=== PATIENT | female | born 1950 | race Caucasian/White ===

== ENCOUNTER → 2017-07-30 12:55 | Outpatient (CLI) | payer MEDICARE, OTHER, SELFPAY ==
--- NOTE | 2017-07-30 12:58 | HPBI_ITS ---
MAMMOGRAPHY - UNILATERAL DIAGNOSTIC: LEFT BREAST REASON FOR EXAM: Female, 67 years old. Six-month follow-up for a ultrasound-guided biopsy of the left breast. PERTINENT HISTORY: Sister with breast cancer. TECHNIQUE: Digital unilateral breast reginald (3D mammographic acquisition) in the CC and MLO projections. 2-D mediolateral oblique (MLO) and craniocaudad (CC) views of both breasts were obtained. CAD: Full Field Digital Mammography with Computer Added Detection was performed. COMPARISON: Comparison is made with prior sonogram of the left breast dated January 19, 2017 and prior mammogram dated December 28, 2016. FINDINGS: Breast Composition: The breasts are heterogeneously dense, which may obscure small masses. There are no dominant masses or suspicious calcifications. A tissue clip marker is seen in the retroareolar region of the left breast in keeping with prior biopsy. The nodular density has decreased in size. No other significant abnormalities are identified. HPBI/DIAG MAMM W/CAD, UNILAT IMPRESSION: Stable unilateral diagnostic mammogram. One year follow-up mammogram recommended. (A) ASSESSMENT CATEGORY: BIRADS Category 2: Benign. A letter regarding these results will be sent to the patient by the facility within 30 days. Approximately 10% of breast cancers are not detected by mammography. A normal mammogram should not delay biopsy of a clinically suspicious abnormality. Electronically Signed: Dmitri Riley MD at 14:11 EST Tel [phone], Service support ,
== END ==
PROVIDERS: Family Provider Family Medicine; PCP Family Medicine; Visit Provider Family Medicine
DX: R92.8 Other abnormal and inconclusive findings on diagnostic imaging of breast (principal); Z80.3 Family history of malignant neoplasm of breast
CPT/HCPCS: 77061; 77065; G0279

== ENCOUNTER → 2017-09-19 10:21 | Outpatient (CLI) | payer MEDICARE, OTHER, SELFPAY ==
--- NOTE | 2017-09-19 10:42 | RAD_ITS ---
STUDY: X-RAY - RIGHT KNEE REASON FOR EXAM: Female, 67 years old. Worsening right knee pain. TECHNIQUE: 4 view(s) of the knee. COMPARISON: None. FINDINGS: Normal visualized distal femur. Normal visualized proximal tibia and fibula. Normal proximal tibiofibular articulation. There is severe degenerative arthrosis of the medial femorotibial compartment with severe joint space narrowing. Normal lateral femorotibial compartment. There is mild degenerative arthrosis of the patellofemoral articulation. The soft tissue structures are unremarkable. RAD/Knee 4 or More Views IMPRESSION: Degenerative arthrosis. Electronically Signed: Dmitri Riley MD at 16:03 EDT Tel [phone], Service support ,
[2017-09-19 11:02] LABS: Absolute Lymphocyte Count 2.39 X10^3/ul (0.83-4.51); Absolute Neutrophil Count 3.6 X10^3/uL (2.0-7.7); Basophil# 0.05 X10^3/uL; Basophil% 0.8 % (0-1); Eosinophil# 0.23 X10^3/uL; Eosinophils% 3.5 % (0-5); Hematocrit 41.4 % (37-47); Hemoglobin 13.8 g/dl (12.0-15.0); Lymphocyte # 2.39 X10^3/ul (4.0); Lymphocyte % 36.2 % (19-41); Mean Corp Hgb Conc 33.3 g/gl (32-36); Mean Corpuscular Hgb 31.1 pg (27.0-32.0); Mean Corpuscular Volume 93.2 fL (81-99); Mean Platelet Vol. 9.7 fl (6.2-12.0); Monocyte# 0.38 X10^3/uL; Monocyte% 5.7 % (0-10); Neutrophil # 3.55 X10^3/uL (2.7-7.7); Neutrophil % 53.6 % (47-70); POSITIVE COUNT NO; POSITIVE DIFFERENTIAL NO; POSITIVE MORPHOLOGY NO; Platelet Count 290 K/mm3 (150-450); Red Blood Count 4.44 M/mm3 (4.2-5.4); White Blood Count 6.6 K/mm3 (4.4-11.0)
[2017-09-19 11:31] LABS: ALB/GLOB Ratio 1.1 RATIO (0.9-2.4); AST(SGOT) 24 U/L (15-37); Alanine Aminotransfer ALT/SGPT 24 U/L (13-56); Alkaline Phosphatase 86 U/L (45-117); Anion Gap 8 (5-15); BUN 17 mg/dL (7-18); BUN/Creat Ratio 20.2 RATIO (10-20); Calcium,Total 9.5 mg/dL (8.5-10.1); Chloride 102 mmol/L (98-107); Creatinine, Serum 0.84 mg/dL (0.55-1.02); EST Glomerular Filtration Rate 72 mL/min (>60); Est Glom Filt Rate - Afr Amer 87 mL/min (>60); Globulin 3.8 g/dL (2.2-4.2); Glucose 99 mg/dL (74-106); Iron 94 ug/dL (50-170); Potassium 4.5 mmol/L (3.5-5.1); Protein, Total 7.8 g/dL (6.4-8.2); Sodium Level 140 mmol/L (136-145)
[2017-09-19 11:35] LABS: Vitamin B12 1238 pg/mL (211-911)
== END ==
PROVIDERS: Family Provider Family Medicine; PCP Family Medicine; Visit Provider Family Medicine
DX: M25.561 Pain in right knee (principal); D64.9 Anemia, unspecified; R53.83 Other fatigue; E61.1 Iron deficiency; E53.8 Deficiency of other specified B group vitamins
CPT/HCPCS: 36415; 73564; 80053; 82607; 83540; 85025

== ENCOUNTER → 2018-01-03 11:56 | Outpatient (CLI) | payer MEDICARE, OTHER, SELFPAY ==
--- NOTE | 2018-01-03 11:58 | BI_ITS ---
MAMMOGRAPHY - BILATERAL SCREENING 3-D ARCHIE SYNTHESIS REASON FOR EXAM: Female, 67 years old. Bilateral Screening 3-D tomosynthesis PERTINENT HISTORY: Sister with breast cancer.. TECHNIQUE: 2-D mammograms and 3-D Archie synthesis of the breast (s) were performed. CAD was performed. COMPARISON: None. FINDINGS: The breast composition is heterogeneously dense that can obscure small breast masses. Scattered benign calcifications are seen. No dense spiculated masses or suspicious microcalcifications are identified. No architectural distortion is identified. There is no skin thickening or retraction. There has been no significant change since the prior study. BI/SCREENING MAMM (CAD), BILAT IMPRESSION: No mammographic signs of malignancy. Routine yearly mammograms recommended. ASSESSMENT CATEGORY: BIRADS Category 2: Benign. A letter regarding these results will be sent to the patient by the facility within 30 days. FOLLOW UP RECOMMENDATION: Yearly follow up mammogram recommended. (A) Approximately 10% of breast cancers are not detected by mammography. A normal mammogram should not delay biopsy of a clinically suspicious abnormality. Electronically Signed: Travis Suarez MD at 12:50 EDT , Service support ,
== END ==
PROVIDERS: Family Provider Family Medicine; PCP Family Medicine; Visit Provider Family Medicine
DX: Z12.31 Encounter for screening mammogram for malignant neoplasm of breast (principal)
CPT/HCPCS: 77063; 77067

== ENCOUNTER → 2018-05-14 11:39 | Outpatient (CLI) | payer MEDICARE, OTHER, SELFPAY ==
[2018-05-14 12:21] LABS: Absolute Lymphocyte Count 1.99 X10^3/ul (0.83-4.51); Absolute Neutrophil Count 4.2 X10^3/uL (2.0-7.7); Basophil# 0.03 X10^3/uL; Basophil% 0.4 % (0-1); Eosinophil# 0.12 X10^3/uL; Eosinophils% 1.8 % (0-5); Hematocrit 41.9 % (37-47); Hemoglobin 13.8 g/dl (12.0-15.0); Lymphocyte # 1.99 X10^3/ul (4.0); Lymphocyte % 29.7 % (19-41); Mean Corp Hgb Conc 32.9 g/gl (32-36); Mean Corpuscular Hgb 30.7 pg (27.0-32.0); Mean Corpuscular Volume 93.1 fL (81-99); Mean Platelet Vol. 9.6 fl (6.2-12.0); Monocyte# 0.32 X10^3/uL; Monocyte% 4.8 % (0-10); Neutrophil # 4.23 X10^3/uL (2.7-7.7); Neutrophil % 63.2 % (47-70); Platelet Count 293 K/mm3 (150-450); RBC Distribution Width CV 12.2 % (11.6-14.6); RBC Distribution Width SD 41.2 fl (35.1-43.9); White Blood Count 6.7 K/mm3 (4.4-11.0)
[2018-05-14 12:25] LABS: POSITIVE COUNT NO; POSITIVE DIFFERENTIAL NO; POSITIVE MORPHOLOGY NO
== END ==
LOC: LAB.FUTURE 11:42 → WOBLAB 17:06
PROVIDERS: Family Provider Family Medicine; PCP Family Medicine; Referring Provider Specialist; Visit Provider Obstetrics & Gynecology
DX: N39.0 Urinary tract infection, site not specified (principal); M17.11 Unilateral primary osteoarthritis, right knee
CPT/HCPCS: 36415; 85025; 87086

== ENCOUNTER → 2018-06-18 12:21 | Outpatient (CLI) | payer MEDICARE, OTHER, SELFPAY ==
--- NOTE | 2018-06-18 12:25 | US_ITS ---
STUDY: ULTRASOUND OF THE FEMALE PELVIS - COMPLETE REASON FOR EXAM: Female, 68 years old. Lower abdominal pain. TECHNIQUE: Transabdominal and Transvaginal TECHNICAL QUALITY: Adequate. COMPARISON: CT dated November 21, 2016 and a pelvic ultrasound dated August 15, 2010 FINDINGS: The uterus is anteverted and is in a midline position. The uterus measures 4.9 x 4.4 x 3.1 cm. Normal uterine cervix. The endometrium measures 1.6 mm in thickness, and is hyperechoic. There is no demonstrated endometrial mass. There is a 1.2 x 1.1 x 1.1 cm round hypoechoic focus within the posterior uterine fundus. I.U.D. - The patient does not have an I.U.D. The right ovary is non-visualized. The left ovary is non-visualized. There is no fluid in the cul-de-sac. US/Transvaginal Non- IMPRESSION: 1.2 x 1.1 x 1.1 cm round soft tissue focus within the uterine fundus that likely reflects an intramural fibroid. Nonvisualization of the ovaries. Electronically Signed: Trintiy Mendes MD at 17:20 EST Tel , Service support ,
--- NOTE | 2018-06-18 12:25 | US_ITS ---
STUDY: ULTRASOUND OF THE FEMALE PELVIS - COMPLETE REASON FOR EXAM: Female, 68 years old. Lower abdominal pain. TECHNIQUE: Transabdominal and Transvaginal TECHNICAL QUALITY: Adequate. COMPARISON: CT dated November 21, 2016 and a pelvic ultrasound dated August 15, 2010 FINDINGS: The uterus is anteverted and is in a midline position. The uterus measures 4.9 x 4.4 x 3.1 cm. Normal uterine cervix. The endometrium measures 1.6 mm in thickness, and is hyperechoic. There is no demonstrated endometrial mass. There is a 1.2 x 1.1 x 1.1 cm round hypoechoic focus within the posterior uterine fundus. I.U.D. - The patient does not have an I.U.D. The right ovary is non-visualized. The left ovary is non-visualized. There is no fluid in the cul-de-sac. US/Pelvic (Non ) IMPRESSION: 1.2 x 1.1 x 1.1 cm round soft tissue focus within the uterine fundus that likely reflects an intramural fibroid. Nonvisualization of the ovaries. Electronically Signed: Trinity Mendes MD at 17:20 EST Tel , Service support ,
== END ==
PROVIDERS: Referring Provider Obstetrics & Gynecology; Visit Provider Obstetrics & Gynecology
DX: R10.84 Generalized abdominal pain (principal)
CPT/HCPCS: 76830; 76856

== ENCOUNTER → 2018-06-19 12:05 | Outpatient (CLI) | payer MEDICARE, OTHER, SELFPAY ==
[2018-06-19 13:33] LABS: Hematocrit 42.8 % (37-47); Hemoglobin 13.9 g/dl (12.0-15.0); Mean Corp Hgb Conc 32.5 g/gl (32-36); Mean Corpuscular Hgb 30.2 pg (27.0-32.0); Platelet Count 279 K/mm3 (150-450); RBC Distribution Width CV 12.2 % (11.6-14.6); RBC Distribution Width SD 41.3 fl (35.1-43.9); White Blood Count 7.5 K/mm3 (4.4-11.0)
[2018-06-19 13:38] LABS: Scan Indicated on CBC? Y/N NO
== END ==
LOC: WOBLAB 05-22 15:01 → LAB 12:08
PROVIDERS: Family Provider Family Medicine; PCP Family Medicine; Referring Provider Obstetrics & Gynecology; Visit Provider Obstetrics & Gynecology
DX: R10.9 Unspecified abdominal pain (principal)
CPT/HCPCS: 36415; 82274; 83036; 84439; 84443; 84481; 85027; 87177; 87209; 87493; 87506

== ENCOUNTER → 2018-07-08 15:15 | Outpatient (CLI) | payer MEDICARE, OTHER, SELFPAY ==
[2018-07-08 15:23] LABS: Bacteria 0 SEEN /hpf (None Seen); Mucous, Urine 0 SEEN /hpf (<or=2+); Red Blood Cells-Urine 0 SEEN /hpf (0-5); Squamous Epithelial Cells - UA 0 SEEN /hpf (5-10); White Blood Cells 0 SEEN /hpf (0-5)
[2018-07-08 16:30] LABS: AST(SGOT) 19 U/L (15-37); Alanine Aminotransfer ALT/SGPT 25 U/L (13-56); Alkaline Phosphatase 86 U/L (45-117); Amylase 38 U/L (25-115); Anion Gap 12 (5-15); BUN 16 mg/dL (7-18); BUN/Creat Ratio 20.3 RATIO (10-20); Calcium,Total 9.4 mg/dL (8.5-10.1); Chloride 102 mmol/L (98-107); Creatinine, Serum 0.79 mg/dL (0.55-1.02); EST Glomerular Filtration Rate 77 mL/min (>60); Est Glom Filt Rate - Afr Amer 93 mL/min (>60); Globulin 3.9 g/dL (2.2-4.2); Glucose 93 mg/dL (74-106); Lipase 80 U/L (73-393); Magnesium 2.3 mg/dL (1.6-2.6); Potassium 3.7 mmol/L (3.5-5.1); Protein, Total 7.9 g/dL (6.4-8.2); Sodium Level 139 mmol/L (136-145); Thyroid Stim Hormone (TSH) 1.09 uIU/mL (0.358-3.74)
[2018-07-08 18:31] LABS: Color, Urine Yellow (Yellow); Glucose, Dipstick Normal (Normal); Ketone-Dipstick Negative (Negative); Leukocyte Esterase-Dipstick 25 /ul (Negative); Nitrite-Dipstick Negative (Negative); Occult Blood-Urine Negative /ul (Negative); Protein-Dipstick Negative (Negative); Urine Bilirubin Dipstick Negative (Negative); Urine Clarity Clear (Clear); Urine Urobilinogen Normal (Normal)
[2018-07-08 20:30] LABS: Chlamydia Trachomatis by PCR Negative (Negative); Neisserai gonorrhoeae by PCR Negative (Negative); Probe Check PASS; Sample Adequacy Control PASS; Specimen Processing Control PASS
== END ==
PROVIDERS: Family Provider Family Medicine; PCP Family Medicine; Referring Provider Family Medicine; Visit Provider Family Medicine
DX: R19.7 Diarrhea, unspecified (principal); R10.9 Unspecified abdominal pain; R53.83 Other fatigue; R30.0 Dysuria; N76.0 Acute vaginitis
CPT/HCPCS: 36415; 80053; 81001; 82150; 83690; 83735; 84443; 87491; 87591

== ENCOUNTER → 2018-10-08 15:15 | Outpatient (CLI) | payer MEDICARE, OTHER, SELFPAY ==
[2018-10-08 17:18] LABS: ALB/GLOB Ratio 1.1 RATIO (0.9-2.4); AST(SGOT) 20 U/L (15-37); Alanine Aminotransfer ALT/SGPT 23 U/L (13-56); Alkaline Phosphatase 86 U/L (45-117); Anion Gap 10 (5-15); BUN 16 mg/dL (7-18); BUN/Creat Ratio 18.5 RATIO (10-20); Calcium,Total 9.3 mg/dL (8.5-10.1); Chloride 99 mmol/L (98-107); Creatinine, Serum 0.87 mg/dL (0.55-1.02); EST Glomerular Filtration Rate 69 mL/min (>60); Est Glom Filt Rate - Afr Amer 83 mL/min (>60); Free T3 2.9 pg/mL (2.18-3.98); Globulin 3.7 g/dL (2.2-4.2); Glucose 92 mg/dL (74-106); Potassium 3.8 mmol/L (3.5-5.1); Protein, Total 7.7 g/dL (6.4-8.2); Sodium Level 136 mmol/L (136-145); T4 Free Direct 1.05 ng/dL (0.76-1.46); Thyroid Stim Hormone (TSH) 1.54 uIU/mL (0.358-3.74)
== END ==
PROVIDERS: Family Provider Family Medicine; PCP Family Medicine; Referring Provider Family Medicine; Visit Provider Family Medicine
DX: R53.83 Other fatigue (principal); R06.02 Shortness of breath
CPT/HCPCS: 36415; 80053; 84439; 84443; 84481

== ENCOUNTER → 2018-10-10 11:14 | Outpatient (CLI) | payer MEDICARE, OTHER, SELFPAY ==
--- NOTE | 2018-10-10 11:17 | US_ITS ---
STUDY: ULTRASOUND BREAST - LEFT REASON FOR EXAM: Female, 68 years old. Pain in the left breast. TECHNIQUE: Axial and longitudinal images of the LEFT breast were performed with a high resolution ultrasound transducer. COMPARISON: Comparison is made with prior ultrasound of the left breast dated January 19, 2017 and January 01, 2017. FINDINGS: LEFT Breast: There is a 7 mm x 7 mm x 5 mm well-defined hypoechoic solid nodule at the 9:00 position of the breast. This was previously biopsied. US/Breast Limited Unilateral IMPRESSION: Prior biopsy of a small benign-appearing hypoechoic solid nodule at the 9:00 position of the breast. No other abnormality is seen. ASSESSMENT CATEGORY: BIRADS Category 2: Benign. A letter regarding these results will be sent to the patient by the facility within 30 days. Electronically Signed: Dmitri Riley, at 14:43 EDT , Service support ,
--- NOTE | 2018-10-10 11:17 | BI_ITS ---
MAMMOGRAPHY - BILATERAL DIAGNOSTIC REASON FOR EXAM: Female, 68 years old. Left lateral breast pain x2 weeks PERTINENT HISTORY: . Family history with sister diagnosed with breast cancer at age 61 and niece at age 40. TECHNIQUE: Digital examination. Mediolateral oblique (MLO) and craniocaudad (CC) views of both breasts were obtained. CAD: CAD was performed on this study. COMPARISON: January 03, 2018 FINDINGS: Breast Composition: The breasts are heterogeneously dense, which may obscure small masses. There are no dominant masses or suspicious calcifications. There are scattered, typically benign appearing calcifications bilaterally. No other significant abnormalities are identified. BI/DIAG MAMM W/CAD, BILAT IMPRESSION: Stable bilateral diagnostic mammogram. ASSESSMENT CATEGORY: BIRADS Category 1: Negative. A letter regarding these results will be sent to the patient by the facility within 30 days. FOLLOW UP RECOMMENDATION: Approximately 10% of breast cancers are not detected by mammography. A normal mammogram should not delay biopsy of a clinically suspicious abnormality. Recommendation: If there is a focal palpable abnormality or there are focal symptoms, highly recommend referral for further evaluation consisting of additional mammography and sonography. Electronically Signed: mSooth Martinez MD at 14:36 EDT , Service support ,
== END ==
PROVIDERS: Family Provider Family Medicine; PCP Family Medicine; Referring Provider Family Medicine; Visit Provider Family Medicine
DX: N64.4 Mastodynia (principal)
CPT/HCPCS: 76642; 77062; 77066; G0279

== ENCOUNTER → 2018-10-21 12:31 | Outpatient (CLI) | payer MEDICARE, OTHER, SELFPAY ==
[2018-10-21 13:20] LABS: Absolute Lymphocyte Count 2.47 X10^3/ul (0.83-4.51); Absolute Neutrophil Count 3.4 X10^3/uL (2.0-7.7); Basophil# 0.04 X10^3/uL; Basophil% 0.6 % (0-1); Eosinophil# 0.11 X10^3/uL; Eosinophils% 1.7 % (0-5); Hematocrit 44.4 % (37-47); Hemoglobin 15.2 g/dl (12.0-15.0); Lymphocyte # 2.47 X10^3/ul (4.0); Lymphocyte % 39.2 % (19-41); Mean Corp Hgb Conc 34.2 g/gl (32-36); Mean Corpuscular Hgb 30.3 pg (27.0-32.0); Mean Corpuscular Volume 88.4 fL (81-99); Monocyte# 0.33 X10^3/uL; Monocyte% 5.2 % (0-10); Neutrophil # 3.35 X10^3/uL (2.7-7.7); Neutrophil % 53.3 % (47-70); POSITIVE COUNT NO; POSITIVE DIFFERENTIAL NO; POSITIVE MORPHOLOGY NO; Platelet Count 314 K/mm3 (150-450); RBC Distribution Width CV 12.1 % (11.6-14.6); RBC Distribution Width SD 38.6 fl (35.1-43.9); Red Blood Count 5.02 M/mm3 (4.2-5.4); White Blood Count 6.3 K/mm3 (4.4-11.0)
[2018-10-21 13:41] LABS: ALB/GLOB Ratio 1.2 RATIO (0.9-2.4); AST(SGOT) 20 U/L (15-37); Alanine Aminotransfer ALT/SGPT 26 U/L (13-56); Albumin, Serum 4.5 g/dL (3.2-5.0); Alkaline Phosphatase 91 U/L (45-117); Anion Gap 11 (5-15); BUN 16 mg/dL (7-18); BUN/Creat Ratio 16.3 RATIO (10-20); Calcium,Total 9.9 mg/dL (8.5-10.1); Chloride 106 mmol/L (98-107); Creatinine, Serum 0.98 mg/dL (0.55-1.02); EST Glomerular Filtration Rate 60 mL/min (>60); Est Glom Filt Rate - Afr Amer 72 mL/min (>60); Globulin 3.9 g/dL (2.2-4.2); Glucose 103 mg/dL (74-106); Potassium 3.4 mmol/L (3.5-5.1); Protein, Total 8.4 g/dL (6.4-8.2); Sodium Level 140 mmol/L (136-145)
[2018-10-21 13:55] LABS: BNP,B-Type NATRIURETIC PEPTIDE 28.4 pg/mL (0-100)
--- NOTE | 2018-10-21 14:19 | CT_ITS ---
STUDY: CTA CHEST REASON FOR EXAM: Female, 68 years old. Elevated d-dimer RADIATION DOSAGE (If Supplied By Facility): CTDIvol = ( 7.55 ) mGy, DLP = ( 370.20 ) mGycm TECHNIQUE: The examination was performed with the intravenous administration of 100 IV Isovue 370. Post-processing of the angiographic images was performed, with multiplanar reformation and 3D reconstruction. Individualized dose optimization techniques were used for this CT. COMPARISON: None. FINDINGS: There is postoperative change in the left breast soft tissue metallic density or biopsy in the medial aspect of the left breast. Normal enhancement of the main pulmonary artery and right and left pulmonary arteries. Normal enhancement of the bilateral peripheral pulmonary arteries. There is no demonstrated pulmonary embolism. There is atherosclerotic tortuosity of the aortic arch and descending thoracic aorta. Is a bovine arch. There is no demonstrated aortic dissection. Normal heart and pericardium. Within the diaphragmatic fat adjacent to the diaphragm and inferior vena cava there is a 0.68 cm lymph node.. Normal mediastinum. Normal hilar regions. Normal visualized trachea and bronchi. As are hyperinflated. There is no focal consolidation pleural effusion or pulmonary edema. Normal pulmonary parenchyma. Normal pleura. Normal chest wall structures. There are degenerative changes of thoracic spine. The liver appears borderline enlarged. There is a minimal right hernia. CT/CTA Chest W/WO Contrast IMPRESSION: No evidence of pulmonary embolism. Partially calcified tortuous aorta. Nonspecific hyperinflation of the lungs no evidence of focal infiltrate. Visualized postoperative change status post biopsy left breast. Electronically Signed: Oralia Kilpatrick MD at 15:31 EDT Tel , Service support ,
== END ==
PROVIDERS: Family Provider Family Medicine; PCP Family Medicine; Referring Provider Family Medicine; Visit Provider Family Medicine
DX: R07.9 Chest pain, unspecified (principal); R06.00 Dyspnea, unspecified; I48.2 Chronic atrial fibrillation; R53.83 Other fatigue; R79.89 Other specified abnormal findings of blood chemistry
CPT/HCPCS: 36415; 71275; 80053; 83880; 84484; 85025; 85379; Q9967

== ENCOUNTER → 2018-10-25 12:32 | Outpatient (CLI) | payer MEDICARE, OTHER, SELFPAY ==
--- NOTE | 2018-10-25 12:35 | STEWCON_ITS ---
Reason For Study: Dyspnea Stress Results Protocol: Elias Protocol Maximum Predicted HR: 151 bpm Target HR: 128 bpm % Maximum Predicted HR: 83 % DurationHeart Rate Stage (mm:ss) (bpm) BP Comment Baseline 67 144/70No Chest Pain; Diluted Definity 3 ML Given Elias Protocol Stage I 3:00 97 164/70No Chest Pain Elias Protocol Stage II 3:00 120 170/68No Chest Pain Elias Protocol Stage III 3:00 125 / No Chest Pain Recovery 78 130/68No Chest Pain Stress Duration: 9:00 mm:ss Maximum Stress HR: 125 bpm METS: 10 Baseline Echocardiogram Findings Stress Echo Wall motion Data Resting WM Intermediate WM Stress WM Resting Wall Motion Wall Motion Stress All segments Normal. All segments Hyperkinetic. Ejection Fraction 60 %. Ejection Fraction 70 %. Stress Results Heart rate response: inadequate Blood pressure response: normal resting BP - appropriate response Arrhythmias: rare PVC durng exercise and rare PAC / PVC during early recovery Functional capacity: good Stopped secondary to: dyspnea. EKG Data Baseline ECG: Normal Sinus Rhythm. Peak exercise ECG: No Obvious ECG Changes. Symptoms with Stress No c/o chest discomfort during exercise / recovery. Interpretation Summary Negative (Inadequate: %PMHR <85%) Stress Echocardiogram The study was technically difficult. Contrast injection was performed. Ordering Physician: Vivian Payne Referring Physician: Jay Pinzon Performed By: Sagar Lopez RCS
== END ==
PROVIDERS: Family Provider Family Medicine; PCP Family Medicine; Referring Provider Family Medicine; Visit Provider Family Medicine
DX: R06.00 Dyspnea, unspecified (principal); I48.2 Chronic atrial fibrillation; R07.9 Chest pain, unspecified
CPT/HCPCS: 93017; 93350; Q9957; A4216; C8928

== ENCOUNTER → 2018-12-05 14:49 | Outpatient (CLI) | payer MEDICARE, OTHER, SELFPAY ==
--- NOTE | 2018-12-05 15:18 | ECHOD_ITS ---
Reason For Study: Dyspnea Procedure This was a 2D Doppler, Color Flow transthoracic echocardiogram. The study was technically difficult. Exam performed in department. Left Ventricle Normal LV size. Left ventricular systolic function is normal. The estimated ejection fraction is 65 %. No evidence for diastolic dysfunction. No regional wall motion abnormalities noted. Right Ventricle Normal RV size. Normal systolic function. Atria Normal left atrium. Normal right atrium. No doppler evidence for ASD. Mitral Valve There is no mitral annular calcification. Normal mitral valve. Mild-Moderate (1-2+) mitral valve insufficiency. Tricuspid Valve Normal tricuspid valve. Mild tricuspid valve insufficiency. Right ventricular systolic pressure estimated to be 29 mmHg. Aortic Valve Trisinus/trileaflet aortic valve. Normal aortic valve. Trivial aortic valve insufficiency. Pulmonic Valve The pulmonic valve is not well visualized. Great Vessels Normal sized aortic root. Pericardium/Pleural No pericardial effusion. MMode/2D Measurements & Calculations LVIDd: 4.4 cm IVSd: 1.2 cm Ao root diam: 3.3 cm LVIDs: 2.5 cm LVPWd: 1.0 cm RVDd: 3.4 cm FS: 44.2 % LAV(MOD-bp): 31.2 ml LVAd ap4: 23.6 cm2 SV(MOD-sp4): 44.6 ml LAV(MOD-bp) Indexed: 18.0 ml/m2 EDV(MOD-sp4): 63.9 ml LAV(MOD-sp2): 42.2 ml EDV(sp4-el): 66.0 ml LAV(MOD-sp4): 22.0 ml LVAs ap4: 11.8 cm2 ESV(MOD-sp4): 19.3 ml ESV(sp4-el): 20.1 ml EF(MOD-sp4): 69.8 % EF(sp4-el): 69.6 % SV(sp4-el): 45.9 ml LA A4 area: 9.5 cm2 LA dimension(2D): 3.6 cm RA A4 area: 13.0 cm2 Doppler Measurements & Calculations MV E max fabiano: 90.1 cm/sec Lat Peak E' Fabiano: 10.3 cm/sec Med Peak E' Fabiano: 7.4 cm/sec MV A max fabiano: 47.5 cm/sec E/E' lat: 8.7 E/E' med: 12.2 MV E/A: 1.9 Ao V2 max: 166.1 cm/sec LV V1 max: 166.6 cm/sec PA V2 max: 105.7 cm/sec Ao max P.0 mmHg LV V1 max P.1 mmHg Ao V2 mean: 107.0 cm/sec Ao mean P.2 mmHg Ao V2 VTI: 37.5 cm TR max fabiano: 256.7 cm/sec TR max P.4 mmHg Interpretation Summary The study was technically difficult. Left ventricular systolic function is normal. The estimated ejection fraction is 65 %. Mild-Moderate (1-2+) mitral valve insufficiency. Mild tricuspid valve insufficiency. Trivial aortic valve insufficiency. Right ventricular systolic pressure estimated to be 29 mmHg. No evidence for diastolic dysfunction. Ordering Physician: Vivian Payne Referring Physician: Vivian Payne Performed By: Vida Webster, RDCS, RVT
== END ==
PROVIDERS: Family Provider Family Medicine; PCP Family Medicine; Referring Provider Family Medicine; Visit Provider Family Medicine
DX: R06.00 Dyspnea, unspecified (principal); I48.2 Chronic atrial fibrillation; R60.9 Edema, unspecified
CPT/HCPCS: 93306

== ENCOUNTER → 2019-02-18 10:04 | Outpatient (CLI) | payer MEDICARE, OTHER, SELFPAY ==
--- NOTE | 2019-02-18 10:15 | RAD_ITS ---
STUDY: X-RAY CHEST REASON FOR EXAM: Female, 69 years old. Cough and dyspnea x12 days TECHNIQUE: PA and lateral views of the chest. COMPARISON: Previous study of 06/16/2014 FINDINGS: The lungs are clear and expanded. There is no demonstrated pleural abnormality. Normal size heart. Normal mediastinum and phyllis. Normal visualized pulmonary arteries. There are calcified plaques of the aortic arch. Normal visualized thoracic spine. Normal visualized ribs, clavicles, and shoulders. There is no demonstrated abnormality of the visualized soft tissue structures of the upper abdomen. RAD/Chest PA and Lateral IMPRESSION: Calcified plaques of the aortic arch. No acute cardiopulmonary disease process is seen. Electronically Signed: Rudy Carter MD at 23:42 EDT , Service support ,
[2019-02-18 10:39] LABS: Absolute Lymphocyte Count 1.92 X10^3/uL (0.83-4.51); Absolute Neutrophil Count 4.1 X10^3/uL (2.0-7.7); Basophil# 0.05 X10^3/uL; Basophil% 0.7 % (0-1); Eosinophil# 0.16 X10^3/uL; Eosinophils% 2.3 % (0-5); Hematocrit 38.9 % (37-47); Hemoglobin 12.8 g/dL (12.0-15.0); Lymphocyte # 1.92 X10^3/ul (4.0); Mean Corp Hgb Conc 32.9 g/dL (32-36); Mean Corpuscular Hgb 30.2 pg (27.0-32.0); Mean Corpuscular Volume 91.7 fL (81-99); Mean Platelet Vol. 9.1 fl (6.2-12.0); Monocyte# 0.58 X10^3/uL; Monocyte% 8.5 % (0-10); NRBC Flagged by Analyzer 0 % (0-5); Neutrophil # 4.12 X10^3/uL (2.7-7.7); Neutrophil % 60.1 % (47-70); Platelet Count 406 K/mm3 (150-450); RBC Distribution Width CV 12.1 % (11.6-14.6); RBC Distribution Width SD 40.5 fl (35.1-43.9); Red Blood Count 4.24 M/mm3 (4.2-5.4); White Blood Count 6.9 K/mm3 (4.4-11.0)
[2019-02-18 11:14] LABS: ALB/GLOB Ratio 0.9 RATIO (0.9-2.4); AST(SGOT) 17 U/L (15-37); Alanine Aminotransfer ALT/SGPT 24 U/L (13-56); Albumin, Serum 3.6 g/dL (3.2-5.0); Alkaline Phosphatase 86 U/L (45-117); Anion Gap 7 (5-15); BUN 13 mg/dL (7-18); BUN/Creat Ratio 15.3 RATIO (10-20); Calcium,Total 9.3 mg/dL (8.5-10.1); Chloride 106 mmol/L (98-107); Creatinine, Serum 0.85 mg/dL (0.55-1.02); EST Glomerular Filtration Rate 70 mL/min (>60); Est Glom Filt Rate - Afr Amer 85 mL/min (>60); Glucose 105 mg/dL (74-106); Potassium 4.3 mmol/L (3.5-5.1); Protein, Total 7.6 g/dL (6.4-8.2); Sodium Level 137 mmol/L (136-145)
== END ==
PROVIDERS: Family Provider Family Medicine; PCP Family Medicine; Referring Provider Family Medicine; Visit Provider Family Medicine
DX: R05 Cough (principal); R53.83 Other fatigue; R06.00 Dyspnea, unspecified
CPT/HCPCS: 36415; 71046; 80053; 85025

== ENCOUNTER 2019-02-27 18:51 | Emergency (ER) | payer MEDICARE, OTHER, SELFPAY ==
[2019-02-27 18:54] VITALS: BP 155/81; PULSE 90; RESP 18; TEMP 36.2; O2SAT 97; BMI 50.8
--- NOTE | 2019-02-27 19:31 | US_ITS ---
STUDY: VENOUS DOPPLER ULTRASOUND - LEFT LOWER EXTREMITY REASON FOR EXAM: Female, 69 years old. Pain TECHNIQUE: Ultrasound evaluation of the deep vein system to include arroyo-scale imaging and compression was performed. Arroyo-scale imaging and Doppler sonographic evaluation, including duplex spectral analysis and qualitative color flow sonography, was performed. COMPARISON: None. FINDINGS: Common Femoral Vein: Normal compression, spontaneity and augmentation. Normal color Doppler. Common Femoral Vein/Greater Saphenous Junction: Normal compression, spontaneity and augmentation. Normal color Doppler. Deep Femoral Vein: Normal compression, spontaneity and augmentation. Normal color Doppler. Femoral Proximal: Normal compression, spontaneity and augmentation. Normal color Doppler. Femoral Middle: Normal compression, spontaneity and augmentation. Normal color Doppler. Femoral Distal: Normal compression, spontaneity and augmentation. Normal color Doppler. Popliteal Vein: Normal compression, spontaneity and augmentation. Normal color Doppler. Posterior Tibial Vein: Normal compression, spontaneity and augmentation. Normal color Doppler. Peroneal Vein: Normal compression, spontaneity and augmentation. Normal color Doppler. US/Venous Duplex Imag/Limited/Uni IMPRESSION: Normal venous Doppler ultrasound of the lower extremity. Electronically Signed: Cipriano Rolon, at 20:05 EDT Tel , Service support ,
--- NOTE | 2019-02-27 19:34 | RAD_ITS ---
STUDY: X-RAY - LUMBAR SPINE REASON FOR EXAM: Female, 69 years old. Back pain TECHNIQUE: 3 view(s) of the lumbar spine were obtained. COMPARISON: None FINDINGS: There is mild osteophytosis from L2 through L4. Alignment is normal. No displaced fractures are present. Vertebral body heights are maintained. There are no significant degenerative changes. RAD/Lumbar Spine 2 or 3 Views IMPRESSION: No displaced fracture or subluxation. Mild osteophytosis from L2 through L4. Electronically Signed: Cipriano Rolon, at 19:57 EDT Tel , Service support ,
[2019-02-27] MEDS: Ketorolac 30 MG/ML Syringe IM (20:02)
[2019-02-27] MEDS: Morphine 4 MG/ML Syringe IM (20:43)
[2019-02-27] MEDS: Ondansetron ODT 4 MG Tablet 8 MG PO (20:59)
[2019-02-27 21:00] VITALS: BP 155/66; PULSE 64; RESP 18; O2SAT 99
--- NOTE | 2019-02-27 21:15 | ED.DCSUM_ITS ---
- ER Visit Summary Date of Service: 02/27/19 Chief Complaint: Back pain History of Present Illness: The patient is a 69 F who presents with back pain that radiates down the left leg. It started yesterday. She states that she has sharp pain in the left lumbar back and radiates down the left leg to the ankle. She states that she has been sick recently with URI-like symptoms. She was on a steroid pack and a Z-Jelani last week. She took 2 tramadol today but it just made her nauseous. She does have a history of sciatica in the past. Physical Examination: Vital signs are reviewed. HEENT exam unremarkable. Heart is regular rate and rhythm. Lungs are clear. Abdomen soft. Back is tender in the left lumbar paraspinal area. Extremities are nontender. She has no swelling. Her left foot is slightly colder than the right. However there is no cyanosis. She has full range of motion without any pain. Her neurologic exam is normal. Test Results: Lumbar spine x-rays show chronic changes. Duplex ultrasound is negative for DVT. Emergency Department Course and Treatment: Patient was given Toradol which did not help with her pain so she is given morphine IM and Zofran ODT. Patient is feeling some improvement. I will send her home with Lidoderm patches and prednisone. She will follow-up with her PCP Treatment Plan: [] Disposition: Discharge Impression: Sciatica This note was generated with [employer] dictation software. It may contain incorrect words, spelling, and punctuation that were not noted in review of the chart prior to signing ED Disposition - Plan for ED Patient: Referrals: Vivian Payne DO [Primary Care Provider] -
--- NOTE | 2019-02-27 21:17 | ED.DEP ---
ED Disposition - Plan for ED Patient: Disposition: Home or Assisted Living Instructions: BACK PAIN w/ SCIATICA Prescriptions: Prednisone [Deltasone] 40 mg PO DAILY #10 tab Prescription Printed Lidocaine [Lidoderm Patch] 1 patch TOPICAL DAILY #10 patch Prescription Printed Referrals: Vivian Payne DO [Primary Care Provider] -
== END 2019-02-27 21:35 | disposition home or self-care (01) ==
PROVIDERS: Emergency Provider Emergency Medicine; Family Provider Family Medicine; PCP Family Medicine
DX: M54.42 Lumbago with sciatica, left side (principal); M79.605 Pain in left leg; Z79.82 Long term (current) use of aspirin; Z79.52 Long term (current) use of systemic steroids; Z79.899 Other long term (current) drug therapy
CPT/HCPCS: 72100; 93971; 96372; 99283

== ENCOUNTER → 2019-08-25 10:23 | Outpatient (CLI) | payer MEDICARE, OTHER, SELFPAY ==
--- NOTE | 2019-08-25 10:29 | US_ITS ---
STUDY: ABDOMINAL ULTRASOUND - RIGHT UPPER QUADRANT REASON FOR VISIT: Female, 69 years old RUQ PAIN TECHNIQUE: Ultrasound evaluation of the right upper quadrant was performed with real-time and static ramos-scale imaging. TECHNICAL QUALITY: Adequate. COMPARISON: Comparison is made with prior ultrasound of the abdomen dated February 23, 2015. FINDINGS: Liver: The liver measures 14.7 cm. There is increased echogenicity consistent with fatty infiltration. The bile ducts are within normal limits. There is hepatic color flow. The direction of portal flow is hepatopetal. There is no demonstrated mass lesion. Gallbladder: Normal distended gallbladder. The gallbladder wall measures 3.0 mm. There is a negative sonographic Oleary''s sign. There is no pericholecystic fluid. There are no gallstones. Common Bile Duct (C.B.D.): The common bile duct measures 6.0 mm. Pancreas: Normal size of the head, body and tail of the pancreas. There is normal echogenicity of the pancreas. There is no demonstrated pancreatic mass or cyst. Right Kidney: Normal size of the right kidney. The right kidney measures 11.9 cm x 5.2 cm x 4.6 cm. Normal renal cortex. The right cortex measures 1.7 cm. There is no demonstrated renal mass or cyst. There is no right hydronephrosis. US/Abdomen Limited IMPRESSION: Fatty infiltration of the liver. Electronically Signed: Dmitri Riley, at 15:22 EDT , Service support ,
--- NOTE | 2019-08-25 10:29 | RAD_ITS ---
STUDY: X-RAY - RIGHT KNEE REASON FOR EXAM: Female, 69 years old. OSTEOARTHRITIS, RT KNEE PAIN TECHNIQUE: 4 view(s) of the knee. COMPARISON: None. FINDINGS: Osteophytosis of the distal femur and proximal tibia, more severe medially. Otherwise normal visualized distal femur. Normal visualized proximal tibia and fibula. There is arthrosis of the proximal tibiofibular articulation. There is no demonstrated fracture. There is severe degenerative arthrosis of the medial femorotibial compartment with severe joint space narrowing. There is mild degenerative arthrosis of the lateral femorotibial compartment. There is mild degenerative arthrosis of the patellofemoral articulation. Minimal joint effusion. The soft tissue structures are unremarkable. RAD/Knee 4 or More Views IMPRESSION: Degenerative disease as described. Electronically Signed: Kaye Barton MD at 0:35 EDT , Service support ,
[2019-08-25 11:26] LABS: Absolute Lymphocyte Count 2.02 X10^3/uL (0.83-4.51); Absolute Neutrophil Count 3.1 X10^3/uL (2.0-7.7); Basophil# 0.05 X10^3/uL; Basophil% 0.9 % (0-1); Eosinophil# 0.18 X10^3/uL; Eosinophils% 3.1 % (0-5); Hematocrit 40.3 % (37-47); Lymphocyte # 2.02 X10^3/ul (4.0); Lymphocyte % 34.8 % (19-41); Mean Corp Hgb Conc 32.3 g/dL (32-36); Mean Corpuscular Hgb 29.3 pg (27.0-32.0); Mean Corpuscular Volume 90.8 fL (81-99); Mean Platelet Vol. 9.5 fl (6.2-12.0); Monocyte# 0.42 X10^3/uL; Monocyte% 7.2 % (0-10); NRBC Flagged by Analyzer 0 % (0-5); Neutrophil # 3.13 X10^3/uL (2.7-7.7); Neutrophil % 53.8 % (47-70); Platelet Count 300 K/mm3 (150-450); RBC Distribution Width CV 12.1 % (11.6-14.6); RBC Distribution Width SD 40.2 fl (35.1-43.9); Red Blood Count 4.44 M/mm3 (4.2-5.4); White Blood Count 5.8 K/mm3 (4.4-11.0)
[2019-08-25 11:53] LABS: Vitamin B12 390 pg/mL (211-911); Vitamin D,25 Hydroxy 37.1 ng/mL
[2019-08-25 12:10] LABS: ALB/GLOB Ratio 1.1 RATIO (0.9-2.4); AST(SGOT) 16 U/L (15-37); Alanine Aminotransfer ALT/SGPT 23 U/L (13-56); Albumin, Serum 3.7 g/dL (3.2-5.0); Alkaline Phosphatase 84 U/L (45-117); Anion Gap 5 (5-15); BUN 19 mg/dL (7-18); BUN/Creat Ratio 21.1 RATIO (10-20); Calcium,Total 9.3 mg/dL (8.5-10.1); Chloride 110 mmol/L (98-107); Cholesterol 207 mg/dL (200); EST Glomerular Filtration Rate 66 mL/min (>60); Est Glom Filt Rate - Afr Amer 79 mL/min (>60); Ferritin 37 ng/mL (8-252); Globulin 3.4 g/dL (2.2-4.2); Glucose 101 mg/dL (74-106); High Density Lipoprotein 57 mg/dL; Iron 81 ug/dL (50-170); Potassium 4.1 mmol/L (3.5-5.1); Protein, Total 7.1 g/dL (6.4-8.2); Sodium Level 142 mmol/L (136-145); T4 Free Direct 0.91 ng/dL (0.76-1.46); Thyroid Stim Hormone (TSH) 1.61 uIU/mL (0.358-3.74); Triglycerides 186 mg/dL; Very Low Density Lipoprotein 37 mg/dL (5-40)
== END ==
PROVIDERS: PCP Family Medicine; Referring Provider Family Medicine; Visit Provider Family Medicine
DX: R10.11 Right upper quadrant pain (principal); R19.7 Diarrhea, unspecified; M25.561 Pain in right knee; E78.5 Hyperlipidemia, unspecified; R53.83 Other fatigue; D64.9 Anemia, unspecified; E55.9 Vitamin D deficiency, unspecified; D51.9 Vitamin B12 deficiency anemia, unspecified; Z51.81 Encounter for therapeutic drug level monitoring
CPT/HCPCS: 36415; 73564; 76705; 80053; 80061; 82306; 82607; 82728; 83540; 84439; 84443; 84481; 85025

== ENCOUNTER → 2019-11-26 13:50 | Outpatient (CLI) | payer MEDICARE, OTHER, SELFPAY ==
--- NOTE | 2019-11-26 13:52 | BI_ITS ---
MAMMOGRAPHY - BILATERAL SCREENING REASON FOR EXAM: Female, 69 years old. Routine annual screening examination. PERTINENT HISTORY: Sister with breast cancer. Aunt with breast cancer. TECHNIQUE: Digital bilateral breast archie (3D mammographic acquisition) in the CC and MLO projections. 2-D mediolateral oblique (MLO) and craniocaudad (CC) views of both breasts were obtained. CAD: Full Field Digital Mammography with Computer Added Detection was performed. COMPARISON: Comparison is made with prior examination dated January 03, 2018. FINDINGS: Breast Composition: The breasts are heterogeneously dense, which may obscure small masses. There are no dominant masses or suspicious calcifications. No other significant abnormalities are identified. There has been no significant change since the prior study. BI/SCREEN MAMM (CAD) W/ARCHIE BILAT IMPRESSION: Stable bilateral screening mammogram. Yearly follow-up mammogram recommended. (A) ASSESSMENT CATEGORY: BIRADS Category 2: Benign. A letter regarding these results will be sent to the patient by the facility within 30 days. Approximately 10% of breast cancers are not detected by mammography. A normal mammogram should not delay biopsy of a clinically suspicious abnormality. [id number] Electronically Signed: Dmitri Riley, at 14:48 EDT , Service support ,
== END ==
PROVIDERS: PCP Family Medicine; Referring Provider Family Medicine; Visit Provider Family Medicine
DX: Z12.31 Encounter for screening mammogram for malignant neoplasm of breast (principal); Z80.3 Family history of malignant neoplasm of breast
CPT/HCPCS: 77063; 77067

== ENCOUNTER → 2019-12-29 09:55 | Outpatient (CLI) | payer MEDICARE, OTHER, SELFPAY ==
--- NOTE | 2019-12-29 09:57 | RAD_ITS ---
STUDY: UPPER GI WITH AIR-CONTRAST AND SMALL BOWEL FOLLOW-THROUGH REASON FOR EXAM: Female, 69 years old. Right upper quadrant , diarrhea, cramping, 12 inches colon removed in 2016. RADIATION DOSAGE (If Supplied By Facility): CTDIvol = ( ) mGy, DLP = ( ) mGycm. Individualized dose optimization techniques were used for this CT.? FLUOROSCOPY TIME (if supplied): ( 2 Minutes 20 seconds ) minutes/seconds TECHNIQUE: Air-contrast COMPARISON: None. FINDINGS: Tare Weigher film demonstrates an unremarkable bowel gas pattern. 3 hyperdensities in the right lower quadrant likely represent ingested medication. Bony structures show degenerative change. Swallowing was initiated normally. No nasopharyngeal reflux or aspiration. No Zenker''s diverticulum noted on the lateral view. Normal peristaltic activity noted in the esophagus. There was evidence of significant GE reflux. No evidence of a hiatal hernia noted. No suspicious mucosal abnormalities noted within the esophagus, stomach or duodenum. There is a focal diverticulum within the proximal stomach unchanged from a previous CT from 2017. Small bowel follow-through study was then performed. The small bowel loops distend normally. No abnormal wall thickening, ileus or obstruction noted. No abnormal separation of bowel loops to suspect an acute inflammatory process. Transit time to the terminal ileum was less than 105 minutes which is within normal range. RAD/Upper GI/w Small Bowel IMPRESSION: GE reflux Stomach diverticulum, no specific follow-up needed Normal small bowel follow-through Electronically Signed: Travis Suarez MD at 13:26 EDT , Service support ,
== END ==
PROVIDERS: PCP Family Medicine; Referring Provider Nurse Practitioner Adult Health; Visit Provider Nurse Practitioner Adult Health
DX: R11.0 Nausea (principal); R10.11 Right upper quadrant pain; R19.4 Change in bowel habit
CPT/HCPCS: 74246; 74248

== ENCOUNTER → 2020-01-07 10:26 | Outpatient (CLI) | payer MEDICARE, OTHER, SELFPAY ==
--- NOTE | 2020-01-07 10:30 | NM_ITS ---
CLINICAL: 69-year-old female with reported history of abdominal pain and nausea. RADIONUCLIDE HEPATOBILIARY SCINTIGRAPHY COMPARISON: Upper gastrointestinal series report 12/29/2019 FINDINGS: Following the intravenous administration of 5.7 mCi of 99m Tc Mebrofenin, hepatobiliary images reveal: 1. Relatively prompt and homogeneous radiopharmaceutical concentration is noted by a normal sized liver. No parenchymal defects are identified. 2. Gallbladder activity is identified at 20 minutes post radiopharmaceutical administration. 3. Small intestinal tract is observed at 15 minutes following tracer injection. 4. Washout of the radiopharmaceutical by the hepatic parenchyma appears qualitatively normal. Cholecystokinin (0.02 ug/kg) was administered intravenously over a 30-minute period. The post CCK gallbladder ejection fraction calculated at 21 minutes following Cholecystokinin administration was noted to be 54.0 % (normal greater than 35%). During 30 minutes of post CCK imaging, there is no scintigraphic evidence of reflux of the radiotracer into the common hepatic duct or refilling of the gallbladder. FL/Hepatobilliary Img w/Pharm Int IMPRESSION: 1. NORMAL 99m Tc Mebrofenin hepatobiliary imaging examination with Cholecystokinin. A. A gallbladder ejection fraction calculated to be greater than 35% following the administration of Cholecystokinin makes the probability of functional hepatobiliary disease (gallbladder and/or sphincter of Oddi dyskinesia) and/or organic hepatobiliary disease (chronic acalculous cholecystitis and/or cystic duct syndrome) to be low. (Tawana Cooper et al, Journal of Nuclear Medicine 32:1695, 1991). Electronically Signed: Milton Tavares DO at 22:54 EDT Tel , Service support ,
== END ==
PROVIDERS: PCP Family Medicine; Referring Provider Nurse Practitioner Adult Health; Visit Provider Nurse Practitioner Adult Health
DX: R10.11 Right upper quadrant pain (principal); R11.0 Nausea
CPT/HCPCS: 78227; A9537; J2805

== ENCOUNTER → 2020-05-04 | Outpatient (CLI) | payer MEDICARE, OTHER, SELFPAY | END | disposition home or self-care (01) | LOC: LABSPEC 13:30 | PROVIDERS: PCP Family Medicine; Visit Provider Student in an Organized Health Care Education/Training Program | DX: N39.0 Urinary tract infection, site not specified (principal) | CPT/HCPCS: 87086 ==

== ENCOUNTER → 2020-05-12 11:32 | Outpatient (CLI) | payer MEDICARE, OTHER, SELFPAY ==
[2020-05-12 11:49] LABS: Absolute Lymphocyte Count 2.24 X10^3/uL (0.83-4.51); Absolute Neutrophil Count 4.9 X10^3/uL (2.0-7.7); Basophil# 0.06 X10^3/uL; Basophil% 0.8 % (0-1); Eosinophil# 0.17 X10^3/uL; Eosinophils% 2.2 % (0-5); Hemoglobin 14.7 g/dL (12.0-15.0); Lymphocyte # 2.24 X10^3/ul (4.0); Lymphocyte % 28.6 % (19-41); Mean Corp Hgb Conc 32.7 g/dL (32-36); Mean Corpuscular Hgb 31.1 pg (27.0-32.0); Mean Corpuscular Volume 95.3 fL (81-99); Mean Platelet Vol. 9.5 fl (6.2-12.0); Monocyte# 0.48 X10^3/uL; Monocyte% 6.1 % (0-10); NRBC Flagged by Analyzer 0 % (0-5); Neutrophil # 4.86 X10^3/uL (2.7-7.7); Platelet Count 345 K/mm3 (150-450); RBC Distribution Width CV 11.9 % (11.6-14.6); Red Blood Count 4.72 M/mm3 (4.2-5.4); White Blood Count 7.8 K/mm3 (4.4-11.0)
[2020-05-12 12:03] LABS: D-Dimer Quantitative (DVT/PE) 0.39 FEU/ug/m (0.27-0.49)
[2020-05-12 12:49] LABS: AST(SGOT) 24 U/L (15-37); Alanine Aminotransfer ALT/SGPT 33 U/L (13-56); Albumin, Serum 4.2 g/dL (3.2-5.0); Alkaline Phosphatase 93 U/L (45-117); Anion Gap 6 (5-15); BUN 13 mg/dL (7-18); BUN/Creat Ratio 14.7 RATIO (10-20); Chloride 103 mmol/L (98-107); Creatinine, Serum 0.88 mg/dL (0.55-1.02); EST Glomerular Filtration Rate 67 mL/min (>60); Est Glom Filt Rate - Afr Amer 81 mL/min (>60); Ferritin 42 ng/mL (8-252); Glucose 121 mg/dL (74-106); Iron 97 ug/dL (50-170); Magnesium 2.5 mg/dL (1.6-2.6); Potassium 3.6 mmol/L (3.5-5.1); Protein, Total 8.2 g/dL (6.4-8.2); Sodium Level 137 mmol/L (136-145)
[2020-05-12 12:58] LABS: Vitamin B12 420 pg/mL (211-911)
[2020-05-12 15:44] LABS: Hemoglobin A1c 5.3 % (3.8-5.6)
== END ==
PROVIDERS: PCP Family Medicine; Visit Provider Family Medicine
DX: R25.2 Cramp and spasm (principal); M79.606 Pain in leg, unspecified; D64.9 Anemia, unspecified; M79.10 Myalgia, unspecified site; R73.01 Impaired fasting glucose
CPT/HCPCS: 36415; 80053; 82607; 82728; 83036; 83540; 83735; 85025; 85379

== ENCOUNTER → 2020-08-27 14:19 | Outpatient (CLI) | payer MEDICARE, OTHER, SELFPAY ==
[2020-08-27 15:27] LABS: Absolute Lymphocyte Count 1.96 X10^3/uL (0.83-4.51); Absolute Neutrophil Count 3.5 X10^3/uL (2.0-7.7); Basophil# 0.04 X10^3/uL; Basophil% 0.7 % (0-1); Eosinophil# 0.07 X10^3/uL; Eosinophils% 1.2 % (0-5); Hematocrit 42.7 % (37-47); Hemoglobin 14.1 g/dL (12.0-15.0); Lymphocyte # 1.96 X10^3/ul (4.0); Lymphocyte % 33.1 % (19-41); Mean Corpuscular Hgb 30.7 pg (27.0-32.0); Mean Platelet Vol. 9.9 fl (6.2-12.0); Monocyte# 0.38 X10^3/uL; Monocyte% 6.4 % (0-10); NRBC Flagged by Analyzer 0 % (0-5); Neutrophil # 3.45 X10^3/uL (2.7-7.7); Neutrophil % 58.3 % (47-70); Platelet Count 371 K/mm3 (150-450); RBC Distribution Width CV 11.6 % (11.6-14.6); RBC Distribution Width SD 39.2 fl (35.1-43.9); Red Blood Count 4.59 M/mm3 (4.2-5.4); White Blood Count 5.9 K/mm3 (4.4-11.0)
[2020-08-27 15:55] LABS: AST(SGOT) 16 U/L (15-37); Alanine Aminotransfer ALT/SGPT 29 U/L (13-56); Albumin, Serum 3.9 g/dL (3.2-5.0); Alkaline Phosphatase 79 U/L (45-117); Anion Gap 9 (5-15); BUN 15 mg/dL (7-18); BUN/Creat Ratio 17.4 RATIO (10-20); Calcium,Total 9.4 mg/dL (8.5-10.1); Chloride 101 mmol/L (98-107); Creatinine, Serum 0.86 mg/dL (0.55-1.02); EST Glomerular Filtration Rate 69 mL/min (>60); Est Glom Filt Rate - Afr Amer 83 mL/min (>60); Ferritin 81 ng/mL (8-252); Glucose 102 mg/dL (74-106); Lipase 97 U/L (73-393); Magnesium 2.4 mg/dL (1.6-2.6); Potassium 4.3 mmol/L (3.5-5.1); Protein, Total 7.9 g/dL (6.4-8.2); Sodium Level 138 mmol/L (136-145); Vitamin B12 829 pg/mL (211-911)
== END ==
PROVIDERS: PCP Family Medicine; Visit Provider Family Medicine
DX: R25.2 Cramp and spasm (principal); D64.9 Anemia, unspecified; E87.6 Hypokalemia; E83.42 Hypomagnesemia; R10.9 Unspecified abdominal pain; Z51.81 Encounter for therapeutic drug level monitoring
CPT/HCPCS: 36415; 80053; 82607; 82728; 83690; 83735; 85025

== ENCOUNTER → 2020-11-29 14:58 | Outpatient (CLI) | payer MEDICARE, OTHER, SELFPAY ==
--- NOTE | 2020-11-29 15:00 | BI_ITS ---
MAMMOGRAPHY - BILATERAL SCREENING 3-D TOMOSYNTHESIS REASON FOR EXAM: Female, 70 years old. SCREENING PERTINENT HISTORY: No significant family history. TECHNIQUE: 2-D mammograms and 3-D Tomosynthesis of the breast (s) were performed. CAD was performed. COMPARISON: 11/26/2019 FINDINGS: Scattered benign calcifications are seen. No dense spiculated masses or suspicious microcalcifications are identified. No architectural distortion is identified. There is no skin thickening or retraction. Benign calcifications noted particularly on the left There has been no significant change since the prior study of November 2019. BI/SCRN MAMM (CAD)W/ARCHIE BILAT IMPRESSION: No mammographic signs of malignancy. Routine yearly mammograms recommended. ASSESSMENT CATEGORY: FOLLOW UP RECOMMENDATION: Yearly follow up mammogram recommended. (A) Approximately 10% of breast cancers are not detected by mammography. A normal mammogram should not delay biopsy of a clinically suspicious abnormality. Electronically Signed: Roro Bradley, at 12:04 EDT Tel , Service support ,
== END ==
PROVIDERS: PCP Family Medicine; Referring Provider Family Medicine; Visit Provider Family Medicine
DX: Z12.31 Encounter for screening mammogram for malignant neoplasm of breast (principal)
CPT/HCPCS: 77063; 77067

== ENCOUNTER 2021-01-05 19:01 | Emergency (ER) | payer MEDICARE, OTHER, SELFPAY ==
[2021-01-05 19:02] VITALS: BP 142/87; PULSE 78; RESP 16; TEMP 36.3; O2SAT 98; BMI 24.1
[2021-01-05 19:06] VITALS: BP 142/87; PULSE 78; RESP 16; TEMP 36.3; O2SAT 98
--- NOTE | 2021-01-05 19:10 | RAD_ITS ---
STUDY: X-RAY CHEST REASON FOR EXAM: Female, 70 years old. COUGH TECHNIQUE: Single frontal view of the chest. COMPARISON: 02/18/2019 FINDINGS: The lungs are clear and expanded. There is no demonstrated pleural abnormality. Normal size heart. Normal mediastinum and phyllis. Normal visualized pulmonary arteries. Normal visualized aortic arch and descending thoracic aorta. Normal visualized thoracic spine. Normal visualized ribs, clavicles, and shoulders. There is no demonstrated abnormality of the visualized soft tissue structures of the upper abdomen. RAD/Chest 1 View IMPRESSION: No acute cardiopulmonary process. Electronically Signed: Alberto Santamaria MD at 20:14 EDT Tel , Service support ,
--- NOTE | 2021-01-05 20:09 | EDS_ITS ---
HPI History of Present Illness Chief Complaint: Cough Informant: patient Narrative Narrative: 70-year-old female presents to the emergency department with the chief complaint of cough and fatigue. Patient states that 4 days ago she developed a dry hacking cough. Slight sensation of shortness of breath as well as generalized fatigue. She denies any reported fevers notes some nasal congestion. She states she also lost her taste and smell. She has not Covid v accinated. [facility] Medical History (Updated 01/05/21 @ 20:[address] Ladarius Dill DO) GERD (gastroesophageal reflux disease) Home Medications aspirin 81 mg SL DAILY 02/27/19 [History Last Taken Unknown] esomeprazole magnesium 20 mg PO Q48H 02/27/19 [History Last Taken Unknown] lidocaine 1 patch TOPICAL DAILY #10 patch 02/27/19 [Rx Last Taken Unknown] prednisone 40 mg PO DAILY #10 tab 02/27/19 [Rx Last Taken Unknown] colestipol 1 g PO DAILY 01/05/21 [History Last Taken Unknown] dexamethasone [Decadron] 6 mg PO DAILY #6 tab 01/05/21 [Rx Last Taken Unknown] potassium chloride 20 meq PO DAILY 01/05/21 [History Last Taken Unknown] rabeprazole 20 mg PO DAILY 01/05/21 [History Last Taken Unknown] Allergy/AdvReac Type Severity Reaction Status Date / Time procainamide Allergy Unknown Unknown Verified 02/27/19 18:53 ciprofloxacin [From Cipro] Allergy Other Verified 01/05/21 19:07 metronidazole [From Flagyl] Allergy Diarrhea Verified 02/27/19 18:53 Sulfa (Sulfonamide Allergy Anaphylaxis Verified 02/27/19 18:53 Antibiotics) tramadol AdvReac Vomiting Verified 02/27/19 19:17 ALMOST ALL HEART MEDS Allergy Unknown Uncoded 02/27/19 18:53 Social History (Updated 01/05/21 @ 20:[address] Ladarius Dill DO) Smoking Status: Never smoker substance use type: does not use ROS ROS ED Constitutional Constitutional ED: Reports chills; Denies weight loss Eyes Eyes: Denies change in vision or diplopia ENT ENT ED: Reports rhinorrhea and other Details: Loss of taste and smell ; Denies ear pain or sore throat Cardiovascular Cardiovascular: Denies chest pain, orthopnea, palpitations or racing heartbeat Respiratory/Chest Respiratory/Chest: Reports cough and dyspnea; Denies orthopnea Gastrointestinal Gastrointestinal: Denies abdominal pain, diarrhea, nausea or vomiting Genitourinary Genitourinary ED: Denies dysuria, hematuria or urinary frequency Musculoskeletal Musculoskeletal: Reports myalgias; Denies arthralgias Integumentary Denies abscess or rash Neurologic Neurologic: Denies headache(s) or weakness Psychiatric Psychiatric: Denies anxiety, depression, suicidal ideation or suicidal thoughts Endocrine Endocrinology: Denies polydipsia, polyphagia or polyuria Allergic/Immunologic Allergic/Immunologic ED: Denies mouth swelling, tongue swelling or urticaria EXAM Physical Exam Const Vital Signs: 01/05/21 19:02 01/05/21 19:06 Temperature 97.4 F L 97.4 F L Temperature Source Temporal Temporal Pulse Rate 78 78 Respiratory Rate 16 16 Blood Pressure 142/87 H 142/87 H Blood Pressure Mean 105 105 Pulse Ox 98 98 Oxygen Delivery Method Room Air Room Air Positive well nourished and well developed General Appearance ED: well developed HEENT Reports normocephalic, head/scalp atraumatic and moist mucous membranes Eyes PERRL and EOMs intact bilaterally Neck no lymphadenopathy, supple and no JVD Resp normal respiratory effort and clear to auscultation bilaterally Resp Narrative: Dry cough Cardio regular rate, regular rhythm and no murmurs GI normal to inspection, nondistended, normoactive bowel sounds and non-tender Palpation: soft Back/Spine no CVA tenderness and normal ROM Extremity normal to inspection General Extremety ED: Negative for edema General Extremity: Negative for edema Neuro oriented x3 and CN's II-XII intact bilaterally Sensorium / Orientation: alert Motor Exam: strength 5/5 throughout Psych mental status grossly normal Mood & Affect: Negative for depressed or tearful Skin no rashes or lesions noted and no wounds MDM MDM MDM Narrative Medical decision making narrative: Patient's COVID-19 test was positive. My interpretation of the chest x-ray is no focal infiltrate. Patient's vital signs are normal she is 98% on room air. She is otherwise well-appearing. I think the patient can be safely discharged home. She is on day for symptoms. I can prescribe her some Decadron. Recommend self monitoring and quarantine. Return if worsening or concerns Discharge Plan Triage Chief Complaint: Cough ED Provider: Ladarius Dill Dx/Rx/DC Orders Clinical Impression: COVID-19 Instructions: Coronavirus Disease 2019 (COVID-19): Caring for Yourself or Others Prescriptions: New dexamethasone [Decadron] 6 mg tablet 6 mg PO DAILY Qty: 6 RF: 0 No Action aspirin 81 MG tablet,delayed release (DR/EC) 81 mg SL DAILY RF: 0 esomeprazole magnesium 20 MG capsule 20 mg PO Q48H RF: 0 prednisone 20 MG tablet 40 mg PO DAILY Qty: 10 RF: 0 lidocaine 1 PATCH patch 1 patch topical DAILY Qty: 10 RF: 0 potassium chloride 10 mEq capsule, extended release 20 meq PO DAILY RF: 0 rabeprazole 20 mg tablet,delayed release (DR/EC) 20 mg PO DAILY RF: 0 colestipol 1 gram tablet 1 g PO DAILY RF: 0 Primary Care Provider: Vivian Payne Referrals: Vivian Payne DO [Primary Care Provider] - As Needed Disposition Disposition: Home, Self Care
[2021-01-05 20:10] VITALS: O2SAT 97
== END 2021-01-05 20:44 | disposition home or self-care (01) ==
LOC: ED 20:17
PROVIDERS: Emergency Provider Emergency Medicine; PCP Family Medicine
DX: U07.1 COVID-19 (principal); K21.9 Gastro-esophageal reflux disease without esophagitis; Z79.82 Long term (current) use of aspirin; Z79.52 Long term (current) use of systemic steroids; Z79.899 Other long term (current) drug therapy
CPT/HCPCS: 71045; 87426; 99282

== ENCOUNTER 2021-01-07 17:05 | Emergency (ER) | payer MEDICARE, OTHER, SELFPAY ==
[2021-01-07 17:07] VITALS: BP 141/66; TEMP 38.8; BMI 23.8
[2021-01-07 18:06] VITALS: RESP 17; O2SAT 97; O2SAT 99
--- NOTE | 2021-01-07 18:06 | EKG12_ITS ---
Test Reason : CONFUSION Blood Pressure : / mmHG Vent. Rate : 068 BPM Atrial Rate : 068 BPM P-R Int : 132 ms QRS Dur : 078 ms QT Int : 406 ms P-R-T Axes : 039 022 048 degrees QTc Int : 431 ms Normal sinus rhythm Nonspecific ST abnormality Abnormal ECG Confirmed by RENETTA HANKS, CHER ([id number]), index editor WILLIAM CASEY ([id number]) on 01/13/2021 1:12:30 PM Referred By: ARMAND/RJ Confirmed By:CHER JACKSON MD
[2021-01-07 18:25] VITALS: O2SAT 99
--- NOTE | 2021-01-07 18:36 | EDS_ITS ---
HPI History of Present Illness Chief Complaint: Confusion Informant: patient and family Onset/Context/Timing Onset: Today Current Severity: Gone Maximum Severity: Severe Narrative Narrative: Patient started having Covid symptoms 1 week ago, she tested positive several days ago, she lives at home by herself. One of her daughters talk to her this morning and she was very confused and sounded very sleepy. The other daughter, who accompanies her today, states then she called her and had the same issue; she was nonsensical, saying 1 or 2 words at a time, almost aphasic and she was very concerned. She sounded very sleepy. Now, she states she is acting normal. It is around 1830 when I evaluate her here. Last seen normal last night at some point, time is not knowing exactly. At this time she has no focal complaints. In the last week her symptoms have consisted of intermittent headache, myalgias, diarrhea, cough, dyspnea with exertion, chest tightness, lo ss of taste and smell. She is healthy except for paroxysmal atrial fibrillation for which she takes aspirin because she is symptomatic every time she goes into atrial fibrillation. She has not felt any of that recently. She has not been vaccinated against COVID-19 prior to this illness. [facility] Medical History (Updated 01/07/21 @ 21:[address] Bryce Dalal MD) GERD (gastroesophageal reflux disease) Paroxysmal atrial fibrillation Home Medications aspirin 81 mg SL DAILY 02/27/19 [History Last Taken Unknown] esomeprazole magnesium 20 mg PO Q48H 02/27/19 [History Last Taken Unknown] dexamethasone [Decadron] 6 mg PO DAILY #6 tab 01/05/21 [Rx Last Taken Unknown] potassium chloride 20 meq PO DAILY 01/05/21 [History Last Taken Unknown] Allergy/AdvReac Type Severity Reaction Status Date / Time procainamide Allergy Unknown Unknown Verified 01/07/21 17:06 ciprofloxacin [From Cipro] Allergy Other Verified 01/07/21 17:06 metronidazole [From Flagyl] Allergy Diarrhea Verified 01/07/21 17:06 Sulfa (Sulfonamide Allergy Anaphylaxis Verified 01/07/21 17:06 Antibiotics) tramadol AdvReac Vomiting Verified 01/07/21 17:06 ALMOST ALL HEART MEDS Allergy Unknown Uncoded 01/07/21 17:06 Social History Smoking Status: Never smoker substance use type: does not use ROS ROS ED Constitutional Constitutional ED: Reports body ache(s), fever(s), headache(s) and malaise; Denies chills Eyes Eyes: Denies change in vision or diplopia ENT ENT ED: Denies rhinorrhea or sore throat Cardiovascular Cardiovascular: Denies chest pain or palpitations Respiratory/Chest Respiratory/Chest: Reports as per HPI, cough and dyspnea on exertion; Denies dyspnea, excessive phlegm production or hemoptysis Gastrointestinal Gastrointestinal: Reports diarrhea; Denies abdominal pain, nausea or vomiting Genitourinary Genitourinary ED: Denies dysuria or hematuria Musculoskeletal Musculoskeletal: Denies back pain or neck pain Integumentary Denies abscess or rash Neurologic Neurologic: Reports headache(s); Denies paresthesias or weakness Psychiatric Psychiatric: Denies anxiety or suicidal thoughts EXAM Physical Exam Const Vital Signs: 01/07/21 17:07 01/07/21 18:06 01/07/21 18:25 Temperature 102 F H Temperature Source Temporal Pulse Rate Respiratory Rate 17 Respiratory Effort Normal Non-Labored Respiratory Depth Normal Respiratory Pattern Normal Blood Pressure 141/66 H Blood Pressure Mean 91 Pulse Ox 97 Oxygen Delivery Method Room Air Room Air 01/07/21 19:00 01/07/21 21:00 Temperature Temperature Source Pulse Rate 63 55 L Respiratory Rate 18 12 Respiratory Effort Respiratory Depth Respiratory Pattern Blood Pressure 127/59 H 109/57 L Blood Pressure Mean 81 74 Pulse Ox 98 95 Oxygen Delivery Method Room Air Room Air Positive well nourished and well developed Constitutional Narrative: Well-appearing, conversive in full sentences General Appearance ED: well developed and NAD HEENT Reports moist mucous membranes normocephalic and atraumatic Eyes PERRL and EOMs intact bilaterally Neck full ROM, No nuchal rigidity, supple and no meningeal signs General: normal visual inspection Resp normal respiratory effort and clear to auscultation bilaterally Cardio regular rate, regular rhythm and no murmurs GI non-tender and non-distended Auscultation: normoactive bowel sounds Palpation: soft Back/Spine no CVA tenderness General Back: other FROM Extremity normal to inspection General Extremety ED: Negative for edema, pulses abnormal or tenderness General Extremity: Negative for edema or pulses abnormal Neuro oriented x3, CN's II-XII intact bilaterally and no sensory deficits noted Sensorium / Orientation: awake and alert Motor Exam: strength 5/5 throughout Skin no rashes or lesions noted and no wounds MDM MDM MDM Narrative Medical decision making narrative: Work-up was obtained including D-dimer which returned within normal limits when corrected for age. Therefore she was sent for CT of the head only, as she did not require CTA of the chest, her oxygen levels are doing well and clinically she is doing well without confusion. We will treat her fever. She does not hypoxic. She is a candidate for monoclonal antibody and fusion, stable for discharge home. I did offer admission, she declined, the daughter states that she will stay with her. Lab Data Attestation: I reviewed the patient's lab results. Labs: Laboratory Results - last 24 hr 01/07/21 01/07/21 01/07/21 19:15 19:15 19:15 WBC 5.3 RBC 4.84 Hgb 14.6 Hct 44.1 MCV 91.1 MCH 30.2 MCHC 33.1 RDW Std Deviation 40.5 RDW Coeff of Tammy 12.0 Plt Count 224 MPV 10.2 Immature Gran % (Auto) 0.400 Neut % (Auto) 73.2 H Lymph % (Auto) 17.5 L Rawlins % (Auto) 8.9 Eos % (Auto) 0.0 Baso % (Auto) 0.0 Absolute Neuts (auto) 3.9 Absolute Lymphs (auto) 0.92 Nucleated RBC % 0 D-Dimer Quant (PE/DVT) 0.66 H* Sodium 138 Potassium 4.0 Chloride 102 Carbon Dioxide 26.0 Anion Gap 10 BUN 18 Creatinine 0.97 Estim Creat Clear Calc 49.80 Est GFR (MDRD) Af Amer 73 Est GFR (MDRD) Non-Af 60 BUN/Creatinine Ratio 18.6 Glucose 101 Calcium 9.0 Total Bilirubin 0.70 AST 45 H ALT 42 Alkaline Phosphatase 59 Troponin I High Sens 16.4 Total Protein 8.1 Albumin 4.0 Globulin 4.1 Albumin/Globulin Ratio 1.0 Radiography Chest X-Ray - ED: 1 View, Read by ED Physician and Chronic Changes Diagnostic Testing: Radiology Impression Chest X-Ray 01/07/21 18:38 IMPRESSION: Subtle patchy opacities in the bilateral lung bases consistent with covid pneumonia. Electronically Signed: Harris Krishna MD at 19:22 EDT Tel , Service support , Brain CT 01/07/21 20:15 IMPRESSION: No acute intracranial findings. Possible acute bilateral maxillary sinusitis. Individualized dose optimization techniques were used for this CT. at 2107 Reported and signed by: Bam Dwyer MD Electronically Signed: Bam Dwyer MD at 21:06 EDT Tel , Service support , EKG Initial EKG: Attestation: I personally reviewed and interpreted this EKG as follows: Interpretation: Sinus Rhythm and No Acute Injury Pattern Discharge Plan Triage Chief Complaint: Confusion ED Provider: Bryce Dalal Dx/Rx/DC Orders Clinical Impression: COVID-19 Instructions: Coronavirus Disease 2019 (COVID-19): Caring for Yourself or Others, ED - COVID Monoclonal AB Infusion ... Prescriptions: No Action aspirin 81 MG tablet,delayed release (DR/EC) 81 mg SL DAILY RF: 0 esomeprazole magnesium 20 MG capsule 20 mg PO Q48H RF: 0 dexamethasone [Decadron] 6 mg tablet 6 mg PO DAILY Qty: 6 RF: 0 potassium chloride 10 mEq capsule, extended release 20 meq PO DAILY RF: 0 Other Ambulatory Orders: COVID: Outpatient Monoclonal Antibody Referral (Routine) Location: None Selected Ordered By: Dr. Bryce Dalal Primary Care Provider: Vivian Payne Referrals: Vivian Payne DO [Primary Care Provider] - As Needed Activity Restrictions/Additional Instructions: You are a candidate for the Covid monoclonal antibody infusion, its goal is to prevent your COVID-19 from getting worse and requiring hospitalization. If you are a candidate you will receive a phone call regarding it. It is performed as an outpatient, not here now.
--- NOTE | 2021-01-07 18:38 | RAD_ITS ---
INDICATION: COVID EXAMINATION/TECHNIQUE: X-RAY - XR Chest 1 View COMPARISON: 01/05/2021. FINDINGS: There are subtle patchy opacities in the bilateral lung bases. Tortuous and calcified thoracic aorta. The heart is not enlarged. No pleural effusion or pneumothorax. Biapical pleural scarring. Degenerative changes of the thoracic spine and shoulders. RAD/Chest 1 View (Portable) IMPRESSION: Subtle patchy opacities in the bilateral lung bases consistent with covid pneumonia. Electronically Signed: Harris Krishna MD at 19:22 EDT Tel , Service support ,
[2021-01-07 19:00] VITALS: BP 127/59; PULSE 63; RESP 18; O2SAT 98
[2021-01-07] MEDS: Acetaminophen 500 MG Tablet 1000 MG PO (19:07)
[2021-01-07 19:26] LABS: Absolute Lymphocyte Count 0.92 X10^3/uL (0.83-4.51); Absolute Neutrophil Count 3.9 X10^3/uL (2.0-7.7); Hematocrit 44.1 % (37-47); Hemoglobin 14.6 g/dL (12.0-15.0); Lymphocyte # 0.92 X10^3/ul (0.83-4.51); Lymphocyte % 17.5 % (19-41); Mean Corp Hgb Conc 33.1 g/dL (32-36); Mean Corpuscular Hgb 30.2 pg (27.0-32.0); Mean Corpuscular Volume 91.1 fL (81-99); Mean Platelet Vol. 10.2 fl (6.2-12.0); Monocyte# 0.47 X10^3/uL; Monocyte% 8.9 % (0-10); NRBC Flagged by Analyzer 0 % (0-5); Neutrophil # 3.85 X10^3/uL (2.7-7.7); Neutrophil % 73.2 % (47-70); Platelet Count 224 K/mm3 (150-450); RBC Distribution Width SD 40.5 fl (35.1-43.9); Red Blood Count 4.84 M/mm3 (4.2-5.4); White Blood Count 5.3 K/mm3 (4.4-11.0)
[2021-01-07 19:54] LABS: D-Dimer Quantitative (DVT/PE) 0.66 FEU/ug/m (0.27-0.49)
--- NOTE | 2021-01-07 20:15 | CT_ITS ---
HISTORY: confusion TECHNIQUE: Multiple axial images were obtained of the brain without intravenous contrast. A radiation dose optimization technique was used for this scan. IV Contrast dosage and agent: None. COMPARISON: None FINDINGS: # of images incl. paperwork: 231 PARANASAL SINUSES AND MASTOID AIR CELLS: Scattered mucoperiosteal disease with probable small fluid levels in the bilateral maxillary sinuses. INTRACRANIAL HEMORRHAGE: None. BRAIN PARENCHYMA: No CT evidence of stroke. No intracranial masses. There is preservation of the ramos/white matter interface. Posterior fossa structures are unremarkable. CSF SPACES: Appropriate for age. There is no hydrocephalus. MASS EFFECT: None. CALVARIUM: Intact. CT/Brain/Head without Contrast IMPRESSION: No acute intracranial findings. Possible acute bilateral maxillary sinusitis. Individualized dose optimization techniques were used for this CT. at 2107 Reported and signed by: Bam Dwyer MD Electronically Signed: Bam Dwyer MD at 21:06 EDT Tel , Service support ,
[2021-01-07 20:21] LABS: AST(SGOT) 45 U/L (15-37); Alanine Aminotransfer ALT/SGPT 42 U/L (13-56); Alkaline Phosphatase 59 U/L (45-117); Anion Gap 10 (5-15); BUN 18 mg/dL (7-18); BUN/Creat Ratio 18.6 RATIO (10-20); Chloride 102 mmol/L (98-107); Creatinine, Serum 0.97 mg/dL (0.55-1.02); EST Glomerular Filtration Rate 60 mL/min (>60); Est Glom Filt Rate - Afr Amer 73 mL/min (>60); Globulin 4.1 g/dL (2.2-4.2); Glucose 101 mg/dL (74-106); Protein, Total 8.1 g/dL (6.4-8.2); Sodium Level 138 mmol/L (136-145); Troponin-I HS 16.4 pg/mL (3.0-53.7)
[2021-01-07 21:00] VITALS: BP 109/57; PULSE 55; RESP 12; O2SAT 95
[2021-01-07 21:56] VITALS: BP 106/53; PULSE 54; RESP 18; O2SAT 95
== END 2021-01-07 21:57 | disposition home or self-care (01) ==
LOC: ED 18:45
PROVIDERS: Emergency Provider Emergency Medicine; PCP Family Medicine
DX: U07.1 COVID-19 (principal); R41.0 Disorientation, unspecified; R19.7 Diarrhea, unspecified; I48.0 Paroxysmal atrial fibrillation; K21.9 Gastro-esophageal reflux disease without esophagitis; Z79.82 Long term (current) use of aspirin; Z79.52 Long term (current) use of systemic steroids; Z79.899 Other long term (current) drug therapy
CPT/HCPCS: 70450; 71045; 80053; 84484; 85025; 85379; 93005; 94760; 99285; A4216

== ENCOUNTER 2021-01-09 13:07 | Emergency (ER) | payer MEDICARE, OTHER, SELFPAY ==
[2021-01-09 13:08] VITALS: BP 119/51; PULSE 77; RESP 20; TEMP 36.9; O2SAT 92; BMI 23.3
[2021-01-09 13:17] VITALS: O2SAT 92
--- NOTE | 2021-01-09 13:29 | EKG12_ITS ---
Test Reason : SOB Blood Pressure : / mmHG Vent. Rate : 062 BPM Atrial Rate : 062 BPM P-R Int : 142 ms QRS Dur : 078 ms QT Int : 418 ms P-R-T Axes : 061 027 047 degrees QTc Int : 424 ms Normal sinus rhythm Nonspecific ST abnormality Abnormal ECG Confirmed by RENETTA HANKS, CHER ([id number]), material expeditor WILLIAM CASEY ([id number]) on 01/13/2021 1:27:23 PM Referred By: Elen Edwards Confirmed By:CHER JACKSON MD
--- NOTE | 2021-01-09 13:30 | RAD_ITS ---
EXAM: XR CHEST, 1 VIEW : 1950 CLINICAL INDICATION: cough TECHNIQUE: Frontal view of the chest. This report was created using [employer] report generation technology. COMPARISON: 01/07/2021 FINDINGS: LUNGS AND PLEURAL SPACES: Unremarkable. No consolidation or edema. No pneumothorax. No effusion. HEART: Unremarkable. Cardiac silhouette not enlarged. MEDIASTINUM: Central airways and mediastinal contour are unremarkable. BONES/JOINTS: Unremarkable. SOFT TISSUES: Unremarkable. RAD/Chest 1 View (Portable) IMPRESSION: No radiographic evidence of acute cardiopulmonary disease. at 1515 Reported and signed by: Braulio Roach MD Electronically Signed: Braulio Roach MD at 15:14 EDT Tel , Service support ,
[2021-01-09 13:58] LABS: Absolute Lymphocyte Count 0.42 X10^3/uL (0.83-4.51); Absolute Neutrophil Count 8.4 X10^3/uL (2.0-7.7); Hematocrit 41.2 % (37-47); Hemoglobin 13.7 g/dL (12.0-15.0); Lymphocyte # 0.42 X10^3/ul (0.83-4.51); Lymphocyte % 4.5 % (19-41); Mean Corp Hgb Conc 33.3 g/dL (32-36); Mean Corpuscular Hgb 30.4 pg (27.0-32.0); Mean Corpuscular Volume 91.4 fL (81-99); Mean Platelet Vol. 9.9 fl (6.2-12.0); Monocyte% 5.4 % (0-10); NRBC Flagged by Analyzer 0 % (0-5); Neutrophil # 8.35 X10^3/uL (2.7-7.7); Neutrophil % 89.6 % (47-70); POSITIVE DIFFERENTIAL YES; Platelet Count 289 K/mm3 (150-450); RBC Distribution Width CV 12.2 % (11.6-14.6); RBC Distribution Width SD 40.7 fl (35.1-43.9); Red Blood Count 4.51 M/mm3 (4.2-5.4); White Blood Count 9.3 K/mm3 (4.4-11.0)
[2021-01-09 14:13] VITALS: O2SAT 93
[2021-01-09 14:14] LABS: ALB/GLOB Ratio 0.9 RATIO (0.9-2.4); AST(SGOT) 31 U/L (15-37); Alanine Aminotransfer ALT/SGPT 36 U/L (13-56); Albumin, Serum 3.5 g/dL (3.2-5.0); Alkaline Phosphatase 51 U/L (45-117); Anion Gap 9 (5-15); BUN 17 mg/dL (7-18); BUN/Creat Ratio 20.1 RATIO (10-20); Calcium,Total 8.4 mg/dL (8.5-10.1); Chloride 105 mmol/L (98-107); Creatinine, Serum 0.85 mg/dL (0.55-1.02); EST Glomerular Filtration Rate 70 mL/min (>60); Est Glom Filt Rate - Afr Amer 85 mL/min (>60); Estimated Creatinine Clearance 56.83 ml/min; Globulin 3.9 g/dL (2.2-4.2); Glucose 105 mg/dL (74-106); Potassium 3.5 mmol/L (3.5-5.1); Protein, Total 7.4 g/dL (6.4-8.2); Sodium Level 136 mmol/L (136-145)
[2021-01-09 14:16] LABS: Differential Comment SCANNED; Differential Indicated SCAN CRITERIA MET; Lactic Acid 2.2 mmol/L (0.4-1.9)
[2021-01-09 14:34] LABS: D-Dimer Quantitative (DVT/PE) 0.55 FEU/ug/m (0.27-0.49)
[2021-01-09 15:07] VITALS: BP 110/57; PULSE 59; RESP 16; O2SAT 92
--- NOTE | 2021-01-09 17:07 | EDS_ITS ---
HPI History of Present Illness Chief Complaint: Shortness of Breath Informant: patient and family Onset/Context/Timing Onset: Days Context: Gradual Onset Current Severity: Mild Maximum Severity: Mild Narrative Narrative: Patient was diagnosed with Covid last week. She is currently on day 8 of her illness. She reports increased shortness of breath today. She is on steroids and has 1 day left of this treatment. On ambulation from triage to the room patient's O2 sat dropped to 88 to 89%. Sitting at rest she is 92 to 95% on room air. Patient has been seen in the ER multiple times with this illness. She was seen 2 days ago secondary to confusion but work-up was unremarkable. Family states yesterday she did really well but today felt more short of breath. [facility] Medical History GERD (gastroesophageal reflux disease) Paroxysmal atrial fibrillation Home Medications aspirin 81 mg SL DAILY 02/27/19 [History Last Taken Unknown] esomeprazole magnesium 20 mg PO Q48H 02/27/19 [History Last Taken Unknown] dexamethasone [Decadron] 6 mg PO DAILY #6 tab 01/05/21 [Rx Last Taken Unknown] potassium chloride 20 meq PO DAILY 01/05/21 [History Last Taken Unknown] azithromycin 250 mg PO DAILY #6 tablet 01/07/21 [Rx Last Taken Unknown] Allergy/AdvReac Type Severity Reaction Status Date / Time procainamide Allergy Unknown Unknown Verified 01/09/21 13:12 ciprofloxacin [From Cipro] Allergy Other Verified 01/09/21 13:12 metronidazole [From Flagyl] Allergy Diarrhea Verified 01/09/21 13:12 Sulfa (Sulfonamide Allergy Anaphylaxis Verified 01/09/21 13:12 Antibiotics) tramadol AdvReac Vomiting Verified 01/09/21 13:12 ALMOST ALL HEART MEDS Allergy Unknown Uncoded 01/09/21 13:12 Social History Smoking Status: Never smoker substance use type: does not use ROS ROS ED Constitutional Constitutional ED: Denies chills Eyes Eyes: Denies change in vision ENT ENT ED: Denies sore throat Cardiovascular Cardiovascular: Denies chest pain Respiratory/Chest Respiratory/Chest: Reports cough and dyspnea Gastrointestinal Gastrointestinal: Denies abdominal pain, diarrhea, nausea or vomiting Genitourinary Genitourinary ED: Denies dysuria Musculoskeletal Musculoskeletal: Denies back pain Integumentary Denies rash Neurologic Neurologic: Denies headache(s) or weakness Psychiatric Psychiatric: Denies anxiety or depression Allergic/Immunologic Allergic/Immunologic ED: Denies urticaria EXAM Physical Exam Const Vital Signs: 01/09/21 13:08 01/09/21 14:13 01/09/21 15:07 Temperature 98.4 F Temperature Source Temporal Pulse Rate 77 59 L Respiratory Rate 20 H 16 Respiratory Effort Short of Breath Respiratory Depth Normal Respiratory Pattern Normal Blood Pressure 119/51 L 110/57 L Blood Pressure Mean 73 74 Pulse Ox 92 92 Oxygen Delivery Method Room Air Room Air Room Air 01/09/21 17:12 Temperature Temperature Source Pulse Rate 72 Respiratory Rate 16 Respiratory Effort Respiratory Depth Respiratory Pattern Blood Pressure 103/95 H Blood Pressure Mean Pulse Ox 94 Oxygen Delivery Method Positive well nourished and well developed General Appearance ED: well developed HEENT Reports normocephalic and head/scalp atraumatic Eyes PERRL and EOMs intact bilaterally Neck supple Chest Wall inspection of chest normal and palpation of chest normal Resp normal respiratory effort and clear to auscultation bilaterally Cardio regular rate and regular rhythm GI normal to inspection, nondistended, normoactive bowel sounds Palpation: soft Extremity normal to inspection Neuro oriented x3 and no sensory deficits noted Sensorium / Orientation: alert Motor Exam: strength 5/5 throughout Psych mental status grossly normal Skin no rashes or lesions noted MDM MDM MDM Narrative Medical decision making narrative: EKG, labs, chest x-ray obtained. Lab Data Attestation: I reviewed the patient's lab results. Labs: Laboratory Results - last 24 hr 01/09/21 01/09/21 01/09/21 13:40 13:40 13:40 WBC 9.3 RBC 4.51 Hgb 13.7 Hct 41.2 MCV 91.4 MCH 30.4 MCHC 33.3 RDW Std Deviation 40.7 RDW Coeff of Tammy 12.2 Plt Count 289 MPV 9.9 Immature Gran % (Auto) 0.500 Neut % (Auto) 89.6 H Lymph % (Auto) 4.[address] % (Auto) 5.4 Eos % (Auto) 0.0 Baso % (Auto) 0.0 Absolute Neuts (auto) 8.4 H Absolute Lymphs (auto) 0.42 L Nucleated RBC % 0 Differential Comment SCANNED D-Dimer Quant (PE/DVT) Sodium 136 Potassium 3.5 Chloride 105 Carbon Dioxide 22.0 Anion Gap 9 BUN 17 Creatinine 0.85 Estim Creat Clear Calc 56.83 Est GFR (MDRD) Af Amer 85 Est GFR (MDRD) Non-Af 70 BUN/Creatinine Ratio 20.1 H Glucose 105 Lactic Acid 2.2 H* Calcium 8.4 L Total Bilirubin 0.60 AST 31 ALT 36 Alkaline Phosphatase 51 Total Protein 7.4 Albumin 3.5 Globulin 3.9 Albumin/Globulin Ratio 0.9 01/09/21 14:02 WBC RBC Hgb Hct MCV MCH MCHC RDW Std Deviation RDW Coeff of Tammy Plt Count MPV Immature Gran % (Auto) Neut % (Auto) Lymph % (Auto) [place] % (Auto) Eos % (Auto) Baso % (Auto) Absolute Neuts (auto) Absolute Lymphs (auto) Nucleated RBC % Differential Comment D-Dimer Quant (PE/DVT) 0.55 H* Sodium Potassium Chloride Carbon Dioxide Anion Gap BUN Creatinine Estim Creat Clear Calc Est GFR (MDRD) Af Amer Est GFR (MDRD) Non-Af BUN/Creatinine Ratio Glucose Lactic Acid Calcium Total Bilirubin AST ALT Alkaline Phosphatase Total Protein Albumin Globulin Albumin/Globulin Ratio Radiography Chest X-Ray - ED: 1 View, Read by ED Physician, Normal, Heart, Lungs and Mediastinum Diagnostic Testing: Radiology Impression Chest X-Ray 01/09/21 13:30 IMPRESSION: No radiographic evidence of acute cardiopulmonary disease. at 1515 Reported and signed by: Braulio Roach MD Electronically Signed: Braulio Roach MD at 15:14 EDT Tel , Service support , EKG Initial EKG: Attestation: I personally reviewed and interpreted this EKG as follows: Interpretation: Sinus Rhythm (Sinus at 62. No acute ST change.) Treatment and Re-Evaluation Comments:: Lab work is unremarkable. Patient's O2 sat is stable sitting in the room. I did get her up and walker in the room and her O2 sat remained 92 to 95%. Patient is hoping to get monoclonal antibody therapy. I did advise that if she is admitted to the hospital she would not be a candidate for this. At this time she does feel comfortable going home. She is a pulse ox meter to watch her oxygen. She is expecting a call tomorrow to be scheduled for the monoclonal antibodies. Discharge Plan Triage Chief Complaint: Shortness of Breath ED Provider: Jerrica De Los Santos Dx/Rx/DC Orders Clinical Impression: COVID-19 Instructions: Coronavirus Disease 2019 (COVID-19): Caring for Yourself or Others Prescriptions: No Action aspirin 81 MG tablet,delayed release (DR/EC) 81 mg SL DAILY RF: 0 esomeprazole magnesium 20 MG capsule 20 mg PO Q48H RF: 0 dexamethasone [Decadron] 6 mg tablet 6 mg PO DAILY Qty: 6 RF: 0 potassium chloride 10 mEq capsule, extended release 20 meq PO DAILY RF: 0 azithromycin 250 mg tablet 250 mg PO DAILY Qty: 6 RF: 0 Primary Care Provider: Vivian Payne Referrals: Vivian Payne DO [Primary Care Provider] - Disposition Disposition: Home, Self Care Discharge Date/Time: 01/09/21 17:23
[2021-01-09 17:12] VITALS: BP 103/95; PULSE 72; RESP 16; O2SAT 94
[2021-01-09 17:49] LABS: Reflex Lactate? Y
== END 2021-01-09 17:23 | disposition home or self-care (01) ==
PROVIDERS: Emergency Provider Emergency Medicine; PCP Family Medicine
DX: U07.1 COVID-19 (principal); I48.0 Paroxysmal atrial fibrillation; K21.9 Gastro-esophageal reflux disease without esophagitis; Z79.82 Long term (current) use of aspirin; Z79.52 Long term (current) use of systemic steroids
CPT/HCPCS: 71045; 80053; 83605; 85025; 85379; 87040; 93005; 99285; A4216

== ENCOUNTER 2021-01-10 14:28 | Outpatient (CLI) | payer MEDICARE, OTHER, SELFPAY ==
[2021-01-10 10:34] VITALS: BMI 23.3
[2021-01-10 14:54] VITALS: BP 104/59; PULSE 59; RESP 18; TEMP 37.1; O2SAT 93; BMI 23.3
[2021-01-10] MEDS: 0.9% Saline Lock 10 ML Syringe IV ×2 (15:00→15:24)
[2021-01-10 15:02] VITALS: BP 111/61; PULSE 59; RESP 18; TEMP 36.9; O2SAT 93
[2021-01-10 15:24] VITALS: BP 108/64; PULSE 52; RESP 18; TEMP 37; O2SAT 93
[2021-01-10 15:54] VITALS: BP 104/63; PULSE 51; RESP 18; TEMP 36.7; O2SAT 93
[2021-01-10 16:24] VITALS: BP 117/52; PULSE 54; RESP 18; TEMP 36.9; O2SAT 93
[2021-01-10 16:31] VITALS: BP 117/52; PULSE 54; RESP 18; TEMP 36.9; O2SAT 93
--- NOTE | 2021-01-14 14:39 | CASEMGMT ---
RN CM Follow-up: Referral received from triple valve tester. TC made to pt who states it remains hard to breathe but notes her PO to be 92-93% on RA with the lowest at 90% after activity. Pt states she tries to do things around the house but then has to sit and rest intermittently. No conversational dyspnea noted during the conversation. An occasional dry cough noted. Pt states she lives alone and her daughter visits her daily to assist her as needed. Pt states she has been in contact with PCP Dr. Payne yesterday and new prescriptions were obtained (Ivermectin and methylprednisone) which she has started to take today. Pt states she is anxious about having COVID and concerned about not recovering. Pt describes her mentation as being foggy and having difficulty completing tasks such paying bills that she has always been able to do independently. Pt states her daughter has been assisting her with these tasks. This RN CM reassured pt that these are common symptoms experienced by pt's with COVID-19. Reassured pt that if her breathing worsens that she can present back to [facility] or call her PCP. Pt expressed understanding. Pt denied any further needs at this time. This RN CM will remain available if any additional needs are identified. Destiny Shaw, RN CM
== END 2021-01-10 16:35 | disposition home or self-care (01) ==
LOC: ICUOUT 14:29 → ICU 14:30
PROVIDERS: PCP Family Medicine; Referring Provider Nurse Practitioner Acute Care; Visit Provider Nurse Practitioner Acute Care
DX: Z23 Encounter for immunization (principal); U07.1 COVID-19
CPT/HCPCS: J7050; M0243; A4216; Q0244

== ENCOUNTER 2021-01-17 18:47 | Inpatient (IN) | payer MEDICARE, OTHER, SELFPAY ==
[2021-01-17] VITALS (12 sets, daily range): BP systolic 95–120; BP diastolic 63–84; PULSE 70–160; RESP 11–20; TEMP 36.3–36.6; O2SAT 95–98; BMI 22.6
--- NOTE | 2021-01-17 18:51 | EKG12_ITS ---
Test Reason : CP/AFIB Blood Pressure : / mmHG Vent. Rate : 160 BPM Atrial Rate : 320 BPM P-R Int : 000 ms QRS Dur : 072 ms QT Int : 306 ms P-R-T Axes : 000 026 135 degrees QTc Int : 499 ms Atrial flutter Nonspecific ST and T wave abnormality Abnormal ECG Confirmed by RENETTA HANKS, CHER ([id number]), department editor WILLIAM CASEY ([id number]) on 01/19/2021 10:40:04 AM Referred By: CRESCENCIO Confirmed By:CHER JACKSON MD
--- NOTE | 2021-01-17 19:17 | EDS_ITS ---
HPI History of Present Illness Chief Complaint: Palpitations Informant: patient Onset/Context/Timing Onset: Today Activity at onset: sudden Timing: Continuous Quality: Positive for Aching Current Severity: Mild Maximum Severity: Mild Associated Symptoms: Positive for Dyspnea; Negative for Nausea and Vomiting Narrative Narrative: 70-year-old female history of A. fib 2 prior cardiac ablations last o ne done at [facility] [place] in 2003. Just recently got over Covid after getting the monoclonal antibody infusions. Today she went into A. fib. At home. She took 4 baby aspirin. She took Cardizem 60 mg 3 different times and could not control her rate and was told by her primary care physician to come in. She also is complaining of some exertional dyspnea and chest discomfort the last several weeks since she is had a Covid. Denies any hemoptysis. No history of DVT or PE. No history of coronary disease. Prior Similar Symptoms: Yes Recent Illness/Hospitalization: No PFSH PFSH Medical History GERD (gastroesophageal reflux disease) Paroxysmal atrial fibrillation Home Medications aspirin 81 mg SUBLINGUAL DAILY 02/27/19 [History Last Taken 01/08/21] esomeprazole magnesium 20 mg PO Q48H 02/27/19 [History Last Taken 01/10/21] dexamethasone [Decadron] 6 mg PO DAILY #6 tab 01/05/21 [Rx Last Taken 01/10/21] potassium chloride 20 meq PO DAILY 01/05/21 [History Last Taken 01/10/21] azithromycin 250 mg PO DAILY #6 tablet 01/07/21 [Rx Last Taken 01/10/21] Allergy/AdvReac Type Severity Reaction Status Date / Time procainamide Allergy Unknown Unknown Verified 01/17/21 18:48 ciprofloxacin [From Cipro] Allergy Other Verified 01/17/21 18:48 metronidazole [From Flagyl] Allergy Diarrhea Verified 01/17/21 18:48 Sulfa (Sulfonamide Allergy Anaphylaxis Verified 01/17/21 18:48 Antibiotics) tramadol AdvReac Vomiting Verified 01/17/21 18:48 ALMOST ALL HEART MEDS Allergy Unknown Uncoded 01/17/21 18:48 Social History Smoking Status: Never smoker substance use type: does not use ROS ROS ED ROS Narrative Denies recent illness. Has had recent dyspnea and chest pain post Covid. Review of Systems ROS Unobtainable: Denies due to encephalopathy Constitutional Constitutional ED: Denies chills or fever(s) Eyes Eyes: Denies none ENT ENT ED: Denies ear pain or sore throat Cardiovascular Cardiovascular: Reports chest pain, palpitations and racing heartbeat; Denies as per HPI Respiratory/Chest Respiratory/Chest: Reports dyspnea Gastrointestinal Gastrointestinal: Denies abdominal pain, diarrhea, nausea or vomiting Genitourinary Genitourinary ED: Denies dysuria Integumentary Denies rash Neurologic Neurologic: Denies headache(s) Psychiatric Psychiatric: Denies depression Endocrine Endocrinology: Denies polyuria Hematologic/Lymphatic Hematologic/Lymphatic: Denies easy bruising Allergic/Immunologic Allergic/Immunologic ED: Denies urticaria EXAM Physical Exam Narrative Exam Narrative: Older female A. fib RVR on the monitor rate of 160. Blood pressure 105/77. HEENT exam unremarkable. Neck nontender no lymphadenopathy. Lungs clear to auscultation. Heart tachycardic 160 A. fib flutter on the monitor. Abdomen soft nontender. Moving all 4 extremities. Calves nontender no edema no cords. Neurologically she is awake alert. Const Vital Signs: 01/17/21 18:48 01/17/21 19:55 01/17/21 20:05 Temperature 97.3 F L 97.3 F L Temperature Source Temporal Temporal Pulse Rate 160 H 157 H 122 H Respiratory Rate 16 16 Respiratory Effort Short of Breath Respiratory Pattern Normal Blood Pressure 105/77 103/82 H Blood Pressure Mean 86 89 Pulse Ox 97 97 Oxygen Delivery Method Room Air Room Air Oxygen Flow Rate (L/min) 01/17/21 20:44 01/17/21 21:24 Temperature Temperature Source Pulse Rate 157 H 154 H Respiratory Rate 17 20 H Respiratory Effort Respiratory Pattern Blood Pressure 113/72 95/75 Blood Pressure Mean 85 81 Pulse Ox 97 98 Oxygen Delivery Method Nasal Cannula Oxygen Flow Rate (L/min) 2 2 Positive well nourished and well developed; Negative for unkempt General Appearance ED: well developed; Negative for unkempt or pallor HEENT Reports moist mucous membranes normocephalic and atraumatic Eyes PERRL and EOMs intact bilaterally Neck no lymphadenopathy, supple and no JVD General: Negative for tenderness Chest Wall inspection of chest normal and palpation of chest normal Resp normal respiratory effort and clear to auscultation bilaterally Effort and Inspection: respiratory distress Cardio Negative for regular rate or regular rhythm Rhythm: abnormal rhythm GI normal to inspection, nondistended, normoactive bowel sounds, soft to palpation, non-tender and non-distended Back/Spine no CVA tenderness and no thoracic nor lumbar tenderness Extremity normal to inspection General Extremety ED: Negative for edema or tenderness General Extremity: Negative for edema Neuro oriented x3 Sensorium / Orientation: awake, alert, oriented to person, oriented to place and oriented to time Motor Exam: strength 5/5 throughout Psych mental status grossly normal Appearance: Negative for unkempt Skin no rashes or lesions noted and no wounds General Skin Exam: Negative for jaundice or pallor MDM MDM MDM Narrative Medical decision making narrative: 70-year-old female recurrent A. fib RVR and unable to control her rate at home in spite of Cardizem 60 mg 3 different times a day. Was started on Cardizem drip and admitted. She undergo cardiac work-up. I am doing a D-dimer due to her recent Covid and recent exertional dyspnea before she went back in A. fib. Repeat exam at 938 patient is doing well but her heart rate is 155. Initial bolus her heart rate came down to 110 but is progressively gone back up. She is on a Cardizem drip. The hospitalist Dr. Jay Macias is evaluate the patient in the room at this time. She will be admitted to the PCU. Lab Data Attestation: I reviewed the patient's lab results. Lab results narrative: CBC shows a white count 1.5. Hemoglobin 14. D-dimer is elevated 1.5. Due to the elevated D-dimer her chest pain, and for the recent Covid I am obtaining a CTA of her chest. Her electrolytes unremarkable gap 11. Normal creatinine. Glucose 107. Troponin XX 2 and normal. Labs: Laboratory Results - last 24 hr 01/17/21 01/17/21 01/17/21 19:50 20:38 20:38 WBC 11.5 H RBC 4.67 Hgb 14.2 Hct 42.1 MCV 90.1 MCH 30.4 MCHC 33.7 RDW Std Deviation 39.1 RDW Coeff of Tammy 11.9 Plt Count 629 H MPV 9.0 Immature Gran % (Auto) 0.700 Neut % (Auto) 70.6 H Lymph % (Auto) 20.9 [place] % (Auto) 7.3 Eos % (Auto) 0.2 Baso % (Auto) 0.3 Absolute Neuts (auto) 8.1 H Absolute Lymphs (auto) 2.41 Nucleated RBC % 0 D-Dimer Quant (PE/DVT) 1.50 H* Sodium 137 Potassium 4.0 Chloride 104 Carbon Dioxide 22.0 Anion Gap 11 BUN 23 H Creatinine 0.82 Estim Creat Clear Calc 58.91 Est GFR (MDRD) Af Amer 89 Est GFR (MDRD) Non-Af 73 BUN/Creatinine Ratio 28.2 H Glucose 107 H Calcium 9.5 Troponin I High Sens 22.4 Radiography Chest X-Ray - ED: 1 View, Read by ED Physician, Read by Radiologist, Heart, Lungs, Mediastinum, Bony Structures, Right Infiltrate and Left Infiltrate Diagnostic Testing: Radiology Impression Chest X-Ray 01/17/21 20:02 IMPRESSION: Bibasilar airspace opacities consistent with Covid pneumonia. Electronically Signed: Harris Krishna MD at 20:52 EDT Tel , Service support , Portable single view chest x-ray shows infiltrates more so on the right than the left consistent with recent Covid diagnosis. EKG Initial EKG: Attestation: I personally reviewed and interpreted this EKG as follows: Interpretation: Atrial Fibrillation Comments: Acute atrial flutter rate of [address] depression in V3 through V6 most likely rate dependent. Prior EKG tracings: not available for review Critical Care Time Critical Care Time: Yes Critical care time (excluding procedures): 30-74 minutes, Including time spent:, Discussing w/Patient &/or Family/Concrete [employer]ence [employer], Discussing w/Consultants, Arranging Admission or Transfer, Performing Direct Patient Care at Bedside and - (32 min) Discharge Plan Triage Chief Complaint: Palpitations ED Provider: Carlos Mejia Dx/Rx/DC Orders Clinical Impression: COVID-19, Atrial fibrillation with rapid ventricular response Prescriptions: No Action aspirin 81 MG tablet,delayed release (DR/EC) 81 mg sublingual DAILY RF: 0 esomeprazole magnesium 20 MG capsule 20 mg PO Q48H RF: 0 dexamethasone [Decadron] 6 mg tablet 6 mg PO DAILY Qty: 6 RF: 0 potassium chloride 10 mEq capsule, extended release 20 meq PO DAILY RF: 0 azithromycin 250 mg tablet 250 mg PO DAILY Qty: 6 RF: 0 Primary Care Provider: Vivian Payne Referrals: Vivian Payne DO [Primary Care Provider] - Disposition Disposition: Acute Care [facility]
[2021-01-17] MEDS: dilTIAZem 25 MG/5 ML Vial 20 MG IV BOLUS (19:54)
--- NOTE | 2021-01-17 20:02 | RAD_ITS ---
INDICATION: chest pain EXAMINATION/TECHNIQUE: X-RAY - XR Chest 1 View COMPARISON: None. FINDINGS: Bibasilar airspace opacities. Tortuous and calcified thoracic aorta. The heart is not enlarged. No pleural effusion or pneumothorax. No acute osseous abnormalities. RAD/Chest 1 View (Portable) IMPRESSION: Bibasilar airspace opacities consistent with Covid pneumonia. Electronically Signed: Harris Krishna MD at 20:52 EDT Tel , Service support ,
[2021-01-17 21:11] LABS: Absolute Lymphocyte Count 2.41 X10^3/uL (0.83-4.51); Absolute Neutrophil Count 8.1 X10^3/uL (2.0-7.7); Basophil# 0.04 X10^3/uL; Basophil% 0.3 % (0-1); Eosinophil# 0.02 X10^3/uL; Eosinophils% 0.2 % (0-5); Hematocrit 42.1 % (37-47); Hemoglobin 14.2 g/dL (12.0-15.0); Lymphocyte # 2.41 X10^3/ul (0.83-4.51); Lymphocyte % 20.9 % (19-41); Mean Corp Hgb Conc 33.7 g/dL (32-36); Mean Corpuscular Hgb 30.4 pg (27.0-32.0); Mean Corpuscular Volume 90.1 fL (81-99); Monocyte# 0.84 X10^3/uL; Monocyte% 7.3 % (0-10); NRBC Flagged by Analyzer 0 % (0-5); Neutrophil # 8.12 X10^3/uL (2.7-7.7); Neutrophil % 70.6 % (47-70); Platelet Count 629 K/mm3 (150-450); RBC Distribution Width CV 11.9 % (11.6-14.6); RBC Distribution Width SD 39.1 fl (35.1-43.9); Red Blood Count 4.67 M/mm3 (4.2-5.4); White Blood Count 11.5 K/mm3 (4.4-11.0)
[2021-01-17 21:19] LABS: Anion Gap 11 (5-15); BUN 23 mg/dL (7-18); BUN/Creat Ratio 28.2 RATIO (10-20); Calcium,Total 9.5 mg/dL (8.5-10.1); Chloride 104 mmol/L (98-107); Creatinine, Serum 0.82 mg/dL (0.55-1.02); EST Glomerular Filtration Rate 73 mL/min (>60); Est Glom Filt Rate - Afr Amer 89 mL/min (>60); Estimated Creatinine Clearance 58.91 ml/min; Glucose 107 mg/dL (74-106); Sodium Level 137 mmol/L (136-145); Troponin-I HS 22.4 pg/mL (3.0-53.7)
--- NOTE | 2021-01-17 21:43 | PCM.HP.STD ---
HPI - General HPI Narrative HILARY ULRICH, is a 70 F who presents to the emergency room by advice of her primary care physician due to rapid heart rate. Pat patient has a significant past medical history of atrial fibrillation with rapid ventricular response for which she has undergone 2 previous cardiac ablations. The patient is 16 days after testing positive for Covid 19 virus and has been treated with steroids and monoclonal antibody infusion. Patient did not receive a COVID-19 vaccine prior to her infection. At 7:00 this evening the patient started having a rapid heart rate of 150 bpm or more but denied any chest pain or shortness of breath. Despite taking 4 aspirin and 3 separate doses of diltiazem 60 mg the patient has failed to get her rate down at home. In the emergency room a Cardizem drip was initiated. Initial laboratory studies are unremarkable however D-dimer was slightly elevated therefore a CT scan of the chest was ordered and is pending at the time of my evaluation. She will be admitted to the progressive care unit continued on Cardizem drip and monitored for cardioversion. She has seen Dr. Jay Pinzon in the past and he will be consulted for management in the morning. [facility] Medical History GERD (gastroesophageal reflux disease) Paroxysmal atrial fibrillation Home Medications aspirin 81 mg SUBLINGUAL DAILY 02/27/19 [History Last Taken 01/08/21] esomeprazole magnesium 20 mg PO Q48H 02/27/19 [History Last Taken 01/10/21] dexamethasone [Decadron] 6 mg PO DAILY #6 tab 01/05/21 [Rx Last Taken 01/10/21] potassium chloride 20 meq PO DAILY 01/05/21 [History Last Taken 01/10/21] azithromycin 250 mg PO DAILY #6 tablet 01/07/21 [Rx Last Taken 01/10/21] Allergy/AdvReac Type Severity Reaction Status Date / Time procainamide Allergy Unknown Unknown Verified 01/17/21 18:48 ciprofloxacin [From Cipro] Allergy Other Verified 01/17/21 18:48 metronidazole [From Flagyl] Allergy Diarrhea Verified 01/17/21 18:48 Sulfa (Sulfonamide Allergy Anaphylaxis Verified 01/17/21 18:48 Antibiotics) tramadol AdvReac Vomiting Verified 01/17/21 18:48 ALMOST ALL HEART MEDS Allergy Unknown Uncoded 01/17/21 18:48 Social History Smoking Status: Never smoker substance use type: does not use ROS Constitutional Constitutional: Denies chills or fever(s) Eyes Eyes: Denies change in vision ENT HEENT: Denies abnormal hearing Cardiovascular Cardiovascular: Reports palpitations; Denies chest pain, edema or syncope Respiratory/Chest Respiratory/Chest: Denies cough Gastrointestinal Gastrointestinal: Denies abdominal pain Genitourinary Genitourinary: Denies dysuria Musculoskeletal Musculoskeletal: Denies back pain Integumentary Integumentary: Denies jaundice Neurologic Neurologic: Denies abnormal gait Psychiatric Psychiatric: Denies anxiety Endocrine Endocrinology: Denies change in body appearance Vital Signs Vital Signs Vital Signs: 01/17/21 18:48 01/17/21 19:55 01/17/21 20:05 Temperature 97.3 F L 97.3 F L Temperature Source Temporal Temporal Pulse Rate 160 H 157 H 122 H Respiratory Rate 16 16 Respiratory Effort Short of Breath Respiratory Pattern Normal Blood Pressure 105/77 103/82 H Blood Pressure Mean 86 89 Pulse Ox 97 97 Oxygen Delivery Method Room Air Room Air Oxygen Flow Rate (L/min) 01/17/21 20:44 01/17/21 21:24 Temperature Temperature Source Pulse Rate 157 H 154 H Respiratory Rate 17 20 H Respiratory Effort Respiratory Pattern Blood Pressure 113/72 95/75 Blood Pressure Mean 85 81 Pulse Ox 97 98 Oxygen Delivery Method Nasal Cannula Oxygen Flow Rate (L/min) 2 2 Weight Weight: 140 lb 10.354 oz Body Mass Index (BMI) 22.6 Physical Exam Const alert, oriented x3 and no apparent distress General Appearance: cooperative and well developed HEENT normocephalic and head/scalp atraumatic Eyes PERRL and EOMs intact bilaterally Neck supple Resp normal respiratory effort and clear to auscultation bilaterally Cardio S1 normal heart sound, S2 normal heart sound, no murmurs, no rub and no gallops Rate: tachycardic GI normal to inspection, nondistended, normoactive bowel sounds Extremity normal capillary refill Skin Rashes: no rashes Neuro CN's II-XII intact bilaterally Psych thought process normal, cooperative and affect normal Appearance: appropriate Results Lab / Micro Data Result Diagrams: 01/17/21 20:38 01/17/21 20:38 Labs: Laboratory Results - last 24 hr 01/17/21 19:50: D-Dimer Quant (PE/DVT) 1.50 H* 01/17/21 20:38: WBC 11.5 H, RBC 4.67, Hgb 14.2, Hct 42.1, MCV 90.1, MCH 30.4, MCHC 33.7, RDW Std Deviation 39.1, RDW Coeff of Tammy 11.9, Plt Count 629 H, MPV 9.0, Immature Gran % (Auto) 0.700, Neut % (Auto) 70.6 H, Lymph % (Auto) 20.9, [place] % (Auto) 7.3, Eos % (Auto) 0.2, Baso % (Auto) 0.3, Absolute Neuts (auto) 8.1 H, Absolute Lymphs (auto) 2.41, Nucleated RBC % 0 01/17/21 20:38: Sodium 137, Potassium 4.0, Chloride 104, Carbon Dioxide 22.0, Anion Gap 11, BUN 23 H, Creatinine 0.82, Estim Creat Clear Calc 58.91, Est GFR (MDRD) Af Amer 89, Est GFR (MDRD) Non-Af 73, BUN/Creatinine Ratio 28.2 H, Glucose 107 H, Calcium 9.5, Troponin I High Sens 22.4 Radiology Impression Chest X-Ray 01/17/21 20:02 IMPRESSION: Bibasilar airspace opacities consistent with Covid pneumonia. Electronically Signed: Harris Krishna MD at 20:52 EDT Tel , Service support , Assessment & Plan Assessment/Plan (1) Atrial fibrillation with rapid ventricular response: PLAN: 1. Atrial fibrillation with RVR?admit patient to progressive care unit, low molecular weight heparin 1 mg/kg subcu every 12 hours, continue Cardizem drip, consult Dr. Jay Pinzon in the morning, make patient n.p.o. at midnight considering she may be a candidate for cardioversion 2. Recent COVID-19 infection patient is status post the time of quarantine 3. DVT prophylaxis?patient is on low molecular weight heparin for above Charges/Coding Visit Charges Inpatient E&M: 80762 Init Hosp L2
--- NOTE | 2021-01-17 23:15 | EKG12_ITS ---
Test Reason : RHYTHM CONVERSION Blood Pressure : / mmHG Vent. Rate : 069 BPM Atrial Rate : 071 BPM P-R Int : 000 ms QRS Dur : 084 ms QT Int : 412 ms P-R-T Axes : 000 020 -64 degrees QTc Int : 441 ms Accelerated Junctional rhythm Nonspecific ST and T wave abnormality Abnormal ECG Confirmed by RENETAT HANKS, CHER ([id number]), communications editor WILLIAM CASEY ([id number]) on 01/19/2021 10:47:44 AM Referred By: ESSIE Confirmed By:CHER JACKSON MD
[2021-01-18] VITALS (17 sets, daily range): BP systolic 94–125; BP diastolic 58–71; PULSE 52–75; RESP 13–20; TEMP 36.6; O2SAT 93–97
[2021-01-18 03:32] LABS: Absolute Lymphocyte Count 2.09 X10^3/uL (0.83-4.51); Absolute Neutrophil Count 6.7 X10^3/uL (2.0-7.7); Basophil# 0.04 X10^3/uL; Basophil% 0.4 % (0-1); Eosinophil# 0.03 X10^3/uL; Eosinophils% 0.3 % (0-5); Hematocrit 42.7 % (37-47); Hemoglobin 13.8 g/dL (12.0-15.0); Lymphocyte # 2.09 X10^3/ul (0.83-4.51); Mean Corp Hgb Conc 32.3 g/dL (32-36); Mean Corpuscular Hgb 29.8 pg (27.0-32.0); Mean Corpuscular Volume 92.2 fL (81-99); Mean Platelet Vol. 8.8 fl (6.2-12.0); Monocyte# 0.61 X10^3/uL; Monocyte% 6.4 % (0-10); NRBC Flagged by Analyzer 0 % (0-5); Neutrophil # 6.68 X10^3/uL (2.7-7.7); Neutrophil % 70.5 % (47-70); Platelet Count 541 K/mm3 (150-450); RBC Distribution Width CV 12.1 % (11.6-14.6); RBC Distribution Width SD 40.9 fl (35.1-43.9); Red Blood Count 4.63 M/mm3 (4.2-5.4); White Blood Count 9.5 K/mm3 (4.4-11.0)
[2021-01-18 03:35] LABS: Troponin-I HS 26.5 pg/mL (3.0-53.7)
[2021-01-18 03:39] LABS: International Normalized Ratio 1.1; Prothrombin Time (Protime)PT. 13.4 SECONDS (11.7-14.9)
[2021-01-18 04:30] LABS: Anion Gap 11 (5-15); BUN 21 mg/dL (7-18); Calcium,Total 8.8 mg/dL (8.5-10.1); Chloride 101 mmol/L (98-107); Creatinine, Serum 0.84 mg/dL (0.55-1.02); EST Glomerular Filtration Rate 71 mL/min (>60); Est Glom Filt Rate - Afr Amer 86 mL/min (>60); Estimated Creatinine Clearance 57.51 ml/min; Glucose 114 mg/dL (74-106); Magnesium 2.5 mg/dL (1.6-2.6); Potassium 4.1 mmol/L (3.5-5.1); Sodium Level 134 mmol/L (136-145)
[2021-01-18] MEDS: 0.9% Saline Lock 10 ML Syringe IV ×2 (05:34→11:21)
--- NOTE | 2021-01-18 09:00 | ECHOD_ITS ---
Reason For Study: XXXXXXXCAROTID DUPLEXXXXXXXX Procedure This was a 2D Doppler, Color Flow transthoracic echocardiogram. The study was technically difficult. Exam performed portable in patient room. Left Ventricle Normal LV size. Left ventricular systolic function is normal. The estimated ejection fraction is 70 %. Diastolic function is indeterminate. No regional wall motion abnormalities noted. Right Ventricle Normal RV size. Normal systolic function. Atria Normal left atrium. Normal right atrium. No doppler evidence for ASD. Mitral Valve There is no mitral annular calcification. Normal mitral valve. Trivial mitral valve insufficiency. Tricuspid Valve Normal tricuspid valve. Trivial tricuspid valve insufficiency. Right ventricular systolic pressure estimated to be 22 mmHg. Aortic Valve Trisinus/trileaflet aortic valve. Mild focal aortic valve thickening. Pulmonic Valve The pulmonic valve is not well visualized. Great Vessels Normal sized aortic root. Pericardium/Pleural Trivial pericardial effusion. There are no echocardiographic indications of cardiac tamponade. MMode/2D Measurements & Calculations LVIDd: 4.0 cm IVSd: 1.2 cm Ao root diam: 3.3 cm LVIDs: 2.9 cm LVPWd: 1.0 cm RVDd: 2.8 cm FS: 28.9 % LAV(MOD-bp): 27.3 ml LVAd ap4: 22.3 cm2 LVAd ap2: 9.6 cm2 LAV(MOD-bp) Indexed: 15.5 ml/m2 LVLd ap4: 7.4 cm LVLd ap2: 4.9 cm LAV(MOD-sp2): 25.4 ml EDV(MOD-sp4): 56.0 ml EDV(MOD-sp2): 15.8 ml LAV(MOD-sp4): 28.9 ml EDV(sp4-el): 56.8 ml EDV(sp2-el): 15.7 ml LVAs ap4: 11.7 cm2 LVAs ap2: 5.1 cm2 LVLs ap4: 6.4 cm LVLs ap2: 4.7 cm ESV(MOD-sp4): 20.0 ml ESV(MOD-sp2): 5.0 ml ESV(sp4-el): 18.3 ml ESV(sp2-el): 4.8 ml EF(MOD-sp4): 64.4 % EF(MOD-sp2): 68.1 % EF(sp4-el): 67.8 % SV(MOD-sp4): 36.0 ml SV(MOD-sp2): 10.8 ml SV(sp4-el): 38.5 ml LA dimension(2D): 2.8 cm LA A4 area: 12.2 cm2 RA A4 area: 10.4 cm2 Time Measurements MV dec time: 0.22 sec Doppler Measurements & Calculations MV E max milly: 100.7 cm/sec Ao V2 max: 214.9 cm/sec LV V1 max: 191.3 cm/sec MV A max milly: 43.9 cm/sec Ao max P.5 mmHg LV V1 max P.6 mmHg MV E/A: 2.3 Ao V2 mean: 166.9 cm/sec LV V1 mean P.8 mmHg Ao mean P.9 mmHg LV V1 mean: 152.6 cm/sec Ao V2 VTI: 41.7 cm LV V1 VTI: 31.2 cm PA V2 max: 110.5 cm/sec TR max milly: 215.0 cm/sec TR max P.5 mmHg ECHO/Echo Complete Interpretation Summary The study was technically difficult. Left ventricular systolic function is normal. The estimated ejection fraction is 70 %. Trivial mitral valve insufficiency. Trivial tricuspid valve insufficiency. Mild focal aortic valve thickening. Trivial pericardial effusion. There are no echocardiographic indications of cardiac tamponade. Right ventricular systolic pressure estimated to be 22 mmHg. Diastolic function is indeterminate. Ordering Physician: Jay Pinzon Referring Physician: Vivian Payne Performed By: Stephanie Yao, RDCS, RVT
[2021-01-18] MEDS: dilTIAZem CD 120 MG Capsule PO (10:26)
[2021-01-18] MEDS: Enoxaparin 60 MG/0.6 ML Syringe SC (10:27)
--- NOTE | 2021-01-18 10:45 | CASEMGMT ---
RN KAVITHA Face to Face with patient for initial transition planning/care coordination assessment. RN CM introduced self and role at [facility]. Patient lying in bed, alert and oriented. Patient willing to participate in assessment and is able to answer all questions appropriately. Care providers, pharmacy, and demographics verified. Patient wishes to discharge home, denies need for home health at this time. Patient states she has no further needs or concerns at this time. CM to follow for discharge planning needs that may arise. PCP: Kerry Specialists: [place], program development specialist; MATT Cormier, GI Preferred Pharmacy: [facility] Benef[facility]: yes Living Will/HPOA: none LNOK:daughter Living Arrangements: Patient lives alone in a 2 story home. Patient states she is independent and able to ambulate stairs. Transportation: self/daughter DME/HHC: Patient denies DME or previous HHC. Disposition Plan: Patient to discharge home with family support and follow-up plans in place. Bekah SINGER, RN, CM
[2021-01-18] MEDS: Potassium Chloride Oral Tablet 20 MEQ PO (11:19)
[2021-01-18] MEDS: Loperamide 2 MG Capsule PO (11:19)
--- NOTE | 2021-01-18 12:19 | CON.PCM.CA_ITS ---
Assessment & Plan Assessment/Plan (1) Atrial fibrillation with rapid ventricular response: PLAN: At the present time the patient has a history of paroxysmal atrial fibrillation. She has undergone noninvasive and invasive evaluation the past as noted. She has had a recurrence of her atrial dysrhythmia. Fortunately, with IV diltiazem, she converted back to sinus rhythm. At the present time, especially noting this may be brought on by her COVID-19 diagnosis, it would be reasonable to continue her on diltiazem therapy on a regular basis pending further evaluation. As her episodes have been rare and brief she wants to continue aspirin therapy and not initiate anticoagulant therapy. She will also be having an echocardiogram performed to reassess her atrial size and her left ventricular wall motion and systolic function. (2) COVID-19: PLAN: She will continue evaluation care per internal medicine. Addt'l Comments The above was discussed and reviewed with the patient and she was agreeable to this approach. HPI Consult Data Date of Consult: 01/18/21 HPI Narrative HPI Narrative: HILARY ULRICH, is a 70 year old white female who presents for cardiovascular consultation based upon concerns of atrial fibrillation. The patient has a longstanding history of atrial fibrillation. She has been evaluated locally in the remote past and at [facility]. She has undergone previous EPS/RFA procedures at [facility] in 1999 and at [facility] in 2003. Her last local outp [facility] cardiovascular visit was on 10-12-2016. She has not been back for outpatient cardiovascular follow-up since that time. She believes her last EP evaluation/office visit through the [facility] system was also in 2017. At that time she was instructed to use her diltiazem (short acting) on a as needed basis and she was not required to be on long-term oral systemic anticoagulant therapy. The patient states that she has been doing well with intermittent brief episodes of her atrial dysrhythmia. During this time she takes 4 baby aspirin and her short acting oral diltiazem therapy. She notes usually within a matter of hours (less than 24 hours) she reverts back to sinus rhythm. She states that she did not receive the COVID-19 vaccination. She has gone on to be diagnosed with COVID-19. She states she is now out of quarantine. However she states she is still not regained her sense of smell and taste. She is still felt somewhat short of breath since her diagnosis. She notes her cardiac rhythm was doing well until just recently. She noted recurrence of her rapid rate. She was instructed to report to the emergency department for evaluation. She was found to be in atrial fibrillation with RVR. She had negative troponin I levels. Her ECG demonstrated atrial flutter. She was hugo alon with IV diltiazem. She had a follow-up ECG suggesting an underlying junctional rhythm. Her cardiac rhythm monitor has suggested conversion to sinus rhythm. She has denied any other symptoms of classic angina pectoris. She has had no acute orthopnea or PND or peripheral pitting edema. There has been no near syncope or syncope. 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 atrial fibrillation Gastritis GERD (gastroesophageal reflux disease) Paroxysmal atrial fibrillation Home Medications aspirin 81 mg PO DAILY 02/27/19 [History Last Taken 01/17/21] esomeprazole magnesium 20 mg PO DAILY 02/27/19 [History Last Taken 01/10/21] potassium chloride 20 meq PO DAILY 01/05/21 [History Last Taken 01/10/21] diltiazem HCl 60 mg PO Q6H PRN PRN 01/18/21 [History Last Taken Unknown] Allergy/AdvReac Type Severity Reaction Status Date / Time procainamide Allergy Unknown Unknown Verified 01/17/21 18:48 ciprofloxacin [From Cipro] Allergy Other Verified 01/17/21 18:48 metronidazole [From Flagyl] Allergy Diarrhea Verified 01/17/21 18:48 Sulfa (Sulfonamide Allergy Anaphylaxis Verified 01/17/21 18:48 Antibiotics) amiodarone AdvReac Other Verified 01/17/21 22:52 flecainide AdvReac Other Verified 01/17/21 22:52 propafenone [From Rythmol] AdvReac Other Verified 01/17/21 22:52 tramadol AdvReac Vomiting Verified 01/17/21 18:48 ALMOST ALL HEART MEDS Allergy Unknown Uncoded 01/17/21 18:48 Surgical History Hx of colectomy Social History Smoking Status: Never smoker substance use type: does not use ROS Constitutional Constitutional: Reports poor appetite and other Details: Decreased sense of smell and taste Eyes Eyes: Reports as per HPI ENT HEENT: Reports as per HPI Cardiovascular Cardiovascular: Reports palpitations Respiratory/Chest Respiratory/Chest: Reports dyspnea Gastrointestinal Gastrointestinal: Reports as per HPI Genitourinary Genitourinary: Reports as per HPI Musculoskeletal Musculoskeletal: Reports as per HPI Neurologic Neurologic: Reports as per HPI Physical Exam Const alert, oriented x3, no apparent distress and healthy appearing Orientation / Consciousness: awake HEENT normocephalic, head/scalp atraumatic and hearing grossly normal bilaterally Eyes PERRL, EOMs intact bilaterally and conjunctivae normal Neck full ROM, supple and no JVD Resp clear to auscultation bilaterally Cardio regular rate, regular rhythm, S1 normal heart sound and S2 normal heart sound GI normal to inspection, nondistended, normoactive bowel sounds Extremity no pedal edema Skin no rashes or lesions noted Neuro oriented x3, moves all extremities, no focal motor deficits and no sensory deficits noted Psych mental status grossly normal Procedure Criteria Type of Procedure Procedure Type: Elective Elective Risks - COVID COVID Risk Discussion: The surgeon/proceduralist and patient have discussed in detail the risk of exposure to and/or potential harm posed by the COVID-19 virus with having a surgery/procedure at this time versus the risk of delaying the surgery/procedure. It is not possible to know either the risk of delaying the surgery or procedure or chance of getting an infection with perfect accuracy, but a joint decision was made between the patient and the surgeon/proceduralist to proceed at this time with the scheduled surgery/procedure as indicated on the consent form. Objective Data Vital Signs: Vital Signs Temp Pulse Resp BP Pulse Ox 98 F 67 16 117/68 94 01/18/21 10:01/18/21 11:00 01/18/21 11:00 01/18/21 11:01/18/21 11:00 Oxygen Flow Rate (L/min) 2 Oxygen Delivery Method Room Air Weight: 140 lb 10.354 oz Body Mass Index (BMI) 22.6 Intake & Output: Intake and Output for Last 24 Hours 01/16/21 01/17/21 01/18/21 23:59 23:59 23:59 Intake Total 28.75 / 28.75 729.50 / 729.50 Balance 28.75 / 28.75 729.50 / 729.50 Lab / Micro Data Result Diagrams: 01/18/21 03:08 01/18/21 03:08 Labs: Laboratory Results - last 24 hr 01/17/21 19:50: D-Dimer Quant (PE/DVT) 1.50 H* 01/17/21 20:38: WBC 11.5 H, RBC 4.67, Hgb 14.2, Hct 42.1, MCV 90.1, MCH 30.4, MCHC 33.7, RDW Std Deviation 39.1, RDW Coeff of Tammy 11.9, Plt Count 629 H, MPV 9.0, Immature Gran % (Auto) 0.700, Neut % (Auto) 70.6 H, Lymph % (Auto) 20.9, Preston % (Auto) 7.3, Eos % (Auto) 0.2, Baso % (Auto) 0.3, Absolute Neuts (auto) 8.1 H, Absolute Lymphs (auto) 2.41, Nucleated RBC % 0 01/17/21 20:38: Sodium 137, Potassium 4.0, Chloride 104, Carbon Dioxide 22.0, Anion Gap 11, BUN 23 H, Creatinine 0.82, Estim Creat Clear Calc 58.91, Est GFR ( MDRD) Af Amer 89, Est GFR (MDRD) Non-Af 73, BUN/Creatinine Ratio 28.2 H, Glucose 107 H, Calcium 9.5, Troponin I High Sens 22.4 01/18/21 03:08: WBC 9.5, RBC 4.63, Hgb 13.8, Hct 42.7, MCV 92.2, MCH 29.8, MCHC 32.3, RDW Std Deviation 40.9, RDW Coeff of Tammy 12.1, Plt Count 541 H, MPV 8.8, Immature Gran % (Auto) 0.400, Neut % (Auto) 70.5 H, Lymph % (Auto) 22.0, Preston % (Auto) 6.4, Eos % (Auto) 0.3, Baso % (Auto) 0.4, Absolute Neuts (auto) 6.7, Absolute Lymphs (auto) 2.09, Nucleated RBC % 0 01/18/21 03:08: PT 13.4, INR 1.1 01/18/21 03:08: Sodium 134 L, Potassium 4.1, Chloride 101, Carbon Dioxide 22.0, Anion Gap 11, BUN 21 H, Creatinine 0.84, Estim Creat Clear Calc 57.51, Est GFR (MDRD) Af Amer 86, Est GFR (MDRD) Non-Af 71, BUN/Creatinine Ratio 25.0 H, Glu cose 114 H, Calcium 8.8, Magnesium 2.5 01/18/21 03:08: Troponin I High Sens 26.5 Cardiology Labs/Tests 01/17/21 19:50: D-Dimer Quant (PE/DVT) 1.50 H* 01/17/21 20:38: WBC 11.5 H, RBC 4.67, Hgb 14.2, Hct 42.1, MCV 90.1, MCH 30.4, MCHC 33.7, Plt Count 629 H, MPV 9.0, Immature Gran % (Auto) 0.700, Neut % (Auto) 70.6 H, Lymph % (Auto) 20.9, Preston % (Auto) 7.3, Eos % (Auto) 0.2, Baso % (Auto) 0.3, Absolute Neuts (auto) 8.1 H, Nucleated RBC % 0 01/17/21 20:38: Sodium 137, Potassium 4.0, Chloride 104, Carbon Dioxide 22.0, Anion Gap 11, BUN 23 H, Creatinine 0.82, Est GFR (MDRD) Af Amer 89, Est GFR (MDRD) Non-Af 73, BUN/Creatinine Ratio 28.2 H, Glucose 107 H, Calcium 9.5 01/18/21 03:08: WBC 9.5, RBC 4.63, Hgb 13.8, Hct 42.7, MCV 92.2, MCH 29.8, MCHC 32.3, Plt Count 541 H, MPV 8.8, Immature Gran % (Auto) 0.400, Neut % (Auto) 70.5 H, Lymph % (Auto) 22.0, Preston % (Auto) 6.4, Eos % (Auto) 0.3, Baso % (Auto) 0.4, Absolute Neuts (auto) 6.7, Nucleated RBC % 0 01/18/21 03:08: PT 13.4, INR 1.1 01/18/21 03:08: Sodium 134 L, Potassium 4.1, Chloride 101, Carbon Dioxide 22.0, Anion Gap 11, BUN 21 H, Creatinine 0.84, Est GFR (MDRD) Af Amer 86, Est GFR (MDRD) Non-Af 71, BUN/Creatinine Ratio 25.0 H, Glucose 114 H, Calcium 8.8, Magnesium 2.5 Rhythm: As noted above EKG: As noted above ECHO: Pending Radiography Diagnostic Testing: Radiology Impression Chest X-Ray 01/17/21 20:02 IMPRESSION: Bibasilar airspace opacities consistent with Covid pneumonia. Electronically Signed: Harris Krishna MD at 20:52 EDT Tel , Service support , Chest CTA 01/18/21 22:30 IMPRESSION: Findings are suggestive of chronic obstructive pulmonary disease with superimposed Covid pneumonia or potentially atypical infiltrates. No pulmonary embolism. Nonspecific borderline right hilar lymph node. Persistent right apical nodule most likely associated with scarring and/or prior granulomatous disease. Electronically Signed: Oralia Kilpatrick MD at 2:27 EDT Tel , Service support ,
--- NOTE | 2021-01-18 12:58 | PN.HOSP_ITS ---
Documented by User: Berlin MAJANO 01/18/21 13:08 Subjective Subjective Patient is a 70-year-old female comfortably resting in bed, alert and orient x3. Patient denies any symptoms since admission, denies chest pain, shortness of breath, palpitations, hemoptysis, sputum production, fever, chills, N/V/D. Objective Data Objective Data Vital Signs: Vital Signs Temp Pulse Resp BP Pulse Ox 98 F 64 16 117/68 94 01/18/21 10:00 01/18/21 12:32 01/18/21 11:00 01/18/21 11:00 01/18/21 11:00 Oxygen Flow Rate (L/min) 2 Oxygen Delivery Method Room Air Weight: 140 lb 10.354 oz Body Mass Index (BMI) 22.6 Intake & Output: Intake and Output for Last 24 Hours 01/16/21 01/17/21 01/18/21 23:59 23:59 23:59 Intake Total 28.75 / 28.75 729.50 / 729.50 Balance 28.75 / 28.75 729.50 / 729.50 Lab / Micro Data Result Diagrams: 01/18/21 03:08 01/18/21 03:08 Labs: Laboratory Results - last 24 hr 01/17/21 19:50: D-Dimer Quant (PE/DVT) 1.50 H* 01/17/21 20:38: WBC 11.5 H, RBC 4.67, Hgb 14.2, Hct 42.1, MCV 90.1, MCH 30.4, MCHC 33.7, RDW Std Deviation 39.1, RDW Coeff of Tammy 11.9, Plt Count 629 H, MPV 9.0, Immature Gran % (Auto) 0.700, Neut % (Auto) 70.6 H, Lymph % (Auto) 20.9, [place] % (Auto) 7.3, Eos % (Auto) 0.2, Baso % (Auto) 0.3, Absolute Neuts (auto) 8.1 H, Absolute Lymphs (auto) 2.41, Nucleated RBC % 0 01/17/21 20:38: Sodium 137, Potassium 4.0, Chloride 104, Carbon Dioxide 22.0, Anion Gap 11, BUN 23 H, Creatinine 0.82, Estim Creat Clear Calc 58.91, Est GFR (MDRD) Af Amer 89, Est GFR (MDRD) Non-Af 73, BUN/Creatinine Ratio 28.2 H, Glucose 107 H, Calcium 9.5, Troponin I High Sens 22.4 01/18/21 03:08: WBC 9.5, RBC 4.63, Hgb 13.8, Hct 42.7, MCV 92.2, MCH 29.8, MCHC 32.3, RDW Std Deviation 40.9, RDW Coeff of Tammy 12.1, Plt Count 541 H, MPV 8.8, Immature Gran % (Auto) 0.400, Neut % (Auto) 70.5 H, Lymph % (Auto) 22.0, [place] % (Auto) 6.4, Eos % (Auto) 0.3, Baso % (Auto) 0.4, Absolute Neuts (auto) 6.7, Absolute Lymphs (auto) 2.09, Nucleated RBC % 0 01/18/21 03:08: PT 13.4, INR 1.1 01/18/21 03:08: Sodium 134 L, Potassium 4.1, Chloride 101, Carbon Dioxide 22.0, Anion Gap 11, BUN 21 H, Creatinine 0.84, Estim Creat Clear Calc 57.51, Est GFR (MDRD) Af Amer 86, Est GFR (MDRD) Non-Af 71, BUN/Creatinine Ratio 25.0 H, Glucose 114 H, Calcium 8.8, Magnesium 2.5 01/18/21 03:08: Troponin I High Sens 26.5 Radiography Diagnostic Testing: Radiology Impression Chest X-Ray 01/17/21 20:02 IMPRESSION: Bibasilar airspace opacities consistent with Covid pneumonia. Electronically Signed: Harris Krishna MD at 20:52 EDT Tel , Service support , Chest CTA 01/18/21 22:30 IMPRESSION: Findings are suggestive of chronic obstructive pulmonary disease with superimposed Covid pneumonia or potentially atypical infiltrates. No pulmonary embolism. Nonspecific borderline right hilar lymph node. Persistent right apical nodule most likely associated with scarring and/or prior granulomatous disease. Electronically Signed: Oralia Kilpatrick MD at 2:27 EDT Tel , Service support , Physical Exam Const alert, oriented x3 and no apparent distress HEENT head/scalp atraumatic and moist oral mucous membranes Head and Scalp: normocephalic Eyes EOMs intact bilaterally and conjunctivae normal Neck no lymphadenopathy, supple and no JVD Resp normal respiratory effort, no retractions, no use of accessory muscles and clear to auscultation bilaterally Cardio regular rate, regular rhythm, no murmurs and no JVD GI normal to inspection, nondistended, normoactive bowel sounds, soft to palpation and non-tender Extremity normal to inspection, full ROM and no clubbing, cyanosis or edema Skin no rashes or lesions noted, no wounds, skin turgor normal and no jaundice Neuro CN's II-XII intact bilaterally Psych affect normal Assessment & Plan Assessment/Plan (1) Atrial fibrillation with rapid ventricular response: (2) COVID-19: PLAN: Day 2: See subjective. Discharge planning: Patient to be discharged home when medically ready, no home health care needs or additional therapies identified. 1) A. fib with RVR Patiently is currently in normal sinus rhythm after diltiazem infusion. Cardiology following, recommends continuing diltiazem and for the patient to obtain a echocardiogram. Patient is on diltiazem 60 mg p.o. every 6 as needed at home for rate control and is not on any anticoagulation due to 2 prior ablations. Will consult with cardiology to determine if anticoagulation is now indicated. 2) history of recent COVID-19 infection Patient was diagnosed with Covid at the end of December, with an overall uncomplicated course. Patient is currently outside of quarantine window and denies any respiratory symptoms. Vital signs are stable and patient is afebrile currently satting at 94% on room air. DVT prophylaxis - Lovenox Patient seen by Berlin Smith PA-C, under the supervision of Dr. Rivas. Documented by User: Dr. Daniel Rivas MD 01/18/21 14:13 Objective Data Lab / Micro Data Result Diagrams: 01/18/21 03:08 01/18/21 03:08 Charges/Coding Addendum Addendum: Dr. Rivas: I personally reviewed the chart and examined the patient, and agree with the above findings. 70-year-old female who recently became COVID-19, presents with palpitations and A. fib. She had D-dimer on admission which was elevated, CT of the chest was negative for PE however does appear that she has continued pulmonary changes from her COVID-19 infection a little over 2 weeks ago. No was unremarkable, EF was normal and she has very mild pulmonary hypertension with an RVSP of 22 mmHg. Cardiac was evaluated her and will continue Cardizem as well as start her on aspirin, she does not want to go on to anticoagulant therapy. We will continue to monitor for today, she does feel better now that she is in normal sinus rhythm. Visit Charges Inpatient E&M: 48028 Subs Hosp L2
[2021-01-18] MEDS: NYSTATIN 500,000 UNIT/5 ML UDC 500000 UNIT PO (13:24)
--- NOTE | 2021-01-18 14:32 | PCM.DC ---
Discharge Instructions Diet Discharge Diet: No restrictions Activity Discharge Activity: Return to Normal Activity Weight Bearing Status: Weight bearing as tolerated Dressing / Incision Call your doctor if you observe: Fever of 101 or Higher, Numbness or Tingling, Shortness of breath, Dizziness, Chest pain, Increased palpitations (irregular heartbeat) and Calf discomfort Follow Up Care Please Follow Up With: Primary care provider When: Within the next two weeks. Test Results: Test results from this visit will be discussed in further detail at your follow-up appointment, if applicable. Discharge Plan Admission Admit Date/Time: 01/17/21 22:02 Primary Reason for Your Visit: Atrial Fibrillation Attending Provider: Daniel Rivas Primary Care Provider: Vivian Payne Consulting Providers: Jay Pinzon Discharge Orders/Prescriptions Prescriptions: New diltiazem HCl [Cardizem] 120 mg tablet 120 mg PO DAILY Qty: 30 RF: 0 Continued aspirin 81 MG tablet,delayed release (DR/EC) 81 mg PO DAILY RF: 0 esomeprazole magnesium 20 MG capsule 20 mg PO DAILY RF: 0 potassium chloride 10 mEq capsule, extended release 20 meq PO DAILY RF: 0 Discontinued diltiazem HCl 60 mg Tablet 60 mg PO Q6H PRN PRN (Reason: arrythnmia) RF: 0 Referrals / Follow Up: Vivian Payne DO [Primary Care Provider] - Within 2 Weeks Jay Pinzon MD [STAFF PHYSICIAN] - Within 2 Weeks Disposition Disposition (needs filled in before D/C Order can be placed): Home, Self Care
--- NOTE | 2021-01-18 15:35 | DS.PCM_ITS ---
Documented by User: Berlin MAJANO 01/18/21 16:20 Providers Date of Admission: 01/17/21 Primary Care Physician: Dr. Vivian Payne DO Consultations 01/17/21 22:03 Consult: Cardiology Routine Consulting Provider: Jay Pinzon Reason for Consult: a fib rvr EMERGENT Consult: No MD Notified: Yes Date Notified: 01/17/21 Time Notified: 22:06 Method of Notification: Text Reason For Visit: A FIB RVR Diagnosis Discharge Diagnosis (1) Atrial fibrillation with rapid ventricular response: Status: Acute Code(s): I48.91 - Unspecified atrial fibrillation (2) COVID-19: Status: Acute Code(s): U07.1 - COVID-19 Medications at Discharge Home Medications aspirin 81 mg PO DAILY 02/27/19 esomeprazole magnesium 20 mg PO DAILY 02/27/19 potassium chloride 20 meq PO DAILY 01/05/21 diltiazem HCl [Cardizem] 120 mg PO DAILY #30 tab 01/18/21 Hospital Course Procedures Angiogram and Transthoracic echo Summary of Care Provided Minutes Spent on Discharge: 35 Hospital Course: Disposition: Patient to be discharged home, no home health care needs or additional therapies identified. 1) A. fib with RVR Patient has converted back to normal sinus rhythm after Cardizem drip. Patient cannot be anticoagulated due to prior ablations. Echocardiogram from 01/18 demonstrated normal LV systolic function, an estimated EF of 70%, and RVSP of 22 mmHg and indeterminate diastolic dysfunction. Plan; patient to be switched from as needed Cardizem to Cardizem 120 mg p.o. daily, patient to follow-up with cardiology within the next 2 weeks. 2) history of recent COVID-19 infection Patient was diagnosed with Covid at the end of December, with an overall uncomplicated course. Patient is currently outside of quarantine window and denies any respiratory symptoms. Vital signs are stable and patient is afebrile currently satting at 94% on room air. 3) elevated D-dimer CT-A does not demonstrate any signs of pulmonary embolism or arterial dissection. Patient seen by Berlin Smith PA-C, under the supervision of Dr. Rivas. Physical Exam Narrative Patient is a 70-year-old female comfortably resting in bed, alert and orient x3. Patient denies any development of any new symptoms. Denies chest pain, shortness of breath, palpitations, hemoptysis, sputum production, fever, chills, N/V/D. Const alert, oriented x3 and no apparent distress HEENT normocephalic, head/scalp atraumatic and hearing grossly normal bilaterally Eyes EOMs intact bilaterally and conjunctivae normal Neck no lymphadenopathy, supple and no JVD Resp normal respiratory effort, no retractions, no use of accessory muscles and clear to auscultation bilaterally Cardio regular rate, regular rhythm, no murmurs and no JVD GI normal to inspection, nondistended, normoactive bowel sounds, soft to palpation and non-tender Extremity normal to inspection, full ROM and no clubbing, cyanosis or edema Skin no rashes or lesions noted, no wounds and skin turgor normal Neuro CN's II-XII intact bilaterally Psych affect normal Weight / BMI Weight Weight: 140 lb 10.354 oz Body Mass Index (BMI) 22.6 ABG / Lab / Microbiology Data Result Diagrams: 01/18/21 03:08 01/18/21 03:08 Laboratory: Laboratory Results - last 24 hr 01/17/21 19:50: D-Dimer Quant (PE/DVT) 1.50 H* 01/17/21 20:38: WBC 11.5 H, RBC 4.67, Hgb 14.2, Hct 42.1, MCV 90.1, MCH 30.4, MCHC 33.7, RDW Std Deviation 39.1, RDW Coeff of Tammy 11.9, Plt Count 629 H, MPV 9.0, Immature Gran % (Auto) 0.700, Neut % (Auto) 70.6 H, Lymph % (Auto) 20.9, Merrick % (Auto) 7.3, Eos % (Auto) 0.2, Baso % (Auto) 0.3, Absolute Neuts (auto) 8.1 H, Absolute Lymphs (auto) 2.41, Nucleated RBC % 0 01/17/21 20:38: Sodium 137, Potassium 4.0, Chloride 104, Carbon Dioxide 22.0, Anion Gap 11, BUN 23 H, Creatinine 0.82, Estim Creat Clear Calc 58.91, Est GFR (MDRD) Af Amer 89, Est GFR (MDRD) Non-Af 73, BUN/Creatinine Ratio 28.2 H, Glucose 107 H, Calcium 9.5, Troponin I High Sens 22.4 01/18/21 03:08: WBC 9.5, RBC 4.63, Hgb 13.8, Hct 42.7, MCV 92.2, MCH 29.8, MCHC 32.3, RDW Std Deviation 40.9, RDW Coeff of Tammy 12.1, Plt Count 541 H, MPV 8.8, Immature Gran % (Auto) 0.400, Neut % (Auto) 70.5 H, Lymph % (Auto) 22.0, Merrick % (Auto) 6.4, Eos % (Auto) 0.3, Baso % (Auto) 0.4, Absolute Neuts (auto) 6.7, Absolute Lymphs (auto) 2.09, Nucleated RBC % 0 01/18/21 03:08: PT 13.4, INR 1.1 01/18/21 03:08: Sodium 134 L, Potassium 4.1, Chloride 101, Carbon Dioxide 22.0, Anion Gap 11, BUN 21 H, Creatinine 0.84, Estim Creat Clear Calc 57.51, Est GFR (MDRD) Af Amer 86, Est GFR (MDRD) Non-Af 71, BUN/Creatinine Ratio 25.0 H, Glucose 114 H, Calcium 8.8, Magnesium 2.5 01/18/21 03:08: Troponin I High Sens 26.5 Radiography Diagnostic Testing: Radiology Impression Chest X-Ray 01/17/21 20:02 IMPRESSION: Bibasilar airspace opacities consistent with Covid pneumonia. Electronically Signed: Harris Krishna MD at 20:52 EDT Tel , Service support , Echocardiogram 01/18/21 09:00 Interpretation Summary The study was technically difficult. Left ventricular systolic function is normal. The estimated ejection fraction is 70 %. Trivial mitral valve insufficiency. Trivial tricuspid valve insufficiency. Mild focal aortic valve thickening. Trivial pericardial effusion. There are no echocardiographic indications of cardiac tamponade. Right ventricular systolic pressure estimated to be 22 mmHg. Diastolic function is indeterminate. Ordering Physician: Jay Pinzon Referring Physician: Vivian Payne Performed By: Stephanie Yao, RDCS, RVT Chest CTA 01/18/21 22:30 IMPRESSION: Findings are suggestive of chronic obstructive pulmonary disease with superimposed Covid pneumonia or potentially atypical infiltrates. No pulmonary embolism. Nonspecific borderline right hilar lymph node. Persistent right apical nodule most likely associated with scarring and/or prior granulomatous disease. Electronically Signed: Oralia Kilpatrick MD at 2:27 EDT Tel , Service support , D/C Instructions Discharge Diet: No restrictions Weight Bearing Status: Weight bearing as tolerated Call your doctor if you observe: Fever of 101 or Higher, Numbness or Tingling, Shortness of breath, Dizziness, Chest pain, Increased palpitations (irregular heartbeat) and Calf discomfort Please Follow Up With: Primary care provider When: Within the next two weeks. Meaningful Use Info Meaningful Use Diagnoses (Choose all that apply): None applicable Discharge Plan Admission Admit Date/Time: 01/17/21 22:02 Primary Reason for Your Visit: Atrial Fibrillation Attending Provider: Daniel Rivas Primary Care Provider: Vivian Payne Consulting Providers: Jay Pinzon Discharge Orders/Prescriptions Prescriptions: New diltiazem HCl [Cardizem] 120 mg tablet 120 mg PO DAILY Qty: 30 RF: 0 Continued aspirin 81 MG tablet,delayed release (DR/EC) 81 mg PO DAILY RF: 0 esomeprazole magnesium 20 MG capsule 20 mg PO DAILY RF: 0 potassium chloride 10 mEq capsule, extended release 20 meq PO DAILY RF: 0 Discontinued diltiazem HCl 60 mg Tablet 60 mg PO Q6H PRN PRN (Reason: arrythnmia) RF: 0 Referrals / Follow Up: Vivian Payne DO [Primary Care Provider] - Within 2 Weeks Jay Pinzon MD [STAFF PHYSICIAN] - Within 2 Weeks Disposition Disposition (needs filled in before D/C Order can be placed): Home, Self Care Documented by User: Dr. Daniel Rivas MD 01/18/21 18:11 Providers Date of Admission: 01/17/21 Reason For Visit: A FIB RVR Medications at Discharge Home Medications aspirin 81 mg PO DAILY 02/27/19 esomeprazole magnesium 20 mg PO DAILY 02/27/19 potassium chloride 20 meq PO DAILY 01/05/21 diltiazem HCl [Cardizem] 120 mg PO DAILY #30 tab 01/18/21 ABG / Lab / Microbiology Data Result Diagrams: 01/18/21 03:08 01/18/21 03:08 Discharge Plan Admission Admit Date/Time: 01/17/21 22:02 Primary Reason for Your Visit: Atrial Fibrillation Attending Provider: Daniel Rivas Primary Care Provider: Vivian Payne Consulting Providers: Jay Pinzon Discharge Orders/Prescriptions Prescriptions: New diltiazem HCl [Cardizem] 120 mg tablet 120 mg PO DAILY Qty: 30 RF: 0 Continued aspirin 81 MG tablet,delayed release (DR/EC) 81 mg PO DAILY RF: 0 esomeprazole magnesium 20 MG capsule 20 mg PO DAILY RF: 0 potassium chloride 10 mEq capsule, extended release 20 meq PO DAILY RF: 0 Discontinued diltiazem HCl 60 mg Tablet 60 mg PO Q6H PRN PRN (Reason: arrythnmia) RF: 0 Referrals / Follow Up: Vivian Payne DO [Primary Care Provider] - Within 2 Weeks Jay Pinzon MD [STAFF PHYSICIAN] - Within 2 Weeks Disposition Disposition (needs filled in before D/C Order can be placed): Home, Self Care Charges/Coding Addendum Addendum: Dr. Rivas: I personally reviewed the chart and examined the patient, and agree with the above findings. 70-year-old female who recently became COVID-19, presents with palpitations and A. fib. She had D-dimer on admission which was elevated, CT of the chest was negative for PE however does appear that she has continued pulmonary changes from her COVID-19 infection a little over 2 weeks ago. Echo was unremarkable, EF was normal and she has very mild pulmonary hypertension with an RVSP of 22 mmHg. Cardiology evaluated her and transitioned her to Cardizem 120 mg daily. She has felt well since she converted to normal sinus rhythm and it was discussed with her the possibility of going home today, she expressed understanding of the risk and benefits of going home and would like to go home. She will need to follow-up with her PCP in 3 to 5 days. Visit Charges Inpatient E&M: [id number] Disch Hosp
--- NOTE | 2021-01-18 22:30 | CT_ITS ---
STUDY: CTA CHEST REASON FOR EXAM: Female, 70 years old. Elevated d-dimer RADIATION DOSAGE (If Supplied By Facility): CTDIvol = ( 8.36 ) mGy, DLP = ( 229.82 ) mGycm TECHNIQUE: The examination was performed with the intravenous administration of IV 75mL Isovue-370. Post-processing of the angiographic images was performed, with multiplanar reformation and 3D reconstruction. Individualized dose optimization techniques were used for this CT. COMPARISON: January 17, 2021 chest x-ray, CT scan chest October 21, 2018 FINDINGS: Normal enhancement of the main pulmonary artery and right and left pulmonary arteries. Normal enhancement of the bilateral peripheral pulmonary arteries. There is no demonstrated pulmonary embolism. Normal thoracic aorta and visualized great vessels. There is no demonstrated aortic dissection. Normal heart and pericardium. There are a few nonspecific subcentimeter mediastinal lymph nodes. There is a right hilar lymph node measuring 1.6 x 1.8 cm. There is a left hilar lymph node measuring 1.1 cm. Normal visualized trachea and bronchi. The lungs are hyperinflated. Is a persistent right apical pulmonary nodule with a central punctate calcification measuring 1.7 x 1.4 cm. Since prior study there is pattern of scattered groundglass opacity with predominance in the periphery especially in the lower lung zones. Normal pleura. Normal chest wall structures. There is a biopsy clip in the medial aspect of the left breast. The visualized kyphosis degenerative change. Normal visualized upper abdomen. CT/CTA Chest W/WO Contrast IMPRESSION: Findings are suggestive of chronic obstructive pulmonary disease with superimposed Covid pneumonia or potentially atypical infiltrates. No pulmonary embolism. Nonspecific borderline right hilar lymph node. Persistent right apical nodule most likely associated with scarring and/or prior granulomatous disease. Electronically Signed: Oralia Kilpatrick MD at 2:27 EDT Tel , Service support ,
== END 2021-01-18 16:07 | disposition home or self-care (01) | DRG 310 ==
LOC: ED 21:39 → PCU 22:24
PROVIDERS: Admitting Provider Family Medicine; Emergency Provider Emergency Medicine; PCP Family Medicine; Visit Provider Family Medicine
DX: I48.0 Paroxysmal atrial fibrillation (principal); I48.92 Unspecified atrial flutter; I27.20 Pulmonary hypertension, unspecified; K21.9 Gastro-esophageal reflux disease without esophagitis; Z79.82 Long term (current) use of aspirin; Z79.899 Other long term (current) drug therapy; Z86.16 Personal history of COVID-19; Z90.49 Acquired absence of other specified parts of digestive tract
CPT/HCPCS: 71045; 71275; 80048; 83735; 84484; 85025; 85379; 85610; 93005; 93306; 94762; 99285; Q9967; A4216

== ENCOUNTER 2021-02-06 11:44 | Inpatient (IN) | payer MEDICARE, OTHER, SELFPAY ==
[2021-02-06] VITALS (17 sets, daily range): BP systolic 96–136; BP diastolic 50–87; PULSE 83–165; RESP 14–21; TEMP 36.1–36.8; O2SAT 96–99; BMI 21.5; BMI 21.6
--- NOTE | 2021-02-06 11:54 | EKG12_ITS ---
Test Reason : AFIB Blood Pressure : / mmHG Vent. Rate : 162 BPM Atrial Rate : 074 BPM P-R Int : 000 ms QRS Dur : 108 ms QT Int : 304 ms P-R-T Axes : 000 032 104 degrees QTc Int : [address] depression, consider subendocardial injury Abnormal ECG Confirmed by IVANIA HANKS, LO ([id number]), newspaper managing editor WILLIAM CASEY ([id number]) on 02/08/2021 8:36:53 AM Referred By: Israel Nava Confirmed By:LO REDD MD
--- NOTE | 2021-02-06 11:54 | RAD_ITS ---
STUDY: X-RAY CHEST REASON FOR EXAM: Female, 70 years old. chest pain TECHNIQUE: Single AP portable view of the chest. COMPARISON: 01/17/2021 FINDINGS: Focal alveolar opacity in the lower right lung consistent with right lower lobe pneumonia. There is no demonstrated pleural abnormality. Normal size heart. Normal mediastinum and phyllis. Normal visualized pulmonary arteries. Normal visualized aortic arch and descending thoracic aorta. Normal visualized thoracic spine. Normal visualized ribs, clavicles, and shoulders. There is no demonstrated abnormality of the visualized soft tissue structures of the upper abdomen. RAD/Chest 1 View (Portable) IMPRESSION: Right lower lobe pneumonia. Electronically Signed: Milton Valdes MD at 12:53 EDT Tel , Service support ,
[2021-02-06] MEDS: Adenosine 6 MG/2 ML Syringe IV (12:15)
[2021-02-06] MEDS: dilTIAZem 25 MG/5 ML Vial 20 MG IV BOLUS (12:15)
--- NOTE | 2021-02-06 12:19 | ED.RN ---
attempted vagal maneuvers prior to adenosine administration that was unsuccessful.
[2021-02-06 12:20] LABS: Absolute Lymphocyte Count 2.97 X10^3/uL (0.83-4.51); Absolute Neutrophil Count 8.3 X10^3/uL (2.0-7.7); Basophil# 0.06 X10^3/uL; Basophil% 0.5 % (0-1); Eosinophil# 0.01 X10^3/uL; Eosinophils% 0.1 % (0-5); Hematocrit 44.5 % (37-47); Hemoglobin 14.8 g/dL (12.0-15.0); Lymphocyte # 2.97 X10^3/ul (0.83-4.51); Lymphocyte % 23.8 % (19-41); Mean Corp Hgb Conc 33.3 g/dL (32-36); Mean Corpuscular Hgb 30.1 pg (27.0-32.0); Mean Corpuscular Volume 90.6 fL (81-99); Mean Platelet Vol. 9.2 fl (6.2-12.0); Monocyte# 1.09 X10^3/uL; Monocyte% 8.7 % (0-10); NRBC Flagged by Analyzer 0 % (0-5); Neutrophil # 8.28 X10^3/uL (2.7-7.7); Neutrophil % 66.5 % (47-70); Platelet Count 442 K/mm3 (150-450); RBC Distribution Width CV 13.1 % (11.6-14.6); RBC Distribution Width SD 43.2 fl (35.1-43.9); Red Blood Count 4.91 M/mm3 (4.2-5.4); White Blood Count 12.5 K/mm3 (4.4-11.0)
--- NOTE | 2021-02-06 12:22 | EX.ED.DYSGE1 ---
HPI History of Present Illness Chief Complaint: Palpitations Narrative Narrative: 70-year-old female with history of atrial fibrillation presenting with palpitations and dyspnea on exertion. She states this started yesterday and she has been taking heart exam 60 mg p.o. at home. She states he is taken 3 doses. She was referred to the ED because her heart rate was not responding. Patient previously had to be admitted for Cardizem drip due to persistent A. fib with RVR. She states that she was in the hospital most of the day and then spontaneously converted. Patient is not anticoagulated which reportedly is due to previous ablations. Patient recently had CTA given recent COVID-19 infection which was negative for PE. Patient does not report any chest pain. Patient has not had fever or chills. 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 Gastritis GERD (gastroesophageal reflux disease) Paroxysmal atrial fibrillation Home Medications aspirin 81 mg PO DAILY 02/27/19 [History Last Taken 01/17/21] esomeprazole magnesium 20 mg PO DAILY 02/27/19 [History Last Taken 01/10/21] potassium chloride 20 meq PO DAILY 01/05/21 [History Last Taken 01/10/21] diltiazem HCl 60 mg tablet 30 mg PO .COMPLEX #0 tab 01/26/21 [Rx Last Taken Unknown] Lactobacillus acidophilus [Probiotic] 10,000 mmu cells PO DAILY 02/06/21 [History Last Taken Unknown] cholecalciferol (vitamin D3) [Vitamin D3] 25 mcg PO DAILY 02/06/21 [History Last Taken Unknown] digestive enzymes combo no.7 1 cap PO DAILY PRN 02/06/21 [History Last Taken Unknown] metoprolol tartrate 50 mg PO BID #60 tab 02/06/21 [Rx Last Taken Unknown] Allergy/AdvReac Type Severity Reaction Status Date / Time procainamide Allergy Unknown Unknown Verified 02/06/21 11:45 ciprofloxacin [From Cipro] Allergy Other Verified 02/06/21 11:45 metronidazole [From Flagyl] Allergy Diarrhea Verified 02/06/21 11:45 Sulfa (Sulfonamide Allergy Anaphylaxis Verified 02/06/21 11:45 Antibiotics) amiodarone AdvReac Other Verified 02/06/21 11:45 flecainide AdvReac Other Verified 02/06/21 11:45 metoprolol AdvReac Itching Verified 02/06/21 16:46 propafenone [From Rythmol] AdvReac Other Verified 02/06/21 11:45 tramadol AdvReac Vomiting Verified 02/06/21 11:45 ALMOST ALL HEART MEDS Allergy Unknown Uncoded 02/06/21 11:45 Surgical History Hx of colectomy Social History Smoking Status: Never smoker substance use type: does not use ROS ROS ED Constitutional Constitutional ED: Denies chills or fever(s) Eyes Eyes: Denies blurry vision or diplopia ENT ENT ED: Denies rhinorrhea or sore throat Cardiovascular Cardiovascular: Reports palpitations and racing heartbeat; Denies chest pain Respiratory/Chest Respiratory/Chest: Reports dyspnea and dyspnea on exertion; Denies cough or sputum Gastrointestinal Gastrointestinal: Denies abdominal pain, nausea or vomiting Genitourinary Genitourinary ED: Denies dysuria or hematuria Musculoskeletal Musculoskeletal: Denies arthralgias or myalgias Integumentary Denies rash Neurologic Neurologic: Denies headache(s) or paresthesias EXAM Physical Exam Const Vital Signs: 02/06/21 11:45 02/06/21 11:59 02/06/21 12:02 Temperature 98.2 F Temperature Source Temporal Pulse Rate 165 H 162 H Respiratory Rate 21 H 14 Respiratory Effort Blood Pressure 101/87 H 99/83 H Blood Pressure Mean 91 88 Pulse Ox 99 98 Oxygen Delivery Method Room Air Room Air Room Air Oxygen Flow Rate (L/min) 97 02/06/21 12:08 02/06/21 14:46 02/06/21 16:15 Temperature Temperature Source Pulse Rate 116 H 88 Respiratory Rate 15 20 H Respiratory Effort Normal Non-Labored Blood Pressure 133/62 H 103/74 Blood Pressure Mean 85 83 Pulse Ox 99 99 Oxygen Delivery Method Room Air Room Air Oxygen Flow Rate (L/min) Positive well nourished General Appearance ED: NAD HEENT Reports moist mucous membranes Negative for trauma Eyes PERRL and EOMs intact bilaterally Chest Wall inspection of chest normal and palpation of chest normal Resp normal respiratory effort and clear to auscultation bilaterally Cardio regular rhythm Rate: tachycardic GI normal to inspection, nondistended, normoactive bowel sounds Extremity normal to inspection General Extremety ED: Negative for edema or tenderness General Extremity: Negative for edema Neuro oriented x3, CN's II-XII intact bilaterally and no sensory deficits noted Sensorium / Orientation: alert Psych mental status grossly normal Skin no rashes or lesions noted and no wounds MDM MDM MDM Narrative Medical decision making narrative: Patient presenting with palpitations and dyspnea on exertion. She has recent history of COVID-19 infection as well as recent admission for A. fib with RVR and previously was on a Cardizem drip. She states he was initially discharged on extended release Cardizem however this did make her feel well and so she has now taking Cardizem 60 mg p.o. She is taken 3 doses since yesterday. Her heart rate has not improved. EKG performed on arrival on my interpretation shows a ventricular rate of 162 bpm which appears to be SVT on initial evaluation however given her history of A. fib I do suspect this could be an underlying atrial fibrillation. Patient states that she has no history of SVT. 6 mg of adenosine was used which did show the heart rhythm which appeared to be an underlying atrial flutter. Patient tolerated this well. After her rhythm was determined she was given 20 of Cardizem and her repeat EKG shows atrial flutter with a ventricular rate of 84 bpm on my interpretation. Chest x-ray on my interpretation does show what looks like right lower lobe infiltrate and the radiologist does agree, however this does not appear to be significantly changed from her previous x-ray performed when she had COVID-19. Procalcitonin is negative. Patient tried to ambulate after her heart rate went into the 80s however she again went into the 160s and felt unsteady walking. Patient was discussed with Dr. Jackson who recommended giving her metoprolol IV and starting her on 50 mg p.o. twice daily. After receiving the IV dose patient's heart rate still jumped into the 160s when ambulating and she still feels unsteady. Patient also developed a rash on her left foot which she states had occurred previously when she first was treated for A. fib and she cannot recall the medication which caused an allergic reaction. She was given Benadryl IV. At this point I feel the patient will likely need to admit admitted for her symptoms with difficulty ambulating. Discussed with the hospitalist for admission. Impression: 1. Atrial flutter 2. Generalized weakness 3. Allergic reaction Lab Data Attestation: I reviewed the patient's lab results. Labs: Laboratory Results - last 24 hr 02/06/21 02/06/21 02/06/21 11:58 11:58 11:58 WBC 12.5 H RBC 4.91 Hgb 14.8 Hct 44.5 MCV 90.6 MCH 30.1 MCHC 33.3 RDW Std Deviation 43.2 RDW Coeff of Tammy 13.1 Plt Count 442 MPV 9.2 Immature Gran % (Auto) 0.400 Neut % (Auto) 66.5 Lymph % (Auto) 23.8 Chester % (Auto) 8.7 Eos % (Auto) 0.1 Baso % (Auto) 0.5 Absolute Neuts (auto) 8.3 H Absolute Lymphs (auto) 2.97 Nucleated RBC % 0 Sodium 132 L Potassium 3.8 Chloride 98 Carbon Dioxide 23.0 Anion Gap 11 BUN 23 H Creatinine 0.96 Estim Creat Clear Calc 50.32 Est GFR (MDRD) Af Amer 74 Est GFR (MDRD) Non-Af 61 BUN/Creatinine Ratio 24.1 H Glucose 124 H Calcium 9.4 Troponin I High Sens 49 Procalcitonin < 0.04 02/06/21 14:15 WBC RBC Hgb Hct MCV MCH MCHC RDW Std Deviation RDW Coeff of Tammy Plt Count MPV Immature Gran % (Auto) Neut % (Auto) Lymph % (Auto) Chester % (Auto) Eos % (Auto) Baso % (Auto) Absolute Neuts (auto) Absolute Lymphs (auto) Nucleated RBC % Sodium Potassium Chloride Carbon Dioxide Anion Gap BUN Creatinine Estim Creat Clear Calc Est GFR (MDRD) Af Amer Est GFR (MDRD) Non-Af BUN/Creatinine Ratio Glucose Calcium Troponin I High Sens 46 Procalcitonin Radiography Diagnostic Testing: Radiology Impression Chest X-Ray 02/06/21 11:54 IMPRESSION: Right lower lobe pneumonia. Electronically Signed: Milton Valdes MD at 12:53 EDT Tel , Service support , Discharge Plan Triage Chief Complaint: Palpitations ED Provider: Luan Sandhu Dx/Rx/DC Orders Instructions: ED Atrial Flutter Prescriptions: New metoprolol tartrate 50 mg tablet 50 mg PO BID Qty: 60 RF: 0 No Action aspirin 81 MG tablet,delayed release (DR/EC) 81 mg PO DAILY RF: 0 esomeprazole magnesium 20 MG capsule 20 mg PO DAILY RF: 0 potassium chloride 10 mEq capsule, extended release 20 meq PO DAILY RF: 0 cholecalciferol (vitamin D3) [Vitamin D3] 25 mcg (1,000 unit) Capsule 25 mcg PO DAILY RF: 0 Probiotic 10 billion cell Capsule 10,000 mmu cells PO DAILY RF: 0 digestive enzymes combo no.7 Capsule 1 cap PO DAILY PRN (Reason: Indigestion) RF: 0 diltiazem HCl 60 mg tablet 30 mg PO .COMPLEX Qty: 0 RF: 0 Primary Care Provider: Vivian Payne Referrals: Vivian Payne DO [Primary Care Provider] - Disposition Disposition: Home, Self Care
[2021-02-06 12:24] LABS: Anion Gap 11 (5-15); BUN 23 mg/dL (7-18); BUN/Creat Ratio 24.1 RATIO (10-20); Calcium,Total 9.4 mg/dL (8.5-10.1); Chloride 98 mmol/L (98-107); Creatinine, Serum 0.96 mg/dL (0.55-1.02); EST Glomerular Filtration Rate 61 mL/min (>60); Est Glom Filt Rate - Afr Amer 74 mL/min (>60); Estimated Creatinine Clearance 50.32 ml/min; Glucose 124 mg/dL (74-106); Potassium 3.8 mmol/L (3.5-5.1); Sodium Level 132 mmol/L (136-145); Troponin-I HS 49 pg/mL (3.0-54.0)
[2021-02-06 14:37] LABS: Troponin-I HS 46 pg/mL (3.0-54.0)
[2021-02-06 14:41] LABS: Procalcitonin < 0.04 ng/mL (0.00-0.09)
[2021-02-06] MEDS: Metoprolol Tartrate 5 MG/5 ML Vial IV (14:49)
[2021-02-06] MEDS: DiphenhydrAMINE 50 MG/ML Syringe 25 MG IV (16:18)
--- NOTE | 2021-02-06 16:39 | ED.RN ---
pt ambulated to [facility] bathroom, pt's starting heart rate was 85 upon return from bathroom pt's heart rate elevates back to the 160's
--- NOTE | 2021-02-06 17:11 | HP.PCM.HOS_ITS ---
HPI - General General Date of Admission: 02/06/21 HPI Narrative HILARY ULRICH, is a 70 F with protracted history of A. fib and had 2 times RFA ablation and EP study, [facility], [place] in 1999 and [facility] in 2003 came to ER for palpitation and shortness of breath since yesterday. She states her heart rate goes fast and shortness of breath worsens on movement, standing or walking. Sometimes she also gets short of breath even at rest. Denies chest pain or pressure. In ED she got 25 mg and then 10 mg of IV Cardizem bolus versus still tachycardic, heart rate in 130s to 140s. She was also given metoprolol 5 mg IV but she developed rash on her left foot with itchiness. She said she always gets allergic reaction starting on the left foot with different medications mainly beta-juan jose like sotalol, Lopressor. She tolerated verapamil for about 1 year in the past. She was given Benadryl and the rash resolved. First twelve-lead EKG shows SVT at 162 bpm at [address] depression V2 to V5. Second EKG at 1222 shows atrial flutter at rate of 84 per night, with 4:1 conduction. Chest x-ray shows persistent right lung infiltrate similar to previous x-ray and chest CT of 01/17 and 01/18. She also had Covid infection and pneumonia, tested positive on 01/13 and had monoclonal antibodies after 2 weeks. She does not have fever, cough, sputum production or other URI symptoms of pneumonia. COUNT INCLUDES THE [facility] Medical History COVID-19 Electrical isolation of left atrial appendage after cardiac ablation procedure for atrial fibrillation Gastritis GERD (gastroesophageal reflux disease) Paroxysmal atrial fibrillation Home Medications aspirin 81 mg PO DAILY 02/27/19 [History Last Taken 01/17/21] esomeprazole magnesium 20 mg PO DAILY 02/27/19 [History Last Taken 01/10/21] potassium chloride 20 meq PO DAILY 01/05/21 [History Last Taken 01/10/21] diltiazem HCl 60 mg tablet 30 mg PO .COMPLEX #0 tab 01/26/21 [Rx Last Taken Unknown] Lactobacillus acidophilus [Probiotic] 10,000 mmu cells PO DAILY 02/06/21 [History Last Taken Unknown] cholecalciferol (vitamin D3) [Vitamin D3] 25 mcg PO DAILY 02/06/21 [History Last Taken Unknown] digestive enzymes combo no.7 1 cap PO DAILY PRN 02/06/21 [History Last Taken Unknown] metoprolol tartrate 50 mg PO BID #60 tab 02/06/21 [Rx Last Taken Unknown] Allergy/AdvReac Type Severity Reaction Status Date / Time procainamide Allergy Unknown Unknown Verified 02/06/21 11:45 ciprofloxacin [From Cipro] Allergy Other Verified 02/06/21 11:45 metronidazole [From Flagyl] Allergy Diarrhea Verified 02/06/21 11:45 Sulfa (Sulfonamide Allergy Anaphylaxis Verified 02/06/21 11:45 Antibiotics) amiodarone AdvReac Other Verified 02/06/21 11:45 flecainide AdvReac Other Verified 02/06/21 11:45 metoprolol AdvReac Itching Verified 02/06/21 16:46 propafenone [From Rythmol] AdvReac Other Verified 02/06/21 11:45 tramadol AdvReac Vomiting Verified 02/06/21 11:45 ALMOST ALL HEART MEDS Allergy Unknown Uncoded 02/06/21 11:45 Surgical History Hx of colectomy Social History Smoking Status: Never smoker substance use type: does not use ROS ROS Narrative Constitutional: Reports mild shortness of breath, dizziness on walking. HEENT: Reports systems reviewed and no addt'l complaints, except as documented Respiratory/Chest: Denies chest pain. Admission HPI Gastrointestinal: Denies coffee ground emesis, hematemesis or vomiting Genitourinary: Denies burning urination or new urinary tract symptoms Musculoskeletal: Reports joint pain and limited range of motion Neurologic: Denies seizure-like activity skin: Erythematous rash over left foot. After IV metoprolol; resolved Endocrinology: Reports systems reviewed and no addt'l complaints, except as documented Hematologic/Lymphatic: Reports systems reviewed and no addt'l complaints, except as documented Rest 12 ROS are negative except as mentioned in HPI Vital Signs Vital Signs Vital Signs: 02/06/21 11:45 02/06/21 11:59 02/06/21 12:02 Temperature 98.2 F Temperature Source Temporal Pulse Rate 165 H 162 H Respiratory Rate 21 H 14 Respiratory Effort Blood Pressure 101/87 H 99/83 H Blood Pressure Mean 91 88 Pulse Ox 99 98 Oxygen Delivery Method Room Air Room Air Room Air Oxygen Flow Rate (L/min) 97 02/06/21 12:08 02/06/21 14:46 02/06/21 16:15 Temperature Temperature Source Pulse Rate 116 H 88 Respiratory Rate 15 20 H Respiratory Effort Normal Non-Labored Blood Pressure 133/62 H 103/74 Blood Pressure Mean 85 83 Pulse Ox 99 99 Oxygen Delivery Method Room Air Room Air Oxygen Flow Rate (L/min) Weight Weight: 133 lb 9.602 oz Body Mass Index (BMI) 21.5 Physical Exam Narrative General: Alert, Oriented x3, Cooperative HEENT: Atraumatic, PERRLA, EOMI, Normocephalic Oral: No Gingival or Mucosal Lesions/ Ulcerations Neck: Supple, No JVD, Negative Carotid Bruits Lungs: Air entry equal in bilateral lung bases. No crepitation/rhonchi Cardiovascular: Tachycardia, irregular heartbeat, a flutter, Normal S1, Normal S2, No murmurs Abdomen: Bowel Sounds Present, Soft, Non Tender, Non-Distended : No renal angle tenderness. No suprapubic tenderness. Extremities: No edema, Capillary Refill Less than 3 Seconds Skin: Erythematous rash in left foot resolved. Musculoskeletal: No Tenderness to Palpation of Joints or Extremities Neurological: Cranial nerves II-XII grossly intact, DTR 2+/4 and Symmetrical, Neuro grossly intact Psych/Mental Status: Normal Affect, Appropriate. Results Lab / Micro Data Result Diagrams: 02/06/21 11:58 02/06/21 11:58 Labs: Laboratory Results - last 24 hr 02/06/21 11:58: WBC 12.5 H, RBC 4.91, Hgb 14.8, Hct 44.5, MCV 90.6, MCH 30.1, MCHC 33.3, RDW Std Deviation 43.2, RDW Coeff of Tammy 13.1, Plt Count 442, MPV 9.2, Immature Gran % (Auto) 0.400, Neut % (Auto) 66.5, Lymph % (Auto) 23.8, [place] % (Auto) 8.7, Eos % (Auto) 0.1, Baso % (Auto) 0.5, Absolute Neuts (auto) 8.3 H, Absolute Lymphs (auto) 2.97, Nucleated RBC % 0 02/06/21 11:58: Sodium 132 L, Potassium 3.8, Chloride 98, Carbon Dioxide 23.0, Anion Gap 11, BUN 23 H, Creatinine 0.96, Estim Creat Clear Calc 50.32, Est GFR (MDRD) Af Amer 74, Est GFR (MDRD) Non-Af 61, BUN/Creatinine Ratio 24.1 H, Glucose 124 H, Calcium 9.4, Troponin I High Sens 49 02/06/21 11:58: Procalcitonin < 0.04 02/06/21 14:15: Troponin I High Sens 46 Radiology Impression Chest X-Ray 02/06/21 11:54 IMPRESSION: Right lower lobe pneumonia. Electronically Signed: Milton Valdes MD at 12:53 EDT Tel , Service support , Assessment & Plan Assessment/Plan (1) Atrial fibrillation with rapid ventricular response: PLAN: This 70-year-old female is being admitted for atrial fibrillation/flutter with RVR. She failed 25 mg or 10 mg of Cardizem bolus and 5 mg IV metoprolol therefore being admitted on Cardizem drip. 1. Atrial flutter with RVR: Patient is being admitted to PCU on telemetry. Started on Cardizem drip. ER physician Dr. Sandhu discussed with Dr. Jackson earlier and tried bolus Cardizem and metoprolol but patient had rash after metoprolol IV. During previous admission on 01/17/2021 she got converted on Cardizem drip. She was discharged on Cardizem CD 120 mg daily but presently she got bradycardic therefore changed to Cardizem 30 mg daily. Echo from 01/18 shows EF 70%, RVSP 22 mmHg with intermittent muscle function. Start on Eliquis 5 mg p.o. twice daily. Serial troponin. TSH fasting profile ordered. If she still tachycardic and does not convert by tomorrow can consult machine cage maker. 2. History of recent COVID-19 infection status monoclonal antibody: Currently she does not have any pneumonia like symptoms. Chest x-ray individually reviewed and shows similar right well-inflated mild improvement. 3. Chronic problem includes maxillary sinusitis: Resolved. VTE prophylaxis: Eliquis 5 mg p.o. twice daily. Living will/advanced directive/end of life care: Patient does have living will or advanced directive. Her daughter is power of soft work cigar machine operator for health after discussion of benefits/risks procedures involved with full code, DNR CC arrest and DNR CC, the patient opted for full code Patient does want artificial life support including intubation, tube feed, ventilator and/chest compression, central venous catheter, vasopressor and DC shock if needed Total time spent in [id number] encounter in discussion of advanced dir ective 16 minutes. Charges/Coding Visit Charges OBSV E&M: 37294 Initial observation care L3 Procedures Hospitalists Procedures: [id number] Advncd Care Plan 30 Min
[2021-02-06] MEDS: dilTIAZem 25 MG/5 ML Vial 10 MG IV BOLUS (17:40)
[2021-02-06 17:56] LABS: Magnesium 2.3 mg/dL (1.6-2.6)
--- NOTE | 2021-02-06 18:58 | ED.RN ---
WHEN PT INFORMED THAT SHE WAS AN OBSERVATION ADMISSION. PT REFUSING TO BE ADMITTED IF IT IS NOT UNDER FULL ADMISSION. THIS NURSE SPOKE WITH DR MENEZES AND DR ELLIS ABOUT THE ADMISSION STATUS. THIS NURSE, DR ELLIS, AND LONI Walker RN IN THE ROOM TO SPEAK WITH THE PT ABOUT THE ADMISSION STATUS. PT STATES I WAS AN INPATIENT ADMISSION LAST TIME. I DON'T UNDERSTAND WHY I AM NOT AN INPATIENT ADMISSION THIS TIME. AFTER THE CONVERSATION, PT REQUESTING THAT WE CALL HER DAUGHTER TO EXPLAIN THE REASON THAT HER ADMISSION IS OBSERVATION. DR ELLIS SPOKE WITH THE PT DAUGHTER ON THE PHONE. DAUGHTER REQUESTING TO SPEAK WITH DR MENEZES. THIS NURSE SPOKE WITH DR MENEZES ABOUT THE ADMISSION. DR MENEZES REQUESTED THAT THIS NURSE CONTACT CASE MANAGEMENT ABOUT THE ADMISSION. [employer]OC[employer] GAVIN CONTACTED. PER GAVIN, OK TO ADMIT PT INPATIENT / FULL ADMISSION SINCE DR MENEZES ANTICIPATES ADMISSION FOR A COUPLE NIGHTS. DR MENEZES GAVE TELEPHONE ORDER TO CHANGE THE ADMISSION STATUS TO INPATIENT. THIS NURSE UPDATED THE PT ABOUT THE CHANGE IN HER ADMISSION STATUS. THIS NURSE THEN CONTACTED THE DAUGHTER AND UPDATED HER ON THE ADMISSION STATUS CHANGES. WHEN GETTING READY TO TAKE THE PT TO THE FLOOR, PT REFUSING TO LEAVE ER UNTIL SHE HAD THE PAPER FROM REGISTRATION STATING SHE WAS AN INPATIENT ADMISSION
[2021-02-06] MEDS: 0.9% Normal Saline 1,000 ML 75 ML IV (19:26)
--- NOTE | 2021-02-06 19:34 | PCS.PANDOC ---
PANDEMIC DOCUMENTATION INITIATED: Date: 02/06/2021 Time: 1900 pandemic charting in effect
--- NOTE | 2021-02-06 20:06 | PCM.HOSP.N ---
Hospitalist Note Patient refused eliquis trial, preference to use lovenox/coumadin regimen as she had been on this prior. Will d/c eliquis, transition to coumadin with overlapping lovenox, obtain preadministration coags, trend INR.
[2021-02-06 20:49] LABS: International Normalized Ratio 1.1; Prothrombin Time (Protime)PT. 13.7 SECONDS (11.7-14.9)
[2021-02-06 20:50] LABS: Partial Thromboplast Time 32.6 Seconds (24.1-36.2)
[2021-02-06 21:00] LABS: Troponin-I HS 45 pg/mL (3.0-54.0)
[2021-02-06] MEDS: Enoxaparin 60 MG/0.6 ML Syringe SC (22:03)
[2021-02-06] MEDS: dilTIAZem CD 120 MG Capsule PO (22:03)
[2021-02-07] VITALS (19 sets, daily range): BP systolic 89–147; BP diastolic 58–74; PULSE 54–89; RESP 12–18; TEMP 35.9–36.6; O2SAT 97–100
--- NOTE | 2021-02-07 02:11 | EKG12_ITS ---
Test Reason : REPEAT Blood Pressure : / mmHG Vent. Rate : 084 BPM Atrial Rate : 336 BPM P-R Int : 000 ms QRS Dur : 074 ms QT Int : 366 ms P-R-T Axes : 262 000 -42 degrees QTc Int : [address] & T wave abnormality, consider inferior ischemia Abnormal ECG Confirmed by IVANIA HANKS, LO ([id number]), film and video editor WILLIAM CASEY ([id number]) on 02/08/2021 8:38:17 AM Referred By: Israel Nava Confirmed By:LO REDD MD
--- NOTE | 2021-02-07 02:32 | EKG12_ITS ---
Test Reason : NSR CONVERT Blood Pressure : / mmHG Vent. Rate : 059 BPM Atrial Rate : 059 BPM P-R Int : 150 ms QRS Dur : 090 ms QT Int : 448 ms P-R-T Axes : 057 014 -77 degrees QTc Int : 443 ms Sinus bradycardia Nonspecific ST and T wave abnormality Abnormal ECG When compared with ECG of 06-FEB-2021 12:22, MANUAL COMPARISON REQUIRED, DATA IS UNCONFIRMED Confirmed by IVANIA HANKS, LO ([id number]), news copy editor WILLIAM CASEY ([id number]) on 02/08/2021 9:41:53 AM Referred By: Israel Nava Confirmed By:OL REDD MD
[2021-02-07 05:31] LABS: Absolute Lymphocyte Count 2.76 X10^3/uL (0.83-4.51); Absolute Neutrophil Count 4.3 X10^3/uL (2.0-7.7); Basophil# 0.07 X10^3/uL; Basophil% 0.9 % (0-1); Eosinophil# 0.06 X10^3/uL; Eosinophils% 0.8 % (0-5); Hematocrit 38.5 % (37-47); Hemoglobin 12.7 g/dL (12.0-15.0); Lymphocyte # 2.76 X10^3/ul (0.83-4.51); Lymphocyte % 34.6 % (19-41); Mean Corpuscular Hgb 30.8 pg (27.0-32.0); Mean Corpuscular Volume 93.2 fL (81-99); Mean Platelet Vol. 9.1 fl (6.2-12.0); Monocyte# 0.75 X10^3/uL; Monocyte% 9.4 % (0-10); NRBC Flagged by Analyzer 0 % (0-5); Neutrophil % 53.9 % (47-70); Platelet Count 334 K/mm3 (150-450); RBC Distribution Width CV 13.3 % (11.6-14.6); RBC Distribution Width SD 45.6 fl (35.1-43.9); Red Blood Count 4.13 M/mm3 (4.2-5.4)
[2021-02-07] MEDS: Enoxaparin 60 MG/0.6 ML Syringe SC ×2 (05:33→17:17)
[2021-02-07 05:51] LABS: International Normalized Ratio 1.2; Prothrombin Time (Protime)PT. 14.4 SECONDS (11.7-14.9)
[2021-02-07 06:08] LABS: Anion Gap 6 (5-15); BUN 10 mg/dL (7-18); BUN/Creat Ratio 16.1 RATIO (10-20); Calcium,Total 8.1 mg/dL (8.5-10.1); Chloride 106 mmol/L (98-107); Cholesterol 143 mg/dL (200); Creatinine, Serum 0.62 mg/dL (0.55-1.02); EST Glomerular Filtration Rate 100 mL/min (>60); Est Glom Filt Rate - Afr Amer 121 mL/min (>60); Glucose 106 mg/dL (74-106); High Density Lipoprotein 50 mg/dL; Potassium 3.2 mmol/L (3.5-5.1); Sodium Level 137 mmol/L (136-145); Thyroid Stim Hormone (TSH) 0.78 uIU/mL (0.358-3.74); Triglycerides 207 mg/dL; Very Low Density Lipoprotein 41 mg/dL (5-40)
[2021-02-07] MEDS: Cholecalciferol (VIT D3) 25 MCG TABLET (1,000 UNITS) PO (10:02)
[2021-02-07] MEDS: Aspirin E.C. 81 MG Tablet PO (10:02)
[2021-02-07] MEDS: Pantoprazole Sodium 20 MG Tablet PO (10:02)
[2021-02-07] MEDS: Potassium Chloride Oral Tablet 20 MEQ PO (10:03)
[2021-02-07] MEDS: Potassium Chloride Oral Tablet 20 MEQ 40 MEQ PO (10:03)
[2021-02-07] MEDS: dilTIAZem CD 120 MG Capsule PO (10:33)
--- NOTE | 2021-02-07 11:47 | CASEMGMT ---
TRACY PLUMMER Readmission Review Note: Admissions: 01/05/21 ED/COVID positive 01/07/21 ED/Confusion/COVID--Daughter stay w/pt--referral for Monoclonal Antibodies 01/09/21 ED/increased SOB, did not qualify for home O2, awaiting Monoclonal antibody call 01/10/21 Received Monoclonal Antibody infusion 01/17 - 01/18/21 Inpt/Afib RVR 02/06/21 - current Inpt/Aflutter RVR Pt with comorbidities including afib s/p ablation procedures with recurrence necessitating last admission with conversion back to SR; gastritis and GERD. Pt readmitted with return of the atrial flutter with RVR. Pt sees specialists including Dr. Pinzon (global director air and climate change) and MATT Cormier (GI). Pt lives alone in a two story home, independent with ADLs and is supported by her daughter. TRACY PLUMMER will continue to follow and assist with needs as identified. Destiny Shaw RN CM
[2021-02-07] MEDS: hydrALAZINE 20 MG/ML Vial 5 MG IV (12:40)
--- NOTE | 2021-02-07 13:08 | PCM.PN.HOSP ---
Subjective Subjective Patient was seen and examined. She remains in normal sinus rhythm. Complains of feeling unwell. Blood pressure slightly elevated. Objective Data Objective Data Vital Signs: Vital Signs Temp Pulse Resp BP Pulse Ox 97.4 F L 65 17 141/64 H 100 02/07/21 10:00 02/07/21 12:40 02/07/21 10:00 02/07/21 12:40 02/07/21 10:00 Oxygen Flow Rate (L/min) 97 Oxygen Delivery Method Room Air Weight: 61.1 kg Body Mass Index (BMI) 21.6 Intake & Output: Intake and Output for Last 24 Hours 02/05/21 02/06/21 02/07/21 23:59 23:59 23:59 Intake Total 275.67 / 285.67 1441.67 / 1441.67 Output Total 150 / 150 Balance 125.67 / 135.67 1441.67 / 1441.67 Lab / Micro Data Result Diagrams: 02/07/21 04:48 02/07/21 04:48 Labs: Laboratory Results - last 24 hr 02/06/21 11:58: Procalcitonin < 0.04 02/06/21 14:15: Troponin I High Sens 46 02/06/21 14:15: Magnesium 2.3 02/06/21 20:29: PT 13.7, INR 1.1, APTT 32.6 02/06/21 20:29: Troponin I High Sens 45 02/07/21 04:48: Sodium 137, Potassium 3.2 L, Chloride 106, Carbon Dioxide 25.0, Anion Gap 6, BUN 10, Creatinine 0.62, Estim Creat Clear Calc 47.60, Est GFR (MDRD) Af Amer 121, Est GFR (MDRD) Non-Af 100, BUN/Creatinine Ratio 16.1, Glucose 106, Calcium 8.1 L, Triglycerides 207 H, Cholesterol 143, LDL Cholesterol 52, VLDL Cholesterol 41 H, HDL Cholesterol 50, TSH 0.78 02/07/21 04:48: WBC 8.0, RBC 4.13 L, Hgb 12.7, Hct 38.5, MCV 93.2, MCH 30.8, MCHC 33.0, RDW Std Deviation 45.6 H, RDW Coeff of Tammy 13.3, Plt Count 334, MPV 9.1, Immature Gran % (Auto) 0.400, Neut % (Auto) 53.9, Lymph % (Auto) 34.6, [place] % (Auto) 9.4, Eos % (Auto) 0.8, Baso % (Auto) 0.9, Absolute Neuts (auto) 4.3, Absolute Lymphs (auto) 2.76, Nucleated RBC % 0 02/07/21 04:48: PT 14.4, INR 1.2 Physical Exam Narrative Physical exam: General: Alert, Oriented x3, Cooperative, No apparent distress, Well developed HEENT: Atraumatic Oral: Moist Mucosa Neck: Supple Lungs: Clear to auscultation Cardiovascular: HS I+II, regular, no murmurs Abdomen: Bowel Sounds Present, Soft, Non Tender Extremities: No edema Skin: No rashes, No breakdown Neurological: Grossly intact Psych/Mental Status: Appropriate Assessment & Plan Assessment/Plan (1) Atrial fibrillation with rapid ventricular response: PLAN: 1. Atrial flutter with RVR, resolved, patient converted to normal sinus rhythm, continue on current Cardizem dose -120 mg p.o. daily, aspirin INR subtherapeutic at 1.2, continue on Coumadin, INR in a.m. 2. Hypokalemia, replaced, recheck in a.m. 3. Hypertension, uncontrolled, will continue to monitor with as needed medications 4. Recent COVID-19 infection status post monoclonal antibody injection Charges/Coding Visit Charges Inpatient E&M: 44726 Subs Hosp L2
[2021-02-08] VITALS (8 sets, daily range): BP systolic 142–166; BP diastolic 71–80; PULSE 60–88; RESP 16–18; TEMP 36.3–36.6; O2SAT 95–97
[2021-02-08] MEDS: Enoxaparin 60 MG/0.6 ML Syringe SC (06:44)
[2021-02-08 08:16] LABS: ALB/GLOB Ratio 1.1 RATIO (0.9-2.4); AST(SGOT) 15 U/L (15-37); Alanine Aminotransfer ALT/SGPT 32 U/L (13-56); Albumin, Serum 3.5 g/dL (3.2-5.0); Alkaline Phosphatase 65 U/L (45-117); Anion Gap 7 (5-15); BUN 8 mg/dL (7-18); BUN/Creat Ratio 14.7 RATIO (10-20); Calcium,Total 8.9 mg/dL (8.5-10.1); Chloride 103 mmol/L (98-107); Creatinine, Serum 0.55 mg/dL (0.55-1.02); EST Glomerular Filtration Rate 117 mL/min (>60); Est Glom Filt Rate - Afr Amer 141 mL/min (>60); Globulin 3.1 g/dL (2.2-4.2); Glucose 112 mg/dL (74-106); Potassium 3.5 mmol/L (3.5-5.1); Protein, Total 6.6 g/dL (6.4-8.2); Sodium Level 135 mmol/L (136-145)
[2021-02-08 08:41] LABS: International Normalized Ratio 1.5; Prothrombin Time (Protime)PT. 17.4 SECONDS (11.7-14.9)
[2021-02-08] MEDS: Potassium Chloride Oral Tablet 20 MEQ PO (09:02)
[2021-02-08] MEDS: Pantoprazole Sodium 20 MG Tablet PO (09:02)
[2021-02-08] MEDS: Cholecalciferol (VIT D3) 25 MCG TABLET (1,000 UNITS) PO (09:02)
[2021-02-08] MEDS: dilTIAZem CD 120 MG Capsule PO (09:02)
[2021-02-08] MEDS: Aspirin E.C. 81 MG Tablet PO (09:02)
--- NOTE | 2021-02-08 12:24 | DCINST_ITS ---
Discharge Instructions Diet Discharge Diet: Low fat / Low cholesterol and 2000 mg Sodium Diet Activity Discharge Activity: Return to Normal Activity Follow Up Care Test Results: Test results from this visit will be discussed in further detail at your follow-up appointment, if applicable. Discharge Plan Admission Admit Date/Time: 02/06/21 17:35 Primary Reason for Your Visit: A. flutter with RVR Attending Provider: Jessica Earl Primary Care Provider: Vivian Payne Instructions Additional Instructions / Restrictions: Take note of changes to your medications. Follow-up with your primary care doctor within 1-2 weeks Discharge Orders/Prescriptions Prescriptions: New warfarin [Jantoven] 5 mg Tablet 5 mg PO DINNER 30 Days Qty: 30 RF: 0 diltiazem HCl 120 mg Capsule,Extended Release 24hr 120 mg PO DAILY 30 Days Qty: 30 RF: 0 Continued esomeprazole magnesium 20 MG capsule 20 mg PO DAILY RF: 0 potassium chloride 10 mEq capsule, extended release 20 meq PO DAILY RF: 0 cholecalciferol (vitamin D3) [Vitamin D3] 25 mcg (1,000 unit) Capsule 25 mcg PO DAILY RF: 0 digestive enzymes combo no.7 Capsule 1 cap PO TIDCM RF: 0 Discontinued aspirin 81 MG tablet,delayed release (DR/EC) 81 mg PO DAILY RF: 0 Probiotic 10 billion cell Capsule 10,000 mmu cells PO TIDCM RF: 0 diltiazem HCl 60 mg tablet 60 mg PO DAILY RF: 0 Referrals / Follow Up: Vivian Payne DO [Primary Care Provider] - In 1 Week Tania Nieto PA [PHYSICIAN DIGITAL PHOTOGRAPHIC PRINTER] - Within 2 Weeks Disposition Disposition (needs filled in before D/C Order can be placed): Home, Self Care
--- NOTE | 2021-02-08 12:29 | CASEMGMT ---
Pt does not qualify for home oxygen. This RN CM to room to discuss discharge plan and pt declines need for any further resources. Pt encouraged by Dr. Earl to f/u for grief counseling as she(physician/pt) feel that pt has never fully dealt with 's from 5years ago and pt has anxiety with any medical concerns. Pt's daughter at bedside and agrees. Pt provided list of counseling centers and pt aware to discuss with Dr. Payne as well, voices understanding. Pt states concerns with diet and Jeny, parish nurse, into room to discuss with pt. Pt voices no further questions/concerns/needs. SStaten RN CM
--- NOTE | 2021-02-08 12:31 | NURSING ---
Assisted pt to ambulate in hallway to check HR. HR low 80's and then increased to 102 with exertion once pt had walked back and forth in hallway.SPO2 stayed at 98% the entire time on room air.
--- NOTE | 2021-02-08 12:50 | DS.PCM_ITS ---
Providers Date of Admission: 02/06/21 Date of Discharge: 02/09/21 Primary Care Physician: Dr. Vivian Payne DO Reason For Visit: A FLUTTER WITH RVR Diagnosis Discharge Diagnosis (1) Atrial fibrillation with rapid ventricular response: Status: Resolved Code(s): I48.91 - Unspecified atrial fibrillation (2) Hypokalemia: Status: Resolved Code(s): E87.6 - Hypokalemia (3) Uncontrolled hypertension: Status: Acute Code(s): I10 - Essential (primary) hypertension Medications at Discharge Home Medications esomeprazole magnesium 20 mg PO DAILY 02/27/19 potassium chloride 20 meq PO DAILY 01/05/21 cholecalciferol (vitamin D3) [Vitamin D3] 25 mcg PO DAILY 02/06/21 digestive enzymes combo no.7 1 cap PO TIDCM 02/06/21 diltiazem HCl 120 mg PO DAILY 30 Days #30 cap 02/08/21 warfarin [Jantoven] 5 mg PO DINNER 30 Days #30 tab 02/08/21 Hospital Course Operations None Procedures None Summary of Care Provided Minutes Spent on Discharge: 50 Hospital Course: 70-year-old female with past medical history of chronic atrial fibrillation status post RFA ablation/EP study in 1999 2003 comes in with complaints of palpitations and shortness of breath. She recently had Covid. She is now on oxygen. She admitted to having palpitations with worsening shortness of breath. She was started on Cardizem bolus as well as IV metoprolol. Patient developed rash on her left foot with itchiness after given metoprolol. She has similar reactions to beta-blockers. Rash resolved with Benadryl. Admitting EKG showed atrial flutter 1st-1 conduction. Chest x-ray showed persistent right lung infiltrates from recent Covid. Of note is that she had monoclonal antibodies 2 weeks after. Patient was admitted to the [facility] floor continued on Cardizem drip. Heart rate improved. She converted to normal sinus rhythm. She was transitioned to Cardizem CD 120 mg daily and she got bradycardic. Her Cardizem dose was changed to 30 mg daily. Patient had episodes of anxiety with elevated blood pressure. Changes were made to her medication. She was offered to be started on anxiolytics. Patient declined. She was recommended to follow-up in the outpatient with counseling. Patient stated that she felt to have a stigmata if she started on anxiety medication. Her daughter was at the bedside,. Reassurance is given. Orthostatic vitals was negative. Patient was ambulated around the unit with no worsening tachycardia. She will follow-up with her primary care doctor and tar heater within 2 weeks Physical Exam Narrative Physical exam: General: Alert, Oriented x3, Cooperative, No apparent distress, Well developed HEENT: Atraumatic Oral: Moist Mucosa Neck: Supple Lungs: Clear to auscultation Cardiovascular: HS I+II, regular, no murmurs Abdomen: Bowel Sounds Present, Soft, Non Tender Extremities: No edema Skin: No rashes, No breakdown Neurological: Grossly intact Psych/Mental Status: Appropriate Weight / BMI Weight Weight: 61.1 kg Body Mass Index (BMI) 21.6 ABG / Lab / Microbiology Data Result Diagrams: 02/07/21 04:48 02/08/21 06:30 Laboratory: Laboratory Results - last 24 hr 02/08/21 06:30: PT 17.4 H, INR 1.5 02/08/21 06:30: Sodium 135 L, Potassium 3.5, Chloride 103, Carbon Dioxide 25.0, Anion Gap 7, BUN 8, Creatinine 0.55, Estim Creat Clear Calc 47.60, Est GFR (MDRD) Af Amer 141, Est GFR (MDRD) Non-Af 117, BUN/Creatinine Ratio 14.7, Glucose 112 H, Calcium 8.9, Total Bilirubin 0.50, AST 15, ALT 32, Alkaline Ph osphatase 65, Total Protein 6.6, Albumin 3.5, Globulin 3.1, Albumin/Globulin Ratio 1.1 D/C Instructions Discharge Diet: Low fat / Low cholesterol and 2000 mg Sodium Diet Meaningful Use Info Meaningful Use Diagnoses (Choose all that apply): None applicable Discharge Plan Admission Admit Date/Time: 02/06/21 17:35 Primary Reason for Your Visit: Jf. geetha with RVR Attending Provider: Jessica Earl Primary Care Provider: Vivian Payne Instructions Additional Instructions / Restrictions: Take note of changes to your medications. Follow-up with your primary care doctor within 1-2 weeks Discharge Orders/Prescriptions Prescriptions: New warfarin [Jantoven] 5 mg Tablet 5 mg PO DINNER 30 Days Qty: 30 RF: 0 diltiazem HCl 120 mg Capsule,Extended Release 24hr 120 mg PO DAILY 30 Days Qty: 30 RF: 0 Continued esomeprazole magnesium 20 MG capsule 20 mg PO DAILY RF: 0 potassium chloride 10 mEq capsule, extended release 20 meq PO DAILY RF: 0 cholecalciferol (vitamin D3) [Vitamin D3] 25 mcg (1,000 unit) Capsule 25 mcg PO DAILY RF: 0 digestive enzymes combo no.7 Capsule 1 cap PO TIDCM RF: 0 Discontinued aspirin 81 MG tablet,delayed release (DR/EC) 81 mg PO DAILY RF: 0 Probiotic 10 billion cell Capsule 10,000 mmu cells PO TIDCM RF: 0 diltiazem HCl 60 mg tablet 60 mg PO DAILY RF: 0 Referrals / Follow Up: Vivian Payne DO [Primary Care Provider] - In 1 Week Tania Nieto PA [PHYSICIAN MINUTE CLERK FOR BASIC TRAFFIC] - Within 2 Weeks Disposition Disposition (needs filled in before D/C Order can be placed): Home, Self Care Charges/Coding Visit Charges Inpatient E&M: 24413 Disch Hosp
== END 2021-02-08 13:59 | disposition home or self-care (01) | DRG 310 ==
LOC: ED 14:37 → PCU 17:53
PROVIDERS: Family Medicine; Admitting Provider Internal Medicine; Emergency Provider Student in an Organized Health Care Education/Training Program; PCP Family Medicine; Referring Provider Internal Medicine; Visit Provider Internal Medicine
DX: I48.19 Other persistent atrial fibrillation (principal); I48.92 Unspecified atrial flutter; K21.9 Gastro-esophageal reflux disease without esophagitis; I10 Essential (primary) hypertension; E87.6 Hypokalemia; Z87.19 Personal history of other diseases of the digestive system; Z86.16 Personal history of COVID-19; Z87.01 Personal history of pneumonia (recurrent); Z79.82 Long term (current) use of aspirin; Z79.899 Other long term (current) drug therapy
CPT/HCPCS: 36415; 71045; 80048; 80053; 80061; 83735; 84145; 84443; 84484; 85025; 85610; 85730; 93005; 99251; 99285; J7030; A4216; G0463; J0153

== ENCOUNTER → 2021-03-23 12:59 | Outpatient (CLI) | payer MEDICARE, OTHER, SELFPAY | PROVIDERS: PCP Family Medicine; Referring Provider Nurse Practitioner Family; Visit Provider Nurse Practitioner Family | DX: I48.0 Paroxysmal atrial fibrillation (principal) | CPT/HCPCS: 93225; 93226 ==

== ENCOUNTER 2021-05-30 09:39 | Emergency (ER) | payer MEDICARE, OTHER, SELFPAY ==
[2021-05-30 09:40] VITALS: BP 109/58; PULSE 65; RESP 18; TEMP 36.6; O2SAT 100; BMI 20.3
--- NOTE | 2021-05-30 10:04 | CT_ITS ---
STUDY: CT BRAIN WITHOUT CONTRAST REASON FOR EXAM: Female, 71 years old. Confusion following a fall. RADIATION DOSAGE (If Supplied By Facility): CTDIvol = ( 44.99 ) mGy, DLP = ( 762.36 ) mGycm TECHNIQUE: Transaxial CT imaging of the brain was performed without administration of intravenous contrast material. Individualized dose optimization techniques were used for this CT. COMPARISON: Comparison is made with prior study dated 01/07/2021. FINDINGS: Normal soft tissue structures. Normal calvarium. There is mild cerebral atrophy with widening of the extra-axial spaces and ventricular dilatation. Normal white matter tracts of the cerebral hemispheres. Tiny old lacunar infarct in the insular cortex of both temporal lobes. Normal brainstem. Normal cerebellum. There is no intracranial hemorrhage. There are no findings of an acute ischemic infarction. Atherosclerotic calcification of the cavernous portions of the internal carotid arteries bilaterally. Normal visualized paranasal sinuses. CT/Brain/Head without Contrast IMPRESSION: Chronic involutional changes of the brain. Electronically Signed: Dmitri Riley MD at 10:47 EST , Service support ,
--- NOTE | 2021-05-30 10:04 | EKG12_ITS ---
Test Reason : Blood Pressure : / mmHG Vent. Rate : 054 BPM Atrial Rate : 054 BPM P-R Int : 132 ms QRS Dur : 078 ms QT Int : 466 ms P-R-T Axes : 075 034 100 degrees QTc Int : 441 ms Sinus bradycardia with sinus arrhythmia Low voltage QRS (Limb Leads) Nonspecific ST and T wave abnormality Abnormal ECG Confirmed by RENETTA HANKS, CHER ([id number]), online editor WILLIAM CASEY ([id number]) on 06/01/2021 9:40:02 AM Referred By: CALEB Confirmed By:CHER JACKSON MD
--- NOTE | 2021-05-30 10:06 | EDS_ITS ---
HPI History of Present Illness Chief Complaint: Confusion Narrative Narrative: Patient presenting with her daughter for evaluation. Apparently their primary care physician Dr. 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 Patient has recovered since then but her daughter states that she has intermittent episodes of disorientation. This has been happening over the course of the last 6 months. Patient has a history of atrial fibrillation but is no longer on Cardizem 60 mg p.o. 3 times daily and is no longer on Coumadin. Patient's heart rate has been in a regular rate and rhythm. Patient states that she feels otherwise well. The daughter reports that she has had lower extremity swelling which has been worsening, and she wants her feet evaluated for infections. The daughter also states that the patient had a fall on Sunday in the shower and was having difficulty getting up and sat in the water. She has had no falls since then is been able to get up and ambulate. They state that the patient's primary care provider has not checked lab work since February. The patient has not had a Mini-Mental state exam. Her daughter states this is definitely not dementia. It is unclear whether the patient injured her head the other day when she fell. She has not had any nausea or vomiting. She states she had a mild headache yesterday but did not have one at the time of the incident and has not had one today. She has not had a fever, chills, nausea, vomiting, diarrhea. She states he does not have chest pain or shortness of breath. He has no visual complaints. 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 atrial fibrillation Gastritis GERD (gastroesophageal reflux disease) GERD (gastroesophageal reflux disease) Irregular heart beat Non-smoker Paroxysmal atrial fibrillation Home Medications esomeprazole magnesium 20 mg PO DAILY 02/27/19 [History Last Taken 02/06/21] potassium chloride 20 meq PO DAILY 01/05/21 [History Last Taken 02/06/21] warfarin [Jantoven] 5 mg PO DINNER 30 Days #30 tab 02/08/21 [Rx Last Taken Unknown] digestive enzymes combo no.7 1 cap PO BID cap 03/03/21 [History Last Taken Unknown] diltiazem HCl 60 mg tablet 30 mg PO TID tab 04/06/21 [History Last Taken Unknown] Allergy/AdvReac Type Severity Reaction Status Date / Time diltiazem Allergy Severe itching Verified 05/30/21 09:43 and swelling procainamide Allergy Unknown Unknown Verified 05/30/21 09:43 ciprofloxacin [From Cipro] Allergy Other Verified 05/30/21 09:43 metronidazole [From Flagyl] Allergy Diarrhea Verified 05/30/21 09:43 Sulfa (Sulfonamide Allergy Anaphylaxis Verified 05/30/21 09:43 Antibiotics) sotalol AdvReac Unknown Lethargic Verified 05/30/21 09:43 amiodarone AdvReac Other Verified 05/30/21 09:43 flecainide AdvReac Other Verified 05/30/21 09:43 metoprolol AdvReac Itching Verified 05/30/21 09:43 propafenone [From Rythmol] AdvReac Other Verified 05/30/21 09:43 tramadol AdvReac Vomiting Verified 05/30/21 09:43 ALMOST ALL HEART MEDS Allergy Unknown Uncoded 05/30/21 09:43 Surgical History Hx of colectomy Social History Smoking Status: Never smoker substance use type: does not use ROS ROS ED Constitutional Constitutional ED: Denies chills, fever(s) or subjective Eyes Eyes: Denies blurry vision or change in vision ENT ENT ED: Denies rhinorrhea or sore throat Cardiovascular Cardiovascular: Denies chest pain or palpitations Respiratory/Chest Respiratory/Chest: Denies cough or dyspnea Gastrointestinal Gastrointestinal: Denies abdominal pain, diarrhea, nausea or vomiting Genitourinary Genitourinary ED: Denies dysuria or hematuria Musculoskeletal Musculoskeletal: Reports other Details: Lower extremity edema bilaterally ; Denies arthralgias, myalgias or neck pain Integumentary Reports other Details: Scaling, dry skin Neurologic Neurologic: Reports headache(s); Denies paresthesias or weakness Psychiatric Psychiatric: Denies anxiety or depression EXAM Physical Exam Const Vital Signs: 05/30/21 09:40 05/30/21 10:04 05/30/21 10:11 Temperature 98 F 98 F Temperature Source Temporal Temporal Pulse Rate 65 55 L Respiratory Rate 18 19 H Blood Pressure 109/58 L 107/57 L Blood Pressure Mean 75 73 Pulse Ox 100 100 Oxygen Delivery Method Room Air Room Air Room Air 05/30/21 11:47 05/30/21 12:19 05/30/21 13:06 Temperature 97.4 F L 97.4 F L 98.4 F Temperature Source Temporal Temporal Temporal Pulse Rate 51 L 62 60 Respiratory Rate 18 18 18 Blood Pressure 119/60 123/60 H 125/67 H Blood Pressure Mean 79 81 86 Pulse Ox 96 98 97 Oxygen Delivery Method Room Air Room Air Room Air Positive well nourished General Appearance ED: NAD HEENT Negative for trauma Eyes PERRL and EOMs intact bilaterally General Eye ED: Negative for pale conjunctiva or scleral icterus Neck No no lymphadenopathy and No supple Resp normal respiratory effort and clear to auscultation bilaterally Cardio regular rate and regular rhythm GI normal to inspection, nondistended, normoactive bowel sounds Extremity General Extremety ED: Yes edema; Negative for tenderness General Extremity: edema Neuro oriented x3 and CN's II-XII intact bilaterally Sensorium / Orientation: alert Motor Exam: strength 5/5 throughout Psych mental status grossly normal Attitude: No agitated Mood & Affect: Negative for anxious Skin Skin Narrative: Dry scaling rash in on the plantar surface of the feet on the heels as well as on the fat pads in the medial aspect of the great toes. No erythema, lacerations. The skin is cracked and dry in these regions. MDM MDM MDM Narrative Medical decision making narrative: 71-year-old female presenting with intermittent confusion. This is documented in the medical record. 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 Patient did have 1 fall but did not have any significant injury and she is been up walking and getting around since then. She is eating and drinking normally. She is making normal urine and stool. She denies any complaints currently. Her CBC and BMP are within normal limits. High- sensitivity troponin is 60 4 repeat high-sensitivity troponin is 54 at 2 hours and I believe this rules her out for ACS. Her EKG is sinus rhythm with a ventricular rate of 54 bpm without sign of ischemic change. Chest x-ray on my interpretation shows no acute cardiopulmonary process and the radiologist does agree. Patient's BNP is slightly elevated 264. Perhaps this is why she has some lower extremity edema which is mild. This has been progressing over months and I do not believe it is emergent. She does not have any signs of fluid overload in her chest and she is not having any symptoms of dyspnea. Her vital signs are normal and her oxygen is 100% on room air with normal respirations at 18. CT of the brain is negative for acute findings. I counseled the patient on all the work-up. She is counseled to follow-up with her primary care provider for referral for any Covid specialist that she would need. Patient and daughter are understanding and are able for discharge home. Impression: 1. Intermittent confusion 2. Lower extremity edema 3. History of fall Lab Data Attestation: I reviewed the patient's lab results. Labs: Laboratory Results - last 24 hr 05/30/21 05/30/21 05/30/21 10:15 10:15 10:15 WBC 5.8 RBC 4.45 Hgb 12.8 Hct 40.7 MCV 91.5 MCH 28.8 MCHC 31.4 L RDW Std Deviation 43.9 RDW Coeff of Tammy 13.1 Plt Count 203 MPV 10.6 Immature Gran % (Auto) 0.200 Neut % (Auto) 72.4 H Lymph % (Auto) 20.2 Armstrong % (Auto) 6.4 Eos % (Auto) 0.3 Baso % (Auto) 0.5 Absolute Neuts (auto) 4.2 Absolute Lymphs (auto) 1.17 Nucleated RBC % 0 Sodium 141 Potassium 3.8 Chloride 106 Carbon Dioxide 29.0 Anion Gap 6 BUN 13 Creatinine 0.72 Estim Creat Clear Calc 45.88 Est GFR (MDRD) Af Amer 102 Est GFR (MDRD) Non-Af 84 BUN/Creatinine Ratio 18.0 Glucose 88 Calcium 8.4 L Troponin I High Sens 64 H B-Natriuretic Peptide 264.1 H 05/30/21 11:49 WBC RBC Hgb Hct MCV MCH MCHC RDW Std Deviation RDW Coeff of Tammy Plt Count MPV Immature Gran % (Auto) Neut % (Auto) Lymph % (Auto) Armstrong % (Auto) Eos % (Auto) Baso % (Auto) Absolute Neuts (auto) Absolute Lymphs (auto) Nucleated RBC % Sodium Potassium Chloride Carbon Dioxide Anion Gap BUN Creatinine Estim Creat Clear Calc Est GFR (MDRD) Af Amer Est GFR (MDRD) Non-Af BUN/Creatinine Ratio Glucose Calcium Troponin I High Sens 54 B-Natriuretic Peptide Radiography Diagnostic Testing: Clinical Impression(s) from Imaging Studies Brain CT 05/30/21 10:04 IMPRESSION: Chronic involutional changes of the brain. Electronically Signed: Dmitri Riley MD at 10:47 EST , Service support , Chest X-Ray 05/30/21 10:30 IMPRESSION: Hyperinflation. Findings suggest some mild linear atelectasis at the lung bases. Electronically Signed: Dmitri Riley MD at 10:48 EST , Service support , Discharge Plan Triage Chief Complaint: Confusion ED Provider: Luan Sandhu Dx/Rx/DC Orders Instructions: ED ALOC Prescriptions: No Action esomeprazole magnesium 20 MG capsule 20 mg PO DAILY RF: 0 potassium chloride 10 mEq capsule, extended release 20 meq PO DAILY RF: 0 warfarin [Jantoven] 5 mg Tablet 5 mg PO DINNER 30 Days Qty: 30 RF: 0 digestive enzymes combo no.7 Capsule 1 cap PO BID RF: 0 diltiazem HCl 60 mg tablet 30 mg PO TID RF: 0 Primary Care Provider: Vivian Payne Referrals: Vivian Payne DO [Primary Care Provider] - Disposition Disposition: Home, Self Care
[2021-05-30 10:11] VITALS: BP 107/57; PULSE 55; RESP 19; TEMP 36.6; O2SAT 100
[2021-05-30 10:26] LABS: Absolute Lymphocyte Count 1.17 X10^3/uL (0.83-4.51); Absolute Neutrophil Count 4.2 X10^3/uL (2.0-7.7); Basophil# 0.03 X10^3/uL; Basophil% 0.5 % (0-1); Eosinophil# 0.02 X10^3/uL; Eosinophils% 0.3 % (0-5); Hematocrit 40.7 % (37-47); Hemoglobin 12.8 g/dL (12.0-15.0); Lymphocyte # 1.17 X10^3/ul (0.83-4.51); Lymphocyte % 20.2 % (19-41); Mean Corp Hgb Conc 31.4 g/dL (32-36); Mean Corpuscular Hgb 28.8 pg (27.0-32.0); Mean Corpuscular Volume 91.5 fL (81-99); Mean Platelet Vol. 10.6 fl (6.2-12.0); Monocyte# 0.37 X10^3/uL; Monocyte% 6.4 % (0-10); NRBC Flagged by Analyzer 0 % (0-5); Neutrophil # 4.19 X10^3/uL (2.7-7.7); Neutrophil % 72.4 % (47-70); POSITIVE COUNT YES; Platelet Count 203 K/mm3 (150-450); RBC Distribution Width CV 13.1 % (11.6-14.6); RBC Distribution Width SD 43.9 fl (35.1-43.9); Red Blood Count 4.45 M/mm3 (4.2-5.4); White Blood Count 5.8 K/mm3 (4.4-11.0)
[2021-05-30 10:30] LABS: Differential Indicated SCAN CRITERIA MET
--- NOTE | 2021-05-30 10:30 | RAD_ITS ---
STUDY: X-RAY CHEST REASON FOR EXAM: Female, 71 years old. Lower extremity edema TECHNIQUE: Single AP portable view of the chest. COMPARISON: Comparison is made with prior study dated 02/06/2021. FINDINGS: EKG electrodes are seen. There is hyperinflation of the lungs consistent with chronic obstructive lung disease (COPD). Minimal increased signal markings at the lung bases suggestive of bleeding atelectasis. There is no demonstrated pleural abnormality. Normal size heart. Normal mediastinum and phyllis. Normal visualized pulmonary arteries. There is atherosclerotic calcification of the aortic arch with tortuosity. Normal visualized thoracic spine. Normal visualized ribs, clavicles, and shoulders. There is no demonstrated abnormality of the visualized soft tissue structures of the upper abdomen. RAD/Chest 1 View (Portable) IMPRESSION: Hyperinflation. Findings suggest some mild linear atelectasis at the lung bases. Electronically Signed: Dmitri Riley MD at 10:48 EST , Service support ,
[2021-05-30 10:44] LABS: Anion Gap 6 (5-15); BUN 13 mg/dL (7-18); Calcium,Total 8.4 mg/dL (8.5-10.1); Chloride 106 mmol/L (98-107); Creatinine, Serum 0.72 mg/dL (0.55-1.02); EST Glomerular Filtration Rate 84 mL/min (>60); Est Glom Filt Rate - Afr Amer 102 mL/min (>60); Estimated Creatinine Clearance 45.88 ml/min; Glucose 88 mg/dL (74-106); Potassium 3.8 mmol/L (3.5-5.1); Sodium Level 141 mmol/L (136-145); Troponin-I HS 64 pg/mL (3.0-54.0)
[2021-05-30 11:11] LABS: BNP,B-Type NATRIURETIC PEPTIDE 264.1 pg/mL (0-100)
[2021-05-30 11:47] VITALS: BP 119/60; PULSE 51; RESP 18; TEMP 36.3; O2SAT 96
[2021-05-30 12:12] LABS: Troponin-I HS 54 pg/mL (3.0-54.0)
[2021-05-30 12:19] VITALS: BP 123/60; PULSE 62; RESP 18; TEMP 36.3; O2SAT 98
[2021-05-30 13:06] VITALS: BP 125/67; PULSE 60; RESP 18; TEMP 36.9; O2SAT 97
[2021-05-30 13:15] VITALS: BP 125/67; PULSE 63; RESP 12; TEMP 37; O2SAT 99
== END 2021-05-30 13:27 | disposition home or self-care (01) ==
PROVIDERS: Emergency Provider Student in an Organized Health Care Education/Training Program; PCP Family Medicine
DX: R41.0 Disorientation, unspecified (principal); R60.0 Localized edema; Z91.81 History of falling; I48.0 Paroxysmal atrial fibrillation; M79.89 Other specified soft tissue disorders; K21.9 Gastro-esophageal reflux disease without esophagitis; Z79.899 Other long term (current) drug therapy; Z86.16 Personal history of COVID-19
CPT/HCPCS: 36415; 70450; 71045; 80048; 83880; 84484; 85025; 93005; 99283; A4216

== ENCOUNTER 2021-08-26 09:43 | Outpatient (CLI) | payer MEDICARE, OTHER, SELFPAY ==
[2021-08-26 09:53] LABS: Bacteria 0 SEEN /hpf (None Seen); Mucous, Urine 0 SEEN /hpf (<or=2+); Red Blood Cells-Urine 0 SEEN /hpf (0-5); Squamous Epithelial Cells - UA 0 SEEN /hpf (5-10)
[2021-08-26 12:31] LABS: Color, Urine Yellow (Yellow); Glucose, Dipstick Normal (Normal); Ketone-Dipstick Negative (Negative); Leukocyte Esterase-Dipstick Negative /ul (Negative); Nitrite-Dipstick Negative (Negative); Occult Blood-Urine 10 /ul (Negative); Protein-Dipstick Negative (Negative); Urine Bilirubin Dipstick Negative (Negative); Urine Clarity Sl. Cloudy (Clear); Urine Urobilinogen Normal (Normal)
[2021-08-26 12:32] LABS: Erythrocyte Sedimentation Rate 26 mm/hr (0-30)
[2021-08-26 12:34] LABS: Hematocrit 38.9 % (37-47); Hemoglobin 11.8 g/dL (12.0-15.0); Mean Corp Hgb Conc 30.3 g/dL (32-36); Mean Corpuscular Hgb 26.1 pg (27.0-32.0); Mean Corpuscular Volume 86.1 fL (81-99); Mean Platelet Vol. 9.6 fl (6.2-12.0); Platelet Count 418 K/mm3 (150-450); RBC Distribution Width SD 43.8 fl (35.1-43.9); Red Blood Count 4.52 M/mm3 (4.2-5.4); White Blood Count 6.6 K/mm3 (4.4-11.0)
[2021-08-26 12:42] LABS: Vitamin B12 258 pg/mL (211-911)
[2021-08-26 12:58] LABS: ALB/GLOB Ratio 0.9 RATIO (0.9-2.4); AST(SGOT) 10 U/L (15-37); Alanine Aminotransfer ALT/SGPT 12 U/L (13-56); Albumin, Serum 3.1 g/dL (3.2-5.0); Alkaline Phosphatase 107 U/L (45-117); Anion Gap 3 (5-15); BUN 15 mg/dL (7-18); BUN/Creat Ratio 23.2 RATIO (10-20); Chloride 104 mmol/L (98-107); Creatinine, Serum 0.65 mg/dL (0.55-1.02); EST Glomerular Filtration Rate 96 mL/min (>60); Est Glom Filt Rate - Afr Amer 116 mL/min (>60); Globulin 3.6 g/dL (2.2-4.2); Glucose 99 mg/dL (74-106); Potassium 4.1 mmol/L (3.5-5.1); Protein, Total 6.7 g/dL (6.4-8.2); Sodium Level 136 mmol/L (136-145); Thyroid Stim Hormone (TSH) 2.53 uIU/mL (0.358-3.74)
[2021-08-26 13:00] LABS: White Blood Cells 0-5 SEEN /hpf (0-5)
[2021-08-28 15:47] LABS: ANTINUCLEAR ANTIBODIES DIRECT Negative (Negative)
[2021-09-05 21:18] LABS: Vitamin B1, Thiamine 114.5 nmol/L (66.5-200.0)
== END 2021-08-26 23:59 | disposition home or self-care (01) ==
LOC: MTLAB 09:46
PROVIDERS: PCP Family Medicine; Referring Provider Psychiatry & Neurology Neurology; Visit Provider Psychiatry & Neurology Neurology
DX: R41.0 Disorientation, unspecified (principal); I48.0 Paroxysmal atrial fibrillation; R46.89 Other symptoms and signs involving appearance and behavior; I67.9 Cerebrovascular disease, unspecified; F32.A Depression, unspecified; F41.9 Anxiety disorder, unspecified
CPT/HCPCS: 80053; 81001; 82533; 82607; 82746; 84425; 84443; 85027; 85652; 86038; 86225; 86235; 87077; 87086; 87088; 87186

== ENCOUNTER 2022-04-08 06:47 | Emergency (ER) | payer MEDICARE, OTHER, SELFPAY ==
[2022-04-08] VITALS (13 sets, daily range): BP systolic 74–127; BP diastolic 37–103; PULSE 45–69; RESP 10–14; TEMP 34.2–35.9; O2SAT 77–100; BMI 19.8
--- NOTE | 2022-04-08 06:57 | RAD_ITS ---
INDICATION: trauma EXAMINATION/TECHNIQUE: X-RAY - LEFT XR Foot Views: 4 VIEWS COMPARISON: None. FINDINGS: SOFT TISSUES: No soft tissue swelling or gas. No radiopaque foreign body. BONES/JOINTS: Small nondisplaced intra-articular fracture of the base of the distal phalanx of the great toe. The remainder of the osseous structures appear intact.. Normal alignment. Degenerative arthrosis of the first metatarsophalangeal joint. Posterior and plantar calcaneal spurs.. No sclerotic or destructive changes observed. RAD/Foot min 3 Views IMPRESSION: 1. Small intra-articular fracture of the base of the distal phalanx of the great toe. 2. Calcaneal spurs. Electronically Signed: Anand Caro MD at 8:31 EDT ,
--- NOTE | 2022-04-08 06:57 | RAD_ITS ---
INDICATION: pain/trauma EXAMINATION/TECHNIQUE: X-RAY - LEFT XR Tibia/Fibula Views 4 VIEWS COMPARISON: None. FINDINGS: SOFT TISSUES: Soft tissue swelling. No radiopaque foreign body. BONES/JOINTS: Comminuted oblique displaced fracture of the tibial shaft.. Preservation of the joint space. RAD/Tibia & Fibula 2 Views IMPRESSION: Comminuted oblique displaced fracture of the distal fibular shaft. Soft tissue swelling. Electronically Signed: Anand Caro MD at 8:38 EDT ,
--- NOTE | 2022-04-08 06:57 | CT_ITS ---
INDICATION: fall, trauma EXAMINATION: CT CERVICAL SPINE - CT Spine Cervical W/O Contrast Injection TECHNIQUE: Helically acquired images were obtained of the cervical spine. 2D reformatted images were reviewed. A radiation dose optimization technique was used for this scan. IV Contrast dosage and agent: None. COMPARISON: None. FINDINGS: VERTEBRAE: No fracture or traumatic subluxation. No discrete lytic or blastic abnormality. Rightward torticollis. Normal craniocervical junction and cervicothoracic junction. DISCS and SPINAL CANAL: Degenerative changes of the atlantoaxial joint. Narrowing of C5-C6 and C6-C7 disc spaces. Posterior lateral jugular spurs bilaterally with narrowing of the bilateral neural foramina at multiple levels. No critical bony stenosis. NECK SOFT TISSUES: No prevertebral soft tissue swelling. There is no cervical adenopathy. LUNG APICES: Partially visualized right apical opacity/fibrotic changes. No evidence of pneumothorax. CT/Spine Cervical without Contras IMPRESSION: No evidence of acute cervical spinal fracture or subluxation. Electronically Signed: Anand Caro MD at 8:26 EDT ,
--- NOTE | 2022-04-08 06:57 | RAD_ITS ---
INDICATION: fall, confused EXAMINATION/TECHNIQUE: X-RAY - XR Chest 1 View COMPARISON: None. FINDINGS: LINES/DEVICES: None. LUNGS: No consolidation, edema or effusion. No pneumothorax. MEDIASTINUM AND CARDIOVASCULAR STRUCTURES: Cardiac silhouette not enlarged. Central airways and mediastinal contour are unremarkable. BONES AND SOFT TISSUES: Unremarkable. RAD/Chest 1 View (Portable) IMPRESSION: No radiographic evidence of acute cardiopulmonary disease. Electronically Signed: Anand Caro MD at 8:33 EDT ,
--- NOTE | 2022-04-08 06:57 | CT_ITS ---
INDICATION: altered mental status EXAMINATION: CT BRAIN - CT Head or Brain W/O Contrast Injection TECHNIQUE: Multiple axial images were obtained of the head without intravenous contrast. A radiation dose optimization technique was used for this scan. IV Contrast dosage and agent: None. COMPARISON: 01/07/2021. FINDINGS: BRAIN PARENCHYMA: No intra- or extra-axial hemorrhage. Small hypodensities in the inferior basal ganglia bilaterally likely representing prominent vascular spaces. No intracranial mass or mass effect. There is preservation of the ramos/white matter interface. Posterior fossa structures are unremarkable. CSF SPACES: Mild prominence of the cortical sulci. The ventricles are normal in size and position. No hydrocephalus. Basal cisterns are patent. CALVARIUM, SKULL BASE, PARANASAL SINUSES AND MASTOID AIR CELLS: Clear. No discrete lytic or blastic abnormalities. ORBITS: The globes are grossly unremarkable. The optic nerves are difficult to evaluate on this exam. CT/Brain/Head without Contrast IMPRESSION: No acute intracranial process. Electronically Signed: Anand Caro MD at 8:19 EDT ,
--- NOTE | 2022-04-08 06:57 | RAD_ITS ---
INDICATION: pain, fall EXAMINATION/TECHNIQUE: X-RAY - RIGHT XR Hip Unilateral with Pelvis when performed; VIEWS: 3 views of the pelvis and right hip COMPARISON: None. FINDINGS: SOFT TISSUES: Soft tissue swelling of the right hip. No radiopaque foreign body. BONES/JOINTS: Intratrochanteric fracture of the inferior aspect of the intertrochanteric space in the proximal femoral shaft. Displaced lesser trochanter. Fractures of the right superior and inferior pubic rami. Displaced fracture of the left inferior pubic ramus and the left ischium. Probable fracture of the right ischium. narrowing of hip joints bilaterally. No sclerotic or destructive changes observed. RAD/HIP, UNI W/ Pelvis 2-3 Views IMPRESSION: 1. Displaced fracture of the right hip. 2. Fractures of the pubic rami bilaterally. 3. Fracture of the left ischium. 4. CT scan of the pelvis might be of further value. Electronically Signed: Anand Caro MD at 8:43 EDT ,
--- NOTE | 2022-04-08 06:57 | ED.RN ---
daughter called and updated she is on her way in at this time
--- NOTE | 2022-04-08 06:58 | EKG12_ITS ---
Test Reason : FALL Blood Pressure : / mmHG Vent. Rate : 057 BPM Atrial Rate : 000 BPM P-R Int : 000 ms QRS Dur : 118 ms QT Int : 476 ms P-R-T Axes : 000 075 078 degrees QTc Int : 463 ms Atrial fibrillation with junctional rhythm Non-specific intra-ventricular conduction delay Nonspecific ST abnormality Abnormal ECG Confirmed by IVANIA HANKS, LO ([id number]), newspaper managing editor WILLIAM CASEY ([id number]) on 04/10/2022 9:42:41 AM Referred By: Confirmed By:LO REDD MD
--- NOTE | 2022-04-08 07:04 | EDS_ITS ---
HPI HPI - Fall History of Present Illness Chief Complaint: Fall Informant: EMS Narrative Narrative: Elderly female found in the driveway outside of her home this morning down for an unknown period of time, confused. She is too confused to provide any history, only moaning. Nurses called daughter, who last had contact with her 2129 last night via cell phone texting and she was fine, and she states patient sometimes has problems remembering some things but is usually oriented enough to perform ADLs and take her own medications, which she decided to discontinue less than 1 year ago. She very rarely ventures out of her house on foot; she will go to the [employer] to get paper/mail, but never purposefully/knowingly walk out into her driveway, especially at nighttime which is when she was found. Also states that when the patient has developed infections in the past, she has become extremely confused. Patient arrived via EMS just prior to shift change so I was not able to obtain any history from paramedics. When daughter arrived later, she presented a living will and healthcare power of assistant county attorney, patient declares herself DNR if she is in a terminable or permanently unconscious state. [facility] Medical History Arthritis Atrial fibrillation COVID-19 Electrical isolation of left atrial appendage after cardiac ablation procedure for atrial fibrillation Gastritis Gastrointestinal problem GERD (gastroesophageal reflux disease) GERD (gastroesophageal reflux disease) IBS (irritable bowel syndrome) Irregular heart beat Neuropathy Non-smoker Osteoarthritis Osteopenia Paroxysmal atrial fibrillation Rheumatoid arthritis Seasonal allergies Vision problem Home Medications NK 04/08/22 [History Last Taken Unknown] Allergy/AdvReac Type Severity Reaction Status Date / Time diltiazem Allergy Severe itching Verified 08/23/21 09:58 and swelling procainamide Allergy Unknown Unknown Verified 08/23/21 09:58 ciprofloxacin [From Cipro] Allergy Other Verified 08/23/21 09:58 metronidazole [From Flagyl] Allergy Diarrhea Verified 08/23/21 09:58 Sulfa (Sulfonamide Allergy Anaphylaxis Verified 08/23/21 09:58 Antibiotics) sotalol AdvReac Unknown Lethargic Verified 08/23/21 09:58 amiodarone AdvReac Other Verified 08/23/21 09:58 flecainide AdvReac Other Verified 08/23/21 09:58 metoprolol AdvReac Itching Verified 08/23/21 09:58 propafenone [From Rythmol] AdvReac Other Verified 08/23/21 09:58 tramadol AdvReac Vomiting Verified 08/23/21 09:58 ALMOST ALL HEART MEDS Allergy Unknown Uncoded 08/23/21 09:58 Family History (Updated 08/23/21 @ 10:11 by Dipika Mary) Other Arthritis Breast cancer Colon cancer Depression Myocardial infarction Severe allergy Surgical History Hx of colectomy Social History Smoking Status: Never smoker alcohol intake: never substance use type: does not use ROS ROS ED Review of Systems ROS Unobtainable: due to mental status EXAM Physical Exam Const Vital Signs: 04/08/22 06:49 04/08/22 06:58 04/08/22 07:10 Temperature 95.6 F L 95.7 F L 93.7 F L Temperature Source Temporal Core Pulse Rate 49 L 69 Respiratory Rate 14 14 Respiratory Effort Normal Respiratory Depth Normal Respiratory Pattern Normal Blood Pressure 120/82 H 127/103 H Blood Pressure Mean 94 111 Pulse Ox 77 85 95 Oxygen Delivery Method Room Air Nasal Cannula Room Air Oxygen Flow Rate (L/min) 04/08/22 07:26 04/08/22 07:33 04/08/22 08:19 Temperature 95.7 F L 93.5 F L Temperature Source Core Core Pulse Rate 63 63 46 L Respiratory Rate 10 L 12 11 L Respiratory Effort Respiratory Depth Respiratory Pattern Blood Pressure 110/60 93/62 74/37 L Blood Pressure Mean 76 72 49 Pulse Ox 100 100 Oxygen Delivery Method Room Air Room Air Oxygen Flow Rate (L/min) 04/08/22 08:20 04/08/22 08:38 04/08/22 08:38 Temperature 96.2 F L 96.5 F L 96.5 F L Temperature Source Core Core Pulse Rate 46 L 46 L Respiratory Rate 10 L 11 L Respiratory Effort Respiratory Depth Respiratory Pattern Blood Pressure 87/47 L 87/47 L Blood Pressure Mean 60 60 Pulse Ox 94 Oxygen Delivery Method Room Air Oxygen Flow Rate (L/min) 04/08/22 08:52 04/08/22 08:59 04/08/22 09:00 Temperature 96.6 F L Temperature Source Core Pulse Rate 45 L Respiratory Rate 11 L Respiratory Effort Respiratory Depth Respiratory Pattern Blood Pressure 93/48 L 106/49 L Blood Pressure Mean 63 68 Pulse Ox 92 100 Oxygen Delivery Method Nasal Cannula Nasal Cannula Oxygen Flow Rate (L/min) 2 4 04/08/22 08:56 Temperature 96.5 F L Temperature Source Core Pulse Rate 53 L Respiratory Rate 11 L Respiratory Effort Respiratory Depth Respiratory Pattern Blood Pressure 93/48 L Blood Pressure Mean 63 Pulse Ox 91 Oxygen Delivery Method Nasal Cannula Oxygen Flow Rate (L/min) 4 Positive well nourished and well developed General Appearance ED: well developed and NAD HEENT Reports TM's clear and nasal mucous membranes and turbinates normal atraumatic Face and Sinus: Negative for facial tenderness Tympanic Membrane ED: Yes TM's clear Eyes PERRL and EOMs intact bilaterally Visual Acuity: other Other Details: no entrapment or pain with extraocular movements Neck Neck Narrative: C-collar placed by staff upon arrival. No signs of trauma or step-off. General: Negative for tenderness Chest Wall inspection of chest normal and palpation of chest normal Chest: symmetrical chest wall rise; Negative for crepitus or tenderness Resp normal respiratory effort and clear to auscultation bilaterally Percussion: other equal BS bilat Cardio no murmurs Rate: regular rate Rhythm: regular rhythm GI normal to inspection, nondistended, normoactive bowel sounds, soft to palpation and non-tender GI Narrative: Pelvis stable to AP compression without apparent tenderness Back/Spine Cervical Spine: Negative for cervical spine tenderness Thoracic Spine / Upper Back: Negative for thoracic spinal tenderness Lumbar Spine / Lower Back: Negative for lumbar spinal tenderness Extremity Extremity Narrative: Tender right hip, severe pain with any gentle ranging, and the right lower extremity is shortened and externally rotated. Tender where laceration is at the left lower extremity. There is possibly some crepitance with mobilizing the ankle, patient had pain with removing her shoe on the left foot, but not able to reproduce any pain with passively ranging the left hip, knee, ankle. Other than laceration to the left lower leg no other signs of trauma left lower extremity. Moves both upper extremities without any apparent difficulty, no signs of trauma or tenderness. General Extremety ED: Yes tenderness Neuro CN's II-XII intact bilaterally, moves all extremities, no focal motor deficits and no sensory deficits noted [place] Coma Scale: document GCS findings Spontaneous Localizes to Pain Incomprehensible 11 Sensorium / Orientation: awake and alert Psych Psych Narrative: Not able to evaluate due to significant confusion Skin Skin Narrative: Large open laceration 8cm medial aspect of the left lower leg, proximal to the ankle; full thickness down to muscle, no gross contamination. Lesions: no lesions Rashes: no rashes Sepsis Attestation Sepsis Attestation: Agree w/Sepsis Date exam was performed: 04/08/22 Time exam was performed: 08:10 Possible Source of Sepsis: Genitourinary Sepsis Organ Dysfunction Criteria Present: Lactic Acid > 2 mmol/L and New/Une xplained change in mental status Fluid Resuscitation Fluid resuscitation indicated?: Yes Fluid Resuscitation ordered: 30 ml/kg fluid bolus ordered MDM MDM MDM Narrative Medical decision making narrative: Patient is mildly hypothermic and placed under a warming blanket, temperature- sensing Vázquez catheter was placed so that we could get a urine specimen in a patient with a suspected right hip fracture who is immobile. Blood pressure was 120/82, GCS 11, sent to radiology for CT of the head and cervical spine, which ended up negative, and x-rays. I interpreted the x-rays as follows: Chest x-ray 1 view negative Left foot 3 views nondisplaced chip fracture proximal intra-articular aspect of the great toe distal phalanx Left tib-fib 4 views mildly displaced distal tibia shaft fracture Right hip and pelvis 3 views multiple fractures including the pubic rami bilaterally, intertrochanteric right hip, possibly injury to the left SI joint, but limited evaluation due to rotation Upon returning from radiology the patient was hypotensive in the 80s, we started IV fluid bolus seen and prior to the bolusing starting, her blood pressure was 74/37. This gradually came up with fluid bolusing, second IV was started along with a second liter, and after getting the patient accepted to [facility], at 0900, her blood pressure is 106/49. I did a FAST exam, it is negative. This includes lack of a pericardial effusion. Her level of responsiveness decreased while she was hypotensive, but improved as her blood pressure improved. At this time her GCS is 11 similar to presentation, she was given fentanyl for pain as well. I do not think she needs to be intubated in her current condition, she is protecting her airway and breathing well without any apparent intrathoracic injury on exam/chest x-ray. She continued to have venous bleeding from the left lower leg wound so I sutured that for hemorrhage control, and splinted her left lower leg for comfort during transport. Her urine appears to be infected so she was given Rocephin in addition to a dose of Ancef for the open fracture for additional coverage, her tetanus was updated, and since she is fluid responsive does not require pressors at this time. Her CPK was elevated but not enough to qualify for rhabdomyolysis. Her lactate is over 5, I suspect because of being septic from her UTI, which I think is probably causing her hypotension as well. She does not appear to have lost that much blood and her hemoglobin is 11.8 at initial check. Blood and urine cultures are sent and pending. Awaiting transport, I think it is safe to send b y ground. Lab Data Attestation: I reviewed the patient's lab results. Labs: Laboratory Results - last 24 hr 04/08/22 04/08/22 04/08/22 07:00 07:05 07:05 WBC 9.3 RBC 4.07 L Hgb 11.8 L Hct 37.6 MCV 92.4 MCH 29.0 MCHC 31.4 L RDW Std Deviation 47.6 H RDW Coeff of Tammy 13.9 Plt Count 340 MPV 9.8 Immature Gran % (Auto) 2.100 H Neut % (Auto) 57.0 Lymph % (Auto) 35.8 [place] % (Auto) 3.7 Eos % (Auto) 0.8 Baso % (Auto) 0.6 Absolute Neuts (auto) 5.3 Absolute Lymphs (auto) 3.31 Nucleated RBC % 0 PT 14.9 INR 1.2 APTT 35.7 Sodium Potassium Chloride Carbon Dioxide Anion Gap BUN Creatinine Estim Creat Clear Calc Est GFR (MDRD) Af Amer Est GFR (MDRD) Non-Af BUN/Creatinine Ratio Glucose Lactic Acid Calcium Total Bilirubin AST ALT Alkaline Phosphatase Total Creatine Kinase Troponin I High Sens Total Protein Albumin Globulin Albumin/Globulin Ratio Urine Color Yellow Urine Clarity Sl. Cloudy Urine pH 6.0 Ur Specific [place] 1.025 Urine Protein 500 H Urine Glucose (UA) Normal Urine Ketones Negative Urine Occult Blood 250 H Urine Nitrite Positive H Urine Bilirubin Negative Urine Urobilinogen Normal Ur Leukocyte Esterase 100 H Urine RBC 5-10 SEEN Urine WBC 10-25 SEEN Ur Squamous Epith Cells 0 SEEN Urine Bacteria 0 SEEN Urine Mucus 0 SEEN 04/08/22 04/08/22 04/08/22 07:05 07:05 07:12 WBC RBC Hgb Hct MCV MCH MCHC RDW Std Deviation RDW Coeff of Tammy Plt Count MPV Immature Gran % (Auto) Neut % (Auto) Lymph % (Auto) [place] % (Auto) Eos % (Auto) Baso % (Auto) Absolute Neuts (auto) Absolute Lymphs (auto) Nucleated RBC % PT INR APTT Sodium 138 Potassium 3.6 Chloride 104 Carbon Dioxide 24.0 Anion Gap 10 BUN 23 H Creatinine 0.86 Estim Creat Clear Calc 51.14 Est GFR (MDRD) Af Amer 83 Est GFR (MDRD) Non-Af 69 BUN/Creatinine Ratio 26.7 H Glucose 157 H Lactic Acid 5.2 H* Calcium 8.2 L Total Bilirubin 0.50 AST 98 H ALT 58 H Alkaline Phosphatase 110 Total Creatine Kinase 463 H Troponin I High Sens 16 Total Protein 6.4 Albumin 3.0 L Globulin 3.4 Albumin/Globulin Ratio 0.9 Urine Color Urine Clarity Urine pH Ur Specific [place] Urine Protein Urine Glucose (UA) Urine Ketones Urine Occult Blood Urine Nitrite Urine Bilirubin Urine Urobilinogen Ur Leukocyte Esterase Urine RBC Urine WBC Ur Squamous Epith Cells Urine Bacteria Urine Mucus Radiography Diagnostic Testing: Clinical Impression(s) from Imaging Studies Brain CT 04/08/22 06:57 IMPRESSION: No acute intracranial process. Electronically Signed: Anand Caro MD at 8:19 EDT Reading Location ID and State: [facility] / [place] Tel , Service support , Cervical Spine CT 04/08/22 06:57 IMPRESSION: No evidence of acute cervical spinal fracture or subluxation. Electronically Signed: Anand Caro MD at 8:26 EDT , Chest X-Ray 04/08/22 06:57 IMPRESSION: No radiographic evidence of acute cardiopulmonary disease. Electronically Signed: Anand Caro MD at 8:33 EDT Reading Location ID and State: [facility] / [place] Tel , Service support , Foot X-Ray 04/08/22 06:57 IMPRESSION: 1. Small intra-articular fracture of the base of the distal phalanx of the great toe. 2. Calcaneal spurs. Electronically Signed: Anand Caro MD at 8:31 EDT Reading Location ID and State: [address] [place] [address] Tel , Service support , Hip/Pelvis X-Ray 04/08/22 06:57 IMPRESSION: 1. Displaced fracture of the right hip. 2. Fractures of the pubic rami bilaterally. 3. Fracture of the left ischium. 4. CT scan of the pelvis might be of further value. Electronically Signed: Anand Caro MD at 8:43 EDT Reading Location ID and State: [address] [place] [address] Tel , Service support , Tibia/Fibula X-Ray 04/08/22 06:57 IMPRESSION: Comminuted oblique displaced fracture of the distal fibular shaft. Soft tissue swelling. Electronically Signed: Anand Caro MD at 8:38 EDT Reading Location ID and State: [facility] / [place] Tel , Service support , Rhythm Strip Rhythm Strip: A-fib Rate: 50 Ectopy: None EKG Initial EKG: Attestation: I personally reviewed and interpreted this EKG as follows: Interpretation: No Acute Injury Pattern, Atrial Fibrillation and Non- Specific ST Changes (ST-T scooping inf-lat) Prior EKG tracings: available for review Prior: Changed (was NSR; ST-T scooping is new) Procedures Lacerations Left lower leg: Length: 8 cm Depth: Muscle Shape: Linear Prep: Sterile Conditions and Chlorhexadine Laceration repair: Irrigated, Lidocaine with epi (1%, 6cc) and Skin sutures Irrigated (ml): 120 Number of Sutures/[place]: 5 Suture Information: Ethilon, Horizontal, Mattress and - (3-0) Comment: Good hemostasis after repair. Dressed with gauze and Kerlix. Lower Extremity Splints Lower Extremity Splint: Orthoglass (Short leg posterior with sugar-tong, up to the knee; neurovascularly intact distally after placement.) Splint Fabrication: Fabricated Location: Left Other Procedures Procedure(s): FAST -negative x 4 windows Critical Care Time Critical Care Time: Yes Critical care time (excluding procedures): 30-74 minutes (40 min, not including procedure time), Including time spent:, Discussing w/Patient &/or Family/Assistant Banquet Manager, Discussing w/Consultants, Arranging Admission or Transfer and Performing Direct Patient Care at Bedside Discharge Plan Triage Chief Complaint: Fall ED Provider: Bryce Dalal Dx/Rx/DC Orders Clinical Impression: Acute UTI, Encephalopathy acute, Closed intertrochanteric fracture of right hip, Open fracture of left tibia, Closed fracture of distal phalanx of left great toe, Septic shock, Closed fracture of left ischium, Bilateral fracture of pubic rami Prescriptions: No Action NK Primary Care Provider: Vivian Payne Referrals: Vivian Payne DO [Primary Care Provider] - Disposition Disposition: Acute Care Hospital Discharge Location: [facility]
[2022-04-08] MEDS: fentaNYL 100 MCG/2 ML Ampul 25 MCG IV (07:18)
[2022-04-08] MEDS: Cefazolin 1 GM/50 ML BAG IV (07:20)
[2022-04-08 07:21] LABS: Bacteria 0 SEEN /hpf (None Seen); Mucous, Urine 0 SEEN /hpf (<or=2+); Squamous Epithelial Cells - UA 0 SEEN /hpf (5-10)
[2022-04-08 07:22] LABS: Color, Urine Yellow (Yellow); Glucose, Dipstick Normal (Normal); Ketone-Dipstick Negative (Negative); Leukocyte Esterase-Dipstick 100 /ul (Negative); Nitrite-Dipstick Positive (Negative); Occult Blood-Urine 250 /ul (Negative); Protein-Dipstick 500 mg/dl (Negative); Specific Gravity, Urine 1.025 (1.002-1.030); Urine Bilirubin Dipstick Negative (Negative); Urine Clarity Sl. Cloudy (Clear); Urine Urobilinogen Normal (Normal)
[2022-04-08] MEDS: Diphth,Pertuss(Acell),Tet Vac 0.5 ML Vial IM (07:22)
[2022-04-08 07:23] LABS: Absolute Lymphocyte Count 3.31 X10^3/uL (0.83-4.51); Absolute Neutrophil Count 5.3 X10^3/uL (2.0-7.7); Basophil# 0.06 X10^3/uL; Basophil% 0.6 % (0-1); Eosinophil# 0.07 X10^3/uL; Eosinophils% 0.8 % (0-5); Hematocrit 37.6 % (37-47); Hemoglobin 11.8 g/dL (12.0-15.0); Lymphocyte # 3.31 X10^3/ul (0.83-4.51); Lymphocyte % 35.8 % (19-41); Mean Corp Hgb Conc 31.4 g/dL (32-36); Mean Corpuscular Volume 92.4 fL (81-99); Mean Platelet Vol. 9.8 fl (6.2-12.0); Monocyte# 0.34 X10^3/uL; Monocyte% 3.7 % (0-10); NRBC Flagged by Analyzer 0 % (0-5); Neutrophil # 5.28 X10^3/uL (2.7-7.7); Platelet Count 340 K/mm3 (150-450); RBC Distribution Width CV 13.9 % (11.6-14.6); RBC Distribution Width SD 47.6 fl (35.1-43.9); Red Blood Count 4.07 M/mm3 (4.2-5.4); White Blood Count 9.3 K/mm3 (4.4-11.0)
[2022-04-08 07:43] LABS: Red Blood Cells-Urine 5-10 SEEN /hpf (0-5); White Blood Cells 10-25 SEEN /hpf (0-5)
[2022-04-08 07:45] LABS: ALB/GLOB Ratio 0.9 RATIO (0.9-2.4); AST(SGOT) 98 U/L (15-37); Alanine Aminotransfer ALT/SGPT 58 U/L (13-56); Alkaline Phosphatase 110 U/L (45-117); Anion Gap 10 (5-15); BUN 23 mg/dL (7-18); BUN/Creat Ratio 26.7 RATIO (10-20); Calcium,Total 8.2 mg/dL (8.5-10.1); Chloride 104 mmol/L (98-107); Creatinine, Serum 0.86 mg/dL (0.55-1.02); EST Glomerular Filtration Rate 69 mL/min (>60); Est Glom Filt Rate - Afr Amer 83 mL/min (>60); Estimated Creatinine Clearance 51.14 ml/min; Globulin 3.4 g/dL (2.2-4.2); Glucose 157 mg/dL (74-106); Potassium 3.6 mmol/L (3.5-5.1); Protein, Total 6.4 g/dL (6.4-8.2); Sodium Level 138 mmol/L (136-145); Troponin-I HS 16 pg/mL (3.0-54.0)
[2022-04-08 07:51] LABS: CPK Total, Creatine Kinase 463 U/L (26-192)
[2022-04-08 07:58] LABS: Lactic Acid 5.2 mmol/L (0.4-1.9)
[2022-04-08 08:06] LABS: International Normalized Ratio 1.2; Prothrombin Time (Protime)PT. 14.9 SECONDS (11.7-14.9)
[2022-04-08 08:07] LABS: Partial Thromboplast Time 35.7 Seconds (24.1-36.2)
[2022-04-08] MEDS: Ceftriaxone 1 GM/50 ML BAG IV (08:14)
--- NOTE | 2022-04-08 08:38 | ED.RN ---
1 liter bolus hung via fluid warmer
[2022-04-08 11:18] LABS: Reflex Lactate? Y
== END 2022-04-08 10:23 | disposition short-term general hospital (02) ==
PROVIDERS: Emergency Provider Emergency Medicine; PCP Family Medicine; Visit Provider Emergency Medicine
DX: A41.9 Sepsis, unspecified organism (principal); M06.9 Rheumatoid arthritis, unspecified; R65.21 Severe sepsis with septic shock; S32.82XA Multiple fractures of pelvis without disruption of pelvic ring, initial encounter for closed fracture; S72.141A Displaced intertrochanteric fracture of right femur, initial encounter for closed fracture; I48.0 Paroxysmal atrial fibrillation; S92.425A Nondisplaced fracture of distal phalanx of left great toe, initial encounter for closed fracture; S82.402B Unspecified fracture of shaft of left fibula, initial encounter for open fracture type I or II; T68.XXXA Hypothermia, initial encounter; W19.XXXA Unspecified fall, initial encounter; N39.0 Urinary tract infection, site not specified; G93.40 Encephalopathy, unspecified; M19.90 Unspecified osteoarthritis, unspecified site; K21.9 Gastro-esophageal reflux disease without esophagitis; I95.9 Hypotension, unspecified; Z23 Encounter for immunization
CPT/HCPCS: 29515; 12034; 51702; 70450; 71045; 72125; 73502; 73590; 73630; 80053; 81001; 82550; 83605; 84484; 85025; 85610; 85730; 87040; 87077; 87086; 87088; 87186; 87811; 90715; 93005; 96361; 96365; 96366; 96367; 96375; 99285; J7050; A4216

== ENCOUNTER 2022-04-17 16:39 | Inpatient (IN) | payer MEDICARE, OTHER, SELFPAY ==
[2022-04-17 17:04] VITALS: BP 115/63; PULSE 65; RESP 22; TEMP 37.1; O2SAT 98; BMI 23.4
[2022-04-17 18:00] VITALS: RESP 16
[2022-04-17] MEDS: oxyCODONE 5 MG Tablet PO (18:45)
--- NOTE | 2022-04-17 19:21 | HP.PCM_ITS ---
[facility] - General General Date of Admission: 04/17/22 Date of Service: 04/17/22 HPI Narrative HILARY ULRICH, is a 72 Female who presents to [facility] Emergency Department with fall. Found down on driveway at night, confused, moaning. Sometimes forgetful, but able to perform ADL's. Stopped all medications less than 1 year ago In past, confused with infections. CT brain negative, CT cervical spine negative, Chest X-ray negative. X-ray showed left great toe fracture, left tibia fracture. X-ray showed bilateral pelvis fracture, right hip fracture. Patient hypotensive, IV fluids given. Urinalysis consistent with urinary tract infection, Ceftriaxone given, Ancef given for open left tibia fracture. Transfer to [facility] for trauma. 04/08/2022 Admit to [facility] for trauma. Open left tibia fracture treated with intramedullary nail fixation. Right hip fracture treated with anterograde intramedullary nail. Of note, patient suffered injuries falling out of second story window due to confusion from urinary tract infection. Also, patient has right lower lobe lung mass which needs PET/CT, and/or biopsy as outpatient to rule out lung cancer. 04/17/2022 Admit to TCU with debility, here for rehabilitation, strengthening, prior to discharge home alone. [facility] Medical History Arthritis Atrial fibrillation COVID-19 Electrical isolation of left atrial appendage after cardiac ablation procedure for atrial fibrillation Gastritis Gastrointestinal problem GERD (gastroesophageal reflux disease) GERD (gastroesophageal reflux disease) IBS (irritable bowel syndrome) Irregular heart beat Neuropathy Non-smoker Osteoarthritis Osteopenia Paroxysmal atrial fibrillation Rheumatoid arthritis Seasonal allergies Vision problem Home Medications Probiotic 1 cap PO/SL DAILY digestion 04/17/22 [History Last Taken Unknown] acetaminophen 500 mg tablet 1,000 mg PO Q6H PRN Pain 04/17/22 [History Last Taken Unknown] aspirin 81 mg capsule 81 mg PO DAILY blood thinner 04/17/22 [History Last Taken Unknown] biotin 5,000 mcg disintegrating tablet 5,000 mcg PO DAILY supplement 04/17/22 [History Last Taken Unknown] calcium 600 mg capsule 600 mg PO TID supplement 04/17/22 [History Last Taken Unknown] cholecalciferol (vitamin D3) 25 mcg (1,000 unit) capsule (Vitamin D3) 50 mcg PO DAILY supplement 04/17/22 [History Last Taken Unknown] colestipol 1 gram tablet 1 g PO DAILY supplement 04/17/22 [History Last Taken Unknown] cyanocobalamin (vitamin B-12) 5,000 mcg sublingual tablet (Vitamin B-12) 5,000 mcg sublingual DAILY supplement 04/17/22 [History Last Taken Unknown] cyclobenzaprine 5 mg tablet 5 mg PO TID muscle spasms 04/17/22 [History Last Taken Unknown] esomeprazole magnesium 20 mg capsule,delayed release (Nexium) 20 mg PO DAILY reflux 04/17/22 [History Last Taken Unknown] gabapentin 100 mg capsule 100 mg PO TID pain 04/17/22 [History Last Taken Unknown] lactase 9,000 unit tablet 9,000 unit PO DAILY supplement 04/17/22 [History Last Taken Unknown] lidocaine 4 % topical patch (Salonpas (lidocaine)) 1 patch topical DAILY pain 04/17/22 [History Last Taken Unknown] metronidazole 0.75 % topical cream 1 applic topical DAILY topical 04/17/22 [History Last Taken Unknown] omega 7-hez-ozk-fish oil 300 mg-1,000 mg capsule (Fish Oil) 2 cap PO DAILY supplement 04/17/22 [History Last Taken Unknown] oxycodone 5 mg capsule 5 - 10 mg PO Q6H PRN Pain 04/17/22 [History Last Taken Unknown] sennosides 8.6 mg-docusate sodium 50 mg tablet (Senna with Docusate Sodium) 1 tab PO BID stool softener 04/17/22 [History Last Taken Unknown] Allergy/AdvReac Type Severity Reaction Status Date / Time diltiazem Allergy Severe itching Verified 08/23/21 09:58 and swelling procainamide Allergy Unknown Unknown Verified 08/23/21 09:58 ciprofloxacin [From Cipro] Allergy Other Verified 08/23/21 09:58 metronidazole [From Flagyl] Allergy Diarrhea Verified 08/23/21 09:58 Sulfa (Sulfonamide Allergy Anaphylaxis Verified 08/23/21 09:58 Antibiotics) sotalol AdvReac Unknown Lethargic Verified 08/23/21 09:58 amiodarone AdvReac Other Verified 08/23/21 09:58 flecainide AdvReac Other Verified 08/23/21 09:58 metoprolol AdvReac Itching Verified 08/23/21 09:58 propafenone [From Rythmol] AdvReac Other Verified 08/23/21 09:58 tramadol AdvReac Vomiting Verified 08/23/21 09:58 ALMOST ALL HEART MEDS Allergy Unknown Uncoded 08/23/21 09:58 Family History Other Arthritis Breast cancer Colon cancer Depression Myocardial infarction Severe allergy Surgical History Hx of colectomy Social History (Updated 04/17/22 @ 19:[address] Don Lyons MD) household members: none Smoking Status: Never smoker alcohol intake: never substance use type: does not use ROS Constitutional Constitutional: Denies chills, fever(s) or weight gain ENT HEENT: Denies headache(s), nasal congestion or nasal discharge Cardiovascular Cardiovascular: Denies chest pain or palpitations Respiratory/Chest Respiratory/Chest: Denies cough, excessive phlegm production or shortness of breath with exertion Gastrointestinal Gastrointestinal: Denies abdominal pain, nausea or vomiting Genitourinary Genitourinary: Denies dysuria Musculoskeletal Musculoskeletal: Denies joint pain or joint swelling Integumentary Integumentary: Denies rash or wounds Neurologic Neurologic: Denies focal weakness, numbness or tingling Psychiatric Psychiatric: Denies anxiety, auditory hallucinations, depression, homicidal ideation or suicidal ideation Vital Signs Vital Signs Vital Signs: 04/17/22 17:04 Temperature 98.7 F Temperature Source Temporal Pulse Rate 65 Respiratory Rate 22 H Blood Pressure 115/63 Blood Pressure Mean 80 Blood Pressure Source Monitor Blood Pressure Position Semi-Fowlers Blood Pressure Location Left Arm Pulse Ox 98 Oxygen Delivery Method Room Air Weight Weight: 65.799 kg Body Mass Index (BMI) 23.4 Physical Exam Const alert General Appearance: cooperative HEENT normocephalic Eyes PERRL and EOMs intact bilaterally Neck supple, no JVD and no carotid bruits Resp normal respiratory effort, normal air movement and clear to auscultation bilaterally Cardio regular rate and regular rhythm GI normal to inspection, nondistended, normoactive bowel sounds, non-tender and non-distended Extremity normal capillary refill Extremity Narrative: Left lower extremity splint. General Extremity: Negative for edema Skin no rashes or lesions noted General Skin Exam: no breakdown Psych affect normal Appearance: appropriate Assessment & Plan Assessment/Plan (1) Debility: (2) Acute encephalopathy: (3) Urinary tract infection: (4) Multiple trauma: (5) Open left tibial fracture: (6) Closed right hip fracture: (7) Atrial fibrillation: (8) GERD (gastroesophageal reflux disease): (9) Rheumatoid arthritis: PLAN: Plan 72 year old female with below past medical history suffered fall from second story, hospitalized for multi trauma, underwent left tibia intramedullary nail fixation, right hip anterograde intramedullary nail, complicated by encephalopat hy from urinary tract infection, admitted to TCU with debility, here for rehabilitation, strengthening, prior to discharge home alone. * Debility - PT/OT. * Pain - Tylenol 1000mg q6, Oxycodone 5-10mg q6h prn pain (1-5, 6-10), Lidoderm patch 1 patch topical daily. * Bowel - Senna/colace 1 tablet bid, Colestipol 1gm daily. * Adult immunization - Administer pneumonia vaccine, covid19 vaccine, flu vacc ine as appropriate. * DVT prophylaxis - Hold. * CV prophylaxis - Aspirin 81mg daily. * Calcium deficiency - Calcium 500mg tidcm. * Muscle spasm - Flexeril 5mg tid. * Neuropathic pain - Gabapentin 100mg tid. * Lactose intolerance - Lactase 9,000 units daily. * GI prophylaxis - Lactobacillus 1 tablet daily. * GERD - Pantoprazole 20mg q48h. * Vitamin D deficiency - D3 50mcg daily. * Encephalopathy - Resolved, consider evaluation for dementia. * Right lower lobe lung mass - PET/CT and/or biopsy as outpatient.
[2022-04-17] MEDS: Gabapentin 100 MG Capsule PO (21:45)
[2022-04-17] MEDS: Senna/Docusate Sodium 1 Tablet PO (21:51)
[2022-04-17] MEDS: cycloBENZAPRine HCl 5 MG TABLET PO (21:51)
[2022-04-18] MEDS: Acetaminophen 500 MG Tablet 1000 MG PO ×4 (00:48→14:04)
[2022-04-18] MEDS: oxyCODONE 5 MG Tablet PO ×5 (00:49→20:17)
[2022-04-18 05:31] LABS: Absolute Lymphocyte Count 1.58 X10^3/uL (0.83-4.51); Absolute Neutrophil Count 7.7 X10^3/uL (2.0-7.7); Basophil# 0.03 X10^3/uL; Basophil% 0.3 % (0-1); Hematocrit 31.8 % (37-47); Hemoglobin 9.7 g/dL (12.0-15.0); Lymphocyte # 1.58 X10^3/ul (0.83-4.51); Lymphocyte % 15.4 % (19-41); Mean Corp Hgb Conc 30.5 g/dL (32-36); Mean Corpuscular Hgb 29.6 pg (27.0-32.0); Mean Platelet Vol. 9.2 fl (6.2-12.0); Monocyte# 0.73 X10^3/uL; Monocyte% 7.1 % (0-10); NRBC Flagged by Analyzer 0 % (0-5); Neutrophil # 7.68 X10^3/uL (2.7-7.7); Platelet Count 584 K/mm3 (150-450); RBC Distribution Width CV 17.2 % (11.6-14.6); RBC Distribution Width SD 57.1 fl (35.1-43.9); Red Blood Count 3.28 M/mm3 (4.2-5.4); White Blood Count 10.2 K/mm3 (4.4-11.0)
[2022-04-18 05:58] LABS: Anion Gap 5 (5-15); BUN 19 mg/dL (7-18); BUN/Creat Ratio 36.4 RATIO (10-20); Calcium,Total 8.3 mg/dL (8.5-10.1); Chloride 106 mmol/L (98-107); Creatinine, Serum 0.52 mg/dL (0.55-1.02); EST Glomerular Filtration Rate 122 mL/min (>60); Est Glom Filt Rate - Afr Amer 148 mL/min (>60); Glucose 110 mg/dL (74-106); Potassium 4.7 mmol/L (3.5-5.1); Sodium Level 139 mmol/L (136-145)
[2022-04-18 06:10] VITALS: BP 112/59; PULSE 68
[2022-04-18] MEDS: cycloBENZAPRine HCl 5 MG TABLET PO ×3 (06:11→20:20)
[2022-04-18] MEDS: Cholecalciferol (VIT D3) 25 MCG TABLET (1,000 UNITS) 50 MCG PO (06:11)
[2022-04-18] MEDS: Senna/Docusate Sodium 1 Tablet PO (06:14)
[2022-04-18] MEDS: Lidocaine 5% Patch 1 PATCH TOPICAL (06:25)
[2022-04-18 08:31] VITALS: BP 111/55; PULSE 59; RESP 14; TEMP 36.8; O2SAT 99
[2022-04-18 08:32] VITALS: BP 111/55; BP 122/86; PULSE 59; PULSE 81
[2022-04-18] MEDS: Aspirin 81 MG TAB.CHEW PO (08:36)
[2022-04-18] MEDS: Calcium (Elemental) 500 MG Tablet PO ×3 (08:36→18:09)
[2022-04-18] MEDS: Ensure Plus High Protein 120 ML LIQUID PO ×3 (08:37→18:08)
[2022-04-18] MEDS: Colestipol 1 GM TABLET PO (08:38)
[2022-04-18] MEDS: Gabapentin 100 MG Capsule PO ×3 (08:38→18:10)
[2022-04-18] MEDS: Pantoprazole Sodium 20 MG Tablet PO (08:38)
[2022-04-18] MEDS: Tuberculin,Purif.prot.deriv. 50 TU/ML Vial 0.1 ML ID (10:19)
[2022-04-18] MEDS: Menthol/Lanolin/Calamine/Znox 113 GM Tube 1 APPLIC TOPICAL ×2 (14:04→20:25)
[2022-04-18 14:43] VITALS: BP 119/53; PULSE 73; RESP 18; TEMP 37; O2SAT 94
--- NOTE | 2022-04-18 16:43 | CASEMGMT ---
Social Work Per chart review, the incident appears unclear. Therapy also verbally reported pt's hygiene was poor that is suspected to have developed over time as a lack of cleanliness. Given this information, SW contacted dtr Merlyn, to get further details. Spoke with dtr at length about incident, home condition, PLOF, and goals for DC. Dtr explained from what family, EMS and neighbors can gather - the 3rd story house window was open, pt was confused from UTI, fell out of the window, landed on the 2nd story roof landing, which removed a piece of cheryl that pt landed on when hitting the ground that helped break pt's fall, thus resulting in injuries instead of . Dtr stated she was talking to pt all day the day of the incident and texting up until 10 pm that evening. Dtr reports no change in cognition. Pt's phone and glasses were still found in the place where pt puts them every night, with the TV still on the channel the dtr know's pt was watching. The neighbor found the pt on the driveway at 0630 the next morning, suspecting, the pt laid on the driveway for the majority of the night. The neighbor found the pt's shoe in the flower garden, near the driveway, under the roof landing. Dtr reports she has noticed pt's hygiene being neglected by pt. Per dtr, pt has not taken a full shower since 2021, and just sponge bathes. Dtr offered to hire WOOL FLEECE SORTER to assist with showers, since pt has a claw foot bathtub, but pt denied several times. Dtr is suspecting pt's lack of hygiene has resulted in the recurrent UTIs. Pt stays on the first floor, sleeping on a couch and uses the half bathroom. Dtr explains since pt had COVID in December 2021, pt has never been the same, describing pt lost motivation, became depressed, does not want to go out of the house. Dtr has spoken with pt about depression, but pt denied counseling, medications or that pt was depressed. SW treaded lightly and inquired about pt possibly purposefully jumping out of the window. Dtr paused and replied, I know my mother very well, and I can honestly say she wouldn't kill herself this way. She has zero pain tolerance and if she had any suspicion that the act would not kill her, she wouldn't do it. If she would do it, she would take a lot of pills and go to sleep. SW inquired if pt had any thoughts or attempts of wanting to kill herself in the past, that dtr was aware of . Dtr confidently denied. Dtr reports pt was independent prior with no concerns being alone, but since this incident, dtr will be discussing with sister and pt about pt moving in with dtr, Merlyn. Dtr does not feel she will be comfortable with pt living alone moving forward. Dtr did mention that since COVID, pt has been more forgetful. For example, pt forgot to file her taxes this year. SW explained ST is active with pt and will assess cognition. SW asked for dtr to provide copy of advanced directives, per dtr she is POA. Dtr agreed. Educated to Medicare benefit. Encouraged to contact secondary insurance to ensure copay coverage. ---- SW met with patient in room. Introduced self and role. Pt expressed discomfort, sweaty, but open to speaking with this worker. SW offered to return the following day. Pt agreed to answer questions. SW provided empathy for incident and offered to provide support throughout stay. Pt appreciative. Pt denied remembering what happened, how it occurred. Again, SW asked lightly, if pt purposefully fell out of window. SW noted that pt did not look shocked by question, but adamantly denied. Pt denied any past or present suicidal attempts/intents/thoughts. Again, SW offered to assist with processing incident, providing support if needed. Educated to Medicare benefit. Inquired about DC plans. Pt acknowledged home alone may not be the safest plan, but will discuss with dtrs. Discussed code status and MOLST. Pt unsure about wishes. SW educated to DNR and full code. Pt wishes to think about options more before making a decision. SW understood and educated that pt will remain full code until pt states otherwise. pt appreciative. SW to continue to follow for DC planning as support as needed. Cass Hodges, WOOD CHOPPER PRISON TEACHER
[2022-04-18] MEDS: Petrolatum 33% Tube 1 APPLIC TOPICAL (20:25)
[2022-04-19] MEDS: Acetaminophen 500 MG Tablet 1000 MG PO ×4 (00:53→23:29)
[2022-04-19] MEDS: oxyCODONE 5 MG Tablet PO ×4 (00:53→22:27)
[2022-04-19] MEDS: Lidocaine 5% Patch 1 PATCH TOPICAL (06:30)
[2022-04-19] MEDS: Cholecalciferol (VIT D3) 25 MCG TABLET (1,000 UNITS) 50 MCG PO (06:31)
[2022-04-19] MEDS: Senna/Docusate Sodium 1 Tablet PO (06:31)
[2022-04-19] MEDS: Petrolatum 33% Tube 1 APPLIC TOPICAL ×2 (06:32→22:16)
[2022-04-19] MEDS: cycloBENZAPRine HCl 5 MG TABLET PO (06:32)
[2022-04-19] MEDS: Menthol/Lanolin/Calamine/Znox 113 GM Tube 1 APPLIC TOPICAL ×3 (06:33→22:16)
[2022-04-19] MEDS: Ensure Plus High Protein 120 ML LIQUID PO ×2 (08:16→12:30)
[2022-04-19] MEDS: Calcium (Elemental) 500 MG Tablet PO ×2 (08:16→12:26)
[2022-04-19] MEDS: Aspirin 81 MG TAB.CHEW PO (08:17)
[2022-04-19] MEDS: Colestipol 1 GM TABLET PO (09:05)
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
[2022-04-19] MEDS: Baclofen 10 MG Tablet PO ×2 (11:20→12:26)
[2022-04-19] MEDS: Gabapentin 300 MG Capsule PO (12:25)
[2022-04-19 13:55] VITALS: BP 118/60; PULSE 77; RESP 16; TEMP 36.6; O2SAT 97
--- NOTE | 2022-04-19 14:25 | WOUNDNOTE ---
wound photo: left medial lower leg
--- NOTE | 2022-04-19 14:26 | WOUNDNOTE ---
wound photo: left leg
--- NOTE | 2022-04-19 14:27 | WOUNDNOTE ---
wound photo: left foot
--- NOTE | 2022-04-19 14:28 | WOUNDNOTE ---
wound photo: left lower leg/foot
--- NOTE | 2022-04-19 14:28 | WOUNDNOTE ---
wound photo: left foot
--- NOTE | 2022-04-19 19:43 | NURSING ---
[facility] contacted regarding surgery f/u. They reported only needed 1 follow-up with Dr. Pope on April 18. [facility] also contacted and they wanted her to come in for catheter removal and then again for PVR. Dr. Thurman ordered to keep catheter at this time and appointment can be canceled. Appointment still needing canceled at this time. Also call to PCP regarding PN vaccine and left message. Awaiting callback.
--- NOTE | 2022-04-19 19:48 | NURSING ---
Patient became lethargic this evening at 1630 and diaphoretic. VS 113/53 93% on RA 65 97.6 16. Pt reports just tired and is alert and oriented when aroused. Dr. Thurman made aware and changed new baclofen order to PRN d/t drowsiness. Daughter aware and reports pt often reacts strongly to new meds.
[2022-04-20] MEDS: Lidocaine 5% Patch 1 PATCH TOPICAL (05:29)
[2022-04-20] MEDS: Acetaminophen 500 MG Tablet 1000 MG PO ×3 (05:30→17:29)
[2022-04-20] MEDS: Cholecalciferol (VIT D3) 25 MCG TABLET (1,000 UNITS) 50 MCG PO (05:30)
[2022-04-20] MEDS: Senna/Docusate Sodium 1 Tablet PO ×2 (05:31→17:34)
[2022-04-20] MEDS: Menthol/Lanolin/Calamine/Znox 113 GM Tube 1 APPLIC TOPICAL ×3 (05:32→20:26)
[2022-04-20] MEDS: Petrolatum 33% Tube 1 APPLIC TOPICAL ×2 (05:32→20:27)
[2022-04-20] MEDS: oxyCODONE 5 MG Tablet PO ×3 (05:41→20:34)
[2022-04-20] MEDS: Calcium (Elemental) 500 MG Tablet PO ×3 (08:39→17:29)
[2022-04-20] MEDS: Gabapentin 300 MG Capsule PO ×3 (08:40→17:29)
[2022-04-20] MEDS: Aspirin 81 MG TAB.CHEW PO (08:40)
[2022-04-20] MEDS: Pantoprazole Sodium 20 MG Tablet PO (08:40)
[2022-04-20] MEDS: Ensure Plus High Protein 120 ML LIQUID PO ×3 (08:51→17:39)
[2022-04-20 14:57] VITALS: BP 116/54; PULSE 70; RESP 16; TEMP 36.6; O2SAT 99
[2022-04-20 22:24] VITALS: PULSE 75; RESP 16; O2SAT 98
[2022-04-21] MEDS: Acetaminophen 500 MG Tablet 1000 MG PO ×4 (00:28→18:06)
[2022-04-21] MEDS: Lidocaine 5% Patch 1 PATCH TOPICAL (05:56)
[2022-04-21] MEDS: Menthol/Lanolin/Calamine/Znox 113 GM Tube 1 APPLIC TOPICAL ×3 (05:56→20:46)
[2022-04-21] MEDS: Cholecalciferol (VIT D3) 25 MCG TABLET (1,000 UNITS) 50 MCG PO (05:57)
[2022-04-21] MEDS: Senna/Docusate Sodium 1 Tablet PO ×2 (05:57→16:36)
[2022-04-21] MEDS: Petrolatum 33% Tube 1 APPLIC TOPICAL ×2 (06:10→20:47)
[2022-04-21] MEDS: oxyCODONE 5 MG Tablet PO ×4 (06:38→20:55)
[2022-04-21] MEDS: Calcium (Elemental) 500 MG Tablet PO ×3 (08:28→16:36)
[2022-04-21] MEDS: Gabapentin 300 MG Capsule PO ×3 (08:28→16:36)
[2022-04-21] MEDS: Ensure Plus High Protein 120 ML LIQUID PO ×3 (08:28→16:36)
[2022-04-21] MEDS: Aspirin 81 MG TAB.CHEW PO (08:28)
--- NOTE | 2022-04-21 10:55 | WOUNDNOTE ---
Pt c/o discomfort to the right hip. this nurse noticed a dressing was in place. there was no date on the dressing and the edges were rolling up. removed the dressing. there was moisture noted to the outer edges of the dressing. Pt was admitted to TCU with no dressing orders. this nurse reviewed paperwork sent from [facility] and had found a procedural noted from 04/11/22 that states to keep dressing to the right hip in place for 7 days. dressing should have been removed prior to pt coming to TCU. there are 3 small incisions noted. no redness or drainage noted. washed the right hip/thigh with soap and water and pat dry. will leave CARE AIDE. pt states feels much better without the dressing. Pt tolerated dressing change to the LLE well.
[2022-04-21 15:59] VITALS: BP 99/49; PULSE 68; RESP 16; TEMP 36.7; O2SAT 95
[2022-04-22] MEDS: oxyCODONE 5 MG Tablet PO ×3 (06:33→20:13)
[2022-04-22] MEDS: Lidocaine 5% Patch 1 PATCH TOPICAL (06:34)
[2022-04-22] MEDS: Menthol/Lanolin/Calamine/Znox 113 GM Tube 1 APPLIC TOPICAL ×3 (06:35→20:16)
[2022-04-22] MEDS: Senna/Docusate Sodium 1 Tablet PO (06:35)
[2022-04-22] MEDS: Cholecalciferol (VIT D3) 25 MCG TABLET (1,000 UNITS) 50 MCG PO (06:35)
[2022-04-22] MEDS: Petrolatum 33% Tube 1 APPLIC TOPICAL ×2 (06:35→20:16)
[2022-04-22] MEDS: Acetaminophen 500 MG Tablet 1000 MG PO ×3 (06:35→18:01)
[2022-04-22] MEDS: Ensure Plus High Protein 120 ML LIQUID PO ×3 (08:11→17:59)
[2022-04-22] MEDS: Gabapentin 300 MG Capsule PO ×3 (08:11→18:08)
[2022-04-22] MEDS: Aspirin 81 MG TAB.CHEW PO (08:14)
[2022-04-22] MEDS: Calcium (Elemental) 500 MG Tablet PO ×3 (08:14→18:01)
[2022-04-22] MEDS: Pantoprazole Sodium 20 MG Tablet PO (08:14)
--- NOTE | 2022-04-22 14:47 | NURSING ---
Dr. Lyons update on pt's c/o of Constipation. N.O. to increase Senna 2 tabs BID and 17gm of Mirlax daily.
[2022-04-22 14:56] VITALS: BP 95/49; PULSE 63; RESP 16; TEMP 36.6; O2SAT 97
[2022-04-22] MEDS: Senna/Docusate Sodium 1 Tablet 2 TABLET PO (18:02)
--- NOTE | 2022-04-22 21:00 | NURSING ---
Pt reports having poorly controlled pain. Reports she was not given stronger pain medication earlier today due to concerns with low blood pressure. data technician nurse administered Oxycodone approximately an hour ago. Has scheduled Tylenol and Gabapentin. Offered Baclofen. Explained side effects and desired effects of the medication. Has not taken muscle relaxers in the past. Pt has been texting her daughter intermittently throughout conversation with this nurse and notes her daughter is encouraging her to take the Baclofen. After discussing pain and medication options for greater than 30 minutes, pt is agreeable to taking the Baclofen. Will continue to monitor.
[2022-04-22] MEDS: Baclofen 10 MG Tablet PO (21:50)
--- NOTE | 2022-04-23 00:30 | NURSING ---
Pt reports feeling nauseated and questions if Baclofen is the cause. Offered velma mirella and saltine crackers and pt refuses. Was accepting of a cool washcloth to her forehead. Held dose of scheduled Tylenol due to nausea. Dressing change to the LLE completed at this time. In no acute distress. Will continue to monitor.
[2022-04-23] MEDS: oxyCODONE 5 MG Tablet PO ×4 (01:34→18:31)
[2022-04-23] MEDS: Senna/Docusate Sodium 1 Tablet 2 TABLET PO ×2 (06:54→17:24)
[2022-04-23] MEDS: Cholecalciferol (VIT D3) 25 MCG TABLET (1,000 UNITS) 50 MCG PO (06:55)
[2022-04-23] MEDS: Acetaminophen 500 MG Tablet 1000 MG PO ×4 (06:55→23:43)
[2022-04-23] MEDS: Polyethylene Glycol 3350 17 GM PACKET PO (06:56)
[2022-04-23] MEDS: Lidocaine 5% Patch 1 PATCH TOPICAL (06:57)
[2022-04-23] MEDS: Menthol/Lanolin/Calamine/Znox 113 GM Tube 1 APPLIC TOPICAL ×3 (06:59→22:37)
[2022-04-23] MEDS: Petrolatum 33% Tube 1 APPLIC TOPICAL ×2 (06:59→22:37)
[2022-04-23] MEDS: Gabapentin 300 MG Capsule PO ×3 (08:40→17:24)
[2022-04-23] MEDS: Ensure Plus High Protein 120 ML LIQUID PO ×2 (08:41→13:21)
[2022-04-23] MEDS: Calcium (Elemental) 500 MG Tablet PO ×3 (08:42→17:24)
[2022-04-23] MEDS: Aspirin 81 MG TAB.CHEW PO (08:42)
[2022-04-23 10:00] VITALS: PULSE 65; RESP 16; O2SAT 99
[2022-04-23 16:00] VITALS: BP 102/53; PULSE 59; RESP 16; TEMP 36.5; O2SAT 99
--- NOTE | 2022-04-23 20:24 | NURSING ---
Patient in room crying due to pain in abdomen. States she has not had a bowel movement today, last documented one on 04/22/22. States she has been having difficulty with having bowel movements, does have stool softeners scheduled. BS x 4, abdomen is firm and tender with palpation. Last pain medication administered at approximately 18:30. Gingerale and saltines given. Patient emotional, discussed family dynamics, and expressed happiness that her one daughter from [place] was able to visit her today. Allowed patient to talk, offering support. Patient currently calm, quiet, resting in bed. Will continue to monitor.
[2022-04-23] MEDS: Bisacodyl 10 MG Suppository RC (23:46)
[2022-04-23] MEDS: Sodium Chloride 0.65% 1 SPRAY SPRAY.BTL NASAL (23:59)
[2022-04-24] MEDS: Magnesium Hydroxide 30 ML UDC PO (02:01)
[2022-04-24] MEDS: oxyCODONE 5 MG Tablet PO ×3 (05:34→17:43)
[2022-04-24] MEDS: Senna/Docusate Sodium 1 Tablet 2 TABLET PO ×2 (05:35→17:45)
[2022-04-24] MEDS: Cholecalciferol (VIT D3) 25 MCG TABLET (1,000 UNITS) 50 MCG PO (05:36)
[2022-04-24] MEDS: Polyethylene Glycol 3350 17 GM PACKET PO (05:36)
[2022-04-24] MEDS: Lidocaine 5% Patch 1 PATCH TOPICAL (05:36)
[2022-04-24] MEDS: Menthol/Lanolin/Calamine/Znox 113 GM Tube 1 APPLIC TOPICAL ×3 (05:39→20:18)
--- NOTE | 2022-04-24 05:55 | NURSING ---
Pt refusing debrox drops at this time. Would like to speak to her daughter before drops are administered.
--- NOTE | 2022-04-24 07:55 | NURSING ---
Addendum entered by Karla Juarez 04/24/22 07:56: Abdomen slightly distended and firm. Passed a small amount of soft, brown stool four times during the shift. Frequently is tearful. Much emotional support and reassurance provided. Will report to onciming nurse and continue to monitor. Original Note: Pt with significant anxiety and issues w/ constipation throughout the night. Given MOM w/ warmed prune juice, encouraged to increase water, and Dulcolax suppository given in addition to scheduled Senna-S and Miralax. Bowel sounds x 4 quadrants. Abdomen slightly distended and pipo
[2022-04-24 10:00] VITALS: PULSE 65; RESP 16
[2022-04-24 11:19] VITALS: BP 110/62; PULSE 62; RESP 16; TEMP 36.7; O2SAT 98
--- NOTE | 2022-04-24 11:24 | WOUNDNOTE ---
wound photo: left buttock
--- NOTE | 2022-04-24 11:25 | WOUNDNOTE ---
wound photo: left foot
--- NOTE | 2022-04-24 11:25 | WOUNDNOTE ---
wound photo: left lower leg
--- NOTE | 2022-04-24 11:26 | WOUNDNOTE ---
wound photo: left leg
--- NOTE | 2022-04-24 11:37 | RAD_ITS ---
STUDY: X-RAY - ABDOMEN/PELVIS REASON FOR EXAM: Female, 72 years old. Nausea, abdominal pain TECHNIQUE: Single AP view of the abdomen / pelvis. COMPARISON: None. FINDINGS: There is a moderate amount of colonic fecal material. 1.3 cm x 1.5 cm calcification in the medial aspect of the left upper quadrant. This may represent calcification of the left adrenal gland. Normal soft tissue structures. Prior ORIF of the right intertrochanteric fracture as well as prior screw fixation of the right sacroiliac joint. Old fractures of the right and left superior and inferior pubic rami. There are diffuse degenerative changes of the visualized lumbar spine. RAD/Abdomen Single View IMPRESSION: Moderate amount of fecal material is seen in the colon. Questionable left adrenal gland calcification. Electronically Signed: Dmitri Riley MD at 12:37 EST ,
[2022-04-24] MEDS: Gabapentin 300 MG Capsule PO ×2 (12:02→17:43)
[2022-04-24] MEDS: Ondansetron 8 MG Tablet PO (12:03)
[2022-04-24] MEDS: Aspirin 81 MG TAB.CHEW PO (12:04)
[2022-04-24] MEDS: Pantoprazole Sodium 20 MG Tablet PO (12:04)
[2022-04-24] MEDS: Calcium (Elemental) 500 MG Tablet PO ×2 (12:05→17:44)
[2022-04-24 13:28] LABS: Mucous, Urine 0 SEEN /hpf (<or=2+)
[2022-04-24] MEDS: Lactulose 20 GM/30 ML UDC PO (13:32)
[2022-04-24] MEDS: FLUCONAZOLE 150 MG TABLET PO (13:33)
[2022-04-24] MEDS: Acetaminophen 500 MG Tablet 1000 MG PO ×2 (13:34→19:29)
[2022-04-24 13:36] LABS: Absolute Lymphocyte Count 1.11 X10^3/uL (0.83-4.51); Absolute Neutrophil Count 8.5 X10^3/uL (2.0-7.7); Basophil# 0.04 X10^3/uL; Basophil% 0.4 % (0-1); Eosinophil# 0.04 X10^3/uL; Eosinophils% 0.4 % (0-5); Hematocrit 35.9 % (37-47); Hemoglobin 10.8 g/dL (12.0-15.0); Lymphocyte # 1.11 X10^3/ul (0.83-4.51); Lymphocyte % 10.7 % (19-41); Mean Corp Hgb Conc 30.1 g/dL (32-36); Mean Corpuscular Hgb 29.7 pg (27.0-32.0); Mean Corpuscular Volume 98.6 fL (81-99); Mean Platelet Vol. 9.2 fl (6.2-12.0); Monocyte# 0.64 X10^3/uL; Monocyte% 6.2 % (0-10); NRBC Flagged by Analyzer 0 % (0-5); Neutrophil # 8.46 X10^3/uL (2.7-7.7); Neutrophil % 81.8 % (47-70); Platelet Count 690 K/mm3 (150-450); RBC Distribution Width SD 60.3 fl (35.1-43.9); Red Blood Count 3.64 M/mm3 (4.2-5.4); White Blood Count 10.3 K/mm3 (4.4-11.0)
[2022-04-24 13:50] LABS: Color, Urine Yellow (Yellow); Glucose, Dipstick Normal (Normal); Ketone-Dipstick Negative (Negative); Leukocyte Esterase-Dipstick 500 /ul (Negative); Nitrite-Dipstick Negative (Negative); Occult Blood-Urine 25 /ul (Negative); Protein-Dipstick Negative (Negative); Specific Gravity, Urine 1.015 (1.002-1.030); Urine Bilirubin Dipstick Negative (Negative); Urine Clarity Sl. Cloudy (Clear); Urine Urobilinogen Normal (Normal)
[2022-04-24 13:50] LABS: Anion Gap 8 (5-15); BUN 15 mg/dL (7-18); BUN/Creat Ratio 32.3 RATIO (10-20); Calcium,Total 8.3 mg/dL (8.5-10.1); Chloride 100 mmol/L (98-107); Creatinine, Serum 0.46 mg/dL (0.55-1.02); EST Glomerular Filtration Rate 140 mL/min (>60); Est Glom Filt Rate - Afr Amer 169 mL/min (>60); Glucose 102 mg/dL (74-106); Potassium 4.8 mmol/L (3.5-5.1); Sodium Level 136 mmol/L (136-145)
[2022-04-24 13:56] LABS: Bacteria 1+ /hpf (None Seen); Red Blood Cells-Urine 0-5 SEEN /hpf (0-5); Squamous Epithelial Cells - UA 0-5 SEEN /hpf (5-10); White Blood Cells 25-50 SEEN /hpf (0-5)
--- NOTE | 2022-04-24 14:01 | NURSING ---
1300-KUB results in, lactulose ordered. Updated patient on results. Called dtr Merlyn and updated on all new orders and results. She was thankful for update. 1100-Patient still having nausea, had another moderate BM but still feels abdominal fullness. Updated Dr Lyons, orders for labs, KUB, zofran, UA w/ culture. Also noted patient to have yeast infection, verbal order for fluconazole q72hrs x3 doses. 0900-patient very uncomfortable, complaining of abdominal pain, feels like she needs to had a BM. Meds give overnight but she didn't have good BM, feels rectal pressure and hasn't had any relief. Offered to try an enema and she was agreeable. Updated Dr. Lyons and received verbal order for SSE. Enema given, patient had large BM, felt some better but continues to have some abdominal pressure and nausea.
[2022-04-24 16:00] VITALS: BP 96/39; PULSE 58; RESP 14; TEMP 36.7; O2SAT 99
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
[2022-04-24] MEDS: Ensure Plus High Protein 120 ML LIQUID PO (17:42)
[2022-04-24] MEDS: Nystatin Powder 15gm Bottle 1 APPLIC TOPICAL (17:45)
[2022-04-24 18:30] VITALS: BP 106/54; PULSE 60
[2022-04-24] MEDS: Cefdinir 300 MG Capsule PO (19:29)
[2022-04-24] MEDS: Carbamide Peroxide 15 ML Bottle 5 DRP OTIC (20:15)
[2022-04-25] MEDS: oxyCODONE 5 MG Tablet PO ×4 (05:13→20:47)
[2022-04-25] MEDS: Cholecalciferol (VIT D3) 25 MCG TABLET (1,000 UNITS) 50 MCG PO (05:14)
[2022-04-25] MEDS: Polyethylene Glycol 3350 17 GM PACKET PO (05:14)
[2022-04-25] MEDS: Lidocaine 5% Patch 1 PATCH TOPICAL (05:14)
[2022-04-25] MEDS: Cefdinir 300 MG Capsule PO ×2 (05:15→18:25)
[2022-04-25] MEDS: Menthol/Lanolin/Calamine/Znox 113 GM Tube 1 APPLIC TOPICAL ×3 (05:15→21:22)
[2022-04-25] MEDS: Acetaminophen 500 MG Tablet 1000 MG PO ×3 (05:15→18:25)
[2022-04-25] MEDS: Senna/Docusate Sodium 1 Tablet 2 TABLET PO ×2 (05:15→18:25)
[2022-04-25] MEDS: Nystatin Powder 15gm Bottle 1 APPLIC TOPICAL ×2 (05:16→20:54)
[2022-04-25] MEDS: Sodium Chloride 0.65% 1 SPRAY SPRAY.BTL NASAL ×2 (05:20→20:55)
[2022-04-25 05:42] LABS: Absolute Lymphocyte Count 1.09 X10^3/uL (0.83-4.51); Absolute Neutrophil Count 5.3 X10^3/uL (2.0-7.7); Basophil# 0.04 X10^3/uL; Basophil% 0.6 % (0-1); Eosinophil# 0.06 X10^3/uL; Eosinophils% 0.8 % (0-5); Hematocrit 32.5 % (37-47); Hemoglobin 9.7 g/dL (12.0-15.0); Lymphocyte # 1.09 X10^3/ul (0.83-4.51); Lymphocyte % 15.4 % (19-41); Mean Corp Hgb Conc 29.8 g/dL (32-36); Mean Corpuscular Hgb 29.3 pg (27.0-32.0); Mean Corpuscular Volume 98.2 fL (81-99); Mean Platelet Vol. 9.3 fl (6.2-12.0); Monocyte# 0.54 X10^3/uL; Monocyte% 7.6 % (0-10); NRBC Flagged by Analyzer 0 % (0-5); Neutrophil # 5.33 X10^3/uL (2.7-7.7); Platelet Count 602 K/mm3 (150-450); RBC Distribution Width CV 17.2 % (11.6-14.6); RBC Distribution Width SD 61.9 fl (35.1-43.9); Red Blood Count 3.31 M/mm3 (4.2-5.4); White Blood Count 7.1 K/mm3 (4.4-11.0)
[2022-04-25 06:10] LABS: Anion Gap 5 (5-15); BUN 13 mg/dL (7-18); BUN/Creat Ratio 30.6 RATIO (10-20); Chloride 103 mmol/L (98-107); Creatinine, Serum 0.42 mg/dL (0.55-1.02); EST Glomerular Filtration Rate 155 mL/min (>60); Est Glom Filt Rate - Afr Amer 188 mL/min (>60); Glucose 100 mg/dL (74-106); Potassium 4.5 mmol/L (3.5-5.1); Sodium Level 136 mmol/L (136-145)
[2022-04-25] MEDS: Calcium (Elemental) 500 MG Tablet PO ×3 (08:53→18:25)
[2022-04-25] MEDS: Aspirin 81 MG TAB.CHEW PO (08:54)
[2022-04-25] MEDS: Ensure Plus High Protein 120 ML LIQUID PO ×2 (08:56→18:25)
[2022-04-25] MEDS: Gabapentin 300 MG Capsule PO ×3 (09:51→20:53)
[2022-04-25 10:00] VITALS: O2SAT 96
[2022-04-25] MEDS: Tuberculin,Purif.prot.deriv. 50 TU/ML Vial 0.1 ML ID (11:35)
[2022-04-25] MEDS: Petrolatum 33% Tube 1 APPLIC TOPICAL (13:54)
[2022-04-25 14:47] VITALS: BP 99/53; PULSE 58; RESP 14; TEMP 36.7; O2SAT 96
--- NOTE | 2022-04-25 16:44 | NURSING ---
left message with Dr Dax Pope regarding DC suture removal date, awaiting return call.
[2022-04-25] MEDS: Carbamide Peroxide 15 ML Bottle 5 DRP OTIC (20:56)
--- NOTE | 2022-04-26 03:02 | NURSING ---
acidophilus and lactaid time change to 0800 per pt. request
[2022-04-26] MEDS: oxyCODONE 5 MG Tablet PO ×5 (04:08→21:38)
[2022-04-26] MEDS: Menthol/Lanolin/Calamine/Znox 113 GM Tube 1 APPLIC TOPICAL ×3 (06:12→21:09)
[2022-04-26] MEDS: Nystatin Powder 15gm Bottle 1 APPLIC TOPICAL ×2 (06:12→17:30)
[2022-04-26] MEDS: Cholecalciferol (VIT D3) 25 MCG TABLET (1,000 UNITS) 50 MCG PO (06:13)
[2022-04-26] MEDS: Acetaminophen 500 MG Tablet 1000 MG PO ×3 (06:13→17:31)
[2022-04-26] MEDS: Cefdinir 300 MG Capsule PO ×2 (06:13→17:31)
[2022-04-26] MEDS: Polyethylene Glycol 3350 17 GM PACKET PO (06:14)
[2022-04-26] MEDS: Senna/Docusate Sodium 1 Tablet 2 TABLET PO ×2 (06:14→17:31)
--- NOTE | 2022-04-26 06:21 | NURSING ---
patient declines lidoderm patch at this times, states will accept later this morning after breakfast
[2022-04-26] MEDS: Lidocaine 5% Patch 1 PATCH TOPICAL (08:38)
[2022-04-26] MEDS: Calcium (Elemental) 500 MG Tablet PO ×3 (08:46→17:31)
[2022-04-26] MEDS: Aspirin 81 MG TAB.CHEW PO (08:46)
[2022-04-26] MEDS: Ensure Plus High Protein 120 ML LIQUID PO ×3 (08:51→17:27)
[2022-04-26] MEDS: Pantoprazole Sodium 20 MG Tablet PO (08:51)
[2022-04-26] MEDS: Gabapentin 300 MG Capsule PO ×3 (09:39→17:29)
[2022-04-26] MEDS: Magnesium Hydroxide 30 ML UDC PO (09:44)
--- NOTE | 2022-04-26 11:09 | CASEMGMT ---
Social Work IDT met with patient and dtr for care plan meeting. Discussed patient's progress in PT/OT/ST/SN. Educated to Medicare benefit. Encouraged to contact secondary insurance to ensure copay coverage. Pts goal is to return home or to dtrs home at DC closer to PLOF. SW offered ongoing supportive listening. SW to follow for DC planning. Cass Hodges, BLUE PRINTS TRIMMER BREAKFAST MANAGER
[2022-04-26 16:00] VITALS: BP 96/39; PULSE 80; RESP 14; TEMP 36.2; O2SAT 95
[2022-04-26] MEDS: Petrolatum 33% Tube 1 APPLIC TOPICAL (17:28)
[2022-04-26] MEDS: Carbamide Peroxide 15 ML Bottle 5 DRP OTIC (21:09)
[2022-04-27] MEDS: Senna/Docusate Sodium 1 Tablet 2 TABLET PO ×2 (04:18→17:16)
[2022-04-27] MEDS: Cholecalciferol (VIT D3) 25 MCG TABLET (1,000 UNITS) 50 MCG PO (04:18)
[2022-04-27] MEDS: Lidocaine 5% Patch 1 PATCH TOPICAL (04:18)
[2022-04-27] MEDS: Nystatin Powder 15gm Bottle 1 APPLIC TOPICAL ×2 (04:19→17:18)
[2022-04-27] MEDS: Cefdinir 300 MG Capsule PO ×2 (04:19→17:16)
[2022-04-27] MEDS: Polyethylene Glycol 3350 17 GM PACKET PO (04:19)
[2022-04-27] MEDS: Acetaminophen 500 MG Tablet 1000 MG PO ×3 (04:19→17:17)
[2022-04-27] MEDS: Menthol/Lanolin/Calamine/Znox 113 GM Tube 1 APPLIC TOPICAL ×3 (04:20→20:57)
[2022-04-27] MEDS: oxyCODONE 5 MG Tablet PO ×3 (04:27→21:04)
[2022-04-27] MEDS: Gabapentin 300 MG Capsule PO ×3 (09:02→17:20)
[2022-04-27] MEDS: Calcium (Elemental) 500 MG Tablet PO ×3 (09:03→17:17)
[2022-04-27] MEDS: Aspirin 81 MG TAB.CHEW PO (09:04)
[2022-04-27] MEDS: Petrolatum 33% Tube 1 APPLIC TOPICAL (09:05)
[2022-04-27] MEDS: FLUCONAZOLE 150 MG TABLET PO (09:06)
--- NOTE | 2022-04-27 09:13 | NURSING ---
pt states she is lactose intolerant and feels that Ensure is causing upset stomach and loose stools. changed to Ensure clear per pt request.
[2022-04-27] MEDS: Ondansetron 8 MG Tablet PO (12:23)
--- NOTE | 2022-04-27 14:16 | MDS.RN ---
Information for the mds was obtained from review of the clinical record, interview of resident, staff, and direct observation of resident's care.
--- NOTE | 2022-04-27 14:55 | NURSING ---
sutures removed by wound nurse from LT leg incisions.
[2022-04-27 15:00] VITALS: BP 109/57; PULSE 60; RESP 16; TEMP 36.4; O2SAT 98
--- NOTE | 2022-04-27 15:00 | WOUNDNOTE ---
sutures removed from the left lower leg. there was no drainage noted. incisions are well approximated. no sign of infection noted. applied betadine to the incisions and covered with dry dressings. wrapped with kerlix. reapplied the AMOS wrap. pt tolerated well. will continue to monitor.
--- NOTE | 2022-04-27 15:01 | WOUNDNOTE ---
wound photo: left lower leg
--- NOTE | 2022-04-27 15:02 | WOUNDNOTE ---
wound photo: left knee
--- NOTE | 2022-04-27 15:02 | WOUNDNOTE ---
wound photo: left foot
[2022-04-27 20:00] VITALS: PULSE 62; RESP 16; O2SAT 98
[2022-04-27] MEDS: Carbamide Peroxide 15 ML Bottle 5 DRP OTIC (20:55)
[2022-04-28] MEDS: oxyCODONE 5 MG Tablet PO ×4 (03:44→19:47)
[2022-04-28] MEDS: Cholecalciferol (VIT D3) 25 MCG TABLET (1,000 UNITS) 50 MCG PO (06:11)
[2022-04-28] MEDS: Polyethylene Glycol 3350 17 GM PACKET PO (06:11)
[2022-04-28] MEDS: Acetaminophen 500 MG Tablet 1000 MG PO ×3 (06:11→17:58)
[2022-04-28] MEDS: Menthol/Lanolin/Calamine/Znox 113 GM Tube 1 APPLIC TOPICAL ×3 (06:11→19:49)
[2022-04-28] MEDS: Cefdinir 300 MG Capsule PO ×2 (06:12→17:58)
[2022-04-28] MEDS: Senna/Docusate Sodium 1 Tablet 2 TABLET PO (06:12)
--- NOTE | 2022-04-28 06:21 | NURSING ---
declines lidoderm patch at this time, patient states will accept later this morning before therapy
[2022-04-28] MEDS: Ondansetron 8 MG Tablet PO ×2 (08:30→16:46)
[2022-04-28] MEDS: Calcium (Elemental) 500 MG Tablet PO ×3 (09:17→17:58)
[2022-04-28] MEDS: Gabapentin 300 MG Capsule PO ×3 (09:17→17:56)
[2022-04-28] MEDS: Aspirin 81 MG TAB.CHEW PO (09:18)
[2022-04-28] MEDS: Lidocaine 5% Patch 1 PATCH TOPICAL (09:18)
[2022-04-28] MEDS: Pantoprazole Sodium 20 MG Tablet PO (11:44)
[2022-04-28] MEDS: Petrolatum 33% Tube 1 APPLIC TOPICAL (11:44)
[2022-04-28] MEDS: Nystatin Powder 15gm Bottle 1 APPLIC TOPICAL ×2 (11:53→19:49)
--- NOTE | 2022-04-28 16:02 | CASEMGMT ---
Social Work Notified by nursing about having some concerns with how pt was speaking of relationship with dtr and asked to follow up. SW met with patient and held conversation at length. Pt shared she walked 300 ft with therapy today and was very proud of her accomplishment. Praised pt for progress, being strong and having great motivation and determination. Inquired about home-going plans, if pt feels she can return home or transition to dtr's house. Pt explained she would like to go home as she does not want to impose on dtr's home/life. However, pt is not opposed to going to dtr's house. Pt stated her and dtr's relationship has changed. SW explored that statement further. Pt explained since pt had COVID, she had less involvement in family events, staying home more, experiencing brain fog, feeling tired. Pt denied any conflict with dtr, states pt and dtr are very close and always have been, but internally struggles with missing out on family affairs. Pt stated her KRISTEN just yesterday and apologized for being emotional. SW offered condolences and emotional support. Pt stated since COVID, pt has not seen sister and KRISTEN as much. Pt shared memories of KRISTEN, along with other family memories. SW and pt discussed further about different memories with family, reframing mindset to being grateful for the memories and past experiences instead of focusing on negatives, and changes. Although, allowing self to mourn loss and changes in abilities and lifestyle. Validated feelings and acknowledged losses. Continued to encourage strength and celebration of the small successes in recovery. Pt appreciative of visit and praised several staff members for assisting her these past couple days. SW offered ongoing support throughout stay. Cass Hodges, JAMIR CALDERONW
[2022-04-28 20:00] VITALS: PULSE 64; RESP 16; O2SAT 97
[2022-04-29] MEDS: oxyCODONE 5 MG Tablet PO ×3 (05:57→18:19)
[2022-04-29] MEDS: Ondansetron 8 MG Tablet PO ×2 (05:57→12:49)
[2022-04-29] MEDS: Cholecalciferol (VIT D3) 25 MCG TABLET (1,000 UNITS) 50 MCG PO (05:59)
[2022-04-29] MEDS: Cefdinir 300 MG Capsule PO ×2 (05:59→18:04)
[2022-04-29] MEDS: Senna/Docusate Sodium 1 Tablet 2 TABLET PO ×2 (05:59→18:04)
[2022-04-29] MEDS: Menthol/Lanolin/Calamine/Znox 113 GM Tube 1 APPLIC TOPICAL ×3 (06:00→22:13)
[2022-04-29] MEDS: Lidocaine 5% Patch 1 PATCH TOPICAL (06:20)
[2022-04-29] MEDS: Gabapentin 300 MG Capsule PO ×3 (08:29→18:03)
[2022-04-29] MEDS: Calcium (Elemental) 500 MG Tablet PO ×3 (08:30→18:04)
[2022-04-29] MEDS: Aspirin 81 MG TAB.CHEW PO (08:32)
[2022-04-29] MEDS: Nystatin Powder 15gm Bottle 1 APPLIC TOPICAL ×2 (11:23→22:13)
[2022-04-29] MEDS: Petrolatum 33% Tube 1 APPLIC TOPICAL (11:23)
[2022-04-29] MEDS: Acetaminophen 500 MG Tablet 1000 MG PO ×2 (11:24→18:05)
[2022-04-29 13:05] VITALS: BP 102/52; PULSE 56; RESP 16; TEMP 36.6; O2SAT 96
[2022-04-30] MEDS: Cefdinir 300 MG Capsule PO ×2 (06:42→18:10)
[2022-04-30] MEDS: Cholecalciferol (VIT D3) 25 MCG TABLET (1,000 UNITS) 50 MCG PO (06:43)
[2022-04-30] MEDS: Acetaminophen 500 MG Tablet 1000 MG PO ×3 (06:43→18:10)
[2022-04-30] MEDS: Senna/Docusate Sodium 1 Tablet 2 TABLET PO ×2 (06:43→18:11)
[2022-04-30] MEDS: Lidocaine 5% Patch 1 PATCH TOPICAL (06:44)
[2022-04-30] MEDS: Menthol/Lanolin/Calamine/Znox 113 GM Tube 1 APPLIC TOPICAL ×3 (06:47→21:41)
[2022-04-30] MEDS: oxyCODONE 5 MG Tablet PO ×3 (06:58→21:34)
[2022-04-30] MEDS: Calcium (Elemental) 500 MG Tablet PO ×3 (07:55→18:10)
[2022-04-30] MEDS: Aspirin 81 MG TAB.CHEW PO (07:55)
[2022-04-30] MEDS: Gabapentin 300 MG Capsule PO ×3 (07:58→18:08)
[2022-04-30] MEDS: Ondansetron 8 MG Tablet PO ×3 (09:48→21:39)
[2022-04-30 10:00] VITALS: PULSE 56; O2SAT 96
[2022-04-30] MEDS: Petrolatum 33% Tube 1 APPLIC TOPICAL (11:10)
[2022-04-30] MEDS: Nystatin Powder 15gm Bottle 1 APPLIC TOPICAL ×2 (11:22→21:40)
[2022-04-30] MEDS: FLUCONAZOLE 150 MG TABLET PO (11:27)
[2022-04-30] MEDS: Pantoprazole Sodium 20 MG Tablet PO (11:28)
[2022-04-30 14:46] VITALS: BP 98/52; PULSE 57; RESP 16; TEMP 36.4; O2SAT 98
--- NOTE | 2022-04-30 19:58 | PCA ---
Patient did not wish to get washed tonight stating they had taken care of everything earlier and did need anything further
[2022-04-30] MEDS: Sodium Chloride 0.65% 1 SPRAY SPRAY.BTL NASAL (22:03)
[2022-05-01] MEDS: Menthol/Lanolin/Calamine/Znox 113 GM Tube 1 APPLIC TOPICAL ×3 (06:07→20:00)
[2022-05-01] MEDS: Lidocaine 5% Patch 1 PATCH TOPICAL (06:08)
[2022-05-01] MEDS: Acetaminophen 500 MG Tablet 1000 MG PO ×3 (06:09→18:07)
[2022-05-01] MEDS: Cefdinir 300 MG Capsule PO ×2 (06:09→18:06)
[2022-05-01] MEDS: Cholecalciferol (VIT D3) 25 MCG TABLET (1,000 UNITS) 50 MCG PO (06:10)
[2022-05-01] MEDS: Senna/Docusate Sodium 1 Tablet 2 TABLET PO ×2 (06:10→18:07)
[2022-05-01] MEDS: oxyCODONE 5 MG Tablet PO ×3 (06:13→20:03)
[2022-05-01] MEDS: Ondansetron 8 MG Tablet PO ×3 (06:14→18:58)
--- NOTE | 2022-05-01 09:41 | WOUNDNOTE ---
wound photo: left foot
--- NOTE | 2022-05-01 09:41 | WOUNDNOTE ---
wound photo: left lower leg
--- NOTE | 2022-05-01 09:41 | WOUNDNOTE ---
wound photo: left knee
[2022-05-01] MEDS: Gabapentin 300 MG Capsule PO ×3 (09:47→18:05)
[2022-05-01] MEDS: Calcium (Elemental) 500 MG Tablet PO ×3 (09:48→18:06)
[2022-05-01] MEDS: Petrolatum 33% Tube 1 APPLIC TOPICAL (09:49)
[2022-05-01] MEDS: Nystatin Powder 15gm Bottle 1 APPLIC TOPICAL ×2 (09:49→20:00)
[2022-05-01] MEDS: Aspirin 81 MG TAB.CHEW PO (09:49)
[2022-05-01 10:00] VITALS: PULSE 56; RESP 16; O2SAT 96
[2022-05-01 14:13] VITALS: BP 101/56; PULSE 53; RESP 14; TEMP 35.9; O2SAT 96
--- NOTE | 2022-05-01 17:40 | RAD_ITS ---
EXAM: XR ABDOMEN, 1 VIEW CLINICAL INDICATION: Nausea, dry heaves. TECHNIQUE: Frontal supine view of the abdomen/pelvis. This report was created using [employer] report generation technology. COMPARISON: 06/24/2021 FINDINGS: LOWER THORAX: No acute pathology. INTRAPERITONEAL SPACE: There is a tubular collection of gas seen inferior pelvis and possibly represent bowel. No obvious free air identified. GASTROINTESTINAL TRACT: Unremarkable. Non-obstructive. No bowel or stomach distention. ORGANS: Unremarkable as visualized. No organomegaly. No abnormal calcifications. BONES/JOINTS: With the screw is again seen across the right sacroiliac joint. There is hardware across right hip fracture. There are fractures seen of the great superior-inferior pubic rami as well as the left inferior pubic ramus. SOFT TISSUES: No acute pathology. OTHER FINDINGS: Calcifications again seen left upper quadrant unchanged. RAD/Abdomen Single View IMPRESSION: No significant change from the reference exam. There is stable fractures of the pubic rami with orthopedic hardware present. There is no evidence of obstruction. If indicated further evaluation with CT scan may be beneficial. Electronically Signed: Braulio Roach MD at 18:05 EST ,
[2022-05-01 17:46] LABS: Absolute Neutrophil Count 4.1 X10^3/uL (2.0-7.7); Basophil# 0.05 X10^3/uL; Basophil% 0.8 % (0-1); Eosinophil# 0.14 X10^3/uL; Eosinophils% 2.2 % (0-5); Hematocrit 34.8 % (37-47); Hemoglobin 10.6 g/dL (12.0-15.0); Lymphocyte % 26.1 % (19-41); Mean Corp Hgb Conc 30.5 g/dL (32-36); Mean Corpuscular Hgb 29.5 pg (27.0-32.0); Mean Corpuscular Volume 96.9 fL (81-99); Mean Platelet Vol. 9.1 fl (6.2-12.0); Monocyte# 0.55 X10^3/uL; Monocyte% 8.4 % (0-10); NRBC Flagged by Analyzer 0 % (0-5); Neutrophil # 4.05 X10^3/uL (2.7-7.7); Neutrophil % 62.2 % (47-70); Platelet Count 420 K/mm3 (150-450); RBC Distribution Width CV 16.1 % (11.6-14.6); RBC Distribution Width SD 57.8 fl (35.1-43.9); Red Blood Count 3.59 M/mm3 (4.2-5.4); White Blood Count 6.5 K/mm3 (4.4-11.0)
[2022-05-01 17:52] LABS: Anion Gap 5 (5-15); BUN 18 mg/dL (7-18); BUN/Creat Ratio 27.4 RATIO (10-20); Calcium,Total 8.6 mg/dL (8.5-10.1); Chloride 103 mmol/L (98-107); Creatinine, Serum 0.66 mg/dL (0.55-1.02); EST Glomerular Filtration Rate 94 mL/min (>60); Est Glom Filt Rate - Afr Amer 113 mL/min (>60); Glucose 114 mg/dL (74-106); Potassium 4.4 mmol/L (3.5-5.1); Sodium Level 138 mmol/L (136-145)
--- NOTE | 2022-05-01 18:19 | NURSING ---
Pt c/o nausea after eating today that has lasted several days and had episode of dry heaving after breakfast without emesis. Dr. Thurman made aware and ordered UA c&s, labs, and KUB. Awaiting results.
[2022-05-01 19:18] LABS: Mucous, Urine 0 SEEN /hpf (<or=2+); Squamous Epithelial Cells - UA 0 SEEN /hpf (5-10)
[2022-05-01 19:20] LABS: Color, Urine Yellow (Yellow); Glucose, Dipstick Normal (Normal); Ketone-Dipstick Negative (Negative); Leukocyte Esterase-Dipstick 500 /ul (Negative); Nitrite-Dipstick Negative (Negative); Occult Blood-Urine 50 /ul (Negative); Protein-Dipstick 30 mg/dl (Negative); Urine Bilirubin Dipstick Negative (Negative); Urine Clarity Sl. Cloudy (Clear); Urine Urobilinogen Normal (Normal); Urine pH 6.5 (5.0 - 8.0)
[2022-05-01 19:30] LABS: Red Blood Cells-Urine 5-10 SEEN /hpf (0-5); White Blood Cells 50-100 SEEN /hpf (0-5)
[2022-05-01 19:31] LABS: Bacteria 1+ /hpf (None Seen)
[2022-05-01] MEDS: Nitrofurantoin Macrocrystals 100 MG Capsule PO (20:02)
[2022-05-01] MEDS: Sodium Chloride 0.65% 1 SPRAY SPRAY.BTL NASAL (20:04)
[2022-05-02] MEDS: Menthol/Lanolin/Calamine/Znox 113 GM Tube 1 APPLIC TOPICAL ×3 (05:39→20:49)
[2022-05-02] MEDS: Nitrofurantoin Macrocrystals 100 MG Capsule PO ×2 (05:40→17:42)
[2022-05-02] MEDS: Senna/Docusate Sodium 1 Tablet 2 TABLET PO ×2 (05:40→17:42)
[2022-05-02] MEDS: Acetaminophen 500 MG Tablet 1000 MG PO ×3 (05:40→17:43)
[2022-05-02] MEDS: Lidocaine 5% Patch 1 PATCH TOPICAL (05:41)
[2022-05-02] MEDS: Cholecalciferol (VIT D3) 25 MCG TABLET (1,000 UNITS) 50 MCG PO (05:41)
[2022-05-02] MEDS: oxyCODONE 5 MG Tablet PO ×3 (05:48→20:35)
[2022-05-02] MEDS: Ondansetron 8 MG Tablet PO ×3 (05:51→17:47)
[2022-05-02 05:54] LABS: Absolute Lymphocyte Count 1.49 X10^3/uL (0.83-4.51); Absolute Neutrophil Count 4.7 X10^3/uL (2.0-7.7); Basophil# 0.06 X10^3/uL; Basophil% 0.9 % (0-1); Eosinophil# 0.14 X10^3/uL; Hematocrit 35.3 % (37-47); Hemoglobin 10.6 g/dL (12.0-15.0); Lymphocyte # 1.49 X10^3/ul (0.83-4.51); Lymphocyte % 21.3 % (19-41); Mean Corpuscular Hgb 29.2 pg (27.0-32.0); Mean Corpuscular Volume 97.2 fL (81-99); Monocyte# 0.56 X10^3/uL; NRBC Flagged by Analyzer 0 % (0-5); Neutrophil % 67.4 % (47-70); Platelet Count 410 K/mm3 (150-450); RBC Distribution Width CV 16.2 % (11.6-14.6); RBC Distribution Width SD 57.8 fl (35.1-43.9); Red Blood Count 3.63 M/mm3 (4.2-5.4)
[2022-05-02 06:21] LABS: Anion Gap 4 (5-15); BUN 15 mg/dL (7-18); BUN/Creat Ratio 29.3 RATIO (10-20); Calcium,Total 8.8 mg/dL (8.5-10.1); Chloride 103 mmol/L (98-107); Creatinine, Serum 0.51 mg/dL (0.55-1.02); EST Glomerular Filtration Rate 125 mL/min (>60); Est Glom Filt Rate - Afr Amer 151 mL/min (>60); Glucose 109 mg/dL (74-106); Potassium 4.5 mmol/L (3.5-5.1); Sodium Level 136 mmol/L (136-145)
[2022-05-02] MEDS: Gabapentin 300 MG Capsule PO ×3 (09:23→17:38)
[2022-05-02] MEDS: Aspirin 81 MG TAB.CHEW PO (09:23)
[2022-05-02] MEDS: Pantoprazole Sodium 20 MG Tablet PO (09:30)
[2022-05-02] MEDS: Nystatin Powder 15gm Bottle 1 APPLIC TOPICAL ×2 (09:30→20:48)
[2022-05-02] MEDS: Calcium (Elemental) 500 MG Tablet PO ×3 (09:30→17:42)
[2022-05-02] MEDS: Petrolatum 33% Tube 1 APPLIC TOPICAL (09:31)
--- NOTE | 2022-05-02 11:03 | NURSING ---
Entered room to change dressing to LT LE and noted pt tearful. asked if she was ok, she stated no but needed much encouragement to express her concerns. pt does not feel like she is making progress. offered the magazine filler or PASSEMENTERIE WORKER for more emotional support and pt declined. stated no, I can't trust anybody, I found that out with my family 1:1 support provided. Therapy waiting to see pt, updated therapy as well.
[2022-05-02 11:17] VITALS: RESP 16; O2SAT 97
[2022-05-02 14:47] VITALS: BP 97/51; PULSE 54; RESP 14; TEMP 36.3; O2SAT 98
[2022-05-02] MEDS: Bisacodyl 10 MG Suppository RC (14:53)
--- NOTE | 2022-05-02 15:15 | NURSING ---
pt having difficulty w/BM, administer dulcolax suppository per pt request.
[2022-05-02] MEDS: Magnesium Hydroxide 30 ML UDC PO (19:29)
[2022-05-03] MEDS: Menthol/Lanolin/Calamine/Znox 113 GM Tube 1 APPLIC TOPICAL ×3 (05:24→21:06)
[2022-05-03] MEDS: Cholecalciferol (VIT D3) 25 MCG TABLET (1,000 UNITS) 50 MCG PO (05:25)
[2022-05-03] MEDS: Lidocaine 5% Patch 1 PATCH TOPICAL (05:25)
[2022-05-03] MEDS: Acetaminophen 500 MG Tablet 1000 MG PO ×3 (05:25→18:04)
[2022-05-03] MEDS: Nitrofurantoin Macrocrystals 100 MG Capsule PO ×2 (05:25→18:05)
[2022-05-03] MEDS: Ondansetron 8 MG Tablet PO ×3 (05:29→17:14)
[2022-05-03] MEDS: oxyCODONE 5 MG Tablet PO ×3 (05:33→21:02)
[2022-05-03] MEDS: Gabapentin 300 MG Capsule PO ×3 (09:03→18:04)
[2022-05-03] MEDS: Calcium (Elemental) 500 MG Tablet PO ×3 (09:04→18:04)
[2022-05-03] MEDS: Aspirin 81 MG TAB.CHEW PO (09:06)
[2022-05-03] MEDS: Nystatin Powder 15gm Bottle 1 APPLIC TOPICAL ×2 (09:07→21:05)
[2022-05-03] MEDS: Petrolatum 33% Tube 1 APPLIC TOPICAL (09:07)
--- NOTE | 2022-05-03 14:03 | WOUNDNOTE ---
wound photo: left buttock
--- NOTE | 2022-05-03 15:37 | CHAPLAIN ---
Type of Pastoral Visit _x__ Initial Visit ___ Follow-up Visit ___ On-call Visit ___ General Patient Visit ___ Spiritual Assessment ___ Family Conference ___ Bereavement ___ Rapid Response ___ Code Blue ___ Other (describe below) Pastoral Care Referral From ___ Patient ___ Family _x__ Nurse ___ Physician ___ Window Air Conditioner Installer ___ Electrical Design Technologist ___ Other (describe below) Sacrament/Intervention _x__ Active listening ___ Anointing ___ Moravian ___ Bereavement ___ Communion ___ Анна exploration ___ ___ Life review _x__ Prayer ___ Reconciliation ___ Sacrament of Sick _x__ Supportive presence ___ Wedding ___ Other (describe below) Pastoral Comments patient was lying in down being very quiet; RN had recommended an offer of visit to this patient due to RN concerns over her emotional well being; pt states that she has some nausea and does not feel much like having company but willing to have a brief visit; pt is asked more about how she is feeling, how she is coping, and pt responds that overall she feels like she is doing okay; pt states that she used to be active in buddhist but hasn't much since her was sick and then and then with Covid; pt says she watches buddhist on TV from her daughters buddhist in [place]; pt welcomed prayer support and the offer of another visit next week with that is fine, I'll be here for awhile;
[2022-05-03 17:09] VITALS: BP 95/51; PULSE 57; RESP 12; TEMP 36.6; O2SAT 97
[2022-05-03] MEDS: Sodium Chloride 0.65% 1 SPRAY SPRAY.BTL NASAL (21:09)
[2022-05-03 23:49] VITALS: PULSE 56; RESP 16; O2SAT 96
[2022-05-04] MEDS: oxyCODONE 5 MG Tablet PO ×3 (06:54→21:29)
[2022-05-04] MEDS: Cholecalciferol (VIT D3) 25 MCG TABLET (1,000 UNITS) 50 MCG PO (06:55)
[2022-05-04] MEDS: Ondansetron 8 MG Tablet PO ×3 (06:55→21:29)
[2022-05-04] MEDS: Senna/Docusate Sodium 1 Tablet 2 TABLET PO ×2 (06:55→16:58)
[2022-05-04] MEDS: Acetaminophen 500 MG Tablet 1000 MG PO ×3 (06:55→16:58)
[2022-05-04] MEDS: Nitrofurantoin Macrocrystals 100 MG Capsule PO ×2 (06:55→16:58)
[2022-05-04] MEDS: Menthol/Lanolin/Calamine/Znox 113 GM Tube 1 APPLIC TOPICAL ×3 (06:56→21:30)
[2022-05-04] MEDS: Lidocaine 5% Patch 1 PATCH TOPICAL (06:56)
[2022-05-04] MEDS: Gabapentin 300 MG Capsule PO ×3 (08:53→16:55)
[2022-05-04] MEDS: Calcium (Elemental) 500 MG Tablet PO ×3 (08:54→16:55)
[2022-05-04] MEDS: Aspirin 81 MG TAB.CHEW PO (08:56)
[2022-05-04] MEDS: Pantoprazole Sodium 20 MG Tablet PO (08:56)
[2022-05-04] MEDS: Nystatin Powder 15gm Bottle 1 APPLIC TOPICAL ×2 (08:57→21:30)
[2022-05-04] MEDS: Petrolatum 33% Tube 1 APPLIC TOPICAL (08:57)
[2022-05-04 14:56] VITALS: BP 97/53; PULSE 79; RESP 16; TEMP 36.3; O2SAT 99
[2022-05-05] MEDS: Ondansetron 8 MG Tablet PO (04:49)
[2022-05-05] MEDS: Magnesium Hydroxide 30 ML UDC PO (04:51)
[2022-05-05] MEDS: oxyCODONE 5 MG Tablet PO ×3 (06:51→18:42)
[2022-05-05] MEDS: Acetaminophen 500 MG Tablet 1000 MG PO ×3 (06:52→18:24)
[2022-05-05] MEDS: Senna/Docusate Sodium 1 Tablet 2 TABLET PO ×2 (06:52→18:23)
[2022-05-05] MEDS: Cholecalciferol (VIT D3) 25 MCG TABLET (1,000 UNITS) 50 MCG PO (06:52)
[2022-05-05] MEDS: Nitrofurantoin Macrocrystals 100 MG Capsule PO ×2 (06:52→18:23)
[2022-05-05] MEDS: Menthol/Lanolin/Calamine/Znox 113 GM Tube 1 APPLIC TOPICAL ×3 (06:54→22:22)
[2022-05-05] MEDS: Lidocaine 5% Patch 1 PATCH TOPICAL (06:57)
--- NOTE | 2022-05-05 08:11 | NURSING ---
Pt continues to c/o pain and nausea. Zofran, crackers, cookies, velma mirella, and water all ineffective. Pt noted to be restless, teary, and voices anxious thoughts. 1:1 given w/ emotional support, semi effective.
[2022-05-05] MEDS: Calcium (Elemental) 500 MG Tablet PO ×3 (08:39→18:22)
[2022-05-05] MEDS: Gabapentin 300 MG Capsule PO ×3 (08:39→18:22)
[2022-05-05] MEDS: Aspirin 81 MG TAB.CHEW PO (08:40)
--- NOTE | 2022-05-05 09:49 | RAD_ITS ---
HISTORY: Persistent nausea. TECHNIQUE: XR Abdomen 1 View. COMPARISON: 05/01/2022. FINDINGS: BOWEL GAS PATTERN: No dilated bowel loops identified. Moderate to large amount stool in the colon. Right lower quadrant suture. FREE AIR: Not assessed on supine view. BONES: ORIF right pelvic and hip fractures. SOFT TISSUES: Mild opacity in the right lung base. RAD/Abdomen Single View IMPRESSION: Moderate to large amount stool in the colon. Mild right basilar pneumonia or atelectasis. Electronically Signed: Juanis Bernabe MD at 13:19 EST ,
[2022-05-05] MEDS: Petrolatum 33% Tube 1 APPLIC TOPICAL (10:23)
[2022-05-05] MEDS: Nystatin Powder 15gm Bottle 1 APPLIC TOPICAL ×2 (10:23→22:21)
[2022-05-05] MEDS: proMETHazine 25 MG Tablet PO (13:38)
[2022-05-05 15:29] VITALS: BP 114/55; PULSE 55; RESP 16; TEMP 36.5; O2SAT 98
[2022-05-05 22:00] VITALS: PULSE 53; RESP 16; O2SAT 94
[2022-05-05] MEDS: Electrolyte Solution/Peg's 4000 ML 1000 ML PO (22:15)
[2022-05-06] MEDS: proMETHazine 25 MG Tablet PO ×4 (03:53→22:36)
[2022-05-06] MEDS: oxyCODONE 5 MG Tablet PO ×3 (03:58→18:33)
[2022-05-06] MEDS: Nitrofurantoin Macrocrystals 100 MG Capsule PO ×2 (06:28→18:25)
[2022-05-06] MEDS: Acetaminophen 500 MG Tablet 1000 MG PO ×3 (06:29→18:26)
[2022-05-06] MEDS: Senna/Docusate Sodium 1 Tablet 2 TABLET PO ×2 (06:30→18:26)
[2022-05-06] MEDS: Cholecalciferol (VIT D3) 25 MCG TABLET (1,000 UNITS) 50 MCG PO (06:30)
[2022-05-06] MEDS: Menthol/Lanolin/Calamine/Znox 113 GM Tube 1 APPLIC TOPICAL ×3 (06:31→22:15)
[2022-05-06] MEDS: Lidocaine 5% Patch 1 PATCH TOPICAL (06:31)
[2022-05-06] MEDS: Gabapentin 300 MG Capsule PO ×3 (08:28→18:25)
[2022-05-06] MEDS: Calcium (Elemental) 500 MG Tablet PO ×2 (08:31→12:12)
[2022-05-06] MEDS: Aspirin 81 MG TAB.CHEW PO (08:31)
[2022-05-06] MEDS: Petrolatum 33% Tube 1 APPLIC TOPICAL (08:37)
[2022-05-06] MEDS: Nystatin Powder 15gm Bottle 1 APPLIC TOPICAL ×2 (08:37→22:16)
[2022-05-06] MEDS: Pantoprazole Sodium 20 MG Tablet PO (08:38)
[2022-05-06] MEDS: Bisacodyl 10 MG Suppository RC (13:30)
--- NOTE | 2022-05-06 13:43 | NURSING ---
4 dilma removed from pt RT proximal hip incision, all other incisions GRISEL with no dilma. all incisions well approximated, no s/s infection
[2022-05-06 13:44] VITALS: PULSE 68; RESP 18; O2SAT 96
[2022-05-06 14:38] VITALS: BP 101/51; PULSE 57; RESP 18; TEMP 37.2; O2SAT 99
[2022-05-06] MEDS: Lactulose 20 GM/30 ML UDC 200 GM RC (15:35)
--- NOTE | 2022-05-06 15:40 | NURSING ---
lactulose enema administered per order, pt did have mod amt of hard and soft stool but feels she could go more but pt refused to get on BSC or bedpan. pt tearful and stated they are gonna send me to a fdc if I don't poop much 1:1 emotional support given. much reminders given that pt is doing good and slowly improving which is not uncommon for her injuries. pt smiles and then no more weeping. emotional lability noted throughout shift.
--- NOTE | 2022-05-06 22:53 | NURSING ---
Pt cont. to c/o pain, nausea, and constipation. When T&R pt c/o pain increasing, requests to readjust back as she was. Voices she wants Phenergan for nausea, but not oxy d/t nausea. This nurse suggested to sit on toilet or bed cheung to try and actively try and have a BM, pt denies stating that it is ineffective. This nurse also suggested PRN Xanax to help w/ her racing thoughts and increased restlessness d/t condition, pt denies again. Pt stated that she wonders if she should have another pharm. intervention to get her bowels moving. This nurse explained that some of the medications she has already received may take some time to have results. Pt voices understanding.
[2022-05-07] MEDS: oxyCODONE 5 MG Tablet PO ×2 (03:21→22:11)
[2022-05-07] MEDS: Menthol/Lanolin/Calamine/Znox 113 GM Tube 1 APPLIC TOPICAL ×3 (06:10→22:09)
[2022-05-07] MEDS: Senna/Docusate Sodium 1 Tablet 2 TABLET PO ×2 (06:11→17:03)
[2022-05-07] MEDS: Acetaminophen 500 MG Tablet 1000 MG PO ×3 (06:12→17:03)
[2022-05-07] MEDS: Cholecalciferol (VIT D3) 25 MCG TABLET (1,000 UNITS) 50 MCG PO (06:12)
[2022-05-07] MEDS: Lidocaine 5% Patch 1 PATCH TOPICAL (06:12)
[2022-05-07] MEDS: Nitrofurantoin Macrocrystals 100 MG Capsule PO ×2 (06:12→17:03)
[2022-05-07 06:22] VITALS: BP 108/59; PULSE 58
--- NOTE | 2022-05-07 07:16 | NURSING ---
Pt c/o nausea, but voices she still wanted her AM meds. Shortly after pt took her medications she had a small emesis. Emesis noted to appear as undigested cracker.
[2022-05-07] MEDS: Calcium (Elemental) 500 MG Tablet PO ×3 (09:12→17:03)
[2022-05-07] MEDS: Polyethylene Glycol 3350 17 GM PACKET PO (09:12)
[2022-05-07] MEDS: Aspirin 81 MG TAB.CHEW PO (09:14)
[2022-05-07] MEDS: Nystatin Powder 15gm Bottle 1 APPLIC TOPICAL ×2 (09:14→22:08)
[2022-05-07] MEDS: Petrolatum 33% Tube 1 APPLIC TOPICAL (09:14)
[2022-05-07] MEDS: Gabapentin 300 MG Capsule PO ×3 (09:17→17:09)
[2022-05-07] MEDS: proMETHazine 25 MG Tablet PO (09:26)
[2022-05-07 15:10] VITALS: BP 107/61; PULSE 60; RESP 16; TEMP 36.7; O2SAT 94
--- NOTE | 2022-05-07 22:30 | NURSING ---
Spoke w/ pt regarding nausea. Thinks Phenergan is not working and makes her dry mouth worse. Explained differences between Zofran and Phenergan. Informed pt root cause of nausea needs to be determined as no medication will relieve symptoms if the cause is not identified. Pt verbalizes she has not been able to sleep. Discussed issues w/ anxiety. Informed pt she has an order for Xanax and she refuses take medication. She denies she has anxiety and states, everyone that is old who comes into the hospital is told they have anxiety and is given this medication with bad outcomes. References this statement in regard to someone she was acquainted with. Discussed situational versus chronic anxiety and educated that Xanax is not prescribed for every patient. Educated on the desired effects of Xanax. Pt continues to refuse to take the medication at this time. Informed pt she needs to lay on her sides to prevent continued progression of the wound to her buttock. Pt does not wish to lay on her side because of the pain. Has not been taking dose of scheduled Tylenol at midnight as she does not wish to be awoken. Has been receiving Oxycodone as needed per pt request. Will continue to monitor.
[2022-05-08] MEDS: Lidocaine 5% Patch 1 PATCH TOPICAL (06:17)
[2022-05-08] MEDS: Menthol/Lanolin/Calamine/Znox 113 GM Tube 1 APPLIC TOPICAL ×3 (06:17→21:33)
[2022-05-08] MEDS: Acetaminophen 500 MG Tablet 1000 MG PO ×3 (06:18→17:51)
--- NOTE | 2022-05-08 06:25 | NURSING ---
Pt refusing to be turned this morning, c/o pain in her back and tailbone, explained to pt that turning on her side and having a pillow behind her would take pressure off that area, pt t that she doesn't feel like it helps. Also refused offer of Oxy at this time, did take Tylenol. Will continue to monitor.
--- NOTE | 2022-05-08 07:58 | NURSING ---
Pt lying supine in bed. Wishes to have top blanket removed due to feeling warm when temperature was adjusted in the room. Strongly encouraged pt again on the importance of laying on her side to relieve pressure from buttock wound. Informed pt a pillow may be placed between her knees and ankles to relieve pressure and can be medicated prior to turning to help ease pain.
[2022-05-08] MEDS: Gabapentin 300 MG Capsule PO ×3 (08:19→17:51)
[2022-05-08] MEDS: Calcium (Elemental) 500 MG Tablet PO ×3 (08:20→17:51)
[2022-05-08] MEDS: Aspirin 81 MG TAB.CHEW PO (08:20)
[2022-05-08] MEDS: Nitrofurantoin Macrocrystals 100 MG Capsule PO ×2 (08:21→17:52)
[2022-05-08] MEDS: Cholecalciferol (VIT D3) 25 MCG TABLET (1,000 UNITS) 50 MCG PO (08:22)
[2022-05-08] MEDS: Senna/Docusate Sodium 1 Tablet 2 TABLET PO ×2 (08:23→17:51)
[2022-05-08] MEDS: Nystatin Powder 15gm Bottle 1 APPLIC TOPICAL ×2 (09:05→21:34)
[2022-05-08] MEDS: Petrolatum 33% Tube 1 APPLIC TOPICAL (09:05)
[2022-05-08] MEDS: Pantoprazole Sodium 20 MG Tablet PO (09:15)
[2022-05-08] MEDS: oxyCODONE 5 MG Tablet PO ×3 (09:24→21:33)
[2022-05-08 09:27] VITALS: PULSE 61; O2SAT 97
--- NOTE | 2022-05-08 12:09 | NURSING ---
Spoke with scheduling staff for Dr. Pope, updated on daughter's request for appt on a MWF b/t 10-12:00. They will have their secretary to the vice president call back with a date and time.
[2022-05-08 13:31] VITALS: BP 117/60; PULSE 62; RESP 14; TEMP 37.1; O2SAT 97
--- NOTE | 2022-05-08 17:02 | CHAPLAIN ---
Type of Pastoral Visit ___ Initial Visit _x__ Follow-up Visit ___ On-call Visit ___ General Patient Visit ___ Spiritual Assessment ___ Family Conference ___ Bereavement ___ Rapid Response ___ Code Blue ___ Other (describe below) Pastoral Care Referral From _x__ Patient ___ Family ___ Nurse ___ Physician ___ Stranner ___ Vat Operator ___ Other (describe below) Sacrament/Intervention ___ Active listening ___ Anointing ___ Mandaen ___ Bereavement ___ Communion ___ Анна exploration ___ ___ Life review ___ Prayer ___ Reconciliation ___ Sacrament of Sick _x__ Supportive presence ___ Wedding ___ Other (describe below) Pastoral Comments follow up visit to patient as promised by this stone decorator last week; pt is resting in bed; pt reports that she is feeling ill and is tired; pt declines a visit at this time; future visit and support offered as desired
[2022-05-09 06:03] LABS: Absolute Lymphocyte Count 1.35 X10^3/uL (0.83-4.51); Basophil# 0.05 X10^3/uL; Basophil% 0.7 % (0-1); Eosinophils% 4.1 % (0-5); Hematocrit 37.4 % (37-47); Hemoglobin 11.2 g/dL (12.0-15.0); Lymphocyte # 1.35 X10^3/ul (0.83-4.51); Lymphocyte % 18.2 % (19-41); Mean Corp Hgb Conc 29.9 g/dL (32-36); Mean Corpuscular Hgb 28.9 pg (27.0-32.0); Mean Corpuscular Volume 96.4 fL (81-99); Mean Platelet Vol. 9.2 fl (6.2-12.0); Monocyte# 0.65 X10^3/uL; Monocyte% 8.8 % (0-10); NRBC Flagged by Analyzer 0 % (0-5); Neutrophil # 5.02 X10^3/uL (2.7-7.7); Neutrophil % 67.8 % (47-70); Platelet Count 369 K/mm3 (150-450); RBC Distribution Width CV 15.9 % (11.6-14.6); RBC Distribution Width SD 56.3 fl (35.1-43.9); Red Blood Count 3.88 M/mm3 (4.2-5.4); White Blood Count 7.4 K/mm3 (4.4-11.0)
[2022-05-09 06:38] LABS: Anion Gap 6 (5-15); BUN 19 mg/dL (7-18); BUN/Creat Ratio 39.3 RATIO (10-20); Calcium,Total 8.5 mg/dL (8.5-10.1); Chloride 101 mmol/L (98-107); Creatinine, Serum 0.48 mg/dL (0.55-1.02); EST Glomerular Filtration Rate 134 mL/min (>60); Est Glom Filt Rate - Afr Amer 162 mL/min (>60); Estimated Creatinine Clearance 44.06 ml/min; Glucose 104 mg/dL (74-106); Potassium 4.4 mmol/L (3.5-5.1); Sodium Level 136 mmol/L (136-145)
[2022-05-09] MEDS: Lidocaine 5% Patch 1 PATCH TOPICAL (06:46)
[2022-05-09] MEDS: Acetaminophen 500 MG Tablet 1000 MG PO ×3 (06:46→18:01)
[2022-05-09] MEDS: Menthol/Lanolin/Calamine/Znox 113 GM Tube 1 APPLIC TOPICAL ×3 (06:47→21:58)
[2022-05-09] MEDS: oxyCODONE 5 MG Tablet PO ×4 (06:52→21:33)
[2022-05-09] MEDS: Gabapentin 300 MG Capsule PO ×3 (09:02→18:00)
[2022-05-09] MEDS: Senna/Docusate Sodium 1 Tablet 2 TABLET PO ×2 (09:03→18:00)
[2022-05-09] MEDS: Polyethylene Glycol 3350 17 GM PACKET PO (09:04)
[2022-05-09] MEDS: Calcium (Elemental) 500 MG Tablet PO ×3 (11:19→18:00)
[2022-05-09] MEDS: Cholecalciferol (VIT D3) 25 MCG TABLET (1,000 UNITS) 50 MCG PO (11:20)
[2022-05-09] MEDS: Aspirin 81 MG TAB.CHEW PO (11:20)
[2022-05-09 13:00] VITALS: BP 113/58; PULSE 65; RESP 16; TEMP 36.4; O2SAT 97
[2022-05-09] MEDS: Nystatin Powder 15gm Bottle 1 APPLIC TOPICAL ×2 (13:49→21:57)
--- NOTE | 2022-05-09 13:50 | WOUNDNOTE ---
wound photo: left foot
[2022-05-09] MEDS: Petrolatum 33% Tube 1 APPLIC TOPICAL (13:51)
--- NOTE | 2022-05-09 13:51 | WOUNDNOTE ---
wound photo: left lower leg
--- NOTE | 2022-05-09 13:51 | WOUNDNOTE ---
wound photo: left heel
--- NOTE | 2022-05-09 18:18 | NURSING ---
Pt continued through out day to complain of pain at a 10/. She refuses to take 10 mg oxycodone as ordered for her pain. She states makes her to sleepy. She only wants that dose at night. Pt appears restful during the day. Moans when nurse walks in room to give meds. Intermittent nausea today. She is requesting zofran. Relieved by gingerale this am. Refuses phenergan because it makes her mouth dry. Reviewed with Dr. Lyons pt pain concerns. No changes made at this time. Pt continues to get tylenol as scheduled.
--- NOTE | 2022-05-09 20:35 | NURSING ---
Primary RN reports patient recent temp 99.1 and noted foul odor and drainage to wound to buttock, Dr. Lyons paged and notified via telephone of above, new order received for MRSA gram stain wound culture to buttock wound
--- NOTE | 2022-05-09 22:19 | NURSING ---
Patient's mayer catheter removed earlier today. Patient stated she had not voided yet. Bladder scan completed, with volume >267ml. Straight catheterization done, per patient's request as she was feeling uncomfortable. Approximately 300mL dark yellow urine drained from bladder. Patient states she is more comfortable now. Will continue voiding trials, bladder scans. Will continue to monitor.
[2022-05-09 22:50] VITALS: PULSE 65; RESP 16; O2SAT 97
[2022-05-10 00:56] LABS: M R Staph aureus DNA By PCR Negative (Negative); Specimen Processing Control PASS; Staph aureus DNA By PCR POSITIVE (Negative)
[2022-05-10 00:57] LABS: Probe Check PASS
[2022-05-10] MEDS: Acetaminophen 500 MG Tablet 1000 MG PO ×2 (05:33→17:50)
[2022-05-10] MEDS: Lidocaine 5% Patch 1 PATCH TOPICAL (05:33)
--- NOTE | 2022-05-10 05:52 | NURSING ---
Patient called this nurse into room, stating she was feeling a lot of pressure in bladder area. Bladder scan showed >567ml urine in bladder. Patient straight cath'd at this time. Post cath bladder scan showed 56ml residual. Will continue to monitor.
--- NOTE | 2022-05-10 06:08 | NURSING ---
Patient with temperature of 99.0 temporal. Scheduled Tylenol administered. Will continue to monitor.
--- NOTE | 2022-05-10 08:29 | WOUNDNOTE ---
wound photo: left buttock
[2022-05-10] MEDS: oxyCODONE 5 MG Tablet PO ×3 (08:33→20:31)
[2022-05-10] MEDS: Gabapentin 300 MG Capsule PO ×3 (08:33→17:48)
[2022-05-10] MEDS: Calcium (Elemental) 500 MG Tablet PO ×2 (08:35→17:49)
[2022-05-10] MEDS: Aspirin 81 MG TAB.CHEW PO (08:36)
[2022-05-10] MEDS: Polyethylene Glycol 3350 17 GM PACKET PO (08:37)
[2022-05-10] MEDS: Cholecalciferol (VIT D3) 25 MCG TABLET (1,000 UNITS) 50 MCG PO (08:37)
[2022-05-10] MEDS: Senna/Docusate Sodium 1 Tablet 2 TABLET PO ×2 (08:37→17:49)
[2022-05-10 09:29] VITALS: PULSE 59; RESP 16; O2SAT 97
[2022-05-10] MEDS: Magnesium Hydroxide 30 ML UDC PO (09:50)
[2022-05-10] MEDS: Nystatin Powder 15gm Bottle 1 APPLIC TOPICAL ×2 (09:51→20:33)
[2022-05-10] MEDS: Petrolatum 33% Tube 1 APPLIC TOPICAL (09:51)
[2022-05-10] MEDS: Pantoprazole Sodium 20 MG Tablet PO (09:52)
--- NOTE | 2022-05-10 10:36 | PHA.PHARE_ITS ---
Consult Pharmacy has been consulted to manage selected antiobiotic: Vancomycin Type of Consult: New start Labs: Sodium 136 mmol/L (136-145) 05/09/22 05:32 Potassium 4.4 mmol/L (3.5-5.1) 05/09/22 05:32 Chloride 101 mmol/L (98-107) 05/09/22 05:32 Carbon Dioxide 29.0 mmol/L (21.0-32.0) 05/09/22 05:32 Anion Gap 6 (5-15) 05/09/22 05:32 BUN 19 mg/dL (7-18) H 05/09/22 05:32 Creatinine 0.48 mg/dL (0.55-1.02) L 05/09/22 05:32 Est GFR (MDRD) Af Amer 162 mL/min (>60) 05/09/22 05:32 Est GFR (MDRD) Non-Af 134 mL/min (>60) 05/09/22 05:32 BUN/Creatinine Ratio 39.3 RATIO (10-20) H 05/09/22 05:32 Glucose 104 mg/dL (74-106) 05/09/22 05:32 Microbiology: Microbiology 05/09/22 22:32 Wound - Buttock Gram Stain - Final 05/01/22 19:00 Urine, Clean Catch Urine Culture - Final Corynebacterium amycolatum/xer 04/24/22 13:20 Urine, Clean Catch Urine Culture - Final Corynebacterium amycolatum 04/19/22 08:50 Nasal Secretion SARS-CoV-2 Antigen (Rapid) - Final 04/19/22 07:22 Nasal Secretion SARS-CoV-2 Antigen (Rapid) - Final Weight used for dosin kg Estimated Creatinine Clearance: 56ML/MIN Goal Trough: 10-15 mcg/mL Pharmacy Plan for Drug Dosing: Give initial standard dose (15mg/kg) as ordered of 750mg IV x1, then will continue with 1000mg IV q24h per [facility] dosing protocol. Will order a vanc trough to be drawn before the 3rd total dose. The patient's CrCl of 56ml/min was calculated using the SCr of 0.48 rounded up to 0.8 per policy since the patient is >65 years of age. Pharmacy Service will continue to monitor and adjust dosing as required. Follow-Up Labs: Trough Vancomycin Labs to be done on [date and time ordered]: 05/12/22 07:30
--- NOTE | 2022-05-10 11:41 | NURSING ---
Updated Merlyn (daughter) of wound culture, change to wound care, and IV antibiotics being started.
[2022-05-10] MEDS: proMETHazine 25 MG Tablet PO ×2 (12:15→17:53)
[2022-05-10 14:25] VITALS: BP 98/55; PULSE 59; RESP 16; TEMP 36.6; O2SAT 98
[2022-05-10] MEDS: Menthol/Lanolin/Calamine/Znox 113 GM Tube 1 APPLIC TOPICAL ×2 (14:30→20:32)
--- NOTE | 2022-05-10 17:28 | NURSING ---
Bladder scan done around 1430 this afternoon, showed >488cc. Patient had small amt urine in brief, placed on bedpan to see if she could void any more. Unable to void. 16F mayer placed, immediate return of over 600cc straw colored urine, then became bloody with clots. Update left for Dr. Lyons this evening that mayer placed and urine bloody, no new orders.
[2022-05-11] MEDS: Acetaminophen 500 MG Tablet 1000 MG PO ×3 (04:40→17:49)
[2022-05-11] MEDS: oxyCODONE 5 MG Tablet PO ×3 (04:40→18:37)
[2022-05-11] MEDS: Menthol/Lanolin/Calamine/Znox 113 GM Tube 1 APPLIC TOPICAL ×3 (04:41→22:24)
[2022-05-11] MEDS: Lidocaine 5% Patch 1 PATCH TOPICAL (04:58)
[2022-05-11] MEDS: 0.9% Saline Lock 10 ML Syringe IV (04:58)
[2022-05-11] MEDS: Polyethylene Glycol 3350 17 GM PACKET PO (08:41)
[2022-05-11] MEDS: Gabapentin 300 MG Capsule PO ×3 (08:41→17:49)
[2022-05-11] MEDS: Aspirin 81 MG TAB.CHEW PO (08:42)
[2022-05-11] MEDS: Cholecalciferol (VIT D3) 25 MCG TABLET (1,000 UNITS) 50 MCG PO (08:42)
[2022-05-11] MEDS: Cephalexin 500 MG Capsule PO ×2 (08:42→17:50)
[2022-05-11] MEDS: Calcium (Elemental) 500 MG Tablet PO ×3 (08:42→17:49)
[2022-05-11] MEDS: Senna/Docusate Sodium 1 Tablet 2 TABLET PO ×2 (08:42→17:49)
[2022-05-11] MEDS: Ondansetron 8 MG Tablet PO ×2 (09:42→17:50)
[2022-05-11] MEDS: Bisacodyl 10 MG Suppository RC (09:45)
[2022-05-11] MEDS: Petrolatum 33% Tube 1 APPLIC TOPICAL (11:40)
[2022-05-11] MEDS: Nystatin Powder 15gm Bottle 1 APPLIC TOPICAL ×2 (11:41→22:25)
--- NOTE | 2022-05-11 12:11 | CASEMGMT ---
Social Work BIMS () and PHQ-9 (01/04) completed for MDS assessment. Cass Hodges MSW L[employer] DEFENSE ARTILLERY CREWMEMBER
[2022-05-11 13:47] VITALS: BP 110/58; PULSE 63; RESP 16; TEMP 36.7; O2SAT 98
[2022-05-11] MEDS: DAKIN'S SOL HALF STRENGTH (=0.25%) 1 APPLIC TOPICAL (14:08)
[2022-05-11] MEDS: Electrolyte Solution/Peg's 4000 ML 1000 ML PO (18:35)
[2022-05-12] MEDS: Acetaminophen 500 MG Tablet 1000 MG PO ×4 (01:53→20:15)
[2022-05-12] MEDS: Lactulose 20 GM/30 ML UDC PO (06:59)
[2022-05-12] MEDS: Cephalexin 500 MG Capsule PO ×2 (06:59→17:16)
[2022-05-12] MEDS: Menthol/Lanolin/Calamine/Znox 113 GM Tube 1 APPLIC TOPICAL ×3 (07:06→20:10)
[2022-05-12] MEDS: Lidocaine 5% Patch 1 PATCH TOPICAL (07:08)
[2022-05-12] MEDS: proMETHazine 25 MG Tablet PO (07:10)
[2022-05-12] MEDS: DAKIN'S SOL HALF STRENGTH (=0.25%) 1 APPLIC TOPICAL (07:28)
[2022-05-12] MEDS: Gabapentin 300 MG Capsule PO ×3 (08:59→17:16)
[2022-05-12] MEDS: Pantoprazole Sodium 20 MG Tablet PO (08:59)
[2022-05-12] MEDS: Senna/Docusate Sodium 1 Tablet 2 TABLET PO (08:59)
[2022-05-12] MEDS: Calcium (Elemental) 500 MG Tablet PO ×3 (08:59→17:16)
[2022-05-12] MEDS: Polyethylene Glycol 3350 17 GM PACKET PO (08:59)
[2022-05-12] MEDS: Cholecalciferol (VIT D3) 25 MCG TABLET (1,000 UNITS) 50 MCG PO (08:59)
[2022-05-12] MEDS: Aspirin 81 MG TAB.CHEW PO (08:59)
[2022-05-12] MEDS: 0.9% Saline Lock 10 ML Syringe IV (09:10)
[2022-05-12] MEDS: oxyCODONE 5 MG Tablet PO ×2 (09:10→20:16)
[2022-05-12 10:00] VITALS: PULSE 62; RESP 18; O2SAT 97
[2022-05-12] MEDS: Petrolatum 33% Tube 1 APPLIC TOPICAL (13:33)
[2022-05-12] MEDS: Nystatin Powder 15gm Bottle 1 APPLIC TOPICAL ×2 (13:34→20:10)
[2022-05-12 15:54] VITALS: BP 99/52; PULSE 59; RESP 15; TEMP 36.8; O2SAT 91
[2022-05-13] MEDS: Menthol/Lanolin/Calamine/Znox 113 GM Tube 1 APPLIC TOPICAL ×3 (05:07→20:20)
[2022-05-13] MEDS: Acetaminophen 500 MG Tablet 1000 MG PO ×3 (05:07→17:48)
[2022-05-13] MEDS: Cephalexin 500 MG Capsule PO ×2 (05:07→17:47)
[2022-05-13] MEDS: Lidocaine 5% Patch 1 PATCH TOPICAL (05:09)
[2022-05-13] MEDS: Polyethylene Glycol 3350 17 GM PACKET PO (08:50)
[2022-05-13] MEDS: Calcium (Elemental) 500 MG Tablet PO ×3 (08:50→17:47)
[2022-05-13] MEDS: Gabapentin 300 MG Capsule PO ×3 (08:50→17:47)
[2022-05-13] MEDS: Cholecalciferol (VIT D3) 25 MCG TABLET (1,000 UNITS) 50 MCG PO (08:50)
[2022-05-13] MEDS: Senna/Docusate Sodium 1 Tablet 2 TABLET PO ×2 (08:50→17:48)
[2022-05-13] MEDS: Aspirin 81 MG TAB.CHEW PO (08:51)
[2022-05-13] MEDS: DAKIN'S SOL HALF STRENGTH (=0.25%) 1 APPLIC TOPICAL (10:09)
[2022-05-13] MEDS: Petrolatum 33% Tube 1 APPLIC TOPICAL (10:09)
[2022-05-13] MEDS: Nystatin Powder 15gm Bottle 1 APPLIC TOPICAL ×2 (10:10→20:21)
[2022-05-13] MEDS: oxyCODONE 5 MG Tablet PO ×2 (15:24→20:18)
[2022-05-13 16:00] VITALS: BP 91/50; PULSE 63; RESP 16; TEMP 37; O2SAT 97
[2022-05-13] MEDS: Lactulose 20 GM/30 ML UDC PO (17:47)
[2022-05-14] MEDS: Acetaminophen 500 MG Tablet 1000 MG PO ×3 (06:31→17:24)
[2022-05-14] MEDS: Cephalexin 500 MG Capsule PO ×2 (06:31→18:39)
[2022-05-14] MEDS: Ondansetron 8 MG Tablet PO ×2 (08:06→17:24)
[2022-05-14] MEDS: Gabapentin 300 MG Capsule PO ×3 (09:11→17:24)
[2022-05-14] MEDS: Aspirin 81 MG TAB.CHEW PO (09:11)
[2022-05-14] MEDS: Senna/Docusate Sodium 1 Tablet 2 TABLET PO ×2 (09:11→18:39)
[2022-05-14] MEDS: Menthol/Lanolin/Calamine/Znox 113 GM Tube 1 APPLIC TOPICAL ×3 (09:12→20:06)
[2022-05-14] MEDS: Lidocaine 5% Patch 1 PATCH TOPICAL (09:12)
[2022-05-14] MEDS: Lactulose 20 GM/30 ML UDC PO (09:12)
[2022-05-14] MEDS: Petrolatum 33% Tube 1 APPLIC TOPICAL (09:13)
[2022-05-14] MEDS: Pantoprazole Sodium 20 MG Tablet PO (09:16)
[2022-05-14] MEDS: Nystatin Powder 15gm Bottle 1 APPLIC TOPICAL ×2 (09:18→20:04)
[2022-05-14] MEDS: DAKIN'S SOL HALF STRENGTH (=0.25%) 1 APPLIC TOPICAL (10:50)
--- NOTE | 2022-05-14 11:00 | NURSING ---
Pt very tearful d/t not being able to be home with her family and feeling that she will never be able to visit them again d/t them living far away. 1:1 given to pt and encouraged to set small goals for herself. Pt stated I'm nauseated again and I cannot poop. Educated pt importance of getting out of bed and sitting on Bedside commode. Pt stated I don't feel like I can. Educated pt that its more natural to sit on a toilet then trying to have a bowel movement while laying down. Pt agreed and This nurse and a PHLEBOTOMIST PRN got pt to bedside commode. Pt had Medium sized bowel movement. Encouraged pt to sit in chair for a while and she agreed. Call light within reach.
[2022-05-14] MEDS: Calcium (Elemental) 500 MG Tablet PO ×2 (11:36→18:39)
[2022-05-14] MEDS: oxyCODONE 5 MG Tablet PO ×2 (14:04→20:02)
[2022-05-14 14:45] VITALS: PULSE 52; O2SAT 97
[2022-05-14 16:00] VITALS: BP 106/53; PULSE 52; RESP 18; TEMP 36.7; O2SAT 97
[2022-05-15] MEDS: Lactulose 20 GM/30 ML UDC PO (06:25)
[2022-05-15] MEDS: Acetaminophen 500 MG Tablet 1000 MG PO ×3 (06:26→21:28)
[2022-05-15] MEDS: Lidocaine 5% Patch 1 PATCH TOPICAL (06:27)
--- NOTE | 2022-05-15 08:30 | MDS.RN ---
Information for the mds was obtained from review of the clinical record, interview of resident, staff and direct observation of resident's care.
[2022-05-15] MEDS: Cephalexin 500 MG Capsule PO ×2 (08:58→17:49)
[2022-05-15] MEDS: Gabapentin 300 MG Capsule PO ×3 (08:58→16:59)
[2022-05-15] MEDS: Senna/Docusate Sodium 1 Tablet 2 TABLET PO (08:58)
[2022-05-15] MEDS: Aspirin 81 MG TAB.CHEW PO (08:58)
[2022-05-15] MEDS: Calcium (Elemental) 500 MG Tablet PO ×3 (08:58→17:49)
[2022-05-15] MEDS: Cholecalciferol (VIT D3) 25 MCG TABLET (1,000 UNITS) 50 MCG PO (08:58)
[2022-05-15] MEDS: Polyethylene Glycol 3350 17 GM PACKET PO (08:59)
[2022-05-15] MEDS: Nystatin Powder 15gm Bottle 1 APPLIC TOPICAL ×2 (08:59→21:27)
[2022-05-15] MEDS: Menthol/Lanolin/Calamine/Znox 113 GM Tube 1 APPLIC TOPICAL ×3 (08:59→21:27)
[2022-05-15] MEDS: Petrolatum 33% Tube 1 APPLIC TOPICAL (09:00)
[2022-05-15] MEDS: oxyCODONE 5 MG Tablet PO ×2 (09:04→21:27)
--- NOTE | 2022-05-15 10:13 | NURSING ---
glory, wound nurse in changing pt dressings at this time
[2022-05-15] MEDS: DAKIN'S SOL HALF STRENGTH (=0.25%) 1 APPLIC TOPICAL (10:52)
--- NOTE | 2022-05-15 10:53 | WOUNDNOTE ---
wound photo: left buttock
--- NOTE | 2022-05-15 10:54 | WOUNDNOTE ---
wound photo: left lower leg
--- NOTE | 2022-05-15 10:54 | WOUNDNOTE ---
wound photo: left foot
--- NOTE | 2022-05-15 10:55 | WOUNDNOTE ---
wound photo: left heel
--- NOTE | 2022-05-15 10:56 | NURSING ---
pt incont of stool during therapy session, dressing changed again to LT upper buttock wound. pt denies pain. glory feels surgeon should be consulted. pt assisted to recliner chair for lunch, cushion in place under buttocks. call light in reach.
--- NOTE | 2022-05-15 11:03 | WOUNDNOTE ---
Nursing states that patient was having frequent stools on Sunday and the dressing was changed often. there is more of an odor noted to wound today with more stringy slough noted. there is some undermining noted as well. recommending a surgical/plastic surgeon consult for surgical debridement. was hoping the Dakins gauze would help pull some of the slough, but wound does not appear to be improving. Pt denies fever or chills. will closely monitor. Pt has been refusing to reposition and likes to lay in bed rather than get up and move around. educated patient on the importance of offloading wound as well. see wound photo.
--- NOTE | 2022-05-15 14:52 | NURSING ---
Addendum entered by Jennie Lomeli 05/15/22 19:36: daughter, jed updated. Original Note: dr Lee consulted d/t needing debridement of buttock wound. message left with Taty at his office. she reported that she will update him, he is in surgery all day.
[2022-05-15 15:17] VITALS: BP 95/51; PULSE 46; RESP 16; TEMP 36.5; O2SAT 96
[2022-05-15] MEDS: Ondansetron 8 MG Tablet PO (16:59)
--- NOTE | 2022-05-15 19:45 | PN.TCU_ITS ---
Subjective Subjective Resident seen, examined for regulatory visit. She is eating supper, she is in a good mood, she feels she is progressing with therapy. Objective Data Objective Data Vital Signs: Vital Signs Temp Pulse Resp BP Pulse Ox O2 Del Method 97.7 F L 46 L 16 95/51 L 96 Room Air 05/15/22 15:17 05/15/22 15:17 05/15/22 15:17 05/15/22 15:17 05/15/22 15:17 05/15/22 15:17 Oxygen Delivery Method Room Air Weight: 57.017 kg Body Mass Index (BMI) 23.4 Intake & Output: Intake and Output for Last 24 Hours 05/13/22 05/14/22 05/15/22 23:59 23:59 23:59 Intake Total 460 / 460 360 / 360 600 / 600 Output Total 1000 / 1000 750 / 750 1850 / 1850 Balance -540 / -540 -390 / -390 -1250 / -1250 Lab / Micro Data Result Diagrams: 05/09/22 05:32 05/09/22 05:32 Micro: Microbiology 05/09/22 22:32 Wound - Buttock Gram Stain - Final 05/09/22 22:32 Wound - Buttock Wound Culture - Final Escherichia coli Staphylococcus aureus 05/01/22 19:00 Urine, Clean Catch Urine Culture - Final Corynebacterium amycolatum/xer 04/24/22 13:20 Urine, Clean Catch Urine Culture - Final Corynebacterium amycolatum 04/19/22 08:50 Nasal Secretion SARS-CoV-2 Antigen (Rapid) - Final 04/19/22 07:22 Nasal Secretion SARS-CoV-2 Antigen (Rapid) - Final Physical Exam Const alert General Appearance: cooperative HEENT normocephalic Eyes PERRL and EOMs intact bilaterally Neck supple, no JVD and no carotid bruits Resp normal respiratory effort, normal air movement and clear to auscultation bilaterally Cardio regular rate and regular rhythm GI normal to inspection, nondistended, normoactive bowel sounds, non-tender and non-distended Extremity normal capillary refill Extremity Narrative: Left lower extremity splint. General Extremity: Negative for edema Skin no rashes or lesions noted General Skin Exam: no breakdown Wound Narrative: Left buttock wound per wound nurse. Psych affect normal Appearance: appropriate Assessment & Plan Assessment/Plan (1) Debility: (2) Acute encephalopathy: (3) Urinary tract infection: (4) Multiple trauma: (5) Open left tibial fracture: (6) Closed right hip fracture: (7) Atrial fibrillation: (8) GERD (gastroesophageal reflux disease): (9) Rheumatoid arthritis: PLAN: Plan 72 year old female with below past medical history suffered fall from second story, hospitalized for multi trauma, underwent left tibia intramedullary nail fixation, right hip anterograde intramedullary nail, complicated by encephalopathy from urinary tract infection, admitted to TCU with debility, here for rehabilitation, strengthening, prior to discharge home alone. * Debility - PT/OT. * Pain - Tylenol 1000mg q8, Oxycodone 5-10mg q6h prn pain (1-5, 6-10), Lidoderm patch 1 patch topical daily. * Bowel - Miralax 17gm daily, Senna/colace 2 tablet bid, Lactulose 20gm bid, Dulcolax 10mg pr daily prn, MOM 30ml daily prn. * Adult immunization - Administer pneumonia vaccine, covid19 vaccine, flu vaccine as appropriate. * DVT prophylaxis - Hold. * CV prophylaxis - Aspirin 81mg daily. * Calcium deficiency - Calcium 500mg tidcm. * Neuropathic pain - Gabapentin 300mg tid. * Lactose intolerance - Lactase 9,000 units daily. * GI prophylaxis - Lactobacillus 1 tablet daily. * GERD - Pantoprazole 20mg q48h. * Vitamin D deficiency - D3 50mcg daily. * Anxiety - Xanax 0.5mg tid prm. * Right lower lobe lung mass - PET/CT and/or biopsy as outpatient. * Sore throat - BMX 15ml po q3h prn. * Left buttock wound - culture grew E. Coli, Staph, Keflex 500mg q12h thru 05/18/2022, Consult Dr. Lee to debride wound. * Skin irritation - Calmoseptine topical tid, Petroleum topical daily. * Tinea Corporis - Nystatin powder topical bid. * Nausea - Zofran 8mg q8h prn, Promethazine 25mg q4h prn. * Dry Nares - Sodium chloride 1 spray nasal bid prn. Capacity Capacity Assessment Tool Can the patient make a choice & communicate that choice?: Yes Can the patient understand benefits, risks and alternatives?: Yes Can the patient make a logical, rational choice?: Yes Is the choice the patient makes consistent w/ their values?: Yes Is there an impending, emergent risk to the patient?: No Does the patient have an Advance Directive?: No Is there a Surrogate Available?: Yes i.e. HCPOA: Yes i.e. close relative (spouse, child, parent, sibling)?: Yes
[2022-05-15 20:00] VITALS: PULSE 62; RESP 14; O2SAT 98
[2022-05-16 05:44] LABS: Absolute Lymphocyte Count 1.97 X10^3/uL (0.83-4.51); Absolute Neutrophil Count 4.4 X10^3/uL (2.0-7.7); Basophil# 0.06 X10^3/uL; Basophil% 0.8 % (0-1); Eosinophil# 0.17 X10^3/uL; Eosinophils% 2.3 % (0-5); Hematocrit 31.9 % (37-47); Hemoglobin 9.6 g/dL (12.0-15.0); Lymphocyte # 1.97 X10^3/ul (0.83-4.51); Lymphocyte % 26.9 % (19-41); Mean Corp Hgb Conc 30.1 g/dL (32-36); Mean Corpuscular Volume 96.4 fL (81-99); Monocyte# 0.64 X10^3/uL; Monocyte% 8.8 % (0-10); NRBC Flagged by Analyzer 0 % (0-5); Neutrophil # 4.44 X10^3/uL (2.7-7.7); Neutrophil % 60.8 % (47-70); Platelet Count 400 K/mm3 (150-450); RBC Distribution Width CV 14.9 % (11.6-14.6); Red Blood Count 3.31 M/mm3 (4.2-5.4); White Blood Count 7.3 K/mm3 (4.4-11.0)
[2022-05-16 06:03] LABS: Anion Gap 6 (5-15); BUN 14 mg/dL (7-18); BUN/Creat Ratio 31.9 RATIO (10-20); Calcium,Total 8.5 mg/dL (8.5-10.1); Chloride 104 mmol/L (98-107); Creatinine, Serum 0.44 mg/dL (0.55-1.02); EST Glomerular Filtration Rate 149 mL/min (>60); Est Glom Filt Rate - Afr Amer 181 mL/min (>60); Glucose 101 mg/dL (74-106); Sodium Level 139 mmol/L (136-145)
[2022-05-16] MEDS: Ondansetron 8 MG Tablet PO (06:37)
[2022-05-16] MEDS: oxyCODONE 5 MG Tablet PO ×2 (06:37→20:52)
[2022-05-16] MEDS: Acetaminophen 500 MG Tablet 1000 MG PO ×3 (06:39→20:50)
[2022-05-16] MEDS: Lidocaine 5% Patch 1 PATCH TOPICAL (06:40)
[2022-05-16] MEDS: Menthol/Lanolin/Calamine/Znox 113 GM Tube 1 APPLIC TOPICAL ×3 (06:41→20:52)
[2022-05-16] MEDS: Gabapentin 300 MG Capsule PO ×3 (08:29→17:17)
[2022-05-16] MEDS: Calcium (Elemental) 500 MG Tablet PO ×3 (08:29→17:18)
[2022-05-16] MEDS: Polyethylene Glycol 3350 17 GM PACKET PO (08:30)
[2022-05-16] MEDS: Cephalexin 500 MG Capsule PO ×2 (08:30→17:18)
[2022-05-16] MEDS: Aspirin 81 MG TAB.CHEW PO (08:30)
[2022-05-16] MEDS: Cholecalciferol (VIT D3) 25 MCG TABLET (1,000 UNITS) 50 MCG PO (08:31)
[2022-05-16] MEDS: Senna/Docusate Sodium 1 Tablet 2 TABLET PO ×2 (08:31→17:17)
[2022-05-16 10:45] VITALS: PULSE 50; RESP 16; O2SAT 97
[2022-05-16] MEDS: DAKIN'S SOL HALF STRENGTH (=0.25%) 1 APPLIC TOPICAL (11:04)
[2022-05-16] MEDS: Nystatin Powder 15gm Bottle 1 APPLIC TOPICAL ×2 (11:04→20:52)
[2022-05-16] MEDS: Petrolatum 33% Tube 1 APPLIC TOPICAL (11:05)
[2022-05-16] MEDS: Pantoprazole Sodium 20 MG Tablet PO (11:05)
[2022-05-16 14:55] VITALS: BP 99/56; PULSE 52; RESP 16; TEMP 36.4; O2SAT 96
--- NOTE | 2022-05-16 16:38 | NURSING ---
ENGLISH AS A SECOND LANGUAGE INSTRUCTOR asked patient about a time for setting up psych appointment. Patient said she wasn't aware of it and doesn't think she needs the appointment. This RN went and followed up with patient, she politely re-iterated the same thing, said she doesn't feel she needs this, denies having anxiety or depression, denies ever have thoughts of self harm.
[2022-05-16] MEDS: Lactulose 20 GM/30 ML UDC PO (17:18)
--- NOTE | 2022-05-16 19:35 | NURSING ---
Dr. Lee's office called patient this afternoon set up office visit, she informed them she was in hospital, needs consult here. They said they will update Dr. Lee that patient needs seen in hospital.
[2022-05-17] MEDS: oxyCODONE 5 MG Tablet PO ×3 (03:33→20:35)
[2022-05-17] MEDS: Lidocaine 5% Patch 1 PATCH TOPICAL (05:45)
[2022-05-17] MEDS: Acetaminophen 500 MG Tablet 1000 MG PO ×3 (05:45→20:13)
[2022-05-17] MEDS: Lactulose 20 GM/30 ML UDC PO (05:46)
[2022-05-17] MEDS: Menthol/Lanolin/Calamine/Znox 113 GM Tube 1 APPLIC TOPICAL ×3 (05:46→20:25)
[2022-05-17] MEDS: Ondansetron 8 MG Tablet PO (05:53)
[2022-05-17] MEDS: Cholecalciferol (VIT D3) 25 MCG TABLET (1,000 UNITS) 50 MCG PO (08:42)
[2022-05-17] MEDS: Aspirin 81 MG TAB.CHEW PO (08:42)
[2022-05-17] MEDS: Gabapentin 300 MG Capsule PO ×3 (08:43→18:10)
[2022-05-17] MEDS: Cephalexin 500 MG Capsule PO ×2 (08:43→18:10)
[2022-05-17] MEDS: Calcium (Elemental) 500 MG Tablet PO ×3 (08:43→18:10)
[2022-05-17] MEDS: Nystatin Powder 15gm Bottle 1 APPLIC TOPICAL ×2 (12:00→20:15)
--- NOTE | 2022-05-17 14:14 | WOUNDNOTE ---
Dr Lee is currently in surgery. Discussed with Magda Culp NP. she will discuss with Dr Lee once out of surgery today.
[2022-05-17 14:36] VITALS: BP 97/58; PULSE 58; RESP 16; TEMP 36; O2SAT 100
[2022-05-17] MEDS: DAKIN'S SOL HALF STRENGTH (=0.25%) 1 APPLIC TOPICAL (14:40)
[2022-05-17] MEDS: Petrolatum 33% Tube 1 APPLIC TOPICAL (14:40)
[2022-05-17] MEDS: Senna/Docusate Sodium 1 Tablet 2 TABLET PO (18:10)
[2022-05-17 21:25] VITALS: PULSE 54; RESP 18; O2SAT 99
--- NOTE | 2022-05-17 22:30 | NURSING ---
During HS med pass pt noted to be in a pleasant and optimistic mood. Talked about the good-but hard therapy and the different activities she had participated in today. Voices understanding of shifting weight off of L buttock and compliant. Also voices that pain is more under control. No signs of pain noted by this nurse.
[2022-05-18] MEDS: oxyCODONE 5 MG Tablet PO ×2 (04:31→20:28)
[2022-05-18] MEDS: Acetaminophen 500 MG Tablet 1000 MG PO ×3 (04:31→20:29)
[2022-05-18] MEDS: Lidocaine 5% Patch 1 PATCH TOPICAL (04:33)
[2022-05-18] MEDS: Menthol/Lanolin/Calamine/Znox 113 GM Tube 1 APPLIC TOPICAL ×3 (04:37→20:30)
[2022-05-18] MEDS: Lactulose 20 GM/30 ML UDC PO ×2 (08:39→18:24)
[2022-05-18] MEDS: Senna/Docusate Sodium 1 Tablet 2 TABLET PO ×2 (08:39→18:25)
[2022-05-18] MEDS: Petrolatum 33% Tube 1 APPLIC TOPICAL (08:40)
[2022-05-18] MEDS: Cephalexin 500 MG Capsule PO (08:40)
[2022-05-18] MEDS: Nystatin Powder 15gm Bottle 1 APPLIC TOPICAL ×2 (08:40→20:27)
[2022-05-18] MEDS: Calcium (Elemental) 500 MG Tablet PO ×3 (08:40→18:24)
[2022-05-18] MEDS: Aspirin 81 MG TAB.CHEW PO (08:40)
[2022-05-18] MEDS: Cholecalciferol (VIT D3) 25 MCG TABLET (1,000 UNITS) 50 MCG PO (08:40)
[2022-05-18] MEDS: Gabapentin 300 MG Capsule PO ×3 (08:40→18:24)
[2022-05-18] MEDS: DAKIN'S SOL HALF STRENGTH (=0.25%) 1 APPLIC TOPICAL (08:41)
[2022-05-18 10:00] VITALS: PULSE 52; O2SAT 98
[2022-05-18] MEDS: Pantoprazole Sodium 20 MG Tablet PO (11:03)
--- NOTE | 2022-05-18 12:14 | CON.PCM_ITS ---
Assessment & Plan Assessment/Plan (1) Pressure ulcer of sacral region, stage 4: (2) Skin necrosis: (3) Transient disorientation: (4) Fall in home: PLAN: Plan Medical records reviewed. Labs and x-rays reviewed. Patient has developed a necrotic left sacral pressure sore that is extending to the muscle. It is a Stage IV. Wound care is Dakin's dressing changes. Patient needs a specialty bed such as a low air loss bed from [facility]. A wound culture was done on 05/09/22. It showed E. coli, and Staphylococcus aureus and was treated with Keflex antibiotics. Anticipate increased metabolic demands from the necrotic pressure sore. Will check a Prealbumin and encourage nutritional supplementation with protein to help the healing process. At the time of surgery, will start Cefepime and Doxcycline or Vancomycin. Recommend operative intervention with excision necrotic left sacral pressure sore under general anesthesia over the next few days. I anticipate it extends down to the bone and a partial ostectomy for osteomyelitis will be performed as well. Half the soft tissue and half the bone will be sent to Pathology for analysis to rule out carcinoma and to evaluate for osteomyelitis. Half the soft tissue and half the bone will be sent to Microbiology for culture. A positive culture will necessitate antibiotic therapy, possibly terminal operations supervisor IV antibiotics through a PICC line. Discussed with the patient, that the operative wound will be larger since there is a wider area of pressure injury once you get past the skin. She voices understanding and wishes to proceed. Postoperative wound care will be started with the VAC. The following day after surgery, will obtain a CT Pelvis to look for evidence of osteomyelitis. After discharge from TCU, she can followup at the [facility]. Once the infection has been treated and adequate excisional debridement has been done and nutrition has been maximized, we can discuss further surgical intervention with wound closure with fascioocutaneous flaps, possibly skin grafting. Patient is ambulatory and I do not want to use a myocutaneous flap because it will affect her gait. It may require additional physical therapy rehab. After surgery, she will remain on the MedSur side until the next day. Will apply the VAC the next day. After discharge home, she will need a specialty bed such as a low air loss bed. Patient was informed of the risks and complications of the procedure including alternatives to surgery. These were discussed with the patient personally. Patient voices understanding and wishes to proceed. HPI Consult Data Date of Consult: 05/19/22 HPI Narrative Reason for Consultation: Necrotic left sacral pressure sore, Stage IV. HPI Narrative: 72 year old female with below past medical history suffered fall from second story, hospitalized for multi trauma, underwent left tibia intramedullary nail fixation, right hip anterograde intramedullary nail, complicated by encephalopathy from urinary tract infection. She was admitted to TCU with debility, here for rehabilitation, strengthening, prior to discharge home alone. She was noted to have a pressure injury left sacral area that developed some skin necrosis that has extended into the subcutaneous tissue and underlying muscle. She denies fever. She is able to get out of bed with assist and is working on strengthening and ambulation. I was asked to evaluate this pressure injury for surgical options for treatment. [facility] Medical History (Updated 05/19/22 @ 21:[address] Jose Lee MD) Arthritis Atrial fibrillation Cardiology follow-up encounter COVID-19 Electrical isolation of left atrial appendage after cardiac ablation procedure for atrial fibrillation Fall in home Gastric reflux Gastritis Gastrointestinal problem GERD (gastroesophageal reflux disease) GERD (gastroesophageal reflux disease) History of atrial fibrillation History of echocardiogram History of Holter monitoring History of IBS IBS (irritable bowel syndrome) Irregular heart beat Neuropathy Non-smoker Normal stress echocardiogram Osteoarthritis Osteopenia Paroxysmal atrial fibrillation Post-menopausal Pressure ulcer of sacral region, stage 4 Rheumatoid arthritis Seasonal allergies Skin necrosis Transient disorientation Vision problem Home Medications Probiotic 1 cap PO/SL DAILY digestion 04/17/22 [History Last Taken Unknown] acetaminophen 500 mg tablet 1,000 mg PO Q6H PRN Pain 04/17/22 [History Last Taken Unknown] aspirin 81 mg capsule 81 mg PO DAILY blood thinner 04/17/22 [History Last Taken Unknown] biotin 5,000 mcg disintegrating tablet 5,000 mcg PO DAILY supplement 04/17/22 [History Last Taken Unknown] calcium 600 mg capsule 600 mg PO TID supplement 04/17/22 [History Last Taken Unknown] cholecalciferol (vitamin D3) 25 mcg (1,000 unit) capsule (Vitamin D3) 50 mcg PO DAILY supplement 04/17/22 [History Last Taken Unknown] colestipol 1 gram tablet 1 g PO DAILY supplement 04/17/22 [History Last Taken Unknown] cyanocobalamin (vitamin B-12) 5,000 mcg sublingual tablet (Vitamin B-12) 5,000 m cg sublingual DAILY supplement 04/17/22 [History Last Taken Unknown] cyclobenzaprine 5 mg tablet 5 mg PO TID muscle spasms 04/17/22 [History Last Taken Unknown] esomeprazole magnesium 20 mg capsule,delayed release (Nexium) 20 mg PO DAILY reflux 04/17/22 [History Last Taken Unknown] gabapentin 100 mg capsule 100 mg PO TID pain 04/17/22 [History Last Taken Unknown] lactase 9,000 unit tablet 9,000 unit PO DAILY supplement 04/17/22 [History Last Taken Unknown] lidocaine 4 % topical patch (Salonpas (lidocaine)) 1 patch topical DAILY pain 04/17/22 [History Last Taken Unknown] metronidazole 0.75 % topical cream 1 applic topical DAILY topical 04/17/22 [History Last Taken Unknown] omega 3-ydz-ady-fish oil 300 mg-1,000 mg capsule (Fish Oil) 2 cap PO DAILY supplement 04/17/22 [History Last Taken Unknown] oxycodone 5 mg capsule 5 - 10 mg PO Q6H PRN Pain 04/17/22 [History Last Taken Unknown] sennosides 8.6 mg-docusate sodium 50 mg tablet (Senna with Docusate Sodium) 1 tab PO BID stool softener 04/17/22 [History Last Taken Unknown] Allergy/AdvReac Type Severity Reaction Status Date / Time diltiazem Allergy Severe itching Verified 05/19/22 20:57 and swelling procainamide Allergy Unknown Unknown Verified 05/19/22 20:57 metronidazole [From Flagyl] Allergy Diarrhea Verified 05/19/22 20:57 Sulfa (Sulfonamide Allergy Anaphylaxis Verified 05/19/22 20:57 Antibiotics) ciprofloxacin [From Cipro] AdvReac Severe Other Verified 05/19/22 20:57 sotalol AdvReac Unknown Lethargic Verified 05/19/22 20:57 amiodarone AdvReac Other Verified 05/19/22 20:57 flecainide AdvReac Other Verified 05/19/22 20:57 levofloxacin [From Levaquin] AdvReac PT UNSURE Verified 05/19/22 20:57 OF REACTION metoprolol AdvReac Itching Verified 05/19/22 20:57 propafenone [From Rythmol] AdvReac Other Verified 05/19/22 20:57 tramadol AdvReac Vomiting Verified 05/19/22 20:57 ALMOST ALL HEART MEDS Allergy Unknown Uncoded 05/19/22 20:57 Family History Other Arthritis Breast cancer Colon cancer Depression Myocardial infarction Severe allergy Surgical History History of cardiac radiofrequency ablation Hx of colectomy Social History household members: none Smoking Status: Never smoker alcohol intake: never substance use type: does not use ROS ROS Narrative REVIEW OF SYSTEMS General - Denies fever, fatigue, and weight loss. Has debility. Eyes - Denies cataracts and glaucoma. ENT - Denies nasal congestion and sore throat. Endocrine - Denies excessive thirst and urination. Skin - Denies suspicious lesions and skin cancer. Has necrotic left sacral pressure sore, Stage IV. Musculoskeletal - Denies joint pain, joint stiffness, weakness of muscles and joints, back pain, and arthritis. Neuro - Denies headaches. Cardiovascular - Denies chest pain, fatigue, and shortness of breath with exertion. Has hypertension and atrial fibrillation. Psych - Has anxiety and depression. Respiratory - Denies chronic cough and shortness of breath. Gastrointestinal - Denies nausea, vomiting, diarrhea, and constipation. Has ÁNGEL D. Hematologic - Denies abnormal bruising and bleeding. Genitourinary - Denies hematuria and urinary frequency. Has UTI. Physical Exam Narrative PHYSICAL EXAMINATION General - Alert and Oriented. HEENT - PERRL. EOMI. Throat is clear. Neck - Supple and nontender. No cervical adenopathy. Lungs - Clear to auscultation. Heart - Regular rate and rhythm. Abdomen - Soft and nondistended. Extremities - FROM. No axillary adenopathy. Radial pulses are palpable. No inguinal adenopathy. Dorsalis pedis pulses are palpable. Buttock area - On the left sacral area is a necrotic pressure sore that extends through the subcutaneous tissue to the muscle. It is Stage IV. Measures 6 x 4.5 x 2 cm. No purulent drainage. Tender to palpation. Neuro - CN II-XII grossly intact. Psych - Normal mood and affect. Lab / Micro Data Attestation: I reviewed the patient's lab results. Result Diagrams: 05/16/22 05:28 05/16/22 05:28 Charges/Coding Visit Charges Inpatient E&M: 29928 SNF Init L2 (ICD-10 - L89.154, I96, R41.0, W19.xxxA)
[2022-05-18] MEDS: Ondansetron 8 MG Tablet PO (12:30)
[2022-05-18 17:31] VITALS: BP 100/53; PULSE 52; RESP 16; TEMP 36.6; O2SAT 98
--- NOTE | 2022-05-18 19:47 | NURSING ---
Pt on Surgery schedule for 05/22/22 @1330. Pt has appt with Ortho on 05/22/22 that will need cancelled.
[2022-05-19] MEDS: Acetaminophen 500 MG Tablet 1000 MG PO ×3 (05:34→20:46)
[2022-05-19] MEDS: Lidocaine 5% Patch 1 PATCH TOPICAL (05:35)
[2022-05-19] MEDS: Lactulose 20 GM/30 ML UDC PO (05:35)
[2022-05-19] MEDS: Menthol/Lanolin/Calamine/Znox 113 GM Tube 1 APPLIC TOPICAL ×3 (09:38→20:44)
[2022-05-19] MEDS: DAKIN'S SOL HALF STRENGTH (=0.25%) 1 APPLIC TOPICAL (09:39)
[2022-05-19] MEDS: Petrolatum 33% Tube 1 APPLIC TOPICAL (09:40)
[2022-05-19] MEDS: Calcium (Elemental) 500 MG Tablet PO ×3 (09:41→17:08)
[2022-05-19] MEDS: Cholecalciferol (VIT D3) 25 MCG TABLET (1,000 UNITS) 50 MCG PO (09:41)
[2022-05-19] MEDS: Aspirin 81 MG TAB.CHEW PO (09:41)
[2022-05-19] MEDS: Nystatin Powder 15gm Bottle 1 APPLIC TOPICAL ×2 (09:42→20:45)
[2022-05-19] MEDS: Gabapentin 300 MG Capsule PO ×3 (09:45→17:08)
--- NOTE | 2022-05-19 10:02 | NURSING ---
PT TO HAVE SURGERY ON SUNDAY TO SACRAL WOUND AT 1:30P
[2022-05-19 13:28] VITALS: PULSE 62; RESP 18; O2SAT 94
[2022-05-19 14:30] VITALS: BP 102/55; PULSE 57; RESP 15; TEMP 36.7; O2SAT 97
--- NOTE | 2022-05-19 14:41 | NURSING ---
APPT WITH DR ABREU CANCELLED FOR 05/22 AT 10AM, PT HAVING SURGERY THAT DAY ON SACRUM BY DR CHOI. DAUGHTER TO RESCHEDULE AND LET US KNOW NEW APPT DATE/TIME
--- NOTE | 2022-05-19 17:58 | NURSING ---
DR CHOI ORDERED LEVAQUIN IN OR FOR DAY OF SURGERY, PT STATES SHE HAS ALLERGY TO IT BUT CAN'T REMEMBER HER REACTION. WILL UPDATE PHARMACY
[2022-05-19] MEDS: oxyCODONE 5 MG Tablet PO (20:38)
[2022-05-20] MEDS: oxyCODONE 5 MG Tablet PO ×3 (05:24→21:30)
[2022-05-20] MEDS: Acetaminophen 500 MG Tablet 1000 MG PO ×3 (05:25→21:27)
[2022-05-20] MEDS: Menthol/Lanolin/Calamine/Znox 113 GM Tube 1 APPLIC TOPICAL ×3 (05:25→21:26)
[2022-05-20] MEDS: Lidocaine 5% Patch 1 PATCH TOPICAL (08:24)
[2022-05-20] MEDS: Gabapentin 300 MG Capsule PO ×3 (08:24→17:23)
[2022-05-20] MEDS: Calcium (Elemental) 500 MG Tablet PO ×3 (08:25→17:23)
[2022-05-20] MEDS: Aspirin 81 MG TAB.CHEW PO (08:25)
[2022-05-20] MEDS: Cholecalciferol (VIT D3) 25 MCG TABLET (1,000 UNITS) 50 MCG PO (08:27)
[2022-05-20] MEDS: DAKIN'S SOL HALF STRENGTH (=0.25%) 1 APPLIC TOPICAL (09:24)
[2022-05-20] MEDS: Pantoprazole Sodium 20 MG Tablet PO (11:43)
[2022-05-20] MEDS: Petrolatum 33% Tube 1 APPLIC TOPICAL (11:45)
[2022-05-20] MEDS: Nystatin Powder 15gm Bottle 1 APPLIC TOPICAL ×2 (11:46→21:27)
[2022-05-20 13:43] VITALS: BP 106/55; PULSE 56; RESP 12; TEMP 36.8; O2SAT 96
[2022-05-20] MEDS: Senna/Docusate Sodium 1 Tablet 2 TABLET PO (17:23)
[2022-05-21] MEDS: oxyCODONE 5 MG Tablet PO ×3 (04:08→22:04)
[2022-05-21] MEDS: Acetaminophen 500 MG Tablet 1000 MG PO ×3 (06:12→22:03)
[2022-05-21] MEDS: Lidocaine 5% Patch 1 PATCH TOPICAL (06:12)
[2022-05-21] MEDS: Menthol/Lanolin/Calamine/Znox 113 GM Tube 1 APPLIC TOPICAL ×3 (06:13→22:07)
[2022-05-21] MEDS: Ondansetron 8 MG Tablet PO (08:18)
[2022-05-21] MEDS: Gabapentin 300 MG Capsule PO ×3 (09:02→18:06)
[2022-05-21] MEDS: Calcium (Elemental) 500 MG Tablet PO ×3 (09:03→18:05)
[2022-05-21] MEDS: Polyethylene Glycol 3350 17 GM PACKET PO (09:03)
[2022-05-21] MEDS: Cholecalciferol (VIT D3) 25 MCG TABLET (1,000 UNITS) 50 MCG PO (09:04)
[2022-05-21] MEDS: Senna/Docusate Sodium 1 Tablet 2 TABLET PO ×2 (09:04→18:06)
[2022-05-21] MEDS: Aspirin 81 MG TAB.CHEW PO (09:05)
[2022-05-21] MEDS: Petrolatum 33% Tube 1 APPLIC TOPICAL (09:06)
[2022-05-21] MEDS: Nystatin Powder 15gm Bottle 1 APPLIC TOPICAL ×2 (09:06→22:09)
[2022-05-21] MEDS: DAKIN'S SOL HALF STRENGTH (=0.25%) 1 APPLIC TOPICAL (10:00)
[2022-05-21 14:46] VITALS: BP 104/55; PULSE 58; RESP 16; TEMP 36.2; O2SAT 97
[2022-05-22] MEDS: Pantoprazole Sodium 20 MG Tablet PO (06:55)
[2022-05-22] MEDS: Gabapentin 300 MG Capsule PO (06:55)
--- NOTE | 2022-05-22 08:17 | WOUNDNOTE ---
skin photo: left foot
--- NOTE | 2022-05-22 08:17 | WOUNDNOTE ---
wound photo: left lower leg
--- NOTE | 2022-05-22 08:18 | WOUNDNOTE ---
wound photo: left heel
--- NOTE | 2022-05-22 08:19 | WOUNDNOTE ---
wound photo: left buttock
--- NOTE | 2022-05-22 11:00 | NURSING ---
Pt's urine [place], and cloudy with blood clots. updated N.O. for urinalysis. Urine collected and sent.
[2022-05-22 11:21] LABS: Mucous, Urine 0 SEEN /hpf (<or=2+); Squamous Epithelial Cells - UA 0 SEEN /hpf (5-10)
[2022-05-22 11:25] LABS: Color, Urine Red (Yellow); Glucose, Dipstick Normal (Normal); Ketone-Dipstick 5 mg/dl (Negative); Leukocyte Esterase-Dipstick 500 /ul (Negative); Nitrite-Dipstick Positive (Negative); Occult Blood-Urine 250 /ul (Negative); Protein-Dipstick 100 mg/dl (Negative); Urine Bilirubin Dipstick Negative (Negative); Urine Clarity Clear (Clear); Urine Urobilinogen Normal (Normal)
[2022-05-22 11:41] LABS: Red Blood Cells-Urine > 100 SEEN /hpf (0-5)
[2022-05-22 11:42] LABS: White Blood Cells 50-100 SEEN /hpf (0-5)
[2022-05-22 11:43] LABS: Bacteria 2+ /hpf (None Seen)
[2022-05-22 11:53] VITALS: TEMP 36.9
--- NOTE | 2022-05-22 12:29 | NURSING ---
Pt left TCU @12:15 for surgery.
--- NOTE | 2022-05-22 12:52 | WOUNDNOTE ---
Text sent to Dr Lee and Magda DAMPER MAKER notifying them of UTI per nursing request. surgery is still planned for this afternoon. Pt on a low air loss mattress. Plan according to nursing is for overnight stay in the hospital and then patient can return to TCU.
--- NOTE | 2022-05-22 18:19 | DS.PCM_ITS ---
Providers Date of Admission: 04/17/22 Primary Care Physician: Dr. Vivian Payne DO Consultations 04/18/22 11:10 Consult: Onc/Wound/nuclear medicine tech Routine Comment: Reason for Consult:: blisters,incisions RT foot/ankle/toes 05/15/22 12:34 Consult: Plastic Surgery Routine Consulting Provider: Jose Lee Reason for Consult: wound debridement EMERGENT Consult: No MD Notified: Yes Date Notified: 05/15/22 Time Notified: 14:36 Method of Notification: Verbal Reason For Visit: FALL Diagnosis Discharge Diagnosis (1) Pressure ulcer of sacral region, stage 4: Status: Chronic Code(s): L89.154 - Pressure ulcer of sacral region, stage 4 (2) Skin necrosis: Status: Chronic Code(s): I96 - Gangrene, not elsewhere classified (3) Transient disorientation: Status: Acute Code(s): R41.0 - Disorientation, unspecified (4) Fall in home: Status: Chronic Code(s): W19.XXXA - Unspecified fall, initial encounter; Y92.009 - Unspecified place in unspecified non-institutional (private) residence as the place of occurrence of the external cause Plan 72 year old female with below past medical history suffered fall from second story, hospitalized for multi trauma, underwent left tibia intramedullary nail fixation, right hip anterograde intramedullary nail, complicated by encephalopathy from urinary tract infection, admitted to TCU with debility, here for rehabilitation, strengthening, prior to discharge home alone. * Debility - PT/OT. * Pain - Tylenol 1000mg q8, Oxycodone 5-10mg q6h prn pain (1-5, 6-10), Lidoderm patch 1 patch topical daily. * Bowel - Miralax 17gm daily, Senna/colace 2 tablet bid, Lactulose 20gm bid, Dulcolax 10mg pr daily prn, MOM 30ml daily prn. * Adult immunization - Administer pneumonia vaccine, covid19 vaccine, flu vaccine as appropriate. * DVT prophylaxis - Hold. * CV prophylaxis - Aspirin 81mg daily. * Calcium deficiency - Calcium 500mg tidcm. * Neuropathic pain - Gabapentin 300mg tid. * Lactose intolerance - Lactase 9,000 units daily. * GI prophylaxis - Lactobacillus 1 tablet daily. * GERD - Pantoprazole 20mg q48h. * Vitamin D deficiency - D3 50mcg daily. * Anxiety - Xanax 0.5mg tid prm. * Right lower lobe lung mass - PET/CT and/or biopsy as outpatient. * Sore throat - BMX 15ml po q3h prn. * Left buttock wound - culture grew E. Coli, Staph, Keflex 500mg q12h thru 05/18/2022, Consult Dr. Lee to debride wound. * Skin irritation - Calmoseptine topical tid, Petroleum topical daily. * Tinea Corporis - Nystatin powder topical bid. * Nausea - Zofran 8mg q8h prn, Promethazine 25mg q4h prn. * Dry Nares - Sodium chloride 1 spray nasal bid prn. Medications at Discharge Home Medications Probiotic 1 cap PO/SL DAILY digestion 04/17/22 acetaminophen 500 mg tablet 1,000 mg PO Q6H PRN Pain 04/17/22 aspirin 81 mg capsule 81 mg PO DAILY blood thinner 04/17/22 biotin 5,000 mcg disintegrating tablet 5,000 mcg PO DAILY supplement 04/17/22 calcium 600 mg capsule 600 mg PO TID supplement 04/17/22 cholecalciferol (vitamin D3) 25 mcg (1,000 unit) capsule (Vitamin D3) 50 mcg PO DAILY supplement 04/17/22 colestipol 1 gram tablet 1 g PO DAILY supplement 04/17/22 cyanocobalamin (vitamin B-12) 5,000 mcg sublingual tablet (Vitamin B-12) 5,000 mcg sublingual DAILY supplement 04/17/22 cyclobenzaprine 5 mg tablet 5 mg PO TID muscle spasms 04/17/22 esomeprazole magnesium 20 mg capsule,delayed release (Nexium) 20 mg PO DAILY reflux 04/17/22 gabapentin 100 mg capsule 100 mg PO TID pain 04/17/22 lactase 9,000 unit tablet 9,000 unit PO DAILY supplement 04/17/22 lidocaine 4 % topical patch (Salonpas (lidocaine)) 1 patch topical DAILY pain metronidazole 0.75 % topical cream 1 applic topical DAILY topical 04/17/22 omega 0-nol-ijf-fish oil 300 mg-1,000 mg capsule (Fish Oil) 2 cap PO DAILY supplement 04/17/22 oxycodone 5 mg capsule 5 - 10 mg PO Q6H PRN Pain 04/17/22 sennosides 8.6 mg-docusate sodium 50 mg tablet (Senna with Docusate Sodium) 1 tab PO BID stool softener 04/17/22 pantoprazole 20 mg tablet,delayed release (Protonix) 20 mg PO DAILY 05/22/22 Hospital Course Operations - (As below.) Procedures None Summary of Care Provided Minutes Spent on Discharge: 30 Hospital Course: 72 year old female with below past medical history suffered fall from second story, hospitalized for multi trauma, underwent left tibia intramedullary nail fixation, right hip anterograde intramedullary nail, complicated by encephalopathy from urinary tract infection, admitted to TCU with debility, here for rehabilitation, strengthening, prior to discharge home alone. Discharge to [facility] 05/22/2022 for debridement left buttock wound with Dr. Lee. Weight / BMI Weight Weight: 57.062 kg Body Mass Index (BMI) 23.4 ABG / Lab / Microbiology Data Result Diagrams: 05/16/22 05:28 05/16/22 05:28 Laboratory: Laboratory Results - last 24 hr 05/22/22 09:45: Urine Color Red, Urine Clarity Clear, Urine pH 8.0, Ur Specific Wells 1.010, Urine Protein 100 H, Urine Glucose (UA) Normal, Urine Ketones 5 H , Urine Occult Blood 250 H, Urine Nitrite Positive H, Urine Bilirubin Negative, Urine Urobilinogen Normal, Ur Leukocyte Esterase 500 H, Urine RBC > 100 SEEN, Urine WBC 50-100 SEEN, Ur Squamous Epith Cells 0 SEEN, Urine Bacteria 2+, Urine Mucus 0 SEEN Microbiology: Microbiology 05/09/22 22:32 Wound - Buttock Gram Stain - Final 05/09/22 22:32 Wound - Buttock Wound Culture - Final Escherichia coli Staphylococcus aureus 05/01/22 19:00 Urine, Clean Catch Urine Culture - Final Corynebacterium amycolatum/xer 04/24/22 13:20 Urine, Clean Catch Urine Culture - Final Corynebacterium amycolatum 04/19/22 08:50 Nasal Secretion SARS-CoV-2 Antigen (Rapid) - Final 04/19/22 07:22 Nasal Secretion SARS-CoV-2 Antigen (Rapid) - Final D/C Instructions Discharge Diet: No restrictions Discharge Activity: Return to Normal Activity, May Shower and Use Walker Weight Bearing Status: Weight bearing as tolerated Call your doctor if you observe: Fever of 101 or Higher, Inability to urinate, Inability to have a bowel movement, Shortness of breath, Dizziness, Fainting spells, Swelling in the ankles, Chest pain and Uncontrolled pain Additional Instructions: Discharge to [facility] 05/22/2022 for debridement left buttock wound with Dr. Lee. Please Follow Up With: Dax Pope Meaningful Use Info Meaningful Use Diagnoses (Choose all that apply): None applicable Discharge Plan Admission Admit Date/Time: 04/17/22 16:39 Primary Reason for Your Visit: Debility. Attending Provider: Don Lyons Chi Primary Care Provider: Vivian Payne Consulting Providers: Jose Lee Instructions Additional Instructions / Restrictions: Discharge to [facility] 05/22/2022 for debridement left buttock wound with Dr. Lee. Discharge Orders/Prescriptions Prescriptions: No Action calcium 600 mg Capsule 600 mg PO TID lidocaine [Salonpas (lidocaine)] 4 % Adhesive Patch,Medicated 1 patch TOPICAL DAILY sennosides-docusate sodium [Senna with Docusate Sodium] 8.6-50 mg Tablet 1 tab PO BID acetaminophen 500 mg Tablet 1,000 mg PO Q6H PRN (Reason: Pain) lactase [Dairy Digestive Supplement] 9,000 unit Tablet 9,000 unit PO DAILY oxycodone 5 mg Capsule 5 - 10 mg PO Q6H PRN (Reason: Pain) Rx Instructions: take 5-10mg q6PRN for pain gabapentin 100 mg Capsule 100 mg PO TID colestipol 1 gram Tablet 1 g PO DAILY biotin 5,000 mcg Tablet,Disintegrating 5,000 mcg PO DAILY aspirin 81 mg Capsule 81 mg PO DAILY metronidazole 0.75 % Cream 1 applic TOPICAL DAILY esomeprazole magnesium [Nexium] 20 mg Capsule,Delayed Release(Dr/Ec) 20 mg PO DAILY cholecalciferol (vitamin D3) [Vitamin D3] 25 mcg (1,000 unit) Capsule 50 mcg PO DAILY cyclobenzaprine 5 mg Tablet 5 mg PO TID omega 0-pud-wkr-fish oil [Fish Oil] 300-1,000 mg Capsule 2 cap PO DAILY cyanocobalamin (vitamin B-12) [Vitamin B-12] 5,000 mcg Tablet, Sublingual 5,000 mcg SUBLINGUAL DAILY Probiotic 1 cap PO/SL DAILY pantoprazole [Protonix] 20 mg Tablet,Delayed Release (Dr/Ec) 20 mg PO DAILY Referrals / Follow Up: Vivian Payne DO [Primary Care Provider] - Disposition Disposition (needs filled in before D/C Order can be placed): Acute [facility]
[2022-05-23] MEDS: Calcium (Elemental) 500 MG Tablet PO ×2 (12:57→17:52)
[2022-05-23] MEDS: Gabapentin 300 MG Capsule PO ×2 (12:58→17:52)
[2022-05-23] MEDS: Acetaminophen 500 MG Tablet 1000 MG PO ×2 (13:00→20:45)
[2022-05-23 15:29] VITALS: BP 108/51; PULSE 63; RESP 18; TEMP 37.3; O2SAT 96
[2022-05-23] MEDS: Senna/Docusate Sodium 1 Tablet 2 TABLET PO (17:52)
[2022-05-23] MEDS: Juven (unflavored) Packet 1 PACKET PO (20:43)
[2022-05-23] MEDS: oxyCODONE 5 MG Tablet PO (20:44)
[2022-05-23] MEDS: Nystatin Powder 15gm Bottle 1 APPLIC TOPICAL (20:50)
[2022-05-24 06:04] LABS: Absolute Lymphocyte Count 1.18 X10^3/uL (0.83-4.51); Absolute Neutrophil Count 8.9 X10^3/uL (2.0-7.7); Basophil# 0.03 X10^3/uL; Basophil% 0.3 % (0-1); Eosinophil# 0.38 X10^3/uL; Eosinophils% 3.4 % (0-5); Hematocrit 34.2 % (37-47); Hemoglobin 10.4 g/dL (12.0-15.0); Lymphocyte # 1.18 X10^3/ul (0.83-4.51); Lymphocyte % 10.4 % (19-41); Mean Corp Hgb Conc 30.4 g/dL (32-36); Mean Corpuscular Hgb 28.7 pg (27.0-32.0); Mean Corpuscular Volume 94.2 fL (81-99); Mean Platelet Vol. 9.1 fl (6.2-12.0); Monocyte# 0.82 X10^3/uL; Monocyte% 7.2 % (0-10); NRBC Flagged by Analyzer 0 % (0-5); Neutrophil # 8.89 X10^3/uL (2.7-7.7); Neutrophil % 78.3 % (47-70); Platelet Count 406 K/mm3 (150-450); RBC Distribution Width CV 14.7 % (11.6-14.6); RBC Distribution Width SD 51.2 fl (35.1-43.9); Red Blood Count 3.63 M/mm3 (4.2-5.4); White Blood Count 11.3 K/mm3 (4.4-11.0)
[2022-05-24 06:25] LABS: Anion Gap 5 (5-15); BUN 16 mg/dL (7-18); BUN/Creat Ratio 31.4 RATIO (10-20); Calcium,Total 8.8 mg/dL (8.5-10.1); Chloride 101 mmol/L (98-107); Creatinine, Serum 0.51 mg/dL (0.55-1.02); EST Glomerular Filtration Rate 126 mL/min (>60); Est Glom Filt Rate - Afr Amer 152 mL/min (>60); Estimated Creatinine Clearance 43.84 ml/min; Glucose 107 mg/dL (74-106); Potassium 4.4 mmol/L (3.5-5.1); Sodium Level 137 mmol/L (136-145)
[2022-05-24] MEDS: Acetaminophen 500 MG Tablet 1000 MG PO ×3 (06:36→20:53)
[2022-05-24] MEDS: levoFLOXacin 500 MG Tablet PO (06:36)
[2022-05-24] MEDS: Lidocaine 5% Patch 1 PATCH TOPICAL (06:36)
[2022-05-24] MEDS: oxyCODONE 5 MG Tablet PO ×2 (08:30→20:37)
[2022-05-24] MEDS: Pantoprazole Sodium 20 MG Tablet PO (08:31)
[2022-05-24] MEDS: Senna/Docusate Sodium 1 Tablet 2 TABLET PO ×2 (08:31→18:05)
[2022-05-24] MEDS: Calcium (Elemental) 500 MG Tablet PO ×3 (08:31→18:05)
[2022-05-24] MEDS: Gabapentin 300 MG Capsule PO ×3 (08:31→18:05)
[2022-05-24] MEDS: Polyethylene Glycol 3350 17 GM PACKET PO (08:31)
[2022-05-24] MEDS: Aspirin 81 MG TAB.CHEW PO (08:31)
[2022-05-24] MEDS: Cholecalciferol (VIT D3) 25 MCG TABLET (1,000 UNITS) 50 MCG PO (08:31)
[2022-05-24] MEDS: Juven (unflavored) Packet 1 PACKET PO (08:32)
[2022-05-24] MEDS: Nystatin Powder 15gm Bottle 1 APPLIC TOPICAL ×2 (08:35→20:57)
[2022-05-24] MEDS: Petrolatum 33% Tube 1 APPLIC TOPICAL (08:36)
--- NOTE | 2022-05-24 11:22 | WOUNDNOTE ---
There is minimal bloody drainage noted in the VAC canister. dressing remains intact. good seal noted at 150mmHg low continuous suction. plan to change the dressing Sunday to get patient on a schedule. will monitor.
[2022-05-24 14:38] VITALS: BP 139/66; PULSE 14; RESP 14; TEMP 36.6; O2SAT 97
[2022-05-24] MEDS: Magnesium Hydroxide 30 ML UDC PO (18:05)
[2022-05-24] MEDS: Hydrocortisone 2.5% Crm 1 APPLIC TOPICAL (18:39)
[2022-05-24 20:39] VITALS: PULSE 60; RESP 14; O2SAT 94
[2022-05-25] MEDS: Acetaminophen 500 MG Tablet 1000 MG PO ×3 (06:12→21:00)
[2022-05-25] MEDS: levoFLOXacin 500 MG Tablet PO (06:13)
[2022-05-25] MEDS: Hydrocortisone 2.5% Crm 1 APPLIC TOPICAL ×2 (06:13→20:41)
[2022-05-25] MEDS: Lidocaine 5% Patch 1 PATCH TOPICAL (06:16)
[2022-05-25] MEDS: Lactulose 20 GM/30 ML UDC PO (06:18)
[2022-05-25] MEDS: Ondansetron 8 MG Tablet PO (06:49)
[2022-05-25] MEDS: Cholecalciferol (VIT D3) 25 MCG TABLET (1,000 UNITS) 50 MCG PO (08:51)
[2022-05-25] MEDS: Aspirin 81 MG TAB.CHEW PO (08:51)
[2022-05-25] MEDS: Gabapentin 300 MG Capsule PO ×3 (08:51→17:54)
[2022-05-25] MEDS: Juven (unflavored) Packet 1 PACKET PO ×2 (08:52→17:58)
[2022-05-25] MEDS: Calcium (Elemental) 500 MG Tablet PO ×3 (08:52→17:58)
[2022-05-25] MEDS: Nystatin Powder 15gm Bottle 1 APPLIC TOPICAL ×2 (08:55→20:45)
[2022-05-25] MEDS: Petrolatum 33% Tube 1 APPLIC TOPICAL (08:55)
--- NOTE | 2022-05-25 10:44 | WOUNDNOTE ---
wound photo: sacrum
[2022-05-25 11:07] VITALS: PULSE 56; O2SAT 97
--- NOTE | 2022-05-25 12:27 | NURSING ---
Wound Nurse changed wound vac this shift d/t wound vac leaking. Will need changed on 05/27/22 per Wound Nurse.
[2022-05-25 14:59] VITALS: BP 103/44; PULSE 59; RESP 14; TEMP 36.7; O2SAT 96
[2022-05-25] MEDS: oxyCODONE 5 MG Tablet PO (20:49)
[2022-05-26] MEDS: Acetaminophen 500 MG Tablet 1000 MG PO ×3 (06:47→20:30)
[2022-05-26] MEDS: levoFLOXacin 500 MG Tablet PO (06:47)
[2022-05-26] MEDS: Lidocaine 5% Patch 1 PATCH TOPICAL (06:48)
[2022-05-26] MEDS: Calcium (Elemental) 500 MG Tablet PO ×3 (08:34→17:39)
[2022-05-26] MEDS: Aspirin 81 MG TAB.CHEW PO (08:34)
[2022-05-26] MEDS: Juven (unflavored) Packet 1 PACKET PO ×2 (08:35→17:38)
[2022-05-26] MEDS: Cholecalciferol (VIT D3) 25 MCG TABLET (1,000 UNITS) 50 MCG PO (08:36)
[2022-05-26] MEDS: Senna/Docusate Sodium 1 Tablet 2 TABLET PO ×2 (08:40→17:39)
[2022-05-26] MEDS: Gabapentin 300 MG Capsule PO ×3 (08:42→17:39)
[2022-05-26] MEDS: Hydrocortisone 2.5% Crm 1 APPLIC TOPICAL (10:20)
[2022-05-26] MEDS: Pantoprazole Sodium 20 MG Tablet PO (10:22)
[2022-05-26] MEDS: Polyethylene Glycol 3350 17 GM PACKET PO (10:23)
[2022-05-26] MEDS: Petrolatum 33% Tube 1 APPLIC TOPICAL (10:25)
[2022-05-26] MEDS: Nystatin Powder 15gm Bottle 1 APPLIC TOPICAL ×2 (10:28→20:37)
--- NOTE | 2022-05-26 11:53 | PCM.PN.SRG ---
Subjective Subjective Postop #4 Patient is in bed, her wound VAC dressing has come loose. She is complaining itching surrounding her sacral ulcer. She states her pain is well controlled. She has concerns about how much she needs to drink with the supplements that it making her too full to eat. Objective Data Objective Data Vital Signs: Vital Signs Temp Pulse Resp BP Pulse Ox O2 Del Method 98.1 F 59 L 14 103/44 L 96 Room Air 05/25/22 14:59 05/25/22 14:59 05/25/22 14:59 05/25/22 14:59 05/25/22 14:59 05/25/22 14:59 Oxygen Delivery Method Room Air Weight: 122 lb 3 oz Body Mass Index (BMI) 23.4 Intake & Output: Intake and Output for Last 24 Hours 05/24/22 05/25/22 05/26/22 23:59 23:59 23:59 Intake Total 1100 / 1100 960 / 960 240 / 240 Output Total 1350 / 1350 1300 / 1300 950 / 950 Balance -250 / -250 -340 / -340 -710 / -710 Lab / Micro Data Result Diagrams: 05/24/22 05:24 05/24/22 05:24 Micro: Microbiology 05/22/22 09:45 Urine Catheter - Vázquez Urine Culture - Final Pseudomonas aeroginosa 05/09/22 22:32 Wound - Buttock Gram Stain - Final 05/09/22 22:32 Wound - Buttock Wound Culture - Final Escherichia coli Staphylococcus aureus 05/01/22 19:00 Urine, Clean Catch Urine Culture - Final Corynebacterium amycolatum/xer 04/24/22 13:20 Urine, Clean Catch Urine Culture - Final Corynebacterium amycolatum 04/19/22 08:50 Nasal Secretion SARS-CoV-2 Antigen (Rapid) - Final 04/19/22 07:22 Nasal Secretion SARS-CoV-2 Antigen (Rapid) - Final Physical Exam Const alert, oriented x3 and no apparent distress General Appearance: cooperative HEENT normocephalic Neck full ROM Resp normal respiratory effort Effort and Inspection: able to speak in complete sentences Cardio regular rate Extremity normal capillary refill Skin Wound Narrative: Sacral ulcer is stable. No active bleeding. The seamus wound is excoriated with a red, itchy, yeast rash. Neuro oriented x3 Psych mental status grossly normal, thought process normal and cooperative Assessment & Plan Assessment/Plan (1) Pressure ulcer of sacral region, stage 4: (2) Skin necrosis: (3) Transient disorientation: (4) Fall in home: PLAN: Plan She is tolerating the wound VAC dressing but it came loose yesterday after she had a BM and it came loose today after her PT. The wound bed is stable with no bleeding. The seamus wound is pink and excoriated that looks like yeast. She has nystatin powder ordered. Will put the wound VAC on hold for the weekend, place slightly moistened Dakins 0.25% gauze into the ulcer twice daily (and as needed) and cover with ABD. At the time of the dressing change use Nystatin powder twice daily. Trying to keep the seamus wound dry to prevent further maceration. Hopefully taking a break from the wound VAC for a few days will help her seamus wound to heal. Will restart the wound vac next week once her seamus wound has improved. Preliminary operative cultures are Escherichia coli and Gram positive organism. Anaerobes pending. She is currently on Levaquin and tolerating that well. ? Urine preliminary culture is GNR non rural service engineer. Patient the rash on her abdomen is stable and has not worsened since stopping her IV antibiotics. The rash on her abdomen is a fine, pink, prickly rash that is itchy.? She is having hydrocortisone placed on it and that is helping with the itchiness. Offered benadryl, but she declined because it makes her sleepy. Patient has multiple antibiotic allergies.? Discussed with patient what her allergy to Levaquin was and she states that she gets muscle pain from it. We will start her on Levaquin and monitor her closely. Labs from 04/24/22 Hgb 10.4, BUN 21.4. Creat 0.51. Prealbumin 12.8 on 05/23/22. Encourage protein intake to help with wound healing.? Will continue Tommy BID as supplement. Encouraged patient to try to eat her meals first then drink her supplements. She is complaining of feeling so full from both eating and drinking all her supplements that she is feeling ill. Stressed importance of eating her food. Charges/Coding Procedures Integumentary [id number]: [id number] Global Visit
[2022-05-26 13:29] VITALS: BP 92/52; PULSE 56; RESP 14; TEMP 36.6; O2SAT 96
[2022-05-26] MEDS: oxyCODONE 5 MG Tablet PO ×2 (13:35→20:29)
[2022-05-26] MEDS: Ondansetron 8 MG Tablet PO (22:14)
[2022-05-26] MEDS: DAKIN'S SOL HALF STRENGTH (=0.25%) 1 APPLIC TOPICAL (22:14)
[2022-05-26 23:30] VITALS: O2SAT 96
[2022-05-27] MEDS: oxyCODONE 5 MG Tablet PO ×3 (03:09→20:09)
--- NOTE | 2022-05-27 04:44 | NURSING ---
Around 0300, pt called for this nurse to come into her room. Upon entering room, pt observed to be tearful and c/o pressure in bladder and feeling as though she had to urinate, despite having an indwelling catheter. Abdomen was slightly distended and tender when palpitated. Only 250 cc was emptied from mayer bag by aide around 0200. Catheter was advanced further into the bladder and 800 cc drained into the bag. Bladder was scanned for 0 mL. Pt stated the pressure was relieved and she felt much better.
[2022-05-27] MEDS: levoFLOXacin 500 MG Tablet PO (06:42)
[2022-05-27] MEDS: Acetaminophen 500 MG Tablet 1000 MG PO ×3 (06:42→21:16)
[2022-05-27] MEDS: Lidocaine 5% Patch 1 PATCH TOPICAL (06:43)
[2022-05-27] MEDS: Gabapentin 300 MG Capsule PO ×3 (08:24→17:30)
[2022-05-27] MEDS: Cholecalciferol (VIT D3) 25 MCG TABLET (1,000 UNITS) 50 MCG PO (08:27)
[2022-05-27] MEDS: Senna/Docusate Sodium 1 Tablet 2 TABLET PO (08:27)
[2022-05-27] MEDS: Calcium (Elemental) 500 MG Tablet PO ×3 (08:28→17:30)
[2022-05-27] MEDS: Juven (unflavored) Packet 1 PACKET PO ×2 (08:28→17:30)
[2022-05-27] MEDS: Aspirin 81 MG TAB.CHEW PO (08:28)
[2022-05-27] MEDS: Petrolatum 33% Tube 1 APPLIC TOPICAL (08:36)
[2022-05-27] MEDS: Nystatin Powder 15gm Bottle 1 APPLIC TOPICAL ×2 (08:37→21:16)
[2022-05-27] MEDS: DAKIN'S SOL HALF STRENGTH (=0.25%) 1 APPLIC TOPICAL ×2 (09:42→17:33)
[2022-05-27 09:47] VITALS: PULSE 60; RESP 16; O2SAT 97
[2022-05-27 16:00] VITALS: BP 96/47; PULSE 57; RESP 14; TEMP 36.6; O2SAT 98
[2022-05-27] MEDS: Hydrocortisone 2.5% Crm 1 APPLIC TOPICAL (16:35)
--- NOTE | 2022-05-27 18:00 | NURSING ---
dressing changed to coccyx wound, orders followed per wound nurse.
[2022-05-28] MEDS: oxyCODONE 5 MG Tablet PO ×3 (01:34→21:51)
[2022-05-28] MEDS: Acetaminophen 500 MG Tablet 1000 MG PO ×3 (06:15→21:53)
[2022-05-28] MEDS: levoFLOXacin 500 MG Tablet PO (06:15)
[2022-05-28] MEDS: Lidocaine 5% Patch 1 PATCH TOPICAL (06:15)
[2022-05-28] MEDS: DAKIN'S SOL HALF STRENGTH (=0.25%) 1 APPLIC TOPICAL ×2 (06:19→17:35)
[2022-05-28] MEDS: Gabapentin 300 MG Capsule PO ×3 (08:05→17:37)
[2022-05-28] MEDS: Ondansetron 8 MG Tablet PO (08:07)
[2022-05-28] MEDS: Juven (unflavored) Packet 1 PACKET PO ×2 (08:08→17:34)
[2022-05-28] MEDS: Aspirin 81 MG TAB.CHEW PO (08:09)
[2022-05-28] MEDS: Cholecalciferol (VIT D3) 25 MCG TABLET (1,000 UNITS) 50 MCG PO (08:10)
[2022-05-28] MEDS: Senna/Docusate Sodium 1 Tablet 2 TABLET PO (08:10)
[2022-05-28] MEDS: Calcium (Elemental) 500 MG Tablet PO ×3 (08:10→17:35)
[2022-05-28] MEDS: Pantoprazole Sodium 20 MG Tablet PO (08:12)
[2022-05-28] MEDS: Hydrocortisone 2.5% Crm 1 APPLIC TOPICAL (08:16)
[2022-05-28] MEDS: Nystatin Powder 15gm Bottle 1 APPLIC TOPICAL ×2 (12:14→17:36)
[2022-05-28] MEDS: Petrolatum 33% Tube 1 APPLIC TOPICAL (12:14)
[2022-05-28 14:06] VITALS: BP 103/53; PULSE 60; RESP 18; TEMP 36.9; O2SAT 96
--- NOTE | 2022-05-28 18:00 | NURSING ---
COCCYX WOUND DRESSING CHANGED AT THIS TIME PER ORDERS. PT REPOSITIONED ON RT SIDE. HEELS ELEVATED. CALL LIGHT IN REACH.
--- NOTE | 2022-05-28 22:05 | NURSING ---
Drsg to buttock changed @ this time d/t the previous drsg coming off. Pt c/o 03/20 pain during drsg change. Rt and PRN pain medications given prior to drsg change.
[2022-05-28 22:40] VITALS: PULSE 72; RESP 16; O2SAT 98
--- NOTE | 2022-05-29 04:09 | NURSING ---
Pt c/o pressure/discomfort in lower abd and that it woke her from good sleep. Lower abd noted to be distended and painful to touch. Urinary catheter bag noted to have the same amount of urine collected as the previous assessment (05/28/22 - 2199). This nurse attempted to readjust pt and catheter, no urine flow noted. Catheter removed. When deflating the balloon only 6mls of saline was removed. New catheter inserted. Slow flow of urine noted to collect in bag. After approximately 5 minutes pt voiced relief and a total of 400cc in collection bag. Pt tolerated well. Pt voices she can now sleep.
[2022-05-29] MEDS: levoFLOXacin 500 MG Tablet PO (06:37)
[2022-05-29] MEDS: Acetaminophen 500 MG Tablet 1000 MG PO ×3 (06:37→20:30)
[2022-05-29] MEDS: Lidocaine 5% Patch 1 PATCH TOPICAL (06:38)
[2022-05-29 07:40] VITALS: RESP 16
[2022-05-29] MEDS: Calcium (Elemental) 500 MG Tablet PO ×3 (08:15→17:31)
[2022-05-29] MEDS: Juven (unflavored) Packet 1 PACKET PO ×2 (08:15→17:30)
[2022-05-29] MEDS: Aspirin 81 MG TAB.CHEW PO (08:15)
[2022-05-29] MEDS: Gabapentin 300 MG Capsule PO ×3 (08:15→17:27)
[2022-05-29] MEDS: Senna/Docusate Sodium 1 Tablet 2 TABLET PO ×2 (08:16→17:30)
[2022-05-29] MEDS: Cholecalciferol (VIT D3) 25 MCG TABLET (1,000 UNITS) 50 MCG PO (08:16)
[2022-05-29] MEDS: Petrolatum 33% Tube 1 APPLIC TOPICAL (11:33)
[2022-05-29] MEDS: oxyCODONE 5 MG Tablet PO ×2 (14:33→20:28)
[2022-05-29 14:50] VITALS: BP 100/50; PULSE 85; RESP 20; TEMP 36.8; O2SAT 98
--- NOTE | 2022-05-29 14:51 | WOUNDNOTE ---
wound photo: sacrum
[2022-05-29] MEDS: DAKIN'S SOL HALF STRENGTH (=0.25%) 1 APPLIC TOPICAL ×2 (17:28→20:31)
[2022-05-29] MEDS: Nystatin Powder 15gm Bottle 1 APPLIC TOPICAL ×2 (17:28→20:32)
[2022-05-30] MEDS: levoFLOXacin 500 MG Tablet PO (06:46)
[2022-05-30] MEDS: Lidocaine 5% Patch 1 PATCH TOPICAL (06:46)
[2022-05-30] MEDS: Acetaminophen 500 MG Tablet 1000 MG PO ×3 (06:46→21:24)
[2022-05-30] MEDS: Ondansetron 8 MG Tablet PO ×2 (07:52→19:54)
[2022-05-30] MEDS: Senna/Docusate Sodium 1 Tablet 2 TABLET PO ×2 (08:53→16:58)
[2022-05-30] MEDS: Polyethylene Glycol 3350 17 GM PACKET PO (08:53)
[2022-05-30] MEDS: Calcium (Elemental) 500 MG Tablet PO ×3 (08:54→16:57)
[2022-05-30] MEDS: Cholecalciferol (VIT D3) 25 MCG TABLET (1,000 UNITS) 50 MCG PO (08:54)
[2022-05-30] MEDS: Gabapentin 300 MG Capsule PO ×3 (08:54→16:58)
[2022-05-30] MEDS: Juven (unflavored) Packet 1 PACKET PO ×2 (08:54→16:57)
[2022-05-30] MEDS: Aspirin 81 MG TAB.CHEW PO (08:54)
[2022-05-30] MEDS: FLUCONAZOLE 150 MG TABLET PO (08:54)
[2022-05-30] MEDS: Petrolatum 33% Tube 1 APPLIC TOPICAL (08:58)
[2022-05-30] MEDS: Nystatin Powder 15gm Bottle 1 APPLIC TOPICAL ×2 (09:00→21:25)
[2022-05-30] MEDS: Pantoprazole Sodium 20 MG Tablet PO (10:26)
[2022-05-30] MEDS: DAKIN'S SOL HALF STRENGTH (=0.25%) 1 APPLIC TOPICAL ×2 (10:26→21:25)
[2022-05-30] MEDS: Ketoconazole Cream 1 APPLIC TOPICAL ×2 (10:27→21:26)
--- NOTE | 2022-05-30 10:49 | WOUNDNOTE ---
Still some redness noted to the periwound. appears to be yeast. Dr Lyons started patient on Diflucan and nystatin cream to the periwound. plan to leave the wound VAC off until next week to see if the periwound will improve. will closely monitor.
[2022-05-30 14:35] VITALS: BP 101/57; PULSE 71; RESP 18; TEMP 36.3; O2SAT 97
--- NOTE | 2022-05-30 15:08 | PHA.CONS_ITS ---
TCU RX Drug Regimen Review Subjective: TCU May Note. 72 YOF presented to the ER with fall. Transferred to [facility] [place] and hospitalized for multi trauma, underwent left tibia intramedullary nail fixation, right hip anterograde intramedullary nail, complicated by encephalopathy from urinary tract infection. Admitted to TCU with debility for strengthening and rehabilitation. Underwent debridement left buttock wound with Dr. Lee on 05/22/22, back in TCU. Objective: Allergies diltiazem Allergy (Severe, Verified 05/19/22 20:57) itching and swelling procainamide Allergy (Unknown, Verified 05/19/22 20:57) Unknown metronidazole [From Flagyl] Allergy (Verified 05/19/22 20:57) Diarrhea Sulfa (Sulfonamide Antibiotics) Allergy (Verified 05/19/22 20:57) Anaphylaxis ciprofloxacin [From Cipro] Adverse Reaction (Severe, Verified 05/19/22 20:57) Other MUSCLE CRAMPS IN LEGS sotalol Adverse Reaction (Unknown, Verified 05/19/22 20:57) Lethargic amiodarone Adverse Reaction (Verified 05/19/22 20:57) Other worsens afib rvr flecainide Adverse Reaction (Verified 05/19/22 20:57) Other worsens afib rvr levofloxacin [From Levaquin] Adverse Reaction (Verified 05/19/22 20:57) PT UNSURE OF REACTION metoprolol Adverse Reaction (Verified 05/19/22 20:57) Itching propafenone [From Rythmol] Adverse Reaction (Verified 05/19/22 20:57) Other worsens afib rvr tramadol Adverse Reaction (Verified 05/19/22 20:57) Vomiting ALMOST ALL HEART MEDS Allergy (Uncoded 05/19/22 20:57) Unknown Current Medications Generic Name Dose Route Start Last Admin Trade Name Freq PRN Reason Stop Dose Admin Acetaminophen 1,000 mg 05/23/22 14:00 05/30/22 13:43 Acetaminophen 500 Mg Tablet PO 1,000 mg Q8 CHANEL Administration Alprazolam 0.5 mg 05/23/22 11:53 Alprazolam 0.5 Mg Tablet PO TID PRN ANXIETY/RESTLESSNESS/SLEEP Aspirin 81 mg 05/24/22 08:00 05/30/22 08:54 Aspirin 81 Mg Tab.Chew PO 81 mg 0800 CHANEL Administration Bisacodyl 10 mg 12/13/22 11:55 Bisacodyl 10 Mg Suppository RC DAILY PRN Constipation Calcium Carbonate 500 mg 05/23/22 12:45 05/30/22 13:43 Calcium (Elemental) 500 Mg Tablet PO 500 mg TIDCM CHANEL Administration Cholecalciferol 50 mcg 05/24/22 08:00 05/30/22 08:54 Cholecalciferol (Vit D3) 25 Mcg Tablet (1,000 Units) PO 50 mcg DAILYCM CHANEL Administration Fluconazole 150 mg 05/30/22 08:00 05/30/22 08:54 Fluconazole 150 Mg Tablet PO 06/20/22 08:01 150 mg QWEEK CHANEL Administration Gabapentin 300 mg 05/23/22 12:45 05/30/22 13:43 Gabapentin 300 Mg Capsule PO 300 mg TIDCM CHANEL Administration Hydrocortisone 1 applic 05/24/22 18:09 05/28/22 08:16 Hydrocortisone 2.5% Crm TOPICAL 1 applic BID PRN PRN Administration ITCHING Protocol Sodium Chloride 250 mls @ 15 mls/hr 05/23/22 11:44 IV .[id number] PRN Saline Flush Sodium Chloride 250 mls @ 15 mls/hr 05/23/22 11:47 IV .[id number] PRN Saline Flush Ketoconazole 1 applic 05/30/22 07:55 05/30/22 10:27 Ketoconazole Cream TOPICAL 1 applic BID CHANEL Administration Protocol L-Arginine/L-Glutamine/Calcium HMB 1 packet 05/23/22 17:00 05/30/22 08:54 Tommy (Unflavored) Packet PO 1 packet BIDCM CHANEL Administration Lactase 9,000 unit 05/24/22 08:00 05/30/22 08:53 Lactase 9,000 Unit Tablet PO 9,000 unit DAILY@0800 CHANEL Administration Lactobacillus Acidophilus 1 tablet 05/24/22 08:00 05/30/22 08:54 Lactobacillus Acidophilus PO 1 tablet DAILY@0800 CHANEL Administration Lactulose 20 gm 05/23/22 12:00 05/25/22 06:18 Lactulose 20 Gm/30 Ml Udc PO 20 gm BID PRN Administration Constipation Levofloxacin 500 mg 05/24/22 06:00 05/30/22 06:46 Levofloxacin 500 Mg Tablet PO 06/06/22 06:01 500 mg DAILY CHANEL Administration Lidocaine 1 patch 05/24/22 06:00 05/30/22 06:46 Lidocaine 5% Patch TOPICAL 1 patch DAILY [facility] Administration Protocol Lidocaine/Diphenhydr/Alum/Mg/Simeth 15 ml 05/23/22 11:55 Bmx Liquid 180 Ml PO Q3H PRN PRN MOUTH IRRITATION Magnesium Hydroxide 30 ml 05/23/22 11:59 05/24/22 18:05 Magnesium Hydroxide 30 Ml Udc PO 30 ml DAILY PRN Administration Constipation Multi-Ingredient Cream 1 applic 05/24/22 10:00 05/30/22 08:58 Petrolatum 33% Tube TOPICAL 1 applic 1000 [facility] Administration Protocol Nystatin 1 applic 05/23/22 22:00 05/30/22 09:00 Nystatin Powder 15gm Bottle TOPICAL 1 applic BID@1000,2200 [facility] Administration Protocol Ondansetron HCl 8 mg 05/23/22 12:02 05/30/22 07:52 Ondansetron 8 Mg Tablet PO 8 mg Q8H PRN PRN Administration NAUSEA/VOMITING Oxycodone HCl 5 - 10 mg 05/23/22 12:02 05/29/22 20:28 Oxycodone 5 Mg Tablet PO 10 mg Q4H PRN Administration Pain 1-10 Pantoprazole Sodium 20 mg 05/24/22 10:00 05/30/22 10:26 Pantoprazole Sodium 20 Mg Tablet PO 20 mg Q48 CHANEL Administration Polyethylene Glycol 17 gm 05/24/22 08:00 05/30/22 08:53 Polyethylene Glycol 3350 17 Gm Packet PO 17 gm DAILY@0800 CHANEL Administration Promethazine HCl 25 mg 05/23/22 12:03 Promethazine 25 Mg Tablet PO Q4H PRN PRN NAUSEA/VOMITING Senna/Docusate Sodium 2 tablet 05/23/22 17:00 05/30/22 08:53 Senna/Docusate Sodium 1 Tablet PO 2 tablet BIDCM [facility] Administration Sodium Chloride 10 - 40 ml 05/23/22 11:53 0.9% Saline Lock 10 Ml Syringe IV UD PRN SALINE FLUSH Sodium Chloride 1 spray 05/23/22 12:05 Sodium Chloride 0.65% 1 Ludowici Ludowici.Btl NASAL BID PRN PRN NASAL DRYNESS Sodium Hypochlorite 1 applic 05/28/22 10:00 05/30/22 10:26 Dakin's Estela Half Strength (=0.25%) TOPICAL 1 applic BID@1000,2200 CHANEL Administration Protocol Problem List (Last Updated 05/19/22 @ 21:[address] Jose Lee MD) Skin necrosis (Chronic) Debility (Acute) Acute encephalopathy (Acute) Urinary tract infection (Acute) Multiple trauma (Acute) Open left tibial fracture (Acute) Closed right hip fracture (Acute) Atrial fibrillation (Acute) GERD (gastroesophageal reflux disease) (Acute) Rheumatoid arthritis (Acute) Transient disorientation (Acute) Fall in home (Chronic) Pressure ulcer of sacral region, stage 4 (Chronic) Vital Signs Temp Pulse Resp BP Pulse Ox O2 Del Method 97.3 F L 71 18 101/57 L 97 Room Air 05/30/22 14:35 05/30/22 14:35 05/30/22 14:35 05/30/22 14:35 05/30/22 14:35 05/30/22 14:35 Oxygen Delivery Method Room Air Weight: 54.25 kg Body Mass Index (BMI) 23.4 Sodium 137 mmol/L (136-145) 05/24/22 05:24 Potassium 4.4 mmol/L (3.5-5.1) 05/24/22 05:24 Chloride 101 mmol/L (98-107) 05/24/22 05:24 Carbon Dioxide 31.0 mmol/L (21.0-32.0) 05/24/22 05:24 Anion Gap 5 (5-15) 05/24/22 05:24 BUN 16 mg/dL (7-18) 05/24/22 05:24 Creatinine 0.51 mg/dL (0.55-1.02) L 05/24/22 05:24 Est GFR (MDRD) Af Amer 152 mL/min (>60) 05/24/22 05:24 Est GFR (MDRD) Non-Af 126 mL/min (>60) 05/24/22 05:24 BUN/Creatinine Ratio 31.4 RATIO (10-20) H 05/24/22 05:24 Glucose 107 mg/dL (74-106) H 05/24/22 05:24 Assessment/Plan: 1. Pain: acetaminophen 1000mg PO Q8, oxycodone 5-10mg PO Q4H PRN pain 1-10 and lidocaine 5% patch 1 patch topically daily. Please continue to monitor for increased pain, PRN usage, rash, itching, constipation (last documented bowel movement 05/19) and respiratory depression. Resident has had many doses of oxycodone for pain of 8-10 in various locations. Last dose 05/19/22. 2. Bowel: senna/docusate 2T PO BID, Miralax 17gm PO daily, MOM 30mL PO daily PRN constipation (last dose 05/24), lactulose 20gm PO BID PRN constipation (no doses) and bisacodyl 10mg RC daily PRN constipation (last dose 05/11). Please continue to monitor for constipation, diarrhea and PRN usage. Last documented bowel movement 05/19. 3. CV prophylaxis: aspirin 81mg PO daily. Please continue to monitor for S/S of bleeding and hemoglobin (last 10.4g/dL). 4. GERD: pantoprazole 20mg PO Q48H. Please continue to monitor for S/S of GERD and diarrhea (BEERs list medication, increased risk of C. diff infection). 5. GI prophylaxis: lactobacillus acidophilus: 1T PO daily. Please continue to monitor for diarrhea. 6. Calcium/vitamin D deficiency: calcium carbonate 500mg PO TIDCM and cholecalciferol 50mcg PO daily. Please continue to monitor calcium levels (last 8.8mg/dL) and vitamin D levels (last 08/2019, addressed in last note). 7. Lactose intolerance: Lactase 9,000units PO daily. Please continue to monitor. 8. Sore throat: BMX solution 15mL MM Q3H PRN mouth irritation. Resident has not had any doses yet. Please consider stopping this medication as the resident has not used any doses. Thanks. Please continue to monitor for mouth irritation and PRN usage. 9. Left buttock wound (E. coli and MSSA)/UTI (pseudomonas): levofloxacin 500mg PO daily thru 06/06/22, fluconazole 150mg PO weekly thru 06/20/22 and ketoconazole cream 1 application topically BID. All bugs sensitive to levofloxacin. Allergy listed to levofloxacin but resident appears to be tolerating, denied PRN Benadryl for itching. Please continue to monitor for S/S of infection, renal function, diarrhea, and tendon pain (black box warning). 10. Nausea: ondansetron 8mg PO Q8H PRN nausea/vomiting (last dose today) and promethazine 25mg PO Q4H PRN nausea/vomiting (no doses today). Please continue to monitor for nausea, vomiting, drowsiness, dry mouth and PRN usage. 11. Dry nares: NaCl 0.65% spray 1 spray nasal BID PRN nasal dryness. Resident has not used any doses. Please consider stopping this medication since no doses have been used. Thanks. Please continue to monitor for dry nares and PRN usage. Assessment/Plan for indications treated with psychotropic medications: 1. Neuropathic pain: gabapentin 300mg PO TIDCM. Please continue to monitor for neuropathic pain, confusion and renal function (dose appropriate for resident's renal function). GDR not appropriate as resident is using for neuropathic pain. 2. Anxiety: alprazolam 0.5mg PO TID PRN anxiety/sleep/restlessness. Please continue to monitor for anxiety/sleep/restlessness. Resident has not had any dos es so far, GDR not appropriate as this is a new medication and resident has not had any doses. Medical chart and medication regimen reviewed. The following medication irregularities or issues were identified: *1. BMX solution 15mL MM Q3H PRN mouth irritation. Resident has not had any doses yet. Please consider stopping this medication as the resident has not used any doses. Thanks. *2. NaCl 0.65% spray 1 spray nasal BID PRN nasal dryness. Resident has not used any doses. Please consider stopping this medication since no doses have been used. Thanks. Date of Note:: 05/30/22
[2022-05-30] MEDS: oxyCODONE 5 MG Tablet PO (19:53)
[2022-05-30] MEDS: Hydrocortisone 2.5% Crm 1 APPLIC TOPICAL (19:56)
[2022-05-30 21:47] VITALS: PULSE 78; RESP 16; O2SAT 97
[2022-05-31 05:35] LABS: Absolute Lymphocyte Count 2.22 X10^3/uL (0.83-4.51); Absolute Neutrophil Count 5.5 X10^3/uL (2.0-7.7); Basophil# 0.06 X10^3/uL; Basophil% 0.7 % (0-1); Eosinophil# 0.35 X10^3/uL; Eosinophils% 3.9 % (0-5); Hematocrit 32.3 % (37-47); Hemoglobin 10.1 g/dL (12.0-15.0); Lymphocyte # 2.22 X10^3/ul (0.83-4.51); Mean Corp Hgb Conc 31.3 g/dL (32-36); Mean Corpuscular Hgb 29.4 pg (27.0-32.0); Mean Corpuscular Volume 94.2 fL (81-99); Monocyte# 0.74 X10^3/uL; Monocyte% 8.3 % (0-10); NRBC Flagged by Analyzer 0 % (0-5); Neutrophil # 5.46 X10^3/uL (2.7-7.7); Neutrophil % 61.5 % (47-70); Platelet Count 402 K/mm3 (150-450); RBC Distribution Width CV 14.6 % (11.6-14.6); RBC Distribution Width SD 51.1 fl (35.1-43.9); Red Blood Count 3.43 M/mm3 (4.2-5.4); White Blood Count 8.9 K/mm3 (4.4-11.0)
[2022-05-31 06:05] LABS: Anion Gap 4 (5-15); BUN 31 mg/dL (7-18); BUN/Creat Ratio 57.2 RATIO (10-20); Calcium,Total 9.2 mg/dL (8.5-10.1); Chloride 103 mmol/L (98-107); Creatinine, Serum 0.54 mg/dL (0.55-1.02); EST Glomerular Filtration Rate 117 mL/min (>60); Est Glom Filt Rate - Afr Amer 142 mL/min (>60); Estimated Creatinine Clearance 42.91 ml/min; Glucose 105 mg/dL (74-106); Potassium 4.5 mmol/L (3.5-5.1); Sodium Level 138 mmol/L (136-145)
[2022-05-31] MEDS: Acetaminophen 500 MG Tablet 1000 MG PO ×3 (06:15→21:22)
[2022-05-31] MEDS: levoFLOXacin 500 MG Tablet PO (06:16)
[2022-05-31] MEDS: Ondansetron 8 MG Tablet PO (06:19)
[2022-05-31] MEDS: Lidocaine 5% Patch 1 PATCH TOPICAL (06:22)
[2022-05-31] MEDS: Juven (unflavored) Packet 1 PACKET PO ×2 (08:37→18:17)
[2022-05-31] MEDS: Senna/Docusate Sodium 1 Tablet 2 TABLET PO ×2 (08:37→18:17)
[2022-05-31] MEDS: Gabapentin 300 MG Capsule PO ×3 (08:38→18:17)
[2022-05-31] MEDS: Cholecalciferol (VIT D3) 25 MCG TABLET (1,000 UNITS) 50 MCG PO (08:38)
[2022-05-31] MEDS: Calcium (Elemental) 500 MG Tablet PO ×3 (08:38→18:18)
[2022-05-31] MEDS: Aspirin 81 MG TAB.CHEW PO (08:38)
[2022-05-31] MEDS: oxyCODONE 5 MG Tablet PO ×2 (09:59→20:09)
[2022-05-31] MEDS: Petrolatum 33% Tube 1 APPLIC TOPICAL (10:00)
[2022-05-31] MEDS: Ketoconazole Cream 1 APPLIC TOPICAL ×2 (10:01→21:23)
[2022-05-31] MEDS: Nystatin Powder 15gm Bottle 1 APPLIC TOPICAL ×2 (10:02→21:22)
[2022-05-31] MEDS: DAKIN'S SOL HALF STRENGTH (=0.25%) 1 APPLIC TOPICAL ×2 (10:02→21:25)
[2022-05-31 15:17] VITALS: BP 97/46; PULSE 55; RESP 20; TEMP 37; O2SAT 97
[2022-05-31] MEDS: Amox/Clavulanate 500 MG Tablet PO (18:16)
[2022-05-31] MEDS: Hydrocortisone 2.5% Crm 1 APPLIC TOPICAL (21:24)
[2022-06-01] MEDS: Acetaminophen 500 MG Tablet 1000 MG PO ×3 (05:28→21:37)
[2022-06-01] MEDS: Lidocaine 5% Patch 1 PATCH TOPICAL (05:29)
[2022-06-01] MEDS: levoFLOXacin 500 MG Tablet PO (05:29)
[2022-06-01] MEDS: Gabapentin 300 MG Capsule PO ×3 (08:24→17:07)
[2022-06-01] MEDS: Juven (unflavored) Packet 1 PACKET PO ×2 (08:27→17:07)
[2022-06-01] MEDS: Senna/Docusate Sodium 1 Tablet 2 TABLET PO ×2 (08:28→17:11)
[2022-06-01] MEDS: Cholecalciferol (VIT D3) 25 MCG TABLET (1,000 UNITS) 50 MCG PO (08:28)
[2022-06-01] MEDS: Calcium (Elemental) 500 MG Tablet PO ×3 (08:29→17:08)
[2022-06-01] MEDS: Amox/Clavulanate 500 MG Tablet PO ×2 (08:29→17:07)
[2022-06-01] MEDS: Aspirin 81 MG TAB.CHEW PO (08:30)
--- NOTE | 2022-06-01 08:48 | NURSING ---
Addendum entered by Jennie Lomeli 06/01/22 12:06: Dr Craven saw pt and explained to her that she may need at colostomy placed. pt very tearful, had called this nurse to room. Explained to pt that thought that she was getting stool in her coccyx wound and this nurse updated him that she was having incont stools previously d/t pt being on lactulose but that has been dc'd and resolved. pt using BSC and is walking to & from BR during day. Original Note: pt resting in chair, updated on dr craven consultation d/t possible osteomyletitis from wound pathology. pt very tearful and states oh, no wait until my daughter finds out 1:1 emotional support given. Assisted pt to BR x1 w/FWW.
[2022-06-01] MEDS: Fluconazole 100 MG Tablet PO (11:05)
[2022-06-01] MEDS: Pantoprazole Sodium 20 MG Tablet PO (11:07)
--- NOTE | 2022-06-01 11:18 | CON.PCM.ID_ITS ---
Assessment & Plan Assessment/Plan (1) Sacral osteomyelitis: PLAN: OR with Dr. Lee 05/22/22 for I&D. Surg cx with ecoli, strep, coryneb acteria, anaerobes. Bone cx with prevotella. Prior wound cx also with MSSA. On po levaquin/augmentin, would treat for 6 weeks total. Last QTC was 460. Will also give short course of fluc for erythema, then can resume weekly dosing given h/o yeast infection/thrush. Nursing reports wound has been clean since moving to bedside commode for BM; otherwise would need eval for diverting ostomy. Will follow, thank you HPI Consult Data Date of Consult: 06/01/22 HPI Narrative Reason for Consultation: osteo HPI Narrative: HILARY ULRICH, is a 72 F who originally presented 04/08/22 after found down on driveway after falling out 2nd story window. Transferred to [facility], had IM nail placed for open L tib fracture and for R hip fracture. Treated for uti while there. Transferred to TCU 04/17, had progressive sacral wound. Taken to OR 05/22/[address] Lee for I&D. Now on levaquin/augmentin for osteo. Mild pain, no fever, no n/v/d. Reports mild itching with abx. Full ROS performed and neg except as noted above. [facility] Medical History Arthritis Atrial fibrillation Cardiology follow-up encounter COVID-19 Electrical isolation of left atrial appendage after cardiac ablation procedure for atrial fibrillation Fall in home Gastric reflux Gastritis Gastrointestinal problem GERD (gastroesophageal reflux disease) GERD (gastroesophageal reflux disease) History of atrial fibrillation History of echocardiogram History of Holter monitoring History of IBS IBS (irritable bowel syndrome) Irregular heart beat Neuropathy Non-smoker Normal stress echocardiogram Osteoarthritis Osteopenia Paroxysmal atrial fibrillation Post-menopausal Pressure ulcer of sacral region, stage 4 Rheumatoid arthritis Seasonal allergies Skin necrosis Transient disorientation Vision problem Home Medications Probiotic 1 cap PO/SL DAILY digestion 04/17/22 [History Last Taken Unknown] acetaminophen 500 mg tablet 1,000 mg PO Q6H PRN Pain 04/17/22 [History Last Taken Unknown] aspirin 81 mg capsule 81 mg PO DAILY blood thinner 04/17/22 [History Last Taken Unknown] biotin 5,000 mcg disintegrating tablet 5,000 mcg PO DAILY supplement 04/17/22 [History Last Taken Unknown] calcium 600 mg capsule 600 mg PO TID supplement 04/17/22 [History Last Taken Unknown] cholecalciferol (vitamin D3) 25 mcg (1,000 unit) capsule (Vitamin D3) 50 mcg PO DAILY supplement 04/17/22 [History Last Taken Unknown] colestipol 1 gram tablet 1 g PO DAILY supplement 04/17/22 [History Last Taken Unknown] cyanocobalamin (vitamin B-12) 5,000 mcg sublingual tablet (Vitamin B-12) 5,000 mcg sublingual DAILY supplement 04/17/22 [History Last Taken Unknown] cyclobenzaprine 5 mg tablet 5 mg PO TID muscle spasms 04/17/22 [History Last Taken Unknown] esomeprazole magnesium 20 mg capsule,delayed release (Nexium) 20 mg PO DAILY reflux 04/17/22 [History Last Taken Unknown] gabapentin 100 mg capsule 100 mg PO TID pain 04/17/22 [History Last Taken 05/22/22 07:00] lactase 9,000 unit tablet 9,000 unit PO DAILY supplement 04/17/22 [History Last Taken Unknown] lidocaine 4 % topical patch (Salonpas (lidocaine)) 1 patch topical DAILY pain 04/17/22 [History Last Taken Unknown] metronidazole 0.75 % topical cream 1 applic topical DAILY topical 04/17/22 [History Last Taken Unknown] omega [id number]-[id number]-gfn-fish oil 300 mg-1,000 mg capsule (Fish Oil) 2 cap PO DAILY supplement 04/17/22 [History Last Taken Unknown] oxycodone 5 mg capsule 5 - 10 mg PO Q6H PRN Pain 04/17/22 [History Last Taken Unknown] sennosides 8.6 mg-docusate sodium 50 mg tablet (Senna with Docusate Sodium) 1 tab PO BID stool softener 04/17/22 [History Last Taken Unknown] pantoprazole 20 mg tablet,delayed release (Protonix) 20 mg PO DAILY GERD 05/22/22 [History Last Taken 05/22/22 07:00] arginine 7 gram-glutamine 7 gram-calcium HMB 1.5 gram oral powder pack (Tommy) 1 ea PO BID Wound 05/23/22 [History Last Taken Unknown] levofloxacin 500 mg tablet 500 mg PO DAILY Antibiotic 05/23/22 [History Last Taken Unknown] Allergy/AdvReac Type Severity Reaction Status Date / Time diltiazem Allergy Severe itching Verified 05/19/22 20:57 and swelling procainamide Allergy Unknown Unknown Verified 05/19/22 20:57 metronidazole [From Flagyl] Allergy Diarrhea Verified 05/19/22 20:57 Sulfa (Sulfonamide Allergy Anaphylaxis Verified 05/19/22 20:57 Antibiotics) ciprofloxacin [From Cipro] AdvReac Severe Other Verified 05/19/22 20:57 sotalol AdvReac Unknown Lethargic Verified 05/19/22 20:57 amiodarone AdvReac Other Verified 05/19/22 20:57 flecainide AdvReac Other Verified 05/19/22 20:57 levofloxacin [From Levaquin] AdvReac PT UNSURE Verified 05/19/22 20:57 OF REACTION metoprolol AdvReac Itching Verified 05/19/22 20:57 propafenone [From Rythmol] AdvReac Other Verified 05/19/22 20:57 tramadol AdvReac Vomiting Verified 05/19/22 20:57 ALMOST ALL HEART MEDS Allergy Unknown Uncoded 05/19/22 20:57 Family History Other Arthritis Breast cancer Colon cancer Depression Myocardial infarction Severe allergy Surgical History History of cardiac radiofrequency ablation Hx of colectomy Social History household members: none Smoking Status: Never smoker alcohol intake: never substance use type: does not use Physical Exam Const alert and no apparent distress Constitutional Narrative: oriented x1 Orientation / Consciousness: confused HEENT normocephalic and head/scalp atraumatic Eyes PERRL and EOMs intact bilaterally Neck supple and No nodes Resp normal air movement and clear to auscultation bilaterally Cardio regular rate and regular rhythm GI soft to palpation, non-tender and non-distended Extremity General Extremity: Negative for edema Skin Skin Narrative: reviewed photos Neuro CN's II-XII intact bilaterally Lab / Micro Data Attestation: I reviewed the patient's lab results. Result Diagrams: 05/31/22 04:59 05/31/22 04:59
--- NOTE | 2022-06-01 12:00 | PN.SURG_ITS ---
Subjective Subjective Postop #10 Patient underwent excision necrotic left sacral pressure sore, Stage IV, with partial ostectomy for osteomyelitis. Patient sitting up in chair. She is having minimal discomfort. Objective Data Objective Data Vital Signs: Vital Signs Temp Pulse Resp BP Pulse Ox O2 Del Method 97.4 F L 60 15 112/52 L 98 Room Air 06/01/22 15:07 06/01/22 15:07 06/01/22 15:07 06/01/22 15:07 06/01/22 15:07 06/01/22 15:07 Oxygen Delivery Method Room Air Weight: 119 lb 9.6 oz Body Mass Index (BMI) 23.4 Intake & Output: Intake and Output for Last 24 Hours 05/30/22 05/31/22 06/01/22 23:59 23:59 23:59 Intake Total 480 / 480 720 / 720 360 / 360 Output Total 3050 / 3050 1700 / 1700 2350 / 2350 Balance -2570 / -2570 -980 / -980 -1989 / Lab / Micro Data Result Diagrams: 05/31/22 04:59 05/31/22 04:59 Micro: Microbiology 05/22/22 09:45 Urine Catheter - Vázquez Urine Culture - Final Pseudomonas aeroginosa 05/09/22 22:32 Wound - Buttock Gram Stain - Final 05/09/22 22:32 Wound - Buttock Wound Culture - Final Escherichia coli Staphylococcus aureus 05/01/22 19:00 Urine, Clean Catch Urine Culture - Final Corynebacterium amycolatum/xer 04/24/22 13:20 Urine, Clean Catch Urine Culture - Final Corynebacterium amycolatum 04/19/22 08:50 Nasal Secretion SARS-CoV-2 Antigen (Rapid) - Final 04/19/22 07:22 Nasal Secretion SARS-CoV-2 Antigen (Rapid) - Final Physical Exam Narrative PHYSICAL EXAMINATION General - Alert and Oriented. HEENT - PERRL. EOMI.? Neck - Supple and nontender. ? Abdomen - Soft and nondistended. Wound left sacral area - wound is clean.? Some granulation tissue seen.? The per iwound maceration is starting to improve. Tolerating Dakin's dressing changes daily.? On Diflucan and nystatin. Neuro - CN II-XII grossly intact. Psych - Normal mood and affect. Assessment & Plan Assessment/Plan (1) Pressure ulcer of sacral region, stage 4: (2) Skin necrosis: (3) Transient disorientation: (4) Fall in home: PLAN: Plan Continue Dakin's dressing changes until next week.? With continued improvement in the periwound area, can apply the VAC next week. Infectious Diseases input appreciated.? Currently on Levaquin and Augmentin and Diflucan. Operative culture showed E. coli, Streptococcus sanguinis, Corynebacterium amycolatum, Prevotella oralis, and Anaerobic cocci in the soft tissue and Prevotella disiens in the bone. Pathology was positive for chronic osteomyelitis. At the time of surgery, 05/22/22, a urine culture showed Pseudomonas aeroginosa that was treated with Levaquin. Encourage nutritional supplementation with protein to help the healing process.? Prealbumin was 12.8 on 05/23/22. Discussed that it is important to eat her food and then drink the supplements. After discharge from TCU, can followup at the Wound Center. Charges/Coding Procedures Integumentary [id number]: [id number] Global Visit
--- NOTE | 2022-06-01 12:24 | NURSING ---
camron verde, DONOR SUPPORT TECHNICIAN here to see pt at this time.
[2022-06-01] MEDS: DAKIN'S SOL HALF STRENGTH (=0.25%) 1 APPLIC TOPICAL ×2 (13:53→21:50)
[2022-06-01] MEDS: Nystatin Powder 15gm Bottle 1 APPLIC TOPICAL ×2 (13:54→21:40)
[2022-06-01] MEDS: Petrolatum 33% Tube 1 APPLIC TOPICAL (13:55)
[2022-06-01] MEDS: Ketoconazole Cream 1 APPLIC TOPICAL ×2 (13:55→21:41)
[2022-06-01] MEDS: oxyCODONE 5 MG Tablet PO ×2 (14:50→21:36)
--- NOTE | 2022-06-01 14:53 | CHAPLAIN ---
Type of Pastoral Visit ___ Initial Visit _x__ Follow-up Visit ___ On-call Visit ___ General Patient Visit ___ Spiritual Assessment ___ Family Conference ___ Bereavement ___ Rapid Response ___ Code Blue ___ Other (describe below) Pastoral Care Referral From _x__ Patient ___ Family _x__ Nurse ___ Physician ___ Pencil Inspector ___ Finish Remover ___ Other (describe below) Sacrament/Intervention _x__ Active listening ___ Anointing ___ Samaritan ___ Bereavement ___ Communion _x__ Анна exploration ___ _x__ Life review _x__ Prayer ___ Reconciliation ___ Sacrament of Sick _x__ Supportive presence ___ Wedding ___ Other (describe below) Pastoral Comments patient is sitting up in chair, speaks about her [place] decorations, and smiles; gave feedback to pt on these observations; pt states that she is able to do more and feeling some better; pt expects her daughter to arrive today for a short visit; pt gives some life review including of her ; pt states that she has been doing well even after his ; pt welcomes prayer and prsence
[2022-06-01 15:07] VITALS: BP 112/52; PULSE 60; RESP 15; TEMP 36.3; O2SAT 98
--- NOTE | 2022-06-01 17:04 | NURSING ---
wound nurse changed coccyx dressing after lunch today. [facility] lather apprentice visited also.
[2022-06-01] MEDS: Hydrocortisone 2.5% Crm 1 APPLIC TOPICAL (21:46)
[2022-06-01 22:32] VITALS: PULSE 50; RESP 16; O2SAT 97
[2022-06-02] MEDS: Fluconazole 100 MG Tablet PO (05:31)
[2022-06-02] MEDS: Acetaminophen 500 MG Tablet 1000 MG PO ×2 (05:31→21:07)
[2022-06-02] MEDS: Lidocaine 5% Patch 1 PATCH TOPICAL (05:31)
[2022-06-02] MEDS: levoFLOXacin 500 MG Tablet PO (05:31)
[2022-06-02] MEDS: Ondansetron 8 MG Tablet PO ×2 (06:46→14:41)
[2022-06-02] MEDS: Gabapentin 300 MG Capsule PO ×2 (08:44→18:31)
[2022-06-02] MEDS: Calcium (Elemental) 500 MG Tablet PO ×2 (08:47→18:33)
[2022-06-02] MEDS: Amox/Clavulanate 500 MG Tablet PO ×2 (08:48→18:32)
[2022-06-02] MEDS: Cholecalciferol (VIT D3) 25 MCG TABLET (1,000 UNITS) 50 MCG PO (08:48)
[2022-06-02] MEDS: Aspirin 81 MG TAB.CHEW PO (08:48)
[2022-06-02] MEDS: Juven (unflavored) Packet 1 PACKET PO ×2 (08:49→18:29)
[2022-06-02] MEDS: Senna/Docusate Sodium 1 Tablet 2 TABLET PO ×2 (08:49→18:33)
[2022-06-02] MEDS: Polyethylene Glycol 3350 17 GM PACKET PO (08:50)
[2022-06-02 09:50] VITALS: PULSE 55; RESP 16; O2SAT 99
[2022-06-02] MEDS: Petrolatum 33% Tube 1 APPLIC TOPICAL (09:54)
[2022-06-02] MEDS: Nystatin Powder 15gm Bottle 1 APPLIC TOPICAL ×2 (09:58→21:12)
[2022-06-02] MEDS: oxyCODONE 5 MG Tablet PO ×2 (10:58→21:08)
[2022-06-02] MEDS: Ketoconazole Cream 1 APPLIC TOPICAL ×2 (11:28→21:11)
[2022-06-02] MEDS: DAKIN'S SOL HALF STRENGTH (=0.25%) 1 APPLIC TOPICAL ×2 (11:28→21:12)
[2022-06-02 12:59] VITALS: BP 102/54; PULSE 64; RESP 16; TEMP 36.2; O2SAT 98
--- NOTE | 2022-06-02 16:48 | PCM.PN.SRG ---
Subjective Subjective Postop #11 Patient underwent excision necrotic left sacral pressure sore, Stage IV, with partial ostectomy for osteomyelitis. Patient is resting comfortably. Objective Data Objective Data Vital Signs: Vital Signs Temp Pulse Resp BP Pulse Ox O2 Del Method 97.2 F L 64 16 102/54 L 98 Room Air 06/02/22 12:59 06/02/22 12:59 06/02/22 12:59 06/02/22 12:59 06/02/22 12:59 06/02/22 09:50 Oxygen Delivery Method Room Air Weight: 119 lb 9.6 oz Body Mass Index (BMI) 23.4 Intake & Output: Intake and Output for Last 24 Hours 05/31/22 06/01/22 06/02/22 23:59 23:59 23:59 Intake Total 720 / 720 600 / 600 600 / 600 Output Total 1700 / 1700 2350 / 2350 1550 / 1550 Balance -980 / -980 -1750 / -1750 -950 / -950 Lab / Micro Data Attestation: I reviewed the patient's lab results. Result Diagrams: 05/31/22 04:59 05/31/22 04:59 Micro: Microbiology 05/22/22 09:45 Urine Catheter - Vázquez Urine Culture - Final Pseudomonas aeroginosa 05/09/22 22:32 Wound - Buttock Gram Stain - Final 05/09/22 22:32 Wound - Buttock Wound Culture - Final Escherichia coli Staphylococcus aureus 05/01/22 19:00 Urine, Clean Catch Urine Culture - Final Corynebacterium amycolatum/xer 04/24/22 13:20 Urine, Clean Catch Urine Culture - Final Corynebacterium amycolatum 04/19/22 08:50 Nasal Secretion SARS-CoV-2 Antigen (Rapid) - Final 04/19/22 07:22 Nasal Secretion SARS-CoV-2 Antigen (Rapid) - Final Physical Exam Narrative PHYSICAL EXAMINATION General - Alert and Oriented. HEENT - PERRL. EOMI. Neck - Supple and nontender. Abdomen - Soft and nondistended. Wound left sacral area - wound is clean. Some granulation tissue seen. The periwound maceration is slightly better today. Tolerating Dakin's dressing changes daily. On Diflucan. Neuro - CN II-XII grossly intact. Psych - Normal mood and affect. Assessment & Plan Assessment/Plan (1) Pressure ulcer of sacral region, stage 4: (2) Skin necrosis: (3) Sacral osteomyelitis: PLAN: Plan Continue Dakin's dressing changes until next week. With continued improvement in the periwound area, can apply the VAC next week. Infectious Diseases input appreciated. Currently on Levaquin and Augmentin and Diflucan. Operative culture showed E. coli, Streptococcus sanguinis, Corynebacterium amycolatum, Prevotella oralis, and Anaerobic cocci in the soft tissue and Prevotella disiens in the bone. Pathology was positive for chronic osteomyelitis. At the time of surgery, 05/22/22, a urine culture showed Pseudomonas aeroginosa that was treated with Levaquin. Encourage nutritional supplementation with protein to help the healing process. Prealbumin was 12.8 on 05/23/22. After discharge from TCU, can followup at the Wound Center.
--- NOTE | 2022-06-03 04:37 | NURSING ---
Dressing changed to left buttock. Patient tolerated well. No odor noted. Moderate amount of serosanguinous drainage noted on old dressing. Dressing changes continue to be bid and prn. Will continue to monitor.
[2022-06-03] MEDS: Fluconazole 100 MG Tablet PO (06:43)
[2022-06-03] MEDS: Acetaminophen 500 MG Tablet 1000 MG PO ×3 (06:43→20:36)
[2022-06-03] MEDS: levoFLOXacin 500 MG Tablet PO (06:43)
[2022-06-03] MEDS: Gabapentin 300 MG Capsule PO ×3 (06:45→17:02)
[2022-06-03] MEDS: Calcium (Elemental) 500 MG Tablet PO ×3 (08:18→17:03)
[2022-06-03] MEDS: Senna/Docusate Sodium 1 Tablet 2 TABLET PO ×2 (08:19→17:03)
[2022-06-03] MEDS: Aspirin 81 MG TAB.CHEW PO (08:19)
[2022-06-03] MEDS: Juven (unflavored) Packet 1 PACKET PO ×2 (08:19→17:02)
[2022-06-03] MEDS: Amox/Clavulanate 500 MG Tablet PO ×2 (08:20→17:02)
[2022-06-03] MEDS: Cholecalciferol (VIT D3) 25 MCG TABLET (1,000 UNITS) 50 MCG PO (08:20)
[2022-06-03] MEDS: Lidocaine 5% Patch 1 PATCH TOPICAL (08:31)
[2022-06-03] MEDS: Pantoprazole Sodium 20 MG Tablet PO (10:14)
[2022-06-03] MEDS: Nystatin Powder 15gm Bottle 1 APPLIC TOPICAL ×2 (10:17→21:05)
[2022-06-03] MEDS: Ketoconazole Cream 1 APPLIC TOPICAL ×2 (10:18→21:06)
[2022-06-03] MEDS: DAKIN'S SOL HALF STRENGTH (=0.25%) 1 APPLIC TOPICAL ×2 (10:18→20:50)
[2022-06-03] MEDS: Petrolatum 33% Tube 1 APPLIC TOPICAL (10:19)
[2022-06-03 12:11] VITALS: BP 94/49; PULSE 50; RESP 12; TEMP 36.2; O2SAT 97
[2022-06-03] MEDS: oxyCODONE 5 MG Tablet PO (20:37)
[2022-06-03] MEDS: Sodium Chloride 0.65% 1 SPRAY SPRAY.BTL NASAL (21:11)
[2022-06-03 21:33] VITALS: PULSE 52; RESP 16; O2SAT 98
[2022-06-04] MEDS: Fluconazole 100 MG Tablet PO (05:13)
[2022-06-04] MEDS: levoFLOXacin 500 MG Tablet PO (05:13)
[2022-06-04] MEDS: Acetaminophen 500 MG Tablet 1000 MG PO ×3 (05:13→22:27)
[2022-06-04] MEDS: Lidocaine 5% Patch 1 PATCH TOPICAL (05:14)
--- NOTE | 2022-06-04 05:25 | NURSING ---
Patient c/o pressure/pain in lower abdomen. Vázquez catheter in place, draining. No urine appears to be coming out around catheter. Readjusted catheter and depend. Will continue to monitor.
[2022-06-04] MEDS: Aspirin 81 MG TAB.CHEW PO (08:32)
[2022-06-04] MEDS: Calcium (Elemental) 500 MG Tablet PO ×3 (08:32→17:25)
[2022-06-04] MEDS: Amox/Clavulanate 500 MG Tablet PO ×2 (08:32→17:25)
[2022-06-04] MEDS: Senna/Docusate Sodium 1 Tablet 2 TABLET PO (08:32)
[2022-06-04] MEDS: Cholecalciferol (VIT D3) 25 MCG TABLET (1,000 UNITS) 50 MCG PO (08:33)
[2022-06-04] MEDS: Juven (unflavored) Packet 1 PACKET PO ×2 (08:33→17:26)
[2022-06-04] MEDS: Gabapentin 300 MG Capsule PO ×3 (08:53→17:25)
[2022-06-04 08:56] VITALS: PULSE 50; RESP 16; O2SAT 98
[2022-06-04] MEDS: DAKIN'S SOL HALF STRENGTH (=0.25%) 1 APPLIC TOPICAL ×2 (12:59→22:27)
[2022-06-04] MEDS: Petrolatum 33% Tube 1 APPLIC TOPICAL (12:59)
[2022-06-04] MEDS: Ketoconazole Cream 1 APPLIC TOPICAL ×2 (13:00→22:26)
[2022-06-04] MEDS: Nystatin Powder 15gm Bottle 1 APPLIC TOPICAL ×2 (13:00→22:26)
[2022-06-04 14:00] VITALS: BP 98/39; PULSE 47; RESP 16; TEMP 36.9; O2SAT 98
[2022-06-04] MEDS: oxyCODONE 5 MG Tablet PO (20:01)
[2022-06-05] MEDS: Lidocaine 5% Patch 1 PATCH TOPICAL (06:39)
[2022-06-05] MEDS: Ondansetron 8 MG Tablet PO (06:41)
[2022-06-05] MEDS: Acetaminophen 500 MG Tablet 1000 MG PO ×3 (06:41→20:06)
--- NOTE | 2022-06-05 06:43 | NURSING ---
Diflucan and Levaquin held at this time d/t GI upset. Zofran 8 mg administered. Also c/o HOWE and neck pain. Scheduled Tylenol administered. Will continue to monitor.
[2022-06-05] MEDS: Calcium (Elemental) 500 MG Tablet PO ×3 (08:18→17:24)
[2022-06-05] MEDS: Pantoprazole Sodium 20 MG Tablet PO (08:20)
[2022-06-05] MEDS: Aspirin 81 MG TAB.CHEW PO (08:20)
[2022-06-05] MEDS: levoFLOXacin 500 MG Tablet PO (08:20)
[2022-06-05] MEDS: Juven (unflavored) Packet 1 PACKET PO ×2 (08:21→17:45)
[2022-06-05] MEDS: Fluconazole 100 MG Tablet PO (08:21)
[2022-06-05] MEDS: Amox/Clavulanate 500 MG Tablet PO ×2 (08:21→17:25)
[2022-06-05] MEDS: Nystatin Powder 15gm Bottle 1 APPLIC TOPICAL ×2 (08:23→20:06)
[2022-06-05] MEDS: Ketoconazole Cream 1 APPLIC TOPICAL ×2 (08:24→22:11)
[2022-06-05] MEDS: Petrolatum 33% Tube 1 APPLIC TOPICAL (08:24)
[2022-06-05] MEDS: DAKIN'S SOL HALF STRENGTH (=0.25%) 1 APPLIC TOPICAL ×2 (08:26→22:12)
[2022-06-05] MEDS: Senna/Docusate Sodium 1 Tablet 2 TABLET PO ×2 (08:29→17:31)
[2022-06-05] MEDS: Gabapentin 300 MG Capsule PO ×3 (08:29→17:24)
[2022-06-05] MEDS: Cholecalciferol (VIT D3) 25 MCG TABLET (1,000 UNITS) 50 MCG PO (09:58)
[2022-06-05 14:01] VITALS: BP 111/56; PULSE 52; RESP 20; TEMP 36.5; O2SAT 97
--- NOTE | 2022-06-05 17:58 | PCM.PN.SRG ---
Subjective Subjective Postop #14 Patient underwent excision necrotic left sacral pressure sore, Stage IV, with partial ostectomy for osteomyelitis. Patient is resting comfortably. Objective Data Objective Data Vital Signs: Vital Signs Temp Pulse Resp BP Pulse Ox O2 Del Method 97.7 F L 52 L 20 H 111/56 L 97 Room Air 06/05/22 14:01 06/05/22 14:01 06/05/22 14:01 06/05/22 14:01 06/05/22 14:01 06/05/22 14:01 Oxygen Delivery Method Room Air Weight: 119 lb 9.6 oz Body Mass Index (BMI) 23.4 Intake & Output: Intake and Output for Last 24 Hours 06/03/22 06/04/22 06/05/22 23:59 23:59 23:59 Intake Total 360 / 360 600 / 600 340 / 340 Output Total 2550 / 2550 2950 / 2950 2500 / 2500 Balance -2190 / -2190 -2350 / -2350 -2160 / -2160 Lab / Micro Data Attestation: I reviewed the patient's lab results. Result Diagrams: 05/31/22 04:59 05/31/22 04:59 Micro: Microbiology 05/22/22 09:45 Urine Catheter - Vázquez Urine Culture - Final Pseudomonas aeroginosa 05/09/22 22:32 Wound - Buttock Gram Stain - Final 05/09/22 22:32 Wound - Buttock Wound Culture - Final Escherichia coli Staphylococcus aureus 05/01/22 19:00 Urine, Clean Catch Urine Culture - Final Corynebacterium amycolatum/xer 04/24/22 13:20 Urine, Clean Catch Urine Culture - Final Corynebacterium amycolatum 04/19/22 08:50 Nasal Secretion SARS-CoV-2 Antigen (Rapid) - Final 04/19/22 07:22 Nasal Secretion SARS-CoV-2 Antigen (Rapid) - Final Physical Exam Narrative PHYSICAL EXAMINATION General - Alert and Oriented. HEENT - PERRL. EOMI. Neck - Supple and nontender. Abdomen - Soft and nondistended. Wound left sacral area - wound is clean. Some granulation tissue seen. The periwound maceration is slightly better today. Tolerating Dakin's dressing changes daily. On Diflucan. Neuro - CN II-XII grossly intact. Psych - Normal mood and affect. Assessment & Plan Assessment/Plan (1) Pressure ulcer of sacral region, stage 4: (2) Skin necrosis: (3) Sacral osteomyelitis: PLAN: Plan Continue Dakin's dressing changes. The periwound area continues to improve. Will apply the VAC tomorrow. Operative culture showed E. coli, Streptococcus sanguinis, Corynebacterium amycolatum, Prevotella oralis, and Anaerobic cocci in the soft tissue and Prevotella disiens in the bone. Pathology was positive for chronic osteomyelitis. Continue Levaquin, Augmentin, and Diflucan. At the time of surgery, 05/22/22, a urine culture showed Pseudomonas aeroginosa that was treated with Levaquin. Encourage nutritional supplementation with protein to help the healing process. Prealbumin was 12.8 on 05/23/22. After discharge from TCU, can followup at the [facility].
[2022-06-05] MEDS: oxyCODONE 5 MG Tablet PO (20:07)
[2022-06-05 21:00] VITALS: PULSE 61; RESP 16; O2SAT 98
[2022-06-06] MEDS: Fluconazole 100 MG Tablet PO (05:54)
[2022-06-06] MEDS: levoFLOXacin 500 MG Tablet PO (05:54)
[2022-06-06] MEDS: Acetaminophen 500 MG Tablet 1000 MG PO ×3 (05:58→21:00)
[2022-06-06] MEDS: Aspirin 81 MG TAB.CHEW PO (08:32)
[2022-06-06] MEDS: Juven (unflavored) Packet 1 PACKET PO ×2 (08:32→17:47)
[2022-06-06] MEDS: Gabapentin 300 MG Capsule PO ×3 (08:32→17:47)
[2022-06-06] MEDS: Amox/Clavulanate 500 MG Tablet PO ×2 (08:32→17:47)
[2022-06-06] MEDS: Calcium (Elemental) 500 MG Tablet PO ×3 (08:32→17:48)
[2022-06-06] MEDS: Senna/Docusate Sodium 1 Tablet 2 TABLET PO ×2 (08:35→17:48)
[2022-06-06] MEDS: Cholecalciferol (VIT D3) 25 MCG TABLET (1,000 UNITS) 50 MCG PO (09:18)
[2022-06-06] MEDS: Nystatin Powder 15gm Bottle 1 APPLIC TOPICAL ×2 (09:24→21:01)
[2022-06-06] MEDS: Petrolatum 33% Tube 1 APPLIC TOPICAL (09:24)
[2022-06-06 14:06] VITALS: BP 112/38; PULSE 57; RESP 16; TEMP 36.6; O2SAT 98
--- NOTE | 2022-06-06 14:18 | WOUNDNOTE ---
wound photo: sacrum
--- NOTE | 2022-06-06 15:12 | NURSING ---
Pt C/O of muscle soreness and cramping feels it is from either the Levaquin or Augmentin. Dr. Craven updated and N.O. to hold morning dose of Levaquin and Augmentin and will be in to see her tomorrow.
[2022-06-06] MEDS: oxyCODONE 5 MG Tablet PO (21:03)
[2022-06-07 06:00] VITALS: BP 113/50; PULSE 42; RESP 16; TEMP 36.4; O2SAT 97
[2022-06-07 06:07] LABS: Absolute Lymphocyte Count 2.73 X10^3/uL (0.83-4.51); Basophil# 0.07 X10^3/uL; Eosinophils% 4.4 % (0-5); Hematocrit 33.2 % (37-47); Hemoglobin 10.4 g/dL (12.0-15.0); Lymphocyte # 2.73 X10^3/ul (0.83-4.51); Lymphocyte % 40.4 % (19-41); Mean Corp Hgb Conc 31.3 g/dL (32-36); Mean Corpuscular Hgb 29.3 pg (27.0-32.0); Mean Corpuscular Volume 93.5 fL (81-99); Monocyte# 0.66 X10^3/uL; Monocyte% 9.8 % (0-10); NRBC Flagged by Analyzer 0 % (0-5); Neutrophil # 2.96 X10^3/uL (2.7-7.7); Platelet Count 366 K/mm3 (150-450); RBC Distribution Width CV 14.8 % (11.6-14.6); RBC Distribution Width SD 51.5 fl (35.1-43.9); Red Blood Count 3.55 M/mm3 (4.2-5.4); White Blood Count 6.8 K/mm3 (4.4-11.0)
[2022-06-07] MEDS: Acetaminophen 500 MG Tablet 1000 MG PO ×3 (06:18→21:21)
[2022-06-07 06:28] LABS: Anion Gap 5 (5-15); BUN 23 mg/dL (7-18); BUN/Creat Ratio 56.8 RATIO (10-20); Calcium,Total 9.3 mg/dL (8.5-10.1); Chloride 104 mmol/L (98-107); EST Glomerular Filtration Rate 164 mL/min (>60); Est Glom Filt Rate - Afr Amer 198 mL/min (>60); Estimated Creatinine Clearance 42.87 ml/min; Glucose 98 mg/dL (74-106); Potassium 4.1 mmol/L (3.5-5.1); Sodium Level 137 mmol/L (136-145)
[2022-06-07] MEDS: Aspirin 81 MG TAB.CHEW PO (08:57)
[2022-06-07] MEDS: Gabapentin 300 MG Capsule PO ×3 (08:57→18:04)
[2022-06-07] MEDS: Juven (unflavored) Packet 1 PACKET PO ×2 (08:57→18:04)
[2022-06-07] MEDS: Amox/Clavulanate 500 MG Tablet PO ×2 (08:57→18:06)
[2022-06-07] MEDS: Cholecalciferol (VIT D3) 25 MCG TABLET (1,000 UNITS) 50 MCG PO (08:57)
[2022-06-07] MEDS: Petrolatum 33% Tube 1 APPLIC TOPICAL (08:58)
[2022-06-07] MEDS: Senna/Docusate Sodium 1 Tablet 2 TABLET PO (08:58)
[2022-06-07] MEDS: Calcium (Elemental) 500 MG Tablet PO ×3 (08:58→18:07)
[2022-06-07] MEDS: Pantoprazole Sodium 20 MG Tablet PO (08:59)
[2022-06-07] MEDS: FLUCONAZOLE 150 MG TABLET PO (08:59)
[2022-06-07] MEDS: Nystatin Powder 15gm Bottle 1 APPLIC TOPICAL ×2 (13:34→21:25)
--- NOTE | 2022-06-07 14:45 | PCM.PN.ID ---
Physical Exam Narrative Some muscle cramps and nausea. No fever. Const alert and no apparent distress General Appearance: cooperative Resp normal air movement and clear to auscultation bilaterally Cardio regular rate and regular rhythm GI soft to palpation, non-tender and non-distended Skin Skin Narrative: no new rash ID ID: Route of nutrition/ use of supplements: [] Nutritional Intake: [] IV Site: [] Vázquez Catheter: [] Assessment & Plan Assessment/Plan (1) Sacral osteomyelitis: PLAN: OR with Dr. Lee 05/22/22 for I&D. Surg cx with ecoli, strep, corynebacteria, anaerobes. Bone cx with prevotella. Prior wound cx also with MSSA. On po levaquin/augmentin, plan is to treat for 6 weeks total. Last QTC was 460. With nausea and muscle aches, will change levaquin to doxy, cont augmentin. Will follow
[2022-06-07 14:50] VITALS: BP 106/46; PULSE 53; RESP 20; TEMP 36.6; O2SAT 98
[2022-06-07] MEDS: Doxycycline 100 MG CAPSULE PO (21:21)
[2022-06-07] MEDS: oxyCODONE 5 MG Tablet PO (21:22)
[2022-06-07 22:00] VITALS: PULSE 52; RESP 16; O2SAT 97
[2022-06-08] MEDS: Doxycycline 100 MG CAPSULE PO ×2 (06:22→17:45)
[2022-06-08] MEDS: Acetaminophen 500 MG Tablet 1000 MG PO ×3 (06:22→22:11)
[2022-06-08] MEDS: Ondansetron 8 MG Tablet PO (08:00)
[2022-06-08] MEDS: Cholecalciferol (VIT D3) 25 MCG TABLET (1,000 UNITS) 50 MCG PO (09:22)
[2022-06-08] MEDS: Amox/Clavulanate 500 MG Tablet PO ×2 (09:22→17:45)
[2022-06-08] MEDS: Juven (unflavored) Packet 1 PACKET PO ×2 (09:22→17:44)
[2022-06-08] MEDS: Gabapentin 300 MG Capsule PO ×3 (09:22→17:44)
[2022-06-08] MEDS: Calcium (Elemental) 500 MG Tablet PO ×3 (09:23→17:45)
[2022-06-08] MEDS: Aspirin 81 MG TAB.CHEW PO (09:23)
[2022-06-08] MEDS: Senna/Docusate Sodium 1 Tablet 2 TABLET PO ×2 (09:23→17:45)
[2022-06-08] MEDS: Petrolatum 33% Tube 1 APPLIC TOPICAL (09:25)
[2022-06-08] MEDS: Nystatin Powder 15gm Bottle 1 APPLIC TOPICAL ×2 (09:26→22:12)
[2022-06-08 12:10] VITALS: PULSE 54; RESP 16; O2SAT 96
--- NOTE | 2022-06-08 14:01 | NURSING ---
wound nurse here & changed wound vac
[2022-06-08 14:38] VITALS: BP 97/46; PULSE 55; RESP 16; TEMP 36.8; O2SAT 98
[2022-06-08] MEDS: oxyCODONE 5 MG Tablet PO (22:11)
[2022-06-09 06:00] VITALS: BP 109/49; PULSE 42; RESP 17; TEMP 36.7; O2SAT 97
[2022-06-09] MEDS: Acetaminophen 500 MG Tablet 1000 MG PO ×3 (06:50→21:29)
[2022-06-09] MEDS: Doxycycline 100 MG CAPSULE PO ×2 (06:51→18:02)
[2022-06-09] MEDS: Ondansetron 8 MG Tablet PO (08:17)
[2022-06-09] MEDS: Amox/Clavulanate 500 MG Tablet PO ×2 (08:32→18:01)
[2022-06-09] MEDS: Cholecalciferol (VIT D3) 25 MCG TABLET (1,000 UNITS) 50 MCG PO (08:32)
[2022-06-09] MEDS: Aspirin 81 MG TAB.CHEW PO (08:32)
[2022-06-09] MEDS: Calcium (Elemental) 500 MG Tablet PO ×3 (08:32→18:02)
[2022-06-09] MEDS: Juven (unflavored) Packet 1 PACKET PO ×2 (08:32→18:01)
[2022-06-09] MEDS: Senna/Docusate Sodium 1 Tablet 2 TABLET PO ×2 (08:32→18:01)
[2022-06-09] MEDS: Gabapentin 300 MG Capsule PO ×3 (09:16→18:02)
[2022-06-09] MEDS: Pantoprazole Sodium 20 MG Tablet PO (09:53)
[2022-06-09] MEDS: Petrolatum 33% Tube 1 APPLIC TOPICAL (09:53)
[2022-06-09] MEDS: Hydrocortisone 2.5% Crm 1 APPLIC TOPICAL (09:54)
[2022-06-09 10:00] VITALS: PULSE 51; O2SAT 97
[2022-06-09 14:29] VITALS: BP 112/59; PULSE 56; RESP 16; TEMP 36.7; O2SAT 97
[2022-06-09] MEDS: oxyCODONE 5 MG Tablet PO (21:41)
[2022-06-09] MEDS: Nystatin Powder 15gm Bottle 1 APPLIC TOPICAL (21:42)
[2022-06-10] MEDS: Acetaminophen 500 MG Tablet 1000 MG PO ×3 (05:29→21:05)
[2022-06-10] MEDS: Doxycycline 100 MG CAPSULE PO ×2 (05:30→18:51)
[2022-06-10] MEDS: Amox/Clavulanate 500 MG Tablet PO ×2 (07:58→18:50)
[2022-06-10] MEDS: Senna/Docusate Sodium 1 Tablet 2 TABLET PO ×2 (07:58→18:52)
[2022-06-10] MEDS: Cholecalciferol (VIT D3) 25 MCG TABLET (1,000 UNITS) 50 MCG PO (07:58)
[2022-06-10] MEDS: Aspirin 81 MG TAB.CHEW PO (07:58)
[2022-06-10] MEDS: Juven (unflavored) Packet 1 PACKET PO ×2 (07:58→18:51)
[2022-06-10] MEDS: Gabapentin 300 MG Capsule PO ×3 (07:59→18:51)
[2022-06-10] MEDS: Calcium (Elemental) 500 MG Tablet PO ×3 (07:59→18:51)
[2022-06-10] MEDS: Nystatin Powder 15gm Bottle 1 APPLIC TOPICAL ×2 (08:00→21:11)
[2022-06-10] MEDS: Petrolatum 33% Tube 1 APPLIC TOPICAL (08:01)
[2022-06-10 11:40] VITALS: PULSE 52; RESP 18
[2022-06-10 14:40] VITALS: BP 110/53; PULSE 57; RESP 16; TEMP 36.8; O2SAT 96
[2022-06-10] MEDS: oxyCODONE 5 MG Tablet PO (21:07)
[2022-06-11] MEDS: Doxycycline 100 MG CAPSULE PO ×2 (05:55→18:21)
[2022-06-11] MEDS: Acetaminophen 500 MG Tablet 1000 MG PO ×3 (05:55→21:03)
[2022-06-11] MEDS: Ondansetron 8 MG Tablet PO (06:36)
[2022-06-11] MEDS: Calcium (Elemental) 500 MG Tablet PO ×3 (08:41→18:21)
[2022-06-11] MEDS: Gabapentin 300 MG Capsule PO ×3 (08:41→18:21)
[2022-06-11] MEDS: Cholecalciferol (VIT D3) 25 MCG TABLET (1,000 UNITS) 50 MCG PO (08:41)
[2022-06-11] MEDS: Aspirin 81 MG TAB.CHEW PO (08:41)
[2022-06-11] MEDS: Senna/Docusate Sodium 1 Tablet 2 TABLET PO ×2 (08:41→18:20)
[2022-06-11] MEDS: Juven (unflavored) Packet 1 PACKET PO ×2 (08:41→18:20)
[2022-06-11] MEDS: Amox/Clavulanate 500 MG Tablet PO ×2 (08:41→18:20)
[2022-06-11] MEDS: Nystatin Powder 15gm Bottle 1 APPLIC TOPICAL ×2 (10:48→21:02)
[2022-06-11] MEDS: Petrolatum 33% Tube 1 APPLIC TOPICAL (10:49)
[2022-06-11] MEDS: Pantoprazole Sodium 20 MG Tablet PO (10:59)
[2022-06-11 16:00] VITALS: BP 106/46; PULSE 53; RESP 16; TEMP 37.1; O2SAT 97
[2022-06-11] MEDS: oxyCODONE 5 MG Tablet PO (21:06)
[2022-06-11 21:37] VITALS: PULSE 57; RESP 16; O2SAT 98
[2022-06-12] MEDS: Acetaminophen 500 MG Tablet 1000 MG PO ×3 (04:55→21:02)
--- NOTE | 2022-06-12 06:33 | NURSING ---
pt refused to take Doxy at 6A, states she will try it at 8A and see if she gets nauseous or not.
[2022-06-12] MEDS: Amox/Clavulanate 500 MG Tablet PO ×2 (08:24→18:11)
[2022-06-12] MEDS: Senna/Docusate Sodium 1 Tablet 2 TABLET PO ×2 (08:24→18:11)
[2022-06-12] MEDS: Gabapentin 300 MG Capsule PO ×3 (08:24→18:11)
[2022-06-12] MEDS: Calcium (Elemental) 500 MG Tablet PO ×3 (08:24→18:11)
[2022-06-12] MEDS: Doxycycline 100 MG CAPSULE PO ×2 (08:24→16:52)
[2022-06-12] MEDS: Cholecalciferol (VIT D3) 25 MCG TABLET (1,000 UNITS) 50 MCG PO (08:24)
[2022-06-12] MEDS: Juven (unflavored) Packet 1 PACKET PO ×2 (08:24→18:12)
[2022-06-12] MEDS: Aspirin 81 MG TAB.CHEW PO (08:24)
[2022-06-12] MEDS: Petrolatum 33% Tube 1 APPLIC TOPICAL (11:26)
[2022-06-12 14:47] VITALS: BP 96/47; PULSE 63; RESP 14; TEMP 36.8; O2SAT 97
[2022-06-12] MEDS: oxyCODONE 5 MG Tablet PO (21:02)
[2022-06-12] MEDS: Nystatin Powder 15gm Bottle 1 APPLIC TOPICAL (21:07)
[2022-06-13] MEDS: Acetaminophen 500 MG Tablet 1000 MG PO ×3 (06:36→21:06)
[2022-06-13] MEDS: Doxycycline 100 MG CAPSULE PO ×2 (06:36→18:03)
[2022-06-13] MEDS: Amox/Clavulanate 500 MG Tablet PO ×2 (08:45→18:04)
[2022-06-13] MEDS: Gabapentin 300 MG Capsule PO ×3 (08:45→18:03)
[2022-06-13] MEDS: Juven (unflavored) Packet 1 PACKET PO ×2 (08:45→18:04)
[2022-06-13] MEDS: Senna/Docusate Sodium 1 Tablet 2 TABLET PO ×2 (08:45→18:04)
[2022-06-13] MEDS: Calcium (Elemental) 500 MG Tablet PO ×3 (08:45→18:03)
[2022-06-13] MEDS: Cholecalciferol (VIT D3) 25 MCG TABLET (1,000 UNITS) 50 MCG PO (08:45)
[2022-06-13] MEDS: Aspirin 81 MG TAB.CHEW PO (08:45)
[2022-06-13] MEDS: Petrolatum 33% Tube 1 APPLIC TOPICAL (11:05)
[2022-06-13] MEDS: Pantoprazole Sodium 20 MG Tablet PO (11:05)
[2022-06-13] MEDS: Nystatin Powder 15gm Bottle 1 APPLIC TOPICAL ×2 (11:05→21:05)
--- NOTE | 2022-06-13 13:48 | WOUNDNOTE ---
wound photo: sacrum
[2022-06-13 14:38] VITALS: BP 108/45; PULSE 61; RESP 16; TEMP 37.1; O2SAT 98
--- NOTE | 2022-06-13 16:44 | CASEMGMT ---
Social Work Spoke with pt to follow up on DC plans. Pt is progressing well in therapy, would be mod I but has wound vac. Pt decreasing to 3x/wk of therapy. Pt has wound vac with can be changed 3x/wk. Pt unsure about DC plans whether that be home alone or to dtr's house. Dtr plans to visit tonight and pt to discuss with dtr and notify this worker. Will continue to follow. Cass Hodges, ONLINE JOURNALIST BUTTON SEWER
[2022-06-13 21:00] VITALS: PULSE 62; RESP 16; O2SAT 98
[2022-06-13] MEDS: oxyCODONE 5 MG Tablet PO (21:07)
[2022-06-14 05:53] LABS: Absolute Lymphocyte Count 2.36 X10^3/uL (0.83-4.51); Absolute Neutrophil Count 3.6 X10^3/uL (2.0-7.7); Basophil# 0.07 X10^3/uL; Eosinophil# 0.33 X10^3/uL; Eosinophils% 4.7 % (0-5); Hematocrit 35.1 % (37-47); Hemoglobin 10.9 g/dL (12.0-15.0); Lymphocyte # 2.36 X10^3/ul (0.83-4.51); Lymphocyte % 33.3 % (19-41); Mean Corp Hgb Conc 31.1 g/dL (32-36); Mean Corpuscular Hgb 28.8 pg (27.0-32.0); Mean Corpuscular Volume 92.9 fL (81-99); Mean Platelet Vol. 9.4 fl (6.2-12.0); Monocyte# 0.66 X10^3/uL; Monocyte% 9.3 % (0-10); NRBC Flagged by Analyzer 0 % (0-5); Neutrophil # 3.64 X10^3/uL (2.7-7.7); Neutrophil % 51.3 % (47-70); Platelet Count 321 K/mm3 (150-450); RBC Distribution Width CV 14.8 % (11.6-14.6); RBC Distribution Width SD 51.2 fl (35.1-43.9); Red Blood Count 3.78 M/mm3 (4.2-5.4); White Blood Count 7.1 K/mm3 (4.4-11.0)
[2022-06-14 06:24] LABS: Anion Gap 5 (5-15); BUN 26 mg/dL (7-18); BUN/Creat Ratio 58.2 RATIO (10-20); Calcium,Total 9.2 mg/dL (8.5-10.1); Chloride 106 mmol/L (98-107); Creatinine, Serum 0.45 mg/dL (0.55-1.02); EST Glomerular Filtration Rate 146 mL/min (>60); Est Glom Filt Rate - Afr Amer 177 mL/min (>60); Estimated Creatinine Clearance 44.09 ml/min; Glucose 102 mg/dL (74-106); Potassium 4.3 mmol/L (3.5-5.1); Sodium Level 139 mmol/L (136-145)
[2022-06-14] MEDS: Doxycycline 100 MG CAPSULE PO ×2 (06:54→17:34)
[2022-06-14] MEDS: Acetaminophen 500 MG Tablet 1000 MG PO ×3 (06:54→21:07)
[2022-06-14] MEDS: Hydrocortisone 2.5% Crm 1 APPLIC TOPICAL (06:55)
--- NOTE | 2022-06-14 08:03 | PN.TCU_ITS ---
Subjective Subjective Resident seen, examined for regulatory visit. 06/01/2022, Dr. Lee debrided stage 4 left sacral pressure ulcer. Biopsy results show chronic osteomyelitis. Dr. Craven consulted, antibiotics, antifungals ordered. Objective Data Objective Data Vital Signs: Vital Signs Temp Pulse Resp BP Pulse Ox O2 Del Method 98.8 F 62 16 108/45 L 98 Room Air 06/13/22 14:38 06/13/22 21:00 06/13/22 21:00 06/13/22 14:38 06/13/22 21:00 06/13/22 21:00 Oxygen Delivery Method Room Air Weight: 55.747 kg Body Mass Index (BMI) 23.4 Intake & Output: Intake and Output for Last 24 Hours 06/12/22 06/13/22 06/14/22 23:59 23:59 23:59 Intake Total 720 / 720 480 / 480 Output Total 1400 / 1400 2150 / 2150 1250 / 1250 Balance -680 / -680 -1670 / -1670 -1250 / -1250 Lab / Micro Data Result Diagrams: 06/14/22 05:24 06/14/22 04:17 Labs: Laboratory Results - last 24 hr 06/14/22 04:17: Sodium 139, Potassium 4.3, Chloride 106, Carbon Dioxide 28.0, Anion Gap 5, BUN 26 H, Creatinine 0.45 L, Estim Creat Clear Calc 44.09, Est GFR (MDRD) Af Amer 177, Est GFR (MDRD) Non-Af 146, BUN/Creatinine Ratio 58.2 H, Glucose 102, Calcium 9.2 06/14/22 05:24: WBC 7.1, RBC 3.78 L, Hgb 10.9 L, Hct 35.1 L, MCV 92.9, MCH 28.8, MCHC 31.1 L, RDW Std Deviation 51.2 H, RDW Coeff of Tammy 14.8 H, Plt Count 321, MPV 9.4, Immature Gran % (Auto) 0.400, Neut % (Auto) 51.3, Lymph % (Auto) 33.3, Mineral % (Auto) 9.3, Eos % (Auto) 4.7, Baso % (Auto) 1.0, Absolute Neuts (auto) 3.6, Absolute Lymphs (auto) 2.36, Nucleated RBC % 0 Micro: Microbiology 12/12/22 09:45 Urine Catheter - Vázquez Urine Culture - Final Pseudomonas aeroginosa 05/09/22 22:32 Wound - Buttock Gram Stain - Final 05/09/22 22:32 Wound - Buttock Wound Culture - Final Escherichia coli Staphylococcus aureus 05/01/22 19:00 Urine, Clean Catch Urine Culture - Final Corynebacterium amycolatum/xer 04/24/22 13:20 Urine, Clean Catch Urine Culture - Final Corynebacterium amycolatum 04/19/22 08:50 Nasal Secretion SARS-CoV-2 Antigen (Rapid) - Final 04/19/22 07:22 Nasal Secretion SARS-CoV-2 Antigen (Rapid) - Final Physical Exam Const alert General Appearance: cooperative HEENT normocephalic Eyes PERRL and EOMs intact bilaterally Neck supple, no JVD and no carotid bruits Resp normal respiratory effort, normal air movement and clear to auscultation bilaterally Cardio regular rate and regular rhythm GI normal to inspection, nondistended, normoactive bowel sounds, non-tender and non-distended Extremity normal capillary refill Extremity Narrative: Left lower extremity splint. General Extremity: Negative for edema Skin no rashes or lesions noted Skin Narrative: Left sacral wound VAC. General Skin Exam: no breakdown Wound Narrative: Left buttock wound per wound nurse. Psych affect normal Appearance: appropriate Assessment & Plan Assessment/Plan (1) Pressure ulcer of sacral region, stage 4: (2) Skin necrosis: (3) Transient disorientation: (4) Fall in home: PLAN: Plan 72 year old female with below past medical history suffered fall from second story, hospitalized for multi trauma, underwent left tibia intramedullary nail fixation, right hip anterograde intramedullary nail, complicated by encephalop athy from urinary tract infection, stage 4 left sacral pressure ulcer with chronic osteomyelitis, admitted to TCU with debility, here for rehabilitation, strengthening, prior to discharge home alone. * Debility - PT/OT. * Pain - Tylenol 1000mg q8, Oxycodone 5-10mg q6h prn pain (1-5, 6-10). * Bowel - Miralax 17gm daily, Senna/colace 2 tablet bid, Lactulose 20gm bid prn, Dulcolax 10mg pr daily prn. * Adult immunization - Administer pneumonia vaccine, covid19 vaccine, flu vaccine as appropriate. * DVT prophylaxis - Hold. * CV prophylaxis - Aspirin 81mg daily. * Calcium deficiency - Calcium 500mg tidcm. * Neuropathic pain - Gabapentin 300mg tid. * Lactose intolerance - Lactase 9,000 units daily. * GI prophylaxis - Lactobacillus 1 tablet daily. * GERD - Pantoprazole 20mg q48h. * Vitamin D deficiency - D3 50mcg daily. * Anxiety - Xanax 0.5mg tid prm. * Right lower lobe lung mass - PET/CT and/or biopsy as outpatient. * Stage 4 left sacral pressure ulcer s/p debridement - Dr. Lee, Wound VAC, Augmentin 500mg bid thru 07/12/2022, Doxycycline 100mg bid, Fluconazole 150mg qweek thru 06/24/2022. * Nutrition - Tommy 1 packet bidcm. * Skin irritation - Calmoseptine topical tid, Petroleum topical daily. * Tinea Corporis - Nystatin powder topical bid, Ketoconazole cream topical bid. * Nausea - Zofran 8mg q8h prn. * Dry Nares - Sodium chloride 1 spray nasal bid prn. Capacity Capacity Assessment Tool Can the patient make a choice & communicate that choice?: Yes Can the patient understand benefits, risks and alternatives?: Yes Can the patient make a logical, rational choice?: Yes Is the choice the patient makes consistent w/ their values?: Yes Is there an impending, emergent risk to the patient?: Yes Does the patient have an Advance Directive?: No Is there a Surrogate Available?: No i.e. HCPOA: Yes i.e. close relative (spouse, child, parent, sibling)?: Yes
[2022-06-14] MEDS: Aspirin 81 MG TAB.CHEW PO (08:59)
[2022-06-14] MEDS: Juven (unflavored) Packet 1 PACKET PO ×2 (08:59→17:35)
[2022-06-14] MEDS: Calcium (Elemental) 500 MG Tablet PO ×3 (08:59→17:34)
[2022-06-14] MEDS: Cholecalciferol (VIT D3) 25 MCG TABLET (1,000 UNITS) 50 MCG PO (08:59)
[2022-06-14] MEDS: Gabapentin 300 MG Capsule PO ×3 (08:59→17:34)
[2022-06-14] MEDS: Senna/Docusate Sodium 1 Tablet 2 TABLET PO (08:59)
[2022-06-14] MEDS: Amox/Clavulanate 500 MG Tablet PO ×2 (08:59→17:34)
[2022-06-14] MEDS: FLUCONAZOLE 150 MG TABLET PO (09:01)
[2022-06-14] MEDS: Petrolatum 33% Tube 1 APPLIC TOPICAL (09:03)
[2022-06-14] MEDS: Nystatin Powder 15gm Bottle 1 APPLIC TOPICAL ×2 (09:04→21:09)
[2022-06-14 09:08] VITALS: PULSE 58; RESP 16; O2SAT 97
[2022-06-14 15:03] VITALS: BP 100/47; PULSE 61; RESP 18; TEMP 36.6; O2SAT 98
[2022-06-14] MEDS: oxyCODONE 5 MG Tablet PO (21:06)
--- NOTE | 2022-06-14 22:00 | NURSING ---
Reported by [employer] BOOKKEEPER that patient had red areas on left foot. Upon assessment, 2 large, red, circular areas on lateral aspect of left foot. Areas are not raised. Patient denies any pain or itching of areas. Cream applied. Will continue to monitor.
[2022-06-14] MEDS: Ondansetron 8 MG Tablet PO (22:59)
[2022-06-14 23:12] VITALS: BP 118/61; PULSE 48; RESP 18; O2SAT 100
[2022-06-15] MEDS: Doxycycline 100 MG CAPSULE PO ×2 (06:37→17:42)
[2022-06-15] MEDS: Acetaminophen 500 MG Tablet 1000 MG PO ×3 (06:37→21:55)
--- NOTE | 2022-06-15 07:38 | NURSING ---
Patient continued to have nausea this morning. Did not want Zofran this morning due to it making her feel drowsy. Will continue to monitor.
[2022-06-15] MEDS: Cholecalciferol (VIT D3) 25 MCG TABLET (1,000 UNITS) 50 MCG PO (08:40)
[2022-06-15] MEDS: Juven (unflavored) Packet 1 PACKET PO ×2 (08:40→17:43)
[2022-06-15] MEDS: Amox/Clavulanate 500 MG Tablet PO ×2 (08:40→17:43)
[2022-06-15] MEDS: Calcium (Elemental) 500 MG Tablet PO ×3 (08:40→17:43)
[2022-06-15] MEDS: Gabapentin 300 MG Capsule PO ×3 (08:41→17:42)
[2022-06-15] MEDS: Aspirin 81 MG TAB.CHEW PO (08:41)
[2022-06-15] MEDS: Senna/Docusate Sodium 1 Tablet 2 TABLET PO ×2 (08:41→17:43)
[2022-06-15] MEDS: Pantoprazole Sodium 20 MG Tablet PO (10:40)
[2022-06-15] MEDS: Petrolatum 33% Tube 1 APPLIC TOPICAL (10:41)
[2022-06-15] MEDS: Nystatin Powder 15gm Bottle 1 APPLIC TOPICAL (10:42)
--- NOTE | 2022-06-15 13:39 | WOUNDNOTE ---
Wound VAC dressing remains intact to sacrum. Good seal noted at 150mmHg low continuous suction. Plan to get patient back on a -- schedule with next dressing change tomorrow 06/16/21.
[2022-06-15 15:43] VITALS: BP 105/48; PULSE 58; RESP 16; TEMP 36.4; O2SAT 98
[2022-06-15] MEDS: oxyCODONE 5 MG Tablet PO (21:53)
[2022-06-15 22:20] VITALS: PULSE 68; RESP 14; O2SAT 97
[2022-06-16] MEDS: Acetaminophen 500 MG Tablet 1000 MG PO ×3 (06:48→21:50)
[2022-06-16] MEDS: Doxycycline 100 MG CAPSULE PO ×2 (06:48→17:03)
[2022-06-16] MEDS: Gabapentin 300 MG Capsule PO ×3 (08:12→17:02)
[2022-06-16] MEDS: Calcium (Elemental) 500 MG Tablet PO ×3 (08:12→16:46)
[2022-06-16] MEDS: Amox/Clavulanate 500 MG Tablet PO ×2 (08:12→16:44)
[2022-06-16] MEDS: Aspirin 81 MG TAB.CHEW PO (08:13)
[2022-06-16] MEDS: Senna/Docusate Sodium 1 Tablet 2 TABLET PO ×2 (08:13→16:44)
[2022-06-16] MEDS: Juven (unflavored) Packet 1 PACKET PO ×2 (08:13→16:44)
[2022-06-16] MEDS: Cholecalciferol (VIT D3) 25 MCG TABLET (1,000 UNITS) 50 MCG PO (08:13)
--- NOTE | 2022-06-16 11:45 | CASEMGMT ---
Social Work Followed up with pt about DC plans. Pt and dtr spoke last night, but pt reports there is still no plan for DC. Pt expresses still having concern with not being independent and living home alone. Pt stated originally the goal was for pt to DC to dtr's house, but dtr has a lot going on as it is, and gets very queazy with the mayer and wound vac. SW educated to skilled C RN to change and manage wound vac x3 wk, and will be monitoring mayer during those visits, if pt DCs home on mayer. In addition, [facility] will contain PT/OT/HOWE/SW to assist with transition home. Optimistic transition to dtr's home will be temporary, with pt returning home alone. Pt still in disbelief she is ready to go home, when I can't even get up on my own. Educated that pt only needs assistance d/t to wound vac pole, otherwise, therapy is confident pt is mod I. Educated once pt is home, a portable wound vac will be placed and will not need another person to manage. Pt states she will need to go to a SNF. Educated to OOP cost of SNF or AL or possibly being eligible for [facility]. Pt states she cannot pay OOP. Explained the goal for DC is about one week (06/24-15). Explained pt is receiving 3x/wk for therapy and wound vac changes, thus not daily skillable care by Medicare for ongoing continued stay. SW offered to speak with nursing about starting voiding trials to remove mayer, and when portable wound vac could be placed prior to DC. Pt agrees. SW spoke with pt at length and continued to instill confidence in pt being independent and can DC home. Offered to contact dtr to discuss options and answer questions. Pt agreeable and appreciative. Notified nurse about mayer and wound vac requests. Updated treating COMMERCIAL PEST CONTROL TECHNICIAN and SENIOR ADVISOR on conversation and concerns expressed to focus on for upcoming sessions. Contacted dtr to discuss DC plans. Dtr stated she was in to visit pt last night but the only thing [pt] said is she would discharged in a couple weeks - and if that's the case, she has a lot of concerns. Dtr expressed concerns. SW provided supportive listening. Dtr mainly concerned about pt being home with a mayer and wound vac. Dtr acknowledged the goal was for pt to DC home with dtr, but no longer feels that can happen d/t the need of medical care and not being able to transfer independently. SW educated to same explanation given to pt. Dtr is appreciative of steps to remove mayer. Dtr stated she knows pt is hard on self and does not have the confidence to be discharged. SW agreed and explained this worker spoke with patient for about 30 minutes and encouraged pt to have confidence. SW also relayed to GRISEL treating pt this afternoon to communicate with pt on tasks pt still wants to improve on, encourage confidence, etc. Dtr appreciative. Dtr stated she will be moving her dtr into college until 06/21 and works the rest of the week; dtr would prefer longer timeframe for DC as she didn't know it would happen this soon. SW explained Medicare only provides 3 day notice and IDT is providing about a 7 day notice. SW to speak with IDT on final DC date, but plans need to be in place soon. Dtr expressed understanding and will see who can help her getting pt's first floor ready. [facility]. SW to coordinate all DME and skilled HHC at [facility]. Nursing stated voiding trials can begin, but portable vac can only be placed one day prior to DC. SW to continue to follow. JAMIR FowlerW
[2022-06-16] MEDS: Nystatin Powder 15gm Bottle 1 APPLIC TOPICAL ×2 (13:28→21:50)
[2022-06-16] MEDS: Petrolatum 33% Tube 1 APPLIC TOPICAL (13:28)
[2022-06-16 14:09] VITALS: BP 112/51; PULSE 62; RESP 20; TEMP 36.5; O2SAT 97
--- NOTE | 2022-06-16 15:00 | NURSING ---
Vázquez cath removed per order. Pt tolerated well tip of Vázquez intact and Bladder scan q8hr.
[2022-06-16] MEDS: oxyCODONE 5 MG Tablet PO (21:48)
[2022-06-16 21:56] VITALS: PULSE 68; RESP 18; O2SAT 95
[2022-06-17] MEDS: Acetaminophen 500 MG Tablet 1000 MG PO ×3 (06:00→21:18)
[2022-06-17] MEDS: Doxycycline 100 MG CAPSULE PO ×2 (06:00→18:23)
[2022-06-17] MEDS: Ondansetron 8 MG Tablet PO (06:40)
[2022-06-17] MEDS: Cholecalciferol (VIT D3) 25 MCG TABLET (1,000 UNITS) 50 MCG PO (07:43)
[2022-06-17] MEDS: Gabapentin 300 MG Capsule PO ×3 (07:43→18:26)
[2022-06-17] MEDS: Senna/Docusate Sodium 1 Tablet 2 TABLET PO ×2 (07:45→18:20)
[2022-06-17] MEDS: Calcium (Elemental) 500 MG Tablet PO ×3 (07:48→18:21)
[2022-06-17] MEDS: Juven (unflavored) Packet 1 PACKET PO ×2 (07:49→18:19)
[2022-06-17] MEDS: Aspirin 81 MG TAB.CHEW PO (07:50)
[2022-06-17] MEDS: Amox/Clavulanate 500 MG Tablet PO ×2 (07:52→18:20)
[2022-06-17] MEDS: Petrolatum 33% Tube 1 APPLIC TOPICAL (11:15)
[2022-06-17] MEDS: Nystatin Powder 15gm Bottle 1 APPLIC TOPICAL ×2 (11:16→21:18)
[2022-06-17] MEDS: Pantoprazole Sodium 20 MG Tablet PO (11:26)
[2022-06-17 16:00] VITALS: BP 105/52; PULSE 70; RESP 16; TEMP 36.8; O2SAT 96
[2022-06-17] MEDS: Hydrocortisone 2.5% Crm 1 APPLIC TOPICAL (18:38)
[2022-06-17 20:41] VITALS: PULSE 60; RESP 18; O2SAT 99
[2022-06-17] MEDS: oxyCODONE 5 MG Tablet PO (21:18)
--- NOTE | 2022-06-18 01:47 | NURSING ---
Wound VAC dressing remains intact to sacrum. Good seal noted at 150mmHg low continuous suction.
--- NOTE | 2022-06-18 03:45 | NURSING ---
R' HAS BEEN VOIDING W/O DIFFICULTY T/O SHIFT. VOIDED AT THIS TIME. BLADDER SCAN COMPLETED BY SUPERVISOR CURED MEATS FOR 0cc.
[2022-06-18] MEDS: Doxycycline 100 MG CAPSULE PO ×2 (04:39→18:20)
[2022-06-18] MEDS: Acetaminophen 500 MG Tablet 1000 MG PO ×3 (04:39→21:42)
[2022-06-18] MEDS: Cholecalciferol (VIT D3) 25 MCG TABLET (1,000 UNITS) 50 MCG PO (08:33)
[2022-06-18] MEDS: Juven (unflavored) Packet 1 PACKET PO ×2 (08:33→18:23)
[2022-06-18] MEDS: Aspirin 81 MG TAB.CHEW PO (08:34)
[2022-06-18] MEDS: Senna/Docusate Sodium 1 Tablet 2 TABLET PO ×2 (08:34→18:20)
[2022-06-18] MEDS: Gabapentin 300 MG Capsule PO ×3 (08:34→18:23)
[2022-06-18] MEDS: Calcium (Elemental) 500 MG Tablet PO ×3 (08:34→18:20)
[2022-06-18] MEDS: Amox/Clavulanate 500 MG Tablet PO ×2 (08:35→18:20)
[2022-06-18 10:05] VITALS: PULSE 58; RESP 18; O2SAT 97
[2022-06-18] MEDS: Petrolatum 33% Tube 1 APPLIC TOPICAL (11:08)
[2022-06-18] MEDS: Nystatin Powder 15gm Bottle 1 APPLIC TOPICAL ×2 (11:10→21:46)
[2022-06-18 16:00] VITALS: BP 116/54; PULSE 57; RESP 18; TEMP 36.8; O2SAT 97
--- NOTE | 2022-06-18 21:20 | NURSING ---
Paged Dr. Lyons w/ immediate return phone call. Requested orders for Dakin solution and Ketoconazole cream be changed to PRN since wound vac dressing changes have resumed. Order received and read back.
[2022-06-18] MEDS: oxyCODONE 5 MG Tablet PO (21:43)
[2022-06-19] MEDS: Acetaminophen 500 MG Tablet 1000 MG PO ×3 (06:14→21:14)
--- NOTE | 2022-06-19 08:00 | NURSING ---
Communication sent to pharmacy this am as Doxycycline is not in pt's med box or accudose. Reports headache and nausea. Refused Zofran and medicated w/ scheduled Tylenol.
[2022-06-19] MEDS: Aspirin 81 MG TAB.CHEW PO (08:44)
[2022-06-19] MEDS: Juven (unflavored) Packet 1 PACKET PO ×2 (08:44→17:49)
[2022-06-19] MEDS: Doxycycline 100 MG CAPSULE PO ×2 (08:45→17:50)
[2022-06-19] MEDS: Amox/Clavulanate 500 MG Tablet PO ×2 (08:45→17:49)
[2022-06-19] MEDS: Cholecalciferol (VIT D3) 25 MCG TABLET (1,000 UNITS) 50 MCG PO (08:45)
[2022-06-19] MEDS: Gabapentin 300 MG Capsule PO ×3 (08:45→17:53)
[2022-06-19] MEDS: Calcium (Elemental) 500 MG Tablet PO ×3 (08:45→17:49)
[2022-06-19] MEDS: Senna/Docusate Sodium 1 Tablet 2 TABLET PO ×2 (08:47→17:49)
[2022-06-19] MEDS: Nystatin Powder 15gm Bottle 1 APPLIC TOPICAL (10:28)
[2022-06-19] MEDS: Pantoprazole Sodium 20 MG Tablet PO (10:28)
[2022-06-19] MEDS: Petrolatum 33% Tube 1 APPLIC TOPICAL (10:28)
--- NOTE | 2022-06-19 14:30 | WOUNDNOTE ---
wound photo: sacrum
--- NOTE | 2022-06-19 14:31 | NURSING ---
Notified pt of staff member testing positive for covid.
--- NOTE | 2022-06-19 14:31 | WOUNDNOTE ---
Home VAC paperwork initiated. awaiting approval. plan is for discharge home this weekend with home health care. therapy planning on getting patient into the shower on 06/21/22 prior to wound VAC change.
[2022-06-19 15:58] VITALS: BP 106/61; PULSE 62; RESP 18; TEMP 36.3; O2SAT 97
[2022-06-19 21:00] VITALS: PULSE 60; RESP 16; O2SAT 97
[2022-06-19] MEDS: oxyCODONE 5 MG Tablet PO (21:17)
[2022-06-20] MEDS: Nystatin Powder 15gm Bottle 1 APPLIC TOPICAL ×3 (05:56→21:34)
[2022-06-20] MEDS: Juven (unflavored) Packet 1 PACKET PO ×2 (08:28→18:24)
[2022-06-20] MEDS: Amox/Clavulanate 500 MG Tablet PO ×2 (08:28→18:24)
[2022-06-20] MEDS: Doxycycline 100 MG CAPSULE PO ×2 (08:29→18:24)
[2022-06-20] MEDS: Calcium (Elemental) 500 MG Tablet PO ×3 (08:29→18:24)
[2022-06-20] MEDS: Gabapentin 300 MG Capsule PO ×3 (08:29→18:24)
[2022-06-20] MEDS: Senna/Docusate Sodium 1 Tablet 2 TABLET PO (08:29)
[2022-06-20] MEDS: Aspirin 81 MG TAB.CHEW PO (08:29)
[2022-06-20] MEDS: Cholecalciferol (VIT D3) 25 MCG TABLET (1,000 UNITS) 50 MCG PO (08:29)
--- NOTE | 2022-06-20 10:01 | CASEMGMT ---
Social Work Met with pt to follow on DC plans. Pt's mayer has been removed and voiding well. Pt can get portable wound vac placed 1-2 days prior to DC. Explained IDT is setting DC date for 06/25. Explained appeal rights. Inquired about DC location. Pt states she plans on returning to her home alone, but will confirm with her dtr. Pt requesting [facility]. SW to place referral and see if [facility] can go to either pt's or dtr's home. Pt also needing FWW and hospital bed. Dtr to transport at DC. Referral phoned to [facility] for PT/OT/SN/HOWE/SW. DME referral sent via [employer] for FWW and hospital bed. Notified wound nurse of DC date. Plan: DC home alone 06/25, [facility] PT/OT/SN/HOWE/SW, FWW, hospital bed, portable wound vac JAMIR FowlerW
[2022-06-20] MEDS: Petrolatum 33% Tube 1 APPLIC TOPICAL (11:57)
[2022-06-20] MEDS: Acetaminophen 500 MG Tablet 1000 MG PO ×2 (13:55→21:38)
[2022-06-20 15:23] VITALS: BP 107/54; PULSE 63; RESP 14; TEMP 36.3; O2SAT 97
--- NOTE | 2022-06-20 19:35 | DS.PCM_ITS ---
Providers Date of Admission: 04/17/22 Primary Care Physician: Dr. Vivian Payne DO Consultations 04/18/22 11:10 Consult: Onc/Wound/mash tub cooker Routine Comment: Reason for Consult:: blisters,incisions RT foot/ankle/toes 05/15/22 12:34 Consult: Plastic Surgery Routine Consulting Provider: Jose Lee Reason for Consult: wound debridement EMERGENT Consult: No MD Notified: Yes Date Notified: 05/15/22 Time Notified: 14:36 Method of Notification: Verbal 05/31/22 16:34 Consult: Infectious Disease Routine Consulting Provider: Saulo Craven Reason for Consult: Sacral bone path consistent with osteomyelitis EMERGENT Consult: No MD Notified: Yes Date Notified: 06/01/22 Time Notified: 08:18 Method of Notification: Verbal Reason For Visit: FALL Diagnosis Discharge Diagnosis (1) Pressure ulcer of sacral region, stage 4: Status: Chronic Code(s): L89.154 - Pressure ulcer of sacral region, stage 4 (2) Skin necrosis: Status: Chronic Code(s): I96 - Gangrene, not elsewhere classified (3) Transient disorientation: Status: Resolved Code(s): R41.0 - Disorientation, unspecified (4) Fall in home: Status: Resolved Code(s): W19.XXXA - Unspecified fall, initial encounter; Y92.009 - Unspecified place in unspecified non-institutional (private) residence as the place of occurrence of the external cause Plan 72 year old female with below past medical history suffered fall from second story, hospitalized for multi trauma, underwent left tibia intramedullary nail fixation, right hip anterograde intramedullary nail, complicated by encephalopathy from urinary tract infection, stage 4 left sacral pressure ulcer with chronic osteomyelitis, admitted to TCU with debility, here for rehabilitation, strengthening, prior to discharge home alone. * Debility - PT/OT. * Pain - Tylenol 1000mg q8, Oxycodone 5-10mg q6h prn pain (1-5, 6-10). * Bowel - Miralax 17gm daily, Senna/colace 2 tablet bid, Lactulose 20gm bid prn, Dulcolax 10mg pr daily prn. * Adult immunization - Administer pneumonia vaccine, covid19 vaccine, flu vacc ine as appropriate. * DVT prophylaxis - Hold. * CV prophylaxis - Aspirin 81mg daily. * Calcium deficiency - Calcium 500mg tidcm. * Neuropathic pain - Gabapentin 300mg tid. * Lactose intolerance - Lactase 9,000 units daily. * GI prophylaxis - Lactobacillus 1 tablet daily. * GERD - Pantoprazole 20mg q48h. * Vitamin D deficiency - D3 50mcg daily. * Anxiety - Xanax 0.5mg tid prm. * Right lower lobe lung mass - PET/CT and/or biopsy as outpatient. * Stage 4 left sacral pressure ulcer s/p debridement - Dr. Lee, Wound VAC, Augmentin 500mg bid thru 07/12/2022, Doxycycline 100mg bid, Fluconazole 150mg qweek thru 06/24/2022. * Nutrition - Tommy 1 packet bidcm. * Skin irritation - Calmoseptine topical tid, Petroleum topical daily. * Tinea Corporis - Nystatin powder topical bid, Ketoconazole cream topical bid. * Nausea - Zofran 8mg q8h prn. * Dry Nares - Sodium chloride 1 spray nasal bid prn. Medications at Discharge Home Medications Probiotic 1 cap PO/SL DAILY digestion 04/17/22 aspirin 81 mg capsule 81 mg PO DAILY blood thinner 04/17/22 biotin 5,000 mcg disintegrating tablet 5,000 mcg PO DAILY supplement 04/17/22 calcium 600 mg capsule 600 mg PO TID supplement 04/17/22 cholecalciferol (vitamin D3) 25 mcg (1,000 unit) capsule (Vitamin D3) 50 mcg PO DAILY supplement 04/17/22 acetaminophen 500 mg tablet 1,000 mg PO Q8 #0 tabs 06/20/22 amoxicillin 500 mg-potassium clavulanate 125 mg tablet 500 mg PO BIDCM 16 days #32 tabs 06/20/22 arginine 7 gram-glutam 7 gram-CaHMB 1.5 [id number]-min oral pwd pkt (Tommy (with collagen)) 1 packet PO BIDCM 30 days #60 ea 06/20/22 doxycycline monohydrate 100 mg capsule 100 mg PO BID 16 days #32 caps 06/20/22 gabapentin 300 mg capsule 300 mg PO TIDCM 30 days #90 caps 06/20/22 lactase 9,000 unit tablet (Lactaid Fast Act) 9,000 unit PO DAILY@0800 30 days #30 tabs 06/20/22 ondansetron HCl 8 mg tablet 8 mg PO Q8H PRN PRN NAUSEA/VOMITING 30 days #90 tabs 06/20/22 oxycodone 5 mg tablet 5 - 10 mg PO Q4H PRN Pain 1-10 7 days #35 tabs 06/20/22 pantoprazole 20 mg tablet,delayed release 20 mg PO Q48 30 days #15 tabs 06/20/22 sennosides 8.6 mg-docusate sodium 50 mg tablet (Stool Softener-Stimulant Laxative) 2 tab PO BIDCM #0 tabs 06/20/22 Hospital Course Operations - (Stage 4 left sacal pressure ulcer debridement.) Procedures None Summary of Care Provided Minutes Spent on Discharge: 35 Hospital Course: 72 year old female with below past medical history suffered fall from second story, hospitalized for multi trauma, underwent left tibia intramedullary nail fixation, right hip anterograde intramedullary nail, complicated by encephalopathy from urinary tract infection, stage 4 left sacral pressure ulcer with chronic osteomyelitis, admitted to TCU with debility, here for rehabilitation, strengthening, prior to discharge home alone. 06/01/2022 Dr. Lee debrided stage 4 left sacral pressure ulcer. Discharge home alone 06/25/2022, [facility] PT/OT/SN/HOWE/SW, Front wheeled walker, Hospital Bed, Portable wound VAC. Physical Exam Const alert General Appearance: cooperative HEENT normocephalic Eyes PERRL and EOMs intact bilaterally Neck supple, no JVD and no carotid bruits Resp normal respiratory effort, normal air movement and clear to auscultation bilaterally Cardio regular rate and regular rhythm GI normal to inspection, nondistended, normoactive bowel sounds, non-tender and non-distended Extremity normal capillary refill General Extremity: Negative for edema Skin no rashes or lesions noted Wound Narrative: Left sacral pressure ulcer wound VAC. Psych affect normal Appearance: appropriate Weight / BMI Weight Weight: 55.338 kg Body Mass Index (BMI) 23.4 ABG / Lab / Microbiology Data Result Diagrams: 06/14/22 05:24 06/14/22 04:17 Microbiology: Microbiology 06/19/22 16:30 Nasal Secretion SARS-CoV-2 Antigen (Rapid) - Final 05/22/22 09:45 Urine Catheter - Vázquez Urine Culture - Final Pseudomonas aeroginosa 05/09/22 22:32 Wound - Buttock Gram Stain - Final 05/09/22 22:32 Wound - Buttock Wound Culture - Final Escherichia coli Staphylococcus aureus 05/01/22 19:00 Urine, Clean Catch Urine Culture - Final Corynebacterium amycolatum/xer 04/24/22 13:20 Urine, Clean Catch Urine Culture - Final Corynebacterium amycolatum 04/19/22 08:50 Nasal Secretion SARS-CoV-2 Antigen (Rapid) - Final 04/19/22 07:22 Nasal Secretion SARS-CoV-2 Antigen (Rapid) - Final D/C Instructions Discharge Diet: No restrictions Discharge Activity: Return to Normal Activity, May Shower and Use Walker Weight Bearing Status: Weight bearing as tolerated Call your doctor if you observe: Fever of 101 or Higher, Inability to urinate, Inability to have a bowel movement, Shortness of breath, Dizziness, Fainting spells, Swelling in the ankles, Chest pain and Uncontrolled pain Additional Instructions: Discharge home alone 06/25/2022, [facility] PT/OT/SN/HOWE/SW, Front wheeled walker, Hospital Bed, Portable wound VAC. Please Follow Up With: Dax Pope When: As scheduled. Meaningful Use Info Meaningful Use Diagnoses (Choose all that apply): None applicable Discharge Plan Admission Admit Date/Time: 04/17/22 16:39 Primary Reason for Your Visit: Debility. Attending Provider: Don Lyons Chi Primary Care Provider: Vivian Payne Consulting Providers: Jose Lee ; Saulo Craven Instructions Additional Instructions / Restrictions: Discharge home alone 06/25/2022, [facility] PT/ OT/SN/HOWE/SW, Front wheeled walker, Hospital Bed, Portable wound VAC. Discharge Orders/Prescriptions Prescriptions: New Tommy (with collagen) 7-7-1.5 gram Powder In Packet 1 packet PO BIDCM 30 Days Qty: 60 0RF lactase [Lactaid Fast Act] 9,000 unit Tablet 9,000 unit PO DAILY@0800 30 Days Qty: 30 0RF gabapentin 300 mg Capsule 300 mg PO TIDCM 30 Days Qty: 90 0RF sennosides-docusate sodium [Stool Softener-Stimulant Laxat] 8.6-50 mg Tablet 2 tab PO BIDCM Qty: 0 0RF pantoprazole 20 mg Tablet,Delayed Release (Dr/Ec) 20 mg PO Q48 30 Days Qty: 15 0RF oxycodone 5 mg Tablet 5 - 10 mg PO Q4H PRN (Reason: Pain 1-10) 7 Days Qty: 35 0RF acetaminophen 500 mg Tablet 1,000 mg PO Q8 Qty: 0 0RF ondansetron HCl 8 mg Tablet 8 mg PO Q8H PRN PRN (Reason: NAUSEA/VOMITING) 30 Days Qty: 90 0RF doxycycline monohydrate 100 mg Capsule 100 mg PO BID 16 Days Qty: 32 0RF amoxicillin-pot clavulanate 500-125 mg Tablet 500 mg PO BIDCM 16 Days Qty: 32 0RF Continued calcium 600 mg Capsule 600 mg PO TID biotin 5,000 mcg Tablet,Disintegrating 5,000 mcg PO DAILY aspirin 81 mg Capsule 81 mg PO DAILY cholecalciferol (vitamin D3) [Vitamin D3] 25 mcg (1,000 unit) Capsule 50 mcg PO DAILY Probiotic 1 cap PO/SL DAILY Discontinued lidocaine [Salonpas (lidocaine)] 4 % Adhesive Patch,Medicated 1 patch TOPICAL DAILY sennosides-docusate sodium [Senna with Docusate Sodium] 8.6-50 mg Tablet 1 tab PO BID acetaminophen 500 mg Tablet 1,000 mg PO Q6H PRN (Reason: Pain) lactase 9,000 unit Tablet 9,000 unit PO DAILY oxycodone 5 mg Capsule 5 - 10 mg PO Q6H PRN (Reason: Pain) Rx Instructions: take 5-10mg q6PRN for pain gabapentin 100 mg Capsule 100 mg PO TID colestipol 1 gram Tablet 1 g PO DAILY metronidazole 0.75 % Cream 1 applic TOPICAL DAILY esomeprazole magnesium [Nexium] 20 mg Capsule,Delayed Release(Dr/Ec) 20 mg PO DAILY cyclobenzaprine 5 mg Tablet 5 mg PO TID omega 1-khu-smw-fish oil [Fish Oil] 300-1,000 mg Capsule 2 cap PO DAILY cyanocobalamin (vitamin B-12) [Vitamin B-12] 5,000 mcg Tablet, Sublingual 5,000 mcg SUBLINGUAL DAILY levofloxacin 500 mg tablet 500 mg PO DAILY Tommy 7-7-1.5 gram powder in packet 1 ea PO BID pantoprazole [Protonix] 20 mg Tablet,Delayed Release (Dr/Ec) 20 mg PO DAILY Referrals / Follow Up: Vivian Payne DO [Primary Care Provider] - Disposition Disposition (needs filled in before D/C Order can be placed): Home Health Service
[2022-06-20] MEDS: oxyCODONE 5 MG Tablet PO (21:38)
--- NOTE | 2022-06-20 23:20 | NURSING ---
At 2140 prn pain meds given per patient request to severe pain to the buttock region and effective.
[2022-06-21 05:54] LABS: Absolute Lymphocyte Count 2.24 X10^3/uL (0.83-4.51); Basophil# 0.05 X10^3/uL; Basophil% 0.8 % (0-1); Eosinophil# 0.38 X10^3/uL; Hematocrit 37.7 % (37-47); Hemoglobin 11.6 g/dL (12.0-15.0); Lymphocyte # 2.24 X10^3/ul (0.83-4.51); Lymphocyte % 35.6 % (19-41); Mean Corp Hgb Conc 30.8 g/dL (32-36); Mean Corpuscular Volume 94.3 fL (81-99); Mean Platelet Vol. 9.6 fl (6.2-12.0); Monocyte# 0.62 X10^3/uL; Monocyte% 9.9 % (0-10); NRBC Flagged by Analyzer 0 % (0-5); Neutrophil # 2.98 X10^3/uL (2.7-7.7); Neutrophil % 47.4 % (47-70); Platelet Count 282 K/mm3 (150-450); RBC Distribution Width CV 14.8 % (11.6-14.6); RBC Distribution Width SD 51.6 fl (35.1-43.9); White Blood Count 6.3 K/mm3 (4.4-11.0)
[2022-06-21] MEDS: Acetaminophen 500 MG Tablet 1000 MG PO ×3 (06:27→22:42)
[2022-06-21] MEDS: Doxycycline 100 MG CAPSULE PO ×2 (06:28→18:10)
[2022-06-21 06:37] LABS: Anion Gap 3 (5-15); BUN 24 mg/dL (7-18); BUN/Creat Ratio 52.1 RATIO (10-20); Calcium,Total 9.8 mg/dL (8.5-10.1); Chloride 105 mmol/L (98-107); Creatinine, Serum 0.46 mg/dL (0.55-1.02); EST Glomerular Filtration Rate 141 mL/min (>60); Est Glom Filt Rate - Afr Amer 171 mL/min (>60); Estimated Creatinine Clearance 43.77 ml/min; Glucose 100 mg/dL (74-106); Sodium Level 136 mmol/L (136-145)
[2022-06-21] MEDS: Senna/Docusate Sodium 1 Tablet 2 TABLET PO ×2 (08:21→18:10)
[2022-06-21] MEDS: Calcium (Elemental) 500 MG Tablet PO ×3 (08:21→18:10)
[2022-06-21] MEDS: Aspirin 81 MG TAB.CHEW PO (08:21)
[2022-06-21] MEDS: Juven (unflavored) Packet 1 PACKET PO ×2 (08:21→18:10)
[2022-06-21] MEDS: Amox/Clavulanate 500 MG Tablet PO ×2 (08:21→18:10)
[2022-06-21] MEDS: Gabapentin 300 MG Capsule PO ×3 (08:21→18:10)
[2022-06-21] MEDS: Cholecalciferol (VIT D3) 25 MCG TABLET (1,000 UNITS) 50 MCG PO (08:22)
--- NOTE | 2022-06-21 08:38 | WOUNDNOTE ---
Home VAC approved.
[2022-06-21] MEDS: FLUCONAZOLE 150 MG TABLET PO (11:52)
[2022-06-21] MEDS: Pantoprazole Sodium 20 MG Tablet PO (11:52)
[2022-06-21] MEDS: Petrolatum 33% Tube 1 APPLIC TOPICAL (11:53)
[2022-06-21] MEDS: Nystatin Powder 15gm Bottle 1 APPLIC TOPICAL ×2 (11:55→22:46)
[2022-06-21 16:00] VITALS: BP 111/64; PULSE 66; RESP 19; TEMP 36.4; O2SAT 96
--- NOTE | 2022-06-21 16:45 | CASEMGMT ---
Social Work Followed up with pt to answer further questions on DC. Pt is still unsure if she will go to her dtr's house or her house. Pt still expressing concern and lack of confidence with DC. SW spoke with patient at length and provided ongoing emotional and verbal support. Encouraged pt to reframe mindset, focus on the positives and gains made during recovery, how each phase in life leads people to a new version of themselves, etc. Pt emotional at times. SW offered resources like home delivered meals, pt denied. Offered counseling resources - pt denied. SW left print outs of both information regardless. Pt expressed appareciation for time and conversation with this worker, however, pt's attitude did not change. Cass Hodges, WATCH ASSEMBLY INSTRUCTOR CLINICAL CYTOGENETICIST
[2022-06-21 22:00] VITALS: PULSE 68; RESP 16; O2SAT 98
[2022-06-21] MEDS: oxyCODONE 5 MG Tablet PO (22:41)
[2022-06-22] MEDS: Doxycycline 100 MG CAPSULE PO ×2 (05:40→17:44)
[2022-06-22] MEDS: Acetaminophen 500 MG Tablet 1000 MG PO ×3 (05:40→20:59)
[2022-06-22] MEDS: Calcium (Elemental) 500 MG Tablet PO ×3 (08:10→17:44)
[2022-06-22] MEDS: Amox/Clavulanate 500 MG Tablet PO ×2 (08:10→17:43)
[2022-06-22] MEDS: Cholecalciferol (VIT D3) 25 MCG TABLET (1,000 UNITS) 50 MCG PO (08:10)
[2022-06-22] MEDS: Senna/Docusate Sodium 1 Tablet 2 TABLET PO ×2 (08:10→17:42)
[2022-06-22] MEDS: Gabapentin 300 MG Capsule PO ×3 (08:10→17:43)
[2022-06-22] MEDS: Juven (unflavored) Packet 1 PACKET PO ×2 (08:10→17:42)
[2022-06-22] MEDS: Aspirin 81 MG TAB.CHEW PO (08:10)
--- NOTE | 2022-06-22 13:12 | MDS.RN ---
Pain interview for GWENDOLYN 06/25/22
[2022-06-22] MEDS: Nystatin Powder 15gm Bottle 1 APPLIC TOPICAL (14:02)
[2022-06-22] MEDS: Petrolatum 33% Tube 1 APPLIC TOPICAL (14:02)
[2022-06-22 15:23] VITALS: BP 117/42; PULSE 72; RESP 16; TEMP 37; O2SAT 98
[2022-06-22] MEDS: oxyCODONE 5 MG Tablet PO (20:59)
[2022-06-23] MEDS: Acetaminophen 500 MG Tablet 1000 MG PO ×3 (05:58→21:32)
[2022-06-23] MEDS: Doxycycline 100 MG CAPSULE PO ×2 (05:59→18:24)
[2022-06-23] MEDS: Amox/Clavulanate 500 MG Tablet PO ×2 (08:47→18:24)
[2022-06-23] MEDS: Juven (unflavored) Packet 1 PACKET PO ×2 (08:47→18:24)
[2022-06-23] MEDS: Aspirin 81 MG TAB.CHEW PO (08:48)
[2022-06-23] MEDS: Senna/Docusate Sodium 1 Tablet 2 TABLET PO ×2 (08:48→18:25)
[2022-06-23] MEDS: Calcium (Elemental) 500 MG Tablet PO ×3 (08:48→18:24)
[2022-06-23] MEDS: Cholecalciferol (VIT D3) 25 MCG TABLET (1,000 UNITS) 50 MCG PO (08:50)
[2022-06-23] MEDS: Gabapentin 300 MG Capsule PO ×3 (08:52→18:32)
[2022-06-23] MEDS: Petrolatum 33% Tube 1 APPLIC TOPICAL (09:52)
[2022-06-23] MEDS: Nystatin Powder 15gm Bottle 1 APPLIC TOPICAL ×2 (09:53→21:31)
[2022-06-23 10:00] VITALS: RESP 18; O2SAT 98
[2022-06-23] MEDS: Pantoprazole Sodium 20 MG Tablet PO (10:07)
--- NOTE | 2022-06-23 10:46 | CASEMGMT ---
Social Work Spoke with pt yesterday and today on further finalization of DC plans. Pt and dtr have gone back and forth on DC destination. Pt spoke with [employer] to get questions answered on the hospital bed delivery and payment. Pt stated today she will be going to her own home. The hospital bed is at her own, the FWW will be delivered to pt's room today. SW updated [facility] on DCing home. Cass Hodges, ELECTRIC RAZOR MECHANIC SHOT POLISHER
[2022-06-23 12:15] VITALS: RESP 18; O2SAT 98
[2022-06-23 14:33] VITALS: BP 98/49; PULSE 65; RESP 16; TEMP 36.9; O2SAT 97
--- NOTE | 2022-06-23 16:53 | CASEMGMT ---
Social Work BIMS () and PHQ-9 (04/06) completed for MDS assessment. Cass Hodges, PRINTING MANAGER CORPORATE RELATIONS MANAGER
--- NOTE | 2022-06-23 17:01 | PCM.PN.SRG ---
Subjective Subjective Postop #32 Patient underwent excision necrotic left sacral pressure sore, Stage IV, with partial ostectomy for osteomyelitis. Patient sitting up in chair. Objective Data Objective Data Vital Signs: Vital Signs Temp Pulse Resp BP Pulse Ox O2 Del Method 98.5 F 65 16 98/49 L 97 Room Air 06/23/22 14:33 06/23/22 14:33 06/23/22 14:33 06/23/22 14:33 06/23/22 14:33 06/23/22 14:33 Oxygen Delivery Method Room Air Weight: 122 lb Body Mass Index (BMI) 23.4 Intake & Output: Intake and Output for Last 24 Hours 06/21/22 06/22/22 06/23/22 23:59 23:59 23:59 Intake Total 720 / 720 480 / 480 560 / 560 Balance 720 / 720 480 / 480 560 / 560 Lab / Micro Data Result Diagrams: 06/21/22 05:35 06/21/22 05:35 Micro: Microbiology 06/23/22 09:37 Nasal Secretion SARS-CoV-2 Antigen (Rapid) - Final 06/21/22 06:30 Nasal Secretion SARS-CoV-2 Antigen (Rapid) - Final 06/19/22 16:30 Nasal Secretion SARS-CoV-2 Antigen (Rapid) - Final 05/22/22 09:45 Urine Catheter - Vázquez Urine Culture - Final Pseudomonas aeroginosa 05/09/22 22:32 Wound - Buttock Gram Stain - Final 05/09/22 22:32 Wound - Buttock Wound Culture - Final Escherichia coli Staphylococcus aureus 05/01/22 19:00 Urine, Clean Catch Urine Culture - Final Corynebacterium amycolatum/xer 04/24/22 13:20 Urine, Clean Catch Urine Culture - Final Corynebacterium amycolatum 04/19/22 08:50 Nasal Secretion SARS-CoV-2 Antigen (Rapid) - Final 04/19/22 07:22 Nasal Secretion SARS-CoV-2 Antigen (Rapid) - Final Physical Exam Narrative General - Alert and Oriented. HEENT - PERRL. EOMI.? Neck - Supple and nontender. ? Abdomen - Soft and nondistended. Wound left sacral area - wound is clean.? Some granulation tissue seen.? Maceration of seamus wound is improving. Tolerating Wound VAC. Neuro - CN II-XII grossly intact. Psych - Normal mood and affect. Assessment & Plan Assessment/Plan (1) Pressure ulcer of sacral region, stage 4: (2) Skin necrosis: (3) Sacral osteomyelitis: PLAN: Plan Continue Wound VAC dressing changes at 150 mmHg 3 times per week. The periwound area continues to improve. Operative culture showed E. coli, Streptococcus sanguinis, Corynebacterium amycolatum, Prevotella oralis, and Anaerobic cocci in the soft tissue and Prevotella disiens in the bone. Pathology was positive for chronic osteomyelitis. Continue Augmentin for a total of 6 weeks. She completed the Levaquin. At the time of surgery, 05/22/22, a urine culture showed Pseudomonas aeroginosa that was treated with Levaquin. Encourage nutritional supplementation with protein to help the healing process. Prealbumin was 12.8 on 05/23/22. After discharge from TCU, can followup at the Wound Center. The plan is she will be discharged to home on Sunday. She will have home health 3 times a week for her dressing changes. She will follow up at the wound center on the week of 07/03/22. Patient has many concerns about being ready to go home. She is walking well with walker. I spoke with the Cass Hodges the social work associate and she states that the patient is doing very well but is nervous about going home. Charges/Coding Procedures Integumentary [id number]: [id number] Global Visit
[2022-06-23] MEDS: oxyCODONE 5 MG Tablet PO (21:33)
[2022-06-24] MEDS: Acetaminophen 500 MG Tablet 1000 MG PO ×3 (05:45→21:41)
[2022-06-24] MEDS: Doxycycline 100 MG CAPSULE PO ×2 (05:45→18:20)
--- NOTE | 2022-06-24 06:02 | NURSING ---
Pt voices concerns of d/c to home. The nurse gave reassurance and voiced to take advantage of services offered to her. Also readdressed talking to psychiatrist or therapist after d/c. This nurse educated pt on the positive effects of talking to someone about feelings and concerns. Pt denies at this time stating I don't need to talk to anyone. This nurse voiced understanding, but asked to not disregard it completely. This nurse reassured pt that she has improved immensely since admission and will continue to improve after d/c w/ HH.
[2022-06-24] MEDS: Amox/Clavulanate 500 MG Tablet PO ×2 (08:28→18:20)
[2022-06-24] MEDS: Gabapentin 300 MG Capsule PO ×3 (08:28→18:20)
[2022-06-24] MEDS: Senna/Docusate Sodium 1 Tablet 2 TABLET PO ×2 (08:28→18:19)
[2022-06-24] MEDS: Calcium (Elemental) 500 MG Tablet PO ×3 (08:28→18:20)
[2022-06-24] MEDS: Cholecalciferol (VIT D3) 25 MCG TABLET (1,000 UNITS) 50 MCG PO (08:28)
[2022-06-24] MEDS: Aspirin 81 MG TAB.CHEW PO (08:28)
[2022-06-24] MEDS: Juven (unflavored) Packet 1 PACKET PO ×2 (08:29→18:20)
[2022-06-24] MEDS: Nystatin Powder 15gm Bottle 1 APPLIC TOPICAL (13:44)
[2022-06-24] MEDS: Petrolatum 33% Tube 1 APPLIC TOPICAL (13:45)
[2022-06-24 15:39] VITALS: BP 103/47; PULSE 64; RESP 16; O2SAT 98
[2022-06-24] MEDS: oxyCODONE 5 MG Tablet PO (21:42)
[2022-06-24 23:50] VITALS: RESP 16; O2SAT 96
[2022-06-25] MEDS: Acetaminophen 500 MG Tablet 1000 MG PO ×2 (06:43→13:31)
[2022-06-25] MEDS: Doxycycline 100 MG CAPSULE PO ×2 (06:44→16:21)
[2022-06-25] MEDS: Cholecalciferol (VIT D3) 25 MCG TABLET (1,000 UNITS) 50 MCG PO (08:48)
[2022-06-25] MEDS: Amox/Clavulanate 500 MG Tablet PO ×2 (08:48→16:19)
[2022-06-25] MEDS: Calcium (Elemental) 500 MG Tablet PO ×3 (08:48→16:19)
[2022-06-25] MEDS: Senna/Docusate Sodium 1 Tablet 2 TABLET PO ×2 (08:48→16:19)
[2022-06-25] MEDS: Aspirin 81 MG TAB.CHEW PO (08:49)
[2022-06-25] MEDS: Gabapentin 300 MG Capsule PO ×2 (08:49→13:31)
[2022-06-25] MEDS: Juven (unflavored) Packet 1 PACKET PO (08:49)
[2022-06-25] MEDS: Pantoprazole Sodium 20 MG Tablet PO (11:14)
[2022-06-25] MEDS: Petrolatum 33% Tube 1 APPLIC TOPICAL (11:15)
[2022-06-25] MEDS: Nystatin Powder 15gm Bottle 1 APPLIC TOPICAL (11:28)
[2022-06-25 14:47] VITALS: BP 113/58; PULSE 67; RESP 16; TEMP 36.8; O2SAT 95
[2022-06-25 16:39] VITALS: BP 113/58; PULSE 67; RESP 16; TEMP 36.8; O2SAT 95
== END 2022-06-25 16:40 | disposition home health service (06) | DRG 559 ==
PROVIDERS: Admitting Provider Family Medicine Geriatric Medicine; PCP Family Medicine; Visit Provider Family Medicine Geriatric Medicine
DX: S72.001D Fracture of unspecified part of neck of right femur, subsequent encounter for closed fracture with routine healing (principal); L89.154 Pressure ulcer of sacral region, stage 4; M46.28 Osteomyelitis of vertebra, sacral and sacrococcygeal region; N39.0 Urinary tract infection, site not specified; E55.9 Vitamin D deficiency, unspecified; B35.4 Tinea corporis; G62.9 Polyneuropathy, unspecified; I48.0 Paroxysmal atrial fibrillation; M05.50 Rheumatoid polyneuropathy with rheumatoid arthritis of unspecified site; E73.9 Lactose intolerance, unspecified; K21.9 Gastro-esophageal reflux disease without esophagitis; W13.4XXD Fall from, out of or through window, subsequent encounter; I10 Essential (primary) hypertension; B95.61 Methicillin susceptible Staphylococcus aureus infection as the cause of diseases classified elsewhere; Z86.16 Personal history of COVID-19; S32.9XXD Fracture of unspecified parts of lumbosacral spine and pelvis, subsequent encounter for fracture with routine healing; S82.202D Unspecified fracture of shaft of left tibia, subsequent encounter for closed fracture with routine healing; S92.402D Displaced unspecified fracture of left great toe, subsequent encounter for fracture with routine healing; R91.8 Other nonspecific abnormal finding of lung field; Z79.899 Other long term (current) drug therapy; Z79.82 Long term (current) use of aspirin; B96.20 Unspecified Escherichia coli [E. coli] as the cause of diseases classified elsewhere; Z23 Encounter for immunization
CPT/HCPCS: 36415; 74018; 80048; 81001; 85025; 87070; 87077; 87086; 87088; 87184; 87186; 87205; 87426; 87640; 87811; 92507; 92523; 92526; 92610; 97110; 97116; 97162; 97167; 97530; 97535; 97802; J7050; J7120; A4216

== ENCOUNTER 2022-05-22 15:31 | Observation (INO) | payer MEDICARE, OTHER, SELFPAY ==
[2022-05-22] VITALS (10 sets, daily range): BP systolic 106–136; BP diastolic 55–65; PULSE 48–62; RESP 16–20; TEMP 36.3–37.9; O2SAT 94–100; BMI 23.3
--- NOTE | 2022-05-22 12:08 | HP.PCM_ITS ---
History and Physical Date of Admission: 05/22/22 HISTORY OF PRESENT ILLNESS 72 year old female with below past medical history suffered fall from second story, hospitalized for multi trauma, underwent left tibia intramedullary nail fixation, right hip anterograde intramedullary nail, complicated by encephalopathy from urinary tract infection.? She was admitted to TCU with debility, here for rehabilitation, strengthening, prior to discharge home alone.? ? She was noted to have a pressure injury left sacral area that develop ed some skin necrosis that has extended into the subcutaneous tissue and underlying muscle.? She denies fever.? She is able to get out of bed with assist and is working on strengthening and ambulation.? I was asked to evaluate this pressure injury for surgical options for treatment. PAST MEDICAL HISTORY Arthritis Atrial fibrillation COVID-19 Electrical isolation of left atrial appendage after cardiac ablation procedure for atrial fibrillation Fall in home Gastric reflux Gastritis Gastrointestinal problem GERD (gastroesophageal reflux disease) IBS (irritable bowel syndrome) Neuropathy Non-smoker Osteoarthritis Osteopenia Pressure ulcer of sacral region, stage 4 Rheumatoid arthritis Skin necrosis Transient disorientation Vision problem PAST SURGICAL HISTORY cardiac radiofrequency ablation colectomy ALLERGIES Diltiazem Procainamide Sotalol Amiodarone Flecanide Meoprolol Propafenone Tramadol Flagyl Sulfa Cipro Levaquin MEDICATIONS Probiotic acetaminophen aspirin biotin calcium cholecalciferol (vitamin D3) colestipol cyanocobalamin (vitamin B-12) cyclobenzaprine esomeprazole magnesium gabapentin lactase lidocaine 4 % topical patch metronidazole 0.75 % topical cream omega 6-nwh-kkp-fish oil capsule (Fish Oil) oxycodone sennosides-docusate sodium (Senna with Docusate Sodium) FAMILY HISTORY Arthritis Breast cancer Colon cancer Depression Myocardial infarction SOCIAL HISTORY Smoking Status:? Never smoker alcohol intake:? never substance use type:? does not use REVIEW OF SYSTEMS General - Denies fever, fatigue, and weight loss.? Has debility. Eyes - Denies cataracts and glaucoma. ENT - Denies nasal congestion and sore throat. Endocrine - Denies excessive thirst and urination. Skin - Denies suspicious lesions and skin cancer.? Has necrotic left sacral pressure sore, Stage IV. Musculoskeletal - Denies joint pain, joint stiffness, weakness of muscles and joints, back pain, and arthritis. Neuro - Denies headaches. Cardiovascular - Denies chest pain, fatigue, and shortness of breath with exertion.? Has hypertension and atrial fibrillation. Psych - Has anxiety and depression. Respiratory - Denies chronic cough and shortness of breath. Gastrointestinal - Denies nausea, vomiting, diarrhea, and constipation.? Has GERD. Hematologic - Denies abnormal bruising and bleeding. Genitourinary - Denies hematuria and urinary frequency.? Has UTI. PHYSICAL EXAMINATION General - Alert and Oriented. HEENT - PERRL. EOMI.? Throat is clear. Neck - Supple and nontender.? No cervical adenopathy. Lungs - Clear to auscultation. Heart - Regular rate and rhythm. Abdomen - Soft and nondistended. Extremities - FROM. No axillary adenopathy.? Radial pulses are palpable.? No inguinal adenopathy.? Dorsalis pedis pulses are palpable. Buttock area - On the left sacral area is a necrotic pressure sore that extends through the subcutaneous tissue to the muscle.? It is Stage IV.? Measures 6 x 4.5 x 2 cm. No purulent drainage. Tender to palpation. Neuro - CN II-XII grossly intact. Psych - Normal mood and affect. ASSESSMENT (1) Pressure ulcer of sacral region, stage 4. (2) Skin necrosis. (3) Transient disorientation. (4) Fall in home. PLAN Medical records reviewed. Labs and x-rays reviewed. Patient has developed a necrotic left sacral pressure sore that is extending to the muscle.? It is a Stage IV.? Wound care is Dakin's dressing changes. Patient needs a specialty bed such as a low air loss bed from [facility].? A wound culture was done on 05/09/22.? It showed E. coli, and Staphylococcus aureus and was treated with Keflex antibiotics. Anticipate increased metabolic demands from the necrotic pressure sore.? Will check a Prealbumin and encourage nutritional supplementation with protein to help the healing process. At the time of surgery, will start Cefepime and Doxcycline or Vancomycin. Recommend operative intervention with excision necrotic left sacral pressure sore under general anesthesia over the next few days.? I anticipate it extends down to the bone and a partial ostectomy for osteomyelitis will be performed as well.? Half the soft tissue and half the bone will be sent to Pathology for analysis to rule out carcinoma and to evaluate for osteomyelitis.? Half the soft tissue and half the bone will be sent to Microbiology for culture.? A positive culture will necessitate antibiotic therapy, possibly adjunct faculty for medical terminology IV antibiotics through a PICC line. Discussed with the patient, that the operative wound will be larger since there is a wider area of pressure injury once you get past the skin.? She voices understanding and wishes to proceed.? Postoperative wound care will be started with the VAC. The following day after surgery, will obtain a CT Pelvis to look for evidence of osteomyelitis. After discharge from TCU, she can followup at the [facility]. Once the infection has been treated and adequate excisional debridement has been done and nutrition has been maximized, we can discuss further surgical intervention with wound closure with fasciocutaneous flaps, possibly skin grafting.? Patient is ambulatory and I do not want to use a myocutaneous flap because it will affect her gait.? It may require additional physical therapy rehab. After surgery, she will remain on the MedSurg side until the next day.? Will apply the VAC the next day. After discharge home, she will need a specialty bed such as a low air loss bed. Patient was informed of the risks and complications of the procedure including alternatives to surgery.? These were discussed with the patient personally.? Patient voices understanding and wishes to proceed. Assessment & Plan Assessment/Plan (1) Pressure ulcer of sacral region, stage 4: (2) Skin necrosis: (3) Transient disorientation: (4) Fall in home:
[2022-05-22] MEDS: Lactated Ringers 1,000 ML 15 ML IV ×2 (13:05→16:57)
--- NOTE | 2022-05-22 13:30 | SOF_PTH ---
PATIENT: HILARY ULRICH LOC: [facility] U#:[id number] AGE/SX: 72/F ROOM: AR314 RE05/22/[address]: Dr. Jose Lee MD : 1950 BED: 1 DIS: 05/23/2022 SPEC #: [id number] RECD: 05/22/22 16:00 STATUS: MARY SHANE #: [id number] HERBER: 05/22/22 13:[address]: Jose Lee DEPT: SURGICAL PATHOLOGY RECD BY: Karla Stacy ENTERED: 05/23/22 07:36 SP TYPE: SOFT TISS OTHR DR: Dr. Vivian Payne DO Tissues: A - Soft tissues, NOS B - Bone of lower extremity, NOS Procedures: Decalcification bone/plaque Surgery Specimen Level IV HEADER OPERATION: Excision necrotic pressure sore stage IV PRE-OP DIAGNOSIS: Pressure ulcer of sacral region stage IV; skin necrosis TISSUE SUBMITTED: A ? Soft tissue, sacral pressure sore, left, B ? Bone, sacral pressure sore, left MICROSCOPIC DIAGNOSIS A. Skin and soft tissue of sacral region, excision: Ulceration with associated acute and chronic inflammation and granulation. B. Bone of sacral region, debridement: Consistent with chronic osteomyelitis. AM:scarlet 05/26/2022 MICROSCOPIC DESCRIPTION Slides are reviewed. GROSS DESCRIPTION A - Received in fixative is one container labeled with the patient's name and designated soft tissue, sacral pressure sore, left. The specimen consists of a piece of skin with underlying tissue measuring 7 x 5 cm and up to 2 cm in thickness. A central defect is noted measuring 4.5 x 2 cm. Supervisor Dog License Officer sections are submitted in two cassettes. B - Received in fixative is one container labeled with the patient's name and designated bone, sacral pressure sore, left. The specimen consists of multiple pieces of bone that in aggregate measure 3.5 x 2 x 0.5 cm. The entire specimen is submitted in two cassettes after decalcification. / SJ:scarlet TC:2 CPT: 77069 x2, [id number]
[2022-05-22] MEDS: Lidocaine 1% (30 ml sdv) 30 ML Vial (15:00)
--- NOTE | 2022-05-22 15:23 | OP.PCM_ITS ---
Problems Associated Problem List Diagnoses (1) Pressure ulcer of sacral region, stage 4: (2) Skin necrosis: (3) Transient disorientation: (4) Fall in home: Report of Operation Date of Procedure: 05/22/22 Pre-Operative Diagnosis: 1. Necrotic left sacral pressure sore, Stage IV. 2. Skin necrosis. 3. Transient disorientation. 4. Fall in home. Post-Operative Diagnosis: Same. Surgery/Procedure Performed:: Excision necrotic left sacral pressure sore, Stage IV, with partial ostectomy for osteomyelitis. Description of Surgical Findings:: 72 year old female with below past medical history suffered fall from second story, hospitalized for multi trauma, underwent left tibia intramedullary nail fixation, right hip anterograde intramedullary nail, complicated by encephalopathy from urinary tract infection.? She was admitted to TCU with debility, here for rehabilitation, strengthening, prior to discharge home alone.? ? She was noted to have a pressure injury left sacral area that developed some skin necrosis that has extended into the subcutaneous tissue and underlying muscle.? She denies fever.? She is able to get out of bed with assist and is working on strengthening and ambulation.? I was asked to evaluate this pressure injury for surgical options for treatment. Patient was informed of the risks and complications of the procedure including alternatives to surgery. These were discussed with the patient personally. Patient voices understanding and wishes to proceed. Dimensions of sacral wound - 8 x 7 x 2 cm. Surgeon: Jose Lee MD vending machine mechanic: None Type of Anesthesia: General Anesthesiologist: Mirza Marley MD and Yury Lester CRNA. Specimen's removed: 1. Necrotic left sacral pressure sore, Stage IV, soft tissue to Pathology and Microbiology. 2. Necrotic left sacral pressure sore, Stage IV, bone to Pathology and Microbiology. Drains: None. Estimated Blood Loss (mL): 250. Description of Procedure: Patient was taken to OR in supine position and was placed under general anesthesia.? She was then placed in the prone position.? The sacral and buttock areas were prepped and draped in the usual fashion.? SCD's were placed for DVT prophylaxis.? ? Perioperative antibiotics were given intravenously.? Using xylocaine with epinephrine, the necrotic left sacral pressure sore was infiltrated.? After waiting 5 minutes for the anesthetic to take effect, I proceeded with excision of this pressure sore down into the subcutaneous tissue until muscle was seen.?There was some necrotic gluteus muscle that was included in the excision and extended to the bone.? I then proceeded with a partial ostectomy for osteomyelitis.? I used a pair of rongeurs and excised bone in several different areas to get a medical center representative sample of bone.? The bone was not soft and friable when it was excised. ? A rasp was then used to smooth out the bony edges.? Hemostasis was obtained with electrocautery.? There was a fair amount of blood loss during the excision, about 250 ml.? The wound was irrigated with saline.? The size of the left sacral defect after excision of this sacral pressure sore was 8 x 7 x 2 cm or 56 cm2. ?? Half the soft tissue and half the bone will be sent to Pathology for analysis to rule out carcinoma and to evaluate for osteomyelitis.? Half the soft tissue and half the bone will be sent to Microbiology for culture. ? A positive culture may necessitate antibiotic modification.? The wound was dressed with Mepitel nonadherent dressing followed by Kerlix gauze and Betadine and then dry Kerlix gauze followed by ABD compression dressing.? Patient tolerated the procedure well and was sent to PACU in satisfactory condition.? Patient will be sent upstairs for continued postop care. Will apply the VAC tomorrow before transfer back to TCU. When she is ready to be discharged from TCU, will followup at the Wound Center. Grafts/Implants Used: None. Procedure Start Time: 14:43 Procedure Stop Time: 15:17 Complications None. Admit VTE Documentation VTE Present on Admission: No VTE Mechan Device Prophylaxis: SCD's VTE Pharm Prophylaxis ordered?: No Addendum Addendum: Surgery Charges CPT - 22481 ICD-10 - L89.154, I96, R41.0, W19.xxxA
[2022-05-22] MEDS: oxyCODONE 5 MG Tablet PO (17:26)
[2022-05-22] MEDS: Juven (unflavored) Packet 1 PACKET PO (17:26)
--- NOTE | 2022-05-22 17:44 | NURSING ---
pt on specialty bed
[2022-05-22] MEDS: Ceftriaxone 1 GM/50 ML BAG IV (21:08)
[2022-05-22] MEDS: Calcium Carbonate 500 MG Tablet PO (22:21)
[2022-05-22] MEDS: cycloBENZAPRine HCl 5 MG TABLET PO (22:21)
[2022-05-22] MEDS: Gabapentin 100 MG Capsule PO (22:21)
[2022-05-22] MEDS: Senna/Docusate Sodium 1 Tablet PO (22:24)
[2022-05-22] MEDS: Acetaminophen 500 MG Tablet 1000 MG PO (22:29)
[2022-05-23 02:32] VITALS: BP 116/60; PULSE 62; RESP 18; TEMP 37.4; O2SAT 93
[2022-05-23] MEDS: oxyCODONE 5 MG Tablet PO (02:33)
[2022-05-23 06:05] VITALS: BP 105/51; PULSE 53; RESP 16; TEMP 36.7; O2SAT 95
[2022-05-23] MEDS: Gabapentin 100 MG Capsule PO (06:10)
[2022-05-23] MEDS: Calcium Carbonate 500 MG Tablet PO (06:10)
[2022-05-23] MEDS: cycloBENZAPRine HCl 5 MG TABLET PO (06:10)
[2022-05-23] MEDS: Acetaminophen 500 MG Tablet 1000 MG PO (06:15)
[2022-05-23 07:44] VITALS: BP 105/50; PULSE 53; RESP 16; TEMP 36.5; O2SAT 95
[2022-05-23 08:39] LABS: Prealbumin 12.8 mg/dL (20.0-40.0)
[2022-05-23] MEDS: Pantoprazole Sodium 20 MG Tablet PO (08:44)
[2022-05-23] MEDS: Juven (unflavored) Packet 1 PACKET PO (08:44)
[2022-05-23] MEDS: Colestipol 1 GM TABLET PO (08:44)
[2022-05-23] MEDS: Senna/Docusate Sodium 1 Tablet PO (08:45)
[2022-05-23] MEDS: Cholecalciferol (VIT D3) 25 MCG TABLET (1,000 UNITS) 50 MCG PO (08:45)
[2022-05-23] MEDS: Lidocaine 5% Patch 1 PATCH TOPICAL (08:50)
[2022-05-23] MEDS: Ceftriaxone 1 GM/50 ML BAG IV (08:55)
[2022-05-23 09:25] LABS: Hematocrit 33.6 % (37-47); Hemoglobin 10.2 g/dL (12.0-15.0); Mean Corp Hgb Conc 30.4 g/dL (32-36); Mean Corpuscular Hgb 28.9 pg (27.0-32.0); Mean Corpuscular Volume 95.2 fL (81-99); Mean Platelet Vol. 9.3 fl (6.2-12.0); Platelet Count 406 K/mm3 (150-450); RBC Distribution Width CV 14.7 % (11.6-14.6); RBC Distribution Width SD 51.5 fl (35.1-43.9); Red Blood Count 3.53 M/mm3 (4.2-5.4); White Blood Count 10.4 K/mm3 (4.4-11.0)
[2022-05-23 09:31] LABS: Anion Gap 6 (5-15); BUN 10 mg/dL (7-18); BUN/Creat Ratio 20.2 RATIO (10-20); Calcium,Total 8.7 mg/dL (8.5-10.1); Chloride 102 mmol/L (98-107); Creatinine, Serum 0.49 mg/dL (0.55-1.02); EST Glomerular Filtration Rate 130 mL/min (>60); Est Glom Filt Rate - Afr Amer 158 mL/min (>60); Glucose 96 mg/dL (74-106); Sodium Level 137 mmol/L (136-145)
--- NOTE | 2022-05-23 09:39 | WOUNDNOTE ---
wound photo: sacrum
--- NOTE | 2022-05-23 10:17 | PCM.TXEXTCAR ---
Diet Diet Order/Speech Therapy: 05/22/22 15:34 Diet: Regular - General Wound(s) SACRAL AREA: Wound Type: shear/pressure injury Dressing Change: applied KCI wound VAC Suggestions for Active Care Change Position every (hours): 2 Therapies Weight Bearing: Full weight bearing Problem/Diagnosis (1) Pressure ulcer of sacral region, stage 4: Status: Chronic Code(s): L89.154 - Pressure ulcer of sacral region, stage 4 Comment: necrotic left sacral pressure sore (2) Skin necrosis: Status: Chronic Code(s): I96 - Gangrene, not elsewhere classified Comment: necrotic left sacral pressure sore, Stage IV (3) Transient disorientation: Status: Acute Code(s): R41.0 - Disorientation, unspecified (4) Fall in home: Status: Chronic Code(s): W19.XXXA - Unspecified fall, initial encounter; Y92.009 - Unspecified place in unspecified non-institutional (private) residence as the place of occurrence of the external cause Comment: FELL OUT OF 2ND STORY WINDOW AT HER HOUSE Plan Postop day #1 Patient sitting up in bed. She states her pain is currently controlled. The wound VAC was placed today at 150 mmHg. The dressing will be changed 3 times per week. Upon discharge from TCU, she will follow up at the wound center. Operative cultures are pending. Urine preliminary culture is GNR non career guidance technician. Patient has developed a rash on her right foot and on her abdomen. The rash on her foot has 2 hives. The rash on her abdomen is a fine, pink, prickly rash that is itchy. It is not the same rash that is on her foot. The rash developed sometime over night. Unsure of the cause of the rash. Patient has multiple antibiotic allergies. Discussed with patient what her allergy to Levaquin was and she states that she gets muscle pain from it. We will start her on Levaquin and monitor her closely. Hgb 10.2, Hct 33.6, Plt count 406. Sodium 137, K+ 4.0, BUN 20.2. Creat 0.49, Prealbumin 12.8. Encourage protien intake to help with wound healing. Will continue Tommy BID as supplement. She is to be transferred back to TCU today. Allergies/Procedures Done in Hospital Allergies diltiazem Allergy (Severe, Verified 05/19/22 20:57) itching and swelling procainamide Allergy (Unknown, Verified 05/19/22 20:57) Unknown metronidazole [From Flagyl] Allergy (Verified 05/19/22 20:57) Diarrhea Sulfa (Sulfonamide Antibiotics) Allergy (Verified 05/19/22 20:57) Anaphylaxis ciprofloxacin [From Cipro] Adverse Reaction (Severe, Verified 05/19/22 20:57) Other MUSCLE CRAMPS IN LEGS sotalol Adverse Reaction (Unknown, Verified 05/19/22 20:57) Lethargic amiodarone Adverse Reaction (Verified 05/19/22 20:57) Other worsens afib rvr flecainide Adverse Reaction (Verified 05/19/22 20:57) Other worsens afib rvr levofloxacin [From Levaquin] Adverse Reaction (Verified 05/19/22 20:57) PT UNSURE OF REACTION metoprolol Adverse Reaction (Verified 05/19/22 20:57) Itching propafenone [From Rythmol] Adverse Reaction (Verified 05/19/22 20:57) Other worsens afib rvr tramadol Adverse Reaction (Verified 05/19/22 20:57) Vomiting ALMOST ALL HEART MEDS Allergy (Uncoded 05/19/22 20:57) Unknown Type of Care/Length of Stay Estimated LOS: More Than 30 Days Type of Care Needed: Skilled Rehab Potential: Fair Prognosis: Fair Additional Orders/Day of Discharge Day of Discharge: 05/23/22 Discharge Plan Admission Admit Date/Time: 05/22/22 15:31 Attending Provider: Jose Lee Primary Care Provider: Vivian Payne Discharge Orders/Prescriptions Prescriptions: New levofloxacin 500 mg tablet 500 mg PO DAILY 14 Days Qty: 14 0RF Continued calcium 600 mg Capsule 600 mg PO TID lidocaine [Salonpas (lidocaine)] 4 % Adhesive Patch,Medicated 1 patch TOPICAL DAILY sennosides-docusate sodium [Senna with Docusate Sodium] 8.6-50 mg Tablet 1 tab PO BID acetaminophen 500 mg Tablet 1,000 mg PO Q6H PRN (Reason: Pain) lactase 9,000 unit Tablet 9,000 unit PO DAILY oxycodone 5 mg Capsule 5 - 10 mg PO Q6H PRN (Reason: Pain) Rx Instructions: take 5-10mg q6PRN for pain gabapentin 100 mg Capsule 100 mg PO TID colestipol 1 gram Tablet 1 g PO DAILY biotin 5,000 mcg Tablet,Disintegrating 5,000 mcg PO DAILY aspirin 81 mg Capsule 81 mg PO DAILY metronidazole 0.75 % Cream 1 applic TOPICAL DAILY esomeprazole magnesium [Nexium] 20 mg Capsule,Delayed Release(Dr/Ec) 20 mg PO DAILY cholecalciferol (vitamin D3) [Vitamin D3] 25 mcg (1,000 unit) Capsule 50 mcg PO DAILY cyclobenzaprine 5 mg Tablet 5 mg PO TID omega 8-omn-eka-fish oil [Fish Oil] 300-1,000 mg Capsule 2 cap PO DAILY cyanocobalamin (vitamin B-12) [Vitamin B-12] 5,000 mcg Tablet, Sublingual 5,000 mcg SUBLINGUAL DAILY Probiotic 1 cap PO/SL DAILY pantoprazole [Protonix] 20 mg Tablet,Delayed Release (Dr/Ec) 20 mg PO DAILY Referrals / Follow Up: Vivian Payne DO [Primary Care Provider] - Magda Baker NP, WEB OPERATIONS SPECIALIST-C [Med Staff - Adv Practice Prof] - (Follow up at the wound healing center after discharge from TCU) Disposition Disposition (needs filled in before D/C Order can be placed): Residential Facility
== END 2022-05-23 11:30 | disposition skilled nursing facility (03) ==
LOC: SDC 05-23 08:43 → MS3 05-23 08:43
PROVIDERS: Nurse Practitioner Family; Admitting Provider Surgery; PCP Family Medicine; Referring Provider Surgery; Visit Provider Surgery
PROC: (CPT 15937; principal; 2022-05-22 13:15)
DX: L89.154 Pressure ulcer of sacral region, stage 4 (principal); I96 Gangrene, not elsewhere classified; M06.9 Rheumatoid arthritis, unspecified; I48.0 Paroxysmal atrial fibrillation; K58.9 Irritable bowel syndrome, unspecified; R41.0 Disorientation, unspecified; Z86.16 Personal history of COVID-19; M19.90 Unspecified osteoarthritis, unspecified site; K21.9 Gastro-esophageal reflux disease without esophagitis; Z79.899 Other long term (current) drug therapy; Z79.82 Long term (current) use of aspirin
CPT/HCPCS: 15937; 01120; 36415; 80048; 84134; 85027; 87015; 87070; 87075; 87077; 87102; 87116; 87176; 87186; 87205; 87206; 88305; 88307; 88311; 96365; 96366; 99218; 99251; 99252; J7050; J7120; G0378; G0463; J0696

== ENCOUNTER → 2022-07-25 | Outpatient (CLI) | payer MEDICARE, OTHER, SELFPAY ==
[2022-07-25 10:35] LABS: ALB/GLOB Ratio 0.8 RATIO (0.9-2.4); AST(SGOT) 14 U/L (15-37); Alanine Aminotransfer ALT/SGPT 18 U/L (13-56); Albumin, Serum 3.4 g/dL (3.2-5.0); Alkaline Phosphatase 152 U/L (45-117); Anion Gap 8 (5-15); BUN 22 mg/dL (7-18); BUN/Creat Ratio 37.1 RATIO (10-20); Calcium,Total 9.6 mg/dL (8.5-10.1); Chloride 102 mmol/L (98-107); Creatinine, Serum 0.59 mg/dL (0.55-1.02); EST Glomerular Filtration Rate 105 mL/min (>60); Est Glom Filt Rate - Afr Amer 128 mL/min (>60); Globulin 4.3 g/dL (2.2-4.2); Glucose 96 mg/dL (74-106); Potassium 4.1 mmol/L (3.5-5.1); Protein, Total 7.7 g/dL (6.4-8.2); Sodium Level 137 mmol/L (136-145)
== END | disposition home or self-care (01) ==
LOC: LAB 09:23
PROVIDERS: PCP Family Medicine; Visit Provider Nurse Practitioner Family
DX: I96 Gangrene, not elsewhere classified (principal); L89.154 Pressure ulcer of sacral region, stage 4
CPT/HCPCS: 36415; 80053

== ENCOUNTER 2022-08-02 09:30 | Outpatient (RCR) | payer MEDICARE, OTHER, SELFPAY ==
[2022-07-12 09:44] VITALS: BP 135/80; PULSE 85; TEMP 36.1
--- NOTE | 2022-07-12 13:36 | PCM.WC.HP ---
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 Surgery 05/22/[address] Lee for Excision necrotic left sacral pressure sore, Stage IV, with partial ostectomy for osteomyelitis. Operative tissue cultures positive for Eschericha coli, Streptococcus sanguinis, Corynebacterium amycolatum, Provotella oralis, Anaerobic cocci, and most recently Damaris albicans and Aspirgillus fumigatus. Operative bone culture positive for Provotella disiens and Damaris albicans. She was treated with Levaquin and Augmentin. She developed muscle pain so the Levaquin was switched to Doxycycline. The fungal cultures just recently came back and we will start her on Diflucan. Wound care is wound VAC at 150 mmHg to be changed 3 times per week. She has home health to assist with the dressing changes. Today she denies fever, chills, nausea or vomiting. She states she is doing well at home. Progress of Wound: Left sacral ulcer is beefy pink into the muscle with bone exposure. She states she just finished her antibiotics yesterday. She states that she still has sacral pain, especially at night. She is complaining of itching down there while pointing to perineal area. She states that the antibiotics have given her a yeast infection. [facility] Medical History Arthritis Atrial fibrillation Cardiology follow-up encounter COVID-19 Electrical isolation of left atrial appendage after cardiac ablation procedure for atrial fibrillation Fall in home Gastric reflux Gastritis Gastrointestinal problem GERD (gastroesophageal reflux disease) GERD (gastroesophageal reflux disease) History of atrial fibrillation History of echocardiogram History of Holter monitoring History of IBS IBS (irritable bowel syndrome) Irregular heart beat Neuropathy Non-smoker Normal stress echocardiogram Osteoarthritis Osteopenia Paroxysmal atrial fibrillation Post-menopausal Pressure ulcer of sacral region, stage 4 Rheumatoid arthritis Seasonal allergies Skin necrosis Transient disorientation Vision problem Home Medications Probiotic 1 cap PO/SL DAILY digestion 04/17/22 [History Last Taken Unknown] aspirin 81 mg capsule 81 mg PO DAILY blood thinner 04/17/22 [History Last Taken Unknown] acetaminophen 500 mg tablet 1,000 mg PO Q8 #0 tabs 06/20/22 [Rx Last Taken Unknown] arginine 7 gram-glutam 7 gram-CaHMB 1.5 [id number]-min oral pwd pkt (Tommy (with collagen)) 1 packet PO BIDCM 30 days #60 ea 06/20/22 [Rx Last Taken Unknown] gabapentin 300 mg capsule 300 mg PO TIDCM 30 days #90 caps 06/20/22 [Rx Last Taken Unknown] oxycodone 5 mg tablet 5 - 10 mg PO Q4H PRN Pain 1-10 7 days #35 tabs 06/20/22 [Rx Last Taken Unknown] pantoprazole 20 mg tablet,delayed release 20 mg PO Q48 30 days #15 tabs 06/20/22 [Rx Last Taken Unknown] oxycodone-acetaminophen 5 mg-325 mg tablet (Percocet) 1 tab PO BID PRN pain (scale score 7-10) 7 days #14 tabs 07/12/22 [Rx Last Taken Unknown] fluconazole 200 mg tablet (Diflucan) 400 mg PO DAILY damaris skin and bone infection 21 days #42 tabs 07/15/22 [Rx Last Taken Unknown] Allergy/AdvReac Type Severity Reaction Status Date / Time diltiazem Allergy Severe itching Verified 05/19/22 20:57 and swelling procainamide Allergy Unknown Unknown Verified 05/19/22 20:57 metronidazole [From Flagyl] Allergy Diarrhea Verified 05/19/22 20:57 Sulfa (Sulfonamide Allergy Anaphylaxis Verified 05/19/22 20:57 Antibiotics) ciprofloxacin [From Cipro] AdvReac Severe Other Verified 05/19/22 20:57 sotalol AdvReac Unknown Lethargic Verified 05/19/22 20:57 amiodarone AdvReac Other Verified 05/19/22 20:57 flecainide AdvReac Other Verified 05/19/22 20:57 levofloxacin [From Levaquin] AdvReac PT UNSURE Verified 05/19/22 20:57 OF REACTION metoprolol AdvReac Itching Verified 05/19/22 20:57 propafenone [From Rythmol] AdvReac Other Verified 05/19/22 20:57 tramadol AdvReac Vomiting Verified 05/19/22 20:57 ALMOST ALL HEART MEDS Allergy Unknown Uncoded 05/19/22 20:57 Family History (Reviewed 07/15/22 @ 22:36 by Magda Baker PARTNERSHIP DEVELOPMENT MANAGER, PARTNERSHIP DEVELOPMENT MANAGER-C) Other Arthritis Breast cancer Colon cancer Depression Myocardial infarction Severe allergy Surgical History (Reviewed 07/15/22 @ 22:36 by Magda Baker PARTNERSHIP DEVELOPMENT MANAGER, PARTNERSHIP DEVELOPMENT MANAGER-C) History of cardiac radiofrequency ablation Hx of colectomy Social History (Reviewed 07/15/22 @ 22:36 by Magda Baker PARTNERSHIP DEVELOPMENT MANAGER, PARTNERSHIP DEVELOPMENT MANAGER-C) household members: none Smoking Status: Never smoker alcohol intake: never substance use type: does not use ROS Constitutional Constitutional: Reports as per HPI Eyes Eyes: Reports requires corrective lenses ENT HEENT: Reports none Cardiovascular Cardiovascular: Denies chest pain, dyspnea, edema or nausea Respiratory/Chest Respiratory/Chest: Denies dyspnea Gastrointestinal Gastrointestinal: Denies constipation or diarrhea Genitourinary Genitourinary: Reports none Musculoskeletal Musculoskeletal: Reports as per HPI Integumentary Integumentary: Reports skin ulcer Neurologic Neurologic: Reports as per HPI Psychiatric Psychiatric: Reports as per HPI Endocrine Endocrinology: Reports none Vital Signs Vital Signs Vital Signs: 07/12/22 09:44 Temperature 97 F L Temperature Source Temporal Pulse Rate 85 Blood Pressure 135/80 H Blood Pressure Mean 98 Blood Pressure Source Monitor Blood Pressure Position Sitting Blood Pressure Location Left Arm Weight Weight: 124 lb Body Mass Index (BMI) 20.0 Physical Exam Const alert, oriented x3 and no apparent distress HEENT normocephalic Eyes General Eye: normal appearance of both eyes Neck full ROM Lymph Lymphatic: no lymphedema noted Resp normal respiratory effort, normal air movement and clear to auscultation bilaterally Cardio regular rate and regular rhythm GI soft to palpation Back/Spine normal ROM Extremity normal capillary refill Skin Wound Narrative: Left sacral ulcer into the muscle is beefy pink, there is still bone exposure. Mahnaz wound has small amount of erythema, but it is improved compared to how it previously looked during her hospitilization. Neuro oriented x3 Psych mental status grossly normal Appearance: grossly normal Debridement Note Debridement Note Wound debrided: Sacral ulcer Laterality: Left Wound Grade/Stage: Stage IV Type of Debridement: Excisional debridement Anesthesia Used: 4% Lidocaine Solution and 5% Lidocaine Gel Depth: Down to and including healthy tissue, in the subcutaneous layer and to muscle Percentage of wound debrided: 100 Instrument Used: 7mm curette Tissue Removed: Devitalized tissue and slough into the muscle with bone exposure Severity: Fat Layer Exposed Amount of bleeding with debridement: Mild Bleeding Controlled with: Pressure and Compression and gauze Debridement Free Text: Debridement into the muscle, there is bone exposed but no bone was debrided. Post-Debridement Measurements and Additional Note: Post-Debridement Measurements/Treatment - Nurse 1 - General Ulcer Assessment Start: 07/12/22 09:40 Freq: Status: Active Protocol: JUSTIN Activity Type Activity Date Activity User E-sign Co-sign Detail Recorded Client Recorded Date Recorded By Document 07/12/22 09:44 FAINA [id number] 07/12/22 10:04 FAINA 07/12/22 09:44 - Today's Visit Information Type of service Initial Visit Arrival Mode Ambulatory, Walker Transfer Assistance None Patient Identification Verified (Name & Yes ) Patient Requires Transmission-Based No Precautions Height and Weight Height 5 ft 6 in Weight 124 lb Weight in Pounds 124.0 lbs Body Mass Index (BMI) 20.0 BMI Classification Normal BSA - Maykel 1.63 Vital Signs Temperature (97.8 F-99.1 F) 97 F L Temperature Source Temporal Pulse Rate (60-100) 85 Pulse Location Monitor Respiratory rate source Observation Blood Pressure (90/60-120/80) 135/80 H Blood Pressure Mean 98 Source Monitor Position Sitting Blood Pressure Location Left Arm Pain Scale: 0-10 Numeric Is Patient Pain Free? No sacral -Description Aching -Intensity 7 -Duration (hours) Acute -Pain Aggravating Factors Changing Position -Alleviating Factors/Interventions Medication -Effectiveness of Alleviating Factor/ Moderately Intervention effective Communication Assessment Preferred language [place] Aircraft Detail Draftsperson Required No Able to Read Yes Able to Write Yes Communication Tools None Caregiver Communication Skills No Impairment Impairment Right Hearing Abillity Normal Left Hearing Abillity Normal Visual Assistive Devices Glasses Teaching Assessment Preferences Verbal,Written, Demonstration Barriers to Learning None Readiness To Learn Good Willingness to Engage in Self Management Med Activies Readiness to Engage in Self Management Med Activities Anxiety Level Calm Cooperation Cooperative Perception Coherent Interest in Health Problem Asks Questions Education Importance Acknowledges Need Does Patient Smoke tobacco or other No substances Smoking Status Never smoker Is Patient Diabetic No Functional Assessment Recent Decline in Ability to Perform Denies Any Declines Culture/Confucianist/Cavalry Officer Cultural/Confucianist Needs that may affect No Treatment Plan Would you allow our hospital bed laborer to No meet you for the purpose of spiritual/ emotional support? Cavalry Officer to contact place of confucianist No Teaching: Wound Center *Welcome to the Wound Center -Person Taught Patient -Teaching Method Discussion -Response to teaching Verbalize understanding - Nurse 1 - General Ulcer Measurement Start: 07/12/22 09:40 Freq: Status: Active Protocol: Activity Type Activity Date Activity User E-sign Co-sign Detail Recorded Client Recorded Date Recorded By Document 07/12/22 09:44 [id number] 07/12/22 10:04 RB 07/12/22 09:44 Wound Center Nurse 1 1. sacral -Combined with other wound No -Current Size (cm) - Length 6 -Current Size (cm) - Width 6 -Current Size (cm) - Depth 1.2 -Total Square Cm 36 -Undermining/Tunneling Yes -Undermining/Tunneling Starts (O'clock 8 ) -Undermining/Tunneling Ends (O'clock) 5 -Maximum Distance (cm) 2.2 -Exudate Amt Large -Exudate Type Serosanguineous -Wound Margin Thickened & Rolled Under -Granulation Amt Medium (34-66%) -Granulation Quality [place] -Slough/Fibrin Yes -Necrosis Amt Medium (34-66%) -Necrotic Tissue Type Adherent Slough -Structure Exposed N/A -Texture (Mahnaz-wound Skin Appearance) Assessed -Moisture (Mahnaz-wound Skin Appearance) Maceration -Color (Mahnaz-wound Skin Appearance) Assessed -Temperature (Mahnaz-wound Skin No Abnormality Appearance) (Pt Warm) -Tenderness on Palpation (Mahnaz-wound No Skin Appearance) -Ulcer Cleansing Wound Cleanser -Foul Odor after Cleansing No -Anesthetic Used 4% Lidocaine Solution - Nurse 2 - General Ulcer CM Notes Start: 07/12/22 09:40 Freq: Status: Active Protocol: Activity Type Activity Date Activity User E-sign Co-sign Detail Recorded Client Recorded Date Recorded By Document 07/12/22 10:20 HUMERA [id number] 07/12/22 10:23 HUMERA 07/12/22 10:20 Wound Center Nurse 2 -Time 10:20 -Correct Patient Yes -Correct Side, Site, Position Yes -Correct Procedure Yes -Procedure Performed Yes -Type of Procedure Debridement -Clinical Debridement Muscle / Fascia -Tissue Removed Muscle,Fascia -Post Debridement (cm) - Length 6.1 -Post Debridement (cm) - Width 5.2 -Post Debridement (cm) - Depth 1.1 -Total Square (Post) (cm) 31.72 -Area of Debridement (cm) - Length 6.1 -Area of Debridement (cm) - Width 5.2 -Total Square (Area) (cm) 31.72 -Tunneling No -Undermining/Tunneling Yes -Undermining/Tunneling Starts (O'clock 1 ) -Undermining/Tunneling Ends (O'clock) 4 -Maximum Distance (cm) 2.0 -Circular Undermining No -Wound/Ulcer Outcome Not Healed -Ulcer Cleansing Rinsed/ Irrigated with Saline -Foul Odor after Cleansing No -Bioengineered Tissue No -Bleeding Controlled with Pressure -Treatment Response Procedure Tolerated Well -Offloading No -Pressure Reduction Specialty bed -Debridement - Muscle / Fascia, 1st Yes 20sq cm -Debridement, Muscle/Fascia, ea addt'l 1 20sq cm or part thereof Pain Scale: 0-10 Numeric Is Patient Pain Free? Yes - Nurse 3 - General Ulcer D/C NN Start: 07/12/22 09:40 Freq: Status: Active Protocol: Activity Type Activity Date Activity User E-sign Co-sign Detail Recorded Client Recorded Date Recorded By Document 07/12/22 12:10 [id number] 07/12/22 12:11 RB 07/12/22 12:10 Wound Care Center Nurse 3 1. sacral -Ulcer Cleansing Wound Cleanser -Negative Pressure Wound Therapy Continue -Setting (mmHg) 150 -Negative Pressure is Continuous -NPWT Application Charge NPWT & Debridement (nc ) Mahnaz-Wound Care Barrier Treatment Response Procedure Tolerated Well Pain Scale: 0-10 Numeric Is Patient Pain Free? No WC - Visit Discharge Discharge Condition Stable Ambulatory Status Walker Transportation Private Auto Medication Reconcilliation completed & No provided to patient/care provider Clinical Summary of Care Provided Yes Charges/Coding Procedures Integumentary [id number]: [id number] Global Visit Assessment/Plan Assessment/Plan (1) Pressure ulcer of sacral region, stage 4: CODE(S): L89.154 - Pressure ulcer of sacral region, stage 4 (2) Rheumatoid arthritis: CODE(S): M06.9 - Rheumatoid arthritis, unspecified (3) Debility: CODE(S): R53.81 - Other malaise (4) Other acute postprocedural pain: CODE(S): G89.18 - Other acute postprocedural pain PLAN: Plan Patient evaluated at the wound center today. Wound care - Wound VAC at 150 mmHg to be changed 3 times per week. At the time of the dressing changes, the ulcer and mahnaz wound should be washed with soap and water. For her pain will order Percocet (14) tabs, BID PRN. PMDP reviewd. Will send in Diflucan for her positive fungal cultures. This should also help with her vaginal yeast infection. Will order CMP because starting her on the Diflucan. Follow one week. Call or come in sooner if develop any questions or concerns.
[2022-07-19 09:31] VITALS: BP 134/62; PULSE 94; RESP 18; TEMP 36.9
--- NOTE | 2022-07-19 10:43 | PN.PCM_ITS ---
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 Surgery 05/22/[address] Lee for Excision necrotic left sacral pressure sore, Stage IV, with partial ostectomy for osteomyelitis. Operative tissue cultures positive for Eschericha coli, Streptococcus sanguinis, Corynebacterium amycolatum, Provotella oralis, Anaerobic cocci, and most recently Fernanda albicans and Aspirgillus fumigatus. Operative bone culture positive for Provotella disiens and Fernanda albicans. She was treated with Levaquin and Augmentin. She developed muscle pain so the Levaquin was switched to Doxycycline. The fungal cultures just recently came back and we will start her on Diflucan. Wound care is wound VAC at 150 mmHg to be changed 3 times per week. She has home health to assist with the dressing changes. Today she denies fever, chills, nausea or vomiting. She states she is doing well at home. Progress of Wound: Left sacral ulcer is beefy pink into the muscle with bone exposure, the bone is almost covered. The ulcer is showing improvement. Patient is complaining about having issues hearing. She states her right ear has been bad but all of a sudden she is not able to hear out of her left ear either. Objective Data Objective Data Vital Signs: Vital Signs Temp Pulse Resp BP 98.4 F 94 18 134/62 H 07/19/22 09:31 07/19/22 09:31 07/19/22 09:31 07/19/22 09:31 Weight: 124 lb Body Mass Index (BMI) 20.0 Charges/Coding Visit Charges Office Visits / Consults: 64416 OV L2 Est (24 modifier) Procedures Auditory CF Procedures 69xxx-69xxx: 98100 Remove impacted ear wax uni (50 modifier) Physical Exam Const alert, oriented x3 and no apparent distress General Appearance: cooperative HEENT normocephalic HEENT Narrative: Bilateral cerumen impaction of thick, sticky cerumen. Unable to visualize TM. With an ear curette, able to remove a large amount of sticky cerumen from the left ear canal. Able to visualize left TM which is clear. Removed moderate amount of sticky, moist cerumen from right ear canal with curette. Right TM clear. Patient tolerated procedure well. Lymph Lymphatic: no lymphedema noted Resp normal respiratory effort Cardio regular rate Extremity normal capillary refill Skin Wound Narrative: sacral ulcer is beefy pink into the muscle with small amount of bone exposure. It is smaller in size. Neuro CN's II-XII intact bilaterally Psych affect normal Debridement Note Debridement Note Wound debrided: Sacral ulcer Laterality: Left Wound Grade/Stage: Stage IV Type of Debridement: Excisional debridement Anesthesia Used: 4% Lidocaine Solution and 5% Lidocaine Gel Depth: Down to and including healthy tissue, in the subcutaneous layer and to muscle Percentage of wound debrided: 100 Instrument Used: 7mm curette Tissue Removed: Devitalized tissue and slough into the muscle with bone exposure Severity: Fat Layer Exposed Amount of bleeding with debridement: Mild Bleeding Controlled with: Pressure and Compression and gauze Debridement Free Text: Debridement into the muscle, there is bone exposed but no bone was debrided. Post-Debridement Measurements and Additional Note: Post-Debridement Measurements/Treatment - Nurse 1 - General Ulcer Assessment Start: 07/12/22 09:40 Freq: Status: Active Protocol: BRADEN.SAVANNAH Activity Type Activity Date Activity User E-sign Co-sign Detail Recorded Client Recorded Date Recorded By Document 07/12/22 09:44 [id number] 07/12/22 10:04 RB Document 07/19/22 09:31 RB [id number] 07/19/22 09:39 RB 07/12/22 07/19/22 09:44 09:31 - Today's Visit Information Type of service Initial Visit Follow-up Visit (Physician/CONTINUITY TESTER ) Arrival Mode Ambulatory, Ambulatory, Walker Walker Transfer Assistance None None Patient Identification Verified (Name & Yes Yes ) Patient Requires Transmission-Based No No Precautions Height and Weight Height 5 ft 6 in Weight 124 lb Weight in Pounds 124.0 lbs Body Mass Index (BMI) 20.0 20.0 BMI Classification Normal Normal BSA - Maykel 1.63 Vital Signs Temperature (97.8 F-99.1 F) 97 F L 98.4 F Temperature Source Temporal Temporal Pulse Rate (60-100) 85 94 Pulse Location Monitor Monitor Respiratory Rate (12-18) 18 Respiratory rate source Observation Observation Blood Pressure (90/60-120/80) 135/80 H 134/62 H Blood Pressure Mean (mm Hg) 98 86 Source Monitor Monitor Position Sitting Semi-Fowlers Blood Pressure Location Left Arm Left Arm History Since Last Visit- (Skip if this is Patient's initial visit) Have you changed medications since your No last visit? Any new allergies or adverse reactions No Had a fall/change in ADL's that may No increase risk of falls Signs or symptoms of abuse and/or No neglect since last visit Have you been in the hospital since your No last visit? Has dressing in place as prescribed Yes Has compression in place as prescribed No Has offloadiing in place as prescribed Yes Experienced any changes in pain level or No management Pain Scale: 0-10 Numeric Is Patient Pain Free? No Yes sacral -Description Aching -Intensity 7 -Duration (hours) Acute -Pain Aggravating Factors Changing Position -Alleviating Factors/Interventions Medication -Effectiveness of Alleviating Factor/ Moderately Intervention effective Communication Assessment Preferred language [place] Senior Sales Associate Required No Able to Read Yes Able to Write Yes Communication Tools None Caregiver Communication Skills No Impairment Impairment Right Hearing Abillity Normal Left Hearing Abillity Normal Visual Assistive Devices Glasses Teaching Assessment Preferences Verbal,Written, Demonstration Barriers to Learning None Readiness To Learn Good Willingness to Engage in Self Management Med Activies Readiness to Engage in Self Management Med Activities Anxiety Level Calm Cooperation Cooperative Perception Coherent Interest in Health Problem Asks Questions Education Importance Acknowledges Need Does Patient Smoke tobacco or other No substances Smoking Status Never smoker Is Patient Diabetic No Functional Assessment Recent Decline in Ability to Perform Denies Any Declines Culture/Synagogue/Jacquard Twine Polisher Operator Cultural/Synagogue Needs that may affect No Treatment Plan Would you allow our hospital cake wrapper to No meet you for the purpose of spiritual/ emotional support? Jacquard Twine Polisher Operator to contact place of uatsdin No Teaching: Wound Center *Welcome to the Wound Center -Person Taught Patient -Teaching Method Discussion -Response to teaching Verbalize understanding WC - Nurse 1 - General Ulcer Measurement Start: 07/12/22 09:40 Freq: Status: Active Protocol: Activity Type Activity Date Activity User E-sign Co-sign Detail Recorded Client Recorded Date Recorded By Document 07/12/22 09:44 RB [id number] 07/12/22 10:04 RB Document 07/19/22 09:31 RB [id number] 07/19/22 09:39 RB 07/12/22 07/19/22 09:44 09:31 Wound Center Nurse 1 1. sacral -Combined with other wound No No -Current Size (cm) - Length 6 5.5 -Current Size (cm) - Width 6 4.6 -Current Size (cm) - Depth 1.2 1.1 -Total Square Cm 36 25.30 -Photo Taken Yes -Tunneling No -Undermining/Tunneling Yes Yes -Undermining/Tunneling Starts (O'clock 8 7 ) -Undermining/Tunneling Ends (O'clock) 5 4 -Maximum Distance (cm) 2.2 1.8 -Circular Undermining No -Exudate Amt Large Large -Exudate Type Serosanguineous Serosanguineous -Wound Margin Thickened & Distinct, Rolled Under Outline Attached -Granulation Amt Medium (34-66%) Medium (34-66%) -Granulation Quality [place],Red -Slough/Fibrin Yes Yes -Necrosis Amt Medium (34-66%) None Present (0 %) -Necrotic Tissue Type Adherent Slough Adherent Slough -Structure Exposed N/A N/A -Texture (Mahnaz-wound Skin Appearance) Assessed Assessed, Scarring -Moisture (Mahnaz-wound Skin Appearance) Maceration Assessed -Color (Mahnaz-wound Skin Appearance) Assessed Assessed -Temperature (Mahnaz-wound Skin No Abnormality No Abnormality Appearance) (Pt Warm) (Pt Warm) -Tenderness on Palpation (Mahnaz-wound No No Skin Appearance) -Ulcer Cleansing Wound Cleanser Wound Cleanser -Foul Odor after Cleansing No No -Anesthetic Used 4% Lidocaine 4% Lidocaine Solution Solution WC - Nurse 2 - General Ulcer CM Notes Start: 07/12/22 09:40 Freq: Status: Active Protocol: Activity Type Activity Date Activity User E-sign Co-sign Detail Recorded Client Recorded Date Recorded By Document 07/12/22 10:20 [id number] 07/12/22 10:23 Document 07/19/22 09:50 [id number] 07/19/22 09:53 JF 07/12/22 07/19/22 10:20 09:50 Wound Center Nurse 2 1. sacral -Time 10:20 09:50 -Correct Patient Yes Yes -Correct Side, Site, Position Yes Yes -Correct Procedure Yes Yes -Procedure Performed Yes Yes -Type of Procedure Debridement Debridement -Clinical Debridement Muscle / Fascia Muscle / Fascia -Tissue Removed Muscle,Fascia Muscle -Post Debridement (cm) - Length 6.1 5.5 -Post Debridement (cm) - Width 5.2 5.0 -Post Debridement (cm) - Depth 1.1 1.1 -Total Square (Post) (cm) 31.72 27.50 -Area of Debridement (cm) - Length 6.1 5.5 -Area of Debridement (cm) - Width 5.2 5.0 -Total Square (Area) (cm) 31.72 27.50 -Tunneling No No -Undermining/Tunneling Yes Yes -Undermining/Tunneling Starts (O'clock 1 1 ) -Undermining/Tunneling Ends (O'clock) 4 4 -Maximum Distance (cm) 2.0 1.0 -Circular Undermining No No -Wound/Ulcer Outcome Not Healed Not Healed -Ulcer Cleansing Rinsed/ Rinsed/ Irrigated with Irrigated with Saline Saline -Foul Odor after Cleansing No No -Bioengineered Tissue No No -Bleeding Controlled with Pressure Pressure -Treatment Response Procedure Procedure Tolerated Well Tolerated Well -Offloading No No -Pressure Reduction Specialty bed -Debridement - Muscle / Fascia, 1st Yes Yes 20sq cm -Debridement, Muscle/Fascia, ea addt'l 1 20sq cm or part thereof Pain Scale: 0-10 Numeric Is Patient Pain Free? Yes Yes - Nurse 3 - General Ulcer D/C NN Start: 07/12/22 09:40 Freq: Status: Active Protocol: Activity Type Activity Date Activity User E-sign Co-sign Detail Recorded Client Recorded Date Recorded By Document 07/12/22 12:10 RB [id number] 07/12/22 12:11 RB Document 07/19/22 10:11 RB [id number] 07/19/22 10:11 RB 07/12/22 07/19/22 12:10 10:11 Wound Care Center Nurse 3 1. sacral -Ulcer Cleansing Wound Cleanser Wound Cleanser -Negative Pressure Wound Therapy Continue Continue -Setting (mmHg) 150 150 -Negative Pressure is Continuous Continuous -NPWT Application Charge NPWT & NPWT & Debridement (nc Debridement (nc ) ) Mahnaz-Wound Care Barrier Barrier Treatment Response Procedure Procedure Tolerated Well Tolerated Well Pain Scale: 0-10 Numeric Is Patient Pain Free? No Yes WC - Visit Discharge Discharge Condition Stable Stable Ambulatory Status Walker Ambulatory, Walker Transportation Private Auto Private Auto Medication Reconcilliation completed & No No provided to patient/care provider Clinical Summary of Care Provided Yes Yes Assessment/Plan Assessment/Plan (1) Pressure ulcer of sacral region, stage 4: CODE(S): L89.154 - Pressure ulcer of sacral region, stage 4 (2) Rheumatoid arthritis: CODE(S): M06.9 - Rheumatoid arthritis, unspecified (3) Debility: CODE(S): R53.81 - Other malaise (4) Other acute postprocedural pain: CODE(S): G89.18 - Other acute postprocedural pain (5) Impacted cerumen of both ears: CODE(S): H61.23 - Impacted cerumen, bilateral PLAN: Plan Patient evaluated at the wound center today. Wound care - Wound VAC at 150 mmHg to be changed 3 times per week. At the time of the dressing changes, the ulcer and mahnaz wound should be washed with soap and water. She has been placed on Diflucan for her positive operative fungal cultures. Will have home health draw a base line CMP and will recheck CMP periodically while on the Diflucan. Patient was complaining of not being able to hear. Used an otoscope to examine ear canals and they both were impacted with sticky, yellow cerumen. Unable to visualize TM bilaterally due the amount of cerumen. With a curette, able to remove a large amount of cerumen from left ear canal and a moderate amount from right ear canal. Bilateral TM clear. Patient tolerated procedure well and noticed an immediate improvement in her hearing. Follow one week. Call or come in sooner if develop any questions or concerns.
[2022-07-26 08:53] VITALS: BP 128/73; PULSE 97; RESP 18; TEMP 36.2
--- NOTE | 2022-07-26 12:43 | PCM.WC.PN ---
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 Surgery 05/22/[address] Lee for Excision necrotic left sacral pressure sore, Stage IV, with partial ostectomy for osteomyelitis. Operative tissue cultures positive for Eschericha coli, Streptococcus sanguinis, Corynebacterium amycolatum, Provotella oralis, Anaerobic cocci, and most recently Fernanda albicans and Aspirgillus fumigatus. Operative bone culture positive for Provotella disiens and Fernanda albicans. She was treated with Levaquin and Augmentin. She developed muscle pain so the Levaquin was switched to Doxycycline. The fungal cultures just recently came back and we will start her on Diflucan. Wound care is wound VAC at 150 mmHg to be changed 3 times per week. She has home health to assist with the dressing changes. Today she denies fever, chills, nausea or vomiting. She states she is doing well at home. Progress of Wound: Left sacral ulcer is beefy pink into the muscle with bone exposure, the bone is almost covered. The ulcer is showing improvement. Patient states her hearing is much better after having the ear wax removed at her last visit. She states that she became very ill after starting the Diflucan and on Sunday she started to have severe diarrhea so she stopped taking it. Since she stopped it, her diarrhea has improved. Since she has had a few days to give her gut a rest, will restart it at 200 mg and re-evaluate it next week. Objective Data Objective Data Vital Signs: Vital Signs Temp Pulse Resp BP 97.1 F L 97 18 128/73 H 07/26/22 08:53 07/26/22 08:53 07/26/22 08:53 07/26/22 08:53 Weight: 124 lb Body Mass Index (BMI) 20.0 Charges/Coding Procedures Integumentary [id number]: [id number] Global Visit Debridement Note Debridement Note Wound debrided: Sacral ulcer Laterality: Left Wound Grade/Stage: Stage IV Type of Debridement: Excisional debridement Anesthesia Used: 4% Lidocaine Solution and 5% Lidocaine Gel Depth: Down to and including healthy tissue, in the subcutaneous layer, to muscle and to bone Percentage of wound debrided: 100 Instrument Used: 7mm curette Tissue Removed: Devitalized tissue and slough into the muscle with bone exposure Severity: Fat Layer Exposed Amount of bleeding with debridement: Mild Bleeding Controlled with: Pressure and Compression and gauze Debridement Free Text: Debridement into the muscle, there is bone exposed but no bone was debrided. Post-Debridement Measurements and Additional Note: Post-Debridement Measurements/Treatment - Nurse 1 - General Ulcer Assessment Start: 07/12/22 09:40 Freq: Status: Active Protocol: JUSTIN Activity Type Activity Date Activity User E-sign Co-sign Detail Recorded Client Recorded Date Recorded By Document 07/12/22 09:44 [id number] 07/12/22 10:04 RB Document 07/19/22 09:31 RB [id number] 07/19/22 09:39 RB Document 07/26/22 08:53 RB [id number] 07/26/22 08:56 RB 07/12/22 07/19/22 07/26/22 09:44 09:31 08:53 - Today's Visit Information Type of service Initial Visit Follow-up Visit Follow-up Visit (Physician/REPAIR ARMATURE WINDER HELPER (Physician/REPAIR ARMATURE WINDER HELPER ) ) Arrival Mode Ambulatory, Ambulatory, Ambulatory, Walker Walker Walker Transfer Assistance None None None Patient Identification Verified (Name & Yes Yes Yes ) Patient Requires Transmission-Based No No No Precautions Height and Weight Height 5 ft 6 in Weight 124 lb Weight in Pounds 124.0 lbs Body Mass Index (BMI) 20.0 20.0 20.0 BMI Classification Normal Normal Normal BSA - Maykel 1.63 Vital Signs Temperature (97.8 F-99.1 F) 97 F L 98.4 F 97.1 F L Temperature Source Temporal Temporal Temporal Pulse Rate (60-100) 85 94 97 Pulse Location Monitor Monitor Monitor Respiratory Rate (12-18) 18 18 Respiratory rate source Observation Observation Observation Blood Pressure (90/60-120/80) 135/80 H 134/62 H 128/73 H Blood Pressure Mean (mm Hg) 98 86 91 Source Monitor Monitor Monitor Position Sitting Semi-Fowlers Semi-Fowlers Blood Pressure Location Left Arm Left Arm Left Arm History Since Last Visit- (Skip if this is Patient's initial visit) Have you changed medications since your No No last visit? Any new allergies or adverse reactions No No Had a fall/change in ADL's that may No No increase risk of falls Signs or symptoms of abuse and/or No No neglect since last visit Have you been in the hospital since your No No last visit? Has dressing in place as prescribed Yes Yes Has compression in place as prescribed No No Has offloadiing in place as prescribed Yes No Experienced any changes in pain level or No No management Pain Scale: 0-10 Numeric Is Patient Pain Free? No Yes Yes sacral -Description Aching -Intensity 7 -Duration (hours) Acute -Pain Aggravating Factors Changing Position -Alleviating Factors/Interventions Medication -Effectiveness of Alleviating Factor/ Moderately Intervention effective Communication Assessment Preferred language Nepali Rx Specialist Required No Able to Read Yes Able to Write Yes Communication Tools None Caregiver Communication Skills No Impairment Impairment Right Hearing Abillity Normal Left Hearing Abillity Normal Visual Assistive Devices Glasses Teaching Assessment Preferences Verbal,Written, Demonstration Barriers to Learning None Readiness To Learn Good Willingness to Engage in Self Management Med Activies Readiness to Engage in Self Management Med Activities Anxiety Level Calm Cooperation Cooperative Perception Coherent Interest in Health Problem Asks Questions Education Importance Acknowledges Need Does Patient Smoke tobacco or other No substances Smoking Status Never smoker Is Patient Diabetic No Functional Assessment Recent Decline in Ability to Perform Denies Any Declines Culture/Gnosticism/Hydraulic Boom Operator Cultural/Gnosticism Needs that may affect No Treatment Plan Would you allow our hospital janitorial assistant to No meet you for the purpose of spiritual/ emotional support? Hydraulic Boom Operator to contact place of denominational No Teaching: Wound Center *Welcome to the Wound Center -Person Taught Patient -Teaching Method Discussion -Response to teaching Verbalize understanding WC - Nurse 1 - General Ulcer Measurement Start: 07/12/22 09:40 Freq: Status: Active Protocol: Activity Type Activity Date Activity User E-sign Co-sign Detail Recorded Client Recorded Date Recorded By Document 07/12/22 09:44 RB [id number] 07/12/22 10:04 RB Document 07/19/22 09:31 RB [id number] 07/19/22 09:39 RB Document 07/26/22 08:53 RB [id number] 07/26/22 08:56 RB Edit Result 07/26/22 08:53 RB (1) [id number] 07/26/22 09:08 DL (1) 1. sacral - Structure Exposed N/A => Bone 07/12/22 07/19/22 07/26/22 09:44 09:31 08:53 Wound Center Nurse 1 1. sacral -Combined with other wound No No No -Current Size (cm) - Length 6 5.5 4.8 -Current Size (cm) - Width 6 4.6 4.8 -Current Size (cm) - Depth 1.2 1.1 1.3 -Total Square Cm 36 25.30 23.04 -Photo Taken Yes -Tunneling No No -Undermining/Tunneling Yes Yes Yes -Undermining/Tunneling Starts (O'clock 8 7 10 ) -Undermining/Tunneling Ends (O'clock) 5 4 4 -Maximum Distance (cm) 2.2 1.8 2.4 -Circular Undermining No -Exudate Amt Large Large Medium -Exudate Type Serosanguineous Serosanguineous Serosanguineous -Wound Margin Thickened & Distinct, Distinct, Rolled Under Outline Outline Attached Attached -Granulation Amt Medium (34-66%) Medium (34-66%) Medium (34-66%) -Granulation Quality Royal Center Royal Center,Red Royal Center -Slough/Fibrin Yes Yes Yes -Necrosis Amt Medium (34-66%) None Present (0 Medium (34-66%) %) -Necrotic Tissue Type Adherent Slough Adherent Slough Adherent Slough -Structure Exposed N/A N/A Bone -Texture (Mahnaz-wound Skin Appearance) Assessed Assessed, Assessed Scarring -Moisture (Mahnaz-wound Skin Appearance) Maceration Assessed Assessed -Color (Mahnaz-wound Skin Appearance) Assessed Assessed Not Assessed -Temperature (Mahnaz-wound Skin No Abnormality No Abnormality No Abnormality Appearance) (Pt Warm) (Pt Warm) (Pt Warm) -Tenderness on Palpation (Mahnaz-wound No No No Skin Appearance) -Ulcer Cleansing Wound Cleanser Wound Cleanser Wound Cleanser -Foul Odor after Cleansing No No No -Anesthetic Used 4% Lidocaine 4% Lidocaine 5% Lidocaine Solution Solution Gel WC - Nurse 2 - General Ulcer CM Notes Start: 07/12/22 09:40 Freq: Status: Active Protocol: Activity Type Activity Date Activity User E-sign Co-sign Detail Recorded Client Recorded Date Recorded By Document 07/12/22 10:20 [id number] 07/12/22 10:23 JF Document 07/19/22 09:50 [id number] 07/19/22 09:53 JF Edit Result 07/19/22 09:50 JF (1) [id number] 07/20/22 15:18 PL Document 07/26/22 09:08 [id number] 07/26/22 09:13 JF (1) 1. sacral - Debridement, Muscle/Fascia, ea addt'l => 1 20sq cm or part thereof 07/12/22 07/19/22 07/26/22 10:20 09:50 09:08 Wound Center Nurse 2 1. sacral -Time 10:20 09:50 09:09 -Correct Patient Yes Yes Yes -Correct Side, Site, Position Yes Yes Yes -Correct Procedure Yes Yes Yes -Procedure Performed Yes Yes Yes -Type of Procedure Debridement Debridement Debridement -Clinical Debridement Muscle / Fascia Muscle / Fascia Muscle / Fascia -Tissue Removed Muscle,Fascia Muscle Muscle -Post Debridement (cm) - Length 6.1 5.5 6.5 -Post Debridement (cm) - Width 5.2 5.0 4.0 -Post Debridement (cm) - Depth 1.1 1.1 0.9 -Total Square (Post) (cm) 31.72 27.50 26.00 -Area of Debridement (cm) - Length 6.1 5.5 6.5 -Area of Debridement (cm) - Width 5.2 5.0 4.0 -Total Square (Area) (cm) 31.72 27.50 26.00 -Tunneling No No No -Undermining/Tunneling Yes Yes Yes -Undermining/Tunneling Starts (O'clock 1 1 1 ) -Undermining/Tunneling Ends (O'clock) 4 4 4 -Maximum Distance (cm) 2.0 1.0 2.0 -Circular Undermining No No No -Wound/Ulcer Outcome Not Healed Not Healed Not Healed -Ulcer Cleansing Rinsed/ Rinsed/ Rinsed/ Irrigated with Irrigated with Irrigated with Saline Saline Saline -Foul Odor after Cleansing No No No -Bioengineered Tissue No No No -Bleeding Controlled with Pressure Pressure Pressure -Treatment Response Procedure Procedure Procedure Tolerated Well Tolerated Well Tolerated Well -Offloading No No No -Pressure Reduction Specialty bed -Debridement - Muscle / Fascia, 1st Yes Yes Yes 20sq cm -Debridement, Muscle/Fascia, ea addt'l 1 1 1 20sq cm or part thereof Pain Scale: 0-10 Numeric Is Patient Pain Free? Yes Yes Yes - Nurse 3 - General Ulcer D/C NN Start: 07/12/22 09:40 Freq: Status: Active Protocol: Activity Type Activity Date Activity User E-sign Co-sign Detail Recorded Client Recorded Date Recorded By Document 07/12/22 12:10 RB [id number] 07/12/22 12:11 RB Document 07/19/22 10:11 RB [id number] 07/19/22 10:11 RB Document 07/26/22 10:17 DL [id number] 07/26/22 10:18 DL 07/12/22 07/19/22 07/26/22 12:10 10:11 10:17 Wound Care Center Nurse 3 1. sacral -Ulcer Cleansing Wound Cleanser Wound Cleanser Soap and Water -Foul Odor after Cleansing No -Negative Pressure Wound Therapy Continue Continue Continue -Setting (mmHg) 150 150 150 -Negative Pressure is Continuous Continuous Continuous -NPWT Application Charge NPWT & NPWT & NPWT </= 50 sq Debridement (nc Debridement (nc cm ($) ) ) Mahnaz-Wound Care Barrier Barrier Barrier Treatment Response Procedure Procedure Procedure Tolerated Well Tolerated Well Tolerated Well Pain Scale: 0-10 Numeric Is Patient Pain Free? No Yes Yes WC - Visit Discharge Discharge Condition Stable Stable Stable Ambulatory Status Walker Ambulatory, Ambulatory, Walker Walker Transportation Private Auto Private Auto Private Auto Medication Reconcilliation completed & No No provided to patient/care provider Clinical Summary of Care Provided Yes Yes Facility Type Home Health Orders Sent Yes Assessment/Plan Assessment/Plan (1) Pressure ulcer of sacral region, stage 4: CODE(S): L89.154 - Pressure ulcer of sacral region, stage 4 (2) Rheumatoid arthritis: CODE(S): M06.9 - Rheumatoid arthritis, unspecified (3) Debility: CODE(S): R53.81 - Other malaise (4) Other acute postprocedural pain: CODE(S): G89.18 - Other acute postprocedural pain (5) Impacted cerumen of both ears: CODE(S): H61.23 - Impacted cerumen, bilateral PLAN: Plan Patient evaluated at the wound center today. Wound care - Wound VAC at 150 mmHg to be changed 3 times per week. At the time of the dressing changes, the ulcer and mahnaz wound should be washed with soap and water. She has been placed on Diflucan for her positive operative fungal cultures. She states that she became very ill after starting the Diflucan and on Sunday she started to have severe diarrhea so she stopped taking it.? Since she stopped it, her diarrhea has improved.? Since she has had a few days to give her gut a rest, will restart it at 200 mg and re-evaluate it next week. On 07/25/22 Alk Phos 152. Will monitor closely. Will recheck CMP in a couple weeks. Prealbumin 12.8 on 05/23/22. Encouraged increase protein supplementation. She state she is drinking Tommy 1-2 times per day in addition to her increase in dietary protein. Renewed Gabapentin for her nerve pain. PDMP reveiwed. Follow one week. Call or come in sooner if develop any questions or concerns.
[2022-08-02 09:39] VITALS: BP 125/86; PULSE 104; RESP 16; TEMP 35.8
--- NOTE | 2022-08-02 10:05 | PCM.WC.PN ---
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 Surgery 05/22/[address] Lee for Excision necrotic left sacral pressure sore, Stage IV, with partial ostectomy for osteomyelitis. Operative tissue cultures positive for Eschericha coli, Streptococcus sanguinis, Corynebacterium amycolatum, Provotella oralis, Anaerobic cocci, and most recently Fernanda albicans and Aspirgillus fumigatus. Operative bone culture positive for Provotella disiens and Fernanda albicans. She was treated with Levaquin and Augmentin. She developed muscle pain so the Levaquin was switched to Doxycycline. The fungal cultures just recently came back and we will start her on Diflucan. Wound care is wound VAC at 150 mmHg to be changed 3 times per week. She has home health to assist with the dressing changes. Today she denies fever, chills, nausea or vomiting. She states she is doing well at home. Progress of Wound: Left sacral ulcer is beefy pink into the muscle with bone exposure, the bone is almost covered. The ulcer is showing improvement. She is still not tolerating the Diflucan at 200 mg/ day. She states that she has an upset stomach and diarrhea when taking it. Will stop at this time. Objective Data Objective Data Vital Signs: Vital Signs Temp Pulse Resp BP 96.5 F L 104 H 16 125/86 H 08/02/22 09:39 08/02/22 09:39 08/02/22 09:39 08/02/22 09:39 Weight: 124 lb Body Mass Index (BMI) 20.0 Charges/Coding Procedures Integumentary [id number]: [id number] Global Visit Debridement Note Debridement Note Wound debrided: Sacral ulcer Laterality: Left Wound Grade/Stage: Stage IV Type of Debridement: Excisional debridement Anesthesia Used: 4% Lidocaine Solution and 5% Lidocaine Gel Depth: Down to and including healthy tissue, in the subcutaneous layer, to muscle and to bone Percentage of wound debrided: 100 Instrument Used: 5mm curette Tissue Removed: Devitalized tissue and slough into the muscle with bone exposure Severity: Fat Layer Exposed Amount of bleeding with debridement: Mild Bleeding Controlled with: Pressure and Compression and gauze Debridement Free Text: Debridement into the muscle, there is bone exposed but no bone was debrided. Post-Debridement Measurements and Additional Note: Post-Debridement Measurements/Treatment - Nurse 1 - General Ulcer Assessment Start: 07/12/22 09:40 Freq: Status: Active Protocol: LOWEXMarquis Activity Type Activity Date Activity User E-sign Co-sign Detail Recorded Client Recorded Date Recorded By Document 07/12/22 09:44 RB [id number] 07/12/22 10:04 RB Document 07/19/22 09:31 RB [id number] 07/19/22 09:39 RB Document 07/26/22 08:53 RB [id number] 07/26/22 08:56 RB Document 08/02/22 09:39 ML [id number] 08/02/22 09:49 ML 07/12/22 07/19/22 07/26/22 09:44 09:31 08:53 - Today's Visit Information Type of service Initial Visit Follow-up Visit Follow-up Visit (Physician/COMMUNICATIONS DESIGNER (Physician/COMMUNICATIONS DESIGNER ) ) Arrival Mode Ambulatory, Ambulatory, Ambulatory, Walker Walker Walker Transfer Assistance None None None Patient Identification Verified (Name & Yes Yes Yes ) Patient Requires Transmission-Based No No No Precautions Safety Precautions Height and Weight Height 5 ft 6 in Weight 124 lb Weight in Pounds 124.0 lbs Body Mass Index (BMI) 20.0 20.0 20.0 BMI Classification Normal Normal Normal BSA - Maykel 1.63 Vital Signs Temperature (97.8 F-99.1 F) 97 F L 98.4 F 97.1 F L Temperature Source Temporal Temporal Temporal Pulse Rate (60-100) 85 94 97 Pulse Location Monitor Monitor Monitor Respiratory Rate (12-18) 18 18 Respiratory rate source Observation Observation Observation Blood Pressure (90/60-120/80) 135/80 H 134/62 H 128/73 H Blood Pressure Mean (mm Hg) 98 86 91 Source Monitor Monitor Monitor Position Sitting Semi-Fowlers Semi-Fowlers Blood Pressure Location Left Arm Left Arm Left Arm History Since Last Visit- (Skip if this is Patient's initial visit) Have you changed medications since your No No last visit? Any new allergies or adverse reactions No No Had a fall/change in ADL's that may No No increase risk of falls Signs or symptoms of abuse and/or No No neglect since last visit Have you been in the hospital since your No No last visit? Has dressing in place as prescribed Yes Yes Has compression in place as prescribed No No Has offloadiing in place as prescribed Yes No Experienced any changes in pain level or No No management Left Footwear Right Footwear Pain Scale: 0-10 Numeric Is Patient Pain Free? No Yes Yes sacral -Description Aching -Intensity 7 -Duration (hours) Acute -Pain Aggravating Factors Changing Position -Alleviating Factors/Interventions Medication -Effectiveness of Alleviating Factor/ Moderately Intervention effective Communication Assessment Preferred language Kinyarwanda Stand Grinder Required No Able to Read Yes Able to Write Yes Communication Tools None Caregiver Communication Skills No Impairment Impairment Right Hearing Abillity Normal Left Hearing Abillity Normal Visual Assistive Devices Glasses Teaching Assessment Preferences Verbal,Written, Demonstration Barriers to Learning None Readiness To Learn Good Willingness to Engage in Self Management Med Activies Readiness to Engage in Self Management Med Activities Anxiety Level Calm Cooperation Cooperative Perception Coherent Interest in Health Problem Asks Questions Education Importance Acknowledges Need Does Patient Smoke tobacco or other No substances Smoking Status Never smoker Is Patient Diabetic No Functional Assessment Recent Decline in Ability to Perform Denies Any Declines Culture/Nondenominational/Wellness Spa Manager Cultural/Nondenominational Needs that may affect No Treatment Plan Would you allow our hospital database security expert to No meet you for the purpose of spiritual/ emotional support? Wellness Spa Manager to contact place of gnosticist No Teaching: Wound Center *Welcome to the Wound Center -Person Taught Patient -Teaching Method Discussion -Response to teaching Verbalize understanding 08/02/22 09:39 WC - Today's Visit Information Type of service Follow-up Visit (Physician/COMMUNICATIONS DESIGNER ) Arrival Mode Ambulatory Transfer Assistance None Patient Identification Verified (Name & Yes ) Patient Requires Transmission-Based No Precautions Safety Precautions NA Height and Weight Height Weight Weight in Pounds Body Mass Index (BMI) 20.0 BMI Classification Normal BSA - Maykel Vital Signs Temperature (97.8 F-99.1 F) 96.5 F L Temperature Source Temporal Pulse Rate (60-100) 104 H Pulse Location Monitor Respiratory Rate (12-18) 16 Respiratory rate source Observation Blood Pressure (90/60-120/80) 125/86 H Blood Pressure Mean (mm Hg) 99 Source Monitor Position Sitting Blood Pressure Location Left Arm History Since Last Visit- (Skip if this is Patient's initial visit) Have you changed medications since your No last visit? Any new allergies or adverse reactions No Had a fall/change in ADL's that may increase risk of falls Signs or symptoms of abuse and/or No neglect since last visit Have you been in the hospital since your No last visit? Has dressing in place as prescribed Yes Has compression in place as prescribed N/A Has offloadiing in place as prescribed N/A Experienced any changes in pain level or No management Left Footwear Regular Shoe Right Footwear Regular Shoe Pain Scale: 0-10 Numeric Is Patient Pain Free? Yes sacral -Description -Intensity -Duration (hours) -Pain Aggravating Factors -Alleviating Factors/Interventions -Effectiveness of Alleviating Factor/ Intervention Communication Assessment Preferred english as a second language instructor Required Able to Read Able to Write Communication Tools Caregiver Communication Skills Impairment Right Hearing Abillity Left Hearing Abillity Visual Assistive Devices Teaching Assessment Preferences Barriers to Learning Readiness To Learn Willingness to Engage in Self Management Activies Readiness to Engage in Self Management Activities Anxiety Level Cooperation Perception Interest in Health Problem Education Importance Does Patient Smoke tobacco or other substances Smoking Status Is Patient Diabetic Functional Assessment Recent Decline in Ability to Perform Culture/Nondenominational/Wellness Spa Manager Cultural/Nondenominational Needs that may affect Treatment Plan Would you allow our hospital database security expert to meet you for the purpose of spiritual/ emotional support? Wellness Spa Manager to contact place of gnosticist Teaching: Wound Center *Welcome to the Wound Center -Person Taught -Teaching Method -Response to teaching WC - Nurse 1 - General Ulcer Measurement Start: 07/12/22 09:40 Freq: Status: Active Protocol: Activity Type Activity Date Activity User E-sign Co-sign Detail Recorded Client Recorded Date Recorded By Document 07/12/22 09:44 RB [id number] 07/12/22 10:04 RB Document 07/19/22 09:31 RB [id number] 07/19/22 09:39 RB Document 07/26/22 08:53 RB [id number] 07/26/22 08:56 RB Edit Result 07/26/22 08:53 RB (1) [id number] 07/26/22 09:08 DL Document 08/02/22 09:39 ML [id number] 08/02/22 09:49 ML (1) 1. sacral - Structure Exposed N/A => Bone 07/12/22 07/19/22 07/26/22 09:44 09:31 08:53 Wound Center Nurse 1 1. sacral -Combined with other wound No No No -Current Size (cm) - Length 6 5.5 4.8 -Current Size (cm) - Width 6 4.6 4.8 -Current Size (cm) - Depth 1.2 1.1 1.3 -Total Square Cm 36 25.30 23.04 -Photo Taken Yes -Tunneling No No -Undermining/Tunneling Yes Yes Yes -Undermining/Tunneling Starts (O'clock 8 7 10 ) -Undermining/Tunneling Ends (O'clock) 5 4 4 -Maximum Distance (cm) 2.2 1.8 2.4 -Circular Undermining No -Exudate Amt Large Large Medium -Exudate Type Serosanguineous Serosanguineous Serosanguineous -Wound Margin Thickened & Distinct, Distinct, Rolled Under Outline Outline Attached Attached -Granulation Amt Medium (34-66%) Medium (34-66%) Medium (34-66%) -Granulation Quality Quesada Quesada,Red Quesada -Slough/Fibrin Yes Yes Yes -Necrosis Amt Medium (34-66%) None Present (0 Medium (34-66%) %) -Necrotic Tissue Type Adherent Slough Adherent Slough Adherent Slough -Structure Exposed N/A N/A Bone -Texture (Mahnaz-wound Skin Appearance) Assessed Assessed, Assessed Scarring -Moisture (Mahnaz-wound Skin Appearance) Maceration Assessed Assessed -Color (Mahnaz-wound Skin Appearance) Assessed Assessed Not Assessed -Temperature (Mahnaz-wound Skin No Abnormality No Abnormality No Abnormality Appearance) (Pt Warm) (Pt Warm) (Pt Warm) -Tenderness on Palpation (Mahnaz-wound No No No Skin Appearance) -Ulcer Cleansing Wound Cleanser Wound Cleanser Wound Cleanser -Foul Odor after Cleansing No No No -Anesthetic Used 4% Lidocaine 4% Lidocaine 5% Lidocaine Solution Solution Gel 08/02/22 09:39 Wound Center Nurse 1 1. sacral -Combined with other wound -Current Size (cm) - Length 4 -Current Size (cm) - Width 4.5 -Current Size (cm) - Depth 0.5 -Total Square Cm 18.0 -Photo Taken -Tunneling -Undermining/Tunneling Yes -Undermining/Tunneling Starts (O'clock 12 ) -Undermining/Tunneling Ends (O'clock) 12 -Maximum Distance (cm) -Circular Undermining Yes -Exudate Amt Large -Exudate Type Serosanguineous -Wound Margin Distinct, Outline Attached -Granulation Amt -Granulation Quality -Slough/Fibrin Yes -Necrosis Amt None Present (0 %) -Necrotic Tissue Type Adherent Slough -Structure Exposed -Texture (Mahnaz-wound Skin Appearance) Assessed -Moisture (Mahnaz-wound Skin Appearance) Assessed -Color (Mahnaz-wound Skin Appearance) Assessed -Temperature (Mahnaz-wound Skin No Abnormality Appearance) (Pt Warm) -Tenderness on Palpation (Mahnaz-wound Yes Skin Appearance) -Ulcer Cleansing Soap and Water -Foul Odor after Cleansing No -Anesthetic Used 5% Lidocaine Gel WC - Nurse 2 - General Ulcer CM Notes Start: 07/12/22 09:40 Freq: Status: Active Protocol: Activity Type Activity Date Activity User E-sign Co-sign Detail Recorded Client Recorded Date Recorded By Document 07/12/22 10:20 [id number] 07/12/22 10:23 Document 07/19/22 09:50 [id number] 07/19/22 09:53 Edit Result 07/19/22 09:50 JF (1) [id number] 07/20/22 15:18 PL Document 07/26/22 09:08 [id number] 07/26/22 09:13 JF Document 08/02/22 09:59 [id number] 08/02/22 10:02 JF (1) 1. sacral - Debridement, Muscle/Fascia, ea addt'l => 1 20sq cm or part thereof 07/12/22 07/19/22 07/26/22 10:20 09:50 09:08 Wound Center Nurse 2 1. sacral -Time 10:20 09:50 09:09 -Correct Patient Yes Yes Yes -Correct Side, Site, Position Yes Yes Yes -Correct Procedure Yes Yes Yes -Procedure Performed Yes Yes Yes -Type of Procedure Debridement Debridement Debridement -Clinical Debridement Muscle / Fascia Muscle / Fascia Muscle / Fascia -Tissue Removed Muscle,Fascia Muscle Muscle -Post Debridement (cm) - Length 6.1 5.5 6.5 -Post Debridement (cm) - Width 5.2 5.0 4.0 -Post Debridement (cm) - Depth 1.1 1.1 0.9 -Total Square (Post) (cm) 31.72 27.50 26.00 -Area of Debridement (cm) - Length 6.1 5.5 6.5 -Area of Debridement (cm) - Width 5.2 5.0 4.0 -Total Square (Area) (cm) 31.72 27.50 26.00 -Tunneling No No No -Undermining/Tunneling Yes Yes Yes -Undermining/Tunneling Starts (O'clock 1 1 1 ) -Undermining/Tunneling Ends (O'clock) 4 4 4 -Maximum Distance (cm) 2.0 1.0 2.0 -Circular Undermining No No No -Wound/Ulcer Outcome Not Healed Not Healed Not Healed -Ulcer Cleansing Rinsed/ Rinsed/ Rinsed/ Irrigated with Irrigated with Irrigated with Saline Saline Saline -Foul Odor after Cleansing No No No -Bioengineered Tissue No No No -Bleeding Controlled with Pressure Pressure Pressure -Treatment Response Procedure Procedure Procedure Tolerated Well Tolerated Well Tolerated Well -Offloading No No No -Pressure Reduction Specialty bed -Debridement - Muscle / Fascia, 1st Yes Yes Yes 20sq cm -Debridement, Muscle/Fascia, ea addt'l 1 1 1 20sq cm or part thereof Pain Scale: 0-10 Numeric Is Patient Pain Free? Yes Yes Yes 08/02/22 09:59 Wound Center Nurse 2 1. sacral -Time 09:59 -Correct Patient Yes -Correct Side, Site, Position Yes -Correct Procedure Yes -Procedure Performed Yes -Type of Procedure Debridement -Clinical Debridement Muscle / Fascia -Tissue Removed Muscle,Fascia -Post Debridement (cm) - Length 5.3 -Post Debridement (cm) - Width 3.8 -Post Debridement (cm) - Depth 0.6 -Total Square (Post) (cm) 20.14 -Area of Debridement (cm) - Length 5.3 -Area of Debridement (cm) - Width 3.8 -Total Square (Area) (cm) 20.14 -Tunneling No -Undermining/Tunneling Yes -Undermining/Tunneling Starts (O'clock 1 ) -Undermining/Tunneling Ends (O'clock) 4 -Maximum Distance (cm) 1.4 -Circular Undermining No -Wound/Ulcer Outcome Not Healed -Ulcer Cleansing Rinsed/ Irrigated with Saline -Foul Odor after Cleansing No -Bioengineered Tissue No -Bleeding Controlled with Pressure -Treatment Response Procedure Tolerated Well -Offloading No -Pressure Reduction -Debridement - Muscle / Fascia, 1st Yes 20sq cm -Debridement, Muscle/Fascia, ea addt'l 1 20sq cm or part thereof Pain Scale: 0-10 Numeric Is Patient Pain Free? Yes - Nurse 3 - General Ulcer D/C NN Start: 07/12/22 09:40 Freq: Status: Active Protocol: Activity Type Activity Date Activity User E-sign Co-sign Detail Recorded Client Recorded Date Recorded By Document 07/12/22 12:10 RB [id number] 07/12/22 12:11 RB Document 07/19/22 10:11 RB [id number] 07/19/22 10:11 RB Document 07/26/22 10:17 DL [id number] 07/26/22 10:18 DL Edit Result 07/26/22 10:17 DL (1) [id number] 07/27/22 06:43 PL (1) 1. sacral - NPWT Application Charge NPWT </= 50 sq cm => NPWT & Debridement ($) => (nc) 07/12/22 07/19/22 07/26/22 12:10 10:11 10:17 Wound Care Center Nurse 3 1. sacral -Ulcer Cleansing Wound Cleanser Wound Cleanser Soap and Water -Foul Odor after Cleansing No -Negative Pressure Wound Therapy Continue Continue Continue -Setting (mmHg) 150 150 150 -Negative Pressure is Continuous Continuous Continuous -NPWT Application Charge NPWT & NPWT & NPWT & Debridement (nc Debridement (nc Debridement (nc ) ) ) Mahnaz-Wound Care Barrier Barrier Barrier Treatment Response Procedure Procedure Procedure Tolerated Well Tolerated Well Tolerated Well Pain Scale: 0-10 Numeric Is Patient Pain Free? No Yes Yes - Visit Discharge Discharge Condition Stable Stable Stable Ambulatory Status Walker Ambulatory, Ambulatory, Walker Walker Transportation Private Auto Private Auto Private Auto Medication Reconcilliation completed & No No provided to patient/care provider Clinical Summary of Care Provided Yes Yes Facility Type Home Health Orders Sent Yes Assessment/Plan Assessment/Plan (1) Pressure ulcer of sacral region, stage 4: CODE(S): L89.154 - Pressure ulcer of sacral region, stage 4 (2) Rheumatoid arthritis: CODE(S): M06.9 - Rheumatoid arthritis, unspecified (3) Debility: CODE(S): R53.81 - Other malaise (4) Other acute postprocedural pain: CODE(S): G89.18 - Other acute postprocedural pain (5) Impacted cerumen of both ears: CODE(S): H61.23 - Impacted cerumen, bilateral PLAN: Plan Patient evaluated at the wound center today. Wound care - Wound VAC at 150 mmHg to be changed 3 times per week. At the time of the dressing changes, the ulcer and mahnaz wound should be washed with soap and water. She has been placed on Diflucan for her positive operative fungal cultures. She still did not tolerate the Diflucan 200 mg daily. It upset her stomach and was causing her to have diarrhea. Will stop at this time and discuss options with Dr. Lee. On 07/25/22 Alk Phos 152. Will monitor closely. Will recheck CMP in a couple weeks. Prealbumin 12.8 on 05/23/22. Encouraged increase protein supplementation. She state she is drinking Tommy 1-2 times per day in addition to her increase in dietary protein. Follow two weeks. Call or come in sooner if develop any questions or concerns.
== END 2022-08-08 23:59 | disposition home or self-care (01) ==
LOC: WC 09:30
PROVIDERS: PCP Family Medicine; Visit Provider Nurse Practitioner Family
DX: L89.154 Pressure ulcer of sacral region, stage 4 (principal); M06.9 Rheumatoid arthritis, unspecified; I48.0 Paroxysmal atrial fibrillation; B37.31 Acute candidiasis of vulva and vagina; H61.23 Impacted cerumen, bilateral; G89.18 Other acute postprocedural pain; R53.81 Other malaise; Z79.82 Long term (current) use of aspirin; Z79.899 Other long term (current) drug therapy
CPT/HCPCS: 11043; 11046; 97605; 99214; G0463

== ENCOUNTER 2022-08-30 09:30 | Outpatient (RCR) | payer MEDICARE, OTHER, SELFPAY ==
[2022-08-09 00:08] VITALS: BP 125/86; PULSE 104; RESP 16; TEMP 35.8
[2022-08-16 09:39] VITALS: BP 126/68; PULSE 82; RESP 20; TEMP 36.5
--- NOTE | 2022-08-16 11:01 | PCM.WC.PN ---
History of Present Illness Date of Service: 08/16/22 Chief Complaint: Left sacral ulcer History of Wound: 72 year old female with below past medical history suffered fall from second story, hospitalized for multi trauma, underwent left tibia intramedullary nail fixation, right hip anterograde intramedullary nail, complicated by encephalopathy from urinary tract infection, stage 4 left sacral pressure ulcer with chronic osteomyelitis, admitted to TCU on 04/17/22 with debility, there for rehabilitation, strengthening, prior to discharge home alone on 06/25/22 with home health/PT/OT. Surgery 05/22/[address] Lee for Excision necrotic left sacral pressure sore, Stage IV, with partial ostectomy for osteomyelitis. Operative tissue cultures positive for Eschericha coli, Streptococcus sanguinis, Corynebacterium amycolatum, Provotella oralis, Anaerobic cocci, and most recently Fernanda albicans and Aspirgillus fumigatus. Operative bone culture positive for Provotella disiens and Fernanda albicans. She was treated with Levaquin and Augmentin. She developed muscle pain so the Levaquin was switched to Doxycycline. The fungal cultures just recently came back and we will start her on Diflucan. Wound care is wound VAC at 150 mmHg to be changed 3 times per week. She has home health to assist with the dressing changes. Today she denies fever, chills, nausea or vomiting. She states she is doing well at home. Progress of Wound: Left sacral ulcer is beefy pink into the muscle with small area of bone exposure, the bone is almost covered. The ulcer is stable. Not much improvement this week. There is also an odor from her wound VAC. Unsure if the ulcer itself is getting washed with soap and water at the time of dressing change. Will take a wound VAC holiday this week and place silver alginate dressing daily this week. Objective Data Objective Data Vital Signs: Vital Signs Temp Pulse Resp BP 97.7 F L 82 20 H 126/68 H 08/16/22 09:39 08/16/22 09:39 08/16/22 09:39 08/16/22 09:39 Weight: 124 lb Body Mass Index (BMI) 20.0 Charges/Coding Procedures Integumentary 111xxx-113xx: 94253 Dana musc/fascia 20 sq cm/< Debridement Note Debridement Note Wound debrided: Sacral ulcer Laterality: Left Wound Grade/Stage: Stage IV Type of Debridement: Excisional debridement Anesthesia Used: 4% Lidocaine Solution and 5% Lidocaine Gel Depth: Down to and including healthy tissue, in the subcutaneous layer, to muscle and to bone Percentage of wound debrided: 100 Instrument Used: 5mm curette Tissue Removed: Devitalized tissue and slough into the muscle with bone exposure Severity: Fat Layer Exposed Amount of bleeding with debridement: Mild Bleeding Controlled with: Pressure and Compression and gauze Debridement Free Text: Debridement into the muscle, there is bone exposed but no bone was debrided. Post-Debridement Measurements and Additional Note: Post-Debridement Measurements/Treatment - Nurse 1 - General Ulcer Assessment Start: 08/16/22 09:35 Freq: Status: Active Protocol: JUSTIN Activity Type Activity Date Activity User E-sign Co-sign Detail Recorded Client Recorded Date Recorded By Document 08/16/22 09:39 DL [id number] 08/16/22 09:47 DL 08/16/22 09:39 WC - Today's Visit Information Type of service Follow-up Visit (Physician/ATTIC BLOWER ) Arrival Mode Ambulatory, Walker Transfer Assistance None Patient Identification Verified (Name & Yes ) Patient Requires Transmission-Based No Precautions Height and Weight Body Mass Index (BMI) 20.0 BMI Classification Normal Vital Signs Temperature (97.8 F-99.1 F) 97.7 F L Temperature Source Temporal Pulse Rate (60-100) 82 Pulse Location Monitor Respiratory Rate (12-18) 20 H Respiratory rate source Observation Blood Pressure (90/60-120/80) 126/68 H Blood Pressure Mean (mm Hg) 87 Source Monitor History Since Last Visit- (Skip if this is Patient's initial visit) Have you changed medications since your No last visit? Any new allergies or adverse reactions No Had a fall/change in ADL's that may No increase risk of falls Signs or symptoms of abuse and/or No neglect since last visit Have you been in the hospital since your No last visit? Has dressing in place as prescribed Yes Has compression in place as prescribed N/A Has offloadiing in place as prescribed Yes Experienced any changes in pain level or No management Pain Scale: 0-10 Numeric Is Patient Pain Free? Yes - Nurse 1 - General Ulcer Measurement Start: 08/16/22 09:35 Freq: Status: Active Protocol: Activity Type Activity Date Activity User E-sign Co-sign Detail Recorded Client Recorded Date Recorded By Document 08/16/22 09:39 DL [id number] 08/16/22 09:47 DL 08/16/22 09:39 Wound Center Nurse 1 1. sacral -Current Size (cm) - Length 4.5 -Current Size (cm) - Width 3.8 -Current Size (cm) - Depth 0.9 -Total Square Cm 17.10 -Photo Taken Yes -Maximum Distance #2 (cm) 1.6 -Circular Undermining Yes -Exudate Amt Medium -Exudate Type Serosanguineous -Wound Margin Thickened & Rolled Under -Granulation Amt Large (67-100%) -Granulation Quality [place],Red -Necrosis Amt Small (1-33%) -Necrotic Tissue Type Adherent Slough -Structure Exposed N/A -Texture (Mahnaz-wound Skin Appearance) Scarring -Moisture (Mahnaz-wound Skin Appearance) No Abnormality -Color (Mahnaz-wound Skin Appearance) No Abnormality -Temperature (Mahnaz-wound Skin No Abnormality Appearance) (Pt Warm) -Tenderness on Palpation (Mahnaz-wound No Skin Appearance) -Ulcer Cleansing Soap and Water -Foul Odor after Cleansing No -Anesthetic Used 5% Lidocaine Gel WC - Nurse 2 - General Ulcer CM Notes Start: 08/16/22 09:35 Freq: Status: Active Protocol: Activity Type Activity Date Activity User E-sign Co-sign Detail Recorded Client Recorded Date Recorded By Document 08/16/22 10:15 [id number] 08/16/22 10:17 HUMERA 08/16/22 10:15 Wound Center Nurse 2 -Time 10:16 -Correct Patient Yes -Correct Side, Site, Position Yes -Correct Procedure Yes -Procedure Performed Yes -Type of Procedure Debridement -Clinical Debridement Muscle / Fascia -Tissue Removed Muscle,Fascia -Post Debridement (cm) - Length 5 -Post Debridement (cm) - Width 4 -Post Debridement (cm) - Depth 0.6 -Total Square (Post) (cm) 20 -Area of Debridement (cm) - Length 5 -Area of Debridement (cm) - Width 4 -Total Square (Area) (cm) 20 -Tunneling No -Undermining/Tunneling No -Circular Undermining No -Wound/Ulcer Outcome Not Healed -Ulcer Cleansing Rinsed/ Irrigated with Saline -Foul Odor after Cleansing No -Bioengineered Tissue No -Bleeding Controlled with Pressure -Treatment Response Procedure Tolerated Well -Offloading No -Debridement - Muscle / Fascia, 1st Yes 20sq cm Pain Scale: 0-10 Numeric Is Patient Pain Free? Yes - Nurse 3 - General Ulcer D/C NN Start: 08/16/22 09:35 Freq: Status: Active Protocol: Activity Type Activity Date Activity User E-sign Co-sign Detail Recorded Client Recorded Date Recorded By Document 08/16/22 10:31 [id number] 08/16/22 10:33 08/16/22 10:31 Wound Care Center Nurse 3 1. sacral -Ulcer Cleansing Rinsed/ Irrigated with Saline -Foul Odor after Cleansing No -Other Dressing dakins -Primary Dressing Covered/Secured with Secured with Tape -Other Covering abd Treatment Response Procedure Tolerated Well Pain Scale: 0-10 Numeric Is Patient Pain Free? Yes - Visit Discharge Discharge Condition Stable Ambulatory Status Ambulatory, Walker Transportation Private Auto Facility Type Home Health Orders Sent Yes Assessment/Plan Assessment/Plan (1) Pressure ulcer of sacral region, stage 4: CODE(S): L89.154 - Pressure ulcer of sacral region, stage 4 (2) Rheumatoid arthritis: CODE(S): M06.9 - Rheumatoid arthritis, unspecified (3) Debility: CODE(S): R53.81 - Other malaise (4) Other acute postprocedural pain: CODE(S): G89.18 - Other acute postprocedural pain (5) Impacted cerumen of both ears: CODE(S): H61.23 - Impacted cerumen, bilateral PLAN: Plan Patient evaluated at the wound center today. Wound care - Will take a Wound VAC holiday this week. Silver alginate covered with gauze daily after washing with soap and water. She may shower before the dressing is changed. She was placed on Diflucan for her positive operative fungal cultures. She still did not tolerate the Diflucan 200 mg daily. It upset her stomach and was causing her to have diarrhea. Will stop at this time and discuss options with Dr. Lee. On 07/25/22 Alk Phos 152. Will monitor closely. Will recheck CMP in a couple weeks. Prealbumin 12.8 on 05/23/22. Encouraged increase protein supplementation. She state she is drinking Tommy 1-2 times per day in addition to her increase in dietary protein. Follow next week. Call or come in sooner if develop any questions or concerns.
[2022-08-21 09:53] VITALS: BP 139/72; PULSE 78; RESP 18; TEMP 36.5
--- NOTE | 2022-08-21 13:13 | PN.PCM_ITS ---
History of Present Illness Date of Service: 08/21/22 Chief Complaint: Left sacral ulcer History of Wound: 72 year old female with below past medical history suffered fall from second story, hospitalized for multi trauma, underwent left tibia intramedullary nail fixation, right hip anterograde intramedullary nail, complicated by encephalopathy from urinary tract infection, stage 4 left sacral pressure ulcer with chronic osteomyelitis, admitted to TCU on 04/17/22 with debility, there for rehabilitation, strengthening, prior to discharge home alone on 06/25/22 with home health/PT/OT. Surgery 05/22/[address] Lee for Excision necrotic left sacral pressure sore, Stage IV, with partial ostectomy for osteomyelitis. Operative tissue cultures positive for Eschericha coli, Streptococcus sanguinis, Corynebacterium amycolatum, Provotella oralis, Anaerobic cocci, and most recently Fernanda albicans and Aspirgillus fumigatus. Operative bone culture positive for Provotella disiens and Fernanda albicans. She was treated with Levaquin and Augmentin. She developed muscle pain so the Levaquin was switched to Doxycycline. The fungal cultures just recently came back and we will start her on Diflucan. Wound care is wound VAC at 150 mmHg to be changed 3 times per week. She has home health to assist with the dressing changes. Today she denies fever, chills, nausea or vomiting. She states she is doing well at home. Progress of Wound: Left sacral ulcer is beefy pink into the muscle with small area of bone exposure, the bone is almost covered. The ulcer is slightly smaller. Mahnaz wound is improving with the VAC holiday. Will continue wound VAC holiday until next Sunday08/28/[address] silver alginate dressing daily this week. Objective Data Objective Data Vital Signs: Vital Signs Temp Pulse Resp BP 97.7 F L 78 18 139/72 H 08/21/22 09:53 08/21/22 09:53 08/21/22 09:53 08/21/22 09:53 Weight: 124 lb Body Mass Index (BMI) 20.0 Charges/Coding Procedures Integumentary 111xxx-113xx: 76347 Dana musc/fascia 20 sq cm/< Debridement Note Debridement Note Wound debrided: Sacral ulcer Laterality: Left Wound Grade/Stage: Stage IV Type of Debridement: Excisional debridement Anesthesia Used: 4% Lidocaine Solution and 5% Lidocaine Gel Depth: Down to and including healthy tissue, in the subcutaneous layer, to muscle and to bone Percentage of wound debrided: 100 Instrument Used: 5mm curette Tissue Removed: Devitalized tissue and slough into the muscle with bone exposure Severity: Fat Layer Exposed Amount of bleeding with debridement: Mild Bleeding Controlled with: Pressure and Compression and gauze Debridement Free Text: Debridement into the muscle, there is bone exposed but no bone was debrided. Post-Debridement Measurements and Additional Note: Post-Debridement Measurements/Treatment - Nurse 1 - General Ulcer Assessment Start: 08/16/22 09:35 Freq: Status: Active Protocol: JUSTIN Activity Type Activity Date Activity User E-sign Co-sign Detail Recorded Client Recorded Date Recorded By Document 08/16/22 09:39 DL [id number] 08/16/22 09:47 DL Document 08/21/22 09:53 DL [id number] 08/21/22 09:59 DL 08/16/22 08/21/22 09:39 09:53 - Today's Visit Information Type of service Follow-up Visit Follow-up Visit (Physician/UNDERGROUND FOREMAN (Physician/UNDERGROUND FOREMAN ) ) Arrival Mode Ambulatory, Ambulatory, Walker Walker Transfer Assistance None None Patient Identification Verified (Name & Yes Yes ) Patient Requires Transmission-Based No No Precautions Safety Precautions Fall Prevention Height and Weight Body Mass Index (BMI) 20.0 20.0 BMI Classification Normal Normal Vital Signs Temperature (97.8 F-99.1 F) 97.7 F L 97.7 F L Temperature Source Temporal Temporal Pulse Rate (60-100) 82 78 Pulse Location Monitor Monitor Respiratory Rate (12-18) 20 H 18 Respiratory rate source Observation Observation Blood Pressure (90/60-120/80) 126/68 H 139/72 H Blood Pressure Mean (mm Hg) 87 94 Source Monitor Monitor History Since Last Visit- (Skip if this is Patient's initial visit) Have you changed medications since your No No last visit? Any new allergies or adverse reactions No No Had a fall/change in ADL's that may No No increase risk of falls Signs or symptoms of abuse and/or No No neglect since last visit Have you been in the hospital since your No No last visit? Has dressing in place as prescribed Yes Yes Has compression in place as prescribed N/A N/A Has offloadiing in place as prescribed Yes N/A Experienced any changes in pain level or No No management Pain Scale: 0-10 Numeric Is Patient Pain Free? Yes Yes BRADEN - Nurse 1 - General Ulcer Measurement Start: 08/16/22 09:35 Freq: Status: Active Protocol: Activity Type Activity Date Activity User E-sign Co-sign Detail Recorded Client Recorded Date Recorded By Document 08/16/22 09:39 DL [id number] 08/16/22 09:47 DL Document 08/21/22 09:53 DL [id number] 08/21/22 09:59 DL 08/16/22 08/21/22 09:39 09:53 Wound Center Nurse 1 1. sacral -Current Size (cm) - Length 4.5 4.8 -Current Size (cm) - Width 3.8 4.5 -Current Size (cm) - Depth 0.9 0.8 -Total Square Cm 17.10 21.60 -Photo Taken Yes Yes -Maximum Distance #2 (cm) 1.6 -Circular Undermining Yes -Exudate Amt Medium Medium -Exudate Type Serosanguineous Serosanguineous -Wound Margin Thickened & Thickened & Rolled Under Rolled Under -Granulation Amt Large (67-100%) Medium (34-66%) -Granulation Quality [place],Red [place] -Necrosis Amt Small (1-33%) Medium (34-66%) -Necrotic Tissue Type Adherent Slough Adherent Slough -Structure Exposed N/A N/A -Texture (Mahnaz-wound Skin Appearance) Scarring Scarring -Moisture (Mahnaz-wound Skin Appearance) No Abnormality No Abnormality -Color (Mahnaz-wound Skin Appearance) No Abnormality No Abnormality -Temperature (Mahnaz-wound Skin No Abnormality No Abnormality Appearance) (Pt Warm) (Pt Warm) -Tenderness on Palpation (Mahnaz-wound No No Skin Appearance) -Ulcer Cleansing Soap and Water Soap and Water -Foul Odor after Cleansing No No -Anesthetic Used 5% Lidocaine 5% Lidocaine Gel Gel BRADEN - Nurse 2 - General Ulcer CM Notes Start: 08/16/22 09:35 Freq: Status: Active Protocol: Activity Type Activity Date Activity User E-sign Co-sign Detail Recorded Client Recorded Date Recorded By Document 08/16/22 10:15 [id number] 08/16/22 10:17 Document 08/21/22 10:58 [id number] 08/21/22 11:03 08/16/22 08/21/22 10:15 10:58 Wound Center Nurse 2 1. sacral -Time 10:16 11:01 -Correct Patient Yes Yes -Correct Side, Site, Position Yes Yes -Correct Procedure Yes Yes -Procedure Performed Yes Yes -Type of Procedure Debridement Debridement -Clinical Debridement Muscle / Fascia Muscle / Fascia -Tissue Removed Muscle,Fascia Muscle,Fascia -Post Debridement (cm) - Length 5 5.0 -Post Debridement (cm) - Width 4 4.6 -Post Debridement (cm) - Depth 0.6 1.0 -Total Square (Post) (cm) 20 23.00 -Area of Debridement (cm) - Length 5 5 -Area of Debridement (cm) - Width 4 4.6 -Total Square (Area) (cm) 20 23.0 -Tunneling No Yes -Tunneling Position (O'clock) 11 -Tunneling Distance (cm) 1.1 -Undermining/Tunneling No No -Circular Undermining No No -Wound/Ulcer Outcome Not Healed Not Healed -Ulcer Cleansing Rinsed/ Rinsed/ Irrigated with Irrigated with Saline Saline -Foul Odor after Cleansing No No -Bioengineered Tissue No No -Bleeding Controlled with Pressure Pressure -Treatment Response Procedure Procedure Tolerated Well Tolerated Well -Offloading No No -Debridement - Muscle / Fascia, 1st Yes Yes 20sq cm -Debridement, Muscle/Fascia, ea addt'l 1 20sq cm or part thereof Pain Scale: 0-10 Numeric Is Patient Pain Free? Yes Yes - Nurse 3 - General Ulcer D/C NN Start: 08/16/22 09:35 Freq: Status: Active Protocol: Activity Type Activity Date Activity User E-sign Co-sign Detail Recorded Client Recorded Date Recorded By Document 08/16/22 10:31 [id number] 08/16/22 10:33 Document 08/21/22 11:09 DL [id number] 08/21/22 11:10 DL 08/16/22 08/21/22 10:31 11:09 Wound Care Center Nurse 3 1. sacral -Ulcer Cleansing Rinsed/ Rinsed/ Irrigated with Irrigated with Saline Saline -Foul Odor after Cleansing No -Other Dressing dakins dakins/ABD -Primary Dressing Covered/Secured with Secured with Secured with Tape Tape -Other Covering abd Treatment Response Procedure Procedure Tolerated Well Tolerated Well Pain Scale: 0-10 Numeric Is Patient Pain Free? Yes Yes WC - Visit Discharge Discharge Condition Stable Stable Ambulatory Status Ambulatory, Ambulatory, Walker Walker Transportation Private Auto Private Auto Facility Type Home Health Home Health Orders Sent Yes Yes Assessment/Plan Assessment/Plan (1) Pressure ulcer of sacral region, stage 4: CODE(S): L89.154 - Pressure ulcer of sacral region, stage 4 (2) Rheumatoid arthritis: CODE(S): M06.9 - Rheumatoid arthritis, unspecified (3) Debility: CODE(S): R53.81 - Other malaise (4) Other acute postprocedural pain: CODE(S): G89.18 - Other acute postprocedural pain (5) Impacted cerumen of both ears: CODE(S): H61.23 - Impacted cerumen, bilateral PLAN: Plan Patient evaluated at the wound center today. Wound care - Will take a Wound VAC holiday until next Sunday. Moistened Dakins 0.25% covered with gauze daily after washing with soap and water. She may shower before the dressing is changed. She was placed on Diflucan for her positive operative fungal cultures. She still did not tolerate the Diflucan 200 mg daily. It upset her stomach and was causing her to have diarrhea. She stopped it a couple weeks ago. Discussed this with Dr. Lee and we will consult ID. On 07/25/22 Venkata Izquierdo 152. Will monitor closely. Will recheck CMP this week, home health can draw it. Prealbumin 12.8 on 05/23/22. Encouraged increase protein supplementation. She state she is drinking Tommy 1-2 times per day in addition to her increase in dietary protein. Follow next week. Call or come in sooner if develop any questions or concerns.
--- NOTE | 2022-08-22 11:28 | WC ---
Received a call from Javier nurse at [facility] home health. Stated patient was seen yesterday at wound center. Wound vac is on a holiday this week. Home health is unable to change Dakins dressing daily and patient doesn't have any teachable family. Spoke to Magda Baker DAIRY TECHNICIAN that home health is unable to do daily dressing changes. Magda stated may use Aquacel AG to wound and change 3 times week until next appt. Javier nurse with home health notified of dressing change order. Voiced understanding.
[2022-08-30 09:48] VITALS: BP 133/79; PULSE 93; RESP 18; TEMP 36.1
--- NOTE | 2022-08-30 14:26 | PN.PCM_ITS ---
History of Present Illness Date of Service: 08/30/22 Chief Complaint: Left sacral ulcer History of Wound: 72 year old female with below past medical history suffered fall from second story, hospitalized for multi trauma, underwent left tibia intramedullary nail fixation, right hip anterograde intramedullary nail, complicated by encephalopathy from urinary tract infection, stage 4 left sacral pressure ulcer with chronic osteomyelitis, admitted to TCU on 04/17/22 with debility, there for rehabilitation, strengthening, prior to discharge home alone on 06/25/22 with home health/PT/OT. Surgery 05/22/[address] Lee for Excision necrotic left sacral pressure sore, Stage IV, with partial ostectomy for osteomyelitis. Operative tissue cultures positive for Eschericha coli, Streptococcus sanguinis, Corynebacterium amycolatum, Provotella oralis, Anaerobic cocci, and most recently Fernanda albicans and Aspirgillus fumigatus. Operative bone culture positive for Provotella disiens and Fernanda albicans. She was treated with Levaquin and Augmentin. She developed muscle pain so the Levaquin was switched to Doxycycline. The fungal cultures just recently came back and we will start her on Diflucan. Wound care is wound VAC at 150 mmHg to be changed 3 times per week. She has home health to assist with the dressing changes. Today she denies fever, chills, nausea or vomiting. She states she is doing well at home. Progress of Wound: Left sacral ulcer is beefy pink into the muscle with small area of bone exposure, the bone is covered today. The ulcer is slightly smaller. Mahnaz wound is clear. The VAC was placed again on Sunday and she is tolerating it well thus far. Objective Data Objective Data Vital Signs: Vital Signs Temp Pulse Resp BP 97 F L 93 18 133/79 H 08/30/22 09:48 08/30/22 09:48 08/30/22 09:48 08/30/22 09:48 Weight: 124 lb Body Mass Index (BMI) 20.0 Charges/Coding Procedures Integumentary 111xxx-113xx: 40833 Dana musc/fascia 20 sq cm/< Debridement Note Debridement Note Wound debrided: Sacral ulcer Laterality: Left Wound Grade/Stage: Stage IV Type of Debridement: Excisional debridement Anesthesia Used: 4% Lidocaine Solution and 5% Lidocaine Gel Depth: Down to and including healthy tissue, in the subcutaneous layer, to muscle and to bone Percentage of wound debrided: 100 Instrument Used: 5mm curette Tissue Removed: Devitalized tissue and slough into the muscle Severity: Fat Layer Exposed Amount of bleeding with debridement: Mild Bleeding Controlled with: Pressure and Compression and gauze Patient tolerated procedure: Patient tolerated procedure well Post-Debridement Measurements and Additional Note: Post-Debridement Measurements/Treatment - Nurse 1 - General Ulcer Assessment Start: 08/16/22 09:35 Freq: Status: Active Protocol: JUSTIN Activity Type Activity Date Activity User E-sign Co-sign Detail Recorded Client Recorded Date Recorded By Document 08/16/22 09:39 DL [id number] 08/16/22 09:47 DL Document 08/21/22 09:53 DL [id number] 08/21/22 09:59 DL Document 08/30/22 09:48 RB [id number] 08/30/22 10:00 RB 08/16/22 08/21/22 08/30/22 09:39 09:53 09:48 - Today's Visit Information Type of service Follow-up Visit Follow-up Visit Follow-up Visit (Physician/LAND 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 (Physician/LAND TITLE EXAMINER (Physician/LAND TITLE EXAMINER ) ) ) Arrival Mode Ambulatory, Ambulatory, Ambulatory, Walker Walker Walker Transfer Assistance None None None Patient Identification Verified (Name & Yes Yes Yes ) Patient Requires Transmission-Based No No No Precautions Safety Precautions Fall Prevention Height and Weight Body Mass Index (BMI) 20.0 20.0 20.0 BMI Classification Normal Normal Normal Vital Signs Temperature (97.8 F-99.1 F) 97.7 F L 97.7 F L 97 F L Temperature Source Temporal Temporal Temporal Pulse Rate (60-100) 82 78 93 Pulse Location Monitor Monitor Monitor Respiratory Rate (12-18) 20 H 18 18 Respiratory rate source Observation Observation Observation Blood Pressure (90/60-120/80) 126/68 H 139/72 H 133/79 H Blood Pressure Mean (mm Hg) 87 94 97 Source Monitor Monitor Monitor Position Semi-Fowlers Blood Pressure Location Left Arm History Since Last Visit- (Skip if this is Patient's initial visit) Have you changed medications since your No No No last visit? Any new allergies or adverse reactions No No No Had a fall/change in ADL's that may No No No increase risk of falls Signs or symptoms of abuse and/or No No No neglect since last visit Have you been in the hospital since your No No No last visit? Has dressing in place as prescribed Yes Yes Yes Has compression in place as prescribed N/A N/A No Has offloadiing in place as prescribed Yes N/A No Experienced any changes in pain level or No No No management Pain Scale: 0-10 Numeric Is Patient Pain Free? Yes Yes Yes WC - Nurse 1 - General Ulcer Measurement Start: 08/16/22 09:35 Freq: Status: Active Protocol: Activity Type Activity Date Activity User E-sign Co-sign Detail Recorded Client Recorded Date Recorded By Document 08/16/22 09:39 DL [id number] 08/16/22 09:47 DL Document 08/21/22 09:53 DL [id number] 08/21/22 09:59 DL Document 08/30/22 09:48 RB [id number] 08/30/22 10:00 RB 08/16/22 08/21/22 08/30/22 09:39 09:53 09:48 Wound Center Nurse 1 1. sacral -Combined with other wound No -Current Size (cm) - Length 4.5 4.8 5 -Current Size (cm) - Width 3.8 4.5 3.5 -Current Size (cm) - Depth 0.9 0.8 1 -Total Square Cm 17.10 21.60 17.5 -Photo Taken Yes Yes -Tunneling No -Undermining/Tunneling Yes -Undermining/Tunneling Starts (O'clock 11 ) -Undermining/Tunneling Ends (O'clock) 11 -Maximum Distance (cm) 1 -Maximum Distance #2 (cm) 1.6 -Circular Undermining Yes -Exudate Amt Medium Medium Medium -Exudate Type Serosanguineous Serosanguineous Serosanguineous -Wound Margin Thickened & Thickened & Thickened & Rolled Under Rolled Under Rolled Under -Granulation Amt Large (67-100%) Medium (34-66%) Medium (34-66%) -Granulation Quality [place] -Slough/Fibrin Yes -Necrosis Amt Small (1-33%) Medium (34-66%) Medium (34-66%) -Necrotic Tissue Type Adherent Slough Adherent Slough Adherent Slough -Structure Exposed N/A N/A Bone -Texture (Mahnaz-wound Skin Appearance) Scarring Scarring Assessed -Moisture (Mahnaz-wound Skin Appearance) No Abnormality No Abnormality Assessed -Color (Mahnaz-wound Skin Appearance) No Abnormality No Abnormality Assessed -Temperature (Mahnaz-wound Skin No Abnormality No Abnormality No Abnormality Appearance) (Pt Warm) (Pt Warm) (Pt Warm) -Tenderness on Palpation (Mahnaz-wound No No No Skin Appearance) -Ulcer Cleansing Soap and Water Soap and Water Wound Cleanser -Foul Odor after Cleansing No No No -Anesthetic Used 5% Lidocaine 5% Lidocaine 5% Lidocaine Gel Gel Gel WC - Nurse 2 - General Ulcer CM Notes Start: 08/16/22 09:35 Freq: Status: Active Protocol: Activity Type Activity Date Activity User E-sign Co-sign Detail Recorded Client Recorded Date Recorded By Document 08/16/22 10:15 [id number] 08/16/22 10:17 Document 08/21/22 10:58 [id number] 08/21/22 11:03 Document 08/30/22 10:14 [id number] 08/30/22 10:21 08/16/22 08/21/22 08/30/22 10:15 10:58 10:14 Wound Center Nurse 2 1. sacral -Time 10:16 11:01 10:15 -Correct Patient Yes Yes Yes -Correct Side, Site, Position Yes Yes Yes -Correct Procedure Yes Yes Yes -Procedure Performed Yes Yes Yes -Type of Procedure Debridement Debridement Debridement -Clinical Debridement Muscle / Fascia Muscle / Fascia Muscle / Fascia -Tissue Removed Muscle,Fascia Muscle,Fascia Muscle,Fascia -Post Debridement (cm) - Length 5 5.0 5.0 -Post Debridement (cm) - Width 4 4.6 3.5 -Post Debridement (cm) - Depth 0.6 1.0 0.6 -Total Square (Post) (cm) 20 23.00 17.50 -Area of Debridement (cm) - Length 5 5 5.0 -Area of Debridement (cm) - Width 4 4.6 3.5 -Total Square (Area) (cm) 20 23.0 17.50 -Tunneling No Yes Yes -Tunneling Position (O'clock) 11 11 -Tunneling Distance (cm) 1.1 0.6 -Undermining/Tunneling No No No -Circular Undermining No No No -Wound/Ulcer Outcome Not Healed Not Healed Not Healed -Ulcer Cleansing Rinsed/ Rinsed/ Rinsed/ Irrigated with Irrigated with Irrigated with Saline Saline Saline -Foul Odor after Cleansing No No No -Bioengineered Tissue No No No -Bleeding Controlled with Pressure Pressure Pressure -Treatment Response Procedure Procedure Procedure Tolerated Well Tolerated Well Tolerated Well -Offloading No No No -Debridement - Muscle / Fascia, 1st Yes Yes Yes 20sq cm -Debridement, Muscle/Fascia, ea addt'l 1 20sq cm or part thereof Pain Scale: 0-10 Numeric Is Patient Pain Free? Yes Yes Yes - Nurse 3 - General Ulcer D/C NN Start: 08/16/22 09:35 Freq: Status: Active Protocol: Activity Type Activity Date Activity User E-sign Co-sign Detail Recorded Client Recorded Date Recorded By Document 08/16/22 10:31 [id number] 08/16/22 10:33 JF Document 08/21/22 11:09 DL [id number] 08/21/22 11:10 DL Document 08/30/22 11:11 DL [id number] 08/30/22 11:12 DL 08/16/22 08/21/22 08/30/22 10:31 11:09 11:11 Wound Care Center Nurse 3 1. sacral -Ulcer Cleansing Rinsed/ Rinsed/ Soap and Water Irrigated with Irrigated with Saline Saline -Foul Odor after Cleansing No No -Negative Pressure Wound Therapy Continue -Setting (mmHg) 150 -Negative Pressure is Continuous -Other Dressing dakins dakins/ABD -Primary Dressing Covered/Secured with Secured with Secured with Tape Tape -Other Covering abd -NPWT Application Charge NPWT </= 50 sq cm ($) Treatment Response Procedure Procedure Procedure Tolerated Well Tolerated Well Tolerated Well Pain Scale: 0-10 Numeric Is Patient Pain Free? Yes Yes Yes - Visit Discharge Discharge Condition Stable Stable Stable Ambulatory Status Ambulatory, Ambulatory, Ambulatory, Walker Walker Walker Transportation Private Auto Private Auto Private Auto Facility Type Home Health Home Health Home Health Orders Sent Yes Yes Yes Assessment/Plan Assessment/Plan (1) Pressure ulcer of sacral region, stage 4: CODE(S): L89.154 - Pressure ulcer of sacral region, stage 4 (2) Rheumatoid arthritis: CODE(S): M06.9 - Rheumatoid arthritis, unspecified (3) Debility: CODE(S): R53.81 - Other malaise (4) Other acute postprocedural pain: CODE(S): G89.18 - Other acute postprocedural pain (5) Impacted cerumen of both ears: CODE(S): H61.23 - Impacted cerumen, bilateral PLAN: Plan Patient evaluated at the wound center today. Wound care - Restarted the wound VAC at 150 mmHg to be changed 3 times a week. Wash wound and mahnaz wound with soap and water at the time of the dressing change. She was placed on Diflucan for her positive operative fungal cultures. She still did not tolerate the Diflucan 200 mg daily. It upset her stomach and was causing her to have diarrhea. She stopped it a couple weeks ago. Discussed this with Dr. Lee and we will consult ID. Patient does not want to consult ID, so she states that she will try taking the Diflucan again because she was taking multiple meds at once and she does not know which one was causing the diarrhea. She will take it twice a day so it is not such a large dose at once. On 07/25/22 Alk Phos 152. Prealbumin 12.8 on 05/23/22. Encouraged increase protein supplementation. She state she is drinking Tommy 1-2 times per day in addition to her increase in dietary protein. Renewed her Neurontin. Follow 2 weeks, since I will be out of town. Call or come in sooner if develop any questions or concerns.
== END 2022-09-08 23:59 | disposition home or self-care (01) ==
LOC: WC 09:30
PROVIDERS: PCP Family Medicine; Visit Provider Nurse Practitioner Family
DX: L89.154 Pressure ulcer of sacral region, stage 4 (principal); M06.9 Rheumatoid arthritis, unspecified; M46.28 Osteomyelitis of vertebra, sacral and sacrococcygeal region; R53.81 Other malaise; G89.18 Other acute postprocedural pain; H61.23 Impacted cerumen, bilateral
CPT/HCPCS: 11043; 11046; 97605

== ENCOUNTER 2022-10-04 10:00 | Outpatient (RCR) | payer MEDICARE, OTHER, SELFPAY ==
[2022-09-09 00:52] VITALS: BP 133/79; PULSE 93; RESP 18; TEMP 36.1
[2022-09-13 11:01] VITALS: BP 119/73; PULSE 91; RESP 18; TEMP 36.1
--- NOTE | 2022-09-14 22:22 | PCM.WC.PN ---
History of Present Illness Date of Service: 09/13/22 Chief Complaint: Left sacral ulcer History of Wound: 72 year old female with below past medical history suffered fall from second story, hospitalized for multi trauma, underwent left tibia intramedullary nail fixation, right hip anterograde intramedullary nail, complicated by encephalopathy from urinary tract infection, stage 4 left sacral pressure ulcer with chronic osteomyelitis, admitted to TCU on 04/17/22 with debility, there for rehabilitation, strengthening, prior to discharge home alone on 06/25/22 with home health/PT/OT. Surgery 05/22/[address] Lee for Excision necrotic left sacral pressure sore, Stage IV, with partial ostectomy for osteomyelitis. Operative tissue cultures positive for Eschericha coli, Streptococcus sanguinis, Corynebacterium amycolatum, Provotella oralis, Anaerobic cocci, and most recently Fernanda albicans and Aspirgillus fumigatus. Operative bone culture positive for Provotella disiens and Fernanda albicans. She was treated with Levaquin and Augmentin. She developed muscle pain so the Levaquin was switched to Doxycycline. The fungal cultures just recently came back and we will start her on Diflucan. Wound care is wound VAC at 150 mmHg to be changed 3 times per week. She has home health to assist with the dressing changes. Today she denies fever, chills, nausea or vomiting. She states she is doing well at home. Progress of Wound: Left sacral ulcer is beefy pink with decreased depth, the bone remains covered today. Mahnaz wound is clear. She is having a lot of odor with the wound VAC. The depth has decreased to the point that the VAC may not be as effective. Objective Data Objective Data Vital Signs: Vital Signs Temp Pulse Resp BP O2 Del Method 97 F L 91 18 119/73 Room Air 09/13/22 11:01 09/13/22 11:01 09/13/22 11:01 09/13/22 11:01 09/13/22 11:01 Oxygen Delivery Method Room Air Weight: 124 lb Body Mass Index (BMI) 20.0 Charges/Coding Procedures Integumentary 111xxx-113xx: 82802 Dana subq tissue 20 sq cm/< Debridement Note Debridement Note Wound debrided: Sacral ulcer Laterality: Left Wound Grade/Stage: Stage IV Type of Debridement: Excisional debridement Anesthesia Used: 4% Lidocaine Solution and 5% Lidocaine Gel Depth: Down to and including healthy tissue and in the subcutaneous layer Percentage of wound debrided: 100 Instrument Used: 5mm curette Tissue Removed: Devitalized tissue and slough into the muscle Severity: Fat Layer Exposed Amount of bleeding with debridement: Mild Bleeding Controlled with: Pressure and Compression and gauze Patient tolerated procedure: Patient tolerated procedure well Post-Debridement Measurements and Additional Note: Post-Debridement Measurements/Treatment - Nurse 1 - General Ulcer Assessment Start: 09/13/22 11:00 Freq: Status: Active Protocol: JUSTIN Activity Type Activity Date Activity User E-sign Co-sign Detail Recorded Client Recorded Date Recorded By Document 09/13/22 11:01 [place] [employer] 09/13/22 11:17 [place] 09/13/22 11:01 - Today's Visit Information Type of service Follow-up Visit (Physician/MARINE ENGINE MACHINIST APPRENTICE ) Arrival Mode Ambulatory, Walker Accompanied by self Patient Identification Verified (Name & Yes ) Safety Precautions Fall Prevention Height and Weight Body Mass Index (BMI) 20.0 BMI Classification Normal Vital Signs Temperature (97.8 F-99.1 F) 97 F L Temperature Source Temporal Pulse Rate (60-100) 91 Pulse Location Monitor Respiratory Rate (12-18) 18 Respiratory rate source Observation Oxygen Delivery Method Room Air Blood Pressure (90/60-120/80) 119/73 Blood Pressure Mean (mm Hg) 88 Source Monitor Position Sitting Blood Pressure Location Left Arm History Since Last Visit- (Skip if this is Patient's initial visit) Have you been in the hospital since your No last visit? Has dressing in place as prescribed Yes Has compression in place as prescribed Yes Has offloadiing in place as prescribed Yes Left Footwear Regular Shoe Right Footwear Regular Shoe Pain Scale: 0-10 Numeric Is Patient Pain Free? Yes - Nurse 1 - General Ulcer Measurement Start: 09/13/22 11:00 Freq: Status: Active Protocol: Activity Type Activity Date Activity User E-sign Co-sign Detail Recorded Client Recorded Date Recorded By Document 09/13/22 11:01 IL [employer] 09/13/22 11:17 [place] 09/13/22 11:01 Wound Center Nurse 1 1. sacral -Current Size (cm) - Length 5 -Current Size (cm) - Width 4 -Current Size (cm) - Depth 0.9 -Total Square Cm 20 -Date of Last Picture (Recall this 09/13/22 field) -Photo Taken Yes -Exudate Amt Medium -Exudate Type Serosanguineous -Wound Margin Flat & Intact -Granulation Amt Large (67-100%) -Granulation Quality Pale,[place],Red -Necrosis Amt Small (1-33%) -Necrotic Tissue Type Adherent Slough -Texture (Mahnaz-wound Skin Appearance) Assessed -Moisture (Mahnaz-wound Skin Appearance) Assessed -Color (Mahnaz-wound Skin Appearance) Assessed -Temperature (Mahnaz-wound Skin No Abnormality Appearance) (Pt Warm) -Tenderness on Palpation (Mahnaz-wound No Skin Appearance) -Ulcer Cleansing Soap and Water -Foul Odor after Cleansing No -Anesthetic Used 4% Lidocaine Solution Lower Limb Edema Present NA BRADEN - Nurse 2 - General Ulcer CM Notes Start: 09/13/22 11:00 Freq: Status: Active Protocol: Activity Type Activity Date Activity User E-sign Co-sign Detail Recorded Client Recorded Date Recorded By Document 09/13/22 11:29 [email or web address] [id number] 09/13/22 11:32 HUMERA 09/13/22 11:29 Wound Center Nurse 2 1. sacral -Time 11:30 -Correct Patient Yes -Correct Side, Site, Position Yes -Correct Procedure Yes -Procedure Performed Yes -Type of Procedure Debridement -Clinical Debridement Subcutaneous -Tissue Removed Subcutaneous -Post Debridement (cm) - Length 4.4 -Post Debridement (cm) - Width 3.9 -Post Debridement (cm) - Depth 0.5 -Total Square (Post) (cm) 17.16 -Area of Debridement (cm) - Length 4.4 -Area of Debridement (cm) - Width 3.9 -Total Square (Area) (cm) 17.16 -Tunneling Yes -Tunneling Position (O'clock) 11 -Tunneling Distance (cm) 0.5 -Undermining/Tunneling No -Circular Undermining No -Wound/Ulcer Outcome Not Healed -Ulcer Cleansing Rinsed/ Irrigated with Saline -Foul Odor after Cleansing No -Bioengineered Tissue No -Bleeding Controlled with Pressure -Treatment Response Procedure Tolerated Well -Offloading No -Debridement - Subq, 1st 20sq cm Yes -Debridement - Muscle / Fascia, 1st No 20sq cm Pain Scale: 0-10 Numeric Is Patient Pain Free? Yes BRADEN - Nurse 3 - General Ulcer D/C NN Start: 09/13/22 11:00 Freq: Status: Active Protocol: Activity Type Activity Date Activity User E-sign Co-sign Detail Recorded Client Recorded Date Recorded By Document 09/13/22 11:46 IL [id number] 09/13/22 11:47 [place] 09/13/22 11:46 Wound Care Center Nurse 3 1. sacral -Ulcer Cleansing Soap and Water -Primary Dressing Applied [place] -Primary Dressing Covered/Secured with Dry Gauze, Secured with Tape -[place] 1 Pain Scale: 0-10 Numeric Is Patient Pain Free? Yes WC - Visit Discharge Discharge Condition Stable Ambulatory Status Ambulatory Transportation Private Auto Medication Reconcilliation completed & No provided to patient/care provider Clinical Summary of Care Provided Yes Assessment/Plan Assessment/Plan (1) Pressure ulcer of sacral region, stage 4: CODE(S): L89.154 - Pressure ulcer of sacral region, stage 4 (2) Rheumatoid arthritis: CODE(S): M06.9 - Rheumatoid arthritis, unspecified (3) Debility: CODE(S): R53.81 - Other malaise (4) Other acute postprocedural pain: CODE(S): G89.18 - Other acute postprocedural pain (5) Impacted cerumen of both ears: CODE(S): H61.23 - Impacted cerumen, bilateral PLAN: Plan Patient evaluated at the wound center today. Wound care - Will take a wound VAC holiday this week to see how she tolerates [place] dressing changes 3 times per week. Wash wound and mahnaz wound with soap and water at the time of the dressing change. I would like her to learn how to do the dressing changes on the day that home health is not able to do them. She is resistant to learning how to change this dressing and is adamant that she has no one to help her change it. She was placed on Diflucan for her positive operative fungal cultures. She still did not tolerate the Diflucan 200 mg daily. It upset her stomach and was causing her to have diarrhea. She stopped it a couple weeks ago. Discussed this with Dr. Lee and we will consult ID. Patient does not want to consult ID, so she states that she will try taking the Diflucan again because she was taking multiple meds at once and she does not know which one was causing the diarrhea. She will take it twice a day so it is not such a large dose at once. On 07/25/22 Alk Phos 152. Prealbumin 12.8 on 05/23/22. Encouraged increase protein supplementation. She state she is drinking Tommy 1-2 times per day in addition to her increase in dietary protein. Follow 1 week. Call or come in sooner if develop any questions or concerns.
[2022-09-20 10:21] VITALS: BP 142/80; PULSE 71; RESP 16; TEMP 36.1
--- NOTE | 2022-09-20 10:42 | PN.PCM_ITS ---
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 Surgery 05/22/[address] Lee for Excision necrotic left sacral pressure sore, Stage IV, with partial ostectomy for osteomyelitis. Operative tissue cultures positive for Eschericha coli, Streptococcus sanguinis, Corynebacterium amycolatum, Provotella oralis, Anaerobic cocci, and most recently Fernanda albicans and Aspirgillus fumigatus. Operative bone culture positive for Provotella disiens and Fernanda albicans. She was treated with Levaquin and Augmentin. She developed muscle pain so the Levaquin was switched to Doxycycline. The fungal cultures just recently came back and we will start her on Diflucan. Wound care is wound Silver alginate to be changed 3 times per week and as needed. She has home health to assist with the dressing changes. Today she denies fever, chills, nausea or vomiting. She states she is doing well at home. Progress of Wound: Left sacral ulcer is beefy pink with decreased depth, the bone is covered. Mahnaz wound is clear. She was having a lot of odor with the wound VAC, since doing the silver dressing changes, the odor has resolved. Objective Data Objective Data Vital Signs: Vital Signs Temp Pulse Resp BP O2 Del Method 96.9 F L 71 16 142/80 H Room Air 09/20/22 10:21 09/20/22 10:21 09/20/22 10:21 09/20/22 10:09/13/22 11:01 Oxygen Delivery Method Room Air Weight: 124 lb Body Mass Index (BMI) 20.0 Charges/Coding Procedures Integumentary 111xxx-113xx: 22689 Dana subq tissue 20 sq cm/< Debridement Note Debridement Note Wound debrided: Sacral ulcer Laterality: Left Wound Grade/Stage: Stage IV Type of Debridement: Excisional debridement Anesthesia Used: 4% Lidocaine Solution and 5% Lidocaine Gel Depth: Down to and including healthy tissue and in the subcutaneous layer Percentage of wound debrided: 100 Instrument Used: 5mm curette Tissue Removed: Devitalized tissue and slough Severity: Fat Layer Exposed Amount of bleeding with debridement: Mild Bleeding Controlled with: Pressure and Compression and gauze Patient tolerated procedure: Patient tolerated procedure well Post-Debridement Measurements and Additional Note: Post-Debridement Measurements/Treatment - Nurse 1 - General Ulcer Assessment Start: 09/13/22 11:00 Freq: Status: Active Protocol: JUSTIN Activity Type Activity Date Activity User E-sign Co-sign Detail Recorded Client Recorded Date Recorded By Document 09/13/22 11:01 MI Desktop 09/13/22 11:17 MT Document 09/20/22 10:21 [id number] 09/20/22 10:23 09/13/22 09/20/22 11:01 10:21 - Today's Visit Information Type of service Follow-up Visit Follow-up Visit (Physician/CLINICAL DATA MANAGEMENT DIRECTOR (Physician/CLINICAL DATA MANAGEMENT DIRECTOR ) ) Arrival Mode Ambulatory, Ambulatory, Walker Walker Accompanied by self Patient Identification Verified (Name & Yes ) Patient Requires Transmission-Based No Precautions Safety Precautions Fall Prevention Height and Weight Body Mass Index (BMI) 20.0 20.0 BMI Classification Normal Normal Vital Signs Temperature (97.8 F-99.1 F) 97 F L 96.9 F L Temperature Source Temporal Temporal Pulse Rate (60-100) 91 71 Pulse Location Monitor Monitor Respiratory Rate (12-18) 18 16 Respiratory rate source Observation Observation Oxygen Delivery Method Room Air Blood Pressure (90/60-120/80) 119/73 142/80 H Blood Pressure Mean (mm Hg) 88 100 Source Monitor Monitor Position Sitting Sitting Blood Pressure Location Left Arm Left Arm History Since Last Visit- (Skip if this is Patient's initial visit) Have you changed medications since your No last visit? Any new allergies or adverse reactions No Had a fall/change in ADL's that may No increase risk of falls Signs or symptoms of abuse and/or No neglect since last visit Have you been in the hospital since your No No last visit? Has dressing in place as prescribed Yes Yes Has compression in place as prescribed Yes N/A Has offloadiing in place as prescribed Yes N/A Experienced any changes in pain level or No management Left Footwear Regular Shoe Regular Shoe Right Footwear Regular Shoe Regular Shoe Pain Scale: 0-10 Numeric Is Patient Pain Free? Yes Yes BRADEN - Nurse 1 - General Ulcer Measurement Start: 09/13/22 11:00 Freq: Status: Active Protocol: Activity Type Activity Date Activity User E-sign Co-sign Detail Recorded Client Recorded Date Recorded By Document 09/13/22 11:01 MI Desktop 09/13/22 11:17 MT Document 09/20/22 10:21 [id number] 09/20/22 10:23 09/13/22 09/20/22 11:01 10:21 Wound Center Nurse 1 1. sacral -Combined with other wound No -Current Size (cm) - Length 5 4.2 -Current Size (cm) - Width 4 3.5 -Current Size (cm) - Depth 0.9 0.3 -Total Square Cm 20 14.70 -Date of Last Picture (Recall this 09/13/22 field) -Photo Taken Yes Yes -Epithelialization Small 1-33% -Tunneling No -Undermining/Tunneling No -Circular Undermining No -Exudate Amt Medium Large -Exudate Type Serosanguineous Serosanguineous -Wound Margin Flat & Intact Flat & Intact -Granulation Amt Large (67-100%) Large (67-100%) -Granulation Quality Pale,[place],Red [place] -Slough/Fibrin Yes -Necrosis Amt Small (1-33%) Small (1-33%) -Necrotic Tissue Type Adherent Slough Adherent Slough -Structure Exposed N/A -Texture (Mahnaz-wound Skin Appearance) Assessed Assessed, Scarring -Moisture (Mahnaz-wound Skin Appearance) Assessed Assessed,Dry/ Scaly -Color (Mahnaz-wound Skin Appearance) Assessed Assessed -Temperature (Mahnaz-wound Skin No Abnormality No Abnormality Appearance) (Pt Warm) (Pt Warm) -Tenderness on Palpation (Mahnaz-wound No No Skin Appearance) -Ulcer Cleansing Soap and Water Wound Cleanser -Foul Odor after Cleansing No No -Anesthetic Used 4% Lidocaine 5% Lidocaine Solution Gel Lower Limb Edema Present NA NA BARDEN - Nurse 2 - General Ulcer CM Notes Start: 09/13/22 11:00 Freq: Status: Active Protocol: Activity Type Activity Date Activity User E-sign Co-sign Detail Recorded Client Recorded Date Recorded By Document 09/13/22 11:29 [id number] 09/13/22 11:32 Document 09/20/22 10:23 [id number] 09/20/22 10:25 09/13/22 09/20/22 11:29 10:23 Wound Center Nurse 2 1. sacral -Time 11:30 10:24 -Correct Patient Yes Yes -Correct Side, Site, Position Yes Yes -Correct Procedure Yes Yes -Procedure Performed Yes Yes -Type of Procedure Debridement Debridement -Clinical Debridement Subcutaneous Subcutaneous -Tissue Removed Subcutaneous Subcutaneous -Post Debridement (cm) - Length 4.4 4 -Post Debridement (cm) - Width 3.9 4 -Post Debridement (cm) - Depth 0.5 0.6 -Total Square (Post) (cm) 17.16 16 -Area of Debridement (cm) - Length 4.4 4 -Area of Debridement (cm) - Width 3.9 4 -Total Square (Area) (cm) 17.16 16 -Tunneling Yes No -Tunneling Position (O'clock) 11 -Tunneling Distance (cm) 0.5 -Undermining/Tunneling No Yes -Undermining/Tunneling Starts (O'clock 10 ) -Undermining/Tunneling Ends (O'clock) 12 -Maximum Distance (cm) 0.6 -Circular Undermining No No -Wound/Ulcer Outcome Not Healed Not Healed -Ulcer Cleansing Rinsed/ Rinsed/ Irrigated with Irrigated with Saline Saline -Foul Odor after Cleansing No No -Bioengineered Tissue No No -Bleeding Controlled with Pressure Pressure -Treatment Response Procedure Procedure Tolerated Well Tolerated Well -Offloading No No -Debridement - Subq, 1st 20sq cm Yes Yes -Debridement - Muscle / Fascia, 1st No 20sq cm Pain Scale: 0-10 Numeric Is Patient Pain Free? Yes Yes - Nurse 3 - General Ulcer D/C NN Start: 09/13/22 11:00 Freq: Status: Active Protocol: Activity Type Activity Date Activity User E-sign Co-sign Detail Recorded Client Recorded Date Recorded By Document 09/13/22 11:46 MI [id number] 09/13/22 11:47 MI 09/13/22 11:46 Wound Care Center Nurse 3 1. sacral -Ulcer Cleansing Soap and Water -Primary Dressing Applied Silvercel -Primary Dressing Covered/Secured with Dry Gauze, Secured with Tape -Silvercel 1 Pain Scale: 0-10 Numeric Is Patient Pain Free? Yes WC - Visit Discharge Discharge Condition Stable Ambulatory Status Ambulatory Transportation Private Auto Medication Reconcilliation completed & No provided to patient/care provider Clinical Summary of Care Provided Yes Assessment/Plan Assessment/Plan (1) Pressure ulcer of sacral region, stage 4: CODE(S): L89.154 - Pressure ulcer of sacral region, stage 4 (2) Rheumatoid arthritis: CODE(S): M06.9 - Rheumatoid arthritis, unspecified (3) Debility: CODE(S): R53.81 - Other malaise (4) Other acute postprocedural pain: CODE(S): G89.18 - Other acute postprocedural pain (5) Impacted cerumen of both ears: CODE(S): H61.23 - Impacted cerumen, bilateral PLAN: Plan Patient evaluated at the wound center today. Wound care - Silvercel dressing topped with fluffed gauze and then ABD to be changed 3 times per week and as needed. Wash wound and mahnaz wound with soap and water at the time of the dressing change. I would like her to learn how to do the dressing changes on the day that home health is not able to do them. She is resistant to learning how to change this dressing and is adamant that she has no one to help her change it. Instructed her to return the wound VAC. She was placed on Diflucan for her positive operative fungal cultures. She still did not tolerate the Diflucan 200 mg daily. It upset her stomach and was causing her to have diarrhea. She stopped it a couple weeks ago. Discussed this with Dr. Lee and we will consult ID. Patient does not want to consult ID, so she states that she will try taking the Diflucan again because she was taking multiple meds at once and she does not know which one was causing the diarrhea. She will take it twice a day so it is not such a large dose at once. On 07/25/22 Alk Phos 152. Prealbumin 12.8 on 05/23/22. Encouraged increase protein supplementation. She state she is drinking Tommy 1-2 times per day in addition to her increase in dietary protein. Follow 1 week. Call or come in sooner if develop any questions or concerns.
[2022-09-27 10:26] VITALS: BP 137/74; PULSE 76; RESP 16; TEMP 35.8
--- NOTE | 2022-09-27 11:34 | PN.PCM_ITS ---
History of Present Illness Date of Service: 09/27/22 Chief Complaint: Left sacral ulcer History of Wound: 72 year old female with below past medical history suffered fall from second story, hospitalized for multi trauma, underwent left tibia intramedullary nail fixation, right hip anterograde intramedullary nail, complicated by encephalopathy from urinary tract infection, stage 4 left sacral pressure ulcer with chronic osteomyelitis, admitted to TCU on 04/17/22 with debility, there for rehabilitation, strengthening, prior to discharge home alone on 06/25/22 with home health/PT/OT. Surgery 05/22/[address] Lee for Excision necrotic left sacral pressure sore, Stage IV, with partial ostectomy for osteomyelitis. Operative tissue cultures positive for Eschericha coli, Streptococcus sanguinis, Corynebacterium amycolatum, Provotella oralis, Anaerobic cocci, and most recently Fernanda albicans and Aspirgillus fumigatus. Operative bone culture positive for Provotella disiens and Fernanda albicans. She was treated with Levaquin and Augmentin. She developed muscle pain so the Levaquin was switched to Doxycycline. The fungal cultures just recently came back and we will start her on Diflucan. Wound care is wound Silver alginate to be changed 3 times per week and as needed. She has home health to assist with the dressing changes. Today she denies fever, chills, nausea or vomiting. She states she is doing well at home. Progress of Wound: Left sacral ulcer is beefy pink and smaller in size. Undermining is smaller. Mahnaz wound is clear. Objective Data Objective Data Vital Signs: Vital Signs Temp Pulse Resp BP O2 Del Method 96.4 F L 76 16 137/74 H Room Air 09/27/22 10:26 09/27/22 10:26 09/27/22 10:26 09/27/22 10:26 09/27/22 10:26 Oxygen Delivery Method Room Air Weight: 124 lb Body Mass Index (BMI) 20.0 Charges/Coding Procedures Integumentary 111xxx-113xx: 59516 Dana subq tissue 20 sq cm/< Debridement Note Debridement Note Wound debrided: Sacral ulcer Laterality: Left Wound Grade/Stage: Stage IV Type of Debridement: Excisional debridement Anesthesia Used: 4% Lidocaine Solution and 5% Lidocaine Gel Depth: Down to and including healthy tissue and in the subcutaneous layer Percentage of wound debrided: 100 Instrument Used: 5mm curette Tissue Removed: Devitalized tissue and slough Severity: Fat Layer Exposed Amount of bleeding with debridement: Mild Bleeding Controlled with: Pressure and Compression and gauze Patient tolerated procedure: Patient tolerated procedure well Post-Debridement Measurements and Additional Note: Post-Debridement Measurements/Treatment - Nurse 1 - General Ulcer Assessment Start: 09/13/22 11:00 Freq: Status: Active Protocol: JUSTIN Activity Type Activity Date Activity User E-sign Co-sign Detail Recorded Client Recorded Date Recorded By Document 09/13/22 11:01 WA Desktop 09/13/22 11:17 WA Document 09/20/22 10:21 [id number] 09/20/22 10:23 Document 09/27/22 10:26 [facility] [id number] 09/27/22 10:36 BM 09/13/22 09/20/22 09/27/22 11:01 10:21 10:26 - Today's Visit Information Type of service Follow-up Visit Follow-up Visit Follow-up Visit (Physician/TROLLEY CAR MECHANIC (Physician/TROLLEY CAR MECHANIC (Physician/TROLLEY CAR MECHANIC ) ) ) Arrival Mode Ambulatory, Ambulatory, Ambulatory Walker Walker Transfer Assistance None Accompanied by self Patient Identification Verified (Name & Yes Yes ) Patient Requires Transmission-Based No No Precautions Safety Precautions Fall Prevention Height and Weight Body Mass Index (BMI) 20.0 20.0 20.0 BMI Classification Normal Normal Normal Vital Signs Temperature (97.8 F-99.1 F) 97 F L 96.9 F L 96.4 F L Temperature Source Temporal Temporal Temporal Pulse Rate (60-100) 91 71 76 Pulse Location Monitor Monitor Monitor Respiratory Rate (12-18) 18 16 16 Respiratory rate source Observation Observation Observation Oxygen Delivery Method Room Air Room Air Blood Pressure (90/60-120/80) 119/73 142/80 H 137/74 H Blood Pressure Mean (mm Hg) 88 100 95 Source Monitor Monitor Monitor Position Sitting Sitting Sitting Blood Pressure Location Left Arm Left Arm Left Arm History Since Last Visit- (Skip if this is Patient's initial visit) Have you changed medications since your No No last visit? Any new allergies or adverse reactions No No Had a fall/change in ADL's that may No No increase risk of falls Signs or symptoms of abuse and/or No No neglect since last visit Have you been in the hospital since your No No No last visit? Has dressing in place as prescribed Yes Yes Yes Has compression in place as prescribed Yes N/A N/A Has offloadiing in place as prescribed Yes N/A N/A Experienced any changes in pain level or No No management Left Footwear Regular Shoe Regular Shoe Regular Shoe Right Footwear Regular Shoe Regular Shoe Regular Shoe Pain Scale: 0-10 Numeric Is Patient Pain Free? Yes Yes Yes - Nurse 1 - General Ulcer Measurement Start: 09/13/22 11:00 Freq: Status: Active Protocol: Activity Type Activity Date Activity User E-sign Co-sign Detail Recorded Client Recorded Date Recorded By Document 09/13/22 11:01 WA Desktop 09/13/22 11:17 WA Document 09/20/22 10:21 [id number] 09/20/22 10:23 Document 09/27/22 10:26 [facility] [id number] 09/27/22 10:36 [facility] 09/13/22 09/20/22 09/27/22 11:01 10:21 10:26 Wound Center Nurse 1 1. sacral -Combined with other wound No No -Current Size (cm) - Length 5 4.2 4.2 -Current Size (cm) - Width 4 3.5 2.9 -Current Size (cm) - Depth 0.9 0.3 0.4 -Total Square Cm 20 14.70 12.18 -Date of Last Picture (Recall this 09/13/22 09/27/22 field) -Photo Taken Yes Yes Yes -Epithelialization Small 1-33% Small 1-33% -Tunneling No Yes -Tunneling Position (O'clock) 10 -Tunneling Distance (cm) 0.5 -Undermining/Tunneling No No -Circular Undermining No No -Exudate Amt Medium Large Large -Exudate Type Serosanguineous Serosanguineous Serosanguineous -Wound Margin Flat & Intact Flat & Intact Thickened & Rolled Under -Granulation Amt Large (67-100%) Large (67-100%) Large (67-100%) -Granulation Quality Pale,[place],Red [place] Red -Slough/Fibrin Yes Yes -Necrosis Amt Small (1-33%) Small (1-33%) Small (1-33%) -Necrotic Tissue Type Adherent Slough Adherent Slough Adherent Slough -Structure Exposed N/A -Texture (Amhnaz-wound Skin Appearance) Assessed Assessed, Assessed, Scarring Scarring -Moisture (Mahnaz-wound Skin Appearance) Assessed Assessed,Dry/ Assessed Scaly -Color (Mahnaz-wound Skin Appearance) Assessed Assessed Assessed -Temperature (Mahnaz-wound Skin No Abnormality No Abnormality No Abnormality Appearance) (Pt Warm) (Pt Warm) (Pt Warm) -Tenderness on Palpation (Mahnaz-wound No No No Skin Appearance) -Ulcer Cleansing Soap and Water Wound Cleanser Rinsed/ Irrigated with Saline -Foul Odor after Cleansing No No No -Anesthetic Used 4% Lidocaine 5% Lidocaine 5% Lidocaine Solution Gel Gel Lower Limb Edema Present NA NA WC - Nurse 2 - General Ulcer CM Notes Start: 09/13/22 11:00 Freq: Status: Active Protocol: Activity Type Activity Date Activity User E-sign Co-sign Detail Recorded Client Recorded Date Recorded By Document 09/13/22 11:29 [id number] 09/13/22 11:32 Document 09/20/22 10:23 [id number] 09/20/22 10:25 Document 09/27/22 10:57 [id number] 09/27/22 10:59 09/13/22 09/20/22 09/27/22 11:29 10:23 10:57 Wound Center Nurse 2 1. sacral -Time 11:30 10:24 10:57 -Correct Patient Yes Yes Yes -Correct Side, Site, Position Yes Yes Yes -Correct Procedure Yes Yes Yes -Procedure Performed Yes Yes Yes -Type of Procedure Debridement Debridement Debridement -Clinical Debridement Subcutaneous Subcutaneous Subcutaneous -Tissue Removed Subcutaneous Subcutaneous Subcutaneous -Post Debridement (cm) - Length 4.4 4 4.5 -Post Debridement (cm) - Width 3.9 4 2.9 -Post Debridement (cm) - Depth 0.5 0.6 0.3 -Total Square (Post) (cm) 17.16 16 13.05 -Area of Debridement (cm) - Length 4.4 4 4.5 -Area of Debridement (cm) - Width 3.9 4 2.9 -Total Square (Area) (cm) 17.16 16 13.05 -Tunneling Yes No No -Tunneling Position (O'clock) 11 -Tunneling Distance (cm) 0.5 -Undermining/Tunneling No Yes Yes -Undermining/Tunneling Starts (O'clock 10 10 ) -Undermining/Tunneling Ends (O'clock) 12 11 -Maximum Distance (cm) 0.6 0.4 -Circular Undermining No No No -Wound/Ulcer Outcome Not Healed Not Healed Not Healed -Ulcer Cleansing Rinsed/ Rinsed/ Rinsed/ Irrigated with Irrigated with Irrigated with Saline Saline Saline -Foul Odor after Cleansing No No No -Bioengineered Tissue No No No -Bleeding Controlled with Pressure Pressure Pressure -Treatment Response Procedure Procedure Procedure Tolerated Well Tolerated Well Tolerated Well -Offloading No No No -Debridement - Subq, 1st 20sq cm Yes Yes Yes -Debridement - Muscle / Fascia, 1st No 20sq cm Pain Scale: 0-10 Numeric Is Patient Pain Free? Yes Yes Yes - Nurse 3 - General Ulcer D/C NN Start: 09/13/22 11:00 Freq: Status: Active Protocol: Activity Type Activity Date Activity User E-sign Co-sign Detail Recorded Client Recorded Date Recorded By Document 09/13/22 11:46 WA [id number] 09/13/22 11:47 WA Document 09/20/22 10:41 PL [id number] 09/20/22 10:42 PL Document 09/27/22 11:06 [facility] [id number] 09/27/22 11:08 [facility] 09/13/22 09/20/22 09/27/22 11:46 10:41 11:06 Wound Care Center Nurse 3 1. sacral -Ulcer Cleansing Soap and Water Rinsed/ Rinsed/ Irrigated with Irrigated with Saline Saline -Foul Odor after Cleansing No No -Negative Pressure Wound Therapy Discontinue -Primary Dressing Applied Silvercel Silvercel Silvercel -Other Dressing ABD FLUFFED GAUZE; ABD -Primary Dressing Covered/Secured with Dry Gauze, Dry Gauze, Dry Gauze, Secured with Secured with Secured with Tape Tape Tape -Silvercel 1 1 1 Treatment Response Procedure Tolerated Well Pain Scale: 0-10 Numeric Is Patient Pain Free? Yes Yes Yes WC - Visit Discharge Discharge Condition Stable Stable Stable Ambulatory Status Ambulatory Walker Ambulatory, Walker Transportation Private Auto Private Auto Private Auto Medication Reconcilliation completed & No provided to patient/care provider Clinical Summary of Care Provided Yes Facility Type Home Health Assessment/Plan Assessment/Plan (1) Pressure ulcer of sacral region, stage 4: CODE(S): L89.154 - Pressure ulcer of sacral region, stage 4 (2) Rheumatoid arthritis: CODE(S): M06.9 - Rheumatoid arthritis, unspecified (3) Debility: CODE(S): R53.81 - Other malaise (4) Other acute postprocedural pain: CODE(S): G89.18 - Other acute postprocedural pain (5) Impacted cerumen of both ears: CODE(S): H61.23 - Impacted cerumen, bilateral PLAN: Plan Patient evaluated at the wound center today. Wound care - Silvercel dressing topped with fluffed gauze and then ABD to be changed 3 times per week and as needed. Wash ulcer and mahnaz wound with soap and water at the time of the dressing change. I would like her to learn how to do the dressing changes on the day that home health is not able to do them. She is resistant to learning how to change this dressing and is adamant that she has no one to help her change it. She was placed on Diflucan for her positive operative fungal cultures. She still did not tolerate the Diflucan 200 mg daily. It upset her stomach and was causing her to have diarrhea. She stopped it a couple weeks ago. Discussed this with Dr. Lee and we will consult ID. Patient does not want to consult ID, so she states that she will try taking the Diflucan again because she was taking multiple meds at once and she does not know which one was causing the diarrhea. She will take it twice a day so it is not such a large dose at once. On 07/25/22 Alk Phos 152. Prealbumin 12.8 on 05/23/22. Encouraged increase protein supplementation. She state she is drinking Tommy 1-2 times per day in addition to her increase in dietary protein. Follow 1 week. Call or come in sooner if develop any questions or concerns.
--- NOTE | 2022-10-03 07:31 | WC ---
Jeny from [facility] called stating that at her visit with patient today she noticed darker drainage and an increase in drainage and some odor. Her seamus-ulcer is more red than last week. Patient is scheduled on Weds with Magda Baker NP and was made aware of findings. Patient's current treatment is Dakin's. Will discuss and assess wound 10/04/22 and formulate a new plan.
[2022-10-04 10:04] VITALS: BP 150/79; PULSE 86; RESP 16; TEMP 35.6
--- NOTE | 2022-10-04 10:31 | PCM.WC.PN ---
History of Present Illness Date of Service: 10/04/22 Chief Complaint: Left sacral ulcer History of Wound: 72 year old female with below past medical history suffered fall from second story, hospitalized for multi trauma, underwent left tibia intramedullary nail fixation, right hip anterograde intramedullary nail, complicated by encephalopathy from urinary tract infection, stage 4 left sacral pressure ulcer with chronic osteomyelitis, admitted to TCU on 04/17/22 with debility, there for rehabilitation, strengthening, prior to discharge home alone on 06/25/22 with home health/PT/OT. Surgery 05/22/[address] Lee for Excision necrotic left sacral pressure sore, Stage IV, with partial ostectomy for osteomyelitis. Operative tissue cultures positive for Eschericha coli, Streptococcus sanguinis, Corynebacterium amycolatum, Provotella oralis, Anaerobic cocci, and most recently Fernanda albicans and Aspirgillus fumigatus. Operative bone culture positive for Provotella disiens and Fernanda albicans. She was treated with Levaquin and Augmentin. She developed muscle pain so the Levaquin was switched to Doxycycline. The fungal cultures just recently came back and we will start her on Diflucan. Wound care is wound Silver alginate to be changed 3 times per week and as needed. She has home health to assist with the dressing changes. Today she denies fever, chills, nausea or vomiting. She states she is doing well at home. Progress of Wound: Left sacral ulcer is beefy pink and smaller in size. Undermining is smaller. Mahnaz wound is pink and excoriated, it is most likely from moisture due to her dressing only getting changed 3 times per week. Objective Data Objective Data Vital Signs: Vital Signs Temp Pulse Resp BP O2 Del Method 96.1 F L 86 16 150/79 H Room Air 10/04/22 10:04 10/04/22 10:04 10/04/22 10:04 10/04/22 10:09/27/22 10:26 Oxygen Delivery Method Room Air Weight: 124 lb Body Mass Index (BMI) 20.0 Charges/Coding Procedures Integumentary 111xxx-113xx: [id number] Dana subq tissue 20 sq cm/< Debridement Note Debridement Note Wound debrided: Sacral ulcer Laterality: Left Wound Grade/Stage: Stage IV Type of Debridement: Excisional debridement Anesthesia Used: 4% Lidocaine Solution and 5% Lidocaine Gel Depth: Down to and including healthy tissue and in the subcutaneous layer Percentage of wound debrided: 100 Instrument Used: 5mm curette Tissue Removed: Devitalized tissue and slough Severity: Fat Layer Exposed Amount of bleeding with debridement: Mild Bleeding Controlled with: Pressure and Compression and gauze Patient tolerated procedure: Patient tolerated procedure well Post-Debridement Measurements and Additional Note: Post-Debridement Measurements/Treatment - Nurse 1 - General Ulcer Assessment Start: 09/13/22 11:00 Freq: Status: Active Protocol: JUSTIN Activity Type Activity Date Activity User E-sign Co-sign Detail Recorded Client Recorded Date Recorded By Document 09/13/22 11:01 KS Desktop 09/13/22 11:17 [place] Document 09/20/22 10:21 [id number] 09/20/22 10:23 Document 09/27/22 10:26 [facility] [id number] 09/27/22 10:36 [facility] Document 10/04/22 10:04 [id number] 10/04/22 10:12 09/13/22 09/20/22 09/27/22 11:01 10:21 10:26 - Today's Visit Information Type of service Follow-up Visit Follow-up Visit Follow-up Visit (Physician/ENGINEER BOOSTER AND EXHAUSTER (Physician/ENGINEER BOOSTER AND EXHAUSTER (Physician/ENGINEER BOOSTER AND EXHAUSTER ) ) ) Arrival Mode Ambulatory, Ambulatory, Ambulatory Walker Walker Transfer Assistance None Accompanied by self Patient Identification Verified (Name & Yes Yes ) Patient Requires Transmission-Based No No Precautions Safety Precautions Fall Prevention Height and Weight Body Mass Index (BMI) 20.0 20.0 20.0 BMI Classification Normal Normal Normal Vital Signs Temperature (97.8 F-99.1 F) 97 F L 96.9 F L 96.4 F L Temperature Source Temporal Temporal Temporal Pulse Rate (60-100) 91 71 76 Pulse Location Monitor Monitor Monitor Respiratory Rate (12-18) 18 16 16 Respiratory rate source Observation Observation Observation Oxygen Delivery Method Room Air Room Air Blood Pressure (90/60-120/80) 119/73 142/80 H 137/74 H Blood Pressure Mean (mm Hg) 88 100 95 Source Monitor Monitor Monitor Position Sitting Sitting Sitting Blood Pressure Location Left Arm Left Arm Left Arm History Since Last Visit- (Skip if this is Patient's initial visit) Have you changed medications since your No No last visit? Any new allergies or adverse reactions No No Had a fall/change in ADL's that may No No increase risk of falls Signs or symptoms of abuse and/or No No neglect since last visit Have you been in the hospital since your No No No last visit? Has dressing in place as prescribed Yes Yes Yes Has compression in place as prescribed Yes N/A N/A Has offloadiing in place as prescribed Yes N/A N/A Experienced any changes in pain level or No No management Left Footwear Regular Shoe Regular Shoe Regular Shoe Right Footwear Regular Shoe Regular Shoe Regular Shoe Pain Scale: 0-10 Numeric Is Patient Pain Free? Yes Yes Yes 10/04/22 10:04 WC - Today's Visit Information Type of service Follow-up Visit (Physician/ENGINEER BOOSTER AND EXHAUSTER ) Arrival Mode Ambulatory, Walker Transfer Assistance Accompanied by Patient Identification Verified (Name & Yes ) Patient Requires Transmission-Based No Precautions Safety Precautions Height and Weight Body Mass Index (BMI) 20.0 BMI Classification Normal Vital Signs Temperature (97.8 F-99.1 F) 96.1 F L Temperature Source Temporal Pulse Rate (60-100) 86 Pulse Location Monitor Respiratory Rate (12-18) 16 Respiratory rate source Observation Oxygen Delivery Method Blood Pressure (90/60-120/80) 150/79 H Blood Pressure Mean (mm Hg) 102 Source Monitor Position Semi-Fowlers Blood Pressure Location Left Arm History Since Last Visit- (Skip if this is Patient's initial visit) Have you changed medications since your No last visit? Any new allergies or adverse reactions No Had a fall/change in ADL's that may No increase risk of falls Signs or symptoms of abuse and/or No neglect since last visit Have you been in the hospital since your No last visit? Has dressing in place as prescribed Yes Has compression in place as prescribed N/A Has offloadiing in place as prescribed Yes Experienced any changes in pain level or No management Left Footwear Regular Shoe Right Footwear Regular Shoe Pain Scale: 0-10 Numeric Is Patient Pain Free? Yes - Nurse 1 - General Ulcer Measurement Start: 09/13/22 11:00 Freq: Status: Active Protocol: Activity Type Activity Date Activity User E-sign Co-sign Detail Recorded Client Recorded Date Recorded By Document 09/13/22 11:01 MT Desktop 09/13/22 11:17 [place] Document 09/20/22 10:21 [id number] 09/20/22 10:23 Document 09/27/22 10:26 [facility] [id number] 09/27/22 10:36 [facility] Document 10/04/22 10:04 [id number] 10/04/22 10:12 09/13/22 09/20/22 09/27/22 11:01 10:21 10:26 Wound Center Nurse 1 1. sacral -Combined with other wound No No -Current Size (cm) - Length 5 4.2 4.2 -Current Size (cm) - Width 4 3.5 2.9 -Current Size (cm) - Depth 0.9 0.3 0.4 -Total Square Cm 20 14.70 12.18 -Date of Last Picture (Recall this 09/13/22 09/27/22 field) -Photo Taken Yes Yes Yes -Epithelialization Small 1-33% Small 1-33% -Tunneling No Yes -Tunneling Position (O'clock) 10 -Tunneling Distance (cm) 0.5 -Undermining/Tunneling No No -Circular Undermining No No -Exudate Amt Medium Large Large -Exudate Type Serosanguineous Serosanguineous Serosanguineous -Wound Margin Flat & Intact Flat & Intact Thickened & Rolled Under -Granulation Amt Large (67-100%) Large (67-100%) Large (67-100%) -Granulation Quality Pale,[place],Red [place] Red -Slough/Fibrin Yes Yes -Necrosis Amt Small (1-33%) Small (1-33%) Small (1-33%) -Necrotic Tissue Type Adherent Slough Adherent Slough Adherent Slough -Structure Exposed N/A -Texture (Mahnaz-wound Skin Appearance) Assessed Assessed, Assessed, Scarring Scarring -Moisture (Mahnaz-wound Skin Appearance) Assessed Assessed,Dry/ Assessed Scaly -Color (Mahnaz-wound Skin Appearance) Assessed Assessed Assessed -Temperature (Mahnaz-wound Skin No Abnormality No Abnormality No Abnormality Appearance) (Pt Warm) (Pt Warm) (Pt Warm) -Tenderness on Palpation (Mahnaz-wound No No No Skin Appearance) -Ulcer Cleansing Soap and Water Wound Cleanser Rinsed/ Irrigated with Saline -Foul Odor after Cleansing No No No -Anesthetic Used 4% Lidocaine 5% Lidocaine 5% Lidocaine Solution Gel Gel Lower Limb Edema Present NA VENITA 10/04/22 10:04 Wound Center Nurse 1 1. sacral -Combined with other wound No -Current Size (cm) - Length 4.0 -Current Size (cm) - Width 2.5 -Current Size (cm) - Depth 0.3 -Total Square Cm 10.00 -Date of Last Picture (Recall this field) -Photo Taken Yes -Epithelialization Medium 34-66% -Tunneling No -Tunneling Position (O'clock) -Tunneling Distance (cm) -Undermining/Tunneling No -Circular Undermining No -Exudate Amt Medium -Exudate Type Serosanguineous -Wound Margin Flat & Intact -Granulation Amt Large (67-100%) -Granulation Quality Red -Slough/Fibrin Yes -Necrosis Amt Small (1-33%) -Necrotic Tissue Type Adherent Slough -Structure Exposed N/A -Texture (Mahnaz-wound Skin Appearance) Assessed, Excoriation -Moisture (Mahnaz-wound Skin Appearance) Assessed -Color (Mahnaz-wound Skin Appearance) Assessed -Temperature (Mahnaz-wound Skin No Abnormality Appearance) (Pt Warm) -Tenderness on Palpation (Mahnaz-wound No Skin Appearance) -Ulcer Cleansing Wound Cleanser -Foul Odor after Cleansing No -Anesthetic Used 5% Lidocaine Gel Lower Limb Edema Present VENITA - Nurse 2 - General Ulcer CM Notes Start: 09/13/22 11:00 Freq: Status: Active Protocol: Activity Type Activity Date Activity User E-sign Co-sign Detail Recorded Client Recorded Date Recorded By Document 09/13/22 11:29 [id number] 09/13/22 11:32 Document 09/20/22 10:23 [id number] 09/20/22 10:25 Document 09/27/22 10:57 [id number] 09/27/22 10:59 Document 10/04/22 10:21 [id number] 10/04/22 10:24 09/13/22 09/20/22 09/27/22 11:29 10:23 10:57 Wound Center Nurse 2 1. sacral -Time 11:30 10:24 10:57 -Correct Patient Yes Yes Yes -Correct Side, Site, Position Yes Yes Yes -Correct Procedure Yes Yes Yes -Procedure Performed Yes Yes Yes -Type of Procedure Debridement Debridement Debridement -Clinical Debridement Subcutaneous Subcutaneous Subcutaneous -Tissue Removed Subcutaneous Subcutaneous Subcutaneous -Post Debridement (cm) - Length 4.4 4 4.5 -Post Debridement (cm) - Width 3.9 4 2.9 -Post Debridement (cm) - Depth 0.5 0.6 0.3 -Total Square (Post) (cm) 17.16 16 13.05 -Area of Debridement (cm) - Length 4.4 4 4.5 -Area of Debridement (cm) - Width 3.9 4 2.9 -Total Square (Area) (cm) 17.16 16 13.05 -Tunneling Yes No No -Tunneling Position (O'clock) 11 -Tunneling Distance (cm) 0.5 -Undermining/Tunneling No Yes Yes -Undermining/Tunneling Starts (O'clock 10 10 ) -Undermining/Tunneling Ends (O'clock) 12 11 -Maximum Distance (cm) 0.6 0.4 -Circular Undermining No No No -Wound/Ulcer Outcome Not Healed Not Healed Not Healed -Ulcer Cleansing Rinsed/ Rinsed/ Rinsed/ Irrigated with Irrigated with Irrigated with Saline Saline Saline -Foul Odor after Cleansing No No No -Bioengineered Tissue No No No -Bleeding Controlled with Pressure Pressure Pressure -Treatment Response Procedure Procedure Procedure Tolerated Well Tolerated Well Tolerated Well -Offloading No No No -Debridement - Subq, 1st 20sq cm Yes Yes Yes -Debridement - Muscle / Fascia, 1st No 20sq cm Pain Scale: 0-10 Numeric Is Patient Pain Free? Yes Yes Yes 10/04/22 10:21 Wound Center Nurse 2 1. sacral -Time 10:23 -Correct Patient Yes -Correct Side, Site, Position Yes -Correct Procedure Yes -Procedure Performed Yes -Type of Procedure Debridement -Clinical Debridement Subcutaneous -Tissue Removed Subcutaneous -Post Debridement (cm) - Length 4.0 -Post Debridement (cm) - Width 3.0 -Post Debridement (cm) - Depth 0.4 -Total Square (Post) (cm) 12.00 -Area of Debridement (cm) - Length 4.0 -Area of Debridement (cm) - Width 3.0 -Total Square (Area) (cm) 12.00 -Tunneling No -Tunneling Position (O'clock) -Tunneling Distance (cm) -Undermining/Tunneling Yes -Undermining/Tunneling Starts (O'clock 10 ) -Undermining/Tunneling Ends (O'clock) 11 -Maximum Distance (cm) 0.2 -Circular Undermining No -Wound/Ulcer Outcome Not Healed -Ulcer Cleansing Rinsed/ Irrigated with Saline -Foul Odor after Cleansing No -Bioengineered Tissue No -Bleeding Controlled with Pressure -Treatment Response Procedure Tolerated Well -Offloading No -Debridement - Subq, 1st 20sq cm Yes -Debridement - Muscle / Fascia, 1st 20sq cm Pain Scale: 0-10 Numeric Is Patient Pain Free? Yes - Nurse 3 - General Ulcer D/C NN Start: 09/13/22 11:00 Freq: Status: Active Protocol: Activity Type Activity Date Activity User E-sign Co-sign Detail Recorded Client Recorded Date Recorded By Document 09/13/22 11:46 MT [id number] 09/13/22 11:47 MT Document 09/20/22 10:41 PL [id number] 09/20/22 10:42 PL Document 09/27/22 11:06 [facility] [id number] 09/27/22 11:08 [facility] 09/13/22 09/20/22 09/27/22 11:46 10:41 11:06 Wound Care Center Nurse 3 1. sacral -Ulcer Cleansing Soap and Water Rinsed/ Rinsed/ Irrigated with Irrigated with Saline Saline -Foul Odor after Cleansing No No -Negative Pressure Wound Therapy Discontinue -Primary Dressing Applied Silvercel Silvercel Silvercel -Other Dressing ABD FLUFFED GAUZE; ABD -Primary Dressing Covered/Secured with Dry Gauze, Dry Gauze, Dry Gauze, Secured with Secured with Secured with Tape Tape Tape -Silvercel 1 1 1 Treatment Response Procedure Tolerated Well Pain Scale: 0-10 Numeric Is Patient Pain Free? Yes Yes Yes - Visit Discharge Discharge Condition Stable Stable Stable Ambulatory Status Ambulatory Walker Ambulatory, Walker Transportation Private Auto Private Auto Private Auto Medication Reconcilliation completed & No provided to patient/care provider Clinical Summary of Care Provided Yes Facility Type Home Health Assessment/Plan Assessment/Plan (1) Pressure ulcer of sacral region, stage 4: CODE(S): L89.154 - Pressure ulcer of sacral region, stage 4 (2) Rheumatoid arthritis: CODE(S): M06.9 - Rheumatoid arthritis, unspecified (3) Debility: CODE(S): R53.81 - Other malaise (4) Other acute postprocedural pain: CODE(S): G89.18 - Other acute postprocedural pain (5) Impacted cerumen of both ears: CODE(S): H61.23 - Impacted cerumen, bilateral PLAN: Plan Patient evaluated at the wound center today. Wound care - Silvercel dressing topped with fluffed gauze and then ABD to be changed 3 times per week and as needed. She will place Aquaphor or Vaseline around the edge of the ulcer that is excoriated. Wash ulcer and mahnaz wound with soap and water at the time of the dressing change. I would like her to learn how to do the dressing changes on the day that home health is not able to do them. She is resistant to learning how to change this dressing and is adamant that she has no one to help her change it. She was placed on Diflucan for her positive operative fungal cultures. She still did not tolerate the Diflucan 200 mg daily. It upset her stomach and was causing her to have diarrhea. She stopped it a couple weeks ago. Discussed this with Dr. Lee and we will consult ID. Patient does not want to consult ID, so she states that she will try taking the Diflucan again because she was taking multiple meds at once and she does not know which one was causing the diarrhea. She has been taking the Diflucan twice daily and is now tolerating it. Will check CMP. On 07/25/22 Alk Phos 152. Prealbumin 12.8 on 05/23/22. Encouraged increase protein supplementation. She state she is drinking Tommy 1-2 times per day in addition to her increase in dietary protein. Follow 1 week. Call or come in sooner if develop any questions or concerns.
== END 2022-10-08 23:59 | disposition home or self-care (01) ==
LOC: WC 10:00
PROVIDERS: PCP Family Medicine; Visit Provider Nurse Practitioner Family
DX: L89.154 Pressure ulcer of sacral region, stage 4 (principal); M06.9 Rheumatoid arthritis, unspecified; M46.28 Osteomyelitis of vertebra, sacral and sacrococcygeal region; H61.23 Impacted cerumen, bilateral; R53.81 Other malaise; G89.18 Other acute postprocedural pain; Z79.82 Long term (current) use of aspirin; Z79.899 Other long term (current) drug therapy
CPT/HCPCS: 11042

== ENCOUNTER → 2022-10-13 | Outpatient (CLI) | payer MEDICARE, OTHER, SELFPAY ==
[2022-10-13 12:52] LABS: ALB/GLOB Ratio 0.9 RATIO (0.9-2.4); AST(SGOT) 17 U/L (15-37); Alanine Aminotransfer ALT/SGPT 20 U/L (13-56); Albumin, Serum 3.7 g/dL (3.2-5.0); Alkaline Phosphatase 151 U/L (45-117); Anion Gap 8 (5-15); BUN 18 mg/dL (7-18); BUN/Creat Ratio 27.4 RATIO (10-20); Calcium,Total 9.3 mg/dL (8.5-10.1); Chloride 102 mmol/L (98-107); Creatinine, Serum 0.66 mg/dL (0.55-1.02); EST Glomerular Filtration Rate 94 mL/min (>60); Est Glom Filt Rate - Afr Amer 114 mL/min (>60); Glucose 97 mg/dL (74-106); Potassium 4.3 mmol/L (3.5-5.1); Protein, Total 7.7 g/dL (6.4-8.2); Sodium Level 137 mmol/L (136-145)
== END | disposition home or self-care (01) ==
LOC: HHLAB 12:18
PROVIDERS: PCP Family Medicine; Referring Provider Nurse Practitioner Family; Visit Provider Nurse Practitioner Family
DX: L89.154 Pressure ulcer of sacral region, stage 4 (principal); M46.28 Osteomyelitis of vertebra, sacral and sacrococcygeal region; I48.0 Paroxysmal atrial fibrillation
CPT/HCPCS: 80053

== ENCOUNTER 2022-11-08 10:00 | Outpatient (RCR) | payer MEDICARE, OTHER, SELFPAY ==
[2022-10-09 00:19] VITALS: BP 150/79; PULSE 86; RESP 16; TEMP 35.6
[2022-10-11 10:34] VITALS: BP 119/83; PULSE 92; RESP 18; TEMP 36.3
--- NOTE | 2022-10-11 12:33 | PN.PCM_ITS ---
History of Present Illness Date of Service: 10/11/22 Chief Complaint: Left sacral ulcer History of Wound: 72 year old female with below past medical history suffered fall from second story, hospitalized for multi trauma, underwent left tibia intramedullary nail fixation, right hip anterograde intramedullary nail, complicated by encephalopathy from urinary tract infection, stage 4 left sacral pressure ulcer with chronic osteomyelitis, admitted to TCU on 04/17/22 with debility, there for rehabilitation, strengthening, prior to discharge home alone on 06/25/22 with home health/PT/OT. Surgery 05/22/[address] Lee for Excision necrotic left sacral pressure sore, Stage IV, with partial ostectomy for osteomyelitis. Operative tissue cultures positive for Eschericha coli, Streptococcus sanguinis, Corynebacterium amycolatum, Provotella oralis, Anaerobic cocci, and most recently Fernanda albicans and Aspirgillus fumigatus. Operative bone culture positive for Provotella disiens and Fernanda albicans. She was treated with Levaquin and Augmentin. She developed muscle pain so the Levaquin was switched to Doxycycline. The fungal cultures just recently came back and we will start her on Diflucan. Wound care is wound Silver alginate to be changed 3 times per week and as needed. She has home health to assist with the dressing changes. Today she denies fever, chills, nausea or vomiting. She states she is doing well at home. Progress of Wound: Left sacral ulcer is beefy pink and smaller in size. Undermining is smaller. Mahnaz wound excoriation is improving with using a moisture barrier. Objective Data Objective Data Vital Signs: Vital Signs Temp Pulse Resp BP 97.4 F L 92 18 119/83 H 10/11/22 10:34 10/11/22 10:34 10/11/22 10:34 10/11/22 10:34 Weight: 124 lb Body Mass Index (BMI) 20.0 Charges/Coding Procedures Integumentary 111xxx-113xx: 91336 Dana subq tissue 20 sq cm/< Debridement Note Debridement Note Wound debrided: Sacral ulcer Laterality: Left Wound Grade/Stage: Stage IV Type of Debridement: Excisional debridement Anesthesia Used: 4% Lidocaine Solution and 5% Lidocaine Gel Depth: Down to and including healthy tissue and in the subcutaneous layer Percentage of wound debrided: 100 Instrument Used: 5mm curette Tissue Removed: Devitalized tissue and slough Severity: Fat Layer Exposed Amount of bleeding with debridement: Mild Bleeding Controlled with: Pressure and Compression and gauze Patient tolerated procedure: Patient tolerated procedure well Post-Debridement Measurements and Additional Note: Post-Debridement Measurements/Treatment - Nurse 1 - General Ulcer Assessment Start: 10/11/22 10:34 Freq: Status: Active Protocol: JUSTIN Activity Type Activity Date Activity User E-sign Co-sign Detail Recorded Client Recorded Date Recorded By Document 10/11/22 10:34 [id number] 10/11/22 10:43 PL 10/11/22 10:34 - Today's Visit Information Type of service Follow-up Visit (Physician/SENIOR TEST ANALYST ) Arrival Mode Walker Patient Identification Verified (Name & Yes ) Patient Requires Transmission-Based No Precautions Safety Precautions NA Height and Weight Body Mass Index (BMI) 20.0 BMI Classification Normal Vital Signs Temperature (97.8 F-99.1 F) 97.4 F L Temperature Source Temporal Pulse Rate (60-100) 92 Respiratory Rate (12-18) 18 Blood Pressure (90/60-120/80) 119/83 H Blood Pressure Mean (mm Hg) 95 History Since Last Visit- (Skip if this is Patient's initial visit) Have you changed medications since your No last visit? Any new allergies or adverse reactions No Signs or symptoms of abuse and/or No neglect since last visit Have you been in the hospital since your No last visit? Has dressing in place as prescribed Yes Has compression in place as prescribed N/A Has offloadiing in place as prescribed N/A Experienced any changes in pain level or No management Pain Scale: 0-10 Numeric Is Patient Pain Free? Yes [facility] Nurse 1 - General Ulcer Measurement Start: 10/11/22 10:34 Freq: Status: Active Protocol: Activity Type Activity Date Activity User E-sign Co-sign Detail Recorded Client Recorded Date Recorded By Document 10/11/22 10:34 PL [id number] 10/11/22 10:43 PL 10/11/22 10:34 Wound Center Nurse 1 1. sacral -Current Size (cm) - Length 4.0 -Current Size (cm) - Width 2.5 -Current Size (cm) - Depth 0.4 -Total Square Cm 10.00 -Photo Taken No -Tunneling No -Undermining/Tunneling No -Circular Undermining No -Exudate Amt Medium -Exudate Type Serosanguineous -Wound Margin Thickened & Rolled Under -Granulation Amt Medium (34-66%) -Slough/Fibrin Yes -Necrosis Amt Medium (34-66%) -Necrotic Tissue Type Adherent Slough -Temperature (Mahnaz-wound Skin No Abnormality Appearance) (Pt Warm) -Tenderness on Palpation (Mahnaz-wound No Skin Appearance) -Ulcer Cleansing Soap and Water -Anesthetic Used 5% Lidocaine Gel WC - Nurse 2 - General Ulcer CM Notes Start: 10/11/22 10:34 Freq: Status: Active Protocol: Activity Type Activity Date Activity User E-sign Co-sign Detail Recorded Client Recorded Date Recorded By Document 10/11/22 10:55 [id number] 10/11/22 10:58 10/11/22 10:55 Wound Center Nurse 2 -Time 10:55 -Correct Patient Yes -Correct Side, Site, Position Yes -Correct Procedure Yes -Procedure Performed Yes -Type of Procedure Debridement -Clinical Debridement Subcutaneous -Tissue Removed Subcutaneous -Post Debridement (cm) - Length 3.5 -Post Debridement (cm) - Width 4.5 -Post Debridement (cm) - Depth 0.2 -Total Square (Post) (cm) 15.75 -Area of Debridement (cm) - Length 3.5 -Area of Debridement (cm) - Width 4.5 -Total Square (Area) (cm) 15.75 -Tunneling No -Undermining/Tunneling No -Circular Undermining No -Wound/Ulcer Outcome Not Healed -Bleeding Controlled with Pressure -Treatment Response Procedure Tolerated Well -Offloading No -Debridement - Subq, 1st 20sq cm Yes Pain Scale: 0-10 Numeric Is Patient Pain Free? Yes - Nurse 3 - General Ulcer D/C NN Start: 10/11/22 10:34 Freq: Status: Active Protocol: Activity Type Activity Date Activity User E-sign Co-sign Detail Recorded Client Recorded Date Recorded By Document 10/11/22 10:58 [id number] 10/11/22 10:59 10/11/22 10:58 Wound Care Center Nurse 3 1. sacral -Ulcer Cleansing Rinsed/ Irrigated with Saline -Foul Odor after Cleansing No -Primary Dressing Applied Silvercel -Primary Dressing Covered/Secured with Dry Gauze -Silvercel 1 Pain Scale: 0-10 Numeric Is Patient Pain Free? Yes WC - Visit Discharge Discharge Condition Stable Ambulatory Status Ambulatory, Walker Transportation Private Auto Medication Reconcilliation completed & Yes provided to patient/care provider Clinical Summary of Care Provided No Assessment/Plan Assessment/Plan (1) Pressure ulcer of sacral region, stage 4: CODE(S): L89.154 - Pressure ulcer of sacral region, stage 4 (2) Rheumatoid arthritis: CODE(S): M06.9 - Rheumatoid arthritis, unspecified (3) Debility: CODE(S): R53.81 - Other malaise (4) Other acute postprocedural pain: CODE(S): G89.18 - Other acute postprocedural pain (5) Impacted cerumen of both ears: CODE(S): H61.23 - Impacted cerumen, bilateral PLAN: Plan Patient evaluated at the wound center today. Wound care - Silvercel dressing topped with fluffed gauze and then ABD to be changed 3 times per week and as needed. She will place Aquaphor or Vaseline around the edge of the ulcer that is excoriated. Wash ulcer and mahnaz wound with soap and water at the time of the dressing change. I would like her to learn how to do the dressing changes on the day that home health is not able to do them. She is resistant to learning how to change this dressing and is adamant that she has no one to help her change it. She was placed on Diflucan for her positive operative fungal cultures. She still did not tolerate the Diflucan 200 mg daily. It upset her stomach and was causing her to have diarrhea. She stopped it after taking it for awhile stating it was causing her diarrhea. Consulted ID and then she decided to try to take it and is not having any issues at this time. She has been taking the Diflucan twice daily and is now tolerating it. Will check CMP this week. On 07/25/22 Alk Phos 152. Prealbumin 12.8 on 05/23/22. Encouraged increase protein supplementation. She state she is drinking Tommy 1-2 times per day in addition to her increase in dietary protein. Follow 1 week. Call or come in sooner if develop any questions or concerns.
[2022-10-18 10:29] VITALS: BP 119/73; PULSE 74; RESP 18; TEMP 36.2
--- NOTE | 2022-10-18 12:41 | PCM.WC.PN ---
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 Surgery 05/22/[address] Lee for Excision necrotic left sacral pressure sore, Stage IV, with partial ostectomy for osteomyelitis. Operative tissue cultures positive for Eschericha coli, Streptococcus sanguinis, Corynebacterium amycolatum, Provotella oralis, Anaerobic cocci, and most recently Fernanda albicans and Aspirgillus fumigatus. Operative bone culture positive for Provotella disiens and Fernanda albicans. She was treated with Levaquin and Augmentin. She developed muscle pain so the Levaquin was switched to Doxycycline. The fungal cultures just recently came back and we will start her on Diflucan. Wound care is wound Silver alginate to be changed 3 times per week and as needed. She has home health to assist with the dressing changes. Today she denies fever, chills, nausea or vomiting. She states she is doing well at home. Progress of Wound: Left sacral ulcer is beefy pink and smaller in size. Undermining is smaller. Mahnaz wound excoriation has improved with using a moisture barrier. Objective Data Objective Data Vital Signs: Vital Signs Temp Pulse Resp BP 97.2 F L 74 18 119/73 10/18/22 10:29 10/18/22 10:29 10/18/22 10:29 10/18/22 10:29 Weight: 124 lb Body Mass Index (BMI) 20.0 Charges/Coding Procedures Integumentary 111xxx-113xx: 94567 Dana subq tissue 20 sq cm/< Debridement Note Debridement Note Wound debrided: Sacral ulcer Laterality: Left Wound Grade/Stage: Stage IV Type of Debridement: Excisional debridement Anesthesia Used: 4% Lidocaine Solution and 5% Lidocaine Gel Depth: Down to and including healthy tissue and in the subcutaneous layer Percentage of wound debrided: 100 Instrument Used: 5mm curette Tissue Removed: Devitalized tissue and slough Severity: Fat Layer Exposed Amount of bleeding with debridement: Mild Bleeding Controlled with: Pressure and Compression and gauze Patient tolerated procedure: Patient tolerated procedure well Post-Debridement Measurements and Additional Note: Post-Debridement Measurements/Treatment WC - Nurse 1 - General Ulcer Assessment Start: 10/11/22 10:34 Freq: Status: Active Protocol: JUSTIN Activity Type Activity Date Activity User E-sign Co-sign Detail Recorded Client Recorded Date Recorded By Document 10/11/22 10:34 PL [id number] 10/11/22 10:43 PL Document 10/18/22 10:29 DL [id number] 10/18/22 10:35 DL 10/11/22 10/18/22 10:34 10:29 WC - Today's Visit Information Type of service Follow-up Visit Follow-up Visit (Physician/SENIOR MATERIALS ANALYST (Physician/SENIOR MATERIALS ANALYST ) ) Arrival Mode Walker Ambulatory, Walker Transfer Assistance None Patient Identification Verified (Name & Yes Yes ) Patient Requires Transmission-Based No No Precautions Safety Precautions NA Height and Weight Body Mass Index (BMI) 20.0 20.0 BMI Classification Normal Normal Vital Signs Temperature (97.8 F-99.1 F) 97.4 F L 97.2 F L Temperature Source Temporal Temporal Pulse Rate (60-100) 92 74 Pulse Location Monitor Respiratory Rate (12-18) 18 18 Respiratory rate source Observation Blood Pressure (90/60-120/80) 119/83 H 119/73 Blood Pressure Mean (mm Hg) 95 88 Source Monitor History Since Last Visit- (Skip if this is Patient's initial visit) Have you changed medications since your No No last visit? Any new allergies or adverse reactions No No Had a fall/change in ADL's that may No increase risk of falls Signs or symptoms of abuse and/or No No neglect since last visit Have you been in the hospital since your No No last visit? Has dressing in place as prescribed Yes Yes Has compression in place as prescribed N/A N/A Has offloadiing in place as prescribed N/A Yes Experienced any changes in pain level or No No management Pain Scale: 0-10 Numeric Is Patient Pain Free? Yes Yes BRADEN - Nurse 1 - General Ulcer Measurement Start: 10/11/22 10:34 Freq: Status: Active Protocol: Activity Type Activity Date Activity User E-sign Co-sign Detail Recorded Client Recorded Date Recorded By Document 10/11/22 10:34 PL [id number] 10/11/22 10:43 PL Document 10/18/22 10:29 DL [id number] 10/18/22 10:35 DL 10/11/22 10/18/22 10:34 10:29 Wound Center Nurse 1 1. sacral -Current Size (cm) - Length 4.0 3.3 -Current Size (cm) - Width 2.5 1.8 -Current Size (cm) - Depth 0.4 0.2 -Total Square Cm 10.00 5.94 -Photo Taken No No -Tunneling No -Undermining/Tunneling No -Circular Undermining No -Exudate Amt Medium Medium -Exudate Type Serosanguineous Yellow/Green -Wound Margin Thickened & Distinct, Rolled Under Outline Attached -Granulation Amt Medium (34-66%) Large (67-100%) -Granulation Quality Red -Slough/Fibrin Yes -Necrosis Amt Medium (34-66%) Small (1-33%) -Necrotic Tissue Type Adherent Slough Adherent Slough -Structure Exposed N/A -Texture (Mahnaz-wound Skin Appearance) Scarring -Moisture (Mahnaz-wound Skin Appearance) No Abnormality -Color (Mahnaz-wound Skin Appearance) No Abnormality -Temperature (Mahnaz-wound Skin No Abnormality No Abnormality Appearance) (Pt Warm) (Pt Warm) -Tenderness on Palpation (Mahnaz-wound No No Skin Appearance) -Ulcer Cleansing Soap and Water Soap and Water -Foul Odor after Cleansing No -Anesthetic Used 5% Lidocaine 5% Lidocaine Gel Gel WC - Nurse 2 - General Ulcer CM Notes Start: 10/11/22 10:34 Freq: Status: Active Protocol: Activity Type Activity Date Activity User E-sign Co-sign Detail Recorded Client Recorded Date Recorded By Document 10/11/22 10:55 [id number] 10/11/22 10:58 Document 10/18/22 10:42 [id number] 10/18/22 10:44 JF 10/11/22 10/18/22 10:55 10:42 Wound Center Nurse 2 1. sacral -Time 10:55 10:42 -Correct Patient Yes Yes -Correct Side, Site, Position Yes Yes -Correct Procedure Yes Yes -Procedure Performed Yes Yes -Type of Procedure Debridement Debridement -Clinical Debridement Subcutaneous Subcutaneous -Tissue Removed Subcutaneous Subcutaneous -Post Debridement (cm) - Length 3.5 2.2 -Post Debridement (cm) - Width 4.5 4 -Post Debridement (cm) - Depth 0.2 0.2 -Total Square (Post) (cm) 15.75 8.8 -Area of Debridement (cm) - Length 3.5 2.2 -Area of Debridement (cm) - Width 4.5 4 -Total Square (Area) (cm) 15.75 8.8 -Tunneling No No -Undermining/Tunneling No No -Circular Undermining No No -Wound/Ulcer Outcome Not Healed Not Healed -Ulcer Cleansing Rinsed/ Irrigated with Saline -Foul Odor after Cleansing No -Bioengineered Tissue No -Bleeding Controlled with Pressure Pressure -Treatment Response Procedure Procedure Tolerated Well Tolerated Well -Offloading No No -Debridement - Subq, 1st 20sq cm Yes Yes Pain Scale: 0-10 Numeric Is Patient Pain Free? Yes Yes - Nurse 3 - General Ulcer D/C NN Start: 10/11/22 10:34 Freq: Status: Active Protocol: Activity Type Activity Date Activity User E-sign Co-sign Detail Recorded Client Recorded Date Recorded By Document 10/11/22 10:58 [id number] 10/11/22 10:59 Document 10/18/22 10:44 [id number] 10/18/22 10:45 10/11/22 10/18/22 10:58 10:44 Wound Care Center Nurse 3 1. sacral -Ulcer Cleansing Rinsed/ Rinsed/ Irrigated with Irrigated with Saline Saline -Foul Odor after Cleansing No No -Primary Dressing Applied Silvercel Silvercel -Primary Dressing Covered/Secured with Dry Gauze Dry Gauze, Secured with Tape -Silvercel 1 1 Pain Scale: 0-10 Numeric Is Patient Pain Free? Yes Yes - Visit Discharge Discharge Condition Stable Stable Ambulatory Status Ambulatory, Ambulatory, Walker Walker Transportation Private Auto Private Auto Medication Reconcilliation completed & Yes Yes provided to patient/care provider Clinical Summary of Care Provided No Yes Assessment/Plan Assessment/Plan (1) Pressure ulcer of sacral region, stage 4: CODE(S): L89.154 - Pressure ulcer of sacral region, stage 4 (2) Rheumatoid arthritis: CODE(S): M06.9 - Rheumatoid arthritis, unspecified (3) Debility: CODE(S): R53.81 - Other malaise (4) Other acute postprocedural pain: CODE(S): G89.18 - Other acute postprocedural pain (5) Impacted cerumen of both ears: CODE(S): H61.23 - Impacted cerumen, bilateral PLAN: Plan Patient evaluated at the wound center today. Wound care - Silvercel dressing topped with fluffed gauze and then ABD to be changed 3 times per week and as needed. She will place Aquaphor or Vaseline around the edge of the ulcer that is excoriated. Wash ulcer and mahnaz wound with soap and water at the time of the dressing change. I would like her to learn how to do the dressing changes on the days that home health is not able to do them. She is resistant to learning how to change this dressing and states that she has no one to help her change it. She was placed on Diflucan for her positive operative fungal cultures. She initially did not tolerate the Diflucan 200 mg daily. It upset her stomach and was causing her to have diarrhea. She stopped it after taking it for awhile stating it was causing her diarrhea. Consulted ID and then she decided to try to take it and is not having any issues at this time. She completed the Diflucan. Labs drawn on 10/13/22: Total Bili 0.30, AST 17, ALT 20, Alk Phos 151. On 07/25/22 Alk Phos 152. Prealbumin 12.8 on 05/23/22. Encouraged increase protein supplementation. She state she is drinking Tmomy 1-2 times per day in addition to her increase in dietary protein. Follow 1 week. Call or come in sooner if develop any questions or concerns.
[2022-10-25 10:13] VITALS: BP 144/77; PULSE 81; RESP 22; TEMP 36.4
--- NOTE | 2022-10-25 11:03 | PCM.WC.PN ---
History of Present Illness Date of Service: 10/25/22 Chief Complaint: Left sacral ulcer History of Wound: 72 year old female with below past medical history suffered fall from second story, hospitalized for multi trauma, underwent left tibia intramedullary nail fixation, right hip anterograde intramedullary nail, complicated by encephalopathy from urinary tract infection, stage 4 left sacral pressure ulcer with chronic osteomyelitis, admitted to TCU on 04/17/22 with debility, there for rehabilitation, strengthening, prior to discharge home alone on 06/25/22 with home health/PT/OT. Surgery 05/22/[address] Lee for Excision necrotic left sacral pressure sore, Stage IV, with partial ostectomy for osteomyelitis. Operative tissue cultures positive for Eschericha coli, Streptococcus sanguinis, Corynebacterium amycolatum, Provotella oralis, Anaerobic cocci, and most recently Fernanda albicans and Aspirgillus fumigatus. Operative bone culture positive for Provotella disiens and Fernanda albicans. She was treated with Levaquin and Augmentin. She developed muscle pain so the Levaquin was switched to Doxycycline. The fungal cultures just recently came back and we will start her on Diflucan. Wound care is wound Silver alginate to be changed 3 times per week and as needed. She has home health to assist with the dressing changes. Today she denies fever, chills, nausea or vomiting. She states she is doing well at home. Progress of Wound: Left sacral ulcer is beefy pink and smaller in size. Undermining is smaller. Mahnaz wound is clear. Objective Data Objective Data Vital Signs: Vital Signs Temp Pulse Resp BP 97.6 F L 81 22 H 144/77 H 10/25/22 10:13 10/25/22 10:13 10/25/22 10:13 10/25/22 10:13 Weight: 124 lb Body Mass Index (BMI) 20.0 Charges/Coding Procedures Integumentary 111xxx-113xx: [id number] Dana subq tissue 20 sq cm/< Debridement Note Debridement Note Wound debrided: Sacral ulcer Laterality: Left Wound Grade/Stage: Stage IV Type of Debridement: Excisional debridement Anesthesia Used: 4% Lidocaine Solution and 5% Lidocaine Gel Depth: Down to and including healthy tissue and in the subcutaneous layer Percentage of wound debrided: 100 Instrument Used: 5mm curette Tissue Removed: Devitalized tissue and slough Severity: Fat Layer Exposed Amount of bleeding with debridement: Mild Bleeding Controlled with: Pressure and Compression and gauze Patient tolerated procedure: Patient tolerated procedure well Post-Debridement Measurements and Additional Note: Post-Debridement Measurements/Treatment - Nurse 1 - General Ulcer Assessment Start: 10/11/22 10:34 Freq: Status: Active Protocol: JUSTIN Activity Type Activity Date Activity User E-sign Co-sign Detail Recorded Client Recorded Date Recorded By Document 10/11/22 10:34 PL [id number] 10/11/22 10:43 PL Document 10/18/22 10:29 DL [id number] 10/18/22 10:35 DL Document 10/25/22 10:13 DL [id number] 10/25/22 10:19 DL 10/11/22 10/18/22 10/25/22 10:34 10:29 10:13 - Today's Visit Information Type of service Follow-up Visit Follow-up Visit Follow-up Visit (Physician/[facility] [employer] (Physician/[facility] [employer] [employer] (Physician/[employer] [employer] [employer] ) ) ) Arrival Mode Walker Ambulatory, Ambulatory, Walker Walker Transfer Assistance None Patient Identification Verified (Name & Yes Yes ) Patient Requires Transmission-Based No No Precautions Safety Precautions NA Height and Weight Body Mass Index (BMI) 20.0 20.0 20.0 BMI Classification Normal Normal Normal Vital Signs Temperature (97.8 F-99.1 F) 97.4 F L 97.2 F L 97.6 F L Temperature Source Temporal Temporal Temporal Pulse Rate (60-100) 92 74 81 Pulse Location Monitor Monitor Respiratory Rate (12-18) 18 18 22 H Respiratory rate source Observation Observation Blood Pressure (90/60-120/80) 119/83 H 119/73 144/77 H Blood Pressure Mean (mm Hg) 95 88 99 Source Monitor Monitor History Since Last Visit- (Skip if this is Patient's initial visit) Have you changed medications since your No No No last visit? Any new allergies or adverse reactions No No No Had a fall/change in ADL's that may No No increase risk of falls Signs or symptoms of abuse and/or No No No neglect since last visit Have you been in the hospital since your No No No last visit? Has dressing in place as prescribed Yes Yes Yes Has compression in place as prescribed N/A N/A N/A Has offloadiing in place as prescribed N/A Yes Yes Experienced any changes in pain level or No No No management Pain Scale: 0-10 Numeric Is Patient Pain Free? Yes Yes No WC - Nurse 1 - General Ulcer Measurement Start: 10/11/22 10:34 Freq: Status: Active Protocol: Activity Type Activity Date Activity User E-sign Co-sign Detail Recorded Client Recorded Date Recorded By Document 10/11/22 10:34 PL [id number] 10/11/22 10:43 PL Document 10/18/22 10:29 DL [id number] 10/18/22 10:35 DL Document 10/25/22 10:13 DL [id number] 10/25/22 10:19 DL 10/11/22 10/18/22 10/25/22 10:34 10:29 10:13 Wound Center Nurse 1 1. sacral -Current Size (cm) - Length 4.0 3.3 3 -Current Size (cm) - Width 2.5 1.8 1.6 -Current Size (cm) - Depth 0.4 0.2 0.3 -Total Square Cm 10.00 5.94 4.8 -Photo Taken No No Yes -Tunneling No -Undermining/Tunneling No -Circular Undermining No -Exudate Amt Medium Medium Medium -Exudate Type Serosanguineous Yellow/Green Serosanguineous -Wound Margin Thickened & Distinct, Thickened Rolled Under Outline Attached -Granulation Amt Medium (34-66%) Large (67-100%) Medium (34-66%) -Granulation Quality Red Pale,Mccarthy -Slough/Fibrin Yes -Necrosis Amt Medium (34-66%) Small (1-33%) Medium (34-66%) -Necrotic Tissue Type Adherent Slough Adherent Slough Adherent Slough -Structure Exposed N/A N/A -Texture (Mahnaz-wound Skin Appearance) Scarring Scarring -Moisture (Mahnaz-wound Skin Appearance) No Abnormality No Abnormality -Color (Mahnaz-wound Skin Appearance) No Abnormality No Abnormality -Temperature (Mahnaz-wound Skin No Abnormality No Abnormality No Abnormality Appearance) (Pt Warm) (Pt Warm) (Pt Warm) -Tenderness on Palpation (Mahnaz-wound No No No Skin Appearance) -Ulcer Cleansing Soap and Water Soap and Water Soap and Water -Foul Odor after Cleansing No No -Anesthetic Used 5% Lidocaine 5% Lidocaine 5% Lidocaine Gel Gel Gel - Nurse 2 - General Ulcer CM Notes Start: 10/11/22 10:34 Freq: Status: Active Protocol: Activity Type Activity Date Activity User E-sign Co-sign Detail Recorded Client Recorded Date Recorded By Document 10/11/22 10:55 [id number] 10/11/22 10:58 Document 10/18/22 10:42 [id number] 10/18/22 10:44 Document 10/25/22 10:30 [id number] 10/25/22 10:32 10/11/22 10/18/22 10/25/22 10:55 10:42 10:30 Wound Center Nurse 2 1. sacral -Time 10:55 10:42 10:30 -Correct Patient Yes Yes Yes -Correct Side, Site, Position Yes Yes Yes -Correct Procedure Yes Yes Yes -Procedure Performed Yes Yes Yes -Type of Procedure Debridement Debridement Debridement -Clinical Debridement Subcutaneous Subcutaneous Subcutaneous -Tissue Removed Subcutaneous Subcutaneous Subcutaneous -Post Debridement (cm) - Length 3.5 2.2 3.4 -Post Debridement (cm) - Width 4.5 4 2.2 -Post Debridement (cm) - Depth 0.2 0.2 0.2 -Total Square (Post) (cm) 15.75 8.8 7.48 -Area of Debridement (cm) - Length 3.5 2.2 3.4 -Area of Debridement (cm) - Width 4.5 4 2.2 -Total Square (Area) (cm) 15.75 8.8 7.48 -Tunneling No No No -Undermining/Tunneling No No No -Circular Undermining No No No -Wound/Ulcer Outcome Not Healed Not Healed Not Healed -Ulcer Cleansing Rinsed/ Rinsed/ Irrigated with Irrigated with Saline Saline -Foul Odor after Cleansing No No -Bioengineered Tissue No No -Bleeding Controlled with Pressure Pressure Pressure -Treatment Response Procedure Procedure Procedure Tolerated Well Tolerated Well Tolerated Well -Offloading No No No -Debridement - Subq, 1st 20sq cm Yes Yes Yes Pain Scale: 0-10 Numeric Is Patient Pain Free? Yes Yes Yes BRADEN - Nurse 3 - General Ulcer D/C NN Start: 10/11/22 10:34 Freq: Status: Active Protocol: Activity Type Activity Date Activity User E-sign Co-sign Detail Recorded Client Recorded Date Recorded By Document 10/11/22 10:58 [id number] 10/11/22 10:59 Document 10/18/22 10:44 [id number] 10/18/22 10:45 HUMERA 10/11/22 10/18/22 10:58 10:44 Wound Care Center Nurse 3 1. sacral -Ulcer Cleansing Rinsed/ Rinsed/ Irrigated with Irrigated with Saline Saline -Foul Odor after Cleansing No No -Primary Dressing Applied Silvercel Silvercel -Primary Dressing Covered/Secured with Dry Gauze Dry Gauze, Secured with Tape -Silvercel 1 1 Pain Scale: 0-10 Numeric Is Patient Pain Free? Yes Yes WC - Visit Discharge Discharge Condition Stable Stable Ambulatory Status Ambulatory, Ambulatory, Walker Walker Transportation Private Auto Private Auto Medication Reconcilliation completed & Yes Yes provided to patient/care provider Clinical Summary of Care Provided No Yes Assessment/Plan Assessment/Plan (1) Pressure ulcer of sacral region, stage 4: CODE(S): L89.154 - Pressure ulcer of sacral region, stage 4 (2) Rheumatoid arthritis: CODE(S): M06.9 - Rheumatoid arthritis, unspecified (3) Debility: CODE(S): R53.81 - Other malaise (4) Other acute postprocedural pain: CODE(S): G89.18 - Other acute postprocedural pain (5) Impacted cerumen of both ears: CODE(S): H61.23 - Impacted cerumen, bilateral PLAN: Plan Patient evaluated at the wound center today. Wound care - Silvercel dressing topped with fluffed gauze and then ABD to be changed 3 times per week and as needed. She will place Aquaphor or Vaseline around the edge of the ulcer to help prevent excoriation. Wash ulcer and mahnaz wound with soap and water at the time of the dressing change. I would like her to learn how to do the dressing changes on the days that home health is not able to do them. She is resistant to learning how to change this dressing and states that she has no one to help her change it. She was placed on Diflucan for her positive operative fungal cultures. She initially did not tolerate the Diflucan 200 mg daily. It upset her stomach and was causing her to have diarrhea. She stopped it after taking it for awhile stating it was causing her diarrhea. Consulted ID and then she decided to try to take it and is not having any issues at this time. She completed the Diflucan. Labs drawn on 10/13/22: Total Bili 0.30, AST 17, ALT 20, Alk Phos 151. On 07/25/22 Alk Phos 152. Prealbumin 12.8 on 05/23/22. Encouraged increase protein supplementation. She state she is drinking Tommy 1-2 times per day in addition to her increase in dietary protein. Follow 1 week. Call or come in sooner if develop any questions or concerns.
[2022-11-01 10:31] VITALS: BP 131/67; PULSE 84; RESP 20; TEMP 36.3
--- NOTE | 2022-11-01 11:10 | PCM.WC.PN ---
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 Surgery 05/22/[address] Lee for Excision necrotic left sacral pressure sore, Stage IV, with partial ostectomy for osteomyelitis. Operative tissue cultures positive for Eschericha coli, Streptococcus sanguinis, Corynebacterium amycolatum, Provotella oralis, Anaerobic cocci, and most recently Fernanda albicans and Aspirgillus fumigatus. Operative bone culture positive for Provotella disiens and Fernanda albicans. She was treated with Levaquin and Augmentin. She developed muscle pain so the Levaquin was switched to Doxycycline. The fungal cultures just recently came back and we will start her on Diflucan. Wound care is wound Silver alginate to be changed 3 times per week and as needed. She has home health to assist with the dressing changes. Today she denies fever, chills, nausea or vomiting. She states she is doing well at home. Progress of Wound: Left sacral ulcer is beefy pink. It is stable in size. No undermining is present. Mahnaz wound has areas of excoriation. She has not had much improvement in the overall size in a couple weeks. Will culture the wound today to see if infection could be the reason for the decrease in improvements. Objective Data Objective Data Vital Signs: Vital Signs Temp Pulse Resp BP 97.3 F L 84 20 H 131/67 H 11/01/22 10:31 11/01/22 10:31 11/01/22 10:31 11/01/22 10:31 Weight: 124 lb Body Mass Index (BMI) 20.0 Charges/Coding Procedures Integumentary 111xxx-113xx: 61610 Dana subq tissue 20 sq cm/< Debridement Note Debridement Note Wound debrided: Sacral ulcer Laterality: Left Wound Grade/Stage: Stage IV Type of Debridement: Excisional debridement Anesthesia Used: 4% Lidocaine Solution and 5% Lidocaine Gel Depth: Down to and including healthy tissue and in the subcutaneous layer Percentage of wound debrided: 100 Instrument Used: 5mm curette Tissue Removed: Devitalized tissue and slough Severity: Fat Layer Exposed Amount of bleeding with debridement: Mild Bleeding Controlled with: Pressure and Compression and gauze Patient tolerated procedure: Patient tolerated procedure well Post-Debridement Measurements and Additional Note: Post-Debridement Measurements/Treatment - Nurse 1 - General Ulcer Assessment Start: 10/11/22 10:34 Freq: Status: Active Protocol: JUSTIN Activity Type Activity Date Activity User E-sign Co-sign Detail Recorded Client Recorded Date Recorded By Document 10/11/22 10:34 PL [id number] 10/11/22 10:43 PL Document 10/18/22 10:29 DL [id number] 10/18/22 10:35 DL Document 10/25/22 10:13 DL [id number] 10/25/22 10:19 DL Document 11/01/22 10:31 DL [id number] 11/01/22 10:38 DL 10/11/22 10/18/22 10/25/22 10:34 10:29 10:13 - Today's Visit Information Type of service Follow-up Visit Follow-up Visit Follow-up Visit (Physician/COMPUTER NETWORK SUPPORT SPECIALIST (Physician/COMPUTER NETWORK SUPPORT SPECIALIST (Physician/COMPUTER NETWORK SUPPORT SPECIALIST ) ) ) Arrival Mode Walker Ambulatory, Ambulatory, Walker Walker Transfer Assistance None Patient Identification Verified (Name & Yes Yes ) Patient Requires Transmission-Based No No Precautions Safety Precautions NA Height and Weight Body Mass Index (BMI) 20.0 20.0 20.0 BMI Classification Normal Normal Normal Vital Signs Temperature (97.8 F-99.1 F) 97.4 F L 97.2 F L 97.6 F L Temperature Source Temporal Temporal Temporal Pulse Rate (60-100) 92 74 81 Pulse Location Monitor Monitor Respiratory Rate (12-18) 18 18 22 H Respiratory rate source Observation Observation Blood Pressure (90/60-120/80) 119/83 H 119/73 144/77 H Blood Pressure Mean (mm Hg) 95 88 99 Source Monitor Monitor History Since Last Visit- (Skip if this is Patient's initial visit) Have you changed medications since your No No No last visit? Any new allergies or adverse reactions No No No Had a fall/change in ADL's that may No No increase risk of falls Signs or symptoms of abuse and/or No No No neglect since last visit Have you been in the hospital since your No No No last visit? Has dressing in place as prescribed Yes Yes Yes Has compression in place as prescribed N/A N/A N/A Has offloadiing in place as prescribed N/A Yes Yes Experienced any changes in pain level or No No No management Pain Scale: 0-10 Numeric Is Patient Pain Free? Yes Yes No 11/01/22 10:31 WC - Today's Visit Information Type of service Follow-up Visit (Physician/COMPUTER NETWORK SUPPORT SPECIALIST ) Arrival Mode Ambulatory, Walker Transfer Assistance None Patient Identification Verified (Name & Yes ) Patient Requires Transmission-Based No Precautions Safety Precautions Height and Weight Body Mass Index (BMI) 20.0 BMI Classification Normal Vital Signs Temperature (97.8 F-99.1 F) 97.3 F L Temperature Source Temporal Pulse Rate (60-100) 84 Pulse Location Monitor Respiratory Rate (12-18) 20 H Respiratory rate source Observation Blood Pressure (90/60-120/80) 131/67 H Blood Pressure Mean (mm Hg) 88 Source Monitor History Since Last Visit- (Skip if this is Patient's initial visit) Have you changed medications since your No last visit? Any new allergies or adverse reactions No Had a fall/change in ADL's that may No increase risk of falls Signs or symptoms of abuse and/or No neglect since last visit Have you been in the hospital since your No last visit? Has dressing in place as prescribed Yes Has compression in place as prescribed N/A Has offloadiing in place as prescribed Yes Experienced any changes in pain level or No management Pain Scale: 0-10 Numeric Is Patient Pain Free? Yes - Nurse 1 - General Ulcer Measurement Start: 10/11/22 10:34 Freq: Status: Active Protocol: Activity Type Activity Date Activity User E-sign Co-sign Detail Recorded Client Recorded Date Recorded By Document 10/11/22 10:34 PL [id number] 10/11/22 10:43 PL Document 10/18/22 10:29 DL [id number] 10/18/22 10:35 DL Document 10/25/22 10:13 DL [id number] 10/25/22 10:19 DL Document 11/01/22 10:31 DL [id number] 11/01/22 10:38 DL 10/11/22 10/18/22 10/25/22 10:34 10:29 10:13 Wound Center Nurse 1 1. sacral -Current Size (cm) - Length 4.0 3.3 3 -Current Size (cm) - Width 2.5 1.8 1.6 -Current Size (cm) - Depth 0.4 0.2 0.3 -Total Square Cm 10.00 5.94 4.8 -Photo Taken No No Yes -Tunneling No -Undermining/Tunneling No -Circular Undermining No -Exudate Amt Medium Medium Medium -Exudate Type Serosanguineous Yellow/Green Serosanguineous -Wound Margin Thickened & Distinct, Thickened Rolled Under Outline Attached -Granulation Amt Medium (34-66%) Large (67-100%) Medium (34-66%) -Granulation Quality Red Pale,[place] -Slough/Fibrin Yes -Necrosis Amt Medium (34-66%) Small (1-33%) Medium (34-66%) -Necrotic Tissue Type Adherent Slough Adherent Slough Adherent Slough -Structure Exposed N/A N/A -Texture (Mahnaz-wound Skin Appearance) Scarring Scarring -Moisture (Mahnaz-wound Skin Appearance) No Abnormality No Abnormality -Color (Mahnaz-wound Skin Appearance) No Abnormality No Abnormality -Temperature (Mahnaz-wound Skin No Abnormality No Abnormality No Abnormality Appearance) (Pt Warm) (Pt Warm) (Pt Warm) -Tenderness on Palpation (Mahnaz-wound No No No Skin Appearance) -Ulcer Cleansing Soap and Water Soap and Water Soap and Water -Foul Odor after Cleansing No No -Anesthetic Used 5% Lidocaine 5% Lidocaine 5% Lidocaine Gel Gel Gel 11/01/22 10:31 Wound Center Nurse 1 1. sacral -Current Size (cm) - Length 3.4 -Current Size (cm) - Width 2.5 -Current Size (cm) - Depth 0.4 -Total Square Cm 8.50 -Photo Taken Yes -Tunneling -Undermining/Tunneling -Circular Undermining -Exudate Amt Medium -Exudate Type Serosanguineous -Wound Margin Thickened & Rolled Under -Granulation Amt Medium (34-66%) -Granulation Quality Red -Slough/Fibrin -Necrosis Amt Medium (34-66%) -Necrotic Tissue Type Adherent Slough -Structure Exposed N/A -Texture (Mahnaz-wound Skin Appearance) Scarring -Moisture (Mahnaz-wound Skin Appearance) Maceration -Color (Mahnaz-wound Skin Appearance) No Abnormality -Temperature (Mahnaz-wound Skin No Abnormality Appearance) (Pt Warm) -Tenderness on Palpation (Mahnaz-wound Skin Appearance) -Ulcer Cleansing -Foul Odor after Cleansing -Anesthetic Used 5% Lidocaine Gel WC - Nurse 2 - General Ulcer CM Notes Start: 10/11/22 10:34 Freq: Status: Active Protocol: Activity Type Activity Date Activity User E-sign Co-sign Detail Recorded Client Recorded Date Recorded By Document 10/11/22 10:55 [id number] 10/11/22 10:58 Document 10/18/22 10:42 [id number] 10/18/22 10:44 Document 10/25/22 10:30 [id number] 10/25/22 10:32 Document 11/01/22 10:45 [id number] 11/01/22 10:53 10/11/22 10/18/22 10/25/22 10:55 10:42 10:30 Wound Center Nurse 2 1. sacral -Time 10:55 10:42 10:30 -Correct Patient Yes Yes Yes -Correct Side, Site, Position Yes Yes Yes -Correct Procedure Yes Yes Yes -Procedure Performed Yes Yes Yes -Type of Procedure Debridement Debridement Debridement -Clinical Debridement Subcutaneous Subcutaneous Subcutaneous -Tissue Removed Subcutaneous Subcutaneous Subcutaneous -Post Debridement (cm) - Length 3.5 2.2 3.4 -Post Debridement (cm) - Width 4.5 4 2.2 -Post Debridement (cm) - Depth 0.2 0.2 0.2 -Total Square (Post) (cm) 15.75 8.8 7.48 -Area of Debridement (cm) - Length 3.5 2.2 3.4 -Area of Debridement (cm) - Width 4.5 4 2.2 -Total Square (Area) (cm) 15.75 8.8 7.48 -Tunneling No No No -Undermining/Tunneling No No No -Circular Undermining No No No -Wound/Ulcer Outcome Not Healed Not Healed Not Healed -Ulcer Cleansing Rinsed/ Rinsed/ Irrigated with Irrigated with Saline Saline -Foul Odor after Cleansing No No -Bioengineered Tissue No No -Bleeding Controlled with Pressure Pressure Pressure -Treatment Response Procedure Procedure Procedure Tolerated Well Tolerated Well Tolerated Well -Offloading No No No -Debridement - Subq, 1st 20sq cm Yes Yes Yes Pain Scale: 0-10 Numeric Is Patient Pain Free? Yes Yes Yes 11/01/22 10:45 Wound Center Nurse 2 1. sacral -Time 10:45 -Correct Patient Yes -Correct Side, Site, Position Yes -Correct Procedure Yes -Procedure Performed Yes -Type of Procedure Debridement -Clinical Debridement Subcutaneous -Tissue Removed Subcutaneous -Post Debridement (cm) - Length 3.2 -Post Debridement (cm) - Width 2.5 -Post Debridement (cm) - Depth 0.3 -Total Square (Post) (cm) 8.00 -Area of Debridement (cm) - Length 3.2 -Area of Debridement (cm) - Width 2.5 -Total Square (Area) (cm) 8.00 -Tunneling No -Undermining/Tunneling No -Circular Undermining No -Wound/Ulcer Outcome Not Healed -Ulcer Cleansing Rinsed/ Irrigated with Saline -Foul Odor after Cleansing No -Bioengineered Tissue No -Bleeding Controlled with Pressure -Treatment Response Procedure Tolerated Well -Offloading No -Debridement - Subq, 1st 20sq cm Yes Pain Scale: 0-10 Numeric Is Patient Pain Free? Yes - Nurse 3 - General Ulcer D/C NN Start: 10/11/22 10:34 Freq: Status: Active Protocol: Activity Type Activity Date Activity User E-sign Co-sign Detail Recorded Client Recorded Date Recorded By Document 10/11/22 10:58 [id number] 10/11/22 10:59 Document 10/18/22 10:44 [id number] 10/18/22 10:45 Document 10/25/22 11:51 AK [id number] 10/25/22 11:52 AK Document 11/01/22 11:01 DL [id number] 11/01/22 11:02 DL 10/11/22 10/18/22 10/25/22 10:58 10:44 11:51 Wound Care Center Nurse 3 1. sacral -Ulcer Cleansing Rinsed/ Rinsed/ Rinsed/ Irrigated with Irrigated with Irrigated with Saline Saline Saline -Foul Odor after Cleansing No No No -Negative Pressure Wound Therapy N/A -Primary Dressing Applied Silvercel Silvercel Silvercel -Other Dressing ABD -Primary Dressing Covered/Secured with Dry Gauze Dry Gauze, Dry Gauze, Secured with Secured with Tape Tape -Other Covering -Silvercel 1 1 1 Treatment Response Pain Scale: 0-10 Numeric Is Patient Pain Free? Yes Yes No WC - Visit Discharge Discharge Condition Stable Stable Stable Ambulatory Status Ambulatory, Ambulatory, Ambulatory, Walker Walker Wheelchair Transportation Private Auto Private Auto Private Auto Medication Reconcilliation completed & Yes Yes Yes provided to patient/care provider Clinical Summary of Care Provided No Yes Yes Facility Type Orders Sent 11/01/22 11:01 Wound Care Center Nurse 3 1. sacral -Ulcer Cleansing Rinsed/ Irrigated with Saline -Foul Odor after Cleansing No -Negative Pressure Wound Therapy -Primary Dressing Applied Silvercel -Other Dressing -Primary Dressing Covered/Secured with Dry Gauze, Secured with Tape -Other Covering ABD -Silvercel 1 Treatment Response Procedure Tolerated Well Pain Scale: 0-10 Numeric Is Patient Pain Free? Yes WC - Visit Discharge Discharge Condition Stable Ambulatory Status Ambulatory, Walker Transportation Private Auto Medication Reconcilliation completed & provided to patient/care provider Clinical Summary of Care Provided Facility Type Home Health Orders Sent Yes Assessment/Plan Assessment/Plan (1) Pressure ulcer of sacral region, stage 4: CODE(S): L89.154 - Pressure ulcer of sacral region, stage 4 (2) Rheumatoid arthritis: CODE(S): M06.9 - Rheumatoid arthritis, unspecified (3) Debility: CODE(S): R53.81 - Other malaise (4) Other acute postprocedural pain: CODE(S): G89.18 - Other acute postprocedural pain (5) Impacted cerumen of both ears: CODE(S): H61.23 - Impacted cerumen, bilateral PLAN: Plan Patient evaluated at the wound center today. Wound care - Silvercel dressing topped with fluffed gauze and then ABD to be changed 3 times per week and as needed. Stressed the importance of placing Aquaphor or Vaseline around the edge of the ulcer to help prevent excoriation. Wash ulcer and mahnaz wound with soap and water at the time of the dressing change. I would like her to learn how to do the dressing changes on the days that home health is not able to do them. She is resistant to learning how to change this dressing and states that she has no one to help her change it. Had further discussion with her this week about changing the dressing herself and she states she is absolutely not able to do it herself. She completed the Diflucan for her positive operative fungal cultures. Labs drawn on 10/13/22: Total Bili 0.30, AST 17, ALT 20, Alk Phos 151. On 07/25/22 Alk Phos 152. Prealbumin 12.8 on 05/23/22. Encouraged increase protein supplementation. She state she is drinking Tommy 1-2 times per day in addition to her increase in dietary protein. A wound culture was obtained today, 11/01/22.? A positive culture will necessitate antibiotic therapy. Follow 1 week. Call or come in sooner if develop any questions or concerns.
[2022-11-08 10:35] VITALS: BP 131/73; PULSE 94; TEMP 36.2
--- NOTE | 2022-11-08 12:33 | PCM.WC.PN ---
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 Surgery 05/22/[address] Lee for Excision necrotic left sacral pressure sore, Stage IV, with partial ostectomy for osteomyelitis. Operative tissue cultures positive for Eschericha coli, Streptococcus sanguinis, Corynebacterium amycolatum, Provotella oralis, Anaerobic cocci, and most recently Fernanda albicans and Aspirgillus fumigatus. Operative bone culture positive for Provotella disiens and Fernanda albicans. She was treated with Levaquin and Augmentin. She developed muscle pain so the Levaquin was switched to Doxycycline. The fungal cultures just recently came back and we will start her on Diflucan. Wound culture obtained 11/01/22 which was positive for Pseudomonas aeruginosa (very rare). Corynebacterium striatum and Anaerobic cocci. With her multiple drug allergies, there is not an oral antibiotic to treat the Pseudomonas, but it is rare, so will start cleansing with chlorhexidine at the time of the dressing change 3 times per week and start her on Augmentin and probiotic. Wound care is wound Silver alginate to be changed 3 times per week and as needed. She has home health to assist with the dressing changes. Today she denies fever, chills, nausea or vomiting. She states she is doing well at home. Progress of Wound: Left sacral ulcer is beefy pink. It is stable in size. No undermining is present. The edges of the ulcer have started to curl in. Mahnaz wound has improved. Objective Data Objective Data Vital Signs: Vital Signs Temp Pulse Resp BP 97.1 F L 94 20 H 131/73 H 11/08/22 10:35 11/08/22 10:35 11/01/22 10:31 11/08/22 10:35 Weight: 124 lb Body Mass Index (BMI) 20.0 Lab / Micro Data Micro: Microbiology 11/01/22 10:50 Wound Abcess - Sacral Gram Stain - Final 11/01/22 10:50 Wound Abcess - Sacral Wound Culture - Final Pseudomonas aeruginosa Corynebacterium striatum 11/01/22 10:50 Wound Abcess - Sacral Anaerobic Culture - Final Anaerobic cocci Charges/Coding Procedures Integumentary [id number]: [id number] Dana subq tissue 20 sq cm/< Debridement Note Debridement Note Wound debrided: Sacral ulcer Laterality: Left Wound Grade/Stage: Stage IV Type of Debridement: Excisional debridement Anesthesia Used: 4% Lidocaine Solution and 5% Lidocaine Gel Depth: Down to and including healthy tissue and in the subcutaneous layer Percentage of wound debrided: 100 Instrument Used: 5mm curette Tissue Removed: Devitalized tissue and slough Severity: Fat Layer Exposed Amount of bleeding with debridement: Mild Bleeding Controlled with: Pressure and Compression and gauze Patient tolerated procedure: Patient tolerated procedure well Debridement Free Text: Debrided edges of the ulcer to help prevent curling in to help stimulate wound healing. Post-Debridement Measurements and Additional Note: Post-Debridement Measurements/Treatment - Nurse 1 - General Ulcer Assessment Start: 10/11/22 10:34 Freq: Status: Active Protocol: JUSTIN Activity Type Activity Date Activity User E-sign Co-sign Detail Recorded Client Recorded Date Recorded By Document 10/11/22 10:34 PL [id number] 10/11/22 10:43 PL Document 10/18/22 10:29 DL [id number] 10/18/22 10:35 DL Document 10/25/22 10:13 DL [id number] 10/25/22 10:19 DL Document 11/01/22 10:31 DL [id number] 11/01/22 10:38 DL Document 11/08/22 10:35 AK [id number] 11/08/22 10:37 AK 10/11/22 10/18/22 10/25/22 10:34 10:29 10:13 - Today's Visit Information Type of service Follow-up Visit Follow-up Visit Follow-up Visit (Physician/SAP BASIS (Physician/SAP BASIS (Physician/SAP BASIS ) ) ) Arrival Mode Walker Ambulatory, Ambulatory, Walker Walker Transfer Assistance None Patient Identification Verified (Name & Yes Yes ) Patient Requires Transmission-Based No No Precautions Safety Precautions NA Height and Weight Body Mass Index (BMI) 20.0 20.0 20.0 BMI Classification Normal Normal Normal Vital Signs Temperature (97.8 F-99.1 F) 97.4 F L 97.2 F L 97.6 F L Temperature Source Temporal Temporal Temporal Pulse Rate (60-100) 92 74 81 Pulse Location Monitor Monitor Respiratory Rate (12-18) 18 18 22 H Respiratory rate source Observation Observation Blood Pressure (90/60-120/80) 119/83 H 119/73 144/77 H Blood Pressure Mean (mm Hg) 95 88 99 Source Monitor Monitor History Since Last Visit- (Skip if this is Patient's initial visit) Have you changed medications since your No No No last visit? Any new allergies or adverse reactions No No No Had a fall/change in ADL's that may No No increase risk of falls Signs or symptoms of abuse and/or No No No neglect since last visit Have you been in the hospital since your No No No last visit? Has dressing in place as prescribed Yes Yes Yes Has compression in place as prescribed N/A N/A N/A Has offloadiing in place as prescribed N/A Yes Yes Experienced any changes in pain level or No No No management Left Footwear Right Footwear Pain Scale: 0-10 Numeric Is Patient Pain Free? Yes Yes No 11/01/22 11/08/22 10:31 10:35 WC - Today's Visit Information Type of service Follow-up Visit Follow-up Visit (Physician/SAP BASIS (Physician/SAP BASIS ) ) Arrival Mode Ambulatory, Ambulatory Walker Transfer Assistance None Patient Identification Verified (Name & Yes No ) Patient Requires Transmission-Based No No Precautions Safety Precautions NA Height and Weight Body Mass Index (BMI) 20.0 20.0 BMI Classification Normal Normal Vital Signs Temperature (97.8 F-99.1 F) 97.3 F L 97.1 F L Temperature Source Temporal Temporal Pulse Rate (60-100) 84 94 Pulse Location Monitor Monitor Respiratory Rate (12-18) 20 H Respiratory rate source Observation Blood Pressure (90/60-120/80) 131/67 H 131/73 H Blood Pressure Mean (mm Hg) 88 92 Source Monitor Monitor History Since Last Visit- (Skip if this is Patient's initial visit) Have you changed medications since your No No last visit? Any new allergies or adverse reactions No No Had a fall/change in ADL's that may No No increase risk of falls Signs or symptoms of abuse and/or No No neglect since last visit Have you been in the hospital since your No No last visit? Has dressing in place as prescribed Yes Yes Has compression in place as prescribed N/A N/A Has offloadiing in place as prescribed Yes N/A Experienced any changes in pain level or No No management Left Footwear Regular Shoe Right Footwear Regular Shoe Pain Scale: 0-10 Numeric Is Patient Pain Free? Yes Yes WC - Nurse 1 - General Ulcer Measurement Start: 10/11/22 10:34 Freq: Status: Active Protocol: Activity Type Activity Date Activity User E-sign Co-sign Detail Recorded Client Recorded Date Recorded By Document 10/11/22 10:34 PL [id number] 10/11/22 10:43 PL Document 10/18/22 10:29 DL [id number] 10/18/22 10:35 DL Document 10/25/22 10:13 DL [id number] 10/25/22 10:19 DL Document 11/01/22 10:31 DL [id number] 11/01/22 10:38 DL Document 11/08/22 10:35 AK [id number] 11/08/22 10:37 AK 10/11/22 10/18/22 10/25/22 10:34 10:29 10:13 Wound Center Nurse 1 1. sacral -Combined with other wound -Current Size (cm) - Length 4.0 3.3 3 -Current Size (cm) - Width 2.5 1.8 1.6 -Current Size (cm) - Depth 0.4 0.2 0.3 -Total Square Cm 10.00 5.94 4.8 -Photo Taken No No Yes -Tunneling No -Undermining/Tunneling No -Circular Undermining No -Change in Wound Grade/Stage -Exudate Amt Medium Medium Medium -Exudate Type Serosanguineous Yellow/Green Serosanguineous -Wound Margin Thickened & Distinct, Thickened Rolled Under Outline Attached -Granulation Amt Medium (34-66%) Large (67-100%) Medium (34-66%) -Granulation Quality Red Pale,[place] -Slough/Fibrin Yes -Necrosis Amt Medium (34-66%) Small (1-33%) Medium (34-66%) -Necrotic Tissue Type Adherent Slough Adherent Slough Adherent Slough -Structure Exposed N/A N/A -Texture (Mahnaz-wound Skin Appearance) Scarring Scarring -Moisture (Mahnaz-wound Skin Appearance) No Abnormality No Abnormality -Color (Mahnaz-wound Skin Appearance) No Abnormality No Abnormality -Temperature (Mahnaz-wound Skin No Abnormality No Abnormality No Abnormality Appearance) (Pt Warm) (Pt Warm) (Pt Warm) -Tenderness on Palpation (Mahnaz-wound No No No Skin Appearance) -Ulcer Cleansing Soap and Water Soap and Water Soap and Water -Foul Odor after Cleansing No No -Anesthetic Used 5% Lidocaine 5% Lidocaine 5% Lidocaine Gel Gel Gel 11/01/22 11/08/22 10:31 10:35 Wound Center Nurse 1 1. sacral -Combined with other wound No -Current Size (cm) - Length 3.4 2.8 -Current Size (cm) - Width 2.5 1.5 -Current Size (cm) - Depth 0.4 0.4 -Total Square Cm 8.50 4.20 -Photo Taken Yes Yes -Tunneling No -Undermining/Tunneling No -Circular Undermining No -Change in Wound Grade/Stage No -Exudate Amt Medium Medium -Exudate Type Serosanguineous Serosanguineous -Wound Margin Thickened & Distinct, Rolled Under Outline Attached -Granulation Amt Medium (34-66%) Large (67-100%) -Granulation Quality Red [place] -Slough/Fibrin Yes -Necrosis Amt Medium (34-66%) Small (1-33%) -Necrotic Tissue Type Adherent Slough Adherent Slough -Structure Exposed N/A N/A -Texture (Mahnaz-wound Skin Appearance) Scarring Assessed, Scarring -Moisture (Mahnaz-wound Skin Appearance) Maceration No Abnormality, Assessed -Color (Mahnaz-wound Skin Appearance) No Abnormality No Abnormality, Assessed -Temperature (Mahnaz-wound Skin No Abnormality No Abnormality Appearance) (Pt Warm) (Pt Warm) -Tenderness on Palpation (Mahnaz-wound No Skin Appearance) -Ulcer Cleansing Rinsed/ Irrigated with Saline -Foul Odor after Cleansing No -Anesthetic Used 5% Lidocaine 5% Lidocaine Gel Gel WC - Nurse 2 - General Ulcer CM Notes Start: 10/11/22 10:34 Freq: Status: Active Protocol: Activity Type Activity Date Activity User E-sign Co-sign Detail Recorded Client Recorded Date Recorded By Document 10/11/22 10:55 [id number] 10/11/22 10:58 Document 10/18/22 10:42 [id number] 10/18/22 10:44 Document 10/25/22 10:30 [id number] 10/25/22 10:32 Document 11/01/22 10:45 [id number] 11/01/22 10:53 Document 11/08/22 10:41 [id number] 11/08/22 10:43 10/11/22 10/18/22 10/25/22 10:55 10:42 10:30 Wound Center Nurse 2 1. sacral -Time 10:55 10:42 10:30 -Correct Patient Yes Yes Yes -Correct Side, Site, Position Yes Yes Yes -Correct Procedure Yes Yes Yes -Procedure Performed Yes Yes Yes -Type of Procedure Debridement Debridement Debridement -Clinical Debridement Subcutaneous Subcutaneous Subcutaneous -Tissue Removed Subcutaneous Subcutaneous Subcutaneous -Post Debridement (cm) - Length 3.5 2.2 3.4 -Post Debridement (cm) - Width 4.5 4 2.2 -Post Debridement (cm) - Depth 0.2 0.2 0.2 -Total Square (Post) (cm) 15.75 8.8 7.48 -Area of Debridement (cm) - Length 3.5 2.2 3.4 -Area of Debridement (cm) - Width 4.5 4 2.2 -Total Square (Area) (cm) 15.75 8.8 7.48 -Tunneling No No No -Undermining/Tunneling No No No -Circular Undermining No No No -Wound/Ulcer Outcome Not Healed Not Healed Not Healed -Ulcer Cleansing Rinsed/ Rinsed/ Irrigated with Irrigated with Saline Saline -Foul Odor after Cleansing No No -Bioengineered Tissue No No -Bleeding Controlled with Pressure Pressure Pressure -Treatment Response Procedure Procedure Procedure Tolerated Well Tolerated Well Tolerated Well -Offloading No No No -Debridement - Subq, 1st 20sq cm Yes Yes Yes Pain Scale: 0-10 Numeric Is Patient Pain Free? Yes Yes Yes 11/01/22 11/08/22 10:45 10:41 Wound Center Nurse 2 1. sacral -Time 10:45 10:41 -Correct Patient Yes Yes -Correct Side, Site, Position Yes Yes -Correct Procedure Yes Yes -Procedure Performed Yes Yes -Type of Procedure Debridement Debridement -Clinical Debridement Subcutaneous Subcutaneous -Tissue Removed Subcutaneous Subcutaneous -Post Debridement (cm) - Length 3.2 3.5 -Post Debridement (cm) - Width 2.5 3.0 -Post Debridement (cm) - Depth 0.3 0.2 -Total Square (Post) (cm) 8.00 10.50 -Area of Debridement (cm) - Length 3.2 3.5 -Area of Debridement (cm) - Width 2.5 3.0 -Total Square (Area) (cm) 8.00 10.50 -Tunneling No No -Undermining/Tunneling No No -Circular Undermining No No -Wound/Ulcer Outcome Not Healed Not Healed -Ulcer Cleansing Rinsed/ Rinsed/ Irrigated with Irrigated with Saline Saline -Foul Odor after Cleansing No No -Bioengineered Tissue No No -Bleeding Controlled with Pressure Pressure -Treatment Response Procedure Procedure Tolerated Well Tolerated Well -Offloading No No -Debridement - Subq, 1st 20sq cm Yes Yes Pain Scale: 0-10 Numeric Is Patient Pain Free? Yes Yes - Nurse 3 - General Ulcer D/C NN Start: 10/11/22 10:34 Freq: Status: Active Protocol: Activity Type Activity Date Activity User E-sign Co-sign Detail Recorded Client Recorded Date Recorded By Document 10/11/22 10:58 [id number] 10/11/22 10:59 Document 10/18/22 10:44 [id number] 10/18/22 10:45 Document 10/25/22 11:51 AK [id number] 10/25/22 11:52 AK Document 11/01/22 11:01 DL [id number] 11/01/22 11:02 DL Document 11/08/22 11:19 AK [id number] 11/08/22 11:20 AK 10/11/22 10/18/22 10/25/22 10:58 10:44 11:51 Wound Care Center Nurse 3 1. sacral -Ulcer Cleansing Rinsed/ Rinsed/ Rinsed/ Irrigated with Irrigated with Irrigated with Saline Saline Saline -Foul Odor after Cleansing No No No -Negative Pressure Wound Therapy N/A -Primary Dressing Applied Silvercel Silvercel Silvercel -Other Dressing ABD -Primary Dressing Covered/Secured with Dry Gauze Dry Gauze, Dry Gauze, Secured with Secured with Tape Tape -Other Covering -Silvercel 1 1 1 Treatment Response Pain Scale: 0-10 Numeric Is Patient Pain Free? Yes Yes No WC - Visit Discharge Discharge Condition Stable Stable Stable Ambulatory Status Ambulatory, Ambulatory, Ambulatory, Walker Walker Wheelchair Transportation Private Auto Private Auto Private Auto Medication Reconcilliation completed & Yes Yes Yes provided to patient/care provider Clinical Summary of Care Provided No Yes Yes Facility Type Orders Sent 11/01/22 11/08/22 11:01 11:19 Wound Care Center Nurse 3 1. sacral -Ulcer Cleansing Rinsed/ Rinsed/ Irrigated with Irrigated with Saline Saline -Foul Odor after Cleansing No No -Negative Pressure Wound Therapy N/A -Primary Dressing Applied Silvercel Silvercel -Other Dressing ABD -Primary Dressing Covered/Secured with Dry Gauze, Dry Gauze, Secured with Secured with Tape Tape -Other Covering ABD -Silvercel 1 1 Treatment Response Procedure Tolerated Well Pain Scale: 0-10 Numeric Is Patient Pain Free? Yes Yes WC - Visit Discharge Discharge Condition Stable Stable Ambulatory Status Ambulatory, Ambulatory, Walker Walker Transportation Private Auto Private Auto Medication Reconcilliation completed & Yes provided to patient/care provider Clinical Summary of Care Provided Yes Facility Type Home Health Orders Sent Yes Assessment/Plan Assessment/Plan (1) Pressure ulcer of sacral region, stage 4: CODE(S): L89.154 - Pressure ulcer of sacral region, stage 4 (2) Rheumatoid arthritis: CODE(S): M06.9 - Rheumatoid arthritis, unspecified (3) Debility: CODE(S): R53.81 - Other malaise (4) Other acute postprocedural pain: CODE(S): G89.18 - Other acute postprocedural pain PLAN: Plan Patient evaluated at the wound center today. Wound care - Silvercel dressing topped with fluffed gauze and then ABD to be changed 3 times per week and as needed. Stressed the importance of placing Aquaphor or Vaseline around the edge of the ulcer to help prevent excoriation. Wash ulcer and mahnaz wound with soap and water at the time of the dressing change. Will start to use chlorhexidine wash at each dressing change. I would like her to learn how to do the dressing changes on the days that home health is not able to do them. She states that she is not able to do this and she has no one at home to help her change it. Wound culture obtained 11/01/22 which was positive for Pseudomonas aeruginosa (very rare amount), Corynebacterium striatum, and Anaerobic cocci. She is allergic to the oral options to treat the Pseudomonas. I spoke with the hospital pharmacist Audra Martinez, about her wound culture and she stated that fluoroquinolones are the only option to treat pseudomonas. I discussed with the patient about referring her to ID for further evaluation and treatment but she absolutely refuses to see him because when she was hospitalized, he discussed the possibility of her needing a colostomy. I would like to have her do dakin's moistened gauze daily to treat this, but the patient is not able to have daily dressing changes due to no help when home health is not present and she is not able to change the dressing herself. Will have her washing the ulcer with chlorhexidine at the time of the dressing change. Will prescribe Augmentin to treat the anaerobic culture and she will take a probiotic. I discussed this extensively with the patient. She completed the Diflucan for her positive operative fungal cultures. Labs drawn on 10/13/22: Total Bili 0.30, AST 17, ALT 20, Alk Phos 151. On 07/25/22 Alk Phos 152. Prealbumin 12.8 on 05/23/22. Encouraged increase protein supplementation. She state she is drinking Tommy 1-2 times per day in addition to her increase in dietary protein. Follow 1 week. Call or come in sooner if develop any questions or concerns.
== END 2022-11-08 23:59 | disposition home or self-care (01) ==
LOC: WC 10:00
PROVIDERS: PCP Family Medicine; Visit Provider Nurse Practitioner Family
DX: L89.154 Pressure ulcer of sacral region, stage 4 (principal); M06.9 Rheumatoid arthritis, unspecified; B37.9 Candidiasis, unspecified; R53.81 Other malaise; H61.23 Impacted cerumen, bilateral; G89.18 Other acute postprocedural pain; Z79.82 Long term (current) use of aspirin; Z79.899 Other long term (current) drug therapy; Z87.39 Personal history of other diseases of the musculoskeletal system and connective tissue
CPT/HCPCS: 11042; 87070; 87075; 87077; 87186; 87205

== ENCOUNTER 2022-12-06 10:15 | Outpatient (RCR) | payer MEDICARE, OTHER, SELFPAY ==
[2022-11-09 00:18] VITALS: BP 131/73; PULSE 94; RESP 20; TEMP 36.2
[2022-11-15 10:28] VITALS: BP 115/71; PULSE 76; RESP 18; TEMP 36.1
--- NOTE | 2022-11-15 12:20 | PN.PCM_ITS ---
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 Surgery 05/22/[address] Lee for Excision necrotic left sacral pressure sore, Stage IV, with partial ostectomy for osteomyelitis. Operative tissue cultures positive for Eschericha coli, Streptococcus sanguinis, Corynebacterium amycolatum, Provotella oralis, Anaerobic cocci, and most recently Fernanda albicans and Aspirgillus fumigatus. Operative bone culture positive for Provotella disiens and Fernanda albicans. She was treated with Levaquin and Augmentin. She developed muscle pain so the Levaquin was switched to Doxycycline. The fungal cultures just recently came back and we will start her on Diflucan. Wound culture obtained 11/01/22 which was positive for Pseudomonas aeruginosa (very rare). Corynebacterium striatum and Anaerobic cocci. With her multiple drug allergies, there is not an oral antibiotic to treat the Pseudomonas, but it is rare, so will start cleansing with chlorhexidine at the time of the dressing change 3 times per week and start her on Augmentin and probiotic. Wound care is wound Silver alginate to be changed 3 times per week and as needed. She has home health to assist with the dressing changes. Today she denies fever, chills, nausea or vomiting. She states she is doing well at home. Progress of Wound: Left sacral ulcer is beefy pink. It is stable in size. No undermining is present. Mahnaz wound is stable. Objective Data Objective Data Vital Signs: Vital Signs Temp Pulse Resp BP 96.9 F L 76 18 115/71 11/15/22 10:28 11/15/22 10:28 11/15/22 10:28 11/15/22 10:28 Weight: 124 lb Body Mass Index (BMI) 20.0 Charges/Coding Procedures Integumentary 111xxx-113xx: 19535 Dana subq tissue 20 sq cm/< Debridement Note Debridement Note Wound debrided: Sacral ulcer Laterality: Left Wound Grade/Stage: Stage IV Type of Debridement: Excisional debridement Anesthesia Used: 4% Lidocaine Solution and 5% Lidocaine Gel Depth: Down to and including healthy tissue and in the subcutaneous layer Percentage of wound debrided: 100 Instrument Used: 5mm curette Tissue Removed: Devitalized tissue and slough Severity: Fat Layer Exposed Amount of bleeding with debridement: Mild Bleeding Controlled with: Pressure and Compression and gauze Patient tolerated procedure: Patient tolerated procedure well Debridement Free Text: Debrided edges of the ulcer to help prevent curling in to help stimulate wound healing. 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 ) Arrival Mode Ambulatory, Walker Transfer Assistance None Patient Identification Verified (Name & Yes ) Patient Requires Transmission-Based No Precautions Height and Weight Body Mass Index (BMI) 20.0 BMI Classification Normal Vital Signs Temperature (97.8 F-99.1 F) 96.9 F L Temperature Source Temporal Pulse Rate (60-100) 76 Pulse Location Monitor Respiratory Rate (12-18) 18 Respiratory rate source Observation Blood Pressure (90/60-120/80) 115/71 Blood Pressure Mean (mm Hg) 85 Source Monitor History Since Last Visit- (Skip if this is Patient's initial visit) Have you changed medications since your No last visit? Any new allergies or adverse reactions No Had a fall/change in ADL's that may No increase risk of falls Signs or symptoms of abuse and/or No neglect since last visit Have you been in the hospital since your No last visit? Has dressing in place as prescribed Yes Has compression in place as prescribed N/A Has offloadiing in place as prescribed Yes Experienced any changes in pain level or No management Pain Scale: 0-10 Numeric Is Patient Pain Free? Yes - Nurse 1 - General Ulcer Measurement Start: 11/15/22 10:26 Freq: Status: Active Protocol: Activity Type Activity Date Activity User E-sign Co-sign Detail Recorded Client Recorded Date Recorded By Document 11/15/22 10:28 JANELL [id number] 11/15/22 10:34 DL 11/15/22 10:28 Wound Center Nurse 1 1. sacral -Current Size (cm) - Length 2.8 -Current Size (cm) - Width 1.5 -Current Size (cm) - Depth 0.5 -Total Square Cm 4.20 -Exudate Amt Medium -Exudate Type Serosanguineous -Wound Margin Thickened & Rolled Under -Granulation Amt Large (67-100%) -Granulation Quality Red -Necrosis Amt Small (1-33%) -Necrotic Tissue Type Adherent Slough -Structure Exposed N/A -Texture (Mahnaz-wound Skin Appearance) Scarring -Moisture (Mahnaz-wound Skin Appearance) No Abnormality -Color (Mahnaz-wound Skin Appearance) No Abnormality -Temperature (Mahnaz-wound Skin No Abnormality Appearance) (Pt Warm) -Tenderness on Palpation (Mahnaz-wound No Skin Appearance) -Ulcer Cleansing Soap and Water -Anesthetic Used 5% Lidocaine Gel WC - Nurse 2 - General Ulcer CM Notes Start: 11/15/22 10:26 Freq: Status: Active Protocol: Activity Type Activity Date Activity User E-sign Co-sign Detail Recorded Client Recorded Date Recorded By Document 11/15/22 10:40 [id number] 11/15/22 10:49 11/15/22 10:40 Wound Center Nurse 2 -Time 10:41 -Correct Patient Yes -Correct Side, Site, Position Yes -Correct Procedure Yes -Procedure Performed Yes -Type of Procedure Debridement -Clinical Debridement Subcutaneous -Tissue Removed Subcutaneous -Post Debridement (cm) - Length 3.4 -Post Debridement (cm) - Width 2.6 -Post Debridement (cm) - Depth 0.2 -Total Square (Post) (cm) 8.84 -Area of Debridement (cm) - Length 3.4 -Area of Debridement (cm) - Width 2.6 -Total Square (Area) (cm) 8.84 -Tunneling No -Undermining/Tunneling No -Circular Undermining No -Wound/Ulcer Outcome Not Healed -Ulcer Cleansing Rinsed/ Irrigated with Saline -Foul Odor after Cleansing No -Bioengineered Tissue No -Bleeding Controlled with Pressure -Treatment Response Procedure Tolerated Well -Offloading No -Debridement - Subq, 1st 20sq cm Yes Pain Scale: 0-10 Numeric Is Patient Pain Free? Yes - Nurse 3 - General Ulcer D/C NN Start: 11/15/22 10:26 Freq: Status: Active Protocol: Activity Type Activity Date Activity User E-sign Co-sign Detail Recorded Client Recorded Date Recorded By Document 11/15/22 10:49 [id number] 11/15/22 10:50 11/15/22 10:49 Wound Care Center Nurse 3 1. sacral -Ulcer Cleansing Rinsed/ Irrigated with Saline -Foul Odor after Cleansing No -Primary Dressing Applied Silvercel -Primary Dressing Covered/Secured with Secured with Tape -Other Covering abdomen -Silvercel 1 Pain Scale: 0-10 Numeric Is Patient Pain Free? Yes WC - Visit Discharge Discharge Condition Stable Ambulatory Status Ambulatory, Walker Transportation Private Auto Medication Reconcilliation completed & Yes provided to patient/care provider Clinical Summary of Care Provided Yes Assessment/Plan Assessment/Plan (1) Pressure ulcer of sacral region, stage 4: CODE(S): L89.154 - Pressure ulcer of sacral region, stage 4 (2) Rheumatoid arthritis: CODE(S): M06.9 - Rheumatoid arthritis, unspecified (3) Debility: CODE(S): R53.81 - Other malaise (4) Other acute postprocedural pain: CODE(S): G89.18 - Other acute postprocedural pain PLAN: Plan Patient evaluated at the wound center today. Wound care - Silvercel dressing topped with fluffed gauze and then ABD to be changed 3 times per week and as needed. Stressed the importance of placing Aquaphor or Vaseline around the edge of the ulcer to help prevent excoriation. Wash ulcer and mahnaz wound with soap and water at the time of the dressing change. Will start to use chlorhexidine wash at each dressing change. I would like her to learn how to do the dressing changes on the days that home health is not able to do them. She states that she is not able to do this and she has no one at home to help her change it. Wound culture obtained 11/01/22 which was positive for Pseudomonas aeruginosa (very rare amount), Corynebacterium striatum, and Anaerobic cocci. She is allergic to the oral options to treat the Pseudomonas. I spoke with the hospital pharmacist Audra Martinez, on 11/08/22, about her wound culture and she stated marco antonio t fluoroquinolones are the only option to treat pseudomonas. I discussed with the patient about referring her to ID for further evaluation and treatment but she absolutely refuses to see him because when she was hospitalized, he discussed the possibility of her needing a colostomy and that caused her stress. I would like to have her do dakin's moistened gauze daily to treat this, but the patient is not able to have daily dressing changes due to no help when home health is not present and she is not able to change the dressing herself. Will have her washing the ulcer with chlorhexidine at the time of the dressing change. Will prescribe Augmentin to treat the anaerobic culture and she will take a probiotic. I discussed this extensively with the patient. She completed the Diflucan for her positive operative fungal cultures. Labs drawn on 10/13/22: Total Bili 0.30, AST 17, ALT 20, Alk Phos 151. On 07/25/22 Alk Phos 152. Prealbumin 12.8 on 05/23/22. Encouraged increase protein supplementation. She state she is drinking Tommy 1-2 times per day in addition to her increase in dietary protein. Follow 1 week. Call or come in sooner if develop any questions or concerns.
--- NOTE | 2022-11-21 09:44 | WC ---
RECEIVED TELEPHONE MSG PER NURSE RIAZ. STATES PT IS C/O VAGINAL ITCHING W/ AUGMENTIN USE. THIS NURSE SPOKE W/ ANNETTE PERIOPERATIVE ASSISTANT. PT CALLED AND INSTRUCTED TO TAKE ONE OF HER 200MG DIFLUCAN TABS THAT SHE ALREADY HAS AT HOME, AND REPEAT DOSE IN 3 DAYS. PT WILL BE SEEN HERE BY ANNETTE TOMORROW 11/22.
--- NOTE | 2022-11-22 12:36 | PCM.WC.PN ---
History of Present Illness Date of Service: 11/22/22 Chief Complaint: Left sacral ulcer History of Wound: 72 year old female with below past medical history suffered fall from second story, hospitalized for multi trauma, underwent left tibia intramedullary nail fixation, right hip anterograde intramedullary nail, complicated by encephalopathy from urinary tract infection, stage 4 left sacral pressure ulcer with chronic osteomyelitis, admitted to TCU on 04/17/22 with debility, there for rehabilitation, strengthening, prior to discharge home alone on 06/25/22 with home health/PT/OT. Surgery 05/22/[address] Lee for Excision necrotic left sacral pressure sore, Stage IV, with partial ostectomy for osteomyelitis. Operative tissue cultures positive for Eschericha coli, Streptococcus sanguinis, Corynebacterium amycolatum, Provotella oralis, Anaerobic cocci, and most recently Fernanda albicans and Aspirgillus fumigatus. Operative bone culture positive for Provotella disiens and Fernanda albicans. She was treated with Levaquin and Augmentin. She developed muscle pain so the Levaquin was switched to Doxycycline. The fungal cultures just recently came back and we will start her on Diflucan. Wound culture obtained 11/01/22 which was positive for Pseudomonas aeruginosa (very rare). Corynebacterium striatum and Anaerobic cocci. With her multiple drug allergies, there is not an oral antibiotic to treat the Pseudomonas, but it is rare, so will start cleansing with chlorhexidine at the time of the dressing change 3 times per week and start her on Augmentin and probiotic. Wound care is wound Silver alginate to be changed 3 times per week and as needed. She has home health to assist with the dressing changes. Today she denies fever, chills, nausea or vomiting. She states she is doing well at home. Progress of Wound: Left sacral ulcer is beefy pink. It is stable in size. No undermining is present. Mahnaz wound is stable. She is complaining of having a vaginal yeast infection. Objective Data Objective Data Vital Signs: Vital Signs Temp Pulse Resp BP 96.9 F L 76 18 115/71 11/15/22 10:28 11/15/22 10:28 11/15/22 10:28 11/15/22 10:28 Weight: 124 lb Body Mass Index (BMI) 20.0 Charges/Coding Procedures Integumentary 111xxx-113xx: 55313 Dana subq tissue 20 sq cm/< Debridement Note Debridement Note Wound debrided: Sacral ulcer Laterality: Left Wound Grade/Stage: Stage IV Type of Debridement: Excisional debridement Anesthesia Used: 4% Lidocaine Solution and 5% Lidocaine Gel Depth: Down to and including healthy tissue and in the subcutaneous layer Percentage of wound debrided: 100 Instrument Used: 5mm curette Tissue Removed: Devitalized tissue and slough Severity: Fat Layer Exposed Amount of bleeding with debridement: Mild Bleeding Controlled with: Pressure and Compression and gauze Patient tolerated procedure: Patient tolerated procedure well Debridement Free Text: Debrided edges of the ulcer to help prevent curling in to help stimulate wound healing. 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 ) Arrival Mode Ambulatory, Walker Transfer Assistance None Patient Identification Verified (Name & Yes ) Patient Requires Transmission-Based No Precautions Height and Weight Body Mass Index (BMI) 20.0 BMI Classification Normal Vital Signs Temperature (97.8 F-99.1 F) 96.9 F L Temperature Source Temporal Pulse Rate (60-100) 76 Pulse Location Monitor Respiratory Rate (12-18) 18 Respiratory rate source Observation Blood Pressure (90/60-120/80) 115/71 Blood Pressure Mean (mm Hg) 85 Source Monitor History Since Last Visit- (Skip if this is Patient's initial visit) Have you changed medications since your No last visit? Any new allergies or adverse reactions No Had a fall/change in ADL's that may No increase risk of falls Signs or symptoms of abuse and/or No neglect since last visit Have you been in the hospital since your No last visit? Has dressing in place as prescribed Yes Has compression in place as prescribed N/A Has offloadiing in place as prescribed Yes Experienced any changes in pain level or No management Pain Scale: 0-10 Numeric Is Patient Pain Free? Yes WC - Nurse 1 - General Ulcer Measurement Start: 11/15/22 10:26 Freq: Status: Active Protocol: Activity Type Activity Date Activity User E-sign Co-sign Detail Recorded Client Recorded Date Recorded By Document 11/15/22 10:28 JANELL [id number] 11/15/22 10:34 JANELL 11/15/22 10:28 Wound Center Nurse 1 1. sacral -Current Size (cm) - Length 2.8 -Current Size (cm) - Width 1.5 -Current Size (cm) - Depth 0.5 -Total Square Cm 4.20 -Exudate Amt Medium -Exudate Type Serosanguineous -Wound Margin Thickened & Rolled Under -Granulation Amt Large (67-100%) -Granulation Quality Red -Necrosis Amt Small (1-33%) -Necrotic Tissue Type Adherent Slough -Structure Exposed N/A -Texture (Mahnaz-wound Skin Appearance) Scarring -Moisture (Mahnaz-wound Skin Appearance) No Abnormality -Color (Mahnaz-wound Skin Appearance) No Abnormality -Temperature (Mahnaz-wound Skin No Abnormality Appearance) (Pt Warm) -Tenderness on Palpation (Mahnaz-wound No Skin Appearance) -Ulcer Cleansing Soap and Water -Anesthetic Used 5% Lidocaine Gel - Nurse 2 - General Ulcer CM Notes Start: 11/15/22 10:26 Freq: Status: Active Protocol: Activity Type Activity Date Activity User E-sign Co-sign Detail Recorded Client Recorded Date Recorded By Document 11/15/22 10:40 [id number] 11/15/22 10:49 Document 11/22/22 11:08 [id number] 11/22/22 11:10 11/15/22 11/22/22 10:40 11:08 Wound Center Nurse 2 1. sacral -Time 10:41 11:08 -Correct Patient Yes Yes -Correct Side, Site, Position Yes Yes -Correct Procedure Yes Yes -Procedure Performed Yes Yes -Type of Procedure Debridement Debridement -Clinical Debridement Subcutaneous Subcutaneous -Tissue Removed Subcutaneous Subcutaneous -Post Debridement (cm) - Length 3.4 3.0 -Post Debridement (cm) - Width 2.6 2.4 -Post Debridement (cm) - Depth 0.2 0.2 -Total Square (Post) (cm) 8.84 7.20 -Area of Debridement (cm) - Length 3.4 3.0 -Area of Debridement (cm) - Width 2.6 2.4 -Total Square (Area) (cm) 8.84 7.20 -Tunneling No No -Undermining/Tunneling No No -Circular Undermining No No -Wound/Ulcer Outcome Not Healed Not Healed -Ulcer Cleansing Rinsed/ Rinsed/ Irrigated with Irrigated with Saline Saline -Foul Odor after Cleansing No No -Bioengineered Tissue No No -Bleeding Controlled with Pressure Pressure -Treatment Response Procedure Procedure Tolerated Well Tolerated Well -Offloading No No -Debridement - Subq, 1st 20sq cm Yes Yes Pain Scale: 0-10 Numeric Is Patient Pain Free? Yes Yes - Nurse 3 - General Ulcer D/C NN Start: 11/15/22 10:26 Freq: Status: Active Protocol: Activity Type Activity Date Activity User E-sign Co-sign Detail Recorded Client Recorded Date Recorded By Document 11/15/22 10:49 [id number] 11/15/22 10:50 11/15/22 10:49 Wound Care Center Nurse 3 1. sacral -Ulcer Cleansing Rinsed/ Irrigated with Saline -Foul Odor after Cleansing No -Primary Dressing Applied Silvercel -Primary Dressing Covered/Secured with Secured with Tape -Other Covering abdomen -Silvercel 1 Pain Scale: 0-10 Numeric Is Patient Pain Free? Yes - Visit Discharge Discharge Condition Stable Ambulatory Status Ambulatory, Walker Transportation Private Auto Medication Reconcilliation completed & Yes provided to patient/care provider Clinical Summary of Care Provided Yes Assessment/Plan Assessment/Plan (1) Pressure ulcer of sacral region, stage 4: CODE(S): L89.154 - Pressure ulcer of sacral region, stage 4 (2) Rheumatoid arthritis: CODE(S): M06.9 - Rheumatoid arthritis, unspecified (3) Debility: CODE(S): R53.81 - Other malaise (4) Other acute postprocedural pain: CODE(S): G89.18 - Other acute postprocedural pain (5) Vaginal yeast infection: CODE(S): B37.31 - Acute candidiasis of vulva and vagina PLAN: Plan Patient evaluated at the wound center today. Wound care - Silvercel dressing topped with fluffed gauze and then ABD to be changed 3 times per week and as needed. Stressed the importance of placing Aquaphor or Vaseline around the edge of the ulcer to help prevent excoriation. Wash ulcer and mahnaz wound with soap and water at the time of the dressing change. Will start to use chlorhexidine wash at each dressing change. Wound culture obtained 11/01/22 which was positive for Pseudomonas aeruginosa (very rare amount), Corynebacterium striatum, and Anaerobic cocci. She is allergic to the oral options to treat the Pseudomonas. I spoke with the hospital pharmacist Audra Martinez, on 11/08/22, about her wound culture and she stated that fluoroquinolones are the only option to treat pseudomonas. I discussed with the patient about referring her to ID for further evaluation and treatment but she absolutely refuses to see him because when she was hospitalized, he discussed the possibility of her needing a colostomy and that caused her stress. I would like to have her do dakin's moistened gauze daily to treat this, but the patient is not able to have daily dressing changes due to no help when home health is not present and she is not able to change the dressing herself. Will have her washing the ulcer with chlorhexidine at the time of the dressing change. Will prescribe Augmentin to treat the anaerobic culture and she will take a probiotic. I discussed this extensively with the patient. She completed the Diflucan for her positive operative fungal cultures. Labs drawn on 10/13/22: Total Bili 0.30, AST 17, ALT 20, Alk Phos 151. On 07/25/22 Alk Phos 152. Prealbumin 12.8 on 05/23/22. Encouraged increase protein supplementation. She state she is drinking Tommy 1-2 times per day in addition to her increase in dietary protein. For her vaginal yeast infection, she will take one Diflucan that she has left over from when her operative cultures were positive for yeast. She may repeat it in 3 days if she has not seen results. Follow 1 week. Call or come in sooner if develop any questions or concerns.
[2022-11-22 13:15] VITALS: BP 129/75; PULSE 80; TEMP 35.7
--- NOTE | 2022-11-29 11:26 | PCM.WC.PN ---
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 Surgery 05/22/[address] Lee for Excision necrotic left sacral pressure sore, Stage IV, with partial ostectomy for osteomyelitis. Operative tissue cultures positive for Eschericha coli, Streptococcus sanguinis, Corynebacterium amycolatum, Provotella oralis, Anaerobic cocci, and most recently Fernanda albicans and Aspirgillus fumigatus. Operative bone culture positive for Provotella disiens and Fernanda albicans. She was treated with Levaquin and Augmentin. She developed muscle pain so the Levaquin was switched to Doxycycline. The fungal cultures just recently came back and we will start her on Diflucan. Wound culture obtained 11/01/22 which was positive for Pseudomonas aeruginosa (very rare). Corynebacterium striatum and Anaerobic cocci. With her multiple drug allergies, there is not an oral antibiotic to treat the Pseudomonas, but it is rare, so will start cleansing with chlorhexidine at the time of the dressing change 3 times per week and start her on Augmentin and probiotic. Wound care is wound Silver alginate to be changed 3 times per week and as needed. She has home health to assist with the dressing changes. Today she denies fever, chills, nausea or vomiting. She states she is doing well at home. Progress of Wound: Left sacral ulcer is beefy pink. It is stable in size. No undermining is present. Mahnaz wound is stable. She states that her yeast infection resolved after treatment with diflucan. Objective Data Objective Data Vital Signs: Vital Signs Temp Pulse Resp BP 96.3 F L 80 18 129/75 H 11/22/22 13:15 11/22/22 13:15 11/15/22 10:28 11/22/22 13:15 Weight: 124 lb Body Mass Index (BMI) 20.0 Charges/Coding Procedures Integumentary [id number]: [id number] Dana subq tissue 20 sq cm/< Debridement Note Debridement Note Wound debrided: Sacral ulcer Laterality: Left Wound Grade/Stage: Stage IV Type of Debridement: Excisional debridement Anesthesia Used: 4% Lidocaine Solution and 5% Lidocaine Gel Depth: Down to and including healthy tissue and in the subcutaneous layer Percentage of wound debrided: 100 Instrument Used: 5mm curette Tissue Removed: Devitalized tissue and slough Severity: Fat Layer Exposed Amount of bleeding with debridement: Mild Bleeding Controlled with: Pressure and Compression and gauze Patient tolerated procedure: Patient tolerated procedure well Debridement Free Text: Debrided edges of the ulcer to help prevent curling in to help stimulate wound healing. Post-Debridement Measurements and Additional Note: Post-Debridement Measurements/Treatment WC - Nurse 1 - General Ulcer Assessment Start: 11/15/22 10:26 Freq: Status: Active Protocol: JUSTIN Activity Type Activity Date Activity User E-sign Co-sign Detail Recorded Client Recorded Date Recorded By Document 11/15/22 10:28 DL [id number] 11/15/22 10:34 DL Document 11/22/22 13:15 AK [id number] 11/22/22 13:17 AK 11/15/22 11/22/22 10:28 13:15 - Today's Visit Information Type of service Follow-up Visit Follow-up Visit (Physician/CHAMFERING MACHINE OPERATOR (Physician/CHAMFERING MACHINE OPERATOR ) ) Arrival Mode Ambulatory, Ambulatory, Walker Walker Transfer Assistance None Patient Identification Verified (Name & Yes No ) Patient Requires Transmission-Based No No Precautions Safety Precautions NA Height and Weight Body Mass Index (BMI) 20.0 20.0 BMI Classification Normal Normal Vital Signs Temperature (97.8 F-99.1 F) 96.9 F L 96.3 F L Temperature Source Temporal Temporal Pulse Rate (60-100) 76 80 Pulse Location Monitor Monitor Respiratory Rate (12-18) 18 Respiratory rate source Observation Blood Pressure (90/60-120/80) 115/71 129/75 H Blood Pressure Mean (mm Hg) 85 93 Source Monitor Monitor History Since Last Visit- (Skip if this is Patient's initial visit) Have you changed medications since your No No last visit? Any new allergies or adverse reactions No No Had a fall/change in ADL's that may No No increase risk of falls Signs or symptoms of abuse and/or No No neglect since last visit Have you been in the hospital since your No No last visit? Has dressing in place as prescribed Yes Yes Has compression in place as prescribed N/A N/A Has offloadiing in place as prescribed Yes N/A Experienced any changes in pain level or No No management Left Footwear Regular Shoe Right Footwear Regular Shoe Pain Scale: 0-10 Numeric Is Patient Pain Free? Yes No WC - Nurse 1 - General Ulcer Measurement Start: 11/15/22 10:26 Freq: Status: Active Protocol: Activity Type Activity Date Activity User E-sign Co-sign Detail Recorded Client Recorded Date Recorded By Document 11/15/22 10:28 DL [id number] 11/15/22 10:34 DL Document 11/22/22 13:15 AK [id number] 11/22/22 13:17 AK 11/15/22 11/22/22 10:28 13:15 Wound Center Nurse 1 1. sacral -Combined with other wound No -Current Size (cm) - Length 2.8 2.9 -Current Size (cm) - Width 1.5 1.5 -Current Size (cm) - Depth 0.5 0.2 -Total Square Cm 4.20 4.35 -Photo Taken No -Tunneling No -Undermining/Tunneling No -Circular Undermining No -Change in Wound Grade/Stage No -Exudate Amt Medium Small -Exudate Type Serosanguineous Serosanguineous -Wound Margin Thickened & Distinct, Rolled Under Outline Attached -Granulation Amt Large (67-100%) Large (67-100%) -Granulation Quality Red Pale,[place] -Slough/Fibrin No -Necrosis Amt Small (1-33%) None Present (0 %) -Necrotic Tissue Type Adherent Slough -Structure Exposed N/A N/A -Texture (Mahnaz-wound Skin Appearance) Scarring Assessed, Scarring -Moisture (Mahnaz-wound Skin Appearance) No Abnormality No Abnormality, Assessed -Color (Mahnaz-wound Skin Appearance) No Abnormality No Abnormality, Assessed -Temperature (Mahnaz-wound Skin No Abnormality No Abnormality Appearance) (Pt Warm) (Pt Warm) -Tenderness on Palpation (Mahnaz-wound No No Skin Appearance) -Ulcer Cleansing Soap and Water Rinsed/ Irrigated with Saline -Foul Odor after Cleansing No -Anesthetic Used 5% Lidocaine 5% Lidocaine Gel Gel - Nurse 2 - General Ulcer CM Notes Start: 11/15/22 10:26 Freq: Status: Active Protocol: Activity Type Activity Date Activity User E-sign Co-sign Detail Recorded Client Recorded Date Recorded By Document 11/15/22 10:40 [id number] 11/15/22 10:49 Document 11/22/22 11:08 [id number] 11/22/22 11:10 11/15/22 11/22/22 10:40 11:08 Wound Center Nurse 2 1. sacral -Time 10:41 11:08 -Correct Patient Yes Yes -Correct Side, Site, Position Yes Yes -Correct Procedure Yes Yes -Procedure Performed Yes Yes -Type of Procedure Debridement Debridement -Clinical Debridement Subcutaneous Subcutaneous -Tissue Removed Subcutaneous Subcutaneous -Post Debridement (cm) - Length 3.4 3.0 -Post Debridement (cm) - Width 2.6 2.4 -Post Debridement (cm) - Depth 0.2 0.2 -Total Square (Post) (cm) 8.84 7.20 -Area of Debridement (cm) - Length 3.4 3.0 -Area of Debridement (cm) - Width 2.6 2.4 -Total Square (Area) (cm) 8.84 7.20 -Tunneling No No -Undermining/Tunneling No No -Circular Undermining No No -Wound/Ulcer Outcome Not Healed Not Healed -Ulcer Cleansing Rinsed/ Rinsed/ Irrigated with Irrigated with Saline Saline -Foul Odor after Cleansing No No -Bioengineered Tissue No No -Bleeding Controlled with Pressure Pressure -Treatment Response Procedure Procedure Tolerated Well Tolerated Well -Offloading No No -Debridement - Subq, 1st 20sq cm Yes Yes Pain Scale: 0-10 Numeric Is Patient Pain Free? Yes Yes - Nurse 3 - General Ulcer D/C NN Start: 11/15/22 10:26 Freq: Status: Active Protocol: Activity Type Activity Date Activity User E-sign Co-sign Detail Recorded Client Recorded Date Recorded By Document 11/15/22 10:49 [id number] 11/15/22 10:50 Document 11/22/22 13:17 AK [id number] 11/22/22 13:18 AK Document 11/29/22 11:13 DL [id number] 11/29/22 11:14 DL 11/15/22 11/22/22 11/29/22 10:49 13:17 11:13 Wound Care Center Nurse 3 1. sacral -Ulcer Cleansing Rinsed/ Rinsed/ Rinsed/ Irrigated with Irrigated with Irrigated with Saline Saline Saline -Foul Odor after Cleansing No No No -Negative Pressure Wound Therapy N/A -Primary Dressing Applied Silvercel Silvercel Silvercel -Other Dressing abd -Primary Dressing Covered/Secured with Secured with Secured with Dry Gauze, Tape Tape Secured with Tape -Other Covering abdomen -Silvercel 1 1 1 Treatment Response Procedure Tolerated Well Pain Scale: 0-10 Numeric Is Patient Pain Free? Yes Yes Yes WC - Visit Discharge Discharge Condition Stable Stable Stable Ambulatory Status Ambulatory, Ambulatory Ambulatory, Walker Walker Transportation Private Auto Private Auto Private Auto Medication Reconcilliation completed & Yes Yes provided to patient/care provider Clinical Summary of Care Provided Yes Yes Assessment/Plan Assessment/Plan (1) Pressure ulcer of sacral region, stage 4: CODE(S): L89.154 - Pressure ulcer of sacral region, stage 4 (2) Rheumatoid arthritis: CODE(S): M06.9 - Rheumatoid arthritis, unspecified (3) Debility: CODE(S): R53.81 - Other malaise PLAN: Plan Patient evaluated at the wound center today. Wound care - Silvercel dressing topped with fluffed gauze and then ABD to be changed 3 times per week and as needed. Stressed the importance of placing Aquaphor or Vaseline around the edge of the ulcer to help prevent excoriation. Wash ulcer and mahnaz wound with chlorhexidine wash at each dressing change. Wound culture obtained 11/01/22 which was positive for Pseudomonas aeruginosa (very rare amount), Corynebacterium striatum, and Anaerobic cocci. She is allergic to the oral options to treat the Pseudomonas. I spoke with the hospital pharmacist Audra Martinez, on 11/08/22, about her wound culture and she stated that fluoroquinolones are the only option to treat pseudomonas. I discussed with the patient about referring her to ID for further evaluation and treatment but she absolutely refuses to see him because when she was hospitalized, he discussed the possibility of her needing a colostomy and that caused her stress. I would like to have her do dakin's moistened gauze daily to treat this, but the patient is not able to have daily dressing changes due to no help when home health is not present and she is not able to change the dressing herself. Will have her washing the ulcer with chlorhexidine at the time of the dressing change. Will prescribe Augmentin to treat the anaerobic culture and she will take a probiotic. I discussed this extensively with the patient. She completed the Diflucan for her positive operative fungal cultures. Labs drawn on 10/13/22: Total Bili 0.30, AST 17, ALT 20, Alk Phos 151. On 07/25/22 Alk Phos 152. Prealbumin 12.8 on 05/23/22. Encouraged increase protein supplementation. She state she is drinking Tommy 1-2 times per day in addition to her increase in dietary protein. For her vaginal yeast infection have resolved. Follow 1 week. Call or come in sooner if develop any questions or concerns.
[2022-11-29 11:57] VITALS: BP 136/70; PULSE 70; TEMP 35.5
[2022-12-06 10:49] VITALS: BP 154/82; PULSE 75; RESP 18; TEMP 36.1
--- NOTE | 2022-12-06 15:30 | PCM.WC.PN ---
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 Surgery 05/22/[address] Lee for Excision necrotic left sacral pressure sore, Stage IV, with partial ostectomy for osteomyelitis. Operative tissue cultures positive for Eschericha coli, Streptococcus sanguinis, Corynebacterium amycolatum, Provotella oralis, Anaerobic cocci, and most recently Fernanda albicans and Aspirgillus fumigatus. Operative bone culture positive for Provotella disiens and Fernanda albicans. She was treated with Levaquin and Augmentin. She developed muscle pain so the Levaquin was switched to Doxycycline. The fungal cultures just recently came back and we will start her on Diflucan. Wound culture obtained 11/01/22 which was positive for Pseudomonas aeruginosa (very rare). Corynebacterium striatum and Anaerobic cocci. With her multiple drug allergies, there is not an oral antibiotic to treat the Pseudomonas, but it is rare, so will start cleansing with chlorhexidine at the time of the dressing change 3 times per week and start her on Augmentin and probiotic. Wound care is wound Silver alginate to be changed 3 times per week and as needed. She has home health to assist with the dressing changes. Today she denies fever, chills, nausea or vomiting. She states she is doing well at home. Progress of Wound: Left sacral ulcer is beefy pink. It is stable in size. No undermining is present. Mahnaz wound is stable. Objective Data Objective Data Vital Signs: Vital Signs Temp Pulse Resp BP 97 F L 75 18 154/82 H 12/06/22 10:49 12/06/22 10:49 12/06/22 10:49 12/06/22 10:49 Weight: 124 lb Body Mass Index (BMI) 20.0 Charges/Coding Procedures Integumentary 111xxx-113xx: [id number] Dana subq tissue 20 sq cm/< Debridement Note Debridement Note Wound debrided: Sacral ulcer Laterality: Left Wound Grade/Stage: Stage IV Type of Debridement: Excisional debridement Anesthesia Used: 4% Lidocaine Solution and 5% Lidocaine Gel Depth: Down to and including healthy tissue and in the subcutaneous layer Percentage of wound debrided: 100 Instrument Used: 5mm curette Tissue Removed: Devitalized tissue and slough Severity: Fat Layer Exposed Amount of bleeding with debridement: Mild Bleeding Controlled with: Pressure and Compression and gauze Patient tolerated procedure: Patient tolerated procedure well Debridement Free Text: Debrided edges of the ulcer to help prevent curling in to help stimulate wound healing. Post-Debridement Measurements and Additional Note: Post-Debridement Measurements/Treatment - Nurse 1 - General Ulcer Assessment Start: 11/15/22 10:26 Freq: Status: Active Protocol: JUSTIN Activity Type Activity Date Activity User E-sign Co-sign Detail Recorded Client Recorded Date Recorded By Document 11/15/22 10:28 DL [id number] 11/15/22 10:34 DL Document 11/22/22 13:15 AK [id number] 11/22/22 13:17 AK Document 11/29/22 11:57 AK [id number] 11/29/22 12:00 AK Document 12/06/22 10:49 RB [id number] 12/06/22 10:52 RB 11/15/22 11/22/22 11/29/22 10:28 13:15 11:57 - Today's Visit Information Type of service Follow-up Visit Follow-up Visit Follow-up Visit (Physician/TUBE FILLER (Physician/TUBE FILLER (Physician/TUBE FILLER ) ) ) Arrival Mode Ambulatory, Ambulatory, Ambulatory, Walker Walker Walker Transfer Assistance None Patient Identification Verified (Name & Yes No Yes ) Patient Requires Transmission-Based No No No Precautions Safety Precautions NA NA Height and Weight Body Mass Index (BMI) 20.0 20.0 20.0 BMI Classification Normal Normal Normal Vital Signs Temperature (97.8 F-99.1 F) 96.9 F L 96.3 F L 95.9 F L Temperature Source Temporal Temporal Temporal Pulse Rate (60-100) 76 80 70 Pulse Location Monitor Monitor Monitor Respiratory Rate (12-18) 18 Respiratory rate source Observation Blood Pressure (90/60-120/80) 115/71 129/75 H 136/70 H Blood Pressure Mean (mm Hg) 85 93 92 Source Monitor Monitor Monitor Position Blood Pressure Location History Since Last Visit- (Skip if this is Patient's initial visit) Have you changed medications since your No No No last visit? Any new allergies or adverse reactions No No No Had a fall/change in ADL's that may No No No increase risk of falls Signs or symptoms of abuse and/or No No No neglect since last visit Have you been in the hospital since your No No No last visit? Has dressing in place as prescribed Yes Yes Yes Has compression in place as prescribed N/A N/A N/A Has offloadiing in place as prescribed Yes N/A N/A Experienced any changes in pain level or No No No management Left Footwear Regular Shoe Regular Shoe Right Footwear Regular Shoe Regular Shoe Pain Scale: 0-10 Numeric Is Patient Pain Free? Yes No Yes 12/06/22 10:49 WC - Today's Visit Information Type of service Follow-up Visit (Physician/TUBE FILLER ) Arrival Mode Ambulatory Transfer Assistance None Patient Identification Verified (Name & Yes ) Patient Requires Transmission-Based No Precautions Safety Precautions Height and Weight Body Mass Index (BMI) 20.0 BMI Classification Normal Vital Signs Temperature (97.8 F-99.1 F) 97 F L Temperature Source Temporal Pulse Rate (60-100) 75 Pulse Location Monitor Respiratory Rate (12-18) 18 Respiratory rate source Observation Blood Pressure (90/60-120/80) 154/82 H Blood Pressure Mean (mm Hg) 106 Source Monitor Position Semi-Fowlers Blood Pressure Location Left Arm History Since Last Visit- (Skip if this is Patient's initial visit) Have you changed medications since your No last visit? Any new allergies or adverse reactions No Had a fall/change in ADL's that may No increase risk of falls Signs or symptoms of abuse and/or No neglect since last visit Have you been in the hospital since your No last visit? Has dressing in place as prescribed Yes Has compression in place as prescribed No Has offloadiing in place as prescribed Yes Experienced any changes in pain level or No management Left Footwear Right Footwear Pain Scale: 0-10 Numeric Is Patient Pain Free? Yes WC - Nurse 1 - General Ulcer Measurement Start: 11/15/22 10:26 Freq: Status: Active Protocol: Activity Type Activity Date Activity User E-sign Co-sign Detail Recorded Client Recorded Date Recorded By Document 11/15/22 10:28 DL [id number] 11/15/22 10:34 DL Document 11/22/22 13:15 AK [id number] 11/22/22 13:17 AK Document 11/29/22 11:57 AK [id number] 11/29/22 12:00 AK Document 12/06/22 10:49 RB [id number] 12/06/22 10:52 RB 11/15/22 11/22/22 11/29/22 10:28 13:15 11:57 Wound Center Nurse 1 1. sacral -Combined with other wound No No -Current Size (cm) - Length 2.8 2.9 3.2 -Current Size (cm) - Width 1.5 1.5 1.4 -Current Size (cm) - Depth 0.5 0.2 0.2 -Total Square Cm 4.20 4.35 4.48 -Photo Taken No Yes -Tunneling No No -Undermining/Tunneling No No -Circular Undermining No No -Change in Wound Grade/Stage No No -Exudate Amt Medium Small Medium -Exudate Type Serosanguineous Serosanguineous Serosanguineous -Wound Margin Thickened & Distinct, Distinct, Rolled Under Outline Outline Attached Attached -Granulation Amt Large (67-100%) Large (67-100%) Large (67-100%) -Granulation Quality Red Pale,[place] -Slough/Fibrin No Yes -Necrosis Amt Small (1-33%) None Present (0 Small (1-33%) %) -Necrotic Tissue Type Adherent Slough Adherent Slough -Structure Exposed N/A N/A -Texture (Mahnaz-wound Skin Appearance) Scarring Assessed, No Abnormality, Scarring Assessed -Moisture (Mahnaz-wound Skin Appearance) No Abnormality No Abnormality, No Abnormality, Assessed Assessed -Color (Mahnaz-wound Skin Appearance) No Abnormality No Abnormality, No Abnormality, Assessed Assessed -Temperature (Mahnaz-wound Skin No Abnormality No Abnormality No Abnormality Appearance) (Pt Warm) (Pt Warm) (Pt Warm) -Tenderness on Palpation (Mahnaz-wound No No No Skin Appearance) -Ulcer Cleansing Soap and Water Rinsed/ Rinsed/ Irrigated with Irrigated with Saline Saline -Foul Odor after Cleansing No No -Anesthetic Used 5% Lidocaine 5% Lidocaine 5% Lidocaine Gel Gel Gel 12/06/22 10:49 Wound Center Nurse 1 1. sacral -Combined with other wound No -Current Size (cm) - Length 2.9 -Current Size (cm) - Width 1.6 -Current Size (cm) - Depth 0.2 -Total Square Cm 4.64 -Photo Taken Yes -Tunneling No -Undermining/Tunneling No -Circular Undermining No -Change in Wound Grade/Stage -Exudate Amt Medium -Exudate Type Serosanguineous -Wound Margin Thickened & Rolled Under -Granulation Amt Medium (34-66%) -Granulation Quality [place],Red -Slough/Fibrin Yes -Necrosis Amt Small (1-33%) -Necrotic Tissue Type Adherent Slough -Structure Exposed N/A -Texture (Mahnaz-wound Skin Appearance) Assessed -Moisture (Mahnaz-wound Skin Appearance) Assessed -Color (Mahnaz-wound Skin Appearance) Assessed -Temperature (Mahnaz-wound Skin No Abnormality Appearance) (Pt Warm) -Tenderness on Palpation (Mahnaz-wound No Skin Appearance) -Ulcer Cleansing Wound Cleanser -Foul Odor after Cleansing No -Anesthetic Used 5% Lidocaine Gel WC - Nurse 2 - General Ulcer CM Notes Start: 11/15/22 10:26 Freq: Status: Active Protocol: Activity Type Activity Date Activity User E-sign Co-sign Detail Recorded Client Recorded Date Recorded By Document 11/15/22 10:40 [id number] 11/15/22 10:49 Document 11/22/22 11:08 [id number] 11/22/22 11:10 Document 11/29/22 14:55 PL [id number] 11/29/22 14:56 PL Document 12/06/22 10:59 [id number] 12/06/22 11:02 11/15/22 11/22/22 11/29/22 10:40 11:08 14:55 Wound Center Nurse 2 1. sacral -Time 10:41 11:08 10:56 -Correct Patient Yes Yes Yes -Correct Side, Site, Position Yes Yes Yes -Correct Procedure Yes Yes Yes -Procedure Performed Yes Yes Yes -Type of Procedure Debridement Debridement Debridement -Clinical Debridement Subcutaneous Subcutaneous Subcutaneous -Tissue Removed Subcutaneous Subcutaneous Subcutaneous -Post Debridement (cm) - Length 3.4 3.0 3.5 -Post Debridement (cm) - Width 2.6 2.4 1.9 -Post Debridement (cm) - Depth 0.2 0.2 0.2 -Total Square (Post) (cm) 8.84 7.20 6.65 -Area of Debridement (cm) - Length 3.4 3.0 3.5 -Area of Debridement (cm) - Width 2.6 2.4 1.9 -Total Square (Area) (cm) 8.84 7.20 6.65 -Tunneling No No No -Undermining/Tunneling No No No -Circular Undermining No No No -Wound/Ulcer Outcome Not Healed Not Healed Not Healed -Ulcer Cleansing Rinsed/ Rinsed/ Rinsed/ Irrigated with Irrigated with Irrigated with Saline Saline Saline -Foul Odor after Cleansing No No No -Bioengineered Tissue No No No -Bleeding Controlled with Pressure Pressure Pressure -Treatment Response Procedure Procedure Procedure Tolerated Well Tolerated Well Tolerated Well -Offloading No No -Debridement - Subq, 1st 20sq cm Yes Yes Yes Pain Scale: 0-10 Numeric Is Patient Pain Free? Yes Yes Yes 12/06/22 10:59 Wound Center Nurse 2 1. sacral -Time 11:00 -Correct Patient Yes -Correct Side, Site, Position Yes -Correct Procedure Yes -Procedure Performed Yes -Type of Procedure Debridement -Clinical Debridement Subcutaneous -Tissue Removed Subcutaneous -Post Debridement (cm) - Length 4.0 -Post Debridement (cm) - Width 2.5 -Post Debridement (cm) - Depth 0.2 -Total Square (Post) (cm) 10.00 -Area of Debridement (cm) - Length 4.0 -Area of Debridement (cm) - Width 2.5 -Total Square (Area) (cm) 10.00 -Tunneling No -Undermining/Tunneling No -Circular Undermining No -Wound/Ulcer Outcome Not Healed -Ulcer Cleansing Rinsed/ Irrigated with Saline -Foul Odor after Cleansing No -Bioengineered Tissue No -Bleeding Controlled with Pressure -Treatment Response Procedure Tolerated Well -Offloading No -Debridement - Subq, 1st 20sq cm Yes Pain Scale: 0-10 Numeric Is Patient Pain Free? Yes WC - Nurse 3 - General Ulcer D/C NN Start: 11/15/22 10:26 Freq: Status: Active Protocol: Activity Type Activity Date Activity User E-sign Co-sign Detail Recorded Client Recorded Date Recorded By Document 11/15/22 10:49 [id number] 11/15/22 10:50 Document 11/22/22 13:17 AK [id number] 11/22/22 13:18 AK Document 11/29/22 11:13 DL [id number] 11/29/22 11:14 DL Document 12/06/22 11:44 DL [id number] 12/06/22 11:45 DL 11/15/22 11/22/22 11/29/22 10:49 13:17 11:13 Wound Care Center Nurse 3 1. sacral -Ulcer Cleansing Rinsed/ Rinsed/ Rinsed/ Irrigated with Irrigated with Irrigated with Saline Saline Saline -Foul Odor after Cleansing No No No -Negative Pressure Wound Therapy N/A -Primary Dressing Applied Silvercel Silvercel Silvercel -Other Dressing abd -Primary Dressing Covered/Secured with Secured with Secured with Dry Gauze, Tape Tape Secured with Tape -Other Covering abdomen -Silvercel 1 1 1 Treatment Response Procedure Tolerated Well Pain Scale: 0-10 Numeric Is Patient Pain Free? Yes Yes Yes WC - Visit Discharge Discharge Condition Stable Stable Stable Ambulatory Status Ambulatory, Ambulatory Ambulatory, Walker Walker Transportation Private Auto Private Auto Private Auto Medication Reconcilliation completed & Yes Yes provided to patient/care provider Clinical Summary of Care Provided Yes Yes 12/06/22 11:44 Wound Care Center Nurse 3 1. sacral -Ulcer Cleansing Rinsed/ Irrigated with Saline -Foul Odor after Cleansing No -Negative Pressure Wound Therapy -Primary Dressing Applied Silvercel -Other Dressing -Primary Dressing Covered/Secured with Dry Gauze & Roll Gauze, Secured with Tape -Other Covering -Silvercel 1 Treatment Response Procedure Tolerated Well Pain Scale: 0-10 Numeric Is Patient Pain Free? Yes WC - Visit Discharge Discharge Condition Stable Ambulatory Status Ambulatory, Walker Transportation Private Auto Medication Reconcilliation completed & provided to patient/care provider Clinical Summary of Care Provided Assessment/Plan Assessment/Plan (1) Pressure ulcer of sacral region, stage 4: CODE(S): L89.154 - Pressure ulcer of sacral region, stage 4 (2) Rheumatoid arthritis: CODE(S): M06.9 - Rheumatoid arthritis, unspecified (3) Debility: CODE(S): R53.81 - Other malaise PLAN: Plan Patient evaluated at the wound center today. Wound care - Silvercel dressing topped with fluffed gauze and then ABD to be changed 3 times per week and as needed. Ideally she would be able to learn how to change her dressing so she could have it changed daily. I believe this would help with her wound healing. Stressed the importance of placing Aquaphor or Vaseline around the edge of the ulcer to help prevent excoriation. Wash ulcer and mahnaz wound with chlorhexidine wash at each dressing change. Wound culture obtained 11/01/22 which was positive for Pseudomonas aeruginosa (very rare amount), Corynebacterium striatum, and Anaerobic cocci. She is allergic to the oral options to treat the Pseudomonas. I spoke with the hospital pharmacist Audra Martinez, on 11/08/22, about her wound culture and she stated that fluoroquinolones are the only option to treat pseudomonas. I discussed with the patient about referring her to ID for further evaluation and treatment but she absolutely refuses to see him because when she was hospitalized, he discussed the possibility of her needing a colostomy and that caused her stress. I would like to have her do dakin's moistened gauze daily to treat this, but the patient is not able to have daily dressing changes due to no help when home health is not present and she is not able to change the dressing herself. Will have her washing the ulcer with chlorhexidine at the time of the dressing change. Will prescribe Augmentin to treat the anaerobic culture and she will take a probiotic. I discussed this extensively with the patient. She completed the Diflucan for her positive operative fungal cultures. Labs drawn on 10/13/22: Total Bili 0.30, AST 17, ALT 20, Alk Phos 151. On 07/25/22 Alk Phos 152. Prealbumin 12.8 on 05/23/22. Encouraged increase protein supplementation. She state she is drinking Tommy 1-2 times per day in addition to her increase in dietary protein. Follow 1 week. Call or come in sooner if develop any questions or concerns.
== END 2022-12-08 23:59 | disposition home or self-care (01) ==
LOC: WC 10:15
PROVIDERS: PCP Family Medicine; Visit Provider Nurse Practitioner Family
DX: L89.154 Pressure ulcer of sacral region, stage 4 (principal); M06.9 Rheumatoid arthritis, unspecified; B37.31 Acute candidiasis of vulva and vagina; R53.81 Other malaise; G89.29 Other chronic pain; Z79.82 Long term (current) use of aspirin; Z79.899 Other long term (current) drug therapy; Z87.39 Personal history of other diseases of the musculoskeletal system and connective tissue
CPT/HCPCS: 11042

== ENCOUNTER 2023-01-03 10:15 | Outpatient (RCR) | payer MEDICARE, OTHER, SELFPAY ==
[2022-12-09 00:44] VITALS: BP 154/82; PULSE 75; RESP 18; TEMP 36.1
[2022-12-13 10:33] VITALS: BP 156/89; PULSE 75; RESP 16; TEMP 36.4
--- NOTE | 2022-12-13 11:06 | PCM.WC.PN ---
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 Surgery 05/22/[address] Lee for Excision necrotic left sacral pressure sore, Stage IV, with partial ostectomy for osteomyelitis. Operative tissue cultures positive for Eschericha coli, Streptococcus sanguinis, Corynebacterium amycolatum, Provotella oralis, Anaerobic cocci, and most recently Fernanda albicans and Aspirgillus fumigatus. Operative bone culture positive for Provotella disiens and Fernanda albicans. She was treated with Levaquin and Augmentin. She developed muscle pain so the Levaquin was switched to Doxycycline. The fungal cultures just recently came back and we will start her on Diflucan. Wound culture obtained 11/01/22 which was positive for Pseudomonas aeruginosa (very rare). Corynebacterium striatum and Anaerobic cocci. With her multiple drug allergies, there is not an oral antibiotic to treat the Pseudomonas, but it is rare, so will start cleansing with chlorhexidine at the time of the dressing change 3 times per week and start her on Augmentin and probiotic. Wound care is wound Silver alginate to be changed 3 times per week and as needed. She has home health to assist with the dressing changes. Today she denies fever, chills, nausea or vomiting. She states she is doing well at home. Progress of Wound: Left sacral ulcer is beefy pink. It is smaller in size this week. Mahnaz wound is stable. Objective Data Objective Data Vital Signs: Vital Signs Temp Pulse Resp BP O2 Del Method 97.5 F L 75 16 156/89 H Room Air 12/13/22 10:33 12/13/22 10:33 12/13/22 10:33 12/13/22 10:33 12/13/22 10:33 Oxygen Delivery Method Room Air Weight: 124 lb Body Mass Index (BMI) 20.0 Charges/Coding Procedures Integumentary 111xxx-113xx: 36690 Dana subq tissue 20 sq cm/< Debridement Note Debridement Note Wound debrided: Sacral ulcer Laterality: Left Wound Grade/Stage: Stage IV Type of Debridement: Excisional debridement Anesthesia Used: 4% Lidocaine Solution and 5% Lidocaine Gel Depth: Down to and including healthy tissue and in the subcutaneous layer Percentage of wound debrided: 100 Instrument Used: 5mm curette Tissue Removed: Devitalized tissue and slough Severity: Fat Layer Exposed Amount of bleeding with debridement: Mild Bleeding Controlled with: Pressure and Compression and gauze Patient tolerated procedure: Patient tolerated procedure well Debridement Free Text: Debrided edges of the ulcer to help prevent curling in to help stimulate wound healing. Post-Debridement Measurements and Additional Note: Post-Debridement Measurements/Treatment - Nurse 1 - General Ulcer Assessment Start: 12/13/22 10:33 Freq: Status: Active Protocol: [email or web address] Activity Type Activity Date Activity User E-sign Co-sign Detail Recorded Client Recorded Date Recorded By Document 12/13/22 10:33 [id number] 12/13/22 10:46 12/13/22 10:33 - Today's Visit Information Type of service Follow-up Visit (Physician/TEMPORARY DATA ENTRY CLERK ) Arrival Mode Walker Patient Identification Verified (Name & Yes ) Safety Precautions NA Height and Weight Body Mass Index (BMI) 20.0 BMI Classification Normal Vital Signs Temperature (97.8 F-99.1 F) 97.5 F L Temperature Source Temporal Pulse Rate (60-100) 75 Pulse Location Monitor Respiratory Rate (12-18) 16 Respiratory rate source Observation Oxygen Delivery Method Room Air Blood Pressure (90/60-120/80) 156/89 H Blood Pressure Mean (mm Hg) 111 Source Monitor Position Sitting Blood Pressure Location Left Forearm History Since Last Visit- (Skip if this is Patient's initial visit) Have you changed medications since your No last visit? Any new allergies or adverse reactions No Had a fall/change in ADL's that may No increase risk of falls Signs or symptoms of abuse and/or No neglect since last visit Have you been in the hospital since your No last visit? Has dressing in place as prescribed Yes Has compression in place as prescribed N/A Has offloadiing in place as prescribed N/A Experienced any changes in pain level or No management Left Footwear Regular Shoe Right Footwear Regular Shoe Pain Scale: 0-10 Numeric Is Patient Pain Free? Yes - Nurse 1 - General Ulcer Measurement Start: 12/13/22 10:33 Freq: Status: Active Protocol: Activity Type Activity Date Activity User E-sign Co-sign Detail Recorded Client Recorded Date Recorded By Document 12/13/22 10:33 ELAINE [id number] 12/13/22 10:46 ELAINE 12/13/22 10:33 Wound Center Nurse 1 1. sacral -Combined with (Name of Wound-Exactly 3.2 as it is documented) -Current Size (cm) - Length 1.5 -Current Size (cm) - Width 0.2 -Total Square Cm 0.30 -Photo Taken No -Epithelialization Medium 34-66% -Tunneling No -Undermining/Tunneling No -Circular Undermining No -Exudate Amt Small -Exudate Type Serosanguineous -Wound Margin Distinct, Outline Attached -Granulation Amt Medium (34-66%) -Granulation Quality Red -Slough/Fibrin No -Texture (Mahnaz-wound Skin Appearance) Assessed -Moisture (Mahnaz-wound Skin Appearance) Assessed -Color (Mahnaz-wound Skin Appearance) Assessed -Temperature (Mahnaz-wound Skin No Abnormality Appearance) (Pt Warm) -Ulcer Cleansing Rinsed/ Irrigated with Saline -Foul Odor after Cleansing No -Anesthetic Used 5% Lidocaine Gel Lower Limb Edema Present NA - Nurse 2 - General Ulcer CM Notes Start: 12/13/22 10:33 Freq: Status: Active Protocol: Activity Type Activity Date Activity User E-sign Co-sign Detail Recorded Client Recorded Date Recorded By Document 12/13/22 10:56 [id number] 12/13/22 10:57 HUMERA 12/13/22 10:56 Wound Center Nurse 2 1. sacral -Time 10:56 -Correct Patient Yes -Correct Side, Site, Position Yes -Correct Procedure Yes -Procedure Performed Yes -Type of Procedure Debridement -Clinical Debridement Subcutaneous -Tissue Removed Subcutaneous -Post Debridement (cm) - Length 3.5 -Post Debridement (cm) - Width 1.7 -Post Debridement (cm) - Depth 0.2 -Total Square (Post) (cm) 5.95 -Area of Debridement (cm) - Length 3.5 -Area of Debridement (cm) - Width 1.7 -Total Square (Area) (cm) 5.95 -Tunneling No -Undermining/Tunneling No -Circular Undermining No -Wound/Ulcer Outcome Not Healed -Ulcer Cleansing Rinsed/ Irrigated with Saline -Foul Odor after Cleansing No -Bioengineered Tissue No -Bleeding Controlled with Pressure -Treatment Response Procedure Tolerated Well -Offloading No -Debridement - Subq, 1st 20sq cm Yes Pain Scale: 0-10 Numeric Is Patient Pain Free? Yes - Nurse 3 - General Ulcer D/C NN Start: 12/13/22 10:33 Freq: Status: Active Protocol: Activity Type Activity Date Activity User E-sign Co-sign Detail Recorded Client Recorded Date Recorded By Document 12/13/22 10:57 [id number] 12/13/22 10:59 12/13/22 10:57 Wound Care Center Nurse 3 1. sacral -Ulcer Cleansing Rinsed/ Irrigated with Saline -Foul Odor after Cleansing No -Primary Dressing Applied Silvercel -Primary Dressing Covered/Secured with Dry Gauze, Secured with Tape -Silvercel 1 Pain Scale: 0-10 Numeric Is Patient Pain Free? Yes WC - Visit Discharge Discharge Condition Stable Ambulatory Status Ambulatory, Walker Transportation Private Auto Medication Reconcilliation completed & Yes provided to patient/care provider Clinical Summary of Care Provided Yes Assessment/Plan Assessment/Plan (1) Pressure ulcer of sacral region, stage 4: CODE(S): L89.154 - Pressure ulcer of sacral region, stage 4 (2) Rheumatoid arthritis: CODE(S): M06.9 - Rheumatoid arthritis, unspecified (3) Debility: CODE(S): R53.81 - Other malaise PLAN: Plan Patient evaluated at the wound center today. Wound care - Silvercel dressing topped with fluffed gauze and then ABD to be changed 3 times per week and as needed. Ideally she would be able to learn how to change her dressing so she could have it changed daily. I believe this would help with her wound healing. Stressed the importance of placing Aquaphor or Vaseline around the edge of the ulcer to help prevent excoriation. Wash ulcer and mahnaz wound with chlorhexidine wash at each dressing change. Wound culture obtained 11/01/22 which was positive for Pseudomonas aeruginosa (very rare amount), Corynebacterium striatum, and Anaerobic cocci. She is allergic to the oral options to treat the Pseudomonas. I spoke with the hospital pharmacist Audra Martinez, on 11/08/22, about her wound culture and she stated that fluoroquinolones are the only option to treat pseudomonas. I discussed with the patient about referring her to ID for further evaluation and treatment but she absolutely refuses to see him because when she was hospitalized, he discussed the possibility of her needing a colostomy and that caused her stress. I would like to have her do dakin's moistened gauze daily to treat this, but the patient is not able to have daily dressing changes due to no help when home health is not present and she is not able to change the dressing herself. Will have her washing the ulcer with chlorhexidine at the time of the dressing change. Will prescribe Augmentin to treat the anaerobic culture and she will take a probiotic. I discussed this extensively with the patient. She completed the Diflucan for her positive operative fungal cultures. Labs drawn on 10/13/22: Total Bili 0.30, AST 17, ALT 20, Alk Phos 151. On 07/25/22 Alk Phos 152. Prealbumin 12.8 on 05/23/22. Encouraged increase protein supplementation. She state she is drinking Tommy 1-2 times per day in addition to her increase in dietary protein. Follow 2 weeks. Call or come in sooner if develop any questions or concerns.
[2022-12-27 10:17] VITALS: BP 139/78; PULSE 78; RESP 18; TEMP 36.3
--- NOTE | 2022-12-27 11:41 | PCM.WC.PN ---
History of Present Illness Date of Service: 12/27/22 Chief Complaint: Left sacral ulcer History of Wound: 72 year old female with below past medical history suffered fall from second story, hospitalized for multi trauma, underwent left tibia intramedullary nail fixation, right hip anterograde intramedullary nail, complicated by encephalopathy from urinary tract infection, stage 4 left sacral pressure ulcer with chronic osteomyelitis, admitted to TCU on 04/17/22 with debility, there for rehabilitation, strengthening, prior to discharge home alone on 06/25/22 with home health/PT/OT. Surgery 05/22/[address] Lee for Excision necrotic left sacral pressure sore, Stage IV, with partial ostectomy for osteomyelitis. Operative tissue cultures positive for Eschericha coli, Streptococcus sanguinis, Corynebacterium amycolatum, Provotella oralis, Anaerobic cocci, and most recently Fernanda albicans and Aspirgillus fumigatus. Operative bone culture positive for Provotella disiens and Fernanda albicans. She was treated with Levaquin and Augmentin. She developed muscle pain so the Levaquin was switched to Doxycycline. The fungal cultures just recently came back and we will start her on Diflucan. Wound culture obtained 11/01/22 which was positive for Pseudomonas aeruginosa (very rare). Corynebacterium striatum and Anaerobic cocci. With her multiple drug allergies, there is not an oral antibiotic to treat the Pseudomonas, but it is rare, so will start cleansing with chlorhexidine at the time of the dressing change 3 times per week and start her on Augmentin and probiotic. Wound care is wound Silver alginate to be changed 3 times per week and as needed. She has home health to assist with the dressing changes. Today she denies fever, chills, nausea or vomiting. She states she is doing well at home. Progress of Wound: Left sacral ulcer is beefy pink. It is stable in size. Mahnaz wound is stable. A wound culture was obtained today since there is no improvement in her ulcer.? A positive culture will necessitate antibiotic therapy. Objective Data Objective Data Vital Signs: Vital Signs Temp Pulse Resp BP O2 Del Method 97.4 F L 78 18 139/78 H Room Air 12/27/22 10:17 12/27/22 10:17 12/27/22 10:17 12/27/22 10:17 12/13/22 10:33 Oxygen Delivery Method Room Air Weight: 124 lb Body Mass Index (BMI) 20.0 Charges/Coding Procedures Integumentary 111xxx-113xx: 75119 Dana subq tissue 20 sq cm/< Debridement Note Debridement Note Wound debrided: Sacral ulcer Laterality: Left Wound Grade/Stage: Stage IV Type of Debridement: Excisional debridement Anesthesia Used: 4% Lidocaine Solution and 5% Lidocaine Gel Depth: Down to and including healthy tissue and in the subcutaneous layer Percentage of wound debrided: 100 Instrument Used: 5mm curette Tissue Removed: Devitalized tissue and slough Severity: Fat Layer Exposed Amount of bleeding with debridement: Mild Bleeding Controlled with: Pressure and Compression and gauze Patient tolerated procedure: Patient tolerated procedure well Debridement Free Text: Debrided edges of the ulcer to help prevent curling in to help stimulate wound healing. Post-Debridement Measurements and Additional Note: Post-Debridement Measurements/Treatment - Nurse 1 - General Ulcer Assessment Start: 12/13/22 10:33 Freq: Status: Active Protocol: JUSTIN Activity Type Activity Date Activity User E-sign Co-sign Detail Recorded Client Recorded Date Recorded By Document 12/13/22 10:33 KW [id number] 12/13/22 10:46 KW Document 12/27/22 10:17 DL [id number] 12/27/22 10:22 DL 12/13/22 12/27/22 10:33 10:17 - Today's Visit Information Type of service Follow-up Visit Follow-up Visit (Physician/OVEN BAKER (Physician/OVEN BAKER ) ) Arrival Mode Walker Ambulatory, Walker Transfer Assistance None Patient Identification Verified (Name & Yes Yes ) Patient Requires Transmission-Based No Precautions Safety Precautions NA Height and Weight Body Mass Index (BMI) 20.0 20.0 BMI Classification Normal Normal Vital Signs Temperature (97.8 F-99.1 F) 97.5 F L 97.4 F L Temperature Source Temporal Temporal Pulse Rate (60-100) 75 78 Pulse Location Monitor Monitor Respiratory Rate (12-18) 16 18 Respiratory rate source Observation Observation Oxygen Delivery Method Room Air Blood Pressure (90/60-120/80) 156/89 H 139/78 H Blood Pressure Mean (mm Hg) 111 98 Source Monitor Monitor Position Sitting Blood Pressure Location Left Forearm History Since Last Visit- (Skip if this is Patient's initial visit) Have you changed medications since your No No last visit? Any new allergies or adverse reactions No No Had a fall/change in ADL's that may No No increase risk of falls Signs or symptoms of abuse and/or No No neglect since last visit Have you been in the hospital since your No No last visit? Has dressing in place as prescribed Yes Yes Has compression in place as prescribed N/A Has offloadiing in place as prescribed N/A Yes Experienced any changes in pain level or No No management Left Footwear Regular Shoe Right Footwear Regular Shoe Pain Scale: 0-10 Numeric Is Patient Pain Free? Yes Yes WC - Nurse 1 - General Ulcer Measurement Start: 12/13/22 10:33 Freq: Status: Active Protocol: Activity Type Activity Date Activity User E-sign Co-sign Detail Recorded Client Recorded Date Recorded By Document 12/13/22 10:33 KW [id number] 12/13/22 10:46 KW Document 12/27/22 10:17 DL [id number] 12/27/22 10:22 DL 12/13/22 12/27/22 10:33 10:17 Wound Center Nurse 1 1. sacral -Combined with (Name of Wound-Exactly 3.2 as it is documented) -Current Size (cm) - Length 1.5 2 -Current Size (cm) - Width 0.2 0.8 -Current Size (cm) - Depth 0.2 -Total Square Cm 0.30 1.6 -Photo Taken No -Epithelialization Medium 34-66% -Tunneling No -Undermining/Tunneling No -Circular Undermining No -Exudate Amt Small Small -Exudate Type Serosanguineous Serosanguineous -Wound Margin Distinct, Thickened Outline Attached -Granulation Amt Medium (34-66%) Large (67-100%) -Granulation Quality Red [place] -Slough/Fibrin No -Necrosis Amt Small (1-33%) -Necrotic Tissue Type Adherent Slough -Structure Exposed N/A -Texture (Mahnaz-wound Skin Appearance) Assessed Scarring -Moisture (Mahnaz-wound Skin Appearance) Assessed No Abnormality -Color (Mahnaz-wound Skin Appearance) Assessed No Abnormality -Temperature (Mahnaz-wound Skin No Abnormality No Abnormality Appearance) (Pt Warm) (Pt Warm) -Ulcer Cleansing Rinsed/ Soap and Water Irrigated with Saline -Foul Odor after Cleansing No No -Anesthetic Used 5% Lidocaine 5% Lidocaine Gel Gel Lower Limb Edema Present NA - Nurse 2 - General Ulcer CM Notes Start: 12/13/22 10:33 Freq: Status: Active Protocol: Activity Type Activity Date Activity User E-sign Co-sign Detail Recorded Client Recorded Date Recorded By Document 12/13/22 10:56 [id number] 12/13/22 10:57 Document 12/27/22 10:55 [id number] 12/27/22 10:58 12/13/22 12/27/22 10:56 10:55 Wound Center Nurse 2 1. sacral -Time 10:56 10:55 -Correct Patient Yes Yes -Correct Side, Site, Position Yes Yes -Correct Procedure Yes Yes -Procedure Performed Yes Yes -Type of Procedure Debridement Debridement -Clinical Debridement Subcutaneous Subcutaneous -Tissue Removed Subcutaneous Subcutaneous -Post Debridement (cm) - Length 3.5 3.3 -Post Debridement (cm) - Width 1.7 1.7 -Post Debridement (cm) - Depth 0.2 0.2 -Total Square (Post) (cm) 5.95 5.61 -Area of Debridement (cm) - Length 3.5 3.3 -Area of Debridement (cm) - Width 1.7 1.7 -Total Square (Area) (cm) 5.95 5.61 -Tunneling No No -Undermining/Tunneling No No -Circular Undermining No No -Wound/Ulcer Outcome Not Healed Not Healed -Ulcer Cleansing Rinsed/ Rinsed/ Irrigated with Irrigated with Saline Saline -Foul Odor after Cleansing No No -Bioengineered Tissue No No -Bleeding Controlled with Pressure Pressure -Treatment Response Procedure Procedure Tolerated Well Tolerated Well -Offloading No No -Debridement - Subq, 1st 20sq cm Yes Yes Pain Scale: 0-10 Numeric Is Patient Pain Free? Yes Yes - Nurse 3 - General Ulcer D/C NN Start: 12/13/22 10:33 Freq: Status: Active Protocol: Activity Type Activity Date Activity User E-sign Co-sign Detail Recorded Client Recorded Date Recorded By Document 12/13/22 10:57 [id number] 12/13/22 10:59 Document 12/27/22 11:11 PL [id number] 12/27/22 11:12 PL 12/13/22 12/27/22 10:57 11:11 Wound Care Center Nurse 3 1. sacral -Ulcer Cleansing Rinsed/ Rinsed/ Irrigated with Irrigated with Saline Saline -Foul Odor after Cleansing No No -Primary Dressing Applied Silvercel Silvercel -Other Dressing ABD -Primary Dressing Covered/Secured with Dry Gauze, Secured with Secured with Tape Tape -Silvercel 1 1 Pain Scale: 0-10 Numeric Is Patient Pain Free? Yes Yes WC - Visit Discharge Discharge Condition Stable Stable Ambulatory Status Ambulatory, Ambulatory Walker Transportation Private Auto Private Auto Medication Reconcilliation completed & Yes provided to patient/care provider Clinical Summary of Care Provided Yes Assessment/Plan Assessment/Plan (1) Pressure ulcer of sacral region, stage 4: CODE(S): L89.154 - Pressure ulcer of sacral region, stage 4 (2) Rheumatoid arthritis: CODE(S): M06.9 - Rheumatoid arthritis, unspecified (3) Debility: CODE(S): R53.81 - Other malaise PLAN: Plan Patient evaluated at the wound center today. Wound care - Silvercel dressing topped with fluffed gauze and then ABD to be changed 3 times per week and as needed. Ideally she would be able to learn how to change her dressing so she could have it changed daily. I believe this would help with her wound healing. Stressed the importance of placing Aquaphor or Vaseline around the edge of the ulcer to help prevent excoriation. Wash ulcer and mahnaz wound with chlorhexidine wash at each dressing change. A wound culture was obtained today.? A positive culture will necessitate antibiotic therapy. Wound culture obtained 11/01/22 which was positive for Pseudomonas aeruginosa (very rare amount), Corynebacterium striatum, and Anaerobic cocci. She is allergic to the oral options to treat the Pseudomonas. I spoke with the hospital pharmacist Audra Martinez, on 11/08/22, about her wound culture and she stated that fluoroquinolones are the only option to treat pseudomonas. I discussed with the patient about referring her to ID for further evaluation and treatment but she absolutely refuses to see him because when she was hospitalized, he discussed the possibility of her needing a colostomy and that caused her stress. I would like to have her do dakin's moistened gauze daily to treat this, but the patient is not able to have daily dressing changes due to no help when home health is not present and she is not able to change the dressing herself. Will have her washing the ulcer with chlorhexidine at the time of the dressing change. Will prescribe Augmentin to treat the anaerobic culture and she will take a probiotic. I discussed this extensively with the patient. She completed the Diflucan for her positive operative fungal cultures. Labs drawn on 10/13/22: Total Bili 0.30, AST 17, ALT 20, Alk Phos 151. On 07/25/22 Alk Phos 152. Prealbumin 12.8 on 05/23/22. Encouraged increase protein supplementation. She state she is drinking Tommy 1-2 times per day in addition to her increase in dietary protein. Follow 2 weeks. Call or come in sooner if develop any questions or concerns.
[2023-01-03 10:57] VITALS: BP 147/70; PULSE 79; RESP 20; TEMP 35.9
--- NOTE | 2023-01-03 11:19 | PCM.WC.PN ---
History of Present Illness Date of Service: 01/03/23 Chief Complaint: Left sacral ulcer History of Wound: 72 year old female with below past medical history suffered fall from second story, hospitalized for multi trauma, underwent left tibia intramedullary nail fixation, right hip anterograde intramedullary nail, complicated by encephalopathy from urinary tract infection, stage 4 left sacral pressure ulcer with chronic osteomyelitis, admitted to TCU on 04/17/22 with debility, there for rehabilitation, strengthening, prior to discharge home alone on 06/25/22 with home health/PT/OT. Surgery 05/22/[address] Lee for Excision necrotic left sacral pressure sore, Stage IV, with partial ostectomy for osteomyelitis. Operative tissue cultures positive for Eschericha coli, Streptococcus sanguinis, Corynebacterium amycolatum, Provotella oralis, Anaerobic cocci, and most recently Fernanda albicans and Aspirgillus fumigatus. Operative bone culture positive for Provotella disiens and Fernanda albicans. She was treated with Levaquin and Augmentin. She developed muscle pain so the Levaquin was switched to Doxycycline. The fungal cultures just recently came back and we will start her on Diflucan. Wound culture obtained 11/01/22 which was positive for Pseudomonas aeruginosa (very rare). Corynebacterium striatum and Anaerobic cocci. With her multiple drug allergies, there is not an oral antibiotic to treat the Pseudomonas, but it is rare, so will start cleansing with chlorhexidine at the time of the dressing change 3 times per week and start her on Augmentin and probiotic. Wound culture from 12/27/22 positive for Corynebacterium striatum which is a skin contaminant. Wound care is wound Silver alginate to be changed 3 times per week and as needed. She has home health to assist with the dressing changes. Today she denies fever, chills, nausea or vomiting. She states she is doing well at home. Progress of Wound: Left sacral ulcer is beefy pink. It is stable in size. Mahnaz wound is stable. Objective Data Objective Data Vital Signs: Vital Signs Temp Pulse Resp BP O2 Del Method 96.7 F L 79 20 H 147/70 H Room Air 01/03/23 10:57 01/03/23 10:57 01/03/23 10:57 01/03/23 10:57 12/13/22 10:33 Oxygen Delivery Method Room Air Weight: 124 lb Body Mass Index (BMI) 20.0 Lab / Micro Data Micro: Microbiology 12/27/22 10:58 Wound - Sacral Gram Stain - Final 12/27/22 10:58 Wound - Sacral Wound Culture - Final Corynebacterium striatum 12/27/22 10:58 Wound - Sacral Anaerobic Culture - Final No anaerobic bacteria isolated. Charges/Coding Procedures Integumentary 111xxx-113xx: [id number] Dana musc/fascia 20 sq cm/< Debridement Note Debridement Note Wound debrided: Sacral ulcer Laterality: Left Wound Grade/Stage: Stage IV Type of Debridement: Excisional debridement Anesthesia Used: 4% Lidocaine Solution and 5% Lidocaine Gel Depth: Down to and including healthy tissue, in the subcutaneous layer and to muscle Percentage of wound debrided: 100 Instrument Used: 5mm curette Tissue Removed: Devitalized tissue and slough into the muscle. Severity: Fat Layer Exposed Amount of bleeding with debridement: Mild Bleeding Controlled with: Pressure and Compression and gauze Patient tolerated procedure: Patient tolerated procedure well Post-Debridement Measurements and Additional Note: Post-Debridement Measurements/Treatment - Nurse 1 - General Ulcer Assessment Start: 12/13/22 10:33 Freq: Status: Active Protocol: JUSTIN Activity Type Activity Date Activity User E-sign Co-sign Detail Recorded Client Recorded Date Recorded By Document 12/13/22 10:33 KW [id number] 12/13/22 10:46 KW Document 12/27/22 10:17 DL [id number] 12/27/22 10:22 DL Document 01/03/23 10:57 DL [id number] 01/03/23 11:00 DL 12/13/22 12/27/22 01/03/23 10:33 10:17 10:57 - Today's Visit Information Type of service Follow-up Visit Follow-up Visit Follow-up Visit (Physician/INSTRUCTOR TAP DANCING (Physician/INSTRUCTOR TAP DANCING (Physician/INSTRUCTOR TAP DANCING ) ) ) Arrival Mode Walker Ambulatory, Ambulatory, Walker Walker Transfer Assistance None None Patient Identification Verified (Name & Yes Yes Yes ) Patient Requires Transmission-Based No No Precautions Safety Precautions NA Height and Weight Body Mass Index (BMI) 20.0 20.0 20.0 BMI Classification Normal Normal Normal Vital Signs Temperature (97.8 F-99.1 F) 97.5 F L 97.4 F L 96.7 F L Temperature Source Temporal Temporal Temporal Pulse Rate (60-100) 75 78 79 Pulse Location Monitor Monitor Monitor Respiratory Rate (12-18) 16 18 20 H Respiratory rate source Observation Observation Oxygen Delivery Method Room Air Blood Pressure (90/60-120/80) 156/89 H 139/78 H 147/70 H Blood Pressure Mean (mm Hg) 111 98 95 Source Monitor Monitor Monitor Position Sitting Blood Pressure Location Left Forearm History Since Last Visit- (Skip if this is Patient's initial visit) Have you changed medications since your No No No last visit? Any new allergies or adverse reactions No No No Had a fall/change in ADL's that may No No No increase risk of falls Signs or symptoms of abuse and/or No No No neglect since last visit Have you been in the hospital since your No No No last visit? Has dressing in place as prescribed Yes Yes Yes Has compression in place as prescribed N/A N/A Has offloadiing in place as prescribed N/A Yes Yes Experienced any changes in pain level or No No No management Left Footwear Regular Shoe Right Footwear Regular Shoe Pain Scale: 0-10 Numeric Is Patient Pain Free? Yes Yes Yes WC - Nurse 1 - General Ulcer Measurement Start: 12/13/22 10:33 Freq: Status: Active Protocol: Activity Type Activity Date Activity User E-sign Co-sign Detail Recorded Client Recorded Date Recorded By Document 12/13/22 10:33 KW [id number] 12/13/22 10:46 KW Document 12/27/22 10:17 DL [id number] 12/27/22 10:22 DL Document 01/03/23 10:57 DL [id number] 01/03/23 11:00 DL 12/13/22 12/27/22 01/03/23 10:33 10:17 10:57 Wound Center Nurse 1 1. sacral -Combined with (Name of Wound-Exactly 3.2 as it is documented) -Current Size (cm) - Length 1.5 2 0.1 -Current Size (cm) - Width 0.2 0.8 0.1 -Current Size (cm) - Depth 0.2 0.1 -Total Square Cm 0.30 1.6 0.01 -Photo Taken No -Epithelialization Medium 34-66% -Tunneling No -Undermining/Tunneling No -Circular Undermining No -Exudate Amt Small Small Medium -Exudate Type Serosanguineous Serosanguineous Serosanguineous -Wound Margin Distinct, Thickened Distinct, Outline Outline Attached Attached -Granulation Amt Medium (34-66%) Large (67-100%) Large (67-100%) -Granulation Quality Red [place] Red -Slough/Fibrin No -Necrosis Amt Small (1-33%) Small (1-33%) -Necrotic Tissue Type Adherent Slough Adherent Slough -Structure Exposed N/A N/A -Texture (Mahnaz-wound Skin Appearance) Assessed Scarring Scarring -Moisture (Mahnaz-wound Skin Appearance) Assessed No Abnormality No Abnormality -Color (Mahnaz-wound Skin Appearance) Assessed No Abnormality No Abnormality -Temperature (Mahnaz-wound Skin No Abnormality No Abnormality No Abnormality Appearance) (Pt Warm) (Pt Warm) (Pt Warm) -Tenderness on Palpation (Mahnaz-wound No Skin Appearance) -Ulcer Cleansing Rinsed/ Soap and Water Rinsed/ Irrigated with Irrigated with Saline Saline -Foul Odor after Cleansing No No No -Anesthetic Used 5% Lidocaine 5% Lidocaine 5% Lidocaine Gel Gel Gel Lower Limb Edema Present NA WC - Nurse 2 - General Ulcer CM Notes Start: 12/13/22 10:33 Freq: Status: Active Protocol: Activity Type Activity Date Activity User E-sign Co-sign Detail Recorded Client Recorded Date Recorded By Document 12/13/22 10:56 [id number] 12/13/22 10:57 Document 12/27/22 10:55 [id number] 12/27/22 10:58 12/13/22 12/27/22 10:56 10:55 Wound Center Nurse 2 1. sacral -Time 10:56 10:55 -Correct Patient Yes Yes -Correct Side, Site, Position Yes Yes -Correct Procedure Yes Yes -Procedure Performed Yes Yes -Type of Procedure Debridement Debridement -Clinical Debridement Subcutaneous Subcutaneous -Tissue Removed Subcutaneous Subcutaneous -Post Debridement (cm) - Length 3.5 3.3 -Post Debridement (cm) - Width 1.7 1.7 -Post Debridement (cm) - Depth 0.2 0.2 -Total Square (Post) (cm) 5.95 5.61 -Area of Debridement (cm) - Length 3.5 3.3 -Area of Debridement (cm) - Width 1.7 1.7 -Total Square (Area) (cm) 5.95 5.61 -Tunneling No No -Undermining/Tunneling No No -Circular Undermining No No -Wound/Ulcer Outcome Not Healed Not Healed -Ulcer Cleansing Rinsed/ Rinsed/ Irrigated with Irrigated with Saline Saline -Foul Odor after Cleansing No No -Bioengineered Tissue No No -Bleeding Controlled with Pressure Pressure -Treatment Response Procedure Procedure Tolerated Well Tolerated Well -Offloading No No -Debridement - Subq, 1st 20sq cm Yes Yes Pain Scale: 0-10 Numeric Is Patient Pain Free? Yes Yes - Nurse 3 - General Ulcer D/C NN Start: 12/13/22 10:33 Freq: Status: Active Protocol: Activity Type Activity Date Activity User E-sign Co-sign Detail Recorded Client Recorded Date Recorded By Document 12/13/22 10:57 [id number] 12/13/22 10:59 Document 12/27/22 11:11 [id number] 12/27/22 11:12 12/13/22 12/27/22 10:57 11:11 Wound Care Center Nurse 3 1. sacral -Ulcer Cleansing Rinsed/ Rinsed/ Irrigated with Irrigated with Saline Saline -Foul Odor after Cleansing No No -Primary Dressing Applied Silvercel Silvercel -Other Dressing ABD -Primary Dressing Covered/Secured with Dry Gauze, Secured with Secured with Tape Tape -Silvercel 1 1 Pain Scale: 0-10 Numeric Is Patient Pain Free? Yes Yes - Visit Discharge Discharge Condition Stable Stable Ambulatory Status Ambulatory, Ambulatory Walker Transportation Private Auto Private Auto Medication Reconcilliation completed & Yes provided to patient/care provider Clinical Summary of Care Provided Yes Assessment/Plan Assessment/Plan (1) Pressure ulcer of sacral region, stage 4: CODE(S): L89.154 - Pressure ulcer of sacral region, stage 4 (2) Rheumatoid arthritis: CODE(S): M06.9 - Rheumatoid arthritis, unspecified (3) Debility: CODE(S): R53.81 - Other malaise PLAN: Plan Patient evaluated at the wound center today. Wound care - Silvercel dressing topped with gauze or ABD to be changed 3 times per week and as needed. Ideally she would be able to learn how to change her dressing so she could have it changed daily. I believe this would help with her wound healing. Stressed the importance of placing Aquaphor or Vaseline around the edge of the ulcer to help prevent excoriation. Wash ulcer and mahnaz wound with chlorhexidine wash at each dressing change. Wound culture obtained 12/27/22 which was positive for Corynebacterium striatum which is considered a skin contaminant which there is no need to treat with antibiotics. Wound culture obtained 11/01/22 which was positive for Pseudomonas aeruginosa (very rare amount), Corynebacterium striatum, and Anaerobic cocci. She is allergic to the oral options to treat the Pseudomonas. I spoke with the hospital pharmacist Audra Martinez, on 11/08/22, about her wound culture and she stated that fluoroquinolones are the only option to treat pseudomonas. I discussed with the patient about referring her to ID for further evaluation and treatment but she absolutely refuses to see him because when she was hospitalized, he discussed the possibility of her needing a colostomy and that caused her stress. I would like to have her do dakin's moistened gauze daily to treat this, but the patient is not able to have daily dressing changes due to no help when home health is not present and she is not able to change the dressing herself. Will have her washing the ulcer with chlorhexidine at the time of the dressing change. She completed the Diflucan for her positive operative fungal cultures. Labs drawn on 10/13/22: Total Bili 0.30, AST 17, ALT 20, Alk Phos 151. On 07/25/22 Alk Phos 152. Prealbumin 12.8 on 05/23/22. Encouraged increase protein supplementation. She state she is drinking Tommy 1-2 times per day in addition to her increase in dietary protein. Follow 1 week. Call or come in sooner if develop any questions or concerns.
== END 2023-01-08 23:59 | disposition home or self-care (01) ==
LOC: WC 10:15
PROVIDERS: PCP Family Medicine; Visit Provider Nurse Practitioner Family
DX: L89.154 Pressure ulcer of sacral region, stage 4 (principal); M06.9 Rheumatoid arthritis, unspecified; Z79.82 Long term (current) use of aspirin; Z79.899 Other long term (current) drug therapy; Z87.39 Personal history of other diseases of the musculoskeletal system and connective tissue
CPT/HCPCS: 11042; 87070; 87075; 87077; 87205

== ENCOUNTER 2023-02-07 10:15 | Outpatient (RCR) | payer MEDICARE, OTHER, SELFPAY ==
[2023-01-09 00:13] VITALS: BP 147/70; PULSE 79; RESP 20; TEMP 35.9
[2023-01-10 10:24] VITALS: BP 149/75; PULSE 75; RESP 20; TEMP 36.6
--- NOTE | 2023-01-10 10:42 | PCM.WC.PN ---
History of Present Illness Date of Service: 01/10/23 Chief Complaint: Left sacral ulcer History of Wound: 72 year old female with below past medical history suffered fall from second story, hospitalized for multi trauma, underwent left tibia intramedullary nail fixation, right hip anterograde intramedullary nail, complicated by encephalopathy from urinary tract infection, stage 4 left sacral pressure ulcer with chronic osteomyelitis, admitted to TCU on 04/17/22 with debility, there for rehabilitation, strengthening, prior to discharge home alone on 06/25/22 with home health/PT/OT. Surgery 05/22/[address] Lee for Excision necrotic left sacral pressure sore, Stage IV, with partial ostectomy for osteomyelitis. Operative tissue cultures positive for Eschericha coli, Streptococcus sanguinis, Corynebacterium amycolatum, Provotella oralis, Anaerobic cocci, and most recently Fernanda albicans and Aspirgillus fumigatus. Operative bone culture positive for Provotella disiens and Fernanda albicans. She was treated with Levaquin and Augmentin. She developed muscle pain so the Levaquin was switched to Doxycycline. The fungal cultures just recently came back and we will start her on Diflucan. Wound culture obtained 11/01/22 which was positive for Pseudomonas aeruginosa (very rare). Corynebacterium striatum and Anaerobic cocci. With her multiple drug allergies, there is not an oral antibiotic to treat the Pseudomonas, but it is rare, so will start cleansing with chlorhexidine at the time of the dressing change 3 times per week and start her on Augmentin and probiotic. Wound culture from 12/27/22 positive for Corynebacterium striatum which is a skin contaminant. Wound care is wound Silver alginate to be changed 3 times per week and as needed. She has home health to assist with the dressing changes. Today she denies fever, chills, nausea or vomiting. She states she is doing well at home. Progress of Wound: Left sacral ulcer is beefy pink. She continues to have thickened edges of the ulcer that are curling in. It is stable in size. Mahnaz wound is clear. Objective Data Objective Data Vital Signs: Vital Signs Temp Pulse Resp BP 97.8 F 75 20 H 149/75 H 01/10/23 10:24 01/10/23 10:24 01/10/23 10:24 01/10/23 10:24 Weight: 124 lb Body Mass Index (BMI) 20.0 Charges/Coding Procedures Integumentary 111xxx-113xx: [id number] Dana subq tissue 20 sq cm/< Debridement Note Debridement Note Wound debrided: Sacral ulcer Laterality: Left Wound Grade/Stage: Stage IV Type of Debridement: Excisional debridement Anesthesia Used: 4% Lidocaine Solution and 5% Lidocaine Gel Depth: Down to and including healthy tissue, in the subcutaneous layer and to muscle Percentage of wound debrided: 100 Instrument Used: - ([employer] aqua debrider) Tissue Removed: Devitalized tissue and slough into the muscle. Severity: Fat Layer Exposed Amount of bleeding with debridement: Mild Bleeding Controlled with: Pressure and Compression and gauze Patient tolerated procedure: Patient tolerated procedure well Post-Debridement Measurements and Additional Note: Post-Debridement Measurements/Treatment WC - Nurse 1 - General Ulcer Assessment Start: 01/10/23 10:23 Freq: Status: Active Protocol: BRADEN.SAVANNAH Activity Type Activity Date Activity User E-sign Co-sign Detail Recorded Client Recorded Date Recorded By Document 01/10/23 10:24 DL [id number] 01/10/23 10:30 DL 01/10/23 10:24 WC - Today's Visit Information Type of service Follow-up Visit (Physician/CORE DRILLING SUPERVISOR ) Arrival Mode Ambulatory, Walker Transfer Assistance None Patient Identification Verified (Name & Yes ) Patient Requires Transmission-Based No Precautions Height and Weight Body Mass Index (BMI) 20.0 BMI Classification Normal Vital Signs Temperature (97.8 F-99.1 F) 97.8 F Temperature Source Temporal Pulse Rate (60-100) 75 Pulse Location Monitor Respiratory Rate (12-18) 20 H Respiratory rate source Observation Blood Pressure (90/60-120/80) 149/75 H Blood Pressure Mean (mm Hg) 99 Source Monitor History Since Last Visit- (Skip if this is Patient's initial visit) Have you changed medications since your No last visit? Any new allergies or adverse reactions No Had a fall/change in ADL's that may No increase risk of falls Signs or symptoms of abuse and/or No neglect since last visit Have you been in the hospital since your No last visit? Has dressing in place as prescribed Yes Has compression in place as prescribed N/A Has offloadiing in place as prescribed Yes Experienced any changes in pain level or No management Pain Scale: 0-10 Numeric Is Patient Pain Free? Yes WC - Nurse 1 - General Ulcer Measurement Start: 01/10/23 10:23 Freq: Status: Active Protocol: Activity Type Activity Date Activity User E-sign Co-sign Detail Recorded Client Recorded Date Recorded By Document 01/10/23 10:24 DL [id number] 01/10/23 10:30 DL 01/10/23 10:24 Wound Center Nurse 1 1. sacral -Current Size (cm) - Length 2.4 -Current Size (cm) - Width 0.9 -Current Size (cm) - Depth 0.2 -Total Square Cm 2.16 -Photo Taken Yes -Exudate Amt Small -Exudate Type Serosanguineous -Wound Margin Thickened & Rolled Under -Granulation Amt Large (67-100%) -Granulation Quality [place] -Necrosis Amt Small (1-33%) -Necrotic Tissue Type Adherent Slough -Structure Exposed N/A -Texture (Mahnaz-wound Skin Appearance) Scarring -Moisture (Mahnaz-wound Skin Appearance) No Abnormality -Color (Mahnaz-wound Skin Appearance) No Abnormality -Temperature (Mahnaz-wound Skin No Abnormality Appearance) (Pt Warm) -Tenderness on Palpation (Mahnaz-wound No Skin Appearance) -Ulcer Cleansing Soap and Water -Foul Odor after Cleansing No -Anesthetic Used 5% Lidocaine Gel Assessment/Plan Assessment/Plan (1) Pressure ulcer of sacral region, stage 4: CODE(S): L89.154 - Pressure ulcer of sacral region, stage 4 (2) Rheumatoid arthritis: CODE(S): M06.9 - Rheumatoid arthritis, unspecified (3) Debility: CODE(S): R53.81 - Other malaise PLAN: Plan Patient evaluated at the wound center today. Wound care - Silvercel dressing topped with gauze or ABD to be changed 3 times per week and as needed. Ideally she would be able to learn how to change her dressing so she could have it changed daily. I believe this would help with her wound healing. Stressed the importance of placing Aquaphor or Vaseline around the edge of the ulcer to help prevent excoriation. Wash ulcer and mahnaz wound with chlorhexidine wash at each dressing change. Wound culture obtained 12/27/22 which was positive for Corynebacterium striatum which is considered a skin contaminant which there is no need to treat with antibiotics. Wound culture obtained 11/01/22 which was positive for Pseudomonas aeruginosa (very rare amount), Corynebacterium striatum, and Anaerobic cocci. She is allergic to the oral options to treat the Pseudomonas. I spoke with the hospital pharmacist Audra Martinez, on 11/08/22, about her wound culture and she stated that fluoroquinolones are the only option to treat pseudomonas. I discussed with the patient about referring her to ID for further evaluation and treatment but she absolutely refuses to see him because when she was hospitalized, he discussed the possibility of her needing a colostomy and that caused her stress. I would like to have her do dakin's moistened gauze daily to treat this, but the patient is not able to have daily dressing changes due to no help when home health is not present and she is not able to change the dressing herself. Will have her washing the ulcer with chlorhexidine at the time of the dressing change. She completed the Diflucan for her positive operative fungal cultures. Labs drawn on 10/13/22: Total Bili 0.30, AST 17, ALT 20, Alk Phos 151. On 07/25/22 Alk Phos 152. Prealbumin 12.8 on 05/23/22. Encouraged increase protein supplementation. She state she is drinking Tommy 1-2 times per day in addition to her increase in dietary protein. Follow 1 week. Call or come in sooner if develop any questions or concerns.
[2023-01-17 10:20] VITALS: BP 148/76; PULSE 74; RESP 18; TEMP 36.9
--- NOTE | 2023-01-17 11:13 | PCM.WC.PN ---
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 Surgery 05/22/[address] Lee for Excision necrotic left sacral pressure sore, Stage IV, with partial ostectomy for osteomyelitis. Operative tissue cultures positive for Eschericha coli, Streptococcus sanguinis, Corynebacterium amycolatum, Provotella oralis, Anaerobic cocci, and most recently Fernanda albicans and Aspirgillus fumigatus. Operative bone culture positive for Provotella disiens and Fernanda albicans. She was treated with Levaquin and Augmentin. She developed muscle pain so the Levaquin was switched to Doxycycline. The fungal cultures just recently came back and we will start her on Diflucan. Wound culture obtained 11/01/22 which was positive for Pseudomonas aeruginosa (very rare). Corynebacterium striatum and Anaerobic cocci. With her multiple drug allergies, there is not an oral antibiotic to treat the Pseudomonas, but it is rare, so will start cleansing with chlorhexidine at the time of the dressing change 3 times per week and start her on Augmentin and probiotic. Wound culture from 12/27/22 positive for Corynebacterium striatum which is a skin contaminant. Wound care is wound Silver alginate to be changed 3 times per week and as needed. She has home health to assist with the dressing changes. Today she denies fever, chills, nausea or vomiting. She states she is doing well at home. Progress of Wound: Left sacral ulcer is beefy pink. She continues to have thickened edges of the ulcer that are curling in. It is stable in size. Mahnaz wound is clear. Objective Data Objective Data Vital Signs: Vital Signs Temp Pulse Resp BP 98.5 F 74 18 148/76 H 01/17/23 10:20 01/17/23 10:20 01/17/23 10:20 01/17/23 10:20 Weight: 124 lb Body Mass Index (BMI) 20.0 Charges/Coding Procedures Integumentary 111xxx-113xx: 78867 Dana musc/fascia 20 sq cm/< Debridement Note Debridement Note Wound debrided: Sacral ulcer Laterality: Left Wound Grade/Stage: Stage IV Type of Debridement: Excisional debridement Anesthesia Used: 4% Lidocaine Solution and Cetacaine Depth: Down to and including healthy tissue, in the subcutaneous layer and to muscle Percentage of wound debrided: 100 Instrument Used: 3mm curette and - (Misonix aqua curette debrided) Tissue Removed: Devitalized tissue and slough into the muscle Severity: Fat Layer Exposed Amount of bleeding with debridement: Mild Bleeding Controlled with: Pressure, Compression and gauze and Silver Nitrate (small area on right side of ulcer) Patient tolerated procedure: Patient tolerated procedure well Debridement Free Text: Able to removed the thickened scar tissue that is surrounding the ulcer using the Missonix curette tip. Patient tolerated this fairly well. Post-Debridement Measurements and Additional Note: Post-Debridement Measurements/Treatment - Nurse 1 - General Ulcer Assessment Start: 01/10/23 10:23 Freq: Status: Active Protocol: BRADEN.LOWLISSA Activity Type Activity Date Activity User E-sign Co-sign Detail Recorded Client Recorded Date Recorded By Document 01/10/23 10:24 DL [id number] 01/10/23 10:30 DL Document 01/17/23 10:20 PL [id number] 01/17/23 10:23 PL 01/10/23 01/17/23 10:24 10:20 - Today's Visit Information Type of service Follow-up Visit Follow-up Visit (Physician/WELCOME CENTER ATTENDANT (Physician/WELCOME CENTER ATTENDANT ) ) Arrival Mode Ambulatory, Ambulatory, Walker Walker Transfer Assistance None None Patient Identification Verified (Name & Yes Yes ) Patient Requires Transmission-Based No No Precautions Safety Precautions NA Height and Weight Body Mass Index (BMI) 20.0 20.0 BMI Classification Normal Normal Vital Signs Temperature (97.8 F-99.1 F) 97.8 F 98.5 F Temperature Source Temporal Temporal Pulse Rate (60-100) 75 74 Pulse Location Monitor Respiratory Rate (12-18) 20 H 18 Respiratory rate source Observation Blood Pressure (90/60-120/80) 149/75 H 148/76 H Blood Pressure Mean (mm Hg) 99 100 Source Monitor History Since Last Visit- (Skip if this is Patient's initial visit) Have you changed medications since your No No last visit? Any new allergies or adverse reactions No No Had a fall/change in ADL's that may No No increase risk of falls Signs or symptoms of abuse and/or No No neglect since last visit Have you been in the hospital since your No No last visit? Has dressing in place as prescribed Yes Yes Has compression in place as prescribed N/A N/A Has offloadiing in place as prescribed Yes N/A Experienced any changes in pain level or No No management Pain Scale: 0-10 Numeric Is Patient Pain Free? Yes Yes BRADEN - Nurse 1 - General Ulcer Measurement Start: 01/10/23 10:23 Freq: Status: Active Protocol: Activity Type Activity Date Activity User E-sign Co-sign Detail Recorded Client Recorded Date Recorded By Document 01/10/23 10:24 DL [id number] 01/10/23 10:30 DL 01/10/23 10:24 Wound Center Nurse 1 1. sacral -Current Size (cm) - Length 2.4 -Current Size (cm) - Width 0.9 -Current Size (cm) - Depth 0.2 -Total Square Cm 2.16 -Photo Taken Yes -Exudate Amt Small -Exudate Type Serosanguineous -Wound Margin Thickened & Rolled Under -Granulation Amt Large (67-100%) -Granulation Quality [place] -Necrosis Amt Small (1-33%) -Necrotic Tissue Type Adherent Slough -Structure Exposed N/A -Texture (Mahnaz-wound Skin Appearance) Scarring -Moisture (Mahnaz-wound Skin Appearance) No Abnormality -Color (Mahnaz-wound Skin Appearance) No Abnormality -Temperature (Mahnaz-wound Skin No Abnormality Appearance) (Pt Warm) -Tenderness on Palpation (Mahnaz-wound No Skin Appearance) -Ulcer Cleansing Soap and Water -Foul Odor after Cleansing No -Anesthetic Used 5% Lidocaine Gel BRADEN - Nurse 2 - General Ulcer CM Notes Start: 01/10/23 10:23 Freq: Status: Active Protocol: Activity Type Activity Date Activity User E-sign Co-sign Detail Recorded Client Recorded Date Recorded By Document 01/10/23 11:44 PL [id number] 01/10/23 11:45 PL Document 01/17/23 10:43 [id number] 01/17/23 10:49 01/10/23 01/17/23 11:44 10:43 Wound Center Nurse 2 1. sacral -Time 10:34 10:43 -Correct Patient Yes Yes -Correct Side, Site, Position Yes Yes -Correct Procedure Yes Yes -Procedure Performed Yes Yes -Type of Procedure Debridement Debridement -Clinical Debridement Subcutaneous Subcutaneous -Tissue Removed Subcutaneous Subcutaneous -Post Debridement (cm) - Length 3.0 3.5 -Post Debridement (cm) - Width 1.7 2.2 -Post Debridement (cm) - Depth 0.2 0.2 -Total Square (Post) (cm) 5.10 7.70 -Area of Debridement (cm) - Length 3.0 3.5 -Area of Debridement (cm) - Width 1.7 2.2 -Total Square (Area) (cm) 5.10 7.70 -Tunneling No No -Undermining/Tunneling No No -Circular Undermining No No -Wound/Ulcer Outcome Not Healed Not Healed -Ulcer Cleansing Rinsed/ Rinsed/ Irrigated with Irrigated with Saline Saline -Foul Odor after Cleansing No No -Bioengineered Tissue No No -Bleeding Controlled with Pressure Pressure -Treatment Response Procedure Procedure Tolerated Well Tolerated Well -Offloading No -Debridement - Subq, 1st 20sq cm Yes Yes Pain Scale: 0-10 Numeric Is Patient Pain Free? Yes Yes - Nurse 3 - General Ulcer D/C NN Start: 01/10/23 10:23 Freq: Status: Active Protocol: Activity Type Activity Date Activity User E-sign Co-sign Detail Recorded Client Recorded Date Recorded By Document 01/17/23 10:49 [id number] 01/17/23 10:49 01/17/23 10:49 Wound Care Center Nurse 3 1. sacral -Ulcer Cleansing Rinsed/ Irrigated with Saline -Foul Odor after Cleansing No -Primary Dressing Applied Silvercel -Primary Dressing Covered/Secured with Dry Gauze, Secured with Tape -Silvercel 1 Pain Scale: 0-10 Numeric Is Patient Pain Free? Yes - Visit Discharge Discharge Condition Stable Ambulatory Status Ambulatory, Walker Transportation Private Auto Medication Reconcilliation completed & Yes provided to patient/care provider Clinical Summary of Care Provided Yes Assessment/Plan Assessment/Plan (1) Pressure ulcer of sacral region, stage 4: CODE(S): L89.154 - Pressure ulcer of sacral region, stage 4 (2) Rheumatoid arthritis: CODE(S): M06.9 - Rheumatoid arthritis, unspecified (3) Debility: CODE(S): R53.81 - Other malaise PLAN: Plan Patient evaluated at the wound center today. Using the Misonix Aquasonic curette, able to remove the thickened scar tissue surrounding the ulcer. Hopefully this will help boost her wound healing that has slowed down. If there is not much improvement in the next several weeks, then she will need to be referred to Dr. Lee for a possible operative debridement. Wound care - Silvercel dressing topped with gauze or ABD to be changed 3 times per week and as needed. Ideally she would be able to learn how to change her dressing so she could have it changed daily. I believe this would help with her wound healing. Stressed the importance of placing Aquaphor or Vaseline around the edge of the ulcer to help prevent excoriation. Wash ulcer and mahnaz wound with chlorhexidine wash at each dressing change. Wound culture obtained 12/27/22 which was positive for Corynebacterium striatum which is considered a skin contaminant which there is no need to treat with antibiotics. Wound culture obtained 11/01/22 which was positive for Pseudomonas aeruginosa (very rare amount), Corynebacterium striatum, and Anaerobic cocci. She is allergic to the oral options to treat the Pseudomonas. I spoke with the hospital pharmacist Audra Martinez, on 11/08/22, about her wound culture and she stated that fluoroquinolones are the only option to treat pseudomonas. I discussed with the patient about referring her to ID for further evaluation and treatment but she absolutely refuses to see him because when she was hospitalized, he discussed the possibility of her needing a colostomy and that caused her stress. I would like to have her do dakin's moistened gauze daily to treat this, but the patient is not able to have daily dressing changes due to no help when home health is not present and she is not able to change the dressing herself. Will have her washing the ulcer with chlorhexidine at the time of the dressing change. She completed the Diflucan for her positive operative fungal cultures. Labs drawn on 10/13/22: Total Bili 0.30, AST 17, ALT 20, Alk Phos 151. On 07/25/22 Alk Phos 152. Prealbumin 12.8 on 05/23/22. Encouraged increase protein supplementation. She state she is drinking Tommy 1-2 times per day in addition to her increase in dietary protein. Follow 1 week. Call or come in sooner if develop any questions or concerns.
[2023-01-24 10:23] VITALS: BP 150/79; PULSE 84; RESP 18; TEMP 37
--- NOTE | 2023-01-24 14:36 | PN.PCM_ITS ---
History of Present Illness Date of Service: 01/24/23 Chief Complaint: Left sacral ulcer History of Wound: 72 year old female with below past medical history suffered fall from second story, hospitalized for multi trauma, underwent left tibia intramedullary nail fixation, right hip anterograde intramedullary nail, complicated by encephalopathy from urinary tract infection, stage 4 left sacral pressure ulcer with chronic osteomyelitis, admitted to TCU on 04/17/22 with debility, there for rehabilitation, strengthening, prior to discharge home alone on 06/25/22 with home health/PT/OT. Surgery 05/22/[address] Lee for Excision necrotic left sacral pressure sore, Stage IV, with partial ostectomy for osteomyelitis. Operative tissue cultures positive for Eschericha coli, Streptococcus sanguinis, Corynebacterium amycolatum, Provotella oralis, Anaerobic cocci, and most recently Fernanda albicans and Aspirgillus fumigatus. Operative bone culture positive for Provotella disiens and Fernanda albicans. She was treated with Levaquin and Augmentin. She developed muscle pain so the Levaquin was switched to Doxycycline. The fungal cultures just recently came back and we will start her on Diflucan. Wound culture obtained 11/01/22 which was positive for Pseudomonas aeruginosa (very rare). Corynebacterium striatum and Anaerobic cocci. With her multiple drug allergies, there is not an oral antibiotic to treat the Pseudomonas, but it is rare, so will start cleansing with chlorhexidine at the time of the dressing change 3 times per week and start her on Augmentin and probiotic. Wound culture from 12/27/22 positive for Corynebacterium striatum which is a skin contaminant. Wound care is wound Silver alginate to be changed 3 times per week and as needed. She has home health to assist with the dressing changes. Today she denies fever, chills, nausea or vomiting. She states she is doing well at home. Progress of Wound: Left sacral ulcer is beefy pink. The edges of her ulcer are not as thick after using the Misonix curette last week. Mahnaz wound is clear. Objective Data Objective Data Vital Signs: Vital Signs Temp Pulse Resp BP 98.6 F 84 18 150/79 H 01/24/23 10:23 01/24/23 10:23 01/24/23 10:01/24/23 10:23 Weight: 124 lb Body Mass Index (BMI) 20.0 Charges/Coding Procedures Integumentary 111xxx-113xx: 11549 Dana subq tissue 20 sq cm/< Debridement Note Debridement Note Wound debrided: Sacral ulcer Laterality: Left Wound Grade/Stage: Stage IV Type of Debridement: Excisional debridement Anesthesia Used: 4% Lidocaine Solution and Cetacaine Depth: Down to and including healthy tissue and in the subcutaneous layer Percentage of wound debrided: 100 Instrument Used: - (Misonix aqua curette debrided) Tissue Removed: Devitalized tissue and slough Severity: Fat Layer Exposed Amount of bleeding with debridement: Mild Bleeding Controlled with: Pressure, Compression and gauze and Silver Nitrate (small area on right side of ulcer) Patient tolerated procedure: Patient tolerated procedure well Post-Debridement Measurements and Additional Note: Post-Debridement Measurements/Treatment - Nurse 1 - General Ulcer Assessment Start: 01/10/23 10:23 Freq: Status: Active Protocol: .SAVANNAH Activity Type Activity Date Activity User E-sign Co-sign Detail Recorded Client Recorded Date Recorded By Document 01/10/23 10:24 DL [id number] 01/10/23 10:30 DL Document 01/17/23 10:20 PL [id number] 01/17/23 10:23 PL Document 01/24/23 10:23 PL [id number] 01/24/23 10:32 PL 01/10/23 01/17/23 01/24/23 10:24 10:20 10:23 - Today's Visit Information Type of service Follow-up Visit Follow-up Visit Follow-up Visit (Physician/IMAGING TECH (Physician/IMAGING TECH (Physician/IMAGING TECH ) ) ) Arrival Mode Ambulatory, Ambulatory, Ambulatory, Walker Walker Walker Transfer Assistance None None None Patient Identification Verified (Name & Yes Yes Yes ) Patient Requires Transmission-Based No No No Precautions Safety Precautions NA NA Height and Weight Body Mass Index (BMI) 20.0 20.0 20.0 BMI Classification Normal Normal Normal Vital Signs Temperature (97.8 F-99.1 F) 97.8 F 98.5 F 98.6 F Temperature Source Temporal Temporal Temporal Pulse Rate (60-100) 75 74 84 Pulse Location Monitor Respiratory Rate (12-18) 20 H 18 18 Respiratory rate source Observation Blood Pressure (90/60-120/80) 149/75 H 148/76 H 150/79 H Blood Pressure Mean (mm Hg) 99 100 102 Source Monitor History Since Last Visit- (Skip if this is Patient's initial visit) Have you changed medications since your No No No last visit? Any new allergies or adverse reactions No No No Had a fall/change in ADL's that may No No No increase risk of falls Signs or symptoms of abuse and/or No No No neglect since last visit Have you been in the hospital since your No No No last visit? Has dressing in place as prescribed Yes Yes Yes Has compression in place as prescribed N/A N/A N/A Has offloadiing in place as prescribed Yes N/A N/A Experienced any changes in pain level or No No No management Pain Scale: 0-10 Numeric Is Patient Pain Free? Yes Yes Yes WC - Nurse 1 - General Ulcer Measurement Start: 01/10/23 10:23 Freq: Status: Active Protocol: Activity Type Activity Date Activity User E-sign Co-sign Detail Recorded Client Recorded Date Recorded By Document 01/10/23 10:24 DL [id number] 01/10/23 10:30 DL 01/10/23 10:24 Wound Center Nurse 1 1. sacral -Current Size (cm) - Length 2.4 -Current Size (cm) - Width 0.9 -Current Size (cm) - Depth 0.2 -Total Square Cm 2.16 -Photo Taken Yes -Exudate Amt Small -Exudate Type Serosanguineous -Wound Margin Thickened & Rolled Under -Granulation Amt Large (67-100%) -Granulation Quality [place] -Necrosis Amt Small (1-33%) -Necrotic Tissue Type Adherent Slough -Structure Exposed N/A -Texture (Mahnaz-wound Skin Appearance) Scarring -Moisture (Mahnaz-wound Skin Appearance) No Abnormality -Color (Mahnaz-wound Skin Appearance) No Abnormality -Temperature (Mahnaz-wound Skin No Abnormality Appearance) (Pt Warm) -Tenderness on Palpation (Mahnaz-wound No Skin Appearance) -Ulcer Cleansing Soap and Water -Foul Odor after Cleansing No -Anesthetic Used 5% Lidocaine Gel WC - Nurse 2 - General Ulcer CM Notes Start: 01/10/23 10:23 Freq: Status: Active Protocol: Activity Type Activity Date Activity User E-sign Co-sign Detail Recorded Client Recorded Date Recorded By Document 01/10/23 11:44 PL [id number] 01/10/23 11:45 PL Document 01/17/23 10:43 JF [id number] 01/17/23 10:49 JF Edit Result 01/17/23 10:43 JF (1) [id number] 01/18/23 07:42 JF Document 01/24/23 10:47 JF [id number] 01/24/23 10:49 JF (1) 1. sacral - Clinical Debridement Subcutaneous => Muscle / Fascia - Tissue Removed Subcutaneous => Muscle,Fascia - Debridement - Subq, 1st 20sq cm Yes => No - Debridement - Muscle / Fascia, 1st => Yes 20sq cm 01/10/23 01/17/23 01/24/23 11:44 10:43 10:47 Wound Center Nurse 2 1. sacral -Time 10:34 10:43 10:47 -Correct Patient Yes Yes Yes -Correct Side, Site, Position Yes Yes Yes -Correct Procedure Yes Yes Yes -Procedure Performed Yes Yes Yes -Type of Procedure Debridement Debridement Debridement -Clinical Debridement Subcutaneous Muscle / Fascia Subcutaneous -Tissue Removed Subcutaneous Muscle,Fascia Subcutaneous -Post Debridement (cm) - Length 3.0 3.5 3.5 -Post Debridement (cm) - Width 1.7 2.2 2.0 -Post Debridement (cm) - Depth 0.2 0.2 0.2 -Total Square (Post) (cm) 5.10 7.70 7.00 -Area of Debridement (cm) - Length 3.0 3.5 3.5 -Area of Debridement (cm) - Width 1.7 2.2 2.0 -Total Square (Area) (cm) 5.10 7.70 7.00 -Tunneling No No No -Undermining/Tunneling No No No -Circular Undermining No No No -Wound/Ulcer Outcome Not Healed Not Healed Not Healed -Ulcer Cleansing Rinsed/ Rinsed/ Rinsed/ Irrigated with Irrigated with Irrigated with Saline Saline Saline -Foul Odor after Cleansing No No No -Bioengineered Tissue No No No -Bleeding Controlled with Pressure Pressure Pressure -Treatment Response Procedure Procedure Procedure Tolerated Well Tolerated Well Tolerated Well -Offloading No No -Debridement - Subq, 1st 20sq cm Yes No Yes -Debridement - Muscle / Fascia, 1st Yes 20sq cm Pain Scale: 0-10 Numeric Is Patient Pain Free? Yes Yes Yes WC - Nurse 3 - General Ulcer D/C NN Start: 01/10/23 10:23 Freq: Status: Active Protocol: Activity Type Activity Date Activity User E-sign Co-sign Detail Recorded Client Recorded Date Recorded By Document 01/17/23 10:49 HUMERA [id number] 01/17/23 10:49 Document 01/24/23 10:49 [id number] 01/24/23 10:50 01/17/23 01/24/23 10:49 10:49 Wound Care Center Nurse 3 1. sacral -Ulcer Cleansing Rinsed/ Rinsed/ Irrigated with Irrigated with Saline Saline -Foul Odor after Cleansing No No -Primary Dressing Applied Silvercel Silvercel -Primary Dressing Covered/Secured with Dry Gauze, Secured with Secured with Tape Tape -Other Covering abd pads -Silvercel 1 1 Pain Scale: 0-10 Numeric Is Patient Pain Free? Yes Yes WC - Visit Discharge Discharge Condition Stable Stable Ambulatory Status Ambulatory, Ambulatory, Walker Walker Transportation Private Auto Private Auto Medication Reconcilliation completed & Yes Yes provided to patient/care provider Clinical Summary of Care Provided Yes Yes Assessment/Plan Assessment/Plan (1) Pressure ulcer of sacral region, stage 4: CODE(S): L89.154 - Pressure ulcer of sacral region, stage 4 (2) Rheumatoid arthritis: CODE(S): M06.9 - Rheumatoid arthritis, unspecified (3) Debility: CODE(S): R53.81 - Other malaise PLAN: Plan Patient evaluated at the wound center today. Using the Misonix Aquasonic curette, able to remove the thickened scar tissue s urrounding the ulcer. Hopefully this will help boost her wound healing that has slowed down. If there is not much improvement in the next several weeks, then she will need to be referred to Dr. Lee for a possible operative debridement. Wound care - Silvercel dressing topped with gauze or ABD to be changed 3 times per week and as needed. Ideally she would be able to learn how to change her d ressing so she could have it changed daily. I believe this would help with her wound healing. Stressed the importance of placing Aquaphor or Vaseline around the edge of the ulcer to help prevent excoriation. Wash ulcer and mahnaz wound with chlorhexidine wash at each dressing change. Wound culture obtained 12/27/22 which was positive for Corynebacterium striatum which is considered a skin contaminant which there is no need to treat with antibiotics. Wound culture obtained 11/01/22 which was positive for Pseudomonas aeruginosa (very rare amount), Corynebacterium striatum, and Anaerobic cocci. She is allergic to the oral options to treat the Pseudomonas. I spoke with the hospital pharmacist Audra Martinez, on 11/08/22, about her wound culture and she stated that fluoroquinolones are the only option to treat pseudomonas. I discussed with the patient about referring her to ID for further evaluation and treatment but she absolutely refuses to see him because when she was hospitalized, he d iscussed the possibility of her needing a colostomy and that caused her stress. I would like to have her do dakin's moistened gauze daily to treat this, but the patient is not able to have daily dressing changes due to no help when home health is not present and she is not able to change the dressing herself. Will have her washing the ulcer with chlorhexidine at the time of the dressing change. She completed the Diflucan for her positive operative fungal cultures. Labs drawn on 10/13/22: Total Bili 0.30, AST 17, ALT 20, Alk Phos 151. On 07/25/22 Alk Phos 152. Prealbumin 12.8 on 05/23/22. Encouraged increase protein supplementation. She state she is drinking Tommy 1-2 times per day in addition to her increase in dietary protein. Follow 1 week. Call or come in sooner if develop any questions or concerns.
[2023-01-31 10:18] VITALS: BP 157/72; PULSE 72; RESP 18; TEMP 36.9
--- NOTE | 2023-01-31 12:11 | PN.PCM_ITS ---
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 Surgery 05/22/[address] Lee for Excision necrotic left sacral pressure sore, Stage IV, with partial ostectomy for osteomyelitis. Operative tissue cultures positive for Eschericha coli, Streptococcus sanguinis, Corynebacterium amycolatum, Provotella oralis, Anaerobic cocci, and most recently Fernanda albicans and Aspirgillus fumigatus. Operative bone culture positive for Provotella disiens and Fernanda albicans. She was treated with Levaquin and Augmentin. She developed muscle pain so the Levaquin was switched to Doxycycline. The fungal cultures just recently came back and we will start her on Diflucan. Wound culture obtained 11/01/22 which was positive for Pseudomonas aeruginosa (very rare). Corynebacterium striatum and Anaerobic cocci. With her multiple drug allergies, there is not an oral antibiotic to treat the Pseudomonas, but it is rare, so will start cleansing with chlorhexidine at the time of the dressing change 3 times per week and start her on Augmentin and probiotic. Wound culture from 12/27/22 positive for Corynebacterium striatum which is a skin contaminant. Wound care is Fibrocol+ to be changed 3 times per week and as needed. She has home health to assist with the dressing changes. Today she denies fever, chills, nausea or vomiting. She states she is doing well at home. Progress of Wound: Left sacral ulcer is beefy pink. The edges of her ulcer are not as thick after using the Misonix curette last week. Mahnaz wound is clear. Objective Data Objective Data Vital Signs: Vital Signs Temp Pulse Resp BP 98.4 F 72 18 157/72 H 01/31/23 10:18 01/31/23 10:18 01/31/23 10:18 01/31/23 10:18 Weight: 124 lb Body Mass Index (BMI) 20.0 Charges/Coding Procedures Integumentary [id number]: [id number] Dana subq tissue 20 sq cm/< Debridement Note Debridement Note Wound debrided: Sacral ulcer Laterality: Left Wound Grade/Stage: Stage IV Type of Debridement: Excisional debridement Anesthesia Used: 4% Lidocaine Solution and Cetacaine Depth: Down to and including healthy tissue and in the subcutaneous layer Percentage of wound debrided: 100 Instrument Used: 5mm curette Tissue Removed: Devitalized tissue and slough Severity: Fat Layer Exposed Amount of bleeding with debridement: Mild Bleeding Controlled with: Pressure, Compression and gauze and Silver Nitrate (small area on right side of ulcer) Patient tolerated procedure: Patient tolerated procedure well Post-Debridement Measurements and Additional Note: Post-Debridement Measurements/Treatment - Nurse 1 - General Ulcer Assessment Start: 01/10/23 10:23 Freq: Status: Active Protocol: WC.LOWLISSA Activity Type Activity Date Activity User E-sign Co-sign Detail Recorded Client Recorded Date Recorded By Document 01/10/23 10:24 DL [id number] 01/10/23 10:30 DL Document 01/17/23 10:20 PL [id number] 01/17/23 10:23 PL Document 01/24/23 10:23 PL [id number] 01/24/23 10:32 PL Document 01/31/23 10:18 PL [id number] 01/31/23 10:21 PL 01/10/23 01/17/23 01/24/23 10:24 10:20 10:23 - Today's Visit Information Type of service Follow-up Visit Follow-up Visit Follow-up Visit (Physician/DIRECTOR LIFE SCIENCES (Physician/DIRECTOR LIFE SCIENCES (Physician/DIRECTOR LIFE [employer]ES ) ) ) Arrival Mode Ambulatory, Ambulatory, Ambulatory, Walker Walker Walker Transfer Assistance None None None Patient Identification Verified (Name & Yes Yes Yes ) Patient Requires Transmission-Based No No No Precautions Safety Precautions NA NA Height and Weight Body Mass Index (BMI) 20.0 20.0 20.0 BMI Classification Normal Normal Normal Vital Signs Temperature (97.8 F-99.1 F) 97.8 F 98.5 F 98.6 F Temperature Source Temporal Temporal Temporal Pulse Rate (60-100) 75 74 84 Pulse Location Monitor Respiratory Rate (12-18) 20 H 18 18 Respiratory rate source Observation Blood Pressure (90/60-120/80) 149/75 H 148/76 H 150/79 H Blood Pressure Mean (mm Hg) 99 100 102 Source Monitor History Since Last Visit- (Skip if this is Patient's initial visit) Have you changed medications since your No No No last visit? Any new allergies or adverse reactions No No No Had a fall/change in ADL's that may No No No increase risk of falls Signs or symptoms of abuse and/or No No No neglect since last visit Have you been in the hospital since your No No No last visit? Has dressing in place as prescribed Yes Yes Yes Has compression in place as prescribed N/A N/A N/A Has offloadiing in place as prescribed Yes N/A N/A Experienced any changes in pain level or No No No management Pain Scale: 0-10 Numeric Is Patient Pain Free? Yes Yes Yes 01/31/23 10:18 - Today's Visit Information Type of service Follow-up Visit (Physician/[employer] ) Arrival Mode Ambulatory, Walker Transfer Assistance None Patient Identification Verified (Name & Yes ) Patient Requires Transmission-Based No Precautions Safety Precautions Height and Weight Body Mass Index (BMI) 20.0 BMI Classification Normal Vital Signs Temperature (97.8 F-99.1 F) 98.4 F Temperature Source Temporal Pulse Rate (60-100) 72 Pulse Location Respiratory Rate (12-18) 18 Respiratory rate source Blood Pressure (90/60-120/80) 157/72 H Blood Pressure Mean (mm Hg) 100 Source History Since Last Visit- (Skip if this is Patient's initial visit) Have you changed medications since your No last visit? Any new allergies or adverse reactions No Had a fall/change in ADL's that may No increase risk of falls Signs or symptoms of abuse and/or No neglect since last visit Have you been in the hospital since your No last visit? Has dressing in place as prescribed Yes Has compression in place as prescribed N/A Has offloadiing in place as prescribed N/A Experienced any changes in pain level or No management Pain Scale: 0-10 Numeric Is Patient Pain Free? Yes - Nurse 1 - General Ulcer Measurement Start: 01/10/23 10:23 Freq: Status: Active Protocol: Activity Type Activity Date Activity User E-sign Co-sign Detail Recorded Client Recorded Date Recorded By Document 01/10/23 10:24 DL [id number] 01/10/23 10:30 DL 01/10/23 10:24 Wound Center Nurse 1 1. sacral -Current Size (cm) - Length 2.4 -Current Size (cm) - Width 0.9 -Current Size (cm) - Depth 0.2 -Total Square Cm 2.16 -Photo Taken Yes -Exudate Amt Small -Exudate Type Serosanguineous -Wound Margin Thickened & Rolled Under -Granulation Amt Large (67-100%) -Granulation Quality [place] -Necrosis Amt Small (1-33%) -Necrotic Tissue Type Adherent Slough -Structure Exposed N/A -Texture (Mahnaz-wound Skin Appearance) Scarring -Moisture (Mahnaz-wound Skin Appearance) No Abnormality -Color (Mahnaz-wound Skin Appearance) No Abnormality -Temperature (Mahnaz-wound Skin No Abnormality Appearance) (Pt Warm) -Tenderness on Palpation (Mahnaz-wound No Skin Appearance) -Ulcer Cleansing Soap and Water -Foul Odor after Cleansing No -Anesthetic Used 5% Lidocaine Gel WC - Nurse 2 - General Ulcer CM Notes Start: 01/10/23 10:23 Freq: Status: Active Protocol: Activity Type Activity Date Activity User E-sign Co-sign Detail Recorded Client Recorded Date Recorded By Document 01/10/23 11:44 PL [id number] 01/10/23 11:45 PL Document 01/17/23 10:43 [id number] 01/17/23 10:49 Edit Result 01/17/23 10:43 JF (1) [id number] 01/18/23 07:42 Document 01/24/23 10:47 [id number] 01/24/23 10:49 Document 01/31/23 10:37 [id number] 01/31/23 10:40 JF (1) 1. sacral - Clinical Debridement Subcutaneous => Muscle / Fascia - Tissue Removed Subcutaneous => Muscle,Fascia - Debridement - Subq, 1st 20sq cm Yes => No - Debridement - Muscle / Fascia, 1st => Yes 20sq cm 01/10/23 01/17/23 01/24/23 11:44 10:43 10:47 Wound Center Nurse 2 1. sacral -Time 10:34 10:43 10:47 -Correct Patient Yes Yes Yes -Correct Side, Site, Position Yes Yes Yes -Correct Procedure Yes Yes Yes -Procedure Performed Yes Yes Yes -Type of Procedure Debridement Debridement Debridement -Clinical Debridement Subcutaneous Muscle / Fascia Subcutaneous -Tissue Removed Subcutaneous Muscle,Fascia Subcutaneous -Post Debridement (cm) - Length 3.0 3.5 3.5 -Post Debridement (cm) - Width 1.7 2.2 2.0 -Post Debridement (cm) - Depth 0.2 0.2 0.2 -Total Square (Post) (cm) 5.10 7.70 7.00 -Area of Debridement (cm) - Length 3.0 3.5 3.5 -Area of Debridement (cm) - Width 1.7 2.2 2.0 -Total Square (Area) (cm) 5.10 7.70 7.00 -Tunneling No No No -Undermining/Tunneling No No No -Circular Undermining No No No -Wound/Ulcer Outcome Not Healed Not Healed Not Healed -Ulcer Cleansing Rinsed/ Rinsed/ Rinsed/ Irrigated with Irrigated with Irrigated with Saline Saline Saline -Foul Odor after Cleansing No No No -Bioengineered Tissue No No No -Bleeding Controlled with Pressure Pressure Pressure -Treatment Response Procedure Procedure Procedure Tolerated Well Tolerated Well Tolerated Well -Offloading No No -Debridement - Subq, 1st 20sq cm Yes No Yes -Debridement - Muscle / Fascia, 1st Yes 20sq cm Pain Scale: 0-10 Numeric Is Patient Pain Free? Yes Yes Yes 01/31/23 10:37 Wound Center Nurse 2 1. sacral -Time 10:38 -Correct Patient Yes -Correct Side, Site, Position Yes -Correct Procedure Yes -Procedure Performed Yes -Type of Procedure Debridement -Clinical Debridement Subcutaneous -Tissue Removed Subcutaneous -Post Debridement (cm) - Length 4.0 -Post Debridement (cm) - Width 1.7 -Post Debridement (cm) - Depth 0.2 -Total Square (Post) (cm) 6.80 -Area of Debridement (cm) - Length 4.0 -Area of Debridement (cm) - Width 1.7 -Total Square (Area) (cm) 6.80 -Tunneling No -Undermining/Tunneling No -Circular Undermining No -Wound/Ulcer Outcome Not Healed -Ulcer Cleansing Rinsed/ Irrigated with Saline -Foul Odor after Cleansing No -Bioengineered Tissue No -Bleeding Controlled with Pressure -Treatment Response Procedure Tolerated Well -Offloading No -Debridement - Subq, 1st 20sq cm Yes -Debridement - Muscle / Fascia, 1st 20sq cm Pain Scale: 0-10 Numeric Is Patient Pain Free? Yes - Nurse 3 - General Ulcer D/C NN Start: 01/10/23 10:23 Freq: Status: Active Protocol: Activity Type Activity Date Activity User E-sign Co-sign Detail Recorded Client Recorded Date Recorded By Document 01/17/23 10:49 [id number] 01/17/23 10:49 Document 01/24/23 10:49 [id number] 01/24/23 10:50 Document 01/31/23 10:49 DL Desktop 01/31/23 10:50 DL 01/17/23 01/24/23 01/31/23 10:49 10:49 10:49 Wound Care Center Nurse 3 1. sacral -Ulcer Cleansing Rinsed/ Rinsed/ Rinsed/ Irrigated with Irrigated with Irrigated with Saline Saline Saline -Foul Odor after Cleansing No No No -Primary Dressing Applied Silvercel Silvercel Fibracol Plus 4x4 -Primary Dressing Covered/Secured with Dry Gauze, Secured with Dry Gauze, Secured with Tape Secured with Tape Tape -Other Covering abd pads -Fibracol Plus 4x4 1 -Silvercel 1 1 Treatment Response Procedure Tolerated Well Pain Scale: 0-10 Numeric Is Patient Pain Free? Yes Yes Yes - Visit Discharge Discharge Condition Stable Stable Stable Ambulatory Status Ambulatory, Ambulatory, Ambulatory, Walker Walker Walker Transportation Private Auto Private Auto Private Auto Medication Reconcilliation completed & Yes Yes provided to patient/care provider Clinical Summary of Care Provided Yes Yes Facility Type Home Health Orders Sent Yes Assessment/Plan Assessment/Plan (1) Pressure ulcer of sacral region, stage 4: CODE(S): L89.154 - Pressure ulcer of sacral region, stage 4 (2) Rheumatoid arthritis: CODE(S): M06.9 - Rheumatoid arthritis, unspecified (3) Debility: CODE(S): R53.81 - Other malaise PLAN: Plan Patient evaluated at the wound center today. Used the Lynxx Innovationsonix Aquasonic curette last week, able to remove the thickened scar tissue surrounding the ulcer. Hopefully this will help boost her wound healing that has slowed down. If there is not much improvement in the next several weeks, then she will need to be referred to Dr. Lee for a possible operative debridement. Wound care - Change her dressing to Fibrocol+ topped with gauze or ABD to be changed 3 times per week and as needed. Stop washing ulcer and mahnaz wound with chlorhexidine wash at each dressing change to see if this is having an impact on her wound healing. Wound culture obtained 12/27/22 which was positive for Corynebacterium striatum which is considered a skin contaminant which there is no need to treat with antibiotics. Wound culture obtained 11/01/22 which was positive for Pseudomonas aeruginosa (very rare amount), Corynebacterium striatum, and Anaerobic cocci. She is allergic to the oral options to treat the Pseudomonas. I spoke with the hospital pharmacist Audra Martinez, on 11/08/22, about her wound culture and she stated that fluoroquinolones are the only option to treat pseudomonas. I discussed with the patient about referring her to ID for further evaluation and treatment but she absolutely refuses to see him because when she was hospitalized, he disc ussed the possibility of her needing a colostomy and that caused her stress. I would like to have her do dakin's moistened gauze daily to treat this, but the patient is not able to have daily dressing changes due to no help when home health is not present and she is not able to change the dressing herself. Will have her washing the ulcer with chlorhexidine at the time of the dressing change. She completed the Diflucan for her positive operative fungal cultures. Labs drawn on 10/13/22: Total Bili 0.30, AST 17, ALT 20, Alk Phos 151. On 07/25/22 Alk Phos 152. Prealbumin 12.8 on 05/23/22. Encouraged increase protein supplementation. She state she is drinking Tommy 1-2 times per day in addition to her increase in dietary protein. Follow 1 week. Call or come in sooner if develop any questions or concerns.
[2023-02-07 10:14] VITALS: BP 155/81; PULSE 73; RESP 20; TEMP 36.1
--- NOTE | 2023-02-07 12:31 | PCM.WC.PN ---
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 Surgery 05/22/[address] Lee for Excision necrotic left sacral pressure sore, Stage IV, with partial ostectomy for osteomyelitis. Operative tissue cultures positive for Eschericha coli, Streptococcus sanguinis, Corynebacterium amycolatum, Provotella oralis, Anaerobic cocci, and most recently Fernanda albicans and Aspirgillus fumigatus. Operative bone culture positive for Provotella disiens and Fernanda albicans. She was treated with Levaquin and Augmentin. She developed muscle pain so the Levaquin was switched to Doxycycline. The fungal cultures just recently came back and we will start her on Diflucan. Wound culture obtained 11/01/22 which was positive for Pseudomonas aeruginosa (very rare). Corynebacterium striatum and Anaerobic cocci. With her multiple drug allergies, there is not an oral antibiotic to treat the Pseudomonas, but it is rare, so will start cleansing with chlorhexidine at the time of the dressing change 3 times per week and start her on Augmentin and probiotic. Wound culture from 12/27/22 positive for Corynebacterium striatum which is a skin contaminant. Wound care is Fibrocol+ to be changed 3 times per week and as needed. She has home health to assist with the dressing changes. Today she denies fever, chills, nausea or vomiting. She states she is doing well at home. Progress of Wound: Left sacral ulcer is beefy pink. The edges of her ulcer are stable. Objective Data Objective Data Vital Signs: Vital Signs Temp Pulse Resp BP 96.9 F L 73 20 H 155/81 H 02/07/23 10:14 02/07/23 10:14 02/07/23 10:14 02/07/23 10:14 Weight: 124 lb Body Mass Index (BMI) 20.0 Charges/Coding Procedures Integumentary [id number]: [id number] Dana subq tissue 20 sq cm/< Debridement Note Debridement Note Wound debrided: Sacral ulcer Laterality: Left Wound Grade/Stage: Stage IV Type of Debridement: Excisional debridement Anesthesia Used: 5% Lidocaine Gel Depth: Down to and including healthy tissue and in the subcutaneous layer Percentage of wound debrided: 100 Instrument Used: - (Misonix aqua curette debrided) Tissue Removed: Devitalized tissue and slough Severity: Fat Layer Exposed Amount of bleeding with debridement: Mild Bleeding Controlled with: Pressure, Compression and gauze and Silver Nitrate (small area on right side of ulcer) Patient tolerated procedure: Patient tolerated procedure well Debridement Free Text: Good bleeding obtained using the Misonix curette tip. Post-Debridement Measurements and Additional Note: Post-Debridement Measurements/Treatment - Nurse 1 - General Ulcer Assessment Start: 01/10/23 10:23 Freq: Status: Active Protocol: .CINDI Activity Type Activity Date Activity User E-sign Co-sign Detail Recorded Client Recorded Date Recorded By Document 01/10/23 10:24 DL [id number] 01/10/23 10:30 DL Document 01/17/23 10:20 PL [id number] 01/17/23 10:23 PL Document 01/24/23 10:23 PL [id number] 01/24/23 10:32 PL Document 01/31/23 10:18 PL [id number] 01/31/23 10:21 PL Document 02/07/23 10:14 DL [id number] 02/07/23 10:19 DL 01/10/23 01/17/23 01/24/23 10:24 10:20 10:23 - Today's Visit Information Type of service Follow-up Visit Follow-up Visit Follow-up Visit (Physician/REGULATORY PRODUCT MANAGER (Physician/REGULATORY PRODUCT MANAGER (Physician/REGULATORY PRODUCT MANAGER ) ) ) Arrival Mode Ambulatory, Ambulatory, Ambulatory, Walker Walker Walker Transfer Assistance None None None Patient Identification Verified (Name & Yes Yes Yes ) Patient Requires Transmission-Based No No No Precautions Safety Precautions NA NA Height and Weight Body Mass Index (BMI) 20.0 20.0 20.0 BMI Classification Normal Normal Normal Vital Signs Temperature (97.8 F-99.1 F) 97.8 F 98.5 F 98.6 F Temperature Source Temporal Temporal Temporal Pulse Rate (60-100) 75 74 84 Pulse Location Monitor Respiratory Rate (12-18) 20 H 18 18 Respiratory rate source Observation Blood Pressure (90/60-120/80) 149/75 H 148/76 H 150/79 H Blood Pressure Mean (mm Hg) 99 100 102 Source Monitor History Since Last Visit- (Skip if this is Patient's initial visit) Have you changed medications since your No No No last visit? Any new allergies or adverse reactions No No No Had a fall/change in ADL's that may No No No increase risk of falls Signs or symptoms of abuse and/or No No No neglect since last visit Have you been in the hospital since your No No No last visit? Has dressing in place as prescribed Yes Yes Yes Has compression in place as prescribed N/A N/A N/A Has offloadiing in place as prescribed Yes N/A N/A Experienced any changes in pain level or No No No management Pain Scale: 0-10 Numeric Is Patient Pain Free? Yes Yes Yes 01/31/23 02/07/23 10:18 10:14 WC - Today's Visit Information Type of service Follow-up Visit Follow-up Visit (Physician/REGULATORY PRODUCT MANAGER (Physician/REGULATORY PRODUCT MANAGER ) ) Arrival Mode Ambulatory, Ambulatory, Walker Walker Transfer Assistance None None Patient Identification Verified (Name & Yes Yes ) Patient Requires Transmission-Based No No Precautions Safety Precautions Height and Weight Body Mass Index (BMI) 20.0 20.0 BMI Classification Normal Normal Vital Signs Temperature (97.8 F-99.1 F) 98.4 F 96.9 F L Temperature Source Temporal Temporal Pulse Rate (60-100) 72 73 Pulse Location Monitor Respiratory Rate (12-18) 18 20 H Respiratory rate source Observation Blood Pressure (90/60-120/80) 157/72 H 155/81 H Blood Pressure Mean (mm Hg) 100 105 Source Monitor History Since Last Visit- (Skip if this is Patient's initial visit) Have you changed medications since your No No last visit? Any new allergies or adverse reactions No No Had a fall/change in ADL's that may No No increase risk of falls Signs or symptoms of abuse and/or No No neglect since last visit Have you been in the hospital since your No last visit? Has dressing in place as prescribed Yes Yes Has compression in place as prescribed N/A N/A Has offloadiing in place as prescribed N/A Yes Experienced any changes in pain level or No No management Pain Scale: 0-10 Numeric Is Patient Pain Free? Yes Yes BRADEN - Nurse 1 - General Ulcer Measurement Start: 01/10/23 10:23 Freq: Status: Active Protocol: Activity Type Activity Date Activity User E-sign Co-sign Detail Recorded Client Recorded Date Recorded By Document 01/10/23 10:24 DL [id number] 01/10/23 10:30 DL Document 02/07/23 10:14 DL [id number] 02/07/23 10:19 DL 01/10/23 02/07/23 10:24 10:14 Wound Center Nurse 1 1. sacral -Current Size (cm) - Length 2.4 3.4 -Current Size (cm) - Width 0.9 1.1 -Current Size (cm) - Depth 0.2 0.2 -Total Square Cm 2.16 3.74 -Photo Taken Yes -Exudate Amt Small Medium -Exudate Type Serosanguineous Serosanguineous -Wound Margin Thickened & Thickened & Rolled Under Rolled Under -Granulation Amt Large (67-100%) Large (67-100%) -Granulation Quality [place] Pale,[place],Red -Necrosis Amt Small (1-33%) Small (1-33%) -Necrotic Tissue Type Adherent Slough Adherent Slough -Structure Exposed N/A N/A -Texture (Mahnaz-wound Skin Appearance) Scarring Scarring -Moisture (Mahnaz-wound Skin Appearance) No Abnormality No Abnormality -Color (Mahnaz-wound Skin Appearance) No Abnormality No Abnormality -Temperature (Mahnaz-wound Skin No Abnormality No Abnormality Appearance) (Pt Warm) (Pt Warm) -Tenderness on Palpation (Mahnaz-wound No No Skin Appearance) -Ulcer Cleansing Soap and Water Rinsed/ Irrigated with Saline -Foul Odor after Cleansing No No -Anesthetic Used 5% Lidocaine 5% Lidocaine Gel Gel BRADEN - Nurse 2 - General Ulcer CM Notes Start: 01/10/23 10:23 Freq: Status: Active Protocol: Activity Type Activity Date Activity User E-sign Co-sign Detail Recorded Client Recorded Date Recorded By Document 01/10/23 11:44 PL [id number] 01/10/23 11:45 PL Document 01/17/23 10:43 [id number] 01/17/23 10:49 Edit Result 01/17/23 10:43 JF (1) [id number] 01/18/23 07:42 Document 01/24/23 10:47 [id number] 01/24/23 10:49 Document 01/31/23 10:37 [id number] 01/31/23 10:40 Document 02/07/23 10:35 [id number] 02/07/23 10:36 JF (1) 1. sacral - Clinical Debridement Subcutaneous => Muscle / Fascia - Tissue Removed Subcutaneous => Muscle,Fascia - Debridement - Subq, 1st 20sq cm Yes => No - Debridement - Muscle / Fascia, 1st => Yes 20sq cm 01/10/23 01/17/23 01/24/23 11:44 10:43 10:47 Wound Center Nurse 2 1. sacral -Time 10:34 10:43 10:47 -Correct Patient Yes Yes Yes -Correct Side, Site, Position Yes Yes Yes -Correct Procedure Yes Yes Yes -Procedure Performed Yes Yes Yes -Type of Procedure Debridement Debridement Debridement -Clinical Debridement Subcutaneous Muscle / Fascia Subcutaneous -Tissue Removed Subcutaneous Muscle,Fascia Subcutaneous -Post Debridement (cm) - Length 3.0 3.5 3.5 -Post Debridement (cm) - Width 1.7 2.2 2.0 -Post Debridement (cm) - Depth 0.2 0.2 0.2 -Total Square (Post) (cm) 5.10 7.70 7.00 -Area of Debridement (cm) - Length 3.0 3.5 3.5 -Area of Debridement (cm) - Width 1.7 2.2 2.0 -Total Square (Area) (cm) 5.10 7.70 7.00 -Tunneling No No No -Undermining/Tunneling No No No -Circular Undermining No No No -Wound/Ulcer Outcome Not Healed Not Healed Not Healed -Ulcer Cleansing Rinsed/ Rinsed/ Rinsed/ Irrigated with Irrigated with Irrigated with Saline Saline Saline -Foul Odor after Cleansing No No No -Bioengineered Tissue No No No -Bleeding Controlled with Pressure Pressure Pressure -Treatment Response Procedure Procedure Procedure Tolerated Well Tolerated Well Tolerated Well -Offloading No No -Debridement - Subq, 1st 20sq cm Yes No Yes -Debridement - Muscle / Fascia, 1st Yes 20sq cm Pain Scale: 0-10 Numeric Is Patient Pain Free? Yes Yes Yes 01/31/23 02/07/23 10:37 10:35 Wound Center Nurse 2 1. sacral -Time 10:38 10:35 -Correct Patient Yes Yes -Correct Side, Site, Position Yes Yes -Correct Procedure Yes Yes -Procedure Performed Yes Yes -Type of Procedure Debridement Debridement -Clinical Debridement Subcutaneous Subcutaneous -Tissue Removed Subcutaneous Subcutaneous -Post Debridement (cm) - Length 4.0 3.8 -Post Debridement (cm) - Width 1.7 1.8 -Post Debridement (cm) - Depth 0.2 0.2 -Total Square (Post) (cm) 6.80 6.84 -Area of Debridement (cm) - Length 4.0 3.8 -Area of Debridement (cm) - Width 1.7 1.8 -Total Square (Area) (cm) 6.80 6.84 -Tunneling No No -Undermining/Tunneling No No -Circular Undermining No No -Wound/Ulcer Outcome Not Healed Not Healed -Ulcer Cleansing Rinsed/ Rinsed/ Irrigated with Irrigated with Saline Saline -Foul Odor after Cleansing No No -Bioengineered Tissue No No -Bleeding Controlled with Pressure Pressure -Treatment Response Procedure Procedure Tolerated Well Tolerated Well -Offloading No No -Debridement - Subq, 1st 20sq cm Yes Yes -Debridement - Muscle / Fascia, 1st 20sq cm Pain Scale: 0-10 Numeric Is Patient Pain Free? Yes Yes - Nurse 3 - General Ulcer D/C NN Start: 01/10/23 10:23 Freq: Status: Active Protocol: Activity Type Activity Date Activity User E-sign Co-sign Detail Recorded Client Recorded Date Recorded By Document 01/17/23 10:49 [id number] 01/17/23 10:49 Document 01/24/23 10:49 [id number] 01/24/23 10:50 JF Document 01/31/23 10:49 DL Desktop 01/31/23 10:50 DL Document 02/07/23 10:45 DL [id number] 02/07/23 10:48 DL 01/17/23 01/24/23 01/31/23 10:49 10:49 10:49 Wound Care Center Nurse 3 1. sacral -Ulcer Cleansing Rinsed/ Rinsed/ Rinsed/ Irrigated with Irrigated with Irrigated with Saline Saline Saline -Foul Odor after Cleansing No No No -Primary Dressing Applied Silvercel Silvercel Fibracol Plus 4x4 -Primary Dressing Covered/Secured with Dry Gauze, Secured with Dry Gauze, Secured with Tape Secured with Tape Tape -Other Covering abd pads -Fibracol Plus 4x4 1 -Silvercel 1 1 Treatment Response Procedure Tolerated Well Pain Scale: 0-10 Numeric Is Patient Pain Free? Yes Yes Yes WC - Visit Discharge Discharge Condition Stable Stable Stable Ambulatory Status Ambulatory, Ambulatory, Ambulatory, Walker Walker Walker Transportation Private Auto Private Auto Private Auto Medication Reconcilliation completed & Yes Yes provided to patient/care provider Clinical Summary of Care Provided Yes Yes Facility Type Home Health Orders Sent Yes 02/07/23 10:45 Wound Care Center Nurse 3 1. sacral -Ulcer Cleansing Rinsed/ Irrigated with Saline -Foul Odor after Cleansing No -Primary Dressing Applied Fibracol Plus 4x4 -Primary Dressing Covered/Secured with Dry Gauze, Secured with Tape -Other Covering -Fibracol Plus 4x4 1 -Silvercel Treatment Response Procedure Tolerated Well Pain Scale: 0-10 Numeric Is Patient Pain Free? Yes WC - Visit Discharge Discharge Condition Stable Ambulatory Status Ambulatory, Walker Transportation Private Auto Medication Reconcilliation completed & provided to patient/care provider Clinical Summary of Care Provided Facility Type Orders Sent Assessment/Plan Assessment/Plan (1) Pressure ulcer of sacral region, stage 4: CODE(S): L89.154 - Pressure ulcer of sacral region, stage 4 (2) Rheumatoid arthritis: CODE(S): M06.9 - Rheumatoid arthritis, unspecified (3) Debility: CODE(S): R53.81 - Other malaise PLAN: Plan Patient evaluated at the wound center today. Used the Misonix Aquasonic curette, able to remove some of the thickened scar tissue surrounding the ulcer. If there is not much improvement in the next several weeks, then we will return to the discussion of her receiving a referred to Dr. Lee for a possible operative debridement. Wound care - Fibrocol+ topped with gauze or ABD to be changed 3 times per week and as needed. She has home health to assist with her dressing changes. Wound culture obtained 12/27/22 which was positive for Corynebacterium striatum which is considered a skin contaminant which there is no need to treat with antibiotics. Wound culture obtained 11/01/22 which was positive for Pseudomonas aeruginosa (very rare amount), Corynebacterium striatum, and Anaerobic cocci. She is allergic to the oral options to treat the Pseudomonas. I spoke with the hospital pharmacist Audra Martinez, on 11/08/22, about her wound culture and she stated that fluoroquinolones are the only option to treat pseudomonas. I discussed with the patient about referring her to ID for further evaluation and treatment but she absolutely refuses to see him because when she was hospitalized, he discussed the possibility of her needing a colostomy and that caused her stress. I would like to have her do dakin's moistened gauze daily to treat this, but the patient is not able to have daily dressing changes due to no help when home health is not present and she is not able to change the dressing herself. Will have her washing the ulcer with chlorhexidine at the time of the dressing change. She completed the Diflucan for her positive operative fungal cultures. Labs drawn on 10/13/22: Total Bili 0.30, AST 17, ALT 20, Alk Phos 151. On 07/25/22 Alk Phos 152. Prealbumin 12.8 on 05/23/22. Encouraged increase protein supplementation. She state she is drinking Tommy 1-2 times per day in addition to her increase in dietary protein. Follow 1 week. Call or come in sooner if develop any questions or concerns.
== END 2023-02-08 23:59 | disposition home or self-care (01) ==
LOC: WC 10:15
PROVIDERS: PCP Family Medicine; Referring Provider Family Medicine; Visit Provider Nurse Practitioner Family
DX: L89.154 Pressure ulcer of sacral region, stage 4 (principal); M06.9 Rheumatoid arthritis, unspecified; R53.81 Other malaise; Z79.82 Long term (current) use of aspirin; Z79.899 Other long term (current) drug therapy; Z87.39 Personal history of other diseases of the musculoskeletal system and connective tissue
CPT/HCPCS: 11042; 11043

== ENCOUNTER 2023-03-07 10:15 | Outpatient (RCR) | payer MEDICARE, OTHER, SELFPAY ==
[2023-02-09 00:27] VITALS: BP 155/81; PULSE 73; RESP 20; TEMP 36.1
[2023-02-14 10:15] VITALS: BP 142/79; PULSE 88; RESP 20; TEMP 36.1
--- NOTE | 2023-02-14 12:34 | PCM.WC.PN ---
History of Present Illness Date of Service: 02/14/23 Chief Complaint: Left sacral ulcer History of Wound: 73 year old female with below past medical history suffered fall from second story, hospitalized for multi trauma, underwent left tibia intramedullary nail fixation, right hip anterograde intramedullary nail, complicated by encephalopathy from urinary tract infection, stage 4 left sacral pressure ulcer with chronic osteomyelitis, admitted to TCU on 04/17/22 with debility, there for rehabilitation, strengthening, prior to discharge home alone on 06/25/22 with home health/PT/OT. Surgery 05/22/[address] Lee for Excision necrotic left sacral pressure sore, Stage IV, with partial ostectomy for osteomyelitis. Operative tissue cultures positive for Eschericha coli, Streptococcus sanguinis, Corynebacterium amycolatum, Provotella oralis, Anaerobic cocci, and most recently Fernanda albicans and Aspirgillus fumigatus. Operative bone culture positive for Provotella disiens and Fernanda albicans. She was treated with Levaquin and Augmentin. She developed muscle pain so the Levaquin was switched to Doxycycline. The fungal cultures just recently came back and we will start her on Diflucan. Wound culture obtained 11/01/22 which was positive for Pseudomonas aeruginosa (very rare). Corynebacterium striatum and Anaerobic cocci. With her multiple drug allergies, there is not an oral antibiotic to treat the Pseudomonas, but it is rare, so will start cleansing with chlorhexidine at the time of the dressing change 3 times per week and start her on Augmentin and probiotic. Wound culture from 12/27/22 positive for Corynebacterium striatum which is a skin contaminant. Wound care is Fibrocol+ to be changed 3 times per week and as needed. She has home health to assist with the dressing changes. Today she denies fever, chills, nausea or vomiting. She states she is doing well at home. Progress of Wound: Left sacral ulcer is beefy pink. The edges of her ulcer are still thickened. Ulcer is stable, not improving. Objective Data Objective Data Vital Signs: Vital Signs Temp Pulse Resp BP 96.9 F L 88 20 H 142/79 H 02/14/23 10:15 02/14/23 10:15 02/14/23 10:15 02/14/23 10:15 Weight: 124 lb Body Mass Index (BMI) 20.0 Charges/Coding Procedures Integumentary 111xxx-113xx: 72461 Dana subq tissue 20 sq cm/< Debridement Note Debridement Note Wound debrided: Sacral ulcer Laterality: Left Wound Grade/Stage: Stage IV Type of Debridement: Excisional debridement Anesthesia Used: 5% Lidocaine Gel Depth: Down to and including healthy tissue and in the subcutaneous layer Percentage of wound debrided: 100 Instrument Used: - (Misonix aqua curette debrided) Tissue Removed: Devitalized tissue and slough Severity: Fat Layer Exposed Amount of bleeding with debridement: Mild Bleeding Controlled with: Pressure and Compression and gauze Patient tolerated procedure: Patient tolerated procedure well Debridement Free Text: Good bleeding obtained using the Misonix curette tip. Post-Debridement Measurements and Additional Note: Post-Debridement Measurements/Treatment WC - Nurse 1 - General Ulcer Assessment Start: 02/14/23 10:12 Freq: Status: Active Protocol: [email or web address] Activity Type Activity Date Activity User E-sign Co-sign Detail Recorded Client Recorded Date Recorded By Document 02/14/23 10:15 DL [id number] 02/14/23 10:21 DL 02/14/23 10:15 WC - Today's Visit Information Type of service Follow-up Visit (Physician/ACTOR UNDERSTUDY ) Arrival Mode Ambulatory, Walker Transfer Assistance None Patient Identification Verified (Name & Yes ) Patient Requires Transmission-Based No Precautions Height and Weight Body Mass Index (BMI) 20.0 BMI Classification Normal Vital Signs Temperature (97.8 F-99.1 F) 96.9 F L Temperature Source Temporal Pulse Rate (60-100) 88 Pulse Location Monitor Respiratory Rate (12-18) 20 H Respiratory rate source Observation Blood Pressure (90/60-120/80) 142/79 H Blood Pressure Mean (mm Hg) 100 Source Monitor History Since Last Visit- (Skip if this is Patient's initial visit) Have you changed medications since your No last visit? Any new allergies or adverse reactions No Had a fall/change in ADL's that may No increase risk of falls Signs or symptoms of abuse and/or No neglect since last visit Have you been in the hospital since your No last visit? Has dressing in place as prescribed Yes Has compression in place as prescribed N/A Has offloadiing in place as prescribed Yes Experienced any changes in pain level or No management Pain Scale: 0-10 Numeric Is Patient Pain Free? Yes - Nurse 1 - General Ulcer Measurement Start: 02/14/23 10:12 Freq: Status: Active Protocol: Activity Type Activity Date Activity User E-sign Co-sign Detail Recorded Client Recorded Date Recorded By Document 02/14/23 10:15 JANELL [id number] 02/14/23 10:21 JANELL 02/14/23 10:15 Wound Center Nurse 1 1. sacral -Current Size (cm) - Length 3.6 -Current Size (cm) - Width 1.8 -Current Size (cm) - Depth 0.2 -Total Square Cm 6.48 -Exudate Amt Small -Exudate Type Serosanguineous -Wound Margin Thickened & Rolled Under -Granulation Amt Large (67-100%) -Granulation Quality Red -Necrosis Amt Small (1-33%) -Necrotic Tissue Type Adherent Slough -Structure Exposed N/A -Texture (Mahnaz-wound Skin Appearance) Scarring -Moisture (Mahnaz-wound Skin Appearance) No Abnormality -Color (Mahnaz-wound Skin Appearance) No Abnormality -Temperature (Mahnaz-wound Skin No Abnormality Appearance) (Pt Warm) -Tenderness on Palpation (Mahnaz-wound No Skin Appearance) -Ulcer Cleansing Soap and Water -Foul Odor after Cleansing No -Anesthetic Used 5% Lidocaine Gel - Nurse 2 - General Ulcer CM Notes Start: 02/14/23 10:12 Freq: Status: Active Protocol: Activity Type Activity Date Activity User E-sign Co-sign Detail Recorded Client Recorded Date Recorded By Document 02/14/23 10:32 HUMERA [id number] 02/14/23 10:38 HUMERA 02/14/23 10:32 Wound Center Nurse 2 -Time 10:33 -Correct Patient Yes -Correct Side, Site, Position Yes -Correct Procedure Yes -Procedure Performed Yes -Type of Procedure Debridement -Clinical Debridement Subcutaneous -Tissue Removed Subcutaneous -Post Debridement (cm) - Length 3.8 -Post Debridement (cm) - Width 2.0 -Post Debridement (cm) - Depth 0.2 -Total Square (Post) (cm) 7.60 -Area of Debridement (cm) - Length 3.8 -Area of Debridement (cm) - Width 2.0 -Total Square (Area) (cm) 7.60 -Tunneling No -Undermining/Tunneling No -Circular Undermining No -Wound/Ulcer Outcome Not Healed -Ulcer Cleansing Rinsed/ Irrigated with Saline -Foul Odor after Cleansing No -Bioengineered Tissue No -Bleeding Controlled with Pressure -Treatment Response Procedure Tolerated Well -Offloading No -Debridement - Subq, 1st 20sq cm Yes Pain Scale: 0-10 Numeric Is Patient Pain Free? Yes - Nurse 3 - General Ulcer D/C NN Start: 02/14/23 10:12 Freq: Status: Active Protocol: Activity Type Activity Date Activity User E-sign Co-sign Detail Recorded Client Recorded Date Recorded By Document 02/14/23 10:51 KW [id number] 02/14/23 10:52 KW 02/14/23 10:51 Wound Care Center Nurse 3 1. sacral -Ulcer Cleansing Rinsed/ Irrigated with Saline -Primary Dressing Applied Fibracol Plus 4x4 -Primary Dressing Covered/Secured with Dry Gauze, Secured with Tape -Fibracol Plus 4x4 1 Pain Scale: 0-10 Numeric Is Patient Pain Free? Yes WC - Visit Discharge Discharge Condition Stable Transportation Private Auto Medication Reconcilliation completed & No provided to patient/care provider Clinical Summary of Care Provided Yes Assessment/Plan Assessment/Plan (1) Pressure ulcer of sacral region, stage 4: CODE(S): L89.154 - Pressure ulcer of sacral region, stage 4 (2) Rheumatoid arthritis: CODE(S): M06.9 - Rheumatoid arthritis, unspecified (3) Debility: CODE(S): R53.81 - Other malaise PLAN: Plan Patient evaluated at the wound center today. Used the Dasdakonix Aquasonic curette, able to remove some of the thickened scar tissue surrounding the ulcer. Wound care - Fibrocol+ topped with gauze or ABD to be changed 3 times per week and as needed. She has home health to assist with her dressing changes. She really wants to avoid any further surgery so she wound benefit from an advanced wound healing product such as Epifix to help expedite her healing. Wound culture obtained 12/27/22 which was positive for Corynebacterium striatum which is considered a skin contaminant which there is no need to treat with antibiotics. Wound culture obtained 11/01/22 which was positive for Pseudomonas aeruginosa (very rare amount), Corynebacterium striatum, and Anaerobic cocci. She is allergic to the oral options to treat the Pseudomonas. I spoke with the hospital pharmacist Audra Martinez, on 11/08/22, about her wound culture and she stated that fluoroquinolones are the only option to treat pseudomonas. I discussed with the patient about referring her to ID for further evaluation and treatment but she absolutely refuses to see him because when she was hospitalized, he discussed the possibility of her needing a colostomy and that caused her stress. I would like to have her do dakin's moistened gauze daily to treat this, but the patient is not able to have daily dressing changes due to no help when home health is not present and she is not able to change the dressing herself. Will have her washing the ulcer with chlorhexidine at the time of the dressing change. She completed the Diflucan for her positive operative fungal cultures. Labs drawn on 10/13/22: Total Bili 0.30, AST 17, ALT 20, Alk Phos 151. On 07/25/22 Alk Phos 152. Prealbumin 12.8 on 05/23/22. Encouraged increase protein supplementation. She state she is drinking Tommy 1-2 times per day in addition to her increase in dietary protein. Follow 1 week. Call or come in sooner if develop any questions or concerns.
[2023-02-21 10:13] VITALS: BP 142/83; PULSE 85; RESP 20; TEMP 36.2
--- NOTE | 2023-02-21 10:31 | PCM.WC.PN ---
History of Present Illness Date of Service: 02/21/23 Chief Complaint: Left sacral ulcer History of Wound: 73 year old female with below past medical history suffered fall from second story, hospitalized for multi trauma, underwent left tibia intramedullary nail fixation, right hip anterograde intramedullary nail, complicated by encephalopathy from urinary tract infection, stage 4 left sacral pressure ulcer with chronic osteomyelitis, admitted to TCU on 04/17/22 with debility, there for rehabilitation, strengthening, prior to discharge home alone on 06/25/22 with home health/PT/OT. Surgery 05/22/[address] Lee for Excision necrotic left sacral pressure sore, Stage IV, with partial ostectomy for osteomyelitis. Operative tissue cultures positive for Eschericha coli, Streptococcus sanguinis, Corynebacterium amycolatum, Provotella oralis, Anaerobic cocci, and most recently Fernanda albicans and Aspirgillus fumigatus. Operative bone culture positive for Provotella disiens and Fernanda albicans. She was treated with Levaquin and Augmentin. She developed muscle pain so the Levaquin was switched to Doxycycline. The fungal cultures just recently came back and we will start her on Diflucan. Wound culture obtained 11/01/22 which was positive for Pseudomonas aeruginosa (very rare). Corynebacterium striatum and Anaerobic cocci. With her multiple drug allergies, there is not an oral antibiotic to treat the Pseudomonas, but it is rare, so will start cleansing with chlorhexidine at the time of the dressing change 3 times per week and start her on Augmentin and probiotic. Wound culture from 12/27/22 positive for Corynebacterium striatum which is a skin contaminant. Wound care is Fibrocol+ to be changed 3 times per week and as needed. She has home health to assist with the dressing changes. Today she denies fever, chills, nausea or vomiting. She states she is doing well at home. Progress of Wound: Left sacral ulcer is beefy pink. The edges of her ulcer are still thickened. Ulcer is stable, not improving. Will apply first application of Epifix to the area to see if this will help with the closure of this ulcer. Objective Data Objective Data Vital Signs: Vital Signs Temp Pulse Resp BP 97.2 F L 85 20 H 142/83 H 02/21/23 10:13 02/21/23 10:13 02/21/23 10:13 02/21/23 10:13 Weight: 124 lb Body Mass Index (BMI) 20.0 Charges/Coding Procedures Integumentary 150xxx-152xx: 42851 Skin sub graft trnk/arm/leg Debridement Note Debridement Note Wound debrided: Sacral ulcer Laterality: Left Wound Grade/Stage: Stage IV Type of Debridement: Excisional debridement Anesthesia Used: 5% Lidocaine Gel Depth: Down to and including healthy tissue and in the subcutaneous layer Percentage of wound debrided: 100 Instrument Used: 5mm curette Tissue Removed: Devitalized tissue and slough Severity: Fat Layer Exposed Amount of bleeding with debridement: Mild Bleeding Controlled with: Pressure and Compression and gauze Patient tolerated procedure: Patient tolerated procedure well Debridement Free Text: Good bleeding obtained with debridement Post-Debridement Measurements and Additional Note: Post-Debridement Measurements/Treatment - Nurse 1 - General Ulcer Assessment Start: 02/14/23 10:12 Freq: Status: Active Protocol: JUSTIN Activity Type Activity Date Activity User E-sign Co-sign Detail Recorded Client Recorded Date Recorded By Document 02/14/23 10:15 DL [id number] 02/14/23 10:21 DL Document 02/21/23 10:13 DL [id number] 02/21/23 10:19 DL 02/14/23 02/21/23 10:15 10:13 - Today's Visit Information Type of service Follow-up Visit Follow-up Visit (Physician/CIGARETTE LIGHTER REPAIRER (Physician/CIGARETTE LIGHTER REPAIRER ) ) Arrival Mode Ambulatory, Ambulatory, Walker Walker Transfer Assistance None None Patient Identification Verified (Name & Yes Yes ) Patient Requires Transmission-Based No No Precautions Height and Weight Body Mass Index (BMI) 20.0 20.0 BMI Classification Normal Normal Vital Signs Temperature (97.8 F-99.1 F) 96.9 F L 97.2 F L Temperature Source Temporal Temporal Pulse Rate (60-100) 88 85 Pulse Location Monitor Monitor Respiratory Rate (12-18) 20 H 20 H Respiratory rate source Observation Observation Blood Pressure (90/60-120/80) 142/79 H 142/83 H Blood Pressure Mean (mm Hg) 100 102 Source Monitor Monitor History Since Last Visit- (Skip if this is Patient's initial visit) Have you changed medications since your No No last visit? Any new allergies or adverse reactions No No Had a fall/change in ADL's that may No No increase risk of falls Signs or symptoms of abuse and/or No No neglect since last visit Have you been in the hospital since your No No last visit? Has dressing in place as prescribed Yes Yes Has compression in place as prescribed N/A N/A Has offloadiing in place as prescribed Yes Yes Experienced any changes in pain level or No No management Pain Scale: 0-10 Numeric Is Patient Pain Free? Yes Yes WC - Nurse 1 - General Ulcer Measurement Start: 02/14/23 10:12 Freq: Status: Active Protocol: Activity Type Activity Date Activity User E-sign Co-sign Detail Recorded Client Recorded Date Recorded By Document 02/14/23 10:15 DL [id number] 02/14/23 10:21 DL Document 02/21/23 10:13 DL [id number] 02/21/23 10:19 DL 02/14/23 02/21/23 10:15 10:13 Wound Center Nurse 1 1. sacral -Current Size (cm) - Length 3.6 3.1 -Current Size (cm) - Width 1.8 1.8 -Current Size (cm) - Depth 0.2 0.3 -Total Square Cm 6.48 5.58 -Exudate Amt Small Medium -Exudate Type Serosanguineous -Wound Margin Thickened & Thickened & Rolled Under Rolled Under -Granulation Amt Large (67-100%) Medium (34-66%) -Granulation Quality Red Red -Necrosis Amt Small (1-33%) Medium (34-66%) -Necrotic Tissue Type Adherent Slough Adherent Slough -Structure Exposed N/A N/A -Texture (Mahnaz-wound Skin Appearance) Scarring Scarring -Moisture (Mahnaz-wound Skin Appearance) No Abnormality No Abnormality -Color (Mahnaz-wound Skin Appearance) No Abnormality No Abnormality -Temperature (Mahnaz-wound Skin No Abnormality No Abnormality Appearance) (Pt Warm) (Pt Warm) -Tenderness on Palpation (Mahnaz-wound No No Skin Appearance) -Ulcer Cleansing Soap and Water Not Cleansed -Foul Odor after Cleansing No No -Anesthetic Used 5% Lidocaine 5% Lidocaine Gel Gel BRADEN - Nurse 2 - General Ulcer CM Notes Start: 02/14/23 10:12 Freq: Status: Active Protocol: Activity Type Activity Date Activity User E-sign Co-sign Detail Recorded Client Recorded Date Recorded By Document 02/14/23 10:32 [id number] 02/14/23 10:38 Document 02/21/23 10:34 [id number] 02/21/23 10:41 02/14/23 02/21/23 10:32 10:34 Wound Center Nurse 2 1. sacral -Time 10:33 10:35 -Correct Patient Yes Yes -Correct Side, Site, Position Yes Yes -Correct Procedure Yes Yes -Procedure Performed Yes Yes -Type of Procedure Debridement Debridement -Clinical Debridement Subcutaneous Subcutaneous -Tissue Removed Subcutaneous Subcutaneous -Post Debridement (cm) - Length 3.8 4.0 -Post Debridement (cm) - Width 2.0 2.4 -Post Debridement (cm) - Depth 0.2 0.2 -Total Square (Post) (cm) 7.60 9.60 -Area of Debridement (cm) - Length 3.8 4.0 -Area of Debridement (cm) - Width 2.0 2.4 -Total Square (Area) (cm) 7.60 9.60 -Tunneling No No -Undermining/Tunneling No No -Circular Undermining No No -Wound/Ulcer Outcome Not Healed Not Healed -Ulcer Cleansing Rinsed/ Rinsed/ Irrigated with Irrigated with Saline Saline -Foul Odor after Cleansing No No -Bioengineered Tissue No Yes -Type of Bioengineered Tissue Epifix Mesh -Expiration Date 12/10/27 -Product Lot Number [id number] -Percent Used 100 -Lot number of Saline Used [id number] -Bleeding Controlled with Pressure Pressure -Treatment Response Procedure Procedure Tolerated Well Tolerated Well -Offloading No No -Debridement - Subq, 1st 20sq cm Yes No -Apply Skin Sub - 1st 25 sq cm - Legs 1 -Epifix Mesh (per sq cm) 11 Pain Scale: 0-10 Numeric Is Patient Pain Free? Yes Yes - Nurse 3 - General Ulcer D/C NN Start: 02/14/23 10:12 Freq: Status: Active Protocol: Activity Type Activity Date Activity User E-sign Co-sign Detail Recorded Client Recorded Date Recorded By Document 02/14/23 10:51 [id number] 02/14/23 10:52 KW Document 02/21/23 10:53 DL [id number] 02/21/23 10:57 DL 02/14/23 02/21/23 10:51 10:53 Wound Care Center Nurse 3 1. sacral -Ulcer Cleansing Rinsed/ Irrigated with Saline -Primary Dressing Applied Fibracol Plus 4x4 -Other Dressing Epimesh/ABD -Primary Dressing Covered/Secured with Dry Gauze, Secured with Tape -Fibracol Plus 4x4 1 Treatment Response Procedure Tolerated Well Pain Scale: 0-10 Numeric Is Patient Pain Free? Yes Yes WC - Visit Discharge Discharge Condition Stable Stable Ambulatory Status Ambulatory, Walker Transportation Private Auto Private Auto Medication Reconcilliation completed & No provided to patient/care provider Clinical Summary of Care Provided Yes Facility Type Home Health Orders Sent Yes Assessment/Plan Assessment/Plan (1) Pressure ulcer of sacral region, stage 4: CODE(S): L89.154 - Pressure ulcer of sacral region, stage 4 (2) Rheumatoid arthritis: CODE(S): M06.9 - Rheumatoid arthritis, unspecified (3) Debility: CODE(S): R53.81 - Other malaise PLAN: Plan Patient evaluated at the wound center today. Wound care - She has been approved for Epifix advanced wound healing product. First application of Epifix 4x4 mesh applied today. 100% of the product was used. It was covered with wound veil that was secured with steri strips and then topped with Mepilex silicone border dressing. The outer dressing can be changed as needed. She was instructed not to get this area wet. She has home health who assists her with her dressing changes. Wound culture obtained 12/27/22 which was positive for Corynebacterium striatum which is considered a skin contaminant which there is no need to treat with antibiotics. Wound culture obtained 11/01/22 which was positive for Pseudomonas aeruginosa (very rare amount), Corynebacterium striatum, and Anaerobic cocci. She is allergic to the oral options to treat the Pseudomonas. I spoke with the hospital pharmacist Audra Martinez, on 11/08/22, about her wound culture and she stated that fluoroquinolones are the only option to treat pseudomonas. I discussed with the patient about referring her to ID for further evaluation and treatment but she absolutely refuses to see him because when she was hospitalized, he discussed the possibility of her needing a colostomy and that caused her stress. I would like to have her do dakin's moistened gauze daily to treat this, but the patient is not able to have daily dressing changes due to no help when home health is not present and she is not able to change the dressing herself. Will have her washing the ulcer with chlorhexidine at the time of the dressing change. She completed the Diflucan for her positive operative fungal cultures. Labs drawn on 10/13/22: Total Bili 0.30, AST 17, ALT 20, Alk Phos 151. On 07/25/22 Alk Phos 152. Prealbumin 12.8 on 05/23/22. Encouraged increase protein supplementation. She state she is drinking Tommy 1-2 times per day in addition to her increase in dietary protein. Follow 2 weeks, due to maintenance at the facility next week. Call or come in sooner if develop any questions or concerns.
[2023-03-07 10:14] VITALS: BP 133/72; PULSE 55; RESP 20; TEMP 36.2
--- NOTE | 2023-03-07 11:16 | PCM.WC.PN ---
History of Present Illness Date of Service: 03/07/23 Chief Complaint: Left sacral ulcer History of Wound: 73 year old female with below past medical history suffered fall from second story, hospitalized for multi trauma, underwent left tibia intramedullary nail fixation, right hip anterograde intramedullary nail, complicated by encephalopathy from urinary tract infection, stage 4 left sacral pressure ulcer with chronic osteomyelitis, admitted to TCU on 04/17/22 with debility, there for rehabilitation, strengthening, prior to discharge home alone on 06/25/22 with home health/PT/OT. Surgery 05/22/[address] Lee for Excision necrotic left sacral pressure sore, Stage IV, with partial ostectomy for osteomyelitis. Operative tissue cultures positive for Eschericha coli, Streptococcus sanguinis, Corynebacterium amycolatum, Provotella oralis, Anaerobic cocci, and most recently Fernanda albicans and Aspirgillus fumigatus. Operative bone culture positive for Provotella disiens and Fernanda albicans. She was treated with Levaquin and Augmentin. She developed muscle pain so the Levaquin was switched to Doxycycline. The fungal cultures just recently came back and we will start her on Diflucan. Wound culture obtained 11/01/22 which was positive for Pseudomonas aeruginosa (very rare). Corynebacterium striatum and Anaerobic cocci. With her multiple drug allergies, there is not an oral antibiotic to treat the Pseudomonas, but it is rare, so will start cleansing with chlorhexidine at the time of the dressing change 3 times per week and start her on Augmentin and probiotic. Wound culture from 12/27/22 positive for Corynebacterium striatum which is a skin contaminant. Wound care - She has been approved for Epifix. Today she denies fever, chills, nausea or vomiting. She states she is doing well at home. Progress of Wound: Left sacral ulcer is beefy pink, the ulcer appears smaller this week. Will apply second application of Epifix to the ulcer. Objective Data Objective Data Vital Signs: Vital Signs Temp Pulse Resp BP 97.2 F L 55 L 20 H 133/72 H 03/07/23 10:14 03/07/23 10:14 03/07/23 10:14 03/07/23 10:14 Weight: 124 lb Body Mass Index (BMI) 20.0 Charges/Coding Procedures Integumentary 150xxx-152xx: 52023 Skin sub graft trnk/arm/leg Debridement Note Debridement Note Wound debrided: Sacral ulcer Laterality: Left Wound Grade/Stage: Stage IV Type of Debridement: Excisional debridement Anesthesia Used: 5% Lidocaine Gel Depth: Down to and including healthy tissue and in the subcutaneous layer Percentage of wound debrided: 100 Instrument Used: 5mm curette Tissue Removed: Devitalized tissue and slough Severity: Fat Layer Exposed Amount of bleeding with debridement: Mild Bleeding Controlled with: Pressure and Compression and gauze Patient tolerated procedure: Patient tolerated procedure well Debridement Free Text: Good bleeding obtained with debridement Post-Debridement Measurements and Additional Note: Post-Debridement Measurements/Treatment - Nurse 1 - General Ulcer Assessment Start: 02/14/23 10:12 Freq: Status: Active Protocol: JUSTIN Activity Type Activity Date Activity User E-sign Co-sign Detail Recorded Client Recorded Date Recorded By Document 02/14/23 10:15 DL [id number] 02/14/23 10:21 DL Document 02/21/23 10:13 DL [id number] 02/21/23 10:19 DL Document 03/07/23 10:14 DL Desktop 03/07/23 10:20 DL 02/14/23 02/21/23 03/07/23 10:15 10:13 10:14 - Today's Visit Information Type of service Follow-up Visit Follow-up Visit Follow-up Visit (Physician/CHAMBER MAGISTRATE (Physician/CHAMBER MAGISTRATE (Physician/CHAMBER MAGISTRATE ) ) ) Arrival Mode Ambulatory, Ambulatory, Walker Walker Walker Transfer Assistance None None None Patient Identification Verified (Name & Yes Yes Yes ) Patient Requires Transmission-Based No No No Precautions Height and Weight Body Mass Index (BMI) 20.0 20.0 20.0 BMI Classification Normal Normal Normal Vital Signs Temperature (97.8 F-99.1 F) 96.9 F L 97.2 F L 97.2 F L Temperature Source Temporal Temporal Temporal Pulse Rate (60-100) 88 85 55 L Pulse Location Monitor Monitor Respiratory Rate (12-18) 20 H 20 H 20 H Respiratory rate source Observation Observation Observation Blood Pressure (90/60-120/80) 142/79 H 142/83 H 133/72 H Blood Pressure Mean (mm Hg) 100 102 92 Source Monitor Monitor Monitor History Since Last Visit- (Skip if this is Patient's initial visit) Have you changed medications since your No No No last visit? Any new allergies or adverse reactions No No No Had a fall/change in ADL's that may No No No increase risk of falls Signs or symptoms of abuse and/or No No No neglect since last visit Have you been in the hospital since your No No No last visit? Has dressing in place as prescribed Yes Yes Yes Has compression in place as prescribed N/A N/A Has offloadiing in place as prescribed Yes Yes Yes Experienced any changes in pain level or No No No management Pain Scale: 0-10 Numeric Is Patient Pain Free? Yes Yes Yes WC - Nurse 1 - General Ulcer Measurement Start: 02/14/23 10:12 Freq: Status: Active Protocol: Activity Type Activity Date Activity User E-sign Co-sign Detail Recorded Client Recorded Date Recorded By Document 02/14/23 10:15 DL [id number] 02/14/23 10:21 DL Document 02/21/23 10:13 DL [id number] 02/21/23 10:19 DL Document 03/07/23 10:14 DL Desktop 03/07/23 10:20 DL 02/14/23 02/21/23 03/07/23 10:15 10:13 10:14 Wound Center Nurse 1 1. sacral -Current Size (cm) - Length 3.6 3.1 2.8 -Current Size (cm) - Width 1.8 1.8 1 -Current Size (cm) - Depth 0.2 0.3 0.2 -Total Square Cm 6.48 5.58 2.8 -Exudate Amt Small Medium Medium -Exudate Type Serosanguineous Serosanguineous -Wound Margin Thickened & Thickened & Thickened & Rolled Under Rolled Under Rolled Under -Granulation Amt Large (67-100%) Medium (34-66%) Large (67-100%) -Granulation Quality Red Red Red -Necrosis Amt Small (1-33%) Medium (34-66%) Small (1-33%) -Necrotic Tissue Type Adherent Slough Adherent Slough Adherent Slough -Structure Exposed N/A N/A N/A -Texture (Mahnaz-wound Skin Appearance) Scarring Scarring Scarring -Moisture (Mahnaz-wound Skin Appearance) No Abnormality No Abnormality No Abnormality -Color (Mahnaz-wound Skin Appearance) No Abnormality No Abnormality No Abnormality -Temperature (Mahnaz-wound Skin No Abnormality No Abnormality No Abnormality Appearance) (Pt Warm) (Pt Warm) (Pt Warm) -Tenderness on Palpation (Mahnaz-wound No No No Skin Appearance) -Ulcer Cleansing Soap and Water Not Cleansed Soap and Water -Foul Odor after Cleansing No No No -Anesthetic Used 5% Lidocaine 5% Lidocaine 5% Lidocaine Gel Gel Gel WC - Nurse 2 - General Ulcer CM Notes Start: 02/14/23 10:12 Freq: Status: Active Protocol: Activity Type Activity Date Activity User E-sign Co-sign Detail Recorded Client Recorded Date Recorded By Document 02/14/23 10:32 [id number] 02/14/23 10:38 Document 02/21/23 10:34 [id number] 02/21/23 10:41 Document 03/07/23 10:28 Desktop 03/07/23 10:35 02/14/23 02/21/23 03/07/23 10:32 10:34 10:28 Wound Center Nurse 2 1. sacral -Time 10:33 10:35 10:33 -Correct Patient Yes Yes Yes -Correct Side, Site, Position Yes Yes Yes -Correct Procedure Yes Yes Yes -Procedure Performed Yes Yes Yes -Type of Procedure Debridement Debridement Debridement -Clinical Debridement Subcutaneous Subcutaneous Subcutaneous -Tissue Removed Subcutaneous Subcutaneous Subcutaneous -Post Debridement (cm) - Length 3.8 4.0 2.9 -Post Debridement (cm) - Width 2.0 2.4 1.5 -Post Debridement (cm) - Depth 0.2 0.2 0.2 -Total Square (Post) (cm) 7.60 9.60 4.35 -Area of Debridement (cm) - Length 3.8 4.0 2.9 -Area of Debridement (cm) - Width 2.0 2.4 1.5 -Total Square (Area) (cm) 7.60 9.60 4.35 -Tunneling No No No -Undermining/Tunneling No No No -Circular Undermining No No No -Wound/Ulcer Outcome Not Healed Not Healed Not Healed -Ulcer Cleansing Rinsed/ Rinsed/ Rinsed/ Irrigated with Irrigated with Irrigated with Saline Saline Saline -Foul Odor after Cleansing No No No -Bioengineered Tissue No Yes Yes -Type of Bioengineered Tissue Epifix Mesh Epifix Mesh -Expiration Date 12/10/27 12/10/27 -Product Lot Number [id number] -Percent Used 100 100 -Lot number of Saline Used [id number] -Bleeding Controlled with Pressure Pressure Pressure -Treatment Response Procedure Procedure Procedure Tolerated Well Tolerated Well Tolerated Well -Offloading No No No -Debridement - Subq, 1st 20sq cm Yes No No -Apply Skin Sub - 1st 25 sq cm - Legs 1 1 -Epifix Mesh (per sq cm) 11 11 Pain Scale: 0-10 Numeric Is Patient Pain Free? Yes Yes Yes - Nurse 3 - General Ulcer D/C NN Start: 02/14/23 10:12 Freq: Status: Active Protocol: Activity Type Activity Date Activity User E-sign Co-sign Detail Recorded Client Recorded Date Recorded By Document 02/14/23 10:51 KW [id number] 02/14/23 10:52 KW Document 02/21/23 10:53 DL [id number] 02/21/23 10:57 DL Document 03/07/23 11:04 DL Desktop 03/07/23 11:06 DL 02/14/23 02/21/23 03/07/23 10:51 10:53 11:04 Wound Care Center Nurse 3 1. sacral -Ulcer Cleansing Rinsed/ Irrigated with Saline -Foul Odor after Cleansing No -Primary Dressing Applied Fibracol Plus 4x4 -Other Dressing Epimesh/ABD epimesh -Primary Dressing Covered/Secured with Dry Gauze, Dry Gauze, Secured with Secured with Tape Tape -Other Covering ABD -Fibracol Plus 4x4 1 Treatment Response Procedure Procedure Tolerated Well Tolerated Well Pain Scale: 0-10 Numeric Is Patient Pain Free? Yes Yes Yes - Visit Discharge Discharge Condition Stable Stable Stable Ambulatory Status Ambulatory, Ambulatory, Walker Walker Transportation Private Auto Private Auto Private Auto Medication Reconcilliation completed & No provided to patient/care provider Clinical Summary of Care Provided Yes Facility Type Home Health Transport Rn Care Facility Orders Sent Yes Yes Assessment/Plan Assessment/Plan (1) Pressure ulcer of sacral region, stage 4: CODE(S): L89.154 - Pressure ulcer of sacral region, stage 4 (2) Rheumatoid arthritis: CODE(S): M06.9 - Rheumatoid arthritis, unspecified (3) Debility: CODE(S): R53.81 - Other malaise PLAN: Plan Patient evaluated at the wound center today. Wound care - She has been approved for Epifix advanced wound healing product. Second application of Epifix 4x4 mesh applied today. 100% of the product was used. It was covered with wound veil that was secured with steri strips and then topped with Mepilex silicone border dressing. The outer dressing can be changed as needed. She was instructed not to get this area wet. She has home health who assists her with her dressing changes. Wound culture obtained 12/27/22 which was positive for Corynebacterium striatum which is considered a skin contaminant which there is no need to treat with antibiotics. Wound culture obtained 11/01/22 which was positive for Pseudomonas aeruginosa (very rare amount), Corynebacterium striatum, and Anaerobic cocci. She is allergic to the oral options to treat the Pseudomonas. I spoke with the hospital pharmacist Audra Martinez, on 11/08/22, about her wound culture and she stated that fluoroquinolones are the only option to treat pseudomonas. I discussed with the patient about referring her to ID for further evaluation and treatment but she absolutely refuses to see him because when she was hospitalized, he discussed the possibility of her needing a colostomy and that caused her stress. I would like to have her do dakin's moistened gauze daily to treat this, but the patient is not able to have daily dressing changes due to no help when home health is not present and she is not able to change the dressing herself. Will have her washing the ulcer with chlorhexidine at the time of the dressing change. She completed the Diflucan for her positive operative fungal cultures. Labs drawn on 10/13/22: Total Bili 0.30, AST 17, ALT 20, Alk Phos 151. On 07/25/22 Alk Phos 152. Prealbumin 12.8 on 05/23/22. Encouraged increase protein supplementation. She state she is drinking Tommy 1-2 times per day in addition to her increase in dietary protein. Follow 1 week. Call or come in sooner if develop any questions or concerns.
== END 2023-03-10 23:59 | disposition home or self-care (01) ==
LOC: WC 10:15
PROVIDERS: PCP Family Medicine; Referring Provider Family Medicine; Visit Provider Nurse Practitioner Family
DX: L89.154 Pressure ulcer of sacral region, stage 4 (principal); M06.9 Rheumatoid arthritis, unspecified; R53.81 Other malaise; Z87.39 Personal history of other diseases of the musculoskeletal system and connective tissue; Z79.82 Long term (current) use of aspirin; Z79.899 Other long term (current) drug therapy
CPT/HCPCS: 11042; 15271; Q4186

== ENCOUNTER 2023-04-04 10:15 | Outpatient (RCR) | payer MEDICARE, OTHER, SELFPAY ==
[2023-03-11 00:20] VITALS: BP 133/72; PULSE 55; RESP 20; TEMP 36.2
[2023-03-21 10:11] VITALS: BP 148/76; PULSE 73; RESP 18; TEMP 35.8
--- NOTE | 2023-03-21 11:40 | PCM.WC.PN ---
History of Present Illness Date of Service: 03/21/23 Chief Complaint: Left sacral ulcer History of Wound: 73 year old female with below past medical history suffered fall from second story, hospitalized for multi trauma, underwent left tibia intramedullary nail fixation, right hip anterograde intramedullary nail, complicated by encephalopathy from urinary tract infection, stage 4 left sacral pressure ulcer with chronic osteomyelitis, admitted to TCU on 04/17/22 with debility, there for rehabilitation, strengthening, prior to discharge home alone on 06/25/22 with home health/PT/OT. Surgery 05/22/[address] Lee for Excision necrotic left sacral pressure sore, Stage IV, with partial ostectomy for osteomyelitis. Operative tissue cultures positive for Eschericha coli, Streptococcus sanguinis, Corynebacterium amycolatum, Provotella oralis, Anaerobic cocci, and most recently Fernanda albicans and Aspirgillus fumigatus. Operative bone culture positive for Provotella disiens and Fernanda albicans. She was treated with Levaquin and Augmentin. She developed muscle pain so the Levaquin was switched to Doxycycline. The fungal cultures just recently came back and we will start her on Diflucan. Wound culture obtained 11/01/22 which was positive for Pseudomonas aeruginosa (very rare). Corynebacterium striatum and Anaerobic cocci. With her multiple drug allergies, there is not an oral antibiotic to treat the Pseudomonas, but it is rare, so will start cleansing with chlorhexidine at the time of the dressing change 3 times per week and start her on Augmentin and probiotic. Wound culture from 12/27/22 positive for Corynebacterium striatum which is a skin contaminant. Wound care - She has been approved for Epifix. Today she denies fever, chills, nausea or vomiting. She states she is doing well at home. Progress of Wound: Left sacral ulcer is beefy pink, the ulcer appears smaller this week. Will apply third application of Epifix to the ulcer. Objective Data Objective Data Vital Signs: Vital Signs Temp Pulse Resp BP O2 Del Method 96.5 F L 73 18 148/76 H Room Air 03/21/23 10:11 03/21/23 10:11 03/21/23 10:11 03/21/23 10:11 03/21/23 10:11 Oxygen Delivery Method Room Air Weight: 124 lb Body Mass Index (BMI) 20.0 Charges/Coding Procedures Integumentary 150xxx-152xx: 47457 Skin sub graft trnk/arm/leg Debridement Note Debridement Note Wound debrided: Sacral ulcer Laterality: Left Wound Grade/Stage: Stage IV Type of Debridement: Excisional debridement Anesthesia Used: 5% Lidocaine Gel Depth: Down to and including healthy tissue and in the subcutaneous layer Percentage of wound debrided: 100 Instrument Used: 5mm curette Tissue Removed: Devitalized tissue and slough Severity: Fat Layer Exposed Amount of bleeding with debridement: Mild Bleeding Controlled with: Pressure and Compression and gauze Patient tolerated procedure: Patient tolerated procedure well Debridement Free Text: Good bleeding obtained with debridement Post-Debridement Measurements and Additional Note: Post-Debridement Measurements/Treatment - Nurse 1 - General Ulcer Assessment Start: 03/21/23 10:11 Freq: Status: Active Protocol: JUSTIN Activity Type Activity Date Activity User E-sign Co-sign Detail Recorded Client Recorded Date Recorded By Document 03/21/23 10:11 KW Desktop 03/21/23 10:22 KW 03/21/23 10:11 WC - Today's Visit Information Type of service Follow-up Visit (Physician/PROVIDER RELATIONS REP ) Arrival Mode Ambulatory, Walker Patient Identification Verified (Name & Yes ) Height and Weight Body Mass Index (BMI) 20.0 BMI Classification Normal Vital Signs Temperature (97.8 F-99.1 F) 96.5 F L Temperature Source Temporal Pulse Rate (60-100) 73 Pulse Location Monitor Respiratory Rate (12-18) 18 Respiratory rate source Observation Oxygen Delivery Method Room Air Blood Pressure (90/60-120/80) 148/76 H Blood Pressure Mean (mm Hg) 100 Source Monitor Position Sitting Blood Pressure Location Left Forearm History Since Last Visit- (Skip if this is Patient's initial visit) Have you changed medications since your No last visit? Any new allergies or adverse reactions No Had a fall/change in ADL's that may No increase risk of falls Have you been in the hospital since your No last visit? Has dressing in place as prescribed Yes Has compression in place as prescribed N/A Has offloadiing in place as prescribed N/A Experienced any changes in pain level or No management Left Footwear Regular Shoe Right Footwear Regular Shoe Pain Scale: 0-10 Numeric Is Patient Pain Free? Yes - Nurse 1 - General Ulcer Measurement Start: 03/21/23 10:11 Freq: Status: Active Protocol: Activity Type Activity Date Activity User E-sign Co-sign Detail Recorded Client Recorded Date Recorded By Document 03/21/23 10:11 KW Desktop 03/21/23 10:22 KW 03/21/23 10:11 Wound Center Nurse 1 1. sacral -Current Size (cm) - Length 2.2 -Current Size (cm) - Width 1.2 -Current Size (cm) - Depth 0.2 -Total Square Cm 2.64 -Exudate Amt Small -Exudate Type Serosanguineous -Wound Margin Fibrotic Scar, Thickened Scar -Granulation Amt Medium (34-66%) -Granulation Quality Red -Necrosis Amt Small (1-33%) -Necrotic Tissue Type Adherent Slough -Texture (Mahnaz-wound Skin Appearance) Assessed -Moisture (Mahnaz-wound Skin Appearance) Assessed -Color (Mahnaz-wound Skin Appearance) Assessed, Erythema -Temperature (Mahnaz-wound Skin No Abnormality Appearance) (Pt Warm) -Tenderness on Palpation (Mahnaz-wound No Skin Appearance) -Ulcer Cleansing Rinsed/ Irrigated with Saline -Foul Odor after Cleansing No -Anesthetic Used 5% Lidocaine Gel WC - Nurse 2 - General Ulcer CM Notes Start: 03/21/23 10:11 Freq: Status: Active Protocol: Activity Type Activity Date Activity User E-sign Co-sign Detail Recorded Client Recorded Date Recorded By Document 03/21/23 10:35 Laptop 03/21/23 10:41 03/21/23 10:35 Wound Center Nurse 2 -Time 10:35 -Correct Patient Yes -Correct Side, Site, Position Yes -Correct Procedure Yes -Procedure Performed Yes -Type of Procedure Debridement -Clinical Debridement Subcutaneous -Tissue Removed Subcutaneous -Post Debridement (cm) - Length 2.8 -Post Debridement (cm) - Width 1.3 -Post Debridement (cm) - Depth 0.2 -Total Square (Post) (cm) 3.64 -Area of Debridement (cm) - Length 2.8 -Area of Debridement (cm) - Width 1.3 -Total Square (Area) (cm) 3.64 -Tunneling No -Undermining/Tunneling No -Circular Undermining No -Wound/Ulcer Outcome Not Healed -Ulcer Cleansing Rinsed/ Irrigated with Saline -Foul Odor after Cleansing No -Bioengineered Tissue Yes -Type of Bioengineered Tissue Epifix -Expiration Date 11/10/27 -Product Lot Number [id number] -Percent Used 100 -Lot number of Saline Used [id number] -Bleeding Controlled with Pressure -Treatment Response Procedure Tolerated Well -Offloading No -Debridement - Subq, 1st 20sq cm No -Apply Skin Sub - 1st 25 sq cm - Legs 1 -Epifix (per sq cm) 4 Pain Scale: 0-10 Numeric Is Patient Pain Free? Yes - Nurse 3 - General Ulcer D/C NN Start: 03/21/23 10:11 Freq: Status: Active Protocol: Activity Type Activity Date Activity User E-sign Co-sign Detail Recorded Client Recorded Date Recorded By Document 03/21/23 10:41 Laptop 03/21/23 10:42 03/21/23 10:41 Wound Care Center Nurse 3 1. sacral -Ulcer Cleansing Rinsed/ Irrigated with Saline -Foul Odor after Cleansing No -Primary Dressing Applied Mepilex Border -Mepilex Border 1 Pain Scale: 0-10 Numeric Is Patient Pain Free? Yes - Visit Discharge Discharge Condition Stable Ambulatory Status Ambulatory, Walker Transportation Private Auto Medication Reconcilliation completed & Yes provided to patient/care provider Clinical Summary of Care Provided Yes Assessment/Plan Assessment/Plan (1) Pressure ulcer of sacral region, stage 4: CODE(S): L89.154 - Pressure ulcer of sacral region, stage 4 (2) Rheumatoid arthritis: CODE(S): M06.9 - Rheumatoid arthritis, unspecified (3) Debility: CODE(S): R53.81 - Other malaise PLAN: Plan Patient evaluated at the wound center today. Wound care - She has been approved for Epifix advanced wound healing product. Third application of Epifix applied today. 100% of the product was used. It was covered with wound veil that was secured with steri strips and then topped with Mepilex silicone border dressing. The outer dressing can be changed as needed. She was instructed not to get this area wet. She has home health who assists her with her dressing changes. Wound culture obtained 12/27/22 which was positive for Corynebacterium striatum which is considered a skin contaminant which there is no need to treat with antibiotics. Wound culture obtained 11/01/22 which was positive for Pseudomonas aeruginosa (very rare amount), Corynebacterium striatum, and Anaerobic cocci. She is allergic to the oral options to treat the Pseudomonas. I spoke with the hospital pharmacist Audra Martinez, on 11/08/22, about her wound culture and she stated that fluoroquinolones are the only option to treat pseudomonas. I discussed with the patient about referring her to ID for further evaluation and treatment but she absolutely refuses to see him because when she was hospitalized, he discussed the possibility of her needing a colostomy and that caused her stress. She completed the Diflucan for her positive operative fungal cultures. Labs drawn on 10/13/22: Total Bili 0.30, AST 17, ALT 20, Alk Phos 151. On 07/25/22 Alk Phos 152. Prealbumin 12.8 on 05/23/22. Encouraged increase protein supplementation. She state she is drinking Tommy 1-2 times per day in addition to her increase in dietary protein. Follow 1 week. Call or come in sooner if develop any questions or concerns.
[2023-03-28 09:13] VITALS: BP 151/74; PULSE 82; RESP 18; TEMP 36.6
--- NOTE | 2023-03-28 11:58 | PN.PCM_ITS ---
History of Present Illness Date of Service: 03/28/23 Chief Complaint: Left sacral ulcer History of Wound: 73 year old female with below past medical history suffered fall from second story, hospitalized for multi trauma, underwent left tibia intramedullary nail fixation, right hip anterograde intramedullary nail, complicated by encephalopathy from urinary tract infection, stage 4 left sacral pressure ulcer with chronic osteomyelitis, admitted to TCU on 04/17/22 with debility, there for rehabilitation, strengthening, prior to discharge home alone on 06/25/22 with home health/PT/OT. Surgery 05/22/[address] Lee for Excision necrotic left sacral pressure sore, Stage IV, with partial ostectomy for osteomyelitis. Operative tissue cultures positive for Eschericha coli, Streptococcus sanguinis, Corynebacterium amycolatum, Provotella oralis, Anaerobic cocci, and most recently Efrnanda albicans and Aspirgillus fumigatus. Operative bone culture positive for Provotella disiens and Fernanda albicans. She was treated with Levaquin and Augmentin. She developed muscle pain so the Levaquin was switched to Doxycycline. The fungal cultures just recently came back and we will start her on Diflucan. Wound culture obtained 11/01/22 which was positive for Pseudomonas aeruginosa (very rare). Corynebacterium striatum and Anaerobic cocci. With her multiple drug allergies, there is not an oral antibiotic to treat the Pseudomonas, but it is rare, so will start cleansing with chlorhexidine at the time of the dressing change 3 times per week and start her on Augmentin and probiotic. Wound culture from 12/27/22 positive for Corynebacterium striatum which is a skin contaminant. Wound care - She has been approved for Epifix. Today she denies fever, chills, nausea or vomiting. She states she is doing well at home. Progress of Wound: Left sacral ulcer is beefy pink, the ulcer appears smaller this week. Will apply 4th application of Epifix to the ulcer. Objective Data Objective Data Vital Signs: Vital Signs Temp Pulse Resp BP O2 Del Method 97.9 F 82 18 151/74 H Room Air 03/28/23 09:13 03/28/23 09:13 03/28/23 09:13 03/28/23 09:13 03/28/23 09:13 Oxygen Delivery Method Room Air Weight: 124 lb Body Mass Index (BMI) 20.0 Charges/Coding Procedures Integumentary 150xxx-152xx: 09401 Skin sub graft trnk/arm/leg Debridement Note Debridement Note Wound debrided: Sacral ulcer Laterality: Left Wound Grade/Stage: Stage IV Type of Debridement: Excisional debridement Anesthesia Used: 5% Lidocaine Gel Depth: Down to and including healthy tissue and in the subcutaneous layer Percentage of wound debrided: 100 Instrument Used: 5mm curette Tissue Removed: Devitalized tissue and slough Severity: Fat Layer Exposed Amount of bleeding with debridement: Mild Bleeding Controlled with: Pressure and Compression and gauze Patient tolerated procedure: Patient tolerated procedure well Debridement Free Text: Good bleeding obtained with debridement Post-Debridement Measurements and Additional Note: Post-Debridement Measurements/Treatment WC - Nurse 1 - General Ulcer Assessment Start: 03/21/23 10:11 Freq: Status: Active Protocol: WC.LOWLISSA Activity Type Activity Date Activity User E-sign Co-sign Detail Recorded Client Recorded Date Recorded By Document 03/21/23 10:11 [employer] 03/21/23 10:22 KW Document 03/28/23 09:13 [employer] 03/28/23 09:16 KW 03/21/23 03/28/23 10:11 09:13 WC - Today's Visit Information Type of service Follow-up Visit Follow-up Visit (Physician/SHELLFISH PROCESSING LABORER (Physician/SHELLFISH PROCESSING LABORER ) ) Arrival Mode Ambulatory, Ambulatory, Walker Walker Transfer Assistance None Patient Identification Verified (Name & Yes Yes ) Patient Requires Transmission-Based No Precautions Height and Weight Body Mass Index (BMI) 20.0 20.0 BMI Classification Normal Normal Vital Signs Temperature (97.8 F-99.1 F) 96.5 F L 97.9 F Temperature Source Temporal Temporal Pulse Rate (60-100) 73 82 Pulse Location Monitor Monitor Respiratory Rate (12-18) 18 18 Respiratory rate source Observation Observation Oxygen Delivery Method Room Air Room Air Blood Pressure (90/60-120/80) 148/76 H 151/74 H Blood Pressure Mean (mm Hg) 100 99 Source Monitor Position Sitting Blood Pressure Location Left Forearm History Since Last Visit- (Skip if this is Patient's initial visit) Have you changed medications since your No No last visit? Any new allergies or adverse reactions No No Had a fall/change in ADL's that may No No increase risk of falls Signs or symptoms of abuse and/or No neglect since last visit Have you been in the hospital since your No No last visit? Has dressing in place as prescribed Yes Yes Has compression in place as prescribed N/A N/A Has offloadiing in place as prescribed N/A N/A Experienced any changes in pain level or No No management Left Footwear Regular Shoe Regular Shoe Right Footwear Regular Shoe Regular Shoe Pain Scale: 0-10 Numeric Is Patient Pain Free? Yes Yes WC - Nurse 1 - General Ulcer Measurement Start: 03/21/23 10:11 Freq: Status: Active Protocol: Activity Type Activity Date Activity User E-sign Co-sign Detail Recorded Client Recorded Date Recorded By Document 03/21/23 10:11 KW [employer] 03/21/23 10:22 KW Document 03/28/23 09:13 KW Desktop 03/28/23 09:16 KW 03/21/23 03/28/23 10:11 09:13 Wound Center Nurse 1 1. sacral -Current Size (cm) - Length 2.2 1.1 -Current Size (cm) - Width 1.2 0.7 -Current Size (cm) - Depth 0.2 0.2 -Total Square Cm 2.64 0.77 -Exudate Amt Small Small -Exudate Type Serosanguineous Serosanguineous -Wound Margin Fibrotic Scar, Thickened Thickened Scar -Granulation Amt Medium (34-66%) Medium (34-66%) -Granulation Quality Red Red -Necrosis Amt Small (1-33%) Small (1-33%) -Necrotic Tissue Type Adherent Slough Adherent Slough -Texture (Mahnaz-wound Skin Appearance) Assessed Assessed -Moisture (Mahnaz-wound Skin Appearance) Assessed Assessed -Color (Mahnaz-wound Skin Appearance) Assessed, Assessed Erythema -Temperature (Mahnaz-wound Skin No Abnormality No Abnormality Appearance) (Pt Warm) (Pt Warm) -Tenderness on Palpation (Mahnaz-wound No No Skin Appearance) -Ulcer Cleansing Rinsed/ Soap and Water Irrigated with Saline -Foul Odor after Cleansing No No -Anesthetic Used 5% Lidocaine 5% Lidocaine Gel Gel BRADEN - Nurse 2 - General Ulcer CM Notes Start: 03/21/23 10:11 Freq: Status: Active Protocol: Activity Type Activity Date Activity User E-sign Co-sign Detail Recorded Client Recorded Date Recorded By Document 03/21/23 10:35 Laptop 03/21/23 10:41 Document 03/28/23 09:30 Laptop 03/28/23 09:36 03/21/23 03/28/23 10:35 09:30 Wound Center Nurse 2 1. sacral -Time 10:35 09:30 -Correct Patient Yes Yes -Correct Side, Site, Position Yes Yes -Correct Procedure Yes Yes -Procedure Performed Yes Yes -Type of Procedure Debridement Debridement -Clinical Debridement Subcutaneous Subcutaneous -Tissue Removed Subcutaneous Subcutaneous -Post Debridement (cm) - Length 2.8 2.3 -Post Debridement (cm) - Width 1.3 1.1 -Post Debridement (cm) - Depth 0.2 0.1 -Total Square (Post) (cm) 3.64 2.53 -Area of Debridement (cm) - Length 2.8 2.3 -Area of Debridement (cm) - Width 1.3 1.1 -Total Square (Area) (cm) 3.64 2.53 -Tunneling No No -Undermining/Tunneling No No -Circular Undermining No No -Wound/Ulcer Outcome Not Healed Not Healed -Ulcer Cleansing Rinsed/ Rinsed/ Irrigated with Irrigated with Saline Saline -Foul Odor after Cleansing No No -Bioengineered Tissue Yes Yes -Type of Bioengineered Tissue Epifix Epifix -Expiration Date 11/10/27 12/10/27 -Product Lot Number [id number] -Percent Used 100 100 -Lot number of Saline Used [id number] -Bleeding Controlled with Pressure Pressure -Treatment Response Procedure Procedure Tolerated Well Tolerated Well -Offloading No No -Debridement - Subq, 1st 20sq cm No No -Apply Skin Sub - 1st 25 sq cm - Legs 1 1 -Epifix (per sq cm) 4 4 Pain Scale: 0-10 Numeric Is Patient Pain Free? Yes Yes - Nurse 3 - General Ulcer D/C NN Start: 03/21/23 10:11 Freq: Status: Active Protocol: Activity Type Activity Date Activity User E-sign Co-sign Detail Recorded Client Recorded Date Recorded By Document 03/21/23 10:41 Laptop 03/21/23 10:42 Document 03/28/23 09:36 Laptop 03/28/23 09:37 JF Edit Result 03/28/23 09:36 JF (1) Laptop 03/28/23 09:57 JF (1) 1. sacral - Mepilex Border 1 => 2 03/21/23 03/28/23 10:41 09:36 Wound Care Center Nurse 3 1. sacral -Ulcer Cleansing Rinsed/ Rinsed/ Irrigated with Irrigated with Saline Saline -Foul Odor after Cleansing No No -Primary Dressing Applied Mepilex Border Mepilex Border -Primary Dressing Covered/Secured with Dry Gauze -Mepilex Border 1 2 Pain Scale: 0-10 Numeric Is Patient Pain Free? Yes Yes WC - Visit Discharge Discharge Condition Stable Stable Ambulatory Status Ambulatory, Ambulatory, Walker Walker Transportation Private Auto Private Auto Medication Reconcilliation completed & Yes Yes provided to patient/care provider Clinical Summary of Care Provided Yes Yes Assessment/Plan Assessment/Plan (1) Pressure ulcer of sacral region, stage 4: CODE(S): L89.154 - Pressure ulcer of sacral region, stage 4 (2) Rheumatoid arthritis: CODE(S): M06.9 - Rheumatoid arthritis, unspecified (3) Debility: CODE(S): R53.81 - Other malaise PLAN: Plan Patient evaluated at the wound center today. Wound care - She has been approved for Epifix advanced wound healing product. 4th application of 2x2 cm Epifix applied today. 100% of the product was used. It was covered with wound veil that was secured with steri strips and then topped with Mepilex silicone border dressing. The outer dressing can be changed as needed. She was instructed not to get this area wet. She has home health who assists her with her dressing changes. Wound culture obtained 12/27/22 which was positive for Corynebacterium striatum which is considered a skin contaminant which there is no need to treat with antibiotics. Wound culture obtained 11/01/22 which was positive for Pseudomonas aeruginosa (very rare amount), Corynebacterium striatum, and Anaerobic cocci. She is allergic to the oral options to treat the Pseudomonas. I spoke with the hospital pharmacist Audra Martinez, on 11/08/22, about her wound culture and she stated that fluoroquinolones are the only option to treat pseudomonas. I discussed with the patient about referring her to ID for further evaluation and treatment but she absolutely refuses to see him because when she was hospitalized, he discussed the possibility of her needing a colostomy and that caused her stress. She completed the Diflucan for her positive operative fungal cultures. Labs drawn on 10/13/22: Total Bili 0.30, AST 17, ALT 20, Alk Phos 151. On 07/25/22 Alk Phos 152. Prealbumin 12.8 on 05/23/22. Encouraged increase protein supplementation. She state she is drinking Tommy 1-2 times per day in addition to her increase in dietary protein. Follow 1 week. Call or come in sooner if develop any questions or concerns.
[2023-04-04 10:07] VITALS: BP 134/62; PULSE 55; TEMP 36.2
--- NOTE | 2023-04-04 12:54 | PCM.WC.PN ---
History of Present Illness Date of Service: 04/04/23 Chief Complaint: Left sacral ulcer History of Wound: 73 year old female with below past medical history suffered fall from second story, hospitalized for multi trauma, underwent left tibia intramedullary nail fixation, right hip anterograde intramedullary nail, complicated by encephalopathy from urinary tract infection, stage 4 left sacral pressure ulcer with chronic osteomyelitis, admitted to TCU on 04/17/22 with debility, there for rehabilitation, strengthening, prior to discharge home alone on 06/25/22 with home health/PT/OT. Surgery 05/22/[address] Lee for Excision necrotic left sacral pressure sore, Stage IV, with partial ostectomy for osteomyelitis. Operative tissue cultures positive for Eschericha coli, Streptococcus sanguinis, Corynebacterium amycolatum, Provotella oralis, Anaerobic cocci, and most recently Fernanda albicans and Aspirgillus fumigatus. Operative bone culture positive for Provotella disiens and Fernanda albicans. She was treated with Levaquin and Augmentin. She developed muscle pain so the Levaquin was switched to Doxycycline. The fungal cultures just recently came back and we will start her on Diflucan. Wound culture obtained 11/01/22 which was positive for Pseudomonas aeruginosa (very rare). Corynebacterium striatum and Anaerobic cocci. With her multiple drug allergies, there is not an oral antibiotic to treat the Pseudomonas, but it is rare, so will start cleansing with chlorhexidine at the time of the dressing change 3 times per week and start her on Augmentin and probiotic. Wound culture from 12/27/22 positive for Corynebacterium striatum which is a skin contaminant. Wound care - She has been approved for Epifix. Today she denies fever, chills, nausea or vomiting. She states she is doing well at home. Progress of Wound: Left sacral ulcer is beefy pink, the ulcer appears smaller this week. Will apply 5th application of Epifix to the ulcer. Objective Data Objective Data Vital Signs: Vital Signs Temp Pulse Resp BP O2 Del Method 97.2 F L 55 L 18 134/62 H Room Air 04/04/23 10:07 04/04/23 10:07 03/28/23 09:13 04/04/23 10:07 04/04/23 10:07 Oxygen Delivery Method Room Air Weight: 124 lb Body Mass Index (BMI) 20.0 Charges/Coding Procedures Integumentary 150xxx-152xx: 69316 Skin sub graft trnk/arm/leg Debridement Note Debridement Note Wound debrided: Sacral ulcer Laterality: Left Wound Grade/Stage: Stage IV Type of Debridement: Excisional debridement Anesthesia Used: 5% Lidocaine Gel Depth: Down to and including healthy tissue and in the subcutaneous layer Percentage of wound debrided: 100 Instrument Used: 5mm curette Tissue Removed: Devitalized tissue and slough Severity: Fat Layer Exposed Amount of bleeding with debridement: Mild Bleeding Controlled with: Pressure and Compression and gauze Patient tolerated procedure: Patient tolerated procedure well Debridement Free Text: Good bleeding obtained with debridement Post-Debridement Measurements and Additional Note: Post-Debridement Measurements/Treatment - Nurse 1 - General Ulcer Assessment Start: 03/21/23 10:11 Freq: Status: Active Protocol: BRADEN.SAVANNAH Activity Type Activity Date Activity User E-sign Co-sign Detail Recorded Client Recorded Date Recorded By Document 03/21/23 10:11 [employer] 03/21/23 10:22 KW Document 03/28/23 09:13 KW [employer] 03/28/23 09:16 KW Document 04/04/23 10:07 [employer] Desktop 04/04/23 10:16 03/21/23 03/28/23 04/04/23 10:11 09:13 10:07 - Today's Visit Information Type of service Follow-up Visit Follow-up Visit Follow-up Visit (Physician/PSYCHOLOGICAL STRESS EVALUATOR (Physician/PSYCHOLOGICAL STRESS EVALUATOR (Physician/PSYCHOLOGICAL STRESS EVALUATOR ) ) ) Arrival Mode Ambulatory, Ambulatory, Ambulatory,Cane Walker Walker Transfer Assistance None None Patient Identification Verified (Name & Yes Yes Yes ) Patient Requires Transmission-Based No No Precautions Safety Precautions NA Height and Weight Body Mass Index (BMI) 20.0 20.0 20.0 BMI Classification Normal Normal Normal Vital Signs Temperature (97.8 F-99.1 F) 96.5 F L 97.9 F 97.2 F L Temperature Source Temporal Temporal Temporal Pulse Rate (60-100) 73 82 55 L Pulse Location Monitor Monitor Monitor Respiratory Rate (12-18) 18 18 Respiratory rate source Observation Observation Oxygen Delivery Method Room Air Room Air Room Air Blood Pressure (90/60-120/80) 148/76 H 151/74 H 134/62 H Blood Pressure Mean (mm Hg) 100 99 86 Source Monitor Monitor Position Sitting Sitting Blood Pressure Location Left Forearm Right Arm History Since Last Visit- (Skip if this is Patient's initial visit) Have you changed medications since your No No No last visit? Any new allergies or adverse reactions No No No Had a fall/change in ADL's that may No No No increase risk of falls Signs or symptoms of abuse and/or No No neglect since last visit Have you been in the hospital since your No No No last visit? Has dressing in place as prescribed Yes Yes Yes Has compression in place as prescribed N/A N/A N/A Has offloadiing in place as prescribed N/A N/A N/A Experienced any changes in pain level or No No No management Left Footwear Regular Shoe Regular Shoe Right Footwear Regular Shoe Regular Shoe Pain Scale: 0-10 Numeric Is Patient Pain Free? Yes Yes Yes WC - Nurse 1 - General Ulcer Measurement Start: 03/21/23 10:11 Freq: Status: Active Protocol: Activity Type Activity Date Activity User E-sign Co-sign Detail Recorded Client Recorded Date Recorded By Document 03/21/23 10:11 KW [employer] 03/21/23 10:22 KW Document 03/28/23 09:13 KW [employer] 03/28/23 09:16 KW Document 04/04/23 10:07 Desktop 04/04/23 10:16 03/21/23 03/28/23 04/04/23 10:11 09:13 10:07 Wound Center Nurse 1 1. sacral -Combined with other wound No -Current Size (cm) - Length 2.2 1.1 2.0 -Current Size (cm) - Width 1.2 0.7 1.1 -Current Size (cm) - Depth 0.2 0.2 0.3 -Total Square Cm 2.64 0.77 2.20 -Epithelialization Small 1-33% -Tunneling No -Undermining/Tunneling No -Circular Undermining No -Exudate Amt Small Small Small -Exudate Type Serosanguineous Serosanguineous Serous -Wound Margin Fibrotic Scar, Thickened Distinct, Thickened Scar Outline Attached -Granulation Amt Medium (34-66%) Medium (34-66%) Medium (34-66%) -Granulation Quality Red Red -Slough/Fibrin Yes -Necrosis Amt Small (1-33%) Small (1-33%) Small (1-33%) -Necrotic Tissue Type Adherent Slough Adherent Slough -Structure Exposed N/A -Texture (Mahnaz-wound Skin Appearance) Assessed Assessed Assessed -Moisture (Mahnaz-wound Skin Appearance) Assessed Assessed Assessed -Color (Mahnaz-wound Skin Appearance) Assessed, Assessed Assessed Erythema -Temperature (Mahnaz-wound Skin No Abnormality No Abnormality Appearance) (Pt Warm) (Pt Warm) -Tenderness on Palpation (Mahnaz-wound No No Skin Appearance) -Ulcer Cleansing Rinsed/ Soap and Water Soap and Water Irrigated with Saline -Foul Odor after Cleansing No No No -Anesthetic Used 5% Lidocaine 5% Lidocaine 5% Lidocaine Gel Gel Gel WC - Nurse 2 - General Ulcer CM Notes Start: 03/21/23 10:11 Freq: Status: Active Protocol: Activity Type Activity Date Activity User E-sign Co-sign Detail Recorded Client Recorded Date Recorded By Document 03/21/23 10:35 [employer] 03/21/23 10:41 Document 03/28/23 09:30 [employer] Laptop 03/28/23 09:36 Document 04/04/23 10:46 [employer] Laptop 04/04/23 10:50 03/21/23 03/28/23 04/04/23 10:35 09:30 10:46 Wound Center Nurse 2 1. sacral -Time 10:35 09:30 10:47 -Correct Patient Yes Yes Yes -Correct Side, Site, Position Yes Yes Yes -Correct Procedure Yes Yes Yes -Procedure Performed Yes Yes Yes -Type of Procedure Debridement Debridement Debridement -Clinical Debridement Subcutaneous Subcutaneous Subcutaneous -Tissue Removed Subcutaneous Subcutaneous Subcutaneous -Post Debridement (cm) - Length 2.8 2.3 2.3 -Post Debridement (cm) - Width 1.3 1.1 0.7 -Post Debridement (cm) - Depth 0.2 0.1 0.1 -Total Square (Post) (cm) 3.64 2.53 1.61 -Area of Debridement (cm) - Length 2.8 2.3 2.3 -Area of Debridement (cm) - Width 1.3 1.1 0.7 -Total Square (Area) (cm) 3.64 2.53 1.61 -Tunneling No No No -Undermining/Tunneling No No No -Circular Undermining No No No -Wound/Ulcer Outcome Not Healed Not Healed Not Healed -Ulcer Cleansing Rinsed/ Rinsed/ Rinsed/ Irrigated with Irrigated with Irrigated with Saline Saline Saline -Foul Odor after Cleansing No No No -Bioengineered Tissue Yes Yes Yes -Type of Bioengineered Tissue Epifix Epifix Epifix -Expiration Date 11/10/27 12/10/27 12/10/27 -Product Lot Number [id number] -Percent Used 100 100 100 -Lot number of Saline Used [id number] -Bleeding Controlled with Pressure Pressure Pressure -Treatment Response Procedure Procedure Procedure Tolerated Well Tolerated Well Tolerated Well -Offloading No No No -Debridement - Subq, 1st 20sq cm No No No -Apply Skin Sub - 1st 25 sq cm - Legs 1 1 1 -Epifix (per sq cm) 4 4 4 Pain Scale: 0-10 Numeric Is Patient Pain Free? Yes Yes Yes - Nurse 3 - General Ulcer D/C NN Start: 03/21/23 10:11 Freq: Status: Active Protocol: Activity Type Activity Date Activity User E-sign Co-sign Detail Recorded Client Recorded Date Recorded By Document 03/21/23 10:41 Laptop 03/21/23 10:42 Document 03/28/23 09:36 Laptop 03/28/23 09:37 Edit Result 03/28/23 09:36 JF (1) Laptop 03/28/23 09:57 Document 04/04/23 10:59 BMF [id number] 04/04/23 11:00 BMF (1) 1. sacral - Mepilex Border 1 => 2 03/21/23 03/28/23 04/04/23 10:41 09:36 10:59 Wound Care Center Nurse 3 1. sacral -Ulcer Cleansing Rinsed/ Rinsed/ Irrigated with Irrigated with Saline Saline -Foul Odor after Cleansing No No -Primary Dressing Applied Mepilex Border Mepilex Border Mepilex Border -Other Dressing epifix -Primary Dressing Covered/Secured with Dry Gauze Dry Gauze -Mepilex Border 1 2 1 Treatment Response Procedure Tolerated Well Pain Scale: 0-10 Numeric Is Patient Pain Free? Yes Yes Yes - Visit Discharge Discharge Condition Stable Stable Stable Ambulatory Status Ambulatory, Ambulatory, Ambulatory, Walker Walker Walker Transportation Private Auto Private Auto Private Auto Medication Reconcilliation completed & Yes Yes provided to patient/care provider Clinical Summary of Care Provided Yes Yes Assessment/Plan Assessment/Plan (1) Pressure ulcer of sacral region, stage 4: CODE(S): L89.154 - Pressure ulcer of sacral region, stage 4 (2) Rheumatoid arthritis: CODE(S): M06.9 - Rheumatoid arthritis, unspecified (3) Debility: CODE(S): R53.81 - Other malaise PLAN: Plan Patient evaluated at the wound center today. Wound care - She has been approved for Epifix advanced wound healing product. 5th application of Epifix applied today. 100% of the product was used. It was covered with wound veil that was secured with steri strips and then topped with Mepilex silicone border dressing. The outer dressing can be changed as needed. She was instructed not to get this area wet. She has home health who assists her with her dressing changes. Wound culture obtained 12/27/22 which was positive for Corynebacterium striatum which is considered a skin contaminant which there is no need to treat with antibiotics. Wound culture obtained 11/01/22 which was positive for Pseudomonas aeruginosa (very rare amount), Corynebacterium striatum, and Anaerobic cocci. She is allergic to the oral options to treat the Pseudomonas. I spoke with the hospital pharmacist Audra Martinez, on 11/08/22, about her wound culture and she stated that fluoroquinolones are the only option to treat pseudomonas. I discussed with the patient about referring her to ID for further evaluation and treatment but she absolutely refuses to see him because when she was hospitalized, he discussed the possibility of her needing a colostomy and that caused her stress. She completed the Diflucan for her positive operative fungal cultures. Labs drawn on 10/13/22: Total Bili 0.30, AST 17, ALT 20, Alk Phos 151. On 07/25/22 Alk Phos 152. Prealbumin 12.8 on 05/23/22. Encouraged increase protein supplementation. She state she is drinking Tommy 1-2 times per day in addition to her increase in dietary protein. Follow 1 week. Call or come in sooner if develop any questions or concerns.
== END 2023-04-10 23:59 | disposition home or self-care (01) ==
LOC: WC 10:15
PROVIDERS: PCP Family Medicine; Referring Provider Family Medicine; Visit Provider Nurse Practitioner Family
DX: L89.154 Pressure ulcer of sacral region, stage 4 (principal); M06.9 Rheumatoid arthritis, unspecified; R53.81 Other malaise; Z79.82 Long term (current) use of aspirin; Z79.899 Other long term (current) drug therapy
CPT/HCPCS: 15271; Q4186

== ENCOUNTER 2023-05-07 10:15 | Outpatient (RCR) | payer MEDICARE, OTHER, SELFPAY ==
[2023-04-11 00:39] VITALS: BP 134/62; PULSE 55; RESP 18; TEMP 36.2
[2023-04-18 10:13] VITALS: BP 150/77; PULSE 75; TEMP 36.2
--- NOTE | 2023-04-18 16:08 | PN.PCM_ITS ---
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 Surgery 05/22/[address] Lee for Excision necrotic left sacral pressure sore, Stage IV, with partial ostectomy for osteomyelitis. Operative tissue cultures positive for Eschericha coli, Streptococcus sanguinis, Corynebacterium amycolatum, Provotella oralis, Anaerobic cocci, and most recently Fernanda albicans and Aspirgillus fumigatus. Operative bone culture positive for Provotella disiens and Fernanda albicans. She was treated with Levaquin and Augmentin. She developed muscle pain so the Levaquin was switched to Doxycycline. The fungal cultures just recently came back and we will start her on Diflucan. Wound culture obtained 11/01/22 which was positive for Pseudomonas aeruginosa (very rare). Corynebacterium striatum and Anaerobic cocci. With her multiple drug allergies, there is not an oral antibiotic to treat the Pseudomonas, but it is rare, so will start cleansing with chlorhexidine at the time of the dressing change 3 times per week and start her on Augmentin and probiotic. Wound culture from 12/27/22 positive for Corynebacterium striatum which is a skin contaminant. Wound care - She has been approved for Epifix. Today she denies fever, chills, nausea or vomiting. She states she is doing well at home. Progress of Wound: Left sacral ulcer is beefy pink, the ulcer appears smaller this week. Will apply 6th application of Epifix to the ulcer. Objective Data Objective Data Vital Signs: Vital Signs Temp Pulse Resp BP O2 Del Method 97.2 F L 75 18 150/77 H Room Air 04/18/23 10:13 04/18/23 10:13 04/11/23 00:39 04/18/23 10:13 04/18/23 10:13 Oxygen Delivery Method Room Air Weight: 124 lb Body Mass Index (BMI) 20.0 Charges/Coding Procedures Integumentary 150xxx-152xx: 01255 Skin sub graft trnk/arm/leg Debridement Note Debridement Note Wound debrided: Sacral ulcer Laterality: Left Wound Grade/Stage: Stage IV Type of Debridement: Excisional debridement Anesthesia Used: 5% Lidocaine Gel Depth: Down to and including healthy tissue and in the subcutaneous layer Percentage of wound debrided: 100 Instrument Used: 5mm curette Tissue Removed: Devitalized tissue and slough Severity: Fat Layer Exposed Amount of bleeding with debridement: Mild Bleeding Controlled with: Pressure and Compression and gauze Patient tolerated procedure: Patient tolerated procedure well Debridement Free Text: Good bleeding obtained with debridement Post-Debridement Measurements and Additional Note: Post-Debridement Measurements/Treatment - Nurse 1 - General Ulcer Assessment Start: 04/18/23 10:13 Freq: Status: Active Protocol: JUSTIN Activity Type Activity Date Activity User E-sign Co-sign Detail Recorded Client Recorded Date Recorded By Document 04/18/23 10:13 Desktop 04/18/23 10:20 04/18/23 10:13 WC - Today's Visit Information Type of service Follow-up Visit (Physician/AUTOMATIC TYPEWRITER INSPECTOR ) Arrival Mode Ambulatory, Walker Transfer Assistance None Patient Identification Verified (Name & Yes ) Patient Requires Transmission-Based No Precautions Safety Precautions Fall Prevention Height and Weight Body Mass Index (BMI) 20.0 BMI Classification Normal Vital Signs Temperature (97.8 F-99.1 F) 97.2 F L Temperature Source Temporal Pulse Rate (60-100) 75 Pulse Location Monitor Oxygen Delivery Method Room Air Blood Pressure (90/60-120/80) 150/77 H Blood Pressure Mean (mm Hg) 101 Source Monitor Position Supine Blood Pressure Location Left Arm History Since Last Visit- (Skip if this is Patient's initial visit) Have you changed medications since your No last visit? Any new allergies or adverse reactions No Had a fall/change in ADL's that may No increase risk of falls Signs or symptoms of abuse and/or No neglect since last visit Have you been in the hospital since your No last visit? Pain Scale: 0-10 Numeric Is Patient Pain Free? Yes - Nurse 1 - General Ulcer Measurement Start: 04/18/23 10:13 Freq: Status: Active Protocol: Activity Type Activity Date Activity User E-sign Co-sign Detail Recorded Client Recorded Date Recorded By Document 04/18/23 10:13 Desktop 04/18/23 10:20 04/18/23 10:13 Wound Center Nurse 1 1. sacral -Current Size (cm) - Length 6.0 -Current Size (cm) - Width 5.7 -Current Size (cm) - Depth 0.5 -Total Square Cm 34.20 -Date of Last Picture (Recall this 04/18/23 field) -Photo Taken Yes -Epithelialization Medium 34-66% -Exudate Amt Medium -Exudate Type Serous -Wound Margin Distinct, Outline Attached -Granulation Amt Medium (34-66%) -Granulation Quality Red -Necrosis Amt Small (1-33%) -Necrotic Tissue Type Adherent Slough -Texture (Mahnaz-wound Skin Appearance) Assessed -Moisture (Mahnaz-wound Skin Appearance) Assessed -Color (Mahnaz-wound Skin Appearance) Assessed -Ulcer Cleansing Rinsed/ Irrigated with Saline -Foul Odor after Cleansing No -Anesthetic Used 5% Lidocaine Gel WC - Nurse 2 - General Ulcer CM Notes Start: 04/18/23 10:13 Freq: Status: Active Protocol: Activity Type Activity Date Activity User E-sign Co-sign Detail Recorded Client Recorded Date Recorded By Document 04/18/23 10:33 Laptop 04/18/23 10:41 04/18/23 10:33 Wound Center Nurse 2 -Time 10:37 -Correct Patient Yes -Correct Side, Site, Position Yes -Correct Procedure Yes -Procedure Performed Yes -Type of Procedure Debridement -Clinical Debridement Subcutaneous -Tissue Removed Subcutaneous -Post Debridement (cm) - Length 2.0 -Post Debridement (cm) - Width 0.7 -Post Debridement (cm) - Depth 0.2 -Total Square (Post) (cm) 1.40 -Area of Debridement (cm) - Length 2.0 -Area of Debridement (cm) - Width 0.7 -Total Square (Area) (cm) 1.40 -Tunneling No -Undermining/Tunneling No -Circular Undermining No -Wound/Ulcer Outcome Not Healed -Ulcer Cleansing Rinsed/ Irrigated with Saline -Foul Odor after Cleansing No -Bioengineered Tissue Yes -Type of Bioengineered Tissue Epifix 18mm Disc -Expiration Date 12/10/27 -Product Lot Number [id number] -Percent Used 100 -Lot number of Saline Used [id number] -Bleeding Controlled with Pressure -Treatment Response Procedure Tolerated Well -Offloading No -Debridement - Subq, 1st 20sq cm No -Apply Skin Sub - 1st 25 sq cm - Legs 1 -Epifix 18mm Disc 3 Pain Scale: 0-10 Numeric Is Patient Pain Free? Yes - Nurse 3 - General Ulcer D/C NN Start: 04/18/23 10:13 Freq: Status: Active Protocol: Activity Type Activity Date Activity User E-sign Co-sign Detail Recorded Client Recorded Date Recorded By Document 04/18/23 10:45 KW Desktop 04/18/23 10:45 KW 04/18/23 10:45 Wound Care Center Nurse 3 1. sacral -Primary Dressing Applied Mepilex Border -Primary Dressing Covered/Secured with Dry Gauze -Mepilex Border 1 Pain Scale: 0-10 Numeric Is Patient Pain Free? Yes WC - Visit Discharge Discharge Condition Stable Ambulatory Status Ambulatory, Walker Transportation Private Auto Medication Reconcilliation completed & No provided to patient/care provider Clinical Summary of Care Provided Yes Assessment/Plan Assessment/Plan (1) Pressure ulcer of sacral region, stage 4: CODE(S): L89.154 - Pressure ulcer of sacral region, stage 4 (2) Rheumatoid arthritis: CODE(S): M06.9 - Rheumatoid arthritis, unspecified (3) Debility: CODE(S): R53.81 - Other malaise PLAN: Plan Patient evaluated at the wound center today. Wound care - She has been approved for Epifix advanced wound healing product. 5th application of Epifix applied today. 100% of the 18 mm product was used. It was covered with wound veil that was secured with steri strips and then topped with Mepilex silicone border dressing. The outer dressing can be changed as needed. She was instructed not to get this area wet. She has home health who assists her with her dressing changes. Wound culture obtained 12/27/22 which was positive for Corynebacterium striatum which is considered a skin contaminant which there is no need to treat with antibiotics. Wound culture obtained 11/01/22 which was positive for Pseudomonas aeruginosa (very rare amount), Corynebacterium striatum, and Anaerobic cocci. She is allergic to the oral options to treat the Pseudomonas. I spoke with the hospital pharmacist Audra Martinez, on 11/08/22, about her wound culture and she stated that fluoroquinolones are the only option to treat pseudomonas. I discussed with the patient about referring her to ID for further evaluation and treatment but she absolutely refuses to see him because when she was hospitalized, he discussed the possibility of her needing a colostomy and that caused her stress. She completed the Diflucan for her positive operative fungal cultures. Labs drawn on 10/13/22: Total Bili 0.30, AST 17, ALT 20, Alk Phos 151. On 07/25/22 Alk Phos 152. Prealbumin 12.8 on 05/23/22. Encouraged increase protein supplementation. She state she is drinking Tommy 1-2 times per day in addition to her increase in dietary protein. Follow 1 week. Call or come in sooner if develop any questions or concerns.
[2023-04-23 10:13] VITALS: BP 157/76; PULSE 73; RESP 16; TEMP 36.2
--- NOTE | 2023-04-23 11:58 | PCM.WC.PN ---
History of Present Illness Date of Service: 04/23/23 Chief Complaint: Left sacral ulcer History of Wound: 73 year old female with below past medical history suffered fall from second story, hospitalized for multi trauma, underwent left tibia intramedullary nail fixation, right hip anterograde intramedullary nail, complicated by encephalopathy from urinary tract infection, stage 4 left sacral pressure ulcer with chronic osteomyelitis, admitted to TCU on 04/17/22 with debility, there for rehabilitation, strengthening, prior to discharge home alone on 06/25/22 with home health/PT/OT. Surgery 05/22/[address] Lee for Excision necrotic left sacral pressure sore, Stage IV, with partial ostectomy for osteomyelitis. Operative tissue cultures positive for Eschericha coli, Streptococcus sanguinis, Corynebacterium amycolatum, Provotella oralis, Anaerobic cocci, and most recently Fernanda albicans and Aspirgillus fumigatus. Operative bone culture positive for Provotella disiens and Fernanda albicans. She was treated with Levaquin and Augmentin. She developed muscle pain so the Levaquin was switched to Doxycycline. The fungal cultures just recently came back and we will start her on Diflucan. Wound culture obtained 11/01/22 which was positive for Pseudomonas aeruginosa (very rare). Corynebacterium striatum and Anaerobic cocci. With her multiple drug allergies, there is not an oral antibiotic to treat the Pseudomonas, but it is rare, so will start cleansing with chlorhexidine at the time of the dressing change 3 times per week and start her on Augmentin and probiotic. Wound culture from 12/27/22 positive for Corynebacterium striatum which is a skin contaminant. Wound care - She has been approved for Epifix. Today she denies fever, chills, nausea or vomiting. She states she is doing well at home. Progress of Wound: Left sacral ulcer is beefy pink, the ulcer appears smaller this week. Will apply 7th application of Epifix to the ulcer. Objective Data Objective Data Vital Signs: Vital Signs Temp Pulse Resp BP O2 Del Method 97.1 F L 73 16 157/76 H Room Air 04/23/23 10:13 04/23/23 10:13 04/23/23 10:13 04/23/23 10:13 04/23/23 10:13 Oxygen Delivery Method Room Air Weight: 124 lb Body Mass Index (BMI) 20.0 Charges/Coding Procedures Integumentary 150xxx-152xx: 18220 Skin sub graft trnk/arm/leg Debridement Note Debridement Note Wound debrided: Sacral ulcer Laterality: Left Wound Grade/Stage: Stage IV Type of Debridement: Excisional debridement Anesthesia Used: 5% Lidocaine Gel Depth: Down to and including healthy tissue and in the subcutaneous layer Percentage of wound debrided: 100 Instrument Used: 3mm curette Tissue Removed: Devitalized tissue and slough Severity: Fat Layer Exposed Amount of bleeding with debridement: Mild Bleeding Controlled with: Pressure and Compression and gauze Patient tolerated procedure: Patient tolerated procedure well Debridement Free Text: Good bleeding obtained with debridement Post-Debridement Measurements and Additional Note: Post-Debridement Measurements/Treatment - Nurse 1 - General Ulcer Assessment Start: 04/18/23 10:13 Freq: Status: Active Protocol: .SAVANNAH Activity Type Activity Date Activity User E-sign Co-sign Detail Recorded Client Recorded Date Recorded By Document 04/18/23 10:13 [place] 04/18/23 10:20 Document 04/23/23 10:13 [facility] Desktop 04/23/23 10:18 [facility] 04/18/23 04/23/23 10:13 10:13 - Today's Visit Information Type of service Follow-up Visit Follow-up Visit (Physician/DERMATOLOGY TECHNICIAN (Physician/DERMATOLOGY TECHNICIAN ) ) Arrival Mode Ambulatory, Ambulatory, Walker Walker Transfer Assistance None None Patient Identification Verified (Name & Yes Yes ) Patient Requires Transmission-Based No No Precautions Safety Precautions Fall Prevention Height and Weight Body Mass Index (BMI) 20.0 20.0 BMI Classification Normal Normal Vital Signs Temperature (97.8 F-99.1 F) 97.2 F L 97.1 F L Temperature Source Temporal Temporal Pulse Rate (60-100) 75 73 Pulse Location Monitor Monitor Respiratory Rate (12-18) 16 Respiratory rate source Observation Oxygen Delivery Method Room Air Room Air Blood Pressure (90/60-120/80) 150/77 H 157/76 H Blood Pressure Mean (mm Hg) 101 103 Source Monitor Monitor Position Supine Sitting Blood Pressure Location Left Arm Left Arm History Since Last Visit- (Skip if this is Patient's initial visit) Have you changed medications since your No No last visit? Any new allergies or adverse reactions No No Had a fall/change in ADL's that may No No increase risk of falls Signs or symptoms of abuse and/or No No neglect since last visit Have you been in the hospital since your No No last visit? Has dressing in place as prescribed Yes Has compression in place as prescribed N/A Has offloadiing in place as prescribed N/A Experienced any changes in pain level or No management Left Footwear Regular Shoe Right Footwear Regular Shoe Pain Scale: 0-10 Numeric Is Patient Pain Free? Yes Yes WC - Nurse 1 - General Ulcer Measurement Start: 04/18/23 10:13 Freq: Status: Active Protocol: Activity Type Activity Date Activity User E-sign Co-sign Detail Recorded Client Recorded Date Recorded By Document 04/18/23 10:13 Desktop 04/18/23 10:20 GM Document 04/23/23 10:13 [facility] Desktop 04/23/23 10:18 BM 04/18/23 04/23/23 10:13 10:13 Wound Center Nurse 1 1. sacral -Combined with other wound No -Current Size (cm) - Length 6.0 4.7 -Current Size (cm) - Width 5.7 3.7 -Current Size (cm) - Depth 0.5 0.4 -Total Square Cm 34.20 17.39 -Date of Last Picture (Recall this 04/18/23 field) -Photo Taken Yes -Epithelialization Medium 34-66% Small 1-33% -Tunneling No -Undermining/Tunneling No -Circular Undermining No -Exudate Amt Medium Large -Exudate Type Serous Serosanguineous -Wound Margin Distinct, Outline Attached -Granulation Amt Medium (34-66%) Large (67-100%) -Granulation Quality Red Red -Slough/Fibrin No -Necrosis Amt Small (1-33%) None Present (0 %) -Necrotic Tissue Type Adherent Slough -Texture (Mahnaz-wound Skin Appearance) Assessed Assessed, Scarring -Moisture (Mahnaz-wound Skin Appearance) Assessed Assessed -Color (Mahnaz-wound Skin Appearance) Assessed Assessed, Erythema -Temperature (Mahnaz-wound Skin No Abnormality Appearance) (Pt Warm) -Tenderness on Palpation (Mahnaz-wound No Skin Appearance) -Ulcer Cleansing Rinsed/ Soap and Water Irrigated with Saline -Foul Odor after Cleansing No No -Anesthetic Used 5% Lidocaine 5% Lidocaine Gel Gel WC - Nurse 2 - General Ulcer CM Notes Start: 04/18/23 10:13 Freq: Status: Active Protocol: Activity Type Activity Date Activity User E-sign Co-sign Detail Recorded Client Recorded Date Recorded By Document 04/18/23 10:33 Laptop 04/18/23 10:41 Document 04/23/23 10:34 Laptop 04/23/23 10:43 04/18/23 04/23/23 10:33 10:34 Wound Center Nurse 2 1. sacral -Time 10:37 10:39 -Correct Patient Yes Yes -Correct Side, Site, Position Yes Yes -Correct Procedure Yes Yes -Procedure Performed Yes Yes -Type of Procedure Debridement Debridement -Clinical Debridement Subcutaneous Subcutaneous -Tissue Removed Subcutaneous Subcutaneous -Post Debridement (cm) - Length 2.0 1.8 -Post Debridement (cm) - Width 0.7 0.6 -Post Debridement (cm) - Depth 0.2 0.2 -Total Square (Post) (cm) 1.40 1.08 -Area of Debridement (cm) - Length 2.0 1.8 -Area of Debridement (cm) - Width 0.7 0.6 -Total Square (Area) (cm) 1.40 1.08 -Tunneling No No -Undermining/Tunneling No No -Circular Undermining No No -Wound/Ulcer Outcome Not Healed Not Healed -Ulcer Cleansing Rinsed/ Rinsed/ Irrigated with Irrigated with Saline Saline -Foul Odor after Cleansing No No -Bioengineered Tissue Yes Yes -Type of Bioengineered Tissue Epifix 18mm Epifix 18mm Disc Disc -Expiration Date 12/10/27 12/10/27 -Product Lot Number [id number] -Percent Used 100 100 -Lot number of Saline Used [id number] -Bleeding Controlled with Pressure Pressure -Treatment Response Procedure Procedure Tolerated Well Tolerated Well -Offloading No No -Debridement - Subq, 1st 20sq cm No No -Apply Skin Sub - 1st 25 sq cm - Legs 1 1 -Epifix 18mm Disc 3 3 Pain Scale: 0-10 Numeric Is Patient Pain Free? Yes Yes BRADEN - Nurse 3 - General Ulcer D/C NN Start: 04/18/23 10:13 Freq: Status: Active Protocol: Activity Type Activity Date Activity User E-sign Co-sign Detail Recorded Client Recorded Date Recorded By Document 04/18/23 10:45 KW Desktop 04/18/23 10:45 KW Document 04/23/23 10:43 Laptop 04/23/23 10:43 04/18/23 04/23/23 10:45 10:43 Wound Care Center Nurse 3 1. sacral -Ulcer Cleansing Rinsed/ Irrigated with Saline -Foul Odor after Cleansing No -Primary Dressing Applied Mepilex Border Mepilex Border -Primary Dressing Covered/Secured with Dry Gauze Dry Gauze -Mepilex Border 1 1 Pain Scale: 0-10 Numeric Is Patient Pain Free? Yes Yes WC - Visit Discharge Discharge Condition Stable Stable Ambulatory Status Ambulatory, Ambulatory, Walker Walker Transportation Private Auto Private Auto Medication Reconcilliation completed & No Yes provided to patient/care provider Clinical Summary of Care Provided Yes Yes Assessment/Plan Assessment/Plan (1) Pressure ulcer of sacral region, stage 4: CODE(S): L89.154 - Pressure ulcer of sacral region, stage 4 (2) Rheumatoid arthritis: CODE(S): M06.9 - Rheumatoid arthritis, unspecified (3) Debility: CODE(S): R53.81 - Other malaise PLAN: Plan Patient evaluated at the wound center today. Wound care - She has been approved for Epifix advanced wound healing product. 7th application of Epifix applied today. 100% of the 18 mm product was used. It was covered with wound veil that was secured with steri strips and then topped with Mepilex silicone border dressing. The outer dressing can be changed as needed. She was instructed not to get this area wet. She has home health who assists her with her dressing changes. Wound culture obtained 12/27/22 which was positive for Corynebacterium striatum which is considered a skin contaminant which there is no need to treat with antibiotics. Wound culture obtained 11/01/22 which was positive for Pseudomonas aeruginosa (very rare amount), Corynebacterium striatum, and Anaerobic cocci. She is allergic to the oral options to treat the Pseudomonas. I spoke with the hospital pharmacist Audra Martinez, on 11/08/22, about her wound culture and she stated that fluoroquinolones are the only option to treat pseudomonas. She completed the Diflucan for her positive operative fungal cultures. Labs drawn on 10/13/22: Total Bili 0.30, AST 17, ALT 20, Alk Phos 151. On 07/25/22 Alk Phos 152. Prealbumin 12.8 on 05/23/22. Encouraged increase protein supplementation. She state she is drinking Tommy 1-2 times per day in addition to her increase in dietary protein. Follow 1 week. Call or come in sooner if develop any questions or concerns.
[2023-04-30 10:18] VITALS: BP 132/57; PULSE 65; RESP 18; TEMP 36.1
--- NOTE | 2023-04-30 10:57 | PCM.WC.PN ---
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 Surgery 05/22/[address] Lee for Excision necrotic left sacral pressure sore, Stage IV, with partial ostectomy for osteomyelitis. Operative tissue cultures positive for Eschericha coli, Streptococcus sanguinis, Corynebacterium amycolatum, Provotella oralis, Anaerobic cocci, and most recently Fernanda albicans and Aspirgillus fumigatus. Operative bone culture positive for Provotella disiens and Fernanda albicans. She was treated with Levaquin and Augmentin. She developed muscle pain so the Levaquin was switched to Doxycycline. The fungal cultures just recently came back and we will start her on Diflucan. Wound culture obtained 11/01/22 which was positive for Pseudomonas aeruginosa (very rare). Corynebacterium striatum and Anaerobic cocci. With her multiple drug allergies, there is not an oral antibiotic to treat the Pseudomonas, but it is rare, so will start cleansing with chlorhexidine at the time of the dressing change 3 times per week and start her on Augmentin and probiotic. Wound culture from 12/27/22 positive for Corynebacterium striatum which is a skin contaminant. Wound care - She has been approved for Epifix. Today she denies fever, chills, nausea or vomiting. She states she is doing well at home. Progress of Wound: Left sacral ulcer is beefy pink, the ulcer is smaller this week. Will apply 8th application of Epifix to the ulcer. Objective Data Objective Data Vital Signs: Vital Signs Temp Pulse Resp BP O2 Del Method 97 F L 65 18 132/57 H Room Air 04/30/23 10:18 04/30/23 10:18 04/30/23 10:18 04/30/23 10:18 04/23/23 10:13 Oxygen Delivery Method Room Air Weight: 124 lb Body Mass Index (BMI) 20.0 Charges/Coding Procedures Integumentary 150xxx-152xx: [id number] Skin sub graft trnk/arm/leg Debridement Note Debridement Note Wound debrided: Sacral ulcer Laterality: Left Wound Grade/Stage: Stage IV Type of Debridement: Excisional debridement Anesthesia Used: 5% Lidocaine Gel Depth: Down to and including healthy tissue and in the subcutaneous layer Percentage of wound debrided: 100 Instrument Used: 3mm curette Tissue Removed: Devitalized tissue and slough Severity: Fat Layer Exposed Amount of bleeding with debridement: Mild Bleeding Controlled with: Pressure and Compression and gauze Patient tolerated procedure: Patient tolerated procedure well Debridement Free Text: Good bleeding obtained with debridement Post-Debridement Measurements and Additional Note: Post-Debridement Measurements/Treatment - Nurse 1 - General Ulcer Assessment Start: 04/18/23 10:13 Freq: Status: Active Protocol: .SAVANNAH Activity Type Activity Date Activity User E-sign Co-sign Detail Recorded Client Recorded Date Recorded By Document 04/18/23 10:13 Desktop 04/18/23 10:20 GM Document 04/23/23 10:13 BMF Desktop 04/23/23 10:18 [facility] Document 04/30/23 10:18 DL Desktop 04/30/23 10:21 DL Edit Result 04/30/23 10:18 DL (1) [id number] 04/30/23 10:29 DL (1) Pulse Rate (60-100) => 65 Pulse Location => Monitor Blood Pressure (90/60-120/80) => 132/57 H Blood Pressure Mean => 82 Source => Monitor 04/18/23 04/23/23 04/30/23 10:13 10:13 10:18 - Today's Visit Information Type of service Follow-up Visit Follow-up Visit Follow-up Visit (Physician/APPLICATIONS PROCESSOR (Physician/APPLICATIONS PROCESSOR (Physician/APPLICATIONS PROCESSOR ) ) ) Arrival Mode Ambulatory, Ambulatory, Ambulatory, Walker Walker Walker Transfer Assistance None None None Patient Identification Verified (Name & Yes Yes Yes ) Patient Requires Transmission-Based No No No Precautions Safety Precautions Fall Prevention Height and Weight Body Mass Index (BMI) 20.0 20.0 20.0 BMI Classification Normal Normal Normal Vital Signs Temperature (97.8 F-99.1 F) 97.2 F L 97.1 F L 97 F L Temperature Source Temporal Temporal Temporal Pulse Rate (60-100) 75 73 65 Pulse Location Monitor Monitor Monitor Respiratory Rate (12-18) 16 18 Respiratory rate source Observation Observation Oxygen Delivery Method Room Air Room Air Blood Pressure (90/60-120/80) 150/77 H 157/76 H 132/57 H Blood Pressure Mean 101 103 82 Source Monitor Monitor Monitor Position Supine Sitting Blood Pressure Location Left Arm Left Arm History Since Last Visit- (Skip if this is Patient's initial visit) Have you changed medications since your No No No last visit? Any new allergies or adverse reactions No No No Had a fall/change in ADL's that may No No No increase risk of falls Signs or symptoms of abuse and/or No No No neglect since last visit Have you been in the hospital since your No No No last visit? Has dressing in place as prescribed Yes Yes Has compression in place as prescribed N/A N/A Has offloadiing in place as prescribed N/A Yes Experienced any changes in pain level or No No management Left Footwear Regular Shoe Right Footwear Regular Shoe Pain Scale: 0-10 Numeric Is Patient Pain Free? Yes Yes Yes - Nurse 1 - General Ulcer Measurement Start: 04/18/23 10:13 Freq: Status: Active Protocol: Activity Type Activity Date Activity User E-sign Co-sign Detail Recorded Client Recorded Date Recorded By Document 04/18/23 10:13 Desktop 04/18/23 10:20 Document 04/23/23 10:13 [facility] Desktop 04/23/23 10:18 [facility] Document 04/30/23 10:18 Desktop 04/30/23 10:21 DL 04/18/23 04/23/23 04/30/23 10:13 10:13 10:18 Wound Center Nurse 1 1. sacral -Combined with other wound No -Current Size (cm) - Length 6.0 4.7 0.5 -Current Size (cm) - Width 5.7 3.7 1.7 -Current Size (cm) - Depth 0.5 0.4 0.2 -Total Square Cm 34.20 17.39 0.85 -Date of Last Picture (Recall this 04/18/23 field) -Photo Taken Yes -Epithelialization Medium 34-66% Small 1-33% -Tunneling No -Undermining/Tunneling No -Circular Undermining No -Exudate Amt Medium Large Small -Exudate Type Serous Serosanguineous Serosanguineous -Wound Margin Distinct, Thickened & Outline Rolled Under Attached -Granulation Amt Medium (34-66%) Large (67-100%) Large (67-100%) -Granulation Quality Red Red Red -Slough/Fibrin No -Necrosis Amt Small (1-33%) None Present (0 Small (1-33%) %) -Necrotic Tissue Type Adherent Slough Eschar -Structure Exposed N/A -Texture (Mahnaz-wound Skin Appearance) Assessed Assessed, Scarring Scarring -Moisture (Mahnaz-wound Skin Appearance) Assessed Assessed No Abnormality -Color (Mahnaz-wound Skin Appearance) Assessed Assessed, No Abnormality Erythema -Temperature (Mahnaz-wound Skin No Abnormality No Abnormality Appearance) (Pt Warm) (Pt Warm) -Tenderness on Palpation (Mahnaz-wound No No Skin Appearance) -Ulcer Cleansing Rinsed/ Soap and Water Soap and Water Irrigated with Saline -Foul Odor after Cleansing No No No -Anesthetic Used 5% Lidocaine 5% Lidocaine 5% Lidocaine Gel Gel Gel WC - Nurse 2 - General Ulcer CM Notes Start: 04/18/23 10:13 Freq: Status: Active Protocol: Activity Type Activity Date Activity User E-sign Co-sign Detail Recorded Client Recorded Date Recorded By Document 04/18/23 10:33 Laptop 04/18/23 10:41 Document 04/23/23 10:34 Laptop 04/23/23 10:43 Document 04/30/23 10:38 Laptop 04/30/23 10:45 04/18/23 04/23/23 04/30/23 10:33 10:34 10:38 Wound Center Nurse 2 1. sacral -Time 10:37 10:39 10:38 -Correct Patient Yes Yes Yes -Correct Side, Site, Position Yes Yes Yes -Correct Procedure Yes Yes Yes -Procedure Performed Yes Yes Yes -Type of Procedure Debridement Debridement Debridement -Clinical Debridement Subcutaneous Subcutaneous Subcutaneous -Tissue Removed Subcutaneous Subcutaneous Subcutaneous -Post Debridement (cm) - Length 2.0 1.8 1.8 -Post Debridement (cm) - Width 0.7 0.6 0.4 -Post Debridement (cm) - Depth 0.2 0.2 0.2 -Total Square (Post) (cm) 1.40 1.08 0.72 -Area of Debridement (cm) - Length 2.0 1.8 1.8 -Area of Debridement (cm) - Width 0.7 0.6 0.4 -Total Square (Area) (cm) 1.40 1.08 0.72 -Tunneling No No No -Undermining/Tunneling No No No -Circular Undermining No No No -Wound/Ulcer Outcome Not Healed Not Healed Not Healed -Ulcer Cleansing Rinsed/ Rinsed/ Rinsed/ Irrigated with Irrigated with Irrigated with Saline Saline Saline -Foul Odor after Cleansing No No No -Bioengineered Tissue Yes Yes Yes -Type of Bioengineered Tissue Epifix 18mm Epifix 18mm Epifix 18mm Disc Disc Disc -Expiration Date 12/10/27 12/10/27 12/10/27 -Product Lot Number [id number] -Percent Used 100 100 100 -Lot number of Saline Used [id number] -Bleeding Controlled with Pressure Pressure Pressure -Treatment Response Procedure Procedure Procedure Tolerated Well Tolerated Well Tolerated Well -Offloading No No No -Debridement - Subq, 1st 20sq cm No No No -Apply Skin Sub - 1st 25 sq cm - Legs 1 1 1 -Epifix 18mm Disc 3 3 3 Pain Scale: 0-10 Numeric Is Patient Pain Free? Yes Yes Yes - Nurse 3 - General Ulcer D/C NN Start: 04/18/23 10:13 Freq: Status: Active Protocol: Activity Type Activity Date Activity User E-sign Co-sign Detail Recorded Client Recorded Date Recorded By Document 04/18/23 10:45 Desktop 04/18/23 10:45 Document 04/23/23 10:43 Laptop 04/23/23 10:43 Document 04/30/23 10:45 Laptop 04/30/23 10:46 04/18/23 04/23/23 04/30/23 10:45 10:43 10:45 Wound Care Center Nurse 3 1. sacral -Ulcer Cleansing Rinsed/ Rinsed/ Irrigated with Irrigated with Saline Saline -Foul Odor after Cleansing No -Primary Dressing Applied Mepilex Border Mepilex Border Mepilex Border -Primary Dressing Covered/Secured with Dry Gauze Dry Gauze Dry Gauze -Mepilex Border 1 1 1 Pain Scale: 0-10 Numeric Is Patient Pain Free? Yes Yes Yes WC - Visit Discharge Discharge Condition Stable Stable Stable Ambulatory Status Ambulatory, Ambulatory, Ambulatory, Walker Walker Walker Transportation Private Auto Private Auto Private Auto Medication Reconcilliation completed & No Yes No provided to patient/care provider Clinical Summary of Care Provided Yes Yes No Assessment/Plan Assessment/Plan (1) Pressure ulcer of sacral region, stage 4: CODE(S): L89.154 - Pressure ulcer of sacral region, stage 4 (2) Rheumatoid arthritis: CODE(S): M06.9 - Rheumatoid arthritis, unspecified (3) Debility: CODE(S): R53.81 - Other malaise PLAN: Plan Patient evaluated at the wound center today. Wound care - She has been approved for Epifix advanced wound healing product. 8th application of Epifix applied today. 100% of the 18 mm product was used. It was covered with wound veil that was secured with steri strips and then topped with Mepilex silicone border dressing. The outer dressing can be changed as needed. She was instructed not to get this area wet. She has home health who assists her with her dressing changes. Wound culture obtained 12/27/22 which was positive for Corynebacterium striatum which is considered a skin contaminant which there is no need to treat with antibiotics. Wound culture obtained 11/01/22 which was positive for Pseudomonas aeruginosa (very rare amount), Corynebacterium striatum, and Anaerobic cocci. She is allergic to the oral options to treat the Pseudomonas. I spoke with the hospital pharmacist Audra Martinez, on 11/08/22, about her wound culture and she stated that fluoroquinolones are the only option to treat pseudomonas. She completed the Diflucan for her positive operative fungal cultures. Labs drawn on 10/13/22: Total Bili 0.30, AST 17, ALT 20, Alk Phos 151. On 07/25/22 Alk Phos 152. Prealbumin 12.8 on 05/23/22. Encouraged increase protein supplementation. She state she is drinking Tommy 1-2 times per day in addition to her increase in dietary protein. Follow 1 week. Call or come in sooner if develop any questions or concerns.
[2023-05-07 10:05] VITALS: BP 169/70; PULSE 70; RESP 16; TEMP 36.4
--- NOTE | 2023-05-07 10:40 | PN.PCM_ITS ---
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 Surgery 05/22/[address] Lee for Excision necrotic left sacral pressure sore, Stage IV, with partial ostectomy for osteomyelitis. Operative tissue cultures positive for Eschericha coli, Streptococcus sanguinis, Corynebacterium amycolatum, Provotella oralis, Anaerobic cocci, and most recently Fernanda albicans and Aspirgillus fumigatus. Operative bone culture positive for Provotella disiens and Fernanda albicans. She was treated with Levaquin and Augmentin. She developed muscle pain so the Levaquin was switched to Doxycycline. The fungal cultures just recently came back and we will start her on Diflucan. Wound culture obtained 11/01/22 which was positive for Pseudomonas aeruginosa (very rare). Corynebacterium striatum and Anaerobic cocci. With her multiple drug allergies, there is not an oral antibiotic to treat the Pseudomonas, but it is rare, so will start cleansing with chlorhexidine at the time of the dressing change 3 times per week and start her on Augmentin and probiotic. Wound culture from 12/27/22 positive for Corynebacterium striatum which is a skin contaminant. Wound care - She has been approved for Epifix. Today she denies fever, chills, nausea or vomiting. She states she is doing well at home. Progress of Wound: Left sacral ulcer is beefy pink, the ulcer is stable this week. Will apply the 9th application of Epifix to the ulcer. Objective Data Objective Data Vital Signs: Vital Signs Temp Pulse Resp BP O2 Del Method 97.5 F L 70 16 169/70 H Room Air 05/07/23 10:05 05/07/23 10:05 05/07/23 10:05 05/07/23 10:05 05/07/23 10:05 Oxygen Delivery Method Room Air Weight: 124 lb Body Mass Index (BMI) 20.0 Charges/Coding Procedures Integumentary 150xxx-152xx: 21017 Skin sub graft trnk/arm/leg Debridement Note Debridement Note Wound debrided: Sacral ulcer Laterality: Left Wound Grade/Stage: Stage IV Type of Debridement: Excisional debridement Anesthesia Used: 5% Lidocaine Gel Depth: Down to and including healthy tissue and in the subcutaneous layer Percentage of wound debrided: 100 Instrument Used: 5mm curette Tissue Removed: Devitalized tissue and slough Severity: Fat Layer Exposed Amount of bleeding with debridement: Mild Bleeding Controlled with: Pressure and Compression and gauze Patient tolerated procedure: Patient tolerated procedure well Debridement Free Text: Good bleeding obtained with debridement Post-Debridement Measurements and Additional Note: Post-Debridement Measurements/Treatment - Nurse 1 - General Ulcer Assessment Start: 04/18/23 10:13 Freq: Status: Active Protocol: JUSTIN Activity Type Activity Date Activity User E-sign Co-sign Detail Recorded Client Recorded Date Recorded By Document 04/18/23 10:13 GM Desktop 04/18/23 10:20 GM Document 04/23/23 10:13 BMF Desktop 04/23/23 10:18 BMF Document 04/30/23 10:18 DL Desktop 04/30/23 10:21 DL Edit Result 04/30/23 10:18 DL (1) [id number] 04/30/23 10:29 DL Document 05/07/23 10:05 GM Desktop 05/07/23 10:14 GM (1) Pulse Rate (60-100) => 65 Pulse Location => Monitor Blood Pressure (90/60-120/80) => 132/57 H Blood Pressure Mean (mm Hg) => 82 Source => Monitor 04/18/23 04/23/23 04/30/23 10:13 10:13 10:18 - Today's Visit Information Type of service Follow-up Visit Follow-up Visit Follow-up Visit (Physician/INDUSTRIAL RELATIONS MANAGER (Physician/INDUSTRIAL RELATIONS MANAGER (Physician/INDUSTRIAL RELATIONS MANAGER ) ) ) Arrival Mode Ambulatory, Ambulatory, Ambulatory, Walker Walker Walker Transfer Assistance None None None Patient Identification Verified (Name & Yes Yes Yes ) Patient Requires Transmission-Based No No No Precautions Safety Precautions Fall Prevention Height and Weight Body Mass Index (BMI) 20.0 20.0 20.0 BMI Classification Normal Normal Normal Vital Signs Temperature (97.8 F-99.1 F) 97.2 F L 97.1 F L 97 F L Temperature Source Temporal Temporal Temporal Pulse Rate (60-100) 75 73 65 Pulse Location Monitor Monitor Monitor Respiratory Rate (12-18) 16 18 Respiratory rate source Observation Observation Oxygen Delivery Method Room Air Room Air Blood Pressure (90/60-120/80) 150/77 H 157/76 H 132/57 H Blood Pressure Mean (mm Hg) 101 103 82 Source Monitor Monitor Monitor Position Supine Sitting Blood Pressure Location Left Arm Left Arm History Since Last Visit- (Skip if this is Patient's initial visit) Have you changed medications since your No No No last visit? Any new allergies or adverse reactions No No No Had a fall/change in ADL's that may No No No increase risk of falls Signs or symptoms of abuse and/or No No No neglect since last visit Have you been in the hospital since your No No No last visit? Has dressing in place as prescribed Yes Yes Has compression in place as prescribed N/A N/A Has offloadiing in place as prescribed N/A Yes Experienced any changes in pain level or No No management Left Footwear Regular Shoe Right Footwear Regular Shoe Pain Scale: 0-10 Numeric Is Patient Pain Free? Yes Yes Yes 05/07/23 10:05 WC - Today's Visit Information Type of service Follow-up Visit (Physician/INDUSTRIAL RELATIONS MANAGER ) Arrival Mode Ambulatory, Walker Transfer Assistance None Patient Identification Verified (Name & Yes ) Patient Requires Transmission-Based No Precautions Safety Precautions Height and Weight Body Mass Index (BMI) 20.0 BMI Classification Normal Vital Signs Temperature (97.8 F-99.1 F) 97.5 F L Temperature Source Temporal Pulse Rate (60-100) 70 Pulse Location Monitor Respiratory Rate (12-18) 16 Respiratory rate source Observation Oxygen Delivery Method Room Air Blood Pressure (90/60-120/80) 169/70 H Blood Pressure Mean (mm Hg) 103 Source Monitor Position Sitting Blood Pressure Location Left Arm History Since Last Visit- (Skip if this is Patient's initial visit) Have you changed medications since your No last visit? Any new allergies or adverse reactions No Had a fall/change in ADL's that may No increase risk of falls Signs or symptoms of abuse and/or No neglect since last visit Have you been in the hospital since your No last visit? Has dressing in place as prescribed Yes Has compression in place as prescribed N/A Has offloadiing in place as prescribed N/A Experienced any changes in pain level or management Left Footwear Regular Shoe Right Footwear Regular Shoe Pain Scale: 0-10 Numeric Is Patient Pain Free? Yes WC - Nurse 1 - General Ulcer Measurement Start: 04/18/23 10:13 Freq: Status: Active Protocol: Activity Type Activity Date Activity User E-sign Co-sign Detail Recorded Client Recorded Date Recorded By Document 04/18/23 10:13 GM Desktop 04/18/23 10:20 GM Document 04/23/23 10:13 BMF Desktop 04/23/23 10:18 BMF Document 04/30/23 10:18 DL Desktop 04/30/23 10:21 DL Document 05/07/23 10:05 GM Desktop 05/07/23 10:14 GM 04/18/23 04/23/23 04/30/23 10:13 10:13 10:18 Wound Center Nurse 1 1. sacral -Combined with other wound No -Current Size (cm) - Length 6.0 4.7 0.5 -Current Size (cm) - Width 5.7 3.7 1.7 -Current Size (cm) - Depth 0.5 0.4 0.2 -Total Square Cm 34.20 17.39 0.85 -Date of Last Picture (Recall this 04/18/23 field) -Photo Taken Yes -Epithelialization Medium 34-66% Small 1-33% -Tunneling No -Undermining/Tunneling No -Circular Undermining No -Exudate Amt Medium Large Small -Exudate Type Serous Serosanguineous Serosanguineous -Wound Margin Distinct, Thickened & Outline Rolled Under Attached -Granulation Amt Medium (34-66%) Large (67-100%) Large (67-100%) -Granulation Quality Red Red Red -Slough/Fibrin No -Necrosis Amt Small (1-33%) None Present (0 Small (1-33%) %) -Necrotic Tissue Type Adherent Slough Eschar -Structure Exposed N/A -Texture (Mahnaz-wound Skin Appearance) Assessed Assessed, Scarring Scarring -Moisture (Mahnaz-wound Skin Appearance) Assessed Assessed No Abnormality -Color (Mahnaz-wound Skin Appearance) Assessed Assessed, No Abnormality Erythema -Temperature (Mahnaz-wound Skin No Abnormality No Abnormality Appearance) (Pt Warm) (Pt Warm) -Tenderness on Palpation (Mahnaz-wound No No Skin Appearance) -Ulcer Cleansing Rinsed/ Soap and Water Soap and Water Irrigated with Saline -Foul Odor after Cleansing No No No -Anesthetic Used 5% Lidocaine 5% Lidocaine 5% Lidocaine Gel Gel Gel 05/07/23 10:05 Wound Center Nurse 1 1. sacral -Combined with other wound No -Current Size (cm) - Length -Current Size (cm) - Width -Current Size (cm) - Depth -Total Square Cm -Date of Last Picture (Recall this field) -Photo Taken -Epithelialization Medium 34-66% -Tunneling No -Undermining/Tunneling No -Circular Undermining No -Exudate Amt Medium -Exudate Type Serosanguineous -Wound Margin Distinct, Outline Attached -Granulation Amt Medium (34-66%) -Granulation Quality Red -Slough/Fibrin -Necrosis Amt None Present (0 %) -Necrotic Tissue Type -Structure Exposed N/A -Texture (Mahnaz-wound Skin Appearance) Assessed -Moisture (Mahnaz-wound Skin Appearance) Assessed -Color (Mahnaz-wound Skin Appearance) Assessed -Temperature (Mahnaz-wound Skin No Abnormality Appearance) (Pt Warm) -Tenderness on Palpation (Mahnaz-wound Skin Appearance) -Ulcer Cleansing Soap and Water -Foul Odor after Cleansing No -Anesthetic Used 5% Lidocaine Gel WC - Nurse 2 - General Ulcer CM Notes Start: 04/18/23 10:13 Freq: Status: Active Protocol: Activity Type Activity Date Activity User E-sign Co-sign Detail Recorded Client Recorded Date Recorded By Document 04/18/23 10:33 Laptop 04/18/23 10:41 Document 04/23/23 10:34 [employer] 04/23/23 10:43 Document 04/30/23 10:38 [employer] 04/30/23 10:45 Document 05/07/23 10:21 Laptop 05/07/23 10:27 04/18/23 04/23/23 04/30/23 10:33 10:34 10:38 Wound Center Nurse 2 1. sacral -Time 10:37 10:39 10:38 -Correct Patient Yes Yes Yes -Correct Side, Site, Position Yes Yes Yes -Correct Procedure Yes Yes Yes -Procedure Performed Yes Yes Yes -Type of Procedure Debridement Debridement Debridement -Clinical Debridement Subcutaneous Subcutaneous Subcutaneous -Tissue Removed Subcutaneous Subcutaneous Subcutaneous -Post Debridement (cm) - Length 2.0 1.8 1.8 -Post Debridement (cm) - Width 0.7 0.6 0.4 -Post Debridement (cm) - Depth 0.2 0.2 0.2 -Total Square (Post) (cm) 1.40 1.08 0.72 -Area of Debridement (cm) - Length 2.0 1.8 1.8 -Area of Debridement (cm) - Width 0.7 0.6 0.4 -Total Square (Area) (cm) 1.40 1.08 0.72 -Tunneling No No No -Undermining/Tunneling No No No -Circular Undermining No No No -Wound/Ulcer Outcome Not Healed Not Healed Not Healed -Ulcer Cleansing Rinsed/ Rinsed/ Rinsed/ Irrigated with Irrigated with Irrigated with Saline Saline Saline -Foul Odor after Cleansing No No No -Bioengineered Tissue Yes Yes Yes -Type of Bioengineered Tissue Epifix 18mm Epifix 18mm Epifix 18mm Disc Disc Disc -Expiration Date 12/10/27 12/10/27 12/10/27 -Product Lot Number [id number] -Percent Used 100 100 100 -Lot number of Saline Used [id number] -Bleeding Controlled with Pressure Pressure Pressure -Treatment Response Procedure Procedure Procedure Tolerated Well Tolerated Well Tolerated Well -Offloading No No No -Debridement - Subq, 1st 20sq cm No No No -Apply Skin Sub - 1st 25 sq cm - Legs 1 1 1 -Epifix 18mm Disc 3 3 3 Pain Scale: 0-10 Numeric Is Patient Pain Free? Yes Yes Yes 05/07/23 10:21 Wound Center Nurse 2 1. sacral -Time 10:22 -Correct Patient Yes -Correct Side, Site, Position Yes -Correct Procedure Yes -Procedure Performed Yes -Type of Procedure Debridement -Clinical Debridement Subcutaneous -Tissue Removed Subcutaneous -Post Debridement (cm) - Length 1.6 -Post Debridement (cm) - Width 0.6 -Post Debridement (cm) - Depth 0.2 -Total Square (Post) (cm) 0.96 -Area of Debridement (cm) - Length 1.6 -Area of Debridement (cm) - Width 0.6 -Total Square (Area) (cm) 0.96 -Tunneling No -Undermining/Tunneling No -Circular Undermining No -Wound/Ulcer Outcome Not Healed -Ulcer Cleansing Rinsed/ Irrigated with Saline -Foul Odor after Cleansing No -Bioengineered Tissue Yes -Type of Bioengineered Tissue Epifix 18mm Disc -Expiration Date 12/10/27 -Product Lot Number [id number] -Percent Used 100 -Lot number of Saline Used [id number] -Bleeding Controlled with Pressure -Treatment Response Procedure Tolerated Well -Offloading No -Debridement - Subq, 1st 20sq cm No -Apply Skin Sub - 1st 25 sq cm - Legs 1 -Epifix 18mm Disc 3 Pain Scale: 0-10 Numeric Is Patient Pain Free? Yes - Nurse 3 - General Ulcer D/C NN Start: 04/18/23 10:13 Freq: Status: Active Protocol: Activity Type Activity Date Activity User E-sign Co-sign Detail Recorded Client Recorded Date Recorded By Document 04/18/23 10:45 [employer] Desktop 04/18/23 10:45 [employer] Document 04/23/23 10:43 Laptop 04/23/23 10:43 Document 04/30/23 10:45 Laptop 04/30/23 10:46 Document 05/07/23 10:31 Laptop 05/07/23 10:31 04/18/23 04/23/23 04/30/23 10:45 10:43 10:45 Wound Care Center Nurse 3 1. sacral -Ulcer Cleansing Rinsed/ Rinsed/ Irrigated with Irrigated with Saline Saline -Foul Odor after Cleansing No -Primary Dressing Applied Mepilex Border Mepilex Border Mepilex Border -Primary Dressing Covered/Secured with Dry Gauze Dry Gauze Dry Gauze -Mepilex Border 1 1 1 Pain Scale: 0-10 Numeric Is Patient Pain Free? Yes Yes Yes - Visit Discharge Discharge Condition Stable Stable Stable Ambulatory Status Ambulatory, Ambulatory, Ambulatory, Walker Walker Walker Transportation Private Auto Private Auto Private Auto Medication Reconcilliation completed & No Yes No provided to patient/care provider Clinical Summary of Care Provided Yes Yes No 05/07/23 10:31 Wound Care Center Nurse 3 1. sacral -Ulcer Cleansing Rinsed/ Irrigated with Saline -Foul Odor after Cleansing No -Primary Dressing Applied Mepilex Border -Primary Dressing Covered/Secured with -Mepilex Border 1 Pain Scale: 0-10 Numeric Is Patient Pain Free? Yes WC - Visit Discharge Discharge Condition Stable Ambulatory Status Ambulatory, Walker Transportation Private Auto Medication Reconcilliation completed & Yes provided to patient/care provider Clinical Summary of Care Provided Yes Assessment/Plan Assessment/Plan (1) Pressure ulcer of sacral region, stage 4: CODE(S): L89.154 - Pressure ulcer of sacral region, stage 4 (2) Rheumatoid arthritis: CODE(S): M06.9 - Rheumatoid arthritis, unspecified (3) Debility: CODE(S): R53.81 - Other malaise PLAN: Plan Patient evaluated at the wound center today. Wound care - She has been approved for Epifix advanced wound healing product. 9th application of Epifix applied today. 100% of the 18 mm product was used. It was covered with wound veil that was secured with steri strips and then topped with Mepilex silicone border dressing. The outer dressing can be changed as needed. She was instructed not to get this area wet. She has home health who assists her with her dressing changes. Wound culture obtained 12/27/22 which was positive for Corynebacterium striatum which is considered a skin contaminant which there is no need to treat with antibiotics. Wound culture obtained 11/01/22 which was positive for Pseudomonas aeruginosa (very rare amount), Corynebacterium striatum, and Anaerobic cocci. She is allergic to the oral options to treat the Pseudomonas. I spoke with the hospital pharmacist Audra Martinez, on 11/08/22, about her wound culture and she stated that fluoroquinolones are the only option to treat pseudomonas. She completed the Diflucan for her positive operative fungal cultures. Labs drawn on 10/13/22: Total Bili 0.30, AST 17, ALT 20, Alk Phos 151. On 07/25/22 Alk Phos 152. Prealbumin 12.8 on 05/23/22. Encouraged increase protein supplementation. She state she is drinking Tommy 1-2 times per day in addition to her increase in dietary protein. Follow 1 week. Call or come in sooner if develop any questions or concerns.
== END 2023-05-10 23:59 | disposition home or self-care (01) ==
LOC: WC 10:15
PROVIDERS: PCP Family Medicine; Referring Provider Family Medicine; Visit Provider Nurse Practitioner Family
DX: L89.154 Pressure ulcer of sacral region, stage 4 (principal); M06.9 Rheumatoid arthritis, unspecified; Z79.82 Long term (current) use of aspirin; Z79.899 Other long term (current) drug therapy
CPT/HCPCS: 15271; Q4186

== ENCOUNTER 2023-05-28 10:15 | Outpatient (RCR) | payer MEDICARE, OTHER, SELFPAY ==
[2023-05-11 00:18] VITALS: BP 169/70; PULSE 70; RESP 16; TEMP 36.4
[2023-05-14 10:21] VITALS: BP 164/77; PULSE 74; RESP 16; TEMP 35.4
--- NOTE | 2023-05-14 12:10 | PCM.WC.PN ---
History of Present Illness Date of Service: 05/14/23 Chief Complaint: Left sacral ulcer History of Wound: 73 year old female with below past medical history suffered fall from second story, hospitalized for multi trauma, underwent left tibia intramedullary nail fixation, right hip anterograde intramedullary nail, complicated by encephalopathy from urinary tract infection, stage 4 left sacral pressure ulcer with chronic osteomyelitis, admitted to TCU on 04/17/22 with debility, there for rehabilitation, strengthening, prior to discharge home alone on 06/25/22 with home health/PT/OT. Surgery 05/22/22 - Excision necrotic left sacral pressure sore, Stage IV, with partial ostectomy for osteomyelitis. Wound care - Epifix placental connective tissue graft. Has had 9 applications thus far. Operative culture 05/22/22, soft tissue, positive for Eschericha coli, Streptococcus sanguinis, Corynebacterium amycolatum, Provotella oralis, Anaerobic cocci, and Fernanda albicans and Aspirgillus fumigatus. Operative culture 05/22/22, bone, positive for Provotella disiens and Fernanda albicans. She was treated with Levaquin and Augmentin. She developed muscle pain so the Levaquin was switched to Doxycycline. She was placed on Diflucan for the fungal cultures. Wound culture from 11/01/22 was positive for Pseudomonas aeruginosa (very rare). Corynebacterium striatum and Anaerobic cocci. With her multiple drug allergies, there is not an oral antibiotic to treat the Pseudomonas, but it is rare, so will start cleansing with chlorhexidine at the time of the dressing change 3 times per week and start her on Augmentin and probiotic. Wound culture from 12/27/22 positive for Corynebacterium striatum. No treatment was needed. Prealbumin from 05/23/22 was 12.8. Encourage nutritional supplementation with protein to help the healing process. Today she denies fever. Her appetite is good. Plan is to apply Epifix placental connective tissue graft #10 today. Progress of Wound: Slight improvement after Epifix #9. Objective Data Objective Data Vital Signs: Vital Signs Temp Pulse Resp BP O2 Del Method 95.8 F L 74 16 164/77 H Room Air 05/14/23 10:21 05/14/23 10:21 05/14/23 10:21 05/14/23 10:21 05/14/23 10:21 Oxygen Delivery Method Room Air Weight: 124 lb Body Mass Index (BMI) 20.0 Prealbumin from 05/23/22 was 12.8. Encourage nutritional supplementation with protein to help the healing process. Lab / Micro Data Attestation: I reviewed the patient's lab results. Charges/Coding Procedures Integumentary 150xxx-152xx: 47047 Skin sub graft trnk/arm/leg (ICD-10 - L89.154, M86.9, M06.9, R53.81) Debridement Note Debridement Note Wound debrided: #1 Left sacral area. Laterality: Left Wound Grade/Stage: IV. Type of Debridement: Excisional debridement Anesthesia Used: 4% Lidocaine Solution Depth: Down to and including healthy tissue, in the subcutaneous layer, to muscle and to bone (bone is palpable but not exposed.) Percentage of wound debrided: 100 Instrument Used: 3mm curette Tissue Removed: subcutaneous tissue and muscle. Severity: Fat Layer Exposed (muscle is exposed. bone is palpable but not exposed and not debrided.) Amount of bleeding with debridement: Mild Bleeding Controlled with: Pressure and Compression and gauze Patient tolerated procedure: Patient tolerated procedure well Debridement Free Text: Epifix placental connective tissue graft #10 applied. Lot Number - [id number]. Percent tissue used - 100. Saline Lot Number - [id number]. Expiration - January 10, 2028. Post-Debridement Measurements and Additional Note: Post-Debridement Measurements/Treatment - Nurse 1 - General Ulcer Assessment Start: 05/14/23 10:20 Freq: Status: Active Protocol: JUSTIN Activity Type Activity Date Activity User E-sign Co-sign Detail Recorded Client Recorded Date Recorded By Document 05/14/23 10:21 [facility] Desktop 05/14/23 10:26 [facility] 05/14/23 10:21 - Today's Visit Information Type of service Follow-up Visit (Physician/[employer] ) Arrival Mode Ambulatory, Walker Transfer Assistance None Patient Identification Verified (Name & Yes ) Patient Requires Transmission-Based No Precautions Height and Weight Body Mass Index (BMI) 20.0 BMI Classification Normal Vital Signs Temperature (97.8 F-99.1 F) 95.8 F L Temperature Source Temporal Pulse Rate (60-100) 74 Pulse Location Monitor Respiratory Rate (12-18) 16 Respiratory rate source Observation Oxygen Delivery Method Room Air Blood Pressure (90/60-120/80) 164/77 H Blood Pressure Mean (mm Hg) 106 Source Monitor Position Sitting Blood Pressure Location Left Arm History Since Last Visit- (Skip if this is Patient's initial visit) Have you changed medications since your No last visit? Any new allergies or adverse reactions No Had a fall/change in ADL's that may No increase risk of falls Signs or symptoms of abuse and/or No neglect since last visit Have you been in the hospital since your No last visit? Has dressing in place as prescribed Yes Has compression in place as prescribed N/A Has offloadiing in place as prescribed N/A Experienced any changes in pain level or No management Left Footwear Regular Shoe Right Footwear Regular Shoe Pain Scale: 0-10 Numeric Is Patient Pain Free? Yes WC - Nurse 1 - General Ulcer Measurement Start: 05/14/23 10:20 Freq: Status: Active Protocol: Activity Type Activity Date Activity User E-sign Co-sign Detail Recorded Client Recorded Date Recorded By Document 05/14/23 10:21 [facility] Desktop 05/14/23 10:26 [facility] 05/14/23 10:21 Wound Center Nurse 1 1. sacral -Combined with other wound No -Current Size (cm) - Length 1.6 -Current Size (cm) - Width 0.3 -Current Size (cm) - Depth 0.2 -Total Square Cm 0.48 -Photo Taken No -Epithelialization Small 1-33% -Tunneling No -Undermining/Tunneling No -Circular Undermining No -Exudate Amt Medium -Exudate Type Serosanguineous -Wound Margin Distinct, Outline Attached -Granulation Amt Large (67-100%) -Granulation Quality Red -Slough/Fibrin No -Necrosis Amt None Present (0 %) -Texture (Mahnaz-wound Skin Appearance) Assessed,Callus ,Scarring -Moisture (Mahnaz-wound Skin Appearance) Assessed, Maceration -Color (Mahnaz-wound Skin Appearance) Assessed -Temperature (Mahnaz-wound Skin No Abnormality Appearance) (Pt Warm) -Tenderness on Palpation (Mahnaz-wound No Skin Appearance) -Ulcer Cleansing Rinsed/ Irrigated with Saline -Foul Odor after Cleansing No -Anesthetic Used 5% Lidocaine Gel WC - Nurse 2 - General Ulcer CM Notes Start: 05/14/23 10:20 Freq: Status: Active Protocol: Activity Type Activity Date Activity User E-sign Co-sign Detail Recorded Client Recorded Date Recorded By Document 05/14/23 11:03 Laptop 05/14/23 11:05 05/14/23 11:03 Wound Center Nurse 2 -Time 11:03 -Correct Patient Yes -Correct Side, Site, Position Yes -Correct Procedure Yes -Procedure Performed Yes -Type of Procedure Debridement -Clinical Debridement Muscle / Fascia -Tissue Removed Muscle,Fascia -Post Debridement (cm) - Length 1.6 -Post Debridement (cm) - Width 0.3 -Post Debridement (cm) - Depth 0.2 -Total Square (Post) (cm) 0.48 -Area of Debridement (cm) - Length 1.6 -Area of Debridement (cm) - Width 0.3 -Total Square (Area) (cm) 0.48 -Tunneling No -Undermining/Tunneling No -Circular Undermining No -Wound/Ulcer Outcome Not Healed -Ulcer Cleansing Rinsed/ Irrigated with Saline -Foul Odor after Cleansing No -Bioengineered Tissue Yes -Type of Bioengineered Tissue Epifix 18mm Disc -Expiration Date 01/10/28 -Product Lot Number [id number] -Percent Used 100 -Lot number of Saline Used [id number] -Bleeding Controlled with Pressure -Treatment Response Procedure Tolerated Well -Offloading No -Debridement - Muscle / Fascia, 1st No 20sq cm -Apply Skin Sub - 1st 25 sq cm - Legs 1 -Epifix 18mm Disc 3 Pain Scale: 0-10 Numeric Is Patient Pain Free? Yes - Nurse 3 - General Ulcer D/C NN Start: 05/14/23 10:20 Freq: Status: Active Protocol: Activity Type Activity Date Activity User E-sign Co-sign Detail Recorded Client Recorded Date Recorded By Document 05/14/23 11:05 Laptop 05/14/23 11:06 05/14/23 11:05 Wound Care Center Nurse 3 1. sacral -Ulcer Cleansing Rinsed/ Irrigated with Saline -Primary Dressing Applied Mepilex Border -Primary Dressing Covered/Secured with Dry Gauze -Mepilex Border 1 Pain Scale: 0-10 Numeric Is Patient Pain Free? Yes - Visit Discharge Discharge Condition Stable Ambulatory Status Ambulatory, Walker Transportation Private Auto Medication Reconcilliation completed & Yes provided to patient/care provider Clinical Summary of Care Provided Yes Assessment/Plan Assessment/Plan (1) Pressure ulcer of sacral region, stage 4: CODE(S): L89.154 - Pressure ulcer of sacral region, stage 4 (2) Osteomyelitis of left side of pelvis: CODE(S): M86.9 - Osteomyelitis, unspecified (3) Rheumatoid arthritis: CODE(S): M06.9 - Rheumatoid arthritis, unspecified (4) Debility: CODE(S): R53.81 - Other malaise PLAN: Plan Wound care - She has been approved for an advanced skin substitute graft. We are using Epifix placental connective tissue graft. Today will be application #10. 100% of the 18 mm product was used. It was covered with wound veil that was secured with steri strips and then topped with Mepilex silicone border dressing. The outer dressing can be changed as needed. She was instructed not to get this area wet. She has home health who assists her with her dressing changes. Wound culture obtained 12/27/22 was positive for Corynebacterium striatum. No treatment was needed. Wound culture obtained 11/01/22 was positive for Pseudomonas aeruginosa (very rare amount), Corynebacterium striatum, and Anaerobic cocci. She is allergic to the oral options to treat the Pseudomonas. I spoke with the hospital pharmacist Audra Martinez, on 11/08/22, about her wound culture and she stated that fluoroquinolones are the only option to treat pseudomonas. She completed the Diflucan for her positive operative fungal cultures. Labs drawn on 10/13/22: Total Bili 0.30, AST 17, ALT 20, Alk Phos 151. On 07/25/22 Alk Phos 152. Prealbumin 12.8 on 05/23/22. Encouraged increase protein supplementation. She state she is drinking Tommy 1-2 times per day in addition to her increase in dietary protein. Only 10 applications of Epifix are allowed in a 12 week period. After today will use how well the ulcer heals. There is a lot of chronic scarring on the edges as well as the base of the ulcer. This chronic bursal scar tissue can be a hindrance to healing. A maintenance operative debridement may be necessary to help jump start the healing process. Patient will think about the surgery and let us know. She wants to see how well the ulcer continues to improve with the Epifix placental connective tissue graft. Followup 2 weeks.
[2023-05-21 10:17] VITALS: BP 142/74; PULSE 65; RESP 16; TEMP 36.1
--- NOTE | 2023-05-21 12:14 | PCM.WC.PN ---
History of Present Illness Date of Service: 05/21/23 Chief Complaint: Left sacral ulcer History of Wound: 73 year old female with below past medical history suffered fall from second story, hospitalized for multi trauma, underwent left tibia intramedullary nail fixation, right hip anterograde intramedullary nail, complicated by encephalopathy from urinary tract infection, stage 4 left sacral pressure ulcer with chronic osteomyelitis, admitted to TCU on 04/17/22 with debility, there for rehabilitation, strengthening, prior to discharge home alone on 06/25/22 with home health/PT/OT. Surgery 05/22/22 - Excision necrotic left sacral pressure sore, Stage IV, with partial ostectomy for osteomyelitis. Wound care - Epifix placental connective tissue graft. Has had 9 applications thus far. Operative culture 05/22/22, soft tissue, positive for Eschericha coli, Streptococcus sanguinis, Corynebacterium amycolatum, Provotella oralis, Anaerobic cocci, and Fernanda albicans and Aspirgillus fumigatus. Operative culture 05/22/22, bone, positive for Provotella disiens and Fernanda albicans. She was treated with Levaquin and Augmentin. She developed muscle pain so the Levaquin was switched to Doxycycline. She was placed on Diflucan for the fungal cultures. Wound culture from 11/01/22 was positive for Pseudomonas aeruginosa (very rare). Corynebacterium striatum and Anaerobic cocci. With her multiple drug allergies, there is not an oral antibiotic to treat the Pseudomonas, but it is rare, so will start cleansing with chlorhexidine at the time of the dressing change 3 times per week and start her on Augmentin and probiotic. Wound culture from 12/27/22 positive for Corynebacterium striatum. No treatment was needed. Prealbumin from 05/23/22 was 12.8. Encourage nutritional supplementation with protein to help the healing process. Today she denies fever. Her appetite is good. She has had 10 applications of Epifix. Progress of Wound: Her ulcer is smaller. There is thickened scarring surrounding the ulcer. Objective Data Objective Data Vital Signs: Vital Signs Temp Pulse Resp BP O2 Del Method 96.9 F L 65 16 142/74 H Room Air 05/21/23 10:17 05/21/23 10:17 05/21/23 10:17 05/21/23 10:17 05/21/23 10:17 Oxygen Delivery Method Room Air Weight: 124 lb Body Mass Index (BMI) 20.0 Charges/Coding Procedures Integumentary 111xxx-113xx: 90333 Dana musc/fascia 20 sq cm/< Debridement Note Debridement Note Wound debrided: #1 Left sacral area. Laterality: Left Wound Grade/Stage: IV Type of Debridement: Excisional debridement Anesthesia Used: 4% Lidocaine Solution Depth: Down to and including healthy tissue, in the subcutaneous layer, to muscle and to bone (bone is palpable but not exposed.) Percentage of wound debrided: 100 Instrument Used: 3mm curette Tissue Removed: subcutaneous tissue and muscle. Severity: Fat Layer Exposed (muscle is exposed. bone is palpable but not exposed and not debrided.) Amount of bleeding with debridement: Mild Bleeding Controlled with: Pressure and Compression and gauze Patient tolerated procedure: Patient tolerated procedure well Post-Debridement Measurements and Additional Note: Post-Debridement Measurements/Treatment - Nurse 1 - General Ulcer Assessment Start: 05/14/23 10:20 Freq: Status: Active Protocol: JUSTIN Activity Type Activity Date Activity User E-sign Co-sign Detail Recorded Client Recorded Date Recorded By Document 05/14/23 10:21 [employer] Desktop 05/14/23 10:26 [employer] Document 05/21/23 10:17 [employer] Desktop 05/21/23 10:29 [employer] 05/14/23 05/21/23 10:21 10:17 - Today's Visit Information Type of service Follow-up Visit Follow-up Visit (Physician/[employer] (Physician/[employer] ) ) Arrival Mode Ambulatory, Ambulatory, Walker Walker Transfer Assistance None None Patient Identification Verified (Name & Yes Yes ) Patient Requires Transmission-Based No No Precautions Height and Weight Body Mass Index (BMI) 20.0 20.0 BMI Classification Normal Normal Vital Signs Temperature (97.8 F-99.1 F) 95.8 F L 96.9 F L Temperature Source Temporal Temporal Pulse Rate (60-100) 74 65 Pulse Location Monitor Monitor Respiratory Rate (12-18) 16 16 Respiratory rate source Observation Observation Oxygen Delivery Method Room Air Room Air Blood Pressure (90/60-120/80) 164/77 H 142/74 H Blood Pressure Mean (mm Hg) 106 96 Source Monitor Monitor Position Sitting Sitting Blood Pressure Location Left Arm Left Arm History Since Last Visit- (Skip if this is Patient's initial visit) Have you changed medications since your No No last visit? Any new allergies or adverse reactions No No Had a fall/change in ADL's that may No No increase risk of falls Signs or symptoms of abuse and/or No No neglect since last visit Have you been in the hospital since your No No last visit? Has dressing in place as prescribed Yes Yes Has compression in place as prescribed N/A N/A Has offloadiing in place as prescribed N/A N/A Experienced any changes in pain level or No No management Left Footwear Regular Shoe Regular Shoe Right Footwear Regular Shoe Regular Shoe Pain Scale: 0-10 Numeric Is Patient Pain Free? Yes Yes WC - Nurse 1 - General Ulcer Measurement Start: 05/14/23 10:20 Freq: Status: Active Protocol: Activity Type Activity Date Activity User E-sign Co-sign Detail Recorded Client Recorded Date Recorded By Document 05/14/23 10:21 [employer] Desktop 05/14/23 10:26 [employer] Document 05/21/23 10:17 [employer] Desktop 05/21/23 10:29 F 05/14/23 05/21/23 10:21 10:17 Wound Center Nurse 1 1. sacral -Combined with other wound No No -Current Size (cm) - Length 1.6 0.6 -Current Size (cm) - Width 0.3 0.2 -Current Size (cm) - Depth 0.2 0.5 -Total Square Cm 0.48 0.12 -Date of Last Picture (Recall this 05/21/23 field) -Photo Taken No Yes -Epithelialization Small 1-33% Small 1-33% -Tunneling No No -Undermining/Tunneling No No -Circular Undermining No No -Exudate Amt Medium Medium -Exudate Type Serosanguineous Serosanguineous -Wound Margin Distinct, Thickened & Outline Rolled Under Attached -Granulation Amt Large (67-100%) Large (67-100%) -Granulation Quality Red Red -Slough/Fibrin No Yes -Necrosis Amt None Present (0 Small (1-33%) %) -Necrotic Tissue Type Adherent Slough -Texture (Mahnaz-wound Skin Appearance) Assessed,Callus Assessed, ,Scarring Scarring -Moisture (Mahnaz-wound Skin Appearance) Assessed, Assessed Maceration -Color (Mahnaz-wound Skin Appearance) Assessed Assessed -Temperature (Mahnaz-wound Skin No Abnormality No Abnormality Appearance) (Pt Warm) (Pt Warm) -Tenderness on Palpation (Mahnaz-wound No No Skin Appearance) -Ulcer Cleansing Rinsed/ Rinsed/ Irrigated with Irrigated with Saline Saline -Foul Odor after Cleansing No No -Anesthetic Used 5% Lidocaine 5% Lidocaine Gel Gel WC - Nurse 2 - General Ulcer CM Notes Start: 05/14/23 10:20 Freq: Status: Active Protocol: Activity Type Activity Date Activity User E-sign Co-sign Detail Recorded Client Recorded Date Recorded By Document 05/14/23 11:03 Laptop 05/14/23 11:05 Document 05/21/23 10:44 Laptop 05/21/23 10:47 05/14/23 05/21/23 11:03 10:44 Wound Center Nurse 2 1. sacral -Time 11:03 10:45 -Correct Patient Yes Yes -Correct Side, Site, Position Yes Yes -Correct Procedure Yes Yes -Procedure Performed Yes Yes -Type of Procedure Debridement Debridement -Clinical Debridement Muscle / Fascia Muscle / Fascia -Tissue Removed Muscle,Fascia Muscle -Post Debridement (cm) - Length 1.6 1.4 -Post Debridement (cm) - Width 0.3 0.3 -Post Debridement (cm) - Depth 0.2 0.2 -Total Square (Post) (cm) 0.48 0.42 -Area of Debridement (cm) - Length 1.6 1.4 -Area of Debridement (cm) - Width 0.3 0.3 -Total Square (Area) (cm) 0.48 0.42 -Tunneling No No -Undermining/Tunneling No No -Circular Undermining No No -Wound/Ulcer Outcome Not Healed Not Healed -Ulcer Cleansing Rinsed/ Wound Cleanser Irrigated with Saline -Foul Odor after Cleansing No No -Bioengineered Tissue Yes No -Type of Bioengineered Tissue Epifix 18mm Disc -Expiration Date 01/10/28 -Product Lot Number [id number] -Percent Used 100 -Lot number of Saline Used [id number] -Bleeding Controlled with Pressure Pressure -Treatment Response Procedure Procedure Tolerated Well Tolerated Well -Offloading No No -Debridement - Muscle / Fascia, 1st No Yes 20sq cm -Apply Skin Sub - 1st 25 sq cm - Legs 1 -Epifix 18mm Disc 3 Pain Scale: 0-10 Numeric Is Patient Pain Free? Yes Yes - Nurse 3 - General Ulcer D/C NN Start: 05/14/23 10:20 Freq: Status: Active Protocol: Activity Type Activity Date Activity User E-sign Co-sign Detail Recorded Client Recorded Date Recorded By Document 05/14/23 11:05 Laptop 05/14/23 11:06 Document 05/21/23 10:57 DL Desktop 05/21/23 10:58 DL 05/14/23 05/21/23 11:05 10:57 Wound Care Center Nurse 3 1. sacral -Ulcer Cleansing Rinsed/ Rinsed/ Irrigated with Irrigated with Saline Saline -Foul Odor after Cleansing No -Primary Dressing Applied Mepilex Border Fibracol Plus 4x4,Mepilex Border -Primary Dressing Covered/Secured with Dry Gauze -Fibracol Plus 4x4 1 -Mepilex Border 1 1 Treatment Response Procedure Tolerated Well Pain Scale: 0-10 Numeric Is Patient Pain Free? Yes Yes - Visit Discharge Discharge Condition Stable Stable Ambulatory Status Ambulatory, Ambulatory, Walker Walker Transportation Private Auto family Medication Reconcilliation completed & Yes provided to patient/care provider Clinical Summary of Care Provided Yes Facility Type Home Health Orders Sent Yes Assessment/Plan Assessment/Plan (1) Pressure ulcer of sacral region, stage 4: CODE(S): L89.154 - Pressure ulcer of sacral region, stage 4 (2) Osteomyelitis of left side of pelvis: CODE(S): M86.9 - Osteomyelitis, unspecified (3) Rheumatoid arthritis: CODE(S): M06.9 - Rheumatoid arthritis, unspecified (4) Debility: CODE(S): R53.81 - Other malaise PLAN: Plan Wound care - She has been approved for an advanced skin substitute graft. She has had 10 applications of Epifix. Today will start moistened Fibrocol+ topped with [place] SAP/Foam border dressing 3 times a week. Wound culture obtained 12/27/22 was positive for Corynebacterium striatum. No treatment was needed. Wound culture obtained 11/01/22 was positive for Pseudomonas aeruginosa (very rare amount), Corynebacterium striatum, and Anaerobic cocci. She is allergic to the oral options to treat the Pseudomonas. I spoke with the hospital pharmacist Audra Martinez, on 11/08/22, about her wound culture and she stated that fluoroquinolones are the only option to treat pseudomonas. She completed the Diflucan for her positive operative fungal cultures. Labs drawn on 10/13/22: Total Bili 0.30, AST 17, ALT 20, Alk Phos 151. On 07/25/22 Alk Phos 152. Prealbumin 12.8 on 05/23/22. Encouraged increase protein supplementation. She state she is drinking Tommy 1-2 times per day in addition to her increase in dietary protein. There is a lot of chronic scarring on the edges as well as the base of the ulcer. This chronic bursal scar tissue can be a hindrance to healing. A maintenance operative debridement may be necessary to help jump start the healing process. Patient will think about the surgery and let us know, but she would really like to avoid surgery if possible. Followup 1 week.
[2023-05-28 10:11] VITALS: BP 146/70; PULSE 72; RESP 18; TEMP 36.6
--- NOTE | 2023-05-28 11:52 | PCM.WC.PN ---
History of Present Illness Date of Service: 05/28/23 Chief Complaint: Left sacral ulcer History of Wound: 73 year old female with below past medical history suffered fall from second story, hospitalized for multi trauma, underwent left tibia intramedullary nail fixation, right hip anterograde intramedullary nail, complicated by encephalopathy from urinary tract infection, stage 4 left sacral pressure ulcer with chronic osteomyelitis, admitted to TCU on 04/17/22 with debility, there for rehabilitation, strengthening, prior to discharge home alone on 06/25/22 with home health/PT/OT. Surgery 05/22/22 - Excision necrotic left sacral pressure sore, Stage IV, with partial ostectomy for osteomyelitis. Wound care - Epifix placental connective tissue graft. Has had 9 applications thus far. Operative culture 05/22/22, soft tissue, positive for Eschericha coli, Streptococcus sanguinis, Corynebacterium amycolatum, Provotella oralis, Anaerobic cocci, and Fernanda albicans and Aspirgillus fumigatus. Operative culture 05/22/22, bone, positive for Provotella disiens and Fernanda albicans. She was treated with Levaquin and Augmentin. She developed muscle pain so the Levaquin was switched to Doxycycline. She was placed on Diflucan for the fungal cultures. Wound culture from 11/01/22 was positive for Pseudomonas aeruginosa (very rare). Corynebacterium striatum and Anaerobic cocci. With her multiple drug allergies, there is not an oral antibiotic to treat the Pseudomonas, but it is rare, so will start cleansing with chlorhexidine at the time of the dressing change 3 times per week and start her on Augmentin and probiotic. Wound culture from 12/27/22 positive for Corynebacterium striatum. No treatment was needed. Prealbumin from 05/23/22 was 12.8. Encourage nutritional supplementation with protein to help the healing process. Today she denies fever. Her appetite is good. She has had 10 applications of Epifix. Progress of Wound: The ulcer is larger this week. The wound bed is a nice beefy pink. Objective Data Objective Data Vital Signs: Vital Signs Temp Pulse Resp BP O2 Del Method 97.8 F 72 18 146/70 H Room Air 05/28/23 10:11 05/28/23 10:11 05/28/23 10:11 05/28/23 10:11 05/28/23 10:11 Oxygen Delivery Method Room Air Weight: 124 lb Body Mass Index (BMI) 20.0 Charges/Coding Procedures Integumentary 111xxx-113xx: 82871 Dana subq tissue 20 sq cm/< Debridement Note Debridement Note Wound debrided: #1 Left sacral area. Laterality: Left Wound Grade/Stage: IV Type of Debridement: Excisional debridement Anesthesia Used: 4% Lidocaine Solution Depth: Down to and including healthy tissue, in the subcutaneous layer, to muscle and to bone (bone is palpable but not exposed.) Percentage of wound debrided: 100 Instrument Used: 5mm curette Tissue Removed: subcutaneous tissue and muscle. Severity: Fat Layer Exposed (muscle is exposed. bone is palpable but not exposed and not debrided.) Amount of bleeding with debridement: Mild Bleeding Controlled with: Compression and gauze Patient tolerated procedure: Patient tolerated procedure well Post-Debridement Measurements and Additional Note: Post-Debridement Measurements/Treatment - Nurse 1 - General Ulcer Assessment Start: 05/14/23 10:20 Freq: Status: Active Protocol: BRADENTuteeSAVANNAH Activity Type Activity Date Activity User E-sign Co-sign Detail Recorded Client Recorded Date Recorded By Document 05/14/23 10:21 [email or web address] Desktop 05/14/23 10:26 [email or web address] Document 05/21/23 10:17 [email or web address] Desktop 05/21/23 10:29 [email or web address] Document 05/28/23 10:11 KW Desktop 05/28/23 10:18 KW 05/14/23 05/21/23 05/28/23 10:21 10:17 10:11 - Today's Visit Information Type of service Follow-up Visit Follow-up Visit Follow-up Visit (Physician/INSTRUMENT REPAIR TECHNICIAN (Physician/INSTRUMENT REPAIR TECHNICIAN (Physician/INSTRUMENT REPAIR TECHNICIAN ) ) ) Arrival Mode Ambulatory, Ambulatory, Ambulatory, Walker Walker Walker Transfer Assistance None None Patient Identification Verified (Name & Yes Yes Yes ) Patient Requires Transmission-Based No No Precautions Height and Weight Body Mass Index (BMI) 20.0 20.0 20.0 BMI Classification Normal Normal Normal Vital Signs Temperature (97.8 F-99.1 F) 95.8 F L 96.9 F L 97.8 F Temperature Source Temporal Temporal Temporal Pulse Rate (60-100) 74 65 72 Pulse Location Monitor Monitor Monitor Respiratory Rate (12-18) 16 16 18 Respiratory rate source Observation Observation Observation Oxygen Delivery Method Room Air Room Air Room Air Blood Pressure (90/60-120/80) 164/77 H 142/74 H 146/70 H Blood Pressure Mean (mm Hg) 106 96 95 Source Monitor Monitor Monitor Position Sitting Sitting Sitting Blood Pressure Location Left Arm Left Arm Left Arm History Since Last Visit- (Skip if this is Patient's initial visit) Have you changed medications since your No No No last visit? Any new allergies or adverse reactions No No No Had a fall/change in ADL's that may No No No increase risk of falls Signs or symptoms of abuse and/or No No No neglect since last visit Have you been in the hospital since your No No No last visit? Has dressing in place as prescribed Yes Yes Yes Has compression in place as prescribed N/A N/A N/A Has offloadiing in place as prescribed N/A N/A N/A Experienced any changes in pain level or No No No management Left Footwear Regular Shoe Regular Shoe Regular Shoe Right Footwear Regular Shoe Regular Shoe Regular Shoe Pain Scale: 0-10 Numeric Is Patient Pain Free? Yes Yes Yes WC - Nurse 1 - General Ulcer Measurement Start: 05/14/23 10:20 Freq: Status: Active Protocol: Activity Type Activity Date Activity User E-sign Co-sign Detail Recorded Client Recorded Date Recorded By Document 05/14/23 10:21 [email or web address] Desktop 05/14/23 10:26 hike Document 05/21/23 10:17 [email or web address] Desktop 05/21/23 10:29 [email or web address] Document 05/28/23 10:11 KW Desktop 05/28/23 10:18 KW 05/14/23 05/21/23 05/28/23 10:21 10:17 10:11 Wound Center Nurse 1 1. sacral -Combined with other wound No No -Current Size (cm) - Length 1.6 0.6 1.0 -Current Size (cm) - Width 0.3 0.2 0.2 -Current Size (cm) - Depth 0.2 0.5 0.4 -Total Square Cm 0.48 0.12 0.20 -Date of Last Picture (Recall this 05/21/23 field) -Photo Taken No Yes -Epithelialization Small 1-33% Small 1-33% -Tunneling No No -Undermining/Tunneling No No -Circular Undermining No No -Exudate Amt Medium Medium Small -Exudate Type Serosanguineous Serosanguineous Serosanguineous -Wound Margin Distinct, Thickened & Distinct, Outline Rolled Under Outline Attached Attached -Granulation Amt Large (67-100%) Large (67-100%) Large (67-100%) -Granulation Quality Red Red [place] -Slough/Fibrin No Yes -Necrosis Amt None Present (0 Small (1-33%) %) -Necrotic Tissue Type Adherent Slough -Texture (Mahnaz-wound Skin Appearance) Assessed,Callus Assessed, Assessed ,Scarring Scarring -Moisture (Mahnaz-wound Skin Appearance) Assessed, Assessed Assessed Maceration -Color (Mahnaz-wound Skin Appearance) Assessed Assessed Assessed -Temperature (Mahnaz-wound Skin No Abnormality No Abnormality No Abnormality Appearance) (Pt Warm) (Pt Warm) (Pt Warm) -Tenderness on Palpation (Mahnaz-wound No No Skin Appearance) -Ulcer Cleansing Rinsed/ Rinsed/ Rinsed/ Irrigated with Irrigated with Irrigated with Saline Saline Saline -Foul Odor after Cleansing No No No -Anesthetic Used 5% Lidocaine 5% Lidocaine 5% Lidocaine Gel Gel Gel WC - Nurse 2 - General Ulcer CM Notes Start: 05/14/23 10:20 Freq: Status: Active Protocol: Activity Type Activity Date Activity User E-sign Co-sign Detail Recorded Client Recorded Date Recorded By Document 05/14/23 11:03 Laptop 05/14/23 11:05 Document 05/21/23 10:44 Laptop 05/21/23 10:47 Document 05/28/23 10:51 Laptop 05/28/23 10:56 05/14/23 05/21/23 05/28/23 11:03 10:44 10:51 Wound Center Nurse 2 1. sacral -Time 11:03 10:45 10:55 -Correct Patient Yes Yes Yes -Correct Side, Site, Position Yes Yes Yes -Correct Procedure Yes Yes Yes -Procedure Performed Yes Yes Yes -Type of Procedure Debridement Debridement Debridement -Clinical Debridement Muscle / Fascia Muscle / Fascia Muscle / Fascia -Tissue Removed Muscle,Fascia Muscle Muscle,Fascia -Post Debridement (cm) - Length 1.6 1.4 1.6 -Post Debridement (cm) - Width 0.3 0.3 0.5 -Post Debridement (cm) - Depth 0.2 0.2 0.3 -Total Square (Post) (cm) 0.48 0.42 0.80 -Area of Debridement (cm) - Length 1.6 1.4 1.6 -Area of Debridement (cm) - Width 0.3 0.3 0.5 -Total Square (Area) (cm) 0.48 0.42 0.80 -Tunneling No No No -Undermining/Tunneling No No No -Circular Undermining No No No -Wound/Ulcer Outcome Not Healed Not Healed Not Healed -Ulcer Cleansing Rinsed/ Wound Cleanser Rinsed/ Irrigated with Irrigated with Saline Saline -Foul Odor after Cleansing No No Yes, Due to Product Use -Bioengineered Tissue Yes No No -Type of Bioengineered Tissue Epifix 18mm Disc -Expiration Date 01/10/28 -Product Lot Number [id number] -Percent Used 100 -Lot number of Saline Used [id number] -Bleeding Controlled with Pressure Pressure Pressure -Treatment Response Procedure Procedure Procedure Tolerated Well Tolerated Well Tolerated Well -Offloading No No No -Debridement - Subq, 1st 20sq cm No -Debridement - Muscle / Fascia, 1st No Yes Yes 20sq cm -Apply Skin Sub - 1st 25 sq cm - Legs 1 -Epifix 18mm Disc 3 Pain Scale: 0-10 Numeric Is Patient Pain Free? Yes Yes Yes - Nurse 3 - General Ulcer D/C NN Start: 05/14/23 10:20 Freq: Status: Active Protocol: Activity Type Activity Date Activity User E-sign Co-sign Detail Recorded Client Recorded Date Recorded By Document 05/14/23 11:05 Laptop 05/14/23 11:06 Document 05/21/23 10:57 Desktop 05/21/23 10:58 Document 05/28/23 10:56 Laptop 05/28/23 10:56 05/14/23 05/21/23 05/28/23 11:05 10:57 10:56 Wound Care Center Nurse 3 1. sacral -Ulcer Cleansing Rinsed/ Rinsed/ Rinsed/ Irrigated with Irrigated with Irrigated with Saline Saline Saline -Foul Odor after Cleansing No No -Primary Dressing Applied Mepilex Border Fibracol Plus Aquacel AG 2x2, 4x4,Mepilex Mepilex Border Border -Primary Dressing Covered/Secured with Dry Gauze Dry Gauze -Aquacel AG 2x2 1 -Fibracol Plus 4x4 1 -Mepilex Border 1 1 1 Treatment Response Procedure Tolerated Well Pain Scale: 0-10 Numeric Is Patient Pain Free? Yes Yes Yes WC - Visit Discharge Discharge Condition Stable Stable Stable Ambulatory Status Ambulatory, Ambulatory, Ambulatory, Walker Walker Walker Transportation Private Auto family Private Auto Medication Reconcilliation completed & Yes Yes provided to patient/care provider Clinical Summary of Care Provided Yes Facility Type Home Health Orders Sent Yes Assessment/Plan Assessment/Plan (1) Pressure ulcer of sacral region, stage 4: CODE(S): L89.154 - Pressure ulcer of sacral region, stage 4 (2) Osteomyelitis of left side of pelvis: CODE(S): M86.9 - Osteomyelitis, unspecified (3) Rheumatoid arthritis: CODE(S): M06.9 - Rheumatoid arthritis, unspecified (4) Debility: CODE(S): R53.81 - Other malaise PLAN: Plan Wound care - She has had 10 applications of Epifix. Will switch her to moistened Aquacel-Ag topped with [place] SAP/Foam border dressing 3 times a week. It would be beneficial to have the dressing changed daily, but the patient states that she is not able to do that herself and she does not have someone at home to help her with daily dressing changes. Wound culture obtained 12/27/22 was positive for Corynebacterium striatum. No treatment was needed. Wound culture obtained 11/01/22 was positive for Pseudomonas aeruginosa (very rare amount), Corynebacterium striatum, and Anaerobic cocci. She is allergic to the oral options to treat the Pseudomonas. I spoke with the hospital pharmacist Audra Martinez, on 11/08/22, about her wound culture and she stated that fluoroquinolones are the only option to treat pseudomonas. She completed the Diflucan for her positive operative fungal cultures. Labs drawn on 10/13/22: Total Bili 0.30, AST 17, ALT 20, Alk Phos 151. On 07/25/22 Alk Phos 152. Prealbumin 12.8 on 05/23/22. Encouraged increase protein supplementation. She state she is drinking Tommy 1-2 times per day in addition to her increase in dietary protein. There is a lot of chronic scarring on the edges as well as the base of the ulcer. This chronic bursal scar tissue can be a hindrance to healing. A maintenance operative debridement may be necessary to help jump start the healing process. Patient will think about the surgery and let us know, but she would really like to avoid surgery if possible. Followup 3 weeks, due to the holidays.
== END 2023-06-10 23:59 | disposition home or self-care (01) ==
LOC: WC 10:15
PROVIDERS: PCP Family Medicine; Referring Provider Family Medicine; Visit Provider Nurse Practitioner Family
DX: L89.154 Pressure ulcer of sacral region, stage 4 (principal); M06.9 Rheumatoid arthritis, unspecified; M86.8X8 Other osteomyelitis, other site; Z79.82 Long term (current) use of aspirin; Z79.899 Other long term (current) drug therapy; R53.81 Other malaise
CPT/HCPCS: 11043; 15271; Q4186

== ENCOUNTER 2023-07-09 10:15 | Outpatient (RCR) | payer MEDICARE, OTHER, SELFPAY ==
[2023-06-11 00:36] VITALS: BP 146/70; PULSE 72; RESP 18; TEMP 36.6
[2023-06-18 10:15] VITALS: BP 149/77; PULSE 65; RESP 16; TEMP 36.6
--- NOTE | 2023-06-18 12:00 | PN.PCM_ITS ---
History of Present Illness Date of Service: 06/18/23 Chief Complaint: Left sacral ulcer History of Wound: 73 year old female with below past medical history suffered fall from second story, hospitalized for multi trauma, underwent left tibia intramedullary nail fixation, right hip anterograde intramedullary nail, complicated by encephalopathy from urinary tract infection, stage 4 left sacral pressure ulcer with chronic osteomyelitis, admitted to TCU on 04/17/22 with debility, there for rehabilitation, strengthening, prior to discharge home alone on 06/25/22 with home health/PT/OT. Surgery 05/22/22 - Excision necrotic left sacral pressure sore, Stage IV, with partial ostectomy for osteomyelitis. Wound care - Epifix placental connective tissue graft. Has had 9 applications thus far. Operative culture 05/22/22, soft tissue, positive for Eschericha coli, Streptococcus sanguinis, Corynebacterium amycolatum, Provotella oralis, Anaerobic cocci, and Fernanda albicans and Aspirgillus fumigatus. Operative culture 05/22/22, bone, positive for Provotella disiens and Fernanda albicans. She was treated with Levaquin and Augmentin. She developed muscle pain so the Levaquin was switched to Doxycycline. She was placed on Diflucan for the fungal cultures. Wound culture from 11/01/22 was positive for Pseudomonas aeruginosa (very rare). Corynebacterium striatum and Anaerobic cocci. With her multiple drug allergies, there is not an oral antibiotic to treat the Pseudomonas, but it is rare, so will start cleansing with chlorhexidine at the time of the dressing change 3 times per week and start her on Augmentin and probiotic. Wound culture from 12/27/22 positive for Corynebacterium striatum. No treatment was needed. Prealbumin from 05/23/22 was 12.8. Encourage nutritional supplementation with protein to help the healing process. Today she denies fever. Her appetite is good. She has had 10 applications of Epifix. Progress of Wound: The ulcer is smaller since she was last seen. The wound bed is pink. There is some thickened scar tissue surrounding the ulcer. Objective Data Objective Data Vital Signs: Vital Signs Temp Pulse Resp BP O2 Del Method 97.8 F 65 16 149/77 H Room Air 06/18/23 10:15 06/18/23 10:15 06/18/23 10:15 06/18/23 10:15 06/18/23 10:15 Oxygen Delivery Method Room Air Weight: 124 lb Body Mass Index (BMI) 20.0 Charges/Coding Procedures Integumentary 111xxx-113xx: 31196 Dana musc/fascia 20 sq cm/< Debridement Note Debridement Note Wound debrided: #1 Left sacral area. Laterality: Left Wound Grade/Stage: IV Type of Debridement: Excisional debridement Anesthesia Used: 4% Lidocaine Solution Depth: Down to and including healthy tissue, in the subcutaneous layer and to muscle Percentage of wound debrided: 100 Instrument Used: 3mm curette Tissue Removed: subcutaneous tissue and slough, into the muscle. Severity: Fat Layer Exposed (muscle is exposed. bone is palpable but not exposed and not debrided.) Amount of bleeding with debridement: Mild Bleeding Controlled with: Pressure and Compression and gauze Patient tolerated procedure: Patient tolerated procedure well Post-Debridement Measurements and Additional Note: Post-Debridement Measurements/Treatment - Nurse 1 - General Ulcer Assessment Start: 06/18/23 10:15 Freq: Status: Active Protocol: JUSTIN Activity Type Activity Date Activity User E-sign Co-sign Detail Recorded Client Recorded Date Recorded By Document 06/18/23 10:15 [facility] Desktop 06/18/23 10:23 [facility] 06/18/23 10:15 - Today's Visit Information Type of service Follow-up Visit (Physician/SLOPE HOIST OPERATOR ) Arrival Mode Ambulatory, Walker Transfer Assistance None Patient Identification Verified (Name & Yes ) Patient Requires Transmission-Based No Precautions Height and Weight Body Mass Index (BMI) 20.0 BMI Classification Normal Vital Signs Temperature (97.8 F-99.1 F) 97.8 F Temperature Source Temporal Pulse Rate (60-100) 65 Pulse Location Monitor Respiratory Rate (12-18) 16 Respiratory rate source Observation Oxygen Delivery Method Room Air Blood Pressure (90/60-120/80) 149/77 H Blood Pressure Mean (mm Hg) 101 Source Monitor Position Sitting History Since Last Visit- (Skip if this is Patient's initial visit) Have you changed medications since your No last visit? Any new allergies or adverse reactions No Had a fall/change in ADL's that may No increase risk of falls Signs or symptoms of abuse and/or No neglect since last visit Have you been in the hospital since your No last visit? Has dressing in place as prescribed Yes Has compression in place as prescribed N/A Has offloadiing in place as prescribed N/A Experienced any changes in pain level or No management Left Footwear Regular Shoe Right Footwear Regular Shoe Pain Scale: 0-10 Numeric Is Patient Pain Free? Yes - Nurse 1 - General Ulcer Measurement Start: 06/18/23 10:15 Freq: Status: Active Protocol: Activity Type Activity Date Activity User E-sign Co-sign Detail Recorded Client Recorded Date Recorded By Document 06/18/23 10:15 [facility] Desktop 06/18/23 10:23 [facility] 06/18/23 10:15 Wound Center Nurse 1 1. sacral -Combined with other wound No -Current Size (cm) - Length 0.7 -Current Size (cm) - Width 0.1 -Current Size (cm) - Depth 0.5 -Total Square Cm 0.07 -Date of Last Picture (Recall this 06/18/23 field) -Photo Taken Yes -Epithelialization None Present -Tunneling No -Undermining/Tunneling No -Circular Undermining No -Exudate Amt Medium -Exudate Type Serosanguineous -Wound Margin Thickened -Granulation Amt Large (67-100%) -Granulation Quality Red -Slough/Fibrin Yes -Necrosis Amt Small (1-33%) -Necrotic Tissue Type Adherent Slough -Texture (Mahnaz-wound Skin Appearance) No Abnormality, Assessed, Scarring -Moisture (Mahnaz-wound Skin Appearance) Assessed,Dry/ Scaly -Color (Mahnaz-wound Skin Appearance) Assessed -Temperature (Mahnaz-wound Skin No Abnormality Appearance) (Pt Warm) -Tenderness on Palpation (Mahnaz-wound No Skin Appearance) -Ulcer Cleansing Rinsed/ Irrigated with Saline -Foul Odor after Cleansing No -Anesthetic Used 5% Lidocaine Gel - Nurse 2 - General Ulcer CM Notes Start: 06/18/23 10:15 Freq: Status: Active Protocol: Activity Type Activity Date Activity User E-sign Co-sign Detail Recorded Client Recorded Date Recorded By Document 06/18/23 10:46 Laptop 06/18/23 10:48 06/18/23 10:46 Wound Center Nurse 2 -Time 10:47 -Correct Patient Yes -Correct Side, Site, Position Yes -Correct Procedure Yes -Procedure Performed Yes -Type of Procedure Debridement -Clinical Debridement Muscle / Fascia -Tissue Removed Muscle,Fascia -Post Debridement (cm) - Length 1.0 -Post Debridement (cm) - Width 0.3 -Post Debridement (cm) - Depth 0.3 -Total Square (Post) (cm) 0.30 -Area of Debridement (cm) - Length 1.0 -Area of Debridement (cm) - Width 0.3 -Total Square (Area) (cm) 0.30 -Tunneling No -Undermining/Tunneling No -Circular Undermining No -Wound/Ulcer Outcome Not Healed -Ulcer Cleansing Rinsed/ Irrigated with Saline -Foul Odor after Cleansing No -Bioengineered Tissue No -Bleeding Controlled with Pressure -Treatment Response Procedure Tolerated Well -Offloading No -Debridement - Muscle / Fascia, 1st Yes 20sq cm Pain Scale: 0-10 Numeric Is Patient Pain Free? Yes - Nurse 3 - General Ulcer D/C NN Start: 06/18/23 10:15 Freq: Status: Active Protocol: Activity Type Activity Date Activity User E-sign Co-sign Detail Recorded Client Recorded Date Recorded By Document 06/18/23 10:56 KW Desktop 06/18/23 10:57 KW 06/18/23 10:56 Wound Care Center Nurse 3 1. sacral -Ulcer Cleansing Rinsed/ Irrigated with Saline -Primary Dressing Applied Aquacel AG 2x2 -Primary Dressing Covered/Secured with Dry Gauze, Secured with Tape -Aquacel AG 2x2 1 Pain Scale: 0-10 Numeric Is Patient Pain Free? Yes - Visit Discharge Discharge Condition Stable Ambulatory Status Ambulatory Transportation Private Auto Medication Reconcilliation completed & No provided to patient/care provider Clinical Summary of Care Provided Yes Assessment/Plan Assessment/Plan (1) Pressure ulcer of sacral region, stage 4: CODE(S): L89.154 - Pressure ulcer of sacral region, stage 4 (2) Osteomyelitis of left side of pelvis: CODE(S): M86.9 - Osteomyelitis, unspecified (3) Rheumatoid arthritis: CODE(S): M06.9 - Rheumatoid arthritis, unspecified (4) Debility: CODE(S): R53.81 - Other malaise PLAN: Plan Wound care - She has had 10 applications of Epifix. Moistened Aquacel-Ag topped with [place] SAP/Foam border dressing 3 times a week. It would be beneficial to have the dressing changed daily, but the patient states that she is not able to do that herself. She is looking to see if someone can change it on T- with home health changing M-W-, it would at least get changed 5 times per week. Wound culture obtained 12/27/22 was positive for Corynebacterium striatum. No treatment was needed. Wound culture obtained 11/01/22 was positive for Pseudomonas aeruginosa (very rare amount), Corynebacterium striatum, and Anaerobic cocci. She is allergic to the oral options to treat the Pseudomonas. I spoke with the hospital pharmacist Audra Martinez, on 11/08/22, about her wound culture and she stated that fluoroquinolones are the only option to treat pseudomonas. She completed the Diflucan for her positive operative fungal cultures. Labs drawn on 10/13/22: Total Bili 0.30, AST 17, ALT 20, Alk Phos 151. On 07/25/22 Alk Phos 152. Prealbumin 12.8 on 05/23/22. Encouraged increase protein supplementation. She state she is drinking Tommy 1-2 times per day in addition to her increase in dietary protein. There is a lot of chronic scarring on the edges as well as the base of the ulcer. This chronic bursal scar tissue can be a hindrance to healing. A maintenance operative debridement may be necessary to help jump start the healing process. Patient will think about the surgery and let us know, but she would really like to avoid surgery if possible. Followup 1 week.
[2023-07-09 10:03] VITALS: BP 164/68; PULSE 78; RESP 18; TEMP 36.3
--- NOTE | 2023-07-09 12:57 | PCM.WC.PN ---
History of Present Illness Date of Service: 07/09/23 Chief Complaint: Left sacral ulcer History of Wound: 73 year old female with below past medical history suffered fall from second story, hospitalized for multi trauma, underwent left tibia intramedullary nail fixation, right hip anterograde intramedullary nail, complicated by encephalopathy from urinary tract infection, stage 4 left sacral pressure ulcer with chronic osteomyelitis, admitted to TCU on 04/17/22 with debility, there for rehabilitation, strengthening, prior to discharge home alone on 06/25/22 with home health/PT/OT. Surgery 05/22/22 - Excision necrotic left sacral pressure sore, Stage IV, with partial ostectomy for osteomyelitis. Wound care - Epifix placental connective tissue graft. Has had 9 applications thus far. Operative culture 05/22/22, soft tissue, positive for Eschericha coli, Streptococcus sanguinis, Corynebacterium amycolatum, Provotella oralis, Anaerobic cocci, and Fernanda albicans and Aspirgillus fumigatus. Operative culture 05/22/22, bone, positive for Provotella disiens and Fernanda albicans. She was treated with Levaquin and Augmentin. She developed muscle pain so the Levaquin was switched to Doxycycline. She was placed on Diflucan for the fungal cultures. Wound culture from 11/01/22 was positive for Pseudomonas aeruginosa (very rare). Corynebacterium striatum and Anaerobic cocci. With her multiple drug allergies, there is not an oral antibiotic to treat the Pseudomonas, but it is rare, so will start cleansing with chlorhexidine at the time of the dressing change 3 times per week and start her on Augmentin and probiotic. Wound culture from 12/27/22 positive for Corynebacterium striatum. No treatment was needed. Prealbumin from 05/23/22 was 12.8. Encourage nutritional supplementation with protein to help the healing process. Today she denies fever. Her appetite is good. She has had 10 applications of Epifix. Progress of Wound: The ulcer is smaller.. The wound bed is pink. There is some thickened scar tissue surrounding the ulcer. Objective Data Objective Data Vital Signs: Vital Signs Temp Pulse Resp BP O2 Del Method 97.3 F L 78 18 164/68 H Room Air 07/09/23 10:03 07/09/23 10:03 07/09/23 10:03 07/09/23 10:03 07/09/23 10:03 Oxygen Delivery Method Room Air Weight: 124 lb Body Mass Index (BMI) 20.0 Charges/Coding Procedures Integumentary 111xxx-113xx: [id number] Dana subq tissue 20 sq cm/< Debridement Note Debridement Note Wound debrided: #1 Left sacral area. Laterality: Left Wound Grade/Stage: IV Type of Debridement: Excisional debridement Anesthesia Used: 4% Lidocaine Solution Depth: Down to and including healthy tissue and in the subcutaneous layer Percentage of wound debrided: 100 Instrument Used: 3mm curette Tissue Removed: subcutaneous tissue and slough. Severity: Fat Layer Exposed (muscle is exposed. bone is palpable but not exposed and not debrided.) Amount of bleeding with debridement: Mild Bleeding Controlled with: Pressure and Compression and gauze Patient tolerated procedure: Patient tolerated procedure well Post-Debridement Measurements and Additional Note: Post-Debridement Measurements/Treatment - Nurse 1 - General Ulcer Assessment Start: 06/18/23 10:15 Freq: Status: Active Protocol: JUSTIN Activity Type Activity Date Activity User E-sign Co-sign Detail Recorded Client Recorded Date Recorded By Document 06/18/23 10:15 [facility] [employer] [employer] 06/18/23 10:23 YoungCurrent Document 07/09/23 10:03 Travel Appeal Desktop 07/09/23 10:12 Travel Appeal 06/18/23 07/09/23 10:15 10:03 - Today's Visit Information Type of service Follow-up Visit Follow-up Visit (Physician/TICKETING AGENT (Physician/TICKETING AGENT ) ) Arrival Mode Ambulatory, Ambulatory, Walker Walker Transfer Assistance None Patient Identification Verified (Name & Yes Yes ) Patient Requires Transmission-Based No Precautions Height and Weight Body Mass Index (BMI) 20.0 20.0 BMI Classification Normal Normal Vital Signs Temperature (97.8 F-99.1 F) 97.8 F 97.3 F L Temperature Source Temporal Temporal Pulse Rate (60-100) 65 78 Pulse Location Monitor Monitor Respiratory Rate (12-18) 16 18 Respiratory rate source Observation Observation Oxygen Delivery Method Room Air Room Air Blood Pressure (90/60-120/80) 149/77 H 164/68 H Blood Pressure Mean (mm Hg) 101 100 Source Monitor Monitor Position Sitting Sitting Blood Pressure Location Left Arm History Since Last Visit- (Skip if this is Patient's initial visit) Have you changed medications since your No No last visit? Any new allergies or adverse reactions No No Had a fall/change in ADL's that may No No increase risk of falls Signs or symptoms of abuse and/or No No neglect since last visit Have you been in the hospital since your No No last visit? Has dressing in place as prescribed Yes Yes Has compression in place as prescribed N/A No Has offloadiing in place as prescribed N/A No Experienced any changes in pain level or No No management Left Footwear Regular Shoe Regular Shoe Right Footwear Regular Shoe Regular Shoe Pain Scale: 0-10 Numeric Is Patient Pain Free? Yes Yes WC - Nurse 1 - General Ulcer Measurement Start: 06/18/23 10:15 Freq: Status: Active Protocol: Activity Type Activity Date Activity User E-sign Co-sign Detail Recorded Client Recorded Date Recorded By Document 06/18/23 10:15 [employer] Desktop 06/18/23 10:23 [employer]Current Document 07/09/23 10:03 Travel Appeal Desktop 07/09/23 10:12 KW 06/18/23 07/09/23 10:15 10:03 Wound Center Nurse 1 1. sacral -Combined with other wound No -Current Size (cm) - Length 0.7 0.1 -Current Size (cm) - Width 0.1 0.1 -Current Size (cm) - Depth 0.5 0.1 -Total Square Cm 0.07 0.01 -Date of Last Picture (Recall this 06/18/23 field) -Photo Taken Yes -Epithelialization None Present -Tunneling No -Undermining/Tunneling No -Circular Undermining No -Exudate Amt Medium None Present -Exudate Type Serosanguineous -Wound Margin Thickened -Granulation Amt Large (67-100%) -Granulation Quality Red -Slough/Fibrin Yes -Necrosis Amt Small (1-33%) -Necrotic Tissue Type Adherent Slough -Texture (Mahnaz-wound Skin Appearance) No Abnormality, Assessed, Scarring -Moisture (Mahnaz-wound Skin Appearance) Assessed,Dry/ Scaly -Color (Mahnaz-wound Skin Appearance) Assessed -Temperature (Mahnaz-wound Skin No Abnormality Appearance) (Pt Warm) -Tenderness on Palpation (Mahnaz-wound No Skin Appearance) -Ulcer Cleansing Rinsed/ Rinsed/ Irrigated with Irrigated with Saline Saline -Foul Odor after Cleansing No -Anesthetic Used 5% Lidocaine 5% Lidocaine Gel Gel -Wound Comment(s) Scabbed over. - Nurse 2 - General Ulcer CM Notes Start: 06/18/23 10:15 Freq: Status: Active Protocol: Activity Type Activity Date Activity User E-sign Co-sign Detail Recorded Client Recorded Date Recorded By Document 06/18/23 10:46 Laptop 06/18/23 10:48 Document 07/09/23 10:21 Laptop 07/09/23 10:26 06/18/23 07/09/23 10:46 10:21 Wound Center Nurse 2 1. sacral -Time 10:47 10:24 -Correct Patient Yes Yes -Correct Side, Site, Position Yes Yes -Correct Procedure Yes Yes -Procedure Performed Yes Yes -Type of Procedure Debridement Debridement -Clinical Debridement Muscle / Fascia Subcutaneous -Tissue Removed Muscle,Fascia Subcutaneous -Post Debridement (cm) - Length 1.0 0.2 -Post Debridement (cm) - Width 0.3 0.5 -Post Debridement (cm) - Depth 0.3 0.2 -Total Square (Post) (cm) 0.30 0.10 -Area of Debridement (cm) - Length 1.0 0.2 -Area of Debridement (cm) - Width 0.3 0.5 -Total Square (Area) (cm) 0.30 0.10 -Tunneling No No -Undermining/Tunneling No No -Circular Undermining No No -Wound/Ulcer Outcome Not Healed Not Healed -Ulcer Cleansing Rinsed/ Irrigated with Saline -Foul Odor after Cleansing No -Bioengineered Tissue No -Bleeding Controlled with Pressure Pressure -Treatment Response Procedure Procedure Tolerated Well Tolerated Well -Offloading No No -Debridement - Subq, 1st 20sq cm Yes -Debridement - Muscle / Fascia, 1st Yes 20sq cm Pain Scale: 0-10 Numeric Is Patient Pain Free? Yes Yes - Nurse 3 - General Ulcer D/C NN Start: 06/18/23 10:15 Freq: Status: Active Protocol: Activity Type Activity Date Activity User E-sign Co-sign Detail Recorded Client Recorded Date Recorded By Document 06/18/23 10:56 [employer] 06/18/23 10:57 KW Document 07/09/23 10:33 [employer] 07/09/23 10:33 KW 06/18/23 07/09/23 10:56 10:33 Wound Care Center Nurse 3 1. sacral -Ulcer Cleansing Rinsed/ Rinsed/ Irrigated with Irrigated with Saline Saline -Primary Dressing Applied Aquacel AG 2x2 C Hydrogel ($), Mepilex Border -Primary Dressing Covered/Secured with Dry Gauze, Dry Gauze Secured with Tape -Aquacel AG 2x2 1 -Mepilex Border 1 Pain Scale: 0-10 Numeric Is Patient Pain Free? Yes Yes WC - Visit Discharge Discharge Condition Stable Stable Ambulatory Status Ambulatory Ambulatory, Walker Transportation Private Auto Private Auto Medication Reconcilliation completed & No No provided to patient/care provider Clinical Summary of Care Provided Yes Yes Assessment/Plan Assessment/Plan (1) Pressure ulcer of sacral region, stage 4: CODE(S): L89.154 - Pressure ulcer of sacral region, stage 4 (2) Osteomyelitis of left side of pelvis: CODE(S): M86.9 - Osteomyelitis, unspecified (3) Rheumatoid arthritis: CODE(S): M06.9 - Rheumatoid arthritis, unspecified (4) Debility: CODE(S): R53.81 - Other malaise PLAN: Plan Wound care - She has had 10 applications of Epifix. stop moistened Aquacel-Ag and start Collagen hydrogel covered with fluffed gauze then topped with [place] SAP/Foam border dressing daily (or when she has someone helping her with her dressing changes). It would be beneficial to have the dressing changed daily, but the patient states that she is not able to do that herself. She now has someone can change it on - with home health changing M-W-, so it is getting changed 5 times per week. Wound culture obtained 12/27/22 was positive for Corynebacterium striatum. No treatment was needed. Wound culture obtained 11/01/22 was positive for Pseudomonas aeruginosa (very rare amount), Corynebacterium striatum, and Anaerobic cocci. She is allergic to the oral options to treat the Pseudomonas. I spoke with the hospital pharmacist Audra Martinez, on 11/08/22, about her wound culture and she stated that fluoroquinolones are the only option to treat pseudomonas. She completed the Diflucan for her positive operative fungal cultures. Labs drawn on 10/13/22: Total Bili 0.30, AST 17, ALT 20, Alk Phos 151. On 07/25/22 Alk Phos 152. Prealbumin 12.8 on 05/23/22. Encouraged increase protein supplementation. She state she is drinking Tommy 1-2 times per day in addition to her increase in dietary protein. There is a lot of chronic scarring on the edges as well as the base of the ulcer. This chronic bursal scar tissue can be a hindrance to healing. A maintenance operative debridement may be necessary to help jump start the healing process. Patient will think about the surgery and let us know, but she would really like to avoid surgery if possible. Followup 1 week.
== END 2023-07-11 23:59 | disposition home or self-care (01) ==
LOC: WC 10:15
PROVIDERS: PCP Family Medicine; Referring Provider Family Medicine; Visit Provider Nurse Practitioner Family
DX: L89.154 Pressure ulcer of sacral region, stage 4 (principal); M06.9 Rheumatoid arthritis, unspecified; M86.8X8 Other osteomyelitis, other site; R53.81 Other malaise; Z79.82 Long term (current) use of aspirin; Z79.899 Other long term (current) drug therapy
CPT/HCPCS: 11042; 11043

== ENCOUNTER 2023-07-23 10:02 | Outpatient (RCR) | payer MEDICARE, OTHER, SELFPAY ==
[2023-07-12 00:24] VITALS: BP 164/68; PULSE 78; RESP 18; TEMP 36.3
[2023-07-23 10:05] VITALS: BP 155/84; PULSE 79; RESP 16; TEMP 36.6
--- NOTE | 2023-07-23 10:27 | PCM.WC.PN ---
History of Present Illness Date of Service: 07/23/23 Chief Complaint: Left sacral ulcer History of Wound: 73 year old female with below past medical history suffered fall from second story, hospitalized for multi trauma, underwent left tibia intramedullary nail fixation, right hip anterograde intramedullary nail, complicated by encephalopathy from urinary tract infection, stage 4 left sacral pressure ulcer with chronic osteomyelitis, admitted to TCU on 04/17/22 with debility, there for rehabilitation, strengthening, prior to discharge home alone on 06/25/22 with home health/PT/OT. Surgery 05/22/22 - Excision necrotic left sacral pressure sore, Stage IV, with partial ostectomy for osteomyelitis. Wound care - Epifix placental connective tissue graft. Has had 9 applications thus far. Operative culture 05/22/22, soft tissue, positive for Eschericha coli, Streptococcus sanguinis, Corynebacterium amycolatum, Provotella oralis, Anaerobic cocci, and Fernanda albicans and Aspirgillus fumigatus. Operative culture 05/22/22, bone, positive for Provotella disiens and Fernanda albicans. She was treated with Levaquin and Augmentin. She developed muscle pain so the Levaquin was switched to Doxycycline. She was placed on Diflucan for the fungal cultures. Wound culture from 11/01/22 was positive for Pseudomonas aeruginosa (very rare). Corynebacterium striatum and Anaerobic cocci. With her multiple drug allergies, there is not an oral antibiotic to treat the Pseudomonas, but it is rare, so will start cleansing with chlorhexidine at the time of the dressing change 3 times per week and start her on Augmentin and probiotic. Wound culture from 12/27/22 positive for Corynebacterium striatum. No treatment was needed. Prealbumin from 05/23/22 was 12.8. Encourage nutritional supplementation with protein to help the healing process. Today she denies fever. Her appetite is good. She has had 10 applications of Epifix. Progress of Wound: Healed. Objective Data Objective Data Vital Signs: Vital Signs Temp Pulse Resp BP O2 Del Method 97.8 F 79 16 155/84 H Room Air 07/23/23 10:05 07/23/23 10:05 07/23/23 10:05 07/23/23 10:05 07/23/23 10:05 Oxygen Delivery Method Room Air Weight: 124 lb Body Mass Index (BMI) 20.0 Prealbumin from 05/23/22 was 12.8.? Encourage nutritional supplementation with protein to help the healing process. Lab / Micro Data Attestation: I reviewed the patient's lab results. Charges/Coding Visit Charges Office Visits / Consults: 21011 OV L3 Est 20min (ICD-10 - L89.154, M86.9, M06.9, R53.81) Physical Exam Narrative General - Alert and Oriented HEENT - PERRL. EOMI. Neck - Supple and nontender. Lungs - Clear to auscultation. Heart - Regular rate and rhythm. Abdomen - Soft and nondistended. Sacral area - Ulcer has healed. Neuro - CN II-XII grossly intact. Psych - Normal mood and affect. Debridement Note Debridement Note Wound debrided: #1 Left sacral area. Laterality: Left Wound Grade/Stage: IV No debridement was completed: No debridement was completed today (The sacral ulcer has healed.) Post-Debridement Measurements and Additional Note: Post-Debridement Measurements/Treatment - Nurse 1 - General Ulcer Assessment Start: 07/23/23 10:04 Freq: Status: Active Protocol: [email or web address] Activity Type Activity Date Activity User E-sign Co-sign Detail Recorded Client Recorded Date Recorded By Document 07/23/23 10:05 [facility] Desktop 07/23/23 10:14 [facility] 07/23/23 10:05 - Today's Visit Information Type of service Follow-up Visit (Physician/DEPARTMENT SALES MANAGER ) Arrival Mode Ambulatory, Walker Transfer Assistance None Patient Identification Verified (Name & Yes ) Patient Requires Transmission-Based No Precautions Height and Weight Body Mass Index (BMI) 20.0 BMI Classification Normal Vital Signs Temperature (97.8 F-99.1 F) 97.8 F Temperature Source Temporal Pulse Rate (60-100) 79 Pulse Location Monitor Respiratory Rate (12-18) 16 Respiratory rate source Observation Oxygen Delivery Method Room Air Blood Pressure (90/60-120/80) 155/84 H Blood Pressure Mean (mm Hg) 107 Source Monitor Position Sitting History Since Last Visit- (Skip if this is Patient's initial visit) Have you changed medications since your No last visit? Any new allergies or adverse reactions No Had a fall/change in ADL's that may No increase risk of falls Signs or symptoms of abuse and/or No neglect since last visit Have you been in the hospital since your No last visit? Has dressing in place as prescribed Yes Has compression in place as prescribed N/A Has offloadiing in place as prescribed N/A Experienced any changes in pain level or No management Left Footwear Regular Shoe Right Footwear Regular Shoe Pain Scale: 0-10 Numeric Is Patient Pain Free? Yes - Nurse 1 - General Ulcer Measurement Start: 07/23/23 10:04 Freq: Status: Active Protocol: Activity Type Activity Date Activity User E-sign Co-sign Detail Recorded Client Recorded Date Recorded By Document 07/23/23 10:05 [facility] Desktop 07/23/23 10:14 [facility] 07/23/23 10:05 Wound Center Nurse 1 1. sacral -Combined with other wound No -Current Size (cm) - Length 0.1 -Current Size (cm) - Width 0.1 -Current Size (cm) - Depth 0.1 -Total Square Cm 0.01 -Date of Last Picture (Recall this 07/23/23 field) -Photo Taken Yes -Epithelialization Medium 34-66% -Tunneling No -Undermining/Tunneling No -Circular Undermining No -Exudate Amt Small -Exudate Type Sanguineous -Wound Margin Thickened & Rolled Under -Texture (Mahnaz-wound Skin Appearance) Assessed, Scarring -Moisture (Mahnaz-wound Skin Appearance) Assessed -Color (Mahnaz-wound Skin Appearance) Assessed -Temperature (Mahnaz-wound Skin No Abnormality Appearance) (Pt Warm) -Tenderness on Palpation (Mahnaz-wound No Skin Appearance) -Ulcer Cleansing Rinsed/ Irrigated with Saline -Foul Odor after Cleansing No -Anesthetic Used 5% Lidocaine Gel BRADEN - Nurse 2 - General Ulcer CM Notes Start: 07/23/23 10:04 Freq: Status: Active Protocol: Activity Type Activity Date Activity User E-sign Co-sign Detail Recorded Client Recorded Date Recorded By Document 07/23/23 10:25 Laptop 07/23/23 10:27 07/23/23 10:25 Wound Center Nurse 2 -Correct Patient No -Correct Side, Site, Position No -Correct Procedure No -Procedure Performed No -Post Debridement (cm) - Length 0 -Post Debridement (cm) - Width 0 -Post Debridement (cm) - Depth 0 -Total Square (Post) (cm) 0 -Area of Debridement (cm) - Length 0 -Area of Debridement (cm) - Width 0 -Total Square (Area) (cm) 0 -Wound/Ulcer Outcome Healed- Epithelialized Pain Scale: 0-10 Numeric Is Patient Pain Free? Yes Assessment/Plan Assessment/Plan (1) Pressure ulcer of sacral region, stage 4: CODE(S): L89.154 - Pressure ulcer of sacral region, stage 4 (2) Osteomyelitis of left side of pelvis: CODE(S): M86.9 - Osteomyelitis, unspecified (3) Rheumatoid arthritis: CODE(S): M06.9 - Rheumatoid arthritis, unspecified (4) Debility: CODE(S): R53.81 - Other malaise PLAN: Plan Wound care - She has had 10 applications of Epifix. She had been using Hydrogel. The sacral ulcer has healed. Can stop the Hydrogel. Prealbumin 12.8 on 05/23/22. Encouraged increase protein supplementation which will help to strengthen scar over the ensuing months. Massage the healed scar with skin lotion daily to help soften up the scar. Followup on an as needed basis.
== END 2023-07-23 15:36 | disposition home or self-care (01) ==
LOC: WC 10:02
PROVIDERS: PCP Family Medicine; Referring Provider Family Medicine; Visit Provider Nurse Practitioner Family
DX: Z09 Encounter for follow-up examination after completed treatment for conditions other than malignant neoplasm (principal); M06.9 Rheumatoid arthritis, unspecified; R53.81 Other malaise
CPT/HCPCS: 99213; G0463